=== PATIENT | female | born 1960 | race Caucasian/White ===

== ENCOUNTER 2016-12-19 11:11 | Observation (INO) | payer OTHER ==
[2016-12-19] MEDS ORDERED: SODIUM CHLORIDE 0.9% 1,000 ML IV STA (11:44)
--- NOTE | 2016-12-19 11:47 | ED ---
General Adult HPI - General Chief complaint: Weakness Stated complaint: weakness Time Seen by Provider: 12/19/16 11:22 Source: patient, family, RN notes reviewed Mode of arrival: wheelchair Limitations: no limitations - History of Present Illness Initial comments: Patient is a pleasant 56-year-old female presenting to the emergency Department complaining of generalized weakness. Symptoms started 1 week ago and have progressed since that time. Weakness is mostly of the legs however patient does admit to having some weakness of the upper body also. No history of similar symptoms previously. Patient states she is only able to take a few steps now without using a walker. Patient does not normally use a walker however head around from a previous pelvic fracture. Patient admits to being on a liquid diet for the past month and questions if this could be related. No confusion. - Related Data Home Medications Medication Instructions Recorded Confirmed Folic Acid 1 mg PO DAILY 02/06/16 12/19/16 Omeprazole [PriLOSEC] 20 mg PO DAILY PRN 02/06/16 12/19/16 Hydroxychloroquine Sulfate 200 mg PO DAILY 06/12/16 12/19/16 [Plaquenil] Metoprolol Succinate (ER) [Toprol 50 mg PO DAILY 06/13/16 12/19/16 Xl] Potassium Chloride ER [K-Dur 20] 20 meq PO DAILY 06/13/16 12/19/16 predniSONE [Prednisone] 5 mg PO DAILY 06/13/16 12/19/16 ALPRAZolam [Xanax] 0.5 mg PO DAILY PRN 12/19/16 12/19/16 DULoxetine HCL [Cymbalta] 60 mg PO DAILY 12/19/16 12/19/16 Gabapentin 600 mg PO TID 12/19/16 12/19/16 Lacosamide [Vimpat] 5 mg PO DAILY 12/19/16 12/19/16 Multivitamins, Thera [Multivitamin] 1 tab PO DAILY 12/19/16 12/19/16 Allergies Allergy/AdvReac Type Severity Reaction Status Date / Time No Known Allergies Allergy Verified 12/19/16 11:55 Review of Systems ROS Statement: Those systems with pertinent positive or pertinent negative responses have been documented in the HPI. ROS Other: All systems not noted in ROS Statement are negative. Constitutional: Denies: fever Eyes: Denies: eye pain ENT: Denies: ear pain Respiratory: Denies: cough Cardiovascular: Denies: chest pain Endocrine: Reports: fatigue Gastrointestinal: Denies: abdominal pain Genitourinary: Denies: dysuria Musculoskeletal: Denies: back pain Skin: Denies: rash Neurological: Reports: weakness. Denies: headache, confusion Past Medical History Past Medical History: Hypertension, Osteoarthritis (OA), Rheumatoid Arthritis ( RA) Additional Past Medical History / Comment(s): neuropathy Vitiligo, Raynaud's peripheral neuropathy. History of Any Multi-Drug Resistant Organisms: MRSA Date of last positivie culture/infection: 2012/MRSA MDRO Source:: left axilla Past Surgical History: Appendectomy, Section, Joint Replacement, Orthopedic Surgery, Tonsillectomy, Tubal Ligation Additional Past Surgical History / Comment(s): shoulder replacement Past Anesthesia/Blood Transfusion Reactions: No Reported Reaction Past Psychological History: Depression Smoking Status: Current every day smoker Past Alcohol Use History: Daily Past Drug Use History: None Reported - Past Family History Mother Family Medical History: No Reported History, Diabetes Mellitus, Hyperlipidemia, Hypertension Father Family Medical History: Diabetes Mellitus, Hypertension (black lung from occupational exposure) Sister(s) Family Medical History: No Reported History Son(s) Family Medical History: No Reported History General Exam Limitations: no limitations General appearance: alert, in no apparent distress Head exam: Present: atraumatic Eye exam: Present: normal appearance, PERRL ENT exam: Present: normal oropharynx Neck exam: Present: normal inspection Respiratory exam: Present: normal lung sounds bilaterally Cardiovascular Exam: Present: regular rate, normal rhythm GI/Abdominal exam: Present: soft. Absent: tenderness Extremities exam: Present: normal inspection Neurological exam: Present: alert, oriented X3, CN II-XII intact Expanded Patient oriented to: Present: person, place, time Speech: Present: fluid speech Cranial nerves: EOM's Intact: Normal, Facial Sensation: Normal Cerebellar function: Finger to Nose: Normal Sensory exam: Upper Extremity Light Touch: Normal, Lower Extremity Light Touch: Normal Motor strength exam: RUE: 5, LUE: 5, RLE: 4 (Minimal drift), LLE: 4 ( MinimalDrift) Eye Response: (4) open spontaneously Motor Response: (6) obeys commands Verbal Response: (5) oriented Psychiatric exam: Present: normal affect, normal mood Skin exam: Absent: rash Course Vital Signs 12/19/16 12/19/16 12/19/16 11:15 11:33 13:26 Temperature 97.8 F Pulse Rate 97 87 82 Respiratory 20 15 14 Rate Blood Pressure 108/72 138/90 124/72 O2 Sat by Pulse 100 96 96 Oximetry EKG Findings - EKG Comments: EKG Findings:: Normal sinus rhythm at 87. DE 128. QRS 96. Qt 422. QTC 507. Normal axis. Normal QRS. No acute ST change. Medical Decision Making - Medical Decision Making Patient reexamined and unchanged. Case was discussed in detail with Dr. Arthur, who will admit for Dr. Garcia. She does recommend further imaging of the lumbar spine and neurology evaluation. - Lab Data Result diagrams: 12/19/16 11:49 12/19/16 11:49 Lab Results 12/19/16 12/19/16 12/19/16 Range/Units 11:49 11:49 11:49 WBC 5.3 (3.8-10.6) k/uL RBC 4.48 (3.80-5.40) m/uL Hgb 14.1 (11.4-16.0) gm/dL Hct 46.4 H (34.0-46.0) % MCV 103.5 H (80.0-100.0) fL MCH 31.5 (25.0-35.0) pg MCHC 30.5 L (31.0-37.0) g/dL RDW 14.1 (11.5-15.5) % Plt Count 114 L (150-450) k/uL Neutrophils % 68 % Lymphocytes % 22 % Monocytes % 5 % Eosinophils % 3 % Basophils % 1 % Neutrophils # 3.6 (1.3-7.7) k/uL Lymphocytes # 1.2 (1.0-4.8) k/uL Monocytes # 0.3 (0-1.0) k/uL Eosinophils # 0.1 (0-0.7) k/uL Basophils # 0.0 (0-0.2) k/uL Hypochromasia Slight Macrocytosis Slight PT (9.0-12.0) sec INR (<1.1) APTT (22.0-30.0) sec Sodium 138 (137-145) mmol/L Potassium 5.1 (3.5-5.1) mmol/L Chloride 103 (98-107) mmol/L Carbon Dioxide 29 (22-30) mmol/L Anion Gap 6 mmol/L BUN 10 (7-17) mg/dL Creatinine 0.60 (0.52-1.04) mg/dL Est GFR (MDRD) Af Amer >60 (>60 ml/min/1.73 sqM) Est GFR (MDRD) Non-Af >60 (>60 ml/min/1.73 sqM) Glucose 120 H (74-99) mg/dL Calcium 9.2 (8.4-10.2) mg/dL Ionized Calcium Ramona 5.2 (4.5-5.3) mg/dL Phosphorus 3.4 (2.5-4.5) mg/dL Magnesium 1.5 L (1.6-2.3) mg/dL Total Bilirubin 1.3 (0.2-1.3) mg/dL AST 94 H (14-36) U/L ALT 85 H (9-52) U/L Alkaline Phosphatase 210 H (38-126) U/L Total Creatine Kinase <20 L (30-135) U/L CK-MB (CK-2) 0.5 (0.0-2.4) ng/mL CK-MB (CK-2) Rel Index 0.0 Troponin I <0.012 (0.000-0.034) ng/mL Total Protein 6.2 L (6.3-8.2) g/dL Albumin 2.9 L (3.5-5.0) g/dL TSH 1.730 (0.465-4.680) mIU/L Free T4 0.99 (0.78-2.19) ng/dL Free T3 pg/mL 3.8 (2.8-5.3) pg/ml 12/19/16 Range/Units 11:49 WBC (3.8-10.6) k/uL RBC (3.80-5.40) m/uL Hgb (11.4-16.0) gm/dL Hct (34.0-46.0) % MCV (80.0-100.0) fL MCH (25.0-35.0) pg MCHC (31.0-37.0) g/dL RDW (11.5-15.5) % Plt Count (150-450) k/uL Neutrophils % % Lymphocytes % % Monocytes % % Eosinophils % % Basophils % % Neutrophils # (1.3-7.7) k/uL Lymphocytes # (1.0-4.8) k/uL Monocytes # (0-1.0) k/uL Eosinophils # (0-0.7) k/uL Basophils # (0-0.2) k/uL Hypochromasia Macrocytosis PT 11.6 (9.0-12.0) sec INR 1.2 (<1.1) APTT 23.2 (22.0-30.0) sec Sodium (137-145) mmol/L Potassium (3.5-5.1) mmol/L Chloride (98-107) mmol/L Carbon Dioxide (22-30) mmol/L Anion Gap mmol/L BUN (7-17) mg/dL Creatinine (0.52-1.04) mg/dL Est GFR (MDRD) Af Amer (>60 ml/min/1.73 sqM) Est GFR (MDRD) Non-Af (>60 ml/min/1.73 sqM) Glucose (74-99) mg/dL Calcium (8.4-10.2) mg/dL Ionized Calcium Ramona (4.5-5.3) mg/dL Phosphorus (2.5-4.5) mg/dL Magnesium (1.6-2.3) mg/dL Total Bilirubin (0.2-1.3) mg/dL AST (14-36) U/L ALT (9-52) U/L Alkaline Phosphatase (38-126) U/L Total Creatine Kinase (30-135) U/L CK-MB (CK-2) (0.0-2.4) ng/mL CK-MB (CK-2) Rel Index Troponin I (0.000-0.034) ng/mL Total Protein (6.3-8.2) g/dL Albumin (3.5-5.0) g/dL TSH (0.465-4.680) mIU/L Free T4 (0.78-2.19) ng/dL Free T3 pg/mL (2.8-5.3) pg/ml - Radiology Data Radiology results: image reviewed (Computed tomography scan of brain shows some atrophy otherwise no acute abnormality. Chest x-ray shows no acute process.) Disposition Clinical Impression: Lower extremity weakness Disposition: ADMITTED IP TO THIS HOSP
[2016-12-19 12:06] LABS: Basophils % (A) 1 %; CH 31.6; CHCM 30.7; Eosinophils # (A) 0.1 k/uL (0-0.7); Eosinophils % (A) 3 %; HCT 46.4 % (34.0-46.0); HDW 2.35; HGB 14.1 gm/dL (11.4-16.0); Hypochromasia Slight; Luc # (Auto) 0.14; Luc % (Auto) 3; Lymphocytes # (A) 1.2 k/uL (1.0-4.8); Lymphocytes % (A) 22 %; MCH 31.5 pg (25.0-35.0); MCHC 30.5 g/dL (31.0-37.0); MCV 103.5 fL (80.0-100.0); Macrocytosis Slight; Mean Platelet Volume 7.6; Monocytes # (A) 0.3 k/uL (0-1.0); Monocytes % (A) 5 %; Neutrophils # (A) 3.6 k/uL (1.3-7.7); Neutrophils % (A) 68 %; RBC 4.48 m/uL (3.80-5.40); RDW 14.1 % (11.5-15.5); WBC 5.3 k/uL (3.8-10.6); WBC (Perox) 5.62
[2016-12-19 12:11] LABS: ALT 85 U/L (9-52); AST 94 U/L (14-36); Alkaline Phosphatase 210 U/L (38-126); Anion Gap 6 mmol/L; Blood Urea Nitrogen 10 mg/dL (7-17); Calcium 9.2 mg/dL (8.4-10.2); Carbon Dioxide 29 mmol/L (22-30); Chloride 103 mmol/L (98-107); Glucose 120 mg/dL (74-99); Magnesium 1.5 mg/dL (1.6-2.3); Non-African American GFR(MDRD) >60 (>60 ml/min/1.73 sqM); Phosphorous 3.4 mg/dL (2.5-4.5); Potassium 5.1 mmol/L (3.5-5.1); Sodium 138 mmol/L (137-145); Total Bilirubin 1.3 mg/dL (0.2-1.3); Total Protein 6.2 g/dL (6.3-8.2)
[2016-12-19 12:23] LABS: Ionized Calcium 5.2 mg/dL (4.5-5.3)
[2016-12-19 12:30] LABS: INR 1.2 (<1.1); Partial Thromboplastin Time 23.2 sec (22.0-30.0); Prothrombin Time 11.6 sec (9.0-12.0)
[2016-12-19 12:33] LABS: Creatine Kinase <20 U/L (30-135)
--- NOTE | 2016-12-19 12:36 | XR ---
EXAMINATION TYPE: XR chest 2V DATE OF EXAM: 12/19/2016 12:28 PM COMPARISON: 06/12/2016 HISTORY: Shortness of breath TECHNIQUE: Frontal and lateral views of the chest are obtained. FINDINGS: Scattered senescent parenchymal changes noted. Hyperinflation compatible with COPD. No evidence for infiltrate. No evidence for atelectasis. Heart size is stable. Mediastinal structures are stable and grossly unremarkable. No evidence for hilar prominence. Degenerative changes dorsal spine. Multiple healed left-sided rib fractures. IMPRESSION: 1. No evidence for acute pulmonary disease.
--- NOTE | 2016-12-19 12:37 | CT ---
EXAMINATION TYPE: CT brain wo con DATE OF EXAM: 12/19/2016 12:29 PM HISTORY: Patient complains of weakness and dizziness. CT DLP: 967.1 mGycm. Automated Exposure Control for Dose Reduction was Utilized. TECHNIQUE: CT scan of the head is performed without contrast. COMPARISON: None. FINDINGS: There is no acute intracranial hemorrhage or midline shift identified. There is diffuse v entricular and sulcal prominence consistent with diffuse age-related cerebral atrophy. The globes are intact and the visualized sinuses are clear. Less opacified right mastoid air cells may reflect jose enital hypoplasia. Non formed right frontal sinus is present. Osseous structures are demineralized. IMPRESSION: No acute intracranial hemorrhage or midline shift. There is mild diffuse age-related ce rebral atrophy noted.
[2016-12-19 12:45] LABS: Creatine Kinase MB 0.5 ng/mL (0.0-2.4); Troponin I <0.012 ng/mL (0.000-0.034)
[2016-12-19] MEDS ORDERED: NALOXONE 0.4 MG/ML 1 ML VIAL IV PRN (13:53)
[2016-12-19] MEDS ORDERED: MAGNESIUM OXIDE 400 MG TAB PO STA (13:55)
[2016-12-19] MEDS ORDERED: LORazepam 2 MG/ML SYRINGE IV PRN (13:57)
[2016-12-19] MEDS ORDERED: PANTOPRAZOLE 40 MG TABLET PO PRN (15:14)
[2016-12-19] MEDS ORDERED: ALPRAZolam 0.5 MG TAB PO PRN (15:14)
--- NOTE | 2016-12-19 16:12 | P.HPIM ---
History of Present Illness H&P Date: 12/19/16 Chief Complaint: Lower extremity weakness, elevated liver function test, nausea and anorexia This is a 56-year-old lady patient of Dr. Bansal. She has underlying history of rheumatoid arthritis, hypertension peripheral neuropathy: Polyps. She follows with Dr. Nidhi encarnacion and Dr. Hernandez. She presented emergency room secondary to weakness for a few days. Patient has had anorexia no abdominal pain no appetite for the past 1 month lost 20 pounds steadily over the past one month. Patient has not had anything to eat except for negligible amount of fluids including pop. She has complained of lower extremity weakness and back pain. Patient does not have any abdominal pain no hematemesis hematochezia or urinary symptoms no headache she has some nausea no vomiting. Patient has difficulty in ambulating secondary to neuropathies in the lower extremities patient has impaired balance in such a way that she has now been using a walker for ambulation In Emergency room initial testing shows hemoglobin of 14.1 and WBC of 5.3 MCV of 103, INR of 1.2, AST ALT elevated at 94 and 85 respectively alkaline phosphatase 210, albumin and protein is low normal thyroid test alcohol is less than 10, MRI of the lumbar spine was requested to evaluate for spinal stenosis, general surgery was requested to evaluate for the ELEVATED alkaline phosphatase as well as the ALT AST, liver ultrasound was requested Review of Systems Constitutional: Reports as per HPI, Reports anorexia, Reports chronic pain, Reports lethargy, Reports weakness, Reports weight loss, Denies chills, Denies chronic headaches, Denies daytime sleepiness, Denies fatigue, Denies fever, Denies malaise, Denies night sweats, Denies poor appetite, Denies sweats, Denies weight gain Ears, nose, mouth and throat: Reports as per HPI, Denies ant. neck pain, Denies bleeding gums, Denies dental pain, Denies dysphagia, Denies epistaxis, Denies headache, Denies hoarseness, Denies mouth pain, Denies nasal congestion, Denies nasal discharge, Denies neck fullness/pressure, Denies neck lump, Denies nose pain, Denies odynophagia, Denies post-nasal drip, Denies sinus pain, Denies sinus pressure, Denies swelling in mouth, Denies swelling in throat, Denies sore throat, Denies vertigo, Denies voice changes Cardiovascular: Reports as per HPI, Denies chest pain, Denies claudication, Denies decreased exercise tolerance, Denies dyspnea on exertion, Denies edema, Denies high blood pressure, Denies irregular heart beat, Denies leg edema, Denies lightheadedness, Denies orthopnea, Denies palpitations, Denies paroxysmal nocturnal dyspnea, Denies phlebitis, Denies rapid heart beat, Denies shortness of breath, Denies syncope Gastrointestinal: Reports as per HPI, Reports nausea, Denies abdominal pain, Denies belching, Denies bloating, Denies BRBPR, Denies change in bowel habits, Denies coffee ground emesis, Denies constipation, Denies diarrhea, Denies dyspepsia, Denies early satiety, Denies excessive gas, Denies heartburn, Denies hematemesis, Denies hematochezia, Denies indigestion, Denies jaundice, Denies lactose intolerance, Denies loss of appetite, Denies melena, Denies vomiting Genitourinary: Reports as per HPI, Denies abnormal vaginal bleeding, Denies decreased libido, Denies difficulty conceiving, Denies difficulty voiding, Denies dysmenorrhea, Denies dyspareunia, Denies dysuria, Denies flank pain, Denies genital sores, Denies hematuria, Denies hot flashes, Denies incomplete emptying, Denies kidney stones, Denies menorrhagia, Denies mixed incontinence, Denies nocturia, Denies pelvic pain, Denies post void dribbling, Denies , Denies prolapse symptoms, Denies stress incontinence, Denies urge incontinence , Denies urgency, Denies urinary frequency, Denies vaginal discharge, Denies vaginal dryness, Denies vaginal itching, Denies vaginal odor Menstruation: Reports as per HPI, Denies amenorrhea, Denies amenorrhea on BC, Denies currently menstrual, Denies cycle < 21 days, Denies cycle > 35 days, Denies cycle variable, Denies menses 1-7 days, Denies menses 8 or > days, Denies menses variable, Denies period heavy, Denies period light, Denies period normal, Denies period spotting, Denies post hysterectomy, Denies postmenopausal , Denies premenarcheal Musculoskeletal: Reports as per HPI Integumentary: Reports as per HPI, Denies acne, Denies boils, Denies brittle nails, Denies change in hair/nails, Denies color changes, Denies darkening of skin, Denies depigmentation, Denies dryness, Denies foot/leg ulcers, Denies growths, Denies hirsutism, Denies lesions, Denies onychomycosis, Denies pruritus , Denies rash, Denies sores, Denies striae, Denies unusual bruising, Denies wounds Neurological: Reports as per HPI, Reports balance difficulties, Reports lack of coordination, Reports numbness, Denies aphasia, Denies ataxia, Denies burning pain, Denies change in mentation, Denies change in smell/taste, Denies change in speech, Denies confusion, Denies convulsions, Denies double vision, Denies gait dysfunction, Denies head injury, Denies headaches, Denies hearing difficulties, Denies loss of vision, Denies memory loss, Denies migraines, Denies motor disturbance, Denies paralysis, Denies paresthesias, Denies seizures , Denies sensory deficit, Denies spasticity, Denies syncope, Denies tic, Denies tingling, Denies transient paralysis, Denies tremors, Denies vertigo, Denies weakness, Denies visual changes Psychiatric: Reports as per HPI, Denies anhedonia, Denies anxiety, Denies anxiety attacks, Denies change in appetite, Denies change in libido, Denies change in sleep habits, Denies confusion, Denies depression, Denies difficulty concentrating, Denies disorientation, Denies hallucinations, Denies hopelessness , Denies hypersomnia, Denies insomnia, Denies irritability, Denies memory loss, Denies mood swings, Denies paranoia, Denies sadness/tearfulness, Denies sleep disturbances, Denies suicidal ideation Endocrine: Reports as per HPI, Denies cold intolerance, Denies deepening of the voice, Denies excessive sweating, Denies excessive thirst, Denies fatigue, Denies flushing, Denies heat intolerance, Denies high blood sugars, Denies increase in ring/shoe/hat size, Denies low blood sugars, Denies nocturia, Denies palpitations, Denies polydipsia, Denies polyphagia, Denies polyuria, Denies proptosis, Denies recent glucocorticoid use, Denies thyroid mass, Denies weight change Hematologic/Lymphatic: Reports as per HPI, Denies easy bleeding, Denies easy bruising, Denies lymphadenopathy, Denies lymphedema, Denies thrombophilia Allergic/Immunologic: Reports as per HPI, Denies allergic rhinitis, Denies anaphylaxis, Denies angioedema, Denies gluten intolerance, Denies persistent infections, Denies seasonal allergies, Denies urticaria, Denies wheezing Past Medical History Past Medical History: Hypertension, Osteoarthritis (OA), Rheumatoid Arthritis ( RA) Additional Past Medical History / Comment(s): neuropathy Vitiligo, Raynaud's peripheral neuropathy. History of Any Multi-Drug Resistant Organisms: MRSA Date of last positivie culture/infection: 06/11/12 MDRO Source:: Unknown Past Surgical History: Appendectomy, Section, Joint Replacement, Orthopedic Surgery, Tonsillectomy, Tubal Ligation Additional Past Surgical History / Comment(s): right shoulder replacement Past Anesthesia/Blood Transfusion Reactions: No Reported Reaction Past Psychological History: Depression Smoking Status: Current every day smoker Past Alcohol Use History: Daily Past Drug Use History: None Reported - Past Family History Mother Family Medical History: No Reported History, Diabetes Mellitus, Hyperlipidemia, Hypertension Father Family Medical History: Diabetes Mellitus, Hypertension Sister(s) Family Medical History: No Reported History Son(s) Family Medical History: No Reported History Medications and Allergies Home Medications Medication Instructions Recorded Confirmed Type Folic Acid 1 mg PO DAILY 02/06/16 12/19/16 History Omeprazole [PriLOSEC] 20 mg PO DAILY PRN 02/06/16 12/19/16 History Hydroxychloroquine Sulfate 200 mg PO DAILY 06/12/16 12/19/16 History [Plaquenil] Metoprolol Succinate (ER) [Toprol 50 mg PO DAILY 06/13/16 12/19/16 History Xl] Potassium Chloride ER [K-Dur 20] 20 meq PO DAILY 06/13/16 12/19/16 History predniSONE [Prednisone] 5 mg PO DAILY 06/13/16 12/19/16 History ALPRAZolam [Xanax] 0.5 mg PO DAILY PRN 12/19/16 12/19/16 History DULoxetine HCL [Cymbalta] 60 mg PO DAILY 12/19/16 12/19/16 History Gabapentin 600 mg PO TID 12/19/16 12/19/16 History Lacosamide [Vimpat] 5 mg PO DAILY 12/19/16 12/19/16 History Multivitamins, Thera [Multivitamin] 1 tab PO DAILY 12/19/16 12/19/16 History Allergies Allergy/AdvReac Type Severity Reaction Status Date / Time No Known Allergies Allergy Verified 12/19/16 11:55 Physical Exam Vitals: Vital Signs Temp Pulse Pulse Resp BP BP Pulse Ox 12/19/16 14:55 98.3 F 80 16 152/74 96 12/19/16 14:15 87 14 127/85 96 Intake and Output 12/19/16 12/19/16 12/19/16 06:59 14:59 22:59 Other: Weight 62.8 kg Patient Weight 12/20/16 06:59 Weight 62.8 kg - Constitutional General appearance: average body habitus, cooperative, no acute distress - EENT Eyes: anicteric sclerae, EOMI, PERRLA, dentition normal, normal appearance ENT: hearing grossly normal, normal oropharynx - Neck Neck: no lymphadenopathy, normal ROM, no other, no rigidity, no stridor, no thyromegaly - Respiratory Respiratory: bilateral: CTA, negative: diminished, dullness, rales, rhonchi - Cardiovascular Rhythm: regular Heart sounds: normal: S1, S2 Abnormal Heart Sounds: no systolic murmur, no diastolic murmur, no rub, no S3 Gallop, no S4 Gallop, no click, no other - Gastrointestinal General gastrointestinal: no absent bowel sounds, no decreased bowel sounds, no distended, no hepatomegaly, no hyperactive bowel sounds, no normal bowel sounds , no organomegaly, no rigid, no scaphoid, soft, no splenomegaly, no tenderness, no umbilical hernia, no ventral hernia - Integumentary Integumentary: normal, normal turgor - Neurologic Neurologic: CNII-XII intact - Musculoskeletal Musculoskeletal: generalized weakness, strength equal bilaterally - Psychiatric Psychiatric: A&O x's 3, appropriate affect, intact judgment & insight Results CBC & Chem 7: 12/19/16 11:49 12/19/16 11:49 Labs: Laboratory Results WBC 5.3 k/uL (3.8-10.6) 12/19/16 11:49 RBC 4.48 m/uL (3.80-5.40) 12/19/16 11:49 Hgb 14.1 gm/dL (11.4-16.0) 12/19/16 11:49 Hct 46.4 % (34.0-46.0) H 12/19/16 11:49 MCV 103.5 fL (80.0-100.0) H 12/19/16 11:49 MCH 31.5 pg (25.0-35.0) 12/19/16 11:49 MCHC 30.5 g/dL (31.0-37.0) L 12/19/16 11:49 RDW 14.1 % (11.5-15.5) 12/19/16 11:49 Plt Count 114 k/uL (150-450) L 12/19/16 11:49 Neutrophils % 68 % 12/19/16 11:49 Lymphocytes % 22 % 12/19/16 11:49 Monocytes % 5 % 12/19/16 11:49 Eosinophils % 3 % 12/19/16 11:49 Basophils % 1 % 12/19/16 11:49 Neutrophils # 3.6 k/uL (1.3-7.7) 12/19/16 11:49 Lymphocytes # 1.2 k/uL (1.0-4.8) 12/19/16 11:49 Monocytes # 0.3 k/uL (0-1.0) 12/19/16 11:49 Eosinophils # 0.1 k/uL (0-0.7) 12/19/16 11:49 Basophils # 0.0 k/uL (0-0.2) 12/19/16 11:49 Hypochromasia Slight 12/19/16 11:49 Macrocytosis Slight 12/19/16 11:49 PT 11.6 sec (9.0-12.0) 12/19/16 11:49 INR 1.2 (<1.1) 12/19/16 11:49 APTT 23.2 sec (22.0-30.0) 12/19/16 11:49 Sodium 138 mmol/L (137-145) 12/19/16 11:49 Potassium 5.1 mmol/L (3.5-5.1) 12/19/16 11:49 Chloride 103 mmol/L (98-107) 12/19/16 11:49 Carbon Dioxide 29 mmol/L (22-30) 12/19/16 11:49 Anion Gap 6 mmol/L 12/19/16 11:49 BUN 10 mg/dL (7-17) 12/19/16 11:49 Creatinine 0.60 mg/dL (0.52-1.04) 12/19/16 11:49 Est GFR (MDRD) Af Amer >60 (>60 ml/min/1.73 sqM) 12/19/16 11:49 Est GFR (MDRD) Non-Af >60 (>60 ml/min/1.73 sqM) 12/19/16 11:49 Glucose 120 mg/dL (74-99) H 12/19/16 11:49 Calcium 9.2 mg/dL (8.4-10.2) 12/19/16 11:49 Ionized Calcium [place] 5.2 mg/dL (4.5-5.3) 12/19/16 11:49 Phosphorus 3.4 mg/dL (2.5-4.5) 12/19/16 11:49 Magnesium 1.5 mg/dL (1.6-2.3) L 12/19/16 11:49 Total Bilirubin 1.3 mg/dL (0.2-1.3) 12/19/16 11:49 AST 94 U/L (14-36) H 12/19/16 11:49 ALT 85 U/L (9-52) H 12/19/16 11:49 Alkaline Phosphatase 210 U/L (38-126) H 12/19/16 11:49 Total Creatine Kinase <20 U/L (30-135) L 12/19/16 11:49 CK-MB (CK-2) 0.5 ng/mL (0.0-2.4) 12/19/16 11:49 CK-MB (CK-2) Rel Index 0.0 12/19/16 11:49 Troponin I <0.012 ng/mL (0.000-0.034) 12/19/16 11:49 Total Protein 6.2 g/dL (6.3-8.2) L 12/19/16 11:49 Albumin 2.9 g/dL (3.5-5.0) L 12/19/16 11:49 TSH 1.730 mIU/L (0.465-4.680) 12/19/16 11:49 Free T4 0.99 ng/dL (0.78-2.19) 12/19/16 11:49 Free T3 pg/mL 3.8 pg/ml (2.8-5.3) 12/19/16 11:49 Serum Alcohol <10 mg/dL 12/19/16 14:20 Thrombosis Risk Factor Assmnt - DVT/VTE Prophylaxis DVT/VTE Prophylaxis: Low risk, early ambulation encouraged - Choose All That Apply Any of the Below Risk Factors Present?: Yes Each Factor Represents 1 point: Age 41-60 years Other Risk Factors: No Other congenital or acquired thrombophilia - If yes, enter type in comment: No Thrombosis Risk Factor Assessment Total Risk Factor Score: 1 Thrombosis Risk Factor Assessment Level: Low Risk Assessment and Plan Plan: 1. Generalized weakness with low back pain, lower extremity weakness underlying peripheral neuropathy or spinal stenosis is expected. Patient's to continue on neuropathic pain control to include gabapentin, Cymbalta,, await MRI of the spine patient might need additional treatment including IV Solu- Medrol. Consult was made with Dr. Pacheco neurology 2. Malnutrition secondary to anorexia and diminished oral intake etiology is undetermined however she has underlying colon polyps diagnosed in 2016, as well as elevated liver function tests. Gallbladder pathology needs to be ruled out, continue on PPI treatments she is on chronic prednisone, consult was made with Dr. Paredes for cholestasis against obstructive jaundice, liver ultrasound gallbladder ultrasound was requested. 3. Rheumatoid arthritis on chronic prednisone, Plaquenil, no changes were made 4. Chronic prednisone patient was started on IV Protonix and to be maintained on oral prednisone post discharge 5. Anorexia cause is undetermined at this time gallbladder pathology needs to be ruled out. Patient might need a HIDA scan with CCK if ultrasound was negative 6. Elevated liver function test along with alkaline phosphatase elevation, normal bilirubins at this time. Patient also has chronic alcohol exposure her last alcohol intake was 2 weeks prior to admission. Repeat liver function test normal lipase noted on this current examination, abdominal ultrasound was requested 7. Impaired balance, physical therapy would be following the patient patient might need home therapies currently walker on a community ambulation 8. Chronic alcohol ingestion with ROM, last alcohol intake was 2 weeks prior to admission GI prophylaxis and DVT prophylaxis, early ambulation for caprini score of score of 1
--- NOTE | 2016-12-19 16:32 | P.GSCN ---
History of Present Illness Consult date: 12/19/16 Reason for Consult: Elevated liver enzymes History of present illness: Patient hospitalized with lower extremity weakness. This is progressive. She was also found to have elevated liver enzymes. The patient states she was first told her liver enzymes were elevated about a year ago. She was told this was likely related to methotrexate being used for her rheumatoid arthritis. She has a history of chronic alcohol use that is moderate in nature. She was never told that her alcohol contributed to her liver problems. Denies cirrhosis. Denies abdominal pain. An abdominal ultrasound has been ordered to evaluate the gallbladder. She has seen Dr. Cobian in the past for colonoscopy. Review of Systems The patient denies any acute changes in his vision or hearing, no dysphagia or odynophagia, no chest pain or shortness of breath, no dysuria or hematuria, no headache, no runny nose, no rectal bleeding or melena, no unexplained weight loss Past Medical History Past Medical History: Hypertension, Osteoarthritis (OA), Rheumatoid Arthritis ( RA) Additional Past Medical History / Comment(s): neuropathy Vitiligo, Raynaud's peripheral neuropathy. History of Any Multi-Drug Resistant Organisms: MRSA Year Discovered:: 06/11/12 MDRO Source:: Unknown Past Surgical History: Appendectomy, Section, Joint Replacement, Orthopedic Surgery, Tonsillectomy, Tubal Ligation Additional Past Surgical History / Comment(s): right shoulder replacement Past Anesthesia/Blood Transfusion Reactions: No Reported Reaction Past Psychological History: Depression Smoking Status: Current every day smoker Past Alcohol Use History: Daily Past Drug Use History: None Reported - Past Family History Mother Family Medical History: No Reported History, Diabetes Mellitus, Hyperlipidemia, Hypertension Father Family Medical History: Diabetes Mellitus, Hypertension Sister(s) Family Medical History: No Reported History Son(s) Family Medical History: No Reported History Medications and Allergies Home Medications Medication Instructions Recorded Confirmed Type Folic Acid 1 mg PO DAILY 02/06/16 12/19/16 History Omeprazole [PriLOSEC] 20 mg PO DAILY PRN 02/06/16 12/19/16 History Hydroxychloroquine Sulfate 200 mg PO DAILY 06/12/16 12/19/16 History [Plaquenil] Metoprolol Succinate (ER) [Toprol 50 mg PO DAILY 06/13/16 12/19/16 History Xl] Potassium Chloride ER [K-Dur 20] 20 meq PO DAILY 06/13/16 12/19/16 History predniSONE [Prednisone] 5 mg PO DAILY 06/13/16 12/19/16 History ALPRAZolam [Xanax] 0.5 mg PO DAILY PRN 12/19/16 12/19/16 History DULoxetine HCL [Cymbalta] 60 mg PO DAILY 12/19/16 12/19/16 History Gabapentin 600 mg PO TID 12/19/16 12/19/16 History Lacosamide [Vimpat] 5 mg PO DAILY 12/19/16 12/19/16 History Multivitamins, Thera [Multivitamin] 1 tab PO DAILY 12/19/16 12/19/16 History Allergies Allergy/AdvReac Type Severity Reaction Status Date / Time No Known Allergies Allergy Verified 12/19/16 11:55 Surgical - Exam Vital Signs Temp Pulse Resp BP Pulse Ox 97.8 F 97 20 108/72 100 12/19/16 11:15 12/19/16 11:15 12/19/16 11:15 12/19/16 11:15 12/19/16 11:15 Physical exam: General: Well-developed, well-nourished HEENT: Normocephalic, sclerae nonicteric Abdomen: Nontender, nondistended Extremities: No edema Neuro: Alert and oriented Results - Labs 12/19/16 11:49 12/19/16 11:49 Assessment and Plan (1) Elevated liver enzymes Narrative/Plan: We'll review the patient's abdominal ultrasound. If no gallbladder pathology is identified consider GI evaluation. Status: Acute
[2016-12-19] MEDS: GABAPENTIN 300 MG CAP PO SCH ×2 (16:57→20:57)
[2016-12-19] MEDS: THIAMINE 100 MG TAB PO SCH (17:42)
--- NOTE | 2016-12-19 18:17 | P.CNNES ---
History of Present Illness Consult date: 12/19/16 History of Present Illness: The patient is a 56-year-old right-handed white female with history of painful p [place] neuropathy diagnosed over a year ago. She reports that she has been having painful tingling sensation in her hands and feet for over a year. She has been seeing a neurologist Dr. Hernandez and had an EMG study done over a year ago. She states she was started on gabapentin 600 mg 3 times a day for the painful sensations in her hands and feet. The patient reports that over the last 2 weeks she has noticed weakness particularly in her legs. There has been no falls. She did start using a walker is ago for fear of falling. X The patient apparently has had some weight loss of 20 pounds over the past 1 month. She describes also some numbness from the neck down on the backside of her body. Liver enzymes have been elevated she states for a year. She denies any bowel or bladder incontinence Review of Systems Constitutional: Denies chills, Denies fever Eyes: denies blurred vision, denies pain Ears, nose, mouth and throat: Denies headache, Denies sore throat Cardiovascular: Denies chest pain, Denies shortness of breath Respiratory: Denies cough Gastrointestinal: Denies abdominal pain, Denies diarrhea, Denies nausea, Denies vomiting Genitourinary: Denies dysuria, Denies hematuria Musculoskeletal: Denies myalgias Integumentary: Denies pruritus, Denies rash Neurological: Denies numbness, Denies weakness Psychiatric: Denies anxiety, Denies depression Endocrine: Denies fatigue, Denies weight change Past Medical History Past Medical History: Hypertension, Osteoarthritis (OA), Rheumatoid Arthritis ( RA) Additional Past Medical History / Comment(s): neuropathy Vitiligo, Raynaud's peripheral neuropathy. History of Any Multi-Drug Resistant Organisms: MRSA Date of last positivie culture/infection: 06/11/12 MDRO Source:: Unknown Past Surgical History: Appendectomy, Section, Joint Replacement, Orthopedic Surgery, Tonsillectomy, Tubal Ligation Additional Past Surgical History / Comment(s): right shoulder replacement Past Anesthesia/Blood Transfusion Reactions: No Reported Reaction Past Psychological History: Depression Smoking Status: Current every day smoker Past Alcohol Use History: Daily Past Drug Use History: None Reported - Past Family History Mother Family Medical History: No Reported History, Diabetes Mellitus, Hyperlipidemia, Hypertension Father Family Medical History: Diabetes Mellitus, Hypertension Sister(s) Family Medical History: No Reported History Son(s) Family Medical History: No Reported History Medications and Allergies Home Medications Medication Instructions Recorded Confirmed Type Folic Acid 1 mg PO DAILY 02/06/16 12/19/16 History Omeprazole [PriLOSEC] 20 mg PO DAILY PRN 02/06/16 12/19/16 History Hydroxychloroquine Sulfate 200 mg PO DAILY 06/12/16 12/19/16 History [Plaquenil] Metoprolol Succinate (ER) [Toprol 50 mg PO DAILY 06/13/16 12/19/16 History Xl] Potassium Chloride ER [K-Dur 20] 20 meq PO DAILY 06/13/16 12/19/16 History predniSONE [Prednisone] 5 mg PO DAILY 06/13/16 12/19/16 History ALPRAZolam [Xanax] 0.5 mg PO DAILY PRN 12/19/16 12/19/16 History DULoxetine HCL [Cymbalta] 60 mg PO DAILY 12/19/16 12/19/16 History Gabapentin 600 mg PO TID 12/19/16 12/19/16 History Lacosamide [Vimpat] 5 mg PO DAILY 12/19/16 12/19/16 History Multivitamins, Thera [Multivitamin] 1 tab PO DAILY 12/19/16 12/19/16 History Allergies Allergy/AdvReac Type Severity Reaction Status Date / Time No Known Allergies Allergy Verified 12/19/16 11:55 Physical Examination - Vital Signs Vital Signs: Vital Signs Temp Pulse Pulse Resp BP BP Pulse Ox 12/19/16 16:00 80 16 12/19/16 14:55 98.3 F 80 16 152/74 96 12/19/16 14:15 87 14 127/85 96 Intake and Output 12/19/16 12/19/16 12/19/16 06:59 14:59 22:59 Other: Voiding Method Toilet Weight 62.8 kg Patient Weight 12/20/16 06:59 Weight 62.8 kg - Constitutional General appearance: average body habitus - EENT EENT: hearing intact, vision intact - Respiratory Respiratory: lungs clear, normal breath sounds - Cardiovascular Cardiovascular: regular rate, normal S1, normal S2 - Integumentary Integumentary: rash - Neurologic Cranial nerve examination: PERRL, EOMI, VFF, V1/V2/V3 grossly intact, face symmetric, tongue midline Detailed motor examination: other (She is able to lift her limbs up against gravity she has generalized weakness) Detailed sensory examination: other (Recommendation and has decreased light touch in hands and feet 11 stocking distribution as well as hyperesthesia area there is also questionable sensory level at cervical thoracic spine) Results - Laboratory Findings CBC and BMP: 12/19/16 11:49 12/19/16 11:49 Assessment and Plan (1) Lower extremity weakness Status: Acute Code(s): R29.898 - OTH SYMPTOMS AND SIGNS INVOLVING THE MUSCULOSKELETAL SYSTEM (2) Polyneuropathy Status: Chronic Code(s): G62.9 - POLYNEUROPATHY, UNSPECIFIED Plan: The patient has a subacute onset painful polyneuropathy for the past 1 year. She also has recent onset weakness in the legs. This may be a component of her underlying neuropathy however given her new numbness at the neck level and we would need to to rule out a spinal cord problem. Recommend cervicals and thoracic spine MRI
[2016-12-19 19:23] LABS: Amorphous Sediment,Urine Occasional /hpf; Appearance,Urine Cloudy (Clear); Bilirubin,Urine 1+ (Negative); Glucose,Urine (UA) Negative (Negative); Ketones,Urine Negative (Negative); Leukocyte Esterase,Urine Moderate (Negative); Mucus,Urine Many /hpf; Nitrite,Urine Negative (Negative); PH, Urine 6.5 (5.0-8.0); Particle Count 8513; Protein,Urine 1+ (Negative); RBC,Urine 1 /hpf (0-5); Specific Gravity,Urine 1.011 (1.001-1.035); Squamous Epithelial Cell,Urine 16 /hpf (0-4); UA Billing (MACRO vs. MICRO) MICRO; WBC,Urine 16 /hpf (0-5)
[2016-12-20] MEDS: GABAPENTIN 300 MG CAP PO SCH ×3 (08:23→20:50)
[2016-12-20] MEDS: HYDROXYCHLOROQUINE SULFATE 200 MG TAB PO SCH (08:23)
[2016-12-20] MEDS: METOPROLOL SUCCINATE (ER) 50 MG TAB.ER.24H PO SCH (08:24)
[2016-12-20] MEDS: DULoxetine HCL 60 MG CAPSULE.DR PO SCH (08:25)
[2016-12-20] MEDS: POTASSIUM CHLORIDE ER 20 MEQ TAB.ER PO SCH (08:25)
[2016-12-20] MEDS: predniSONE 5 MG TAB PO SCH (08:25)
[2016-12-20] MEDS: FOLIC ACID 1 MG TAB PO SCH (08:25)
[2016-12-20] MEDS: MULTIVITAMINS, THERA 1 EACH TAB PO SCH (08:25)
[2016-12-20] MEDS: LACOSAMIDE 50 MG TABLET PO SCH (08:26)
[2016-12-20 08:29] LABS: ALT 74 U/L (9-52); AST 79 U/L (14-36); Alkaline Phosphatase 172 U/L (38-126); Anion Gap 3 mmol/L; Blood Urea Nitrogen 7 mg/dL (7-17); Calcium 8.5 mg/dL (8.4-10.2); Carbon Dioxide 29 mmol/L (22-30); Chloride 106 mmol/L (98-107); Glucose 79 mg/dL (74-99); Non-African American GFR(MDRD) >60 (>60 ml/min/1.73 sqM); Potassium 4.8 mmol/L (3.5-5.1); Sodium 138 mmol/L (137-145); Total Bilirubin 1.2 mg/dL (0.2-1.3); Total Protein 5.1 g/dL (6.3-8.2)
[2016-12-20] MEDS ORDERED: PANTOPRAZOLE 40 MG/10 ML VIAL IV SCH (09:00)
--- NOTE | 2016-12-20 11:40 | US ---
EXAMINATION TYPE: US abdomen limited DATE OF EXAM: 12/20/2016 11:21 AM COMPARISON: NONE CLINICAL HISTORY: elevated LFT. Inpatient for generalized weakness EXAM MEASUREMENTS: Liver Length: 16.8 cm Gallbladder Wall: 0.1 cm CBD: 0.4 cm Right Kidney: 11.2 x 6.1 x 4.4 cm TECHNOLOGIST IMPRESSION: Pancreas: hyperechoic Liver: hyperechoic/ fatty liver; complex cyst noted at upper right lobe with posterior enhancement = 1.1 x 1.0 x 1.3cm Gallbladder: wnl Evidence for sonographic Rendon's sign: No CBD: wnl Right Kidney: wnl Visualized pancreas heterogeneous in appearance without evidence of pancreatic mass or ductal dilatat ion. Liver is heterogeneously hyperechoic in appearance without hepatic ductal dilatation. Evaluation for masses is limited due to the heterogeneity. A 1.3 cm round hypoechoic anechoic lesion with incre ased through transmission right lobe of liver is marked by technologist. Lesion is too small to furth er characterize favor benign on ultrasound. IMPRESSION: Heterogeneity of liver may reflect diffuse fatty infiltration or underlying hepatocellula r disease. Imaging guided random biopsy for tissue analysis can be performed if desired. A 1.3 cm hyp oechoic anechoic lesion is too small to further characterize favored benign.
[2016-12-20] MEDS ORDERED: MULTIVITAMINS, THERA 1 EACH TAB PO SCH (12:00)
[2016-12-20 15:33] VITALS: BMI 21.7
[2016-12-20] MEDS: THIAMINE 100 MG TAB PO SCH ×2 (17:39)
[2016-12-20] MEDS ORDERED: IBUPROFEN 600 MG TAB PO PRN (17:45)
--- NOTE | 2016-12-20 17:49 | MR ---
EXAMINATION TYPE: MR lumbar spine wo con DATE OF EXAM: 12/20/2016 4:56 PM COMPARISON: NONE HISTORY: TECHNIQUE: Multiplanar, multisequence images of the lumbar spine were acquired. The vertebra have normal alignment. There is degenerative disc space narrowing throughout the lumbar spine. There is no compression fracture. Posterior elements appear intact. There are small posterior disc herniations from levels of L2-S1 without significant encroachment on the spinal canal. There is hypertrophic facet arthropathy throughout the lumbar spine. I see no bony destructive process. There is mild narrowing of the neural foramina bilaterally throughout the lumbar spine due to disc space na rrowing and facet arthropathy. IMPRESSION: Multilevel spondylosis with facet arthropathy and small posterior central disc herniations. No signif icant spinal stenosis. There is mild neural foraminal narrowing bilaterally throughout the lumbar spi ne. No fracture. This patient is probably at increased risk for acquired spinal stenosis related to f acet arthropathy.
--- NOTE | 2016-12-20 18:06 | P.PN ---
Subjective Principal diagnosis: Elevated LFTs Patient denies abdominal pain. Abdominal ultrasound today shows heterogeneity of the liver but no gallstones. No biliary dilation noted. Tolerating diet. Objective - Vital Signs Vital signs: Vital Signs Temp 98.0 F 12/20/16 12:00 Pulse 86 12/20/16 12:00 Resp 16 12/20/16 12:00 BP 142/72 12/20/16 12:00 Pulse Ox 96 12/20/16 12:00 Intake & Output 12/19/16 12/20/16 12/20/16 18:59 06:59 18:59 Intake Total 500 Balance 500 Weight 62.8 kg 62.8 kg 62.8 kg Intake: Oral 500 Other: Voiding Method Toilet Toilet Toilet # Voids 3 1 - Exam Abdomen: Soft, nontender, nondistended - Labs CBC & Chem 7: 12/19/16 11:49 12/20/16 07:44 Labs: Abnormal Lab Results - Last 24 Hours (Table) 12/19/16 12/20/16 Range/Units 18:58 07:44 AST 79 H (14-36) U/L ALT 74 H (9-52) U/L Alkaline Phosphatase 172 H (38-126) U/L Total Protein 5.1 L (6.3-8.2) g/dL Albumin 2.2 L (3.5-5.0) g/dL Urine Appearance Cloudy H (Clear) Urine Protein 1+ H (Negative) Urine Bilirubin 1+ H (Negative) Ur Leukocyte Esterase Moderate H (Negative) Urine WBC 16 H (0-5) /hpf Ur Squamous Epith Cells 16 H (0-4) /hpf Amorphous Sediment Occasional H (None) /hpf Hyaline Casts 23 H (0-2) /lpf Urine Mucus Many H (None) /hpf Assessment and Plan (1) Elevated liver enzymes Narrative/Plan: Continue diet as tolerated. No surgical intervention planned. Patient is already familiar with Dr. Cobian, would advise outpatient follow-up with her to discuss her elevated liver enzymes and to determine whether liver biopsy is indicated. We'll sign off at this point. Please contact if needed. Status: Acute
--- NOTE | 2016-12-20 18:43 | P.PN ---
Subjective Principal diagnosis: Painful peripheral neuropathy weakness in the legs The patient is a 56-year-old woman admitted to the hospital with weakness in the legs. She states she is feeling somewhat stronger today. She has been walking with a walker. She has a history of chronic paresthesias and was diagnosed with painful polyneuropathy. She has been having some new numbness in the back and further investigation was done with MRI of the cervical thoracic spine. He had a lumbar MRI which showed mild disc herniations and spondylosis. Objective - Vital Signs Vital signs: Vital Signs Temp 98.0 F 12/20/16 12:00 Pulse 86 12/20/16 12:00 Resp 16 12/20/16 12:00 BP 142/72 12/20/16 12:00 Pulse Ox 96 12/20/16 12:00 Intake & Output 12/19/16 12/20/16 12/20/16 18:59 06:59 18:59 Intake Total 500 Balance 500 Weight 62.8 kg 62.8 kg 62.8 kg Intake: Oral 500 Other: Voiding Method Toilet Toilet Toilet # Voids 3 1 - Constitutional General appearance: Present: average body habitus - EENT Eyes: Present: EOMI, PERRLA - Respiratory Respiratory: bilateral: CTA - Cardiovascular Rhythm: regular - Neurologic Neurologic: Present: CNII-XII intact - Musculoskeletal Musculoskeletal: Present: strength equal bilaterally - Psychiatric Psychiatric: Present: A&O x's 3 - Labs CBC & Chem 7: 12/19/16 11:49 12/20/16 07:44 Labs: Abnormal Lab Results - Last 24 Hours (Table) 12/19/16 12/20/16 Range/Units 18:58 07:44 AST 79 H (14-36) U/L ALT 74 H (9-52) U/L Alkaline Phosphatase 172 H (38-126) U/L Total Protein 5.1 L (6.3-8.2) g/dL Albumin 2.2 L (3.5-5.0) g/dL Urine Appearance Cloudy H (Clear) Urine Protein 1+ H (Negative) Urine Bilirubin 1+ H (Negative) Ur Leukocyte Esterase Moderate H (Negative) Urine WBC 16 H (0-5) /hpf Ur Squamous Epith Cells 16 H (0-4) /hpf Amorphous Sediment Occasional H (None) /hpf Hyaline Casts 23 H (0-2) /lpf Urine Mucus Many H (None) /hpf Assessment and Plan (1) Lower extremity weakness Status: Acute Code(s): R29.898 - OTH SYMPTOMS AND SIGNS INVOLVING THE MUSCULOSKELETAL SYSTEM (2) Polyneuropathy Status: Chronic Code(s): G62.9 - POLYNEUROPATHY, UNSPECIFIED (3) Elevated liver enzymes Status: Acute Code(s): R74.8 - ABNORMAL LEVELS OF OTHER SERUM ENZYMES Plan: Patient is a 56-year-old woman with history of painful polyneuropathy. She has been having increased weakness over the last several weeks. She had an MRI of the lumbar spine which showed minimal disc herniations and spondylosis. Recommend physical therapy as outpatient. Also recommend Lyme's titer. patient has also had a cervical and thoracic MRI to rule out underlying myelopathy.
[2016-12-20] MEDS: CIPROFLOXACIN HCL 500 MG TAB PO SCH (20:49)
--- NOTE | 2016-12-20 23:12 | MR ---
MRI CERVICAL SPINE: MRI THORACIC SPINE: CLINICAL HISTORY: Weakness per order TECHNIQUE: Multiplanar, multisequence imaging of the cervical and thoracic spine are performed withou t and with IV contrast, 12 cc of gadolinium was given intravenously. COMPARISON: CTA chest June 12, 2016.. FINDINGS: Both exams are suboptimal due to patient motion despite repeated requests to stop moving. E xam is suboptimal due to patient noncooperation per technologist. C-SPINE: Sagittal images of the cervical spine show the craniocervical junction to appear within normal limits . The cervical and upper thoracic spinal cord is normal in course, caliber, and signal. Vertebral a lignment is anatomic. The vertebral body and intravertebral disk heights are normal. Small posterior disc herniation is seen at C6-C7 level on sagittal images. The bone marrow signal intensity is with in normal limits. No significant spurring is present. No suspicious postcontrast enhancement is clear ly seen. Axial images are suboptimal as are degraded by artifact. Suggestion of some uncovertebral facet degen erative changes at C4-C5 and C5-C6 levels. There is probable mild bilateral neural foraminal narrowin g at C4-C5 level and mild to moderate bilateral neural foraminal narrowing at C5-C6 level. Axial imag es in lower cervical levels are nondiagnostic due to patient motion. IMPRESSION: Suboptimal study with facet arthropathy in the mid cervical spine causing bilateral neura l foraminal narrowing and small disc herniation mildly effacing anterior thecal sac at C6-C7 level no rickey. T-SPINE: FINDINGS: Spinal cord shows normal course, caliber, and signal as it courses the thoracic spine. Rodriguez tebral body heights are satisfactory. Slight levoconvex scoliotic curvature in the thoracic spine is present. Slightly more prominent dextroconvex scoliotic curvature in the lumbar spine is noted. Mild exaggerated thoracic kyphosis is noted on sagittal images. This space heights are fairly well-mainta ined. No large posterior disc herniations are seen on sagittal images. There are scattered hemangioma s most prominent at T5, T6, and the anterior T8 vertebral body levels. No significant spurring is see n. No suspicious postcontrast enhancement is identified. Review of the axial images shows no significant spinal canal stenosis or neural foraminal narrowing a t any thoracic level. IMPRESSION: Slight scoliotic curvature and exaggerated thoracic kyphosis with scattered hemangiomas p resent. Spinal canal is fairly well preserved.
[2016-12-21] MEDS ORDERED: PANTOPRAZOLE 40 MG TABLET PO SCH (09:00)
[2016-12-21] MEDS: METOPROLOL SUCCINATE (ER) 50 MG TAB.ER.24H PO SCH (10:17)
[2016-12-21] MEDS: GABAPENTIN 300 MG CAP PO SCH ×2 (10:17→17:45)
[2016-12-21] MEDS: HYDROXYCHLOROQUINE SULFATE 200 MG TAB PO SCH (10:18)
[2016-12-21] MEDS: DULoxetine HCL 60 MG CAPSULE.DR PO SCH (10:18)
[2016-12-21] MEDS: FOLIC ACID 1 MG TAB PO SCH (10:18)
[2016-12-21] MEDS: MULTIVITAMINS, THERA 1 EACH TAB PO SCH (10:18)
[2016-12-21] MEDS: POTASSIUM CHLORIDE ER 20 MEQ TAB.ER PO SCH (10:18)
[2016-12-21] MEDS: predniSONE 5 MG TAB PO SCH (10:18)
[2016-12-21] MEDS: CIPROFLOXACIN HCL 500 MG TAB PO SCH (10:19)
--- NOTE | 2016-12-21 10:22 | P.PN ---
Subjective This is a 56-year-old lady patient of Dr. Bansal. She has underlying history of rheumatoid arthritis, hypertension peripheral neuropathy: Polyps. She follows with Dr. iNdhi encarnacion and Dr. Hernandez. She presented emergency room secondary to weakness for a few days. Patient has had anorexia no abdominal pain no appetite for the past 1 month lost 20 pounds steadily over the past one month. Patient has not had anything to eat except for negligible amount of fluids including pop. She has complained of lower extremity weakness and back pain. Patient does not have any abdominal pain no hematemesis hematochezia or urinary symptoms no headache she has some nausea no vomiting. Patient has difficulty in ambulating secondary to neuropathies in the lower extremities patient has impaired balance in such a way that she has now been using a walker for ambulation In Emergency room initial testing shows hemoglobin of 14.1 and WBC of 5.3 MCV of 103, INR of 1.2, AST ALT elevated at 94 and 85 respectively alkaline phosphatase 210, albumin and protein is low normal thyroid test alcohol is less than 10, MRI of the lumbar spine was requested to evaluate for spinal stenosis, general surgery was requested to evaluate for the ELEVATED alkaline phosphatase as well as the ALT AST, liver ultrasound was requested 12/20: Repeat labs show AST 79, ALT 74, alkaline phosphatase 172. CA 19-9 is 21.4 , TSH 1.730. Urinalysis is cloudy, leukoesterase moderate, WBC 16, squamous cell 16. Ultrasound of the abdomen shows heterogeneity of liver may reflect diffuse fatty infiltration or underlying hepatocellular disease. Biopsy can be performed if desired. 1.3 cm hypoechoic lesion too small to further characterize favored benign. She has been seen in consultation by Dr. Paredes with recommendations for a GI evaluation. He has been seen by Dr. Anju Pacheco from neurology and recommended cervical and thoracic spine MRI Objective - Vital Signs Vital signs: Vital Signs Temp 98.1 F 12/20/16 08:00 Pulse 90 12/20/16 08:00 Resp 18 12/20/16 08:00 BP 135/82 12/20/16 08:00 Pulse Ox 95 12/20/16 08:00 Intake & Output 12/19/16 12/20/16 12/20/16 18:59 06:59 18:59 Intake Total 500 Balance 500 Weight 62.8 kg 62.8 kg Intake: Oral 500 Other: Voiding Method Toilet Toilet Toilet # Voids 3 1 - Exam General appearance: average body habitus, cooperative, no acute distress - EENT Eyes: anicteric sclerae, EOMI, PERRLA, dentition normal, normal appearance ENT: hearing grossly normal, normal oropharynx - Neck Neck: no lymphadenopathy, normal ROM, no other, no rigidity, no stridor, no thyromegaly - Respiratory Respiratory: bilateral: CTA, negative: diminished, dullness, rales, rhonchi - Cardiovascular Rhythm: regular Heart sounds: normal: S1, S2 Abnormal Heart Sounds: no systolic murmur, no diastolic murmur, no rub, no S3 Gallop, no S4 Gallop, no click, no other - Gastrointestinal General gastrointestinal: no absent bowel sounds, no decreased bowel sounds, no distended, no hepatomegaly, no hyperactive bowel sounds, no normal bowel sounds , no organomegaly, no rigid, no scaphoid, soft, no splenomegaly, no tenderness, no umbilical hernia, no ventral hernia - Integumentary Integumentary: normal, normal turgor - Neurologic Neurologic: CNII-XII intact - Musculoskeletal Musculoskeletal: generalized weakness, strength equal bilaterally - Psychiatric Psychiatric: A&O x's 3, appropriate affect, intact judgment & insight - Labs CBC & Chem 7: 12/19/16 11:49 12/20/16 07:44 Labs: Abnormal Lab Results - Last 24 Hours (Table) 12/19/16 12/20/16 Range/Units 18:58 07:44 AST 79 H (14-36) U/L ALT 74 H (9-52) U/L Alkaline Phosphatase 172 H (38-126) U/L Total Protein 5.1 L (6.3-8.2) g/dL Albumin 2.2 L (3.5-5.0) g/dL Urine Appearance Cloudy H (Clear) Urine Protein 1+ H (Negative) Urine Bilirubin 1+ H (Negative) Ur Leukocyte Esterase Moderate H (Negative) Urine WBC 16 H (0-5) /hpf Ur Squamous Epith Cells 16 H (0-4) /hpf Amorphous Sediment Occasional H (None) /hpf Hyaline Casts 23 H (0-2) /lpf Urine Mucus Many H (None) /hpf Assessment and Plan Plan: 1. Generalized weakness with low back pain, lower extremity weakness underlying peripheral neuropathy or spinal stenosis is expected. Patient's to continue on neuropathic pain control to include gabapentin, Cymbalta,, await MRI of the spine patient might need additional treatment including IV Solu- Medrol. Consult was made with Dr. Pacheco neurology 2. Malnutrition secondary to anorexia and diminished oral intake etiology is undetermined however she has underlying colon polyps diagnosed in 2016, as well as elevated liver function tests. Gallbladder pathology needs to be ruled out, continue on PPI treatments she is on chronic prednisone, consult was made with Dr. Paredes for cholestasis against obstructive jaundice, liver ultrasound gallbladder ultrasound was requested. 3. Rheumatoid arthritis on chronic prednisone, Plaquenil, no changes were made 4. Chronic prednisone patient was started on IV Protonix and to be maintained on oral prednisone post discharge 5. Anorexia cause is undetermined at this time gallbladder pathology needs to be ruled out. Patient might need a HIDA scan with CCK if ultrasound was negative 6. Elevated liver function test along with alkaline phosphatase elevation, normal bilirubins at this time. Patient also has chronic alcohol exposure her last alcohol intake was 2 weeks prior to admission. Repeat liver function test normal lipase noted on this current examination, abdominal ultrasound was requested 7. Impaired balance, physical therapy would be following the patient patient might need home therapies currently walker on a community ambulation 8. Chronic alcohol ingestion with ROM, last alcohol intake was 2 weeks prior to admission GI prophylaxis and DVT prophylaxis, early ambulation for caprini score of score of 1 Discharge plan: Return home Impression and plan of care have been directed as dictated by the signing physician. Regla Sandra nurse practitioner acting as scribe for signing physician. Time with Patient: Greater than 30
[2016-12-21] MEDS ORDERED: LACOSAMIDE 50 MG TABLET PO SCH (10:44)
[2016-12-21 12:33] VITALS: BP 113/72; PULSE 87; RESP 16; TEMP 98.1
[2016-12-21] MEDS: THIAMINE 100 MG TAB PO SCH (13:16)
[2016-12-21] MEDS: LACOSAMIDE 50 MG TABLET PO SCH (17:45)
--- NOTE | 2016-12-22 12:43 | P.DS ---
Providers Date of admission: 12/19/16 13:53 Expected date of discharge: 12/21/16 Attending physician: Iram Arthur Consults: 12/19/16 15:18 Consult Physician Routine Consulting Provider: Jonathan Paredes Consult Reason/Comments: elevated lft Do you want consulting provider notified?: Yes [facility] Course: This is a 56-year-old lady patient of Dr. Bansal. She has underlying history of rheumatoid arthritis, hypertension peripheral neuropathy: Polyps. She follows with Dr. Nidhi encarnacion and Dr. Hernandez. She presented emergency room secondary to weakness for a few days. Patient has had anorexia no abdominal pain no appetite for the past 1 month lost 20 pounds steadily over the past one month. Patient has not had anything to eat except for negligible amount of fluids including pop. She has complained of lower extremity weakness and back pain. Patient does not have any abdominal pain no hematemesis hematochezia or urinary symptoms no headache she has some nausea no vomiting. Patient has difficulty in ambulating secondary to neuropathies in the lower extremities patient has impaired balance in such a way that she has now been using a walker for ambulation In Emergency room initial testing shows hemoglobin of 14.1 and WBC of 5.3 MCV of 103, INR of 1.2, AST ALT elevated at 94 and 85 respectively alkaline phosphatase 210, albumin and protein is low normal thyroid test, alcohol is less than 10, MRI of the lumbar spine was requested to evaluate for spinal stenosis, general surgery was requested to evaluate for the ELEVATED alkaline phosphatase as well as the ALT AST, liver ultrasound was requested 12/20: Repeat labs show AST 79, ALT 74, alkaline phosphatase 172. CA 19-9 is 21.4 , TSH 1.730. Urinalysis is cloudy, leukoesterase moderate, WBC 16, squamous cell 16. Ultrasound of the abdomen shows heterogeneity of liver may reflect diffuse fatty infiltration or underlying hepatocellular disease. Biopsy can be performed if desired. 1.3 cm hypoechoic lesion too small to further characterize favored benign. She has been seen in consultation by Dr. Paredes with recommendations for a GI evaluation. He has been seen by Dr. Anju Pacheco from neurology and recommended cervical and thoracic spine MRI 12/21: MRI of the cervical spine was suboptimal study with facet arthropathy in the mid cervical spine causing bilateral neural foraminal narrowing and small disc herniation mildly effacing anterior thecal sac at C6-C7. MRI of the thoracic spine showed slight scoliotic curvature and exaggerated thoracic kyphosis with scattered hemangiomas present. Dr. Pacheco has recommended outpatient therapy and Lyme's titer which was normal. Prior to her discharge sed rate was 7. Protein Electrophoresis was ordered as well which result is pending. Patient will be discharged home today in stable condition. Discharge diagnoses: 1. Generalized weakness with low back pain, lower extremity weakness underlying peripheral neuropathy due to foraminal narrowing and disc herniation C6-C7 and lumbar spinal stenosis and small posterior central disc herniations. 2. We are protein calorie malnutrition secondary to anorexia and diminished oral intake etiology is undetermined 3. Rheumatoid arthritis on chronic prednisone, Plaquenil 4. Chronic prednisone 5. Anorexia cause is undetermined 6. Elevated liver function test due to chronic alcohol exposure with fatty liver 7. Impaired balance 8. Chronic alcohol ingestion with ROM Discharge plan: Return home Impression and plan of care have been directed as dictated by the signing physician. Regla Sandra nurse practitioner acting as scribe for signing physician. CC: Dr. Mae. Patient Condition at Discharge: Good Plan - Discharge Summary New Discharge Prescriptions: Ciprofloxacin HCl [Cipro] 500 mg PO BID #14 tab Discharge Medication List Folic Acid 1 mg PO DAILY 02/06/16 [History] Omeprazole [PriLOSEC] 20 mg PO DAILY PRN 02/06/16 [History] Hydroxychloroquine Sulfate [Plaquenil] 200 mg PO DAILY 06/12/16 [History] Metoprolol Succinate (ER) [Toprol Xl] 50 mg PO DAILY 06/13/16 [History] Potassium Chloride ER [K-Dur 20] 20 meq PO DAILY 06/13/16 [History] predniSONE [Prednisone] 5 mg PO DAILY 06/13/16 [History] ALPRAZolam [Xanax] 0.5 mg PO DAILY PRN 12/19/16 [History] DULoxetine HCL [Cymbalta] 60 mg PO DAILY 12/19/16 [History] Gabapentin 600 mg PO TID 12/19/16 [History] Lacosamide [Vimpat] 50 mg PO DAILY 12/19/16 [History] Multivitamins, Thera [Multivitamin] 1 tab PO DAILY 12/19/16 [History] Ciprofloxacin HCl [Cipro] 500 mg PO BID #14 tab 12/21/16 [Rx] Thiamine [Vitamin B-1] 100 mg PO BID@1200,1700 tab 12/21/16 [Rx] Follow up Appointment(s)/Referral(s): Noa Mae MD [Primary Care Provider] - 1 Week Patient Instructions/Handouts: Weakness (GEN) Activity/Diet/Wound Care/Special Instructions: No Alcohol intake. Ensure twice daily at home. Discharge Disposition: HOME WITH HOME HEALTH SERVICES
== END 2016-12-21 16:20 | disposition home health service (06) ==
LOC: EC 11:11 → 3OBS 13:53
PROVIDERS: ADMIT Family Medicine; ATTEND Family Medicine
DX: G62.9 Polyneuropathy, unspecified (principal); M48.06 Spinal stenosis, lumbar region; M50.223 Other cervical disc displacement at C6-C7 level; E46 Unspecified protein-calorie malnutrition; M54.5 Low back pain; M06.9 Rheumatoid arthritis, unspecified; Z79.52 Long term (current) use of systemic steroids; K76.0 Fatty (change of) liver, not elsewhere classified; R79.89 Other specified abnormal findings of blood chemistry; F17.200 Nicotine dependence, unspecified, uncomplicated; F32.9 Major depressive disorder, single episode, unspecified; I10 Essential (primary) hypertension; I73.00 Raynaud's syndrome without gangrene; L80 Vitiligo; M47.9 Spondylosis, unspecified; Z79.899 Other long term (current) drug therapy
CPT/HCPCS: 96361 ×3; 99285 ×2; 96374; 36415; 94760; 93005; 97162; 97165; 86618; 84439; 84481; 80053 ×2; 85652; 82330; 82550; 82553; 83735; 84100; 84443; 84484; 85025; 85610; 85730; 81001; 84165; 86301; 80320; 71020; 76705; 70450; 72148; 72156; 72157; G0378 ×3; A9577; J7512 ×2; C9113

== ENCOUNTER → 2017-05-22 | Outpatient (CLI) | payer OTHER ==
--- NOTE | 2017-05-22 21:34 | CT ---
EXAMINATION TYPE: CT chest w con DATE OF EXAM: 05/22/2017 COMPARISON: 02/06/2016 HISTORY: 56-year-old female follow-up right lung nodules, tobacco use. TECHNIQUE: Contiguous axial scanning of the chest after the administration of 100 mL of Omnipaque 300 . Coronal/sagittal reconstructions performed. CT DLP: 520mGycm. Automatic exposure control utilized for a dose reduction. FINDINGS: Mild diffuse anasarca-type change. The heart is borderline enlarged without pericardial effusion. Aorta is normal caliber with conventional arch vessel branching anatomy. Some prominent mediastinal lymph nodes measure up to 9 mm in the right paratracheal region and 9 mm i n the left axilla as well. No thoracic lymphadenopathy by CT size criteria. Within the upper abdomen, a few scattered hypodense lesions are present measuring up to 2.5 cm. These are essentially apparent on the prior 02/06/2016 CT suggesting a benign etiology such as hemangiomas. Nonobstructive 3 mm right midpole renal calculus. Evaluation of the lungs shows mild diffuse bronchial wall thickening. There appears to be some periph eral interstitial thickening, possible centrilobular nodules that appear upper lung predominant. A couple 3 mm peripheral pulmonary nodules are present on the right within the upper lobe, axial imag e 17 and 23. Not clearly seen previously. No consolidation or pleural effusion. Bones: Diffuse osteopenia. There has been interval reverse right total shoulder arthroplasty. There are numerous bilateral rib fracture deformities at multiple levels some of which new from 02/06/2016. No clearly acute rib fractures seen. IMPRESSION: 1. Jjia-[id number] diffuse bronchial wall thickening suggests bronchitis or chronic asthma. 2. Peripheral interstitial changes, possible subtle upper lung predominant centrilobular nodules. Fin dings may be seen with subacute hypersensitivity pneumonitis and respiratory bronchiolitis. Clinicall y correlate. 3. A couple 3 mm right-sided pulmonary nodules are seen. Follow-up CT in 12 months can be considered. 4. Numerous bilateral rib fracture deformities at multiple levels, some of which are new from 02/06/20 16. Correlate with patient's trauma history.
== END | disposition home or self-care (01) ==
LOC: RADCTMAIN 17:15
PROVIDERS: ATTEND Family Medicine
DX: S22.43XA Multiple fractures of ribs, bilateral, initial encounter for closed fracture (principal); J98.4 Other disorders of lung; F17.200 Nicotine dependence, unspecified, uncomplicated; R91.8 Other nonspecific abnormal finding of lung field
CPT/HCPCS: 71260; Q9967

== ENCOUNTER 2017-07-04 08:17 | Emergency (ER) | payer OTHER ==
[2017-07-04] MEDS ORDERED: SODIUM CHLORIDE 0.9% 1,000 ML IV ONE (09:02)
[2017-07-04] MEDS ORDERED: SODIUM CHLORIDE 0.9% 1,000 ML IV SCH (09:15)
[2017-07-04 09:27] LABS: Basophils % (A) 0 %; CH 30.8; CHCM 32.1; Eosinophils # (A) 0.1 k/uL (0-0.7); Eosinophils % (A) 1 %; HCT 43.2 % (34.0-46.0); HDW 2.48; HGB 14.1 gm/dL (11.4-16.0); Luc # (Auto) 0.13; Luc % (Auto) 1; Lymphocytes # (A) 1.1 k/uL (1.0-4.8); Lymphocytes % (A) 8 %; MCH 31.5 pg (25.0-35.0); MCHC 32.6 g/dL (31.0-37.0); MCV 96.5 fL (80.0-100.0); Mean Platelet Volume 6.9; Monocytes # (A) 0.6 k/uL (0-1.0); Monocytes % (A) 4 %; Neutrophils % (A) 85 %; RBC 4.48 m/uL (3.80-5.40); RDW 14.3 % (11.5-15.5)
[2017-07-04 09:38] LABS: Anion Gap 7 mmol/L; Blood Urea Nitrogen 15 mg/dL (7-17); Calcium 9.4 mg/dL (8.4-10.2); Carbon Dioxide 26 mmol/L (22-30); Chloride 107 mmol/L (98-107); Glucose 105 mg/dL (74-99); Non-African American GFR(MDRD) >60 (>60 ml/min/1.73 sqM); Sodium 140 mmol/L (137-145)
--- NOTE | 2017-07-04 09:45 | XR ---
EXAMINATION TYPE: XR ankle complete RT, XR foot complete RT DATE OF EXAM: 07/04/2017 COMPARISON: NONE HISTORY: Pain TECHNIQUE: Frontal, lateral and oblique images of the right ankle are obtained. COMPARISON: None. FINDINGS: There is displaced trimalleolar fracture with lateral, medial and posterior malleolar compo nents. There is soft tissue deformity and edema noted. Ankle mortise instability identified. IMPRESSION: Trimalleolar fracture of the ankle with the instability noted about the ankle mortise. ICD 10 closed FRACTURE, INITIAL EVALUATION EXAMINATION TYPE: XR ankle complete RT, XR foot complete RT DATE OF EXAM: 07/04/2017 CLINICAL HISTORY: pain TECHNIQUE: Frontal, lateral and oblique images of the right foot are obtained. COMPARISON: None. FINDINGS: There is no acute fracture/dislocation evident. The joint spaces appear within normal corrales its. The overlying soft tissue appears unremarkable. IMPRESSION: There is no acute fracture or dislocation of the right foot.
--- NOTE | 2017-07-04 09:56 | ED ---
Lower Extremity Injury HPI - General Chief Complaint: Extremity Injury, Lower Stated Complaint: rt ankle pain Time Seen by Provider: 07/04/17 08:31 Source: patient, RN notes reviewed, old records reviewed Mode of arrival: wheelchair Limitations: no limitations - History of Present Illness Initial Comments: This is a 36-year-old female presenting to the emergency department with HER-2 daughters chief complaint of right ankle pain and swelling for the past week. Patient reports that she noticed on Monday that she started to have a deformity of her ankle. She does not recall any injury to cause this deformity. She states she saw her enameler, she has a history of rheumatoid arthritis yesterday. They took an x-ray but did not tell her any results. Patient was then sent this morning for a Doppler ultrasound, which she was told was negative. After the ultrasound she came to the emergency department for further evaluation because she's been having difficulty bearing weight over her foot and ankle. Patient reports that she's noticed a pressure ulcer started to form under her heel of her foot. She does have a history of neuropathy patient states that she does not have any specific pain in the foot but is all over the lateral and medial aspect of the ankle. Patient does have a history of alcohol use, but states states that she has not been drinking heavily. Patient reports that she is not in any specific pain at this time, only when she bears weight on it. She reports that her orthopedic in the past with Dr. Lauren. - Related Data Home Medications Medication Instructions Recorded Confirmed Folic Acid 1 mg PO DAILY 02/06/16 07/04/17 Omeprazole [PriLOSEC] 20 mg PO DAILY PRN 02/06/16 07/04/17 Hydroxychloroquine Sulfate 200 mg PO DAILY 06/12/16 07/04/17 [Plaquenil] Metoprolol Succinate (ER) [Toprol 50 mg PO DAILY 06/13/16 07/04/17 Xl] Potassium Chloride ER [K-Dur 20] 20 meq PO DAILY 06/13/16 07/04/17 ALPRAZolam [Xanax] 0.5 mg PO DAILY PRN 12/19/16 07/04/17 DULoxetine HCL [Cymbalta] 60 mg PO DAILY 12/19/16 07/04/17 Gabapentin 600 mg PO TID 12/19/16 07/04/17 Lacosamide [Vimpat] 50 mg PO DAILY 12/19/16 07/04/17 Multivitamins, Thera [Multivitamin] 1 tab PO DAILY 12/19/16 07/04/17 Ibuprofen [Motrin] 600 mg PO Q8HR PRN 07/04/17 07/04/17 Previous Rx's Medication Instructions Recorded Thiamine [Vitamin B-1] 100 mg PO BID@1200,1700 tab 12/21/16 Cephalexin [Keflex] 500 mg PO Q6HR #40 cap 07/04/17 HYDROcodone/APAP 10-325MG [[place] 1 tab PO Q6H PRN #20 tab 07/04/17 10-325] Allergies Allergy/AdvReac Type Severity Reaction Status Date / Time No Known Allergies Allergy Verified 12/19/16 11:55 Review of Systems ROS Statement: Those systems with pertinent positive or pertinent negative responses have been documented in the HPI. ROS Other: All systems not noted in ROS Statement are negative. Past Medical History Past Medical History: Hypertension, Osteoarthritis (OA), Rheumatoid Arthritis ( RA) Additional Past Medical History / Comment(s): neuropathy Vitiligo, Raynaud's peripheral neuropathy. History of Any Multi-Drug Resistant Organisms: MRSA Date of last positivie culture/infection: 06/11/12 MDRO Source:: Unknown Past Surgical History: Appendectomy, Section, Joint Replacement, Orthopedic Surgery, Tonsillectomy, Tubal Ligation Additional Past Surgical History / Comment(s): right shoulder replacement Past Anesthesia/Blood Transfusion Reactions: No Reported Reaction Past Psychological History: Depression Smoking Status: Current every day smoker Past Alcohol Use History: Daily Past Drug Use History: None Reported - Past Family History Mother Family Medical History: No Reported History, Diabetes Mellitus, Hyperlipidemia, Hypertension Father Family Medical History: Diabetes Mellitus, Hypertension Sister(s) Family Medical History: No Reported History Son(s) Family Medical History: No Reported History General Exam - General Exam Comments Initial Comments: This is a 56-year-old female. Patient does not appear to be in any acute distress. Limitations: no limitations General appearance: alert, in no apparent distress Head exam: Present: atraumatic, normocephalic, normal inspection Eye exam: Present: normal appearance, PERRL, EOMI. Absent: scleral icterus, conjunctival injection, periorbital swelling ENT exam: Present: normal exam, mucous membranes moist Neck exam: Present: normal inspection. Absent: tenderness, meningismus, lymphadenopathy Respiratory exam: Present: normal lung sounds bilaterally. Absent: respiratory distress, wheezes, rales, rhonchi, stridor Cardiovascular Exam: Present: regular rate, normal rhythm, normal heart sounds. Absent: systolic murmur, diastolic murmur, rubs, gallop, clicks GI/Abdominal exam: Present: soft, normal bowel sounds. Absent: distended, tenderness, guarding, rebound, rigid Right Lower Leg exam: Present: normal inspection, full ROM Ankle exam: Present: tenderness, swelling, deformity (Has obvious deformity of the ankle. Patient is tender over the lateral and medial malleolus.). Absent: normal inspection, full ROM Foot/Toe exam: Present: tenderness, swelling, erythema (Has erythema and blistering over the posterior heel. Evidence of ecchymosis over the medial plantar aspect of the foot and heel.). Absent: full ROM Neurovascular tendon exam: Present: no vascular compromise (Patient has a significant swelling over the top of foot. I was able to palpate a pulse and Doppler of her son felt the of the dorsalis pedis.) Gait: unable to bear weight Back exam: Present: normal inspection Neurological exam: Present: alert, oriented X3, CN II-XII intact Psychiatric exam: Present: normal affect, normal mood Course Vital Signs 07/04/17 08:18 Temperature 98.0 F Pulse Rate 79 Respiratory 17 Rate Blood Pressure 156/73 O2 Sat by Pulse 99 Oximetry Procedures - Orthopedic Fracture Reduction Fracture #1 Side: right Fracture Reduction Location: tibia, fibula (Right ankle trimalleolar fracture.) Analgesia: none Technique: direct manipulation Post Reduction X-rays Demonstrate: other (Patient's fibula appearsHowever the medial malleolus and still displaced. Discussed this with Dr. Davis and he states that this is acceptable and we will have the patient seen by orthopedics. ) Post-Reduction Neuro Exam: intact Post-Reduction Vascular Exam: intact Splint Applied: Yes Patient Tolerated Procedure: well Medical Decision Making - Medical Decision Making Is a 56-year-old female chief complaint of right ankle and foot pain. Patient has an obvious deformity of the right ankle. X-rays were reviewed and show trimalleolar fracture. Discussed case with Dr. Davis. He'll be calling orthopedic physician. She also has evidence of blistering and pressure ulcers over bilateral heels. Patient received IV fluids, blood culture obtained CBC. CBC is mildly elevated at 14. I did talk to the orthopedic physician marketing administrative assistant, Katia Quinonez. She recommended that I try to reduce the ankle and splinted and have her follow-up with Dr. Calderon. Given the fact the patient was in no pain and resting comfortably we did attempt to reduce the ankle without anesthesia. Patient tolerated the procedure well. I was able to apply the splint and somewhat reduce it however the ankle is very unstable. Discussed this case with Dr. Davis. He recommends putting the patient on antibiotics due to the pressure ulcer on the heel, this was covered with ABD pads prior to splinting. I also have the patient follow-up with orthopedics. This is not an acceptable reduction at this time. will be given a course of pain medication, antibiotics. - Lab Data Result diagrams: 07/04/17 09:18 07/04/17 09:18 Lab Results 07/04/17 07/04/17 Range/Units 09:18 09:18 WBC 14.0 H (3.8-10.6) k/uL RBC 4.48 (3.80-5.40) m/uL Hgb 14.1 (11.4-16.0) gm/dL Hct 43.2 (34.0-46.0) % MCV 96.5 (80.0-100.0) fL MCH 31.5 (25.0-35.0) pg MCHC 32.6 (31.0-37.0) g/dL RDW 14.3 (11.5-15.5) % Plt Count 227 (150-450) k/uL Neutrophils % 85 % Lymphocytes % 8 % Monocytes % 4 % Eosinophils % 1 % Basophils % 0 % Neutrophils # 12.0 H (1.3-7.7) k/uL Lymphocytes # 1.1 (1.0-4.8) k/uL Monocytes # 0.6 (0-1.0) k/uL Eosinophils # 0.1 (0-0.7) k/uL Basophils # 0.0 (0-0.2) k/uL Sodium 140 (137-145) mmol/L Potassium 4.0 (3.5-5.1) mmol/L Chloride 107 (98-107) mmol/L Carbon Dioxide 26 (22-30) mmol/L Anion Gap 7 mmol/L BUN 15 (7-17) mg/dL Creatinine 0.70 (0.52-1.04) mg/dL Est GFR (MDRD) Af Amer >60 (>60 ml/min/1.73 sqM) Est GFR (MDRD) Non-Af >60 (>60 ml/min/1.73 sqM) Glucose 105 H (74-99) mg/dL Calcium 9.4 (8.4-10.2) mg/dL - Radiology Data Radiology results: report reviewed Trimalleolar fracture of the ankle with instability noted at the ankle more T' s. There is no acute fracture dislocation of the right foot. Disposition Clinical Impression: Trimalleolar fracture of right ankle Disposition: HOME SELF-CARE Condition: Good Additional Instructions: Patient is a follow-up with Dr. Calderon as soon as possible. Return to the emergency department if any alarming signs or symptoms occur. Prescriptions: Cephalexin [Keflex] 500 mg PO Q6HR #40 cap HYDROcodone/APAP 10-325MG [[place] 10-325] 1 tab PO Q6H PRN #20 tab PRN Reason: Pain Referrals: Noa Mae MD [Primary Care Provider] - 1-2 days Chano Calderon MD [Medical Doctor] - 1-2 days Time of Disposition: 11:31
[2017-07-04 11:49] VITALS: BP 157/72; PULSE 75; RESP 18; TEMP 98.2
--- NOTE | 2017-07-04 11:49 | XR ---
EXAMINATION TYPE: XR ankle limited RT DATE OF EXAM: 07/04/2017 COMPARISON: July 04, 2017 HISTORY: Post reduction right ankle TECHNIQUE: AP and lateral postreduction views right ankle FINDINGS: Interval placement of overlying cast material. No significant change in alignment is apprec iated at this time. Previously described fractures as noted. IMPRESSION: No significant change in alignment is appreciated at this time.
== END 2017-07-04 11:57 | disposition home or self-care (01) ==
LOC: EC 08:17
DX: S82.851A Displaced trimalleolar fracture of right lower leg, initial encounter for closed fracture (principal); I10 Essential (primary) hypertension; M19.90 Unspecified osteoarthritis, unspecified site; M06.9 Rheumatoid arthritis, unspecified; F32.9 Major depressive disorder, single episode, unspecified; F17.200 Nicotine dependence, unspecified, uncomplicated; Z79.899 Other long term (current) drug therapy; X58.XXXA Exposure to other specified factors, initial encounter
CPT/HCPCS: 27818; 36415; 80048; 85025; 96360; 99284

== ENCOUNTER → 2017-07-04 | Outpatient (CLI) | payer OTHER ==
--- NOTE | 2017-07-04 08:45 | US ---
EXAMINATION TYPE: US venous doppler duplex LE RT DATE OF EXAM: 07/04/2017 8:11 AM COMPARISON: NONE CLINICAL HISTORY: M25.471 SWELLING OF RT ANKLE JOINT. SIDE PERFORMED: Right TECHNIQUE: The lower extremity deep venous system is examined utilizing real time linear array sonog lisandra with graded compression, doppler sonography and color-flow sonography. VESSELS IMAGED: External Iliac Vein (EIV) Common Femoral Vein Deep Femoral Vein Greater Saphenous Vein * Femoral Vein Popliteal Vein Small Saphenous Vein * Proximal Calf Veins (* superficial vessels) Grayscale, color doppler, spectral doppler imaging performed of the deep veins of the lower extremity . There is normal flow, compressibility, vascular waveforms. Right Leg: Negative for DVT Superficial edema noted at ankle. IMPRESSION: No evidence for DVT
== END | disposition home or self-care (01) ==
LOC: RADUSWWP 07:44
PROVIDERS: ATTEND Internal Medicine Rheumatology
DX: M25.471 Effusion, right ankle (principal)

== ENCOUNTER 2017-08-07 16:52 | Inpatient (IN) | payer OTHER ==
[2017-08-07] MEDS ORDERED: MORPHINE SULFATE 4 MG/ML SYRINGE IV STA (18:30)
[2017-08-07] MEDS ORDERED: VANCOMYCIN 1,500 MG in SODIUM CHLORIDE 0.9% 250 ML IVPB STA (18:38)
--- NOTE | 2017-08-07 18:38 | ED ---
Skin/Abscess/FB HPI - General Chief complaint: Skin/Abscess/Foreign Body Stated complaint: Ankle Pain-Sent by OA Time Seen by Provider: 08/07/17 18:23 Source: patient Mode of arrival: wheelchair Limitations: no limitations - History of Present Illness Initial comments: Patient complains of infection in her right ankle. She had a surgery there. She has no belly pain or back pain. She has no chest pain. She has no shortness of breath. She has no palpitations. She has no calf pain or swelling. Nothing makes the discomfort in her ankle better or worse. She has taken pain medication prior to arrival. She denies any new injuries. She just saw her orthopedic surgeon. He informed the patient that she will likely need intravenous antibiotics. - Related Data Home Medications Medication Instructions Recorded Confirmed Folic Acid 1 mg PO DAILY 02/06/16 07/04/17 Omeprazole [PriLOSEC] 20 mg PO DAILY PRN 02/06/16 07/04/17 Hydroxychloroquine Sulfate 200 mg PO DAILY 06/12/16 07/04/17 [Plaquenil] Metoprolol Succinate (ER) [Toprol 50 mg PO DAILY 06/13/16 07/04/17 Xl] Potassium Chloride ER [K-Dur 20] 20 meq PO DAILY 06/13/16 07/04/17 ALPRAZolam [Xanax] 0.5 mg PO DAILY PRN 12/19/16 07/04/17 DULoxetine HCL [Cymbalta] 60 mg PO DAILY 12/19/16 07/04/17 Gabapentin 600 mg PO TID 12/19/16 07/04/17 Lacosamide [Vimpat] 50 mg PO DAILY 12/19/16 07/04/17 Multivitamins, Thera [Multivitamin] 1 tab PO DAILY 12/19/16 07/04/17 Ibuprofen [Motrin] 600 mg PO Q8HR PRN 07/04/17 07/04/17 Previous Rx's Medication Instructions Recorded Thiamine [Vitamin B-1] 100 mg PO BID@1200,1700 tab 12/21/16 Cephalexin [Keflex] 500 mg PO Q6HR #40 cap 07/04/17 HYDROcodone/APAP 10-325MG [[place] 1 tab PO Q6H PRN #20 tab 07/04/17 10-325] Allergies Allergy/AdvReac Type Severity Reaction Status Date / Time No Known Allergies Allergy Verified 12/19/16 11:55 Review of Systems ROS Statement: Those systems with pertinent positive or pertinent negative responses have been documented in the HPI. ROS Other: All systems not noted in ROS Statement are negative. Past Medical History Past Medical History: Hypertension, Osteoarthritis (OA), Rheumatoid Arthritis ( RA) Additional Past Medical History / Comment(s): neuropathy Vitiligo, Raynaud's peripheral neuropathy. History of Any Multi-Drug Resistant Organisms: MRSA Date of last positivie culture/infection: 06/11/12 MDRO Source:: Unknown Past Surgical History: Appendectomy, Section, Joint Replacement, Orthopedic Surgery, Tonsillectomy, Tubal Ligation Additional Past Surgical History / Comment(s): right shoulder replacement Past Anesthesia/Blood Transfusion Reactions: No Reported Reaction Past Psychological History: Depression Smoking Status: Current every day smoker Past Alcohol Use History: Occasional Past Drug Use History: None Reported - Past Family History Mother Family Medical History: No Reported History, Diabetes Mellitus, Hyperlipidemia, Hypertension Father Family Medical History: Diabetes Mellitus, Hypertension Sister(s) Family Medical History: No Reported History Son(s) Family Medical History: No Reported History General Exam Limitations: no limitations General appearance: alert, in no apparent distress Head exam: Present: atraumatic, normocephalic, normal inspection Eye exam: Present: normal appearance, PERRL, EOMI. Absent: scleral icterus, conjunctival injection, periorbital swelling ENT exam: Present: normal exam, mucous membranes moist Neck exam: Present: normal inspection. Absent: tenderness, meningismus, lymphadenopathy Respiratory exam: Present: normal lung sounds bilaterally. Absent: respiratory distress, wheezes, rales, rhonchi, stridor Cardiovascular Exam: Present: regular rate, normal rhythm, normal heart sounds. Absent: systolic murmur, diastolic murmur, rubs, gallop, clicks GI/Abdominal exam: Present: soft, normal bowel sounds. Absent: distended, tenderness, guarding, rebound, rigid Extremities exam: Present: normal inspection, full ROM, normal capillary refill. Absent: tenderness, pedal edema, joint swelling, calf tenderness Back exam: Present: normal inspection Neurological exam: Present: alert, oriented X3, CN II-XII intact Psychiatric exam: Present: normal affect, normal mood Skin exam: Present: warm, other (Significant for erythema and discharge from the right ankle) Course Vital Signs 08/07/17 18:15 Temperature 99.9 F H Pulse Rate 95 Respiratory 18 Rate Blood Pressure 107/61 O2 Sat by Pulse 96 Oximetry Medical Decision Making - Medical Decision Making Patient presents not feeling well. She has had some fevers and chills. She has purulent drainage from the right ankle. She was sent in by her orthopedic doctor. I sent blood cultures. I started her on IV antibiotics. She will be admitted to the hospital. Disposition Clinical Impression: Cellulitis and abscess of right leg Disposition: ADMITTED IP TO THIS HOSP Condition: Fair Referrals: Noa Mae MD [Primary Care Provider] - 1-2 days Time of Disposition: 18:38
[2017-08-07] MEDS ORDERED: VANCOMYCIN IV PER PHARMACY 1 EACH MISC MISCELLANE PRN ×3 (18:39→18:41)
[2017-08-07] MEDS ORDERED: ONDANSETRON 4 MG/2 ML VIAL IVP PRN (18:39)
[2017-08-07] MEDS ORDERED: NALOXONE 0.4 MG/ML 1 ML VIAL IV PRN (18:39)
[2017-08-07 18:52] LABS: Anisocytosis Slight; Basophils # (A) 0.1 k/uL (0-0.2); Basophils % (A) 0 %; CH 31.9; Eosinophils # (A) 0.2 k/uL (0-0.7); Eosinophils % (A) 1 %; HDW 2.63; HGB 13.5 gm/dL (11.4-16.0); Luc % (Auto) 1; Lymphocytes # (A) 1.5 k/uL (1.0-4.8); Lymphocytes % (A) 9 %; MCH 30.9 pg (25.0-35.0); MCHC 30.8 g/dL (31.0-37.0); MCV 100.2 fL (80.0-100.0); Macrocytosis Slight; Mean Platelet Volume 7.4; Monocytes # (A) 0.6 k/uL (0-1.0); Monocytes % (A) 4 %; Neutrophils # (A) 13.8 k/uL (1.3-7.7); Neutrophils % (A) 85 %; RBC 4.39 m/uL (3.80-5.40); RDW 16.1 % (11.5-15.5); WBC 16.3 k/uL (3.8-10.6); WBC (Perox) 16.26
[2017-08-07 19:03] LABS: ALT 31 U/L (9-52); AST 14 U/L (14-36); Alkaline Phosphatase 281 U/L (38-126); Anion Gap 11 mmol/L; Blood Urea Nitrogen 14 mg/dL (7-17); Calcium 9.5 mg/dL (8.4-10.2); Carbon Dioxide 21 mmol/L (22-30); Chloride 107 mmol/L (98-107); Glucose 136 mg/dL (74-99); Non-African American GFR(MDRD) 55 (>60 ml/min/1.73 sqM); Potassium 3.2 mmol/L (3.5-5.1); Sodium 139 mmol/L (137-145); Total Bilirubin 0.6 mg/dL (0.2-1.3); Total Protein 6.3 g/dL (6.3-8.2)
--- NOTE | 2017-08-07 20:14 | XR ---
EXAMINATION TYPE: XR ankle complete RT DATE OF EXAM: 08/07/2017 COMPARISON: 07/04/2017 HISTORY: Follow-up fracture. Open wound. TECHNIQUE: 2 views FINDINGS: There is bimalleolar fracture of the ankle. There is significant medial displacement of the talus. There is amorphous soft tissue calcification at the fracture sites. There is soft tissue calc ification anteriorly consistent with calcification within joint effusion. IMPRESSION: Bimalleolar fracture of the ankle with significant displacement of the talus medially and posteriorly. This has progressed compared to last exam of 07/04/2017. There is probably some destruct ion of the lateral dome of the talus. The possibility of septic arthritis and osteomyelitis cannot be excluded. Significant soft tissue calcification or calcified synovial fluid.
--- NOTE | 2017-08-07 20:45 | P.HPIM ---
History of Present Illness H&P Date: 08/07/17 Chief Complaint: Right ankle pain and swelling referred from orthopedic clinic The patient is a 56-year-old female with a past history of essential hypertension rheumatoid and osteoarthritis with a history of peripheral neuropathy that is referred to the ER after following up with orthopedic clinic today. Apparently the patient was seen here 4 weeks ago after presenting with one-week history of right ankle and foot pain, it appears at that time she was diagnosed with a right trimalleolar fracture that was reduced and splinted in the ER, the patient has been following up with Dr. Calderon and was referred here. On arrival to the ER she was in significant discomfort, the patient reports approximately a three-day history of drainage from the right lateral ankle described as purulent and serosanguineous, the patient denies any right calf pain she denies any chest pain or shortness of breath, sure he denies any subjective fevers chills or night sweats. Labs were done in the ER the patient was noted to have a leukocytosis of 16 and a low-grade temperature T-max 99.9 and was noted to be hypokalemic Review of Systems All other 14 point review of systems negative except per HPI Past Medical History Past Medical History: Hypertension, Osteoarthritis (OA), Rheumatoid Arthritis ( RA) Additional Past Medical History / Comment(s): neuropathy Vitiligo, Raynaud's peripheral neuropathy. History of Any Multi-Drug Resistant Organisms: MRSA Date of last positivie culture/infection: 06/11/12 MDRO Source:: Unknown Past Surgical History: Appendectomy, Section, Joint Replacement, Orthopedic Surgery, Tonsillectomy, Tubal Ligation Additional Past Surgical History / Comment(s): right shoulder replacement Past Anesthesia/Blood Transfusion Reactions: No Reported Reaction Past Psychological History: Depression Smoking Status: Current every day smoker Past Alcohol Use History: Occasional Past Drug Use History: None Reported - Past Family History Mother Family Medical History: No Reported History, Diabetes Mellitus, Hyperlipidemia, Hypertension Father Family Medical History: Diabetes Mellitus, Hypertension Sister(s) Family Medical History: No Reported History Son(s) Family Medical History: No Reported History Medications and Allergies Home Medications Medication Instructions Recorded Confirmed Type Omeprazole [PriLOSEC] 20 mg PO DAILY 02/06/16 08/07/17 History Hydroxychloroquine Sulfate 200 mg PO DAILY 06/12/16 08/07/17 History [Plaquenil] Metoprolol Succinate (ER) [Toprol 50 mg PO DAILY 06/13/16 08/07/17 History Xl] ALPRAZolam [Xanax] 0.5 mg PO DAILY PRN 12/19/16 08/07/17 History DULoxetine HCL [Cymbalta] 60 mg PO DAILY 12/19/16 08/07/17 History Lacosamide [Vimpat] 50 mg PO BID 12/19/16 08/07/17 History Ibuprofen [Motrin] 600 mg PO Q8HR PRN 07/04/17 08/07/17 History Folic Acid 1 mg PO DAILY 08/07/17 08/07/17 History Gabapentin [Neurontin] 300 mg PO TID 08/07/17 08/07/17 History Multivitamins, Thera [Multivitamin 1 tab PO DAILY 08/07/17 08/07/17 History (formulary)] Allergies Allergy/AdvReac Type Severity Reaction Status Date / Time No Known Allergies Allergy Verified 08/07/17 19:01 Physical Exam Vitals: Vital Signs Temp Pulse Resp BP Pulse Ox 08/07/17 20:07 99.2 F 97 18 101/59 96 08/07/17 19:14 78 16 125/73 08/07/17 18:15 99.9 F H 95 18 107/61 96 Intake and Output 08/07/17 08/07/17 08/07/17 06:59 14:59 22:59 Other: Weight 68.039 kg Patient Weight 08/08/17 06:59 Weight 68.039 kg Constitutional: No acute distress, conversant, pleasant Eyes: Anicteric sclerae, moist conjunctiva, no lid-lag, PERRLA ENMT: NC/AT,Oropharynx clear, no erythema, exudates Neck:Supple, FROM, no masses, or JVD, No carotid bruits; No thyromegaly Lungs: Clear to auscultation, Clear to percussion, Normal respiratory effort, no accessory muscle use Cardiovascular: Heart regular in rate and rhythm, No murmurs, gallops, or rubs no peripheral edema Abdominal: Soft Nontender, nom distended, no guarding, no rebound or rigidity, Normoactive bowel sounds No hepatomegaly, No splenomegaly, No palpable mass No abdominal wall hernia noted Skin: Normal temperature, tone, texture, turgor, No induration No subcutaneous nodules, No rash, lesions, No ulcers Extremities:No digital cyanosis No clubbing, Pedal pulses intact and symmetrical Radial pulses intact and symmetrical Normal gait and station, No calf tenderness, right ankle wound with bones protruding to the lateral malleolar area with significant surrounding soft tissue induration with some erythema but some purulent drainage noted, right heel black Eschar, Psychiatric: Alert and oriented to person, place and time, Appropriate affect Intact judgement Neuro: Muscles Strength 5/5 in all 4 extremities, Sensation to light touch grossly present throughout, Cranial nerves II-XII grossly intact. No focal sensory deficits Results CBC & Chem 7: 08/07/17 18:48 08/07/17 18:48 Labs: Abnormal Lab Results - Last 24 Hours (Table) 08/07/17 08/07/17 Range/Units 18:48 18:48 WBC 16.3 H (3.8-10.6) k/uL MCV 100.2 H (80.0-100.0) fL MCHC 30.8 L (31.0-37.0) g/dL RDW 16.1 H (11.5-15.5) % Neutrophils # 13.8 H (1.3-7.7) k/uL Potassium 3.2 L (3.5-5.1) mmol/L Carbon Dioxide 21 L (22-30) mmol/L Creatinine 1.05 H (0.52-1.04) mg/dL Glucose 136 H (74-99) mg/dL Alkaline Phosphatase 281 H (38-126) U/L Albumin 3.4 L (3.5-5.0) g/dL Assessment and Plan (1) Trimalleolar fracture of ankle, open Status: Acute (2) Infected wound Status: Acute (3) Sepsis Status: Acute (4) Hypokalemia Status: Acute Plan: The patient is admitted to the medical surgical floor anticipated greater than 2 midnight stay for a unstable right open displaced bimalleolar ankle fracture with concern for possible septic arthritis and osteomyelitis given the patient' s presentation and history of chronic immunosuppression being on Plaquenil and prednisone therapy to treat her underlying rheumatoid arthritis also concern for underlying possible pathological fracture, wound cultures and blood cultures have been obtained, we'll continue the patient on IV vancomycin will add Zosyn coverage and continue with IV fluid rehydration. Continue with morphine for pain Orthopedic Dr. Bell has been consulted, will order stat right ankle x-rays check a ESR CRP in the morning and order MRI with and without contrast for the right ankle. Replace electrolytes as needed and continue to follow her clinical course The patient placed the patient on DVT prophylaxis and GI prophylaxis
[2017-08-07] MEDS: SODIUM CHLORIDE 0.9% 1,000 ML IV SCH (21:54)
[2017-08-07] MEDS: POTASSIUM CHLORIDE 20 MEQ in WATER FOR INJECTION 1 100ML.BAG IVPB SCH (21:54)
[2017-08-07] MEDS: ENOXAPARIN 40 MG/0.4 ML SYRINGE SQ SCH (21:54)
[2017-08-08] MEDS ORDERED: POTASSIUM CHLORIDE 20 MEQ, LIDOCAINE 2% INJ 20 MG in SODIUM CHLORIDE 0.9% 100 ML IVPB ONE (00:15)
[2017-08-08] MEDS: FAMOTIDINE 20 MG TAB PO SCH ×3 (00:17→20:51)
[2017-08-08] MEDS: GABAPENTIN 300 MG CAP PO SCH ×4 (00:17→20:51)
[2017-08-08] MEDS: PIPERACILLIN-TAZOBACTAM 3.375 GM in DEXTROSE/WATER 1 50ML.BAG IVPB SCH ×2 (00:34→09:15)
[2017-08-08] MEDS: MORPHINE SULFATE 4 MG/ML SYRINGE IV PRN ×2 (00:45→05:39)
[2017-08-08] MEDS: POTASSIUM CHLORIDE 10 MEQ, LIDOCAINE 2% INJ 10 MG in SODIUM CHLORIDE 0.9% 100 ML IVPB SCH ×2 (01:02→02:36)
[2017-08-08] MEDS: POTASSIUM CHLORIDE 20 MEQ in WATER FOR INJECTION 1 100ML.BAG IVPB SCH (01:03)
[2017-08-08] MEDS ORDERED: DIPH,PERTUS(ACELL)TETVAC-LF 0.5 ML VIAL IM ONE (02:01)
[2017-08-08] MEDS: VANCOMYCIN 1,250 MG in SODIUM CHLORIDE 0.9% 250 ML IVPB SCH ×2 (05:37→19:08)
[2017-08-08 08:10] LABS: Anisocytosis Slight; Basophils # (A) 0.1 k/uL (0-0.2); Basophils % (A) 1 %; CH 31.7; CHCM 30.9; Eosinophils # (A) 0.1 k/uL (0-0.7); Eosinophils % (A) 1 %; HCT 39.5 % (34.0-46.0); HDW 2.63; HGB 12.1 gm/dL (11.4-16.0); Hypochromasia Slight; Luc # (Auto) 0.12; Luc % (Auto) 1; Lymphocytes # (A) 0.9 k/uL (1.0-4.8); Lymphocytes % (A) 8 %; MCH 31.5 pg (25.0-35.0); MCHC 30.5 g/dL (31.0-37.0); MCV 103.1 fL (80.0-100.0); Macrocytosis Moderate; Mean Platelet Volume 7.6; Monocytes # (A) 0.4 k/uL (0-1.0); Monocytes % (A) 4 %; Neutrophils # (A) 9.1 k/uL (1.3-7.7); Neutrophils % (A) 86 %; RBC 3.83 m/uL (3.80-5.40); RDW 16.2 % (11.5-15.5); WBC 10.6 k/uL (3.8-10.6); WBC (Perox) 11.61
[2017-08-08 08:11] LABS: ALT 27 U/L (9-52); AST 12 U/L (14-36); Alkaline Phosphatase 212 U/L (38-126); Anion Gap 8 mmol/L; Blood Urea Nitrogen 16 mg/dL (7-17); Calcium 8.7 mg/dL (8.4-10.2); Carbon Dioxide 18 mmol/L (22-30); Chloride 113 mmol/L (98-107); Glucose 140 mg/dL (74-99); Non-African American GFR(MDRD) 51 (>60 ml/min/1.73 sqM); Potassium 3.8 mmol/L (3.5-5.1); Sodium 139 mmol/L (137-145); Total Bilirubin 0.5 mg/dL (0.2-1.3); Total Protein 5.2 g/dL (6.3-8.2)
[2017-08-08] MEDS: ENOXAPARIN 40 MG/0.4 ML SYRINGE SQ SCH (09:15)
[2017-08-08] MEDS: THIAMINE 100 MG TAB PO SCH ×2 (09:16→23:18)
[2017-08-08] MEDS: DULoxetine HCL 60 MG CAPSULE.DR PO SCH (09:17)
[2017-08-08] MEDS: HYDROXYCHLOROQUINE SULFATE 200 MG TAB PO SCH (09:23)
[2017-08-08] MEDS: METOPROLOL SUCCINATE (ER) 50 MG TAB.ER.24H PO SCH (09:24)
[2017-08-08] MEDS: LACOSAMIDE 50 MG TABLET PO SCH (09:24)
[2017-08-08] MEDS ORDERED: ALBUTEROL NEBULIZED 2.5 MG/3 ML INHALATION PRN (09:31)
--- NOTE | 2017-08-08 09:32 | P.PN ---
Subjective Principal diagnosis: right foot wound Patient is a 56-year-old female with history of neuropathy, rheumatoid arthritis who was taken off steroids approximately one week ago, hypertension, and tobacco abuse who presented at the direction of the physician financial legal assistant from her orthopedic office due to drainage on the right lateral malleoli. In the emergency department she underwent an extensive evaluation. She was found to have a right ankle wound with surrounding cellulitis and sepsis. She was started on Vanco, Zosyn, and IV fluids. She was admitted to the general medical floor for further monitoring and care. Patient seen and examined at bedside. She denies any pain in her ankle secondary to her neuropathy. She denies any lightheadedness, dizziness, shortness of breath, or diarrhea. She was taking prednisone 20 mg for the last approximately one year secondary to her rheumatoid arthritis. She began weaning 3 weeks ago was taken off approximately 1 week ago. She is now taking Plaquenil only. Objective - Vital Signs Vital signs: Vital Signs Temp 98.2 F 08/08/17 07:00 Pulse 101 H 08/08/17 09:30 Resp 16 08/08/17 07:00 BP 83/55 08/08/17 09:30 Pulse Ox 95 08/08/17 09:30 Intake & Output 08/07/17 08/08/17 08/08/17 18:59 06:59 18:59 Intake Total 1525 Balance 1525 Weight 68.039 kg Intake: Intake, IV Titration 625 Amount Piperacillin-Tazobactam 3 50 .375 gm In Dextrose/Water 1 50ml.bag @ 12.5 mls/hr IVPB Q8HR R[facility] Rx#: [id number] Potassium Chloride 10 meq 200 Lidocaine 2% Inj 10 mg In Sodium Chloride 0.9% 100 ml @ 100 mls/hr IVPB Q1HR RUB[facility] Rx#:[id number] Potassium Chloride 20 meq 50 In Water For Injection 1 100ml.bag @ 50 mls/hr IVPB Q2H [facility] Rx#: [id number] Sodium Chloride 0.9% 1, 200 000 ml @ 100 mls/hr IV . Q10H [facility] Rx#:[id number] Vancomycin 1,500 mg In 125 Sodium Chloride 0.9% 250 ml @ 125 mls/hr IVPB ONCE STA Rx#:[id number] Oral 900 Other: # Voids 2 - Exam General: Ill appearing, toxic, appears at stated age Derm: Right lateral malleoli with half-dollar size lesion in the producing serous exudate, surrounding erythema and warmth, edematous no rashes, no lesions Head: atraumatic, normocephalic, symmetric Eyes: EOMI, no lid lag, anicteric sclera ENT: no post nasal drip, no thrush Mouth: no lip lesion, mucus membranes moist Cardiovascular: S1S2 reg, no murmur, decreased posterior tibial and dorsalis pedis pulses bilaterally, Lungs: CTA bilateral, no rhonchi, no rales , no accessory muscle use Abdominal: soft, nontender to palpation, no guarding, no appreciable organomegaly Ext: no gross muscle atrophy, edema right ankle, no contractures Neuro: CN II-XI grossly intact, no focal neuro deficits Psych: Lethargic, oriented, appropriate affect - Labs CBC & Chem 7: 08/08/17 07:42 08/08/17 07:42 Labs: Abnormal Lab Results - Last 24 Hours (Table) 08/07/17 08/07/17 08/08/17 Range/Units 18:48 18:48 07:42 WBC 16.3 H (3.8-10.6) k/uL MCV 100.2 H 103.1 H (80.0-100.0) fL MCHC 30.8 L 30.5 L (31.0-37.0) g/dL RDW 16.1 H 16.2 H (11.5-15.5) % Neutrophils # 13.8 H 9.1 H (1.3-7.7) k/uL Lymphocytes # 0.9 L (1.0-4.8) k/uL Potassium 3.2 L (3.5-5.1) mmol/L Chloride (98-107) mmol/L Carbon Dioxide 21 L (22-30) mmol/L Creatinine 1.05 H (0.52-1.04) mg/dL Glucose 136 H (74-99) mg/dL AST (14-36) U/L Alkaline Phosphatase 281 H (38-126) U/L Total Protein (6.3-8.2) g/dL Albumin 3.4 L (3.5-5.0) g/dL 08/08/17 Range/Units 07:42 WBC (3.8-10.6) k/uL MCV (80.0-100.0) fL MCHC (31.0-37.0) g/dL RDW (11.5-15.5) % Neutrophils # (1.3-7.7) k/uL Lymphocytes # (1.0-4.8) k/uL Potassium (3.5-5.1) mmol/L Chloride 113 H (98-107) mmol/L Carbon Dioxide 18 L (22-30) mmol/L Creatinine 1.12 H (0.52-1.04) mg/dL Glucose 140 H (74-99) mg/dL AST 12 L (14-36) U/L Alkaline Phosphatase 212 H (38-126) U/L Total Protein 5.2 L (6.3-8.2) g/dL Albumin 2.6 L (3.5-5.0) g/dL Microbiology - Last 24 Hours (Table) 08/07/17 18:48 Blood Culture Gram Stain - Preliminary Blood 08/07/17 18:48 Blood Culture - Final Blood Assessment and Plan Plan: #Right ankle wound with cellulitis and sepsis associated with right trimalleolar fracture -500 mL normal saline bolus now and increase IV fluids -Umer Santana -Infectious disease consult -Ortho recommendations appreciated -Vascular surgery consultation - MRI pending #Gram-positive bacteremia -Continue vancomycin -Infectious disease consult -Repeat blood cultures in a.m. #Hypotension suspect secondary to adrenal insufficiency from chronic steroid use -Start stress dose steroids -Start insulin sliding scale and blood sugar monitoring #Suspect clinical COPD with acute exacerbation -Breathing treatments -Pulmonary hygiene -Steroids -Check stat ABG #Moderate protein calorie malnutrition -Encouraged healthy diet -Supplementation #Macrocytosis -Check TSH B12 and folic acid #Neuropathy -Resume gabapentin Resolved: Hypokalemia DVT prophylaxis: Lovenox Discussed with: Patient, family, nursing, ortho Anticipated discharge: 5-[address]: SNF A total of 45 minutes was spent on the care of this complex patient more than 50 % of the time was spent in counseling and care coordination.
[2017-08-08] MEDS ORDERED: SODIUM CHLORIDE 0.9% 500 ML IV ONE (09:39)
--- NOTE | 2017-08-08 09:42 | P.CNOR ---
History of Present Illness - HPI Consult date: 08/08/17 History of present illness: This is a 56-year-old female who is admitted for infection of the right ankle. Patient sustained a fracture dislocation to the right ankle about one month ago. Patient does not know the cause of the injury and attributes this to her chronic neuropathy and rheumatoid arthritis. Patient has been followed as an outpatient by Dr. Aelx Bell. Patient has been utilizing a walking boot for support. Patient has chronic ulcers to the lateral aspect of the right ankle, anterior aspect aspect of the right ankle and to the heel of the right foot. Patient presented to the office yesterday with worsening condition of these ulcers. Patient reported purulent drainage and protrusion of soft tissue to the wound of the lateral ankle. Patient reported feeling chills, but had no measured fever. Patient was sent to the ER for admission for IV antibiotics, vascular consult, and infectious disease consult. Today patient states her pain is controlled and she denies fever/chills, nausea or vomiting. Review of Systems See HPI. Past Medical History Past Medical History: Hypertension, Osteoarthritis (OA), Rheumatoid Arthritis ( RA) Additional Past Medical History / Comment(s): neuropathy Vitiligo, Raynaud's peripheral neuropathy. History of Any Multi-Drug Resistant Organisms: MRSA Year Discovered:: 06/11/12 MDRO Source:: Unknown Past Surgical History: Appendectomy, Section, Joint Replacement, Orthopedic Surgery, Tonsillectomy, Tubal Ligation Additional Past Surgical History / Comment(s): right shoulder replacement Past Anesthesia/Blood Transfusion Reactions: No Reported Reaction Past Psychological History: Depression Smoking Status: Current every day smoker Past Alcohol Use History: Occasional Past Drug Use History: None Reported - Past Family History Mother Family Medical History: No Reported History, Diabetes Mellitus, Hyperlipidemia, Hypertension Father Family Medical History: Diabetes Mellitus, Hypertension Sister(s) Family Medical History: No Reported History Son(s) Family Medical History: No Reported History Medications and Allergies Home Medications Medication Instructions Recorded Confirmed Type Omeprazole [PriLOSEC] 20 mg PO DAILY 02/06/16 08/07/17 History Hydroxychloroquine Sulfate 200 mg PO DAILY 06/12/16 08/07/17 History [Plaquenil] Metoprolol Succinate (ER) [Toprol 50 mg PO DAILY 06/13/16 08/07/17 History Xl] ALPRAZolam [Xanax] 0.5 mg PO DAILY PRN 12/19/16 08/07/17 History DULoxetine HCL [Cymbalta] 60 mg PO DAILY 12/19/16 08/07/17 History Lacosamide [Vimpat] 50 mg PO BID 12/19/16 08/07/17 History Ibuprofen [Motrin] 600 mg PO Q8HR PRN 07/04/17 08/07/17 History Folic Acid 1 mg PO DAILY 08/07/17 08/07/17 History Gabapentin [Neurontin] 300 mg PO TID 08/07/17 08/07/17 History Multivitamins, Thera [Multivitamin 1 tab PO DAILY 08/07/17 08/07/17 History (formulary)] Allergies Allergy/AdvReac Type Severity Reaction Status Date / Time No Known Allergies Allergy Verified 08/07/17 19:01 Physical Examination On exam of the right lower extremity there is deformity of the right ankle. There is an ulceration to the lateral aspect of the right ankle draining purulent material and with soft tissue protruding from it. The ulceration of the anterior aspect of the left ankle is not currently draining. Patient has a necrotic ulceration to the heel of the right foot. There is surrounding erythema of these ulcerations. Patient has pain with range of motion of the right ankle. Capillary refill is normal at less than 2 seconds. Results Blood cultures showing gram positive cocci. Wound cultures pending. MRI of the right ankle is pending. X-ray of the right ankle show worsening fracture dislocation of right ankle. - Labs Labs: Abnormal Lab Results - Last 24 Hours (Table) 08/07/17 08/07/17 08/08/17 Range/Units 18:48 18:48 07:42 WBC 16.3 H (3.8-10.6) k/uL MCV 100.2 H 103.1 H (80.0-100.0) fL MCHC 30.8 L 30.5 L (31.0-37.0) g/dL RDW 16.1 H 16.2 H (11.5-15.5) % Neutrophils # 13.8 H 9.1 H (1.3-7.7) k/uL Lymphocytes # 0.9 L (1.0-4.8) k/uL Potassium 3.2 L (3.5-5.1) mmol/L Chloride (98-107) mmol/L Carbon Dioxide 21 L (22-30) mmol/L Creatinine 1.05 H (0.52-1.04) mg/dL Glucose 136 H (74-99) mg/dL AST (14-36) U/L Alkaline Phosphatase 281 H (38-126) U/L Total Protein (6.3-8.2) g/dL Albumin 3.4 L (3.5-5.0) g/dL 08/08/17 Range/Units 07:42 WBC (3.8-10.6) k/uL MCV (80.0-100.0) fL MCHC (31.0-37.0) g/dL RDW (11.5-15.5) % Neutrophils # (1.3-7.7) k/uL Lymphocytes # (1.0-4.8) k/uL Potassium (3.5-5.1) mmol/L Chloride 113 H (98-107) mmol/L Carbon Dioxide 18 L (22-30) mmol/L Creatinine 1.12 H (0.52-1.04) mg/dL Glucose 140 H (74-99) mg/dL AST 12 L (14-36) U/L Alkaline Phosphatase 212 H (38-126) U/L Total Protein 5.2 L (6.3-8.2) g/dL Albumin 2.6 L (3.5-5.0) g/dL Microbiology - Last 24 Hours (Table) 08/07/17 18:48 Blood Culture Gram Stain - Preliminary Blood 08/07/17 18:48 Blood Culture - Final Blood H & H 08/07/17 08/08/17 Range/Units 18:48 07:42 Hgb 13.5 12.1 (11.4-16.0) gm/dL Hct 44.0 39.5 (34.0-46.0) % Result Diagrams: 08/08/17 07:42 08/08/17 07:42 Assessment and Plan (1) Cellulitis Status: Acute (2) Infected wound Status: Acute (3) Sepsis Status: Acute (4) Trimalleolar fracture of ankle, open Status: Acute Plan: #1. Wound cultures pending. Blood cultures showing gram positive cocci. #2. Continue IV antibiotics and pain control. #3. Nonweightbearing to the right lower extremity. #4. NPO #5. Infectious disease and vascular consults are pending. #6. Appreciate input from medicine #7. MRI pending #8. Will continue to follow the patient closely.
[2017-08-08] MEDS: HYDROCORTISONE SUCCINATE 100 MG/2 ML VIAL IV SCH ×3 (10:00→23:21)
[2017-08-08] MEDS: SODIUM CHLORIDE 0.9% 1,000 ML IV SCH ×2 (10:01→23:18)
[2017-08-08 10:47] LABS: Erythrocyte Sedimentation Rate 41 mm/hr (0-20)
[2017-08-08 10:56] LABS: ABG HCO3 16 mmol/L (21-25); ABG PCO2 36 mmHg (35-45); ABG PH 7.27 (7.35-7.45); ABG PO2 74 mmHg (83-108); ABG TCO2 17 mmol/L (19-24)
[2017-08-08 11:32] LABS: Glucose,Whole Blood 183 mg/dL (75-99)
[2017-08-08 12:07] LABS: C Reactive Protein 324.2 mg/L (<10.0)
[2017-08-08] MEDS ORDERED: NICOTINE 14MG/24HR PATCH TRANSDERM STA (12:24)
[2017-08-08] MEDS: IPRATROPIUM-ALBUTEROL 3 ML NEB INHALATION SCH ×3 (13:08→21:15)
[2017-08-08] MEDS: INSULIN LISPRO (humaLOG) 300 UNIT/3 ML VIAL SQ SCH ×3 (13:30→20:50)
[2017-08-08 13:58] LABS: Hemoglobin A1C 6.5 % (4.2-6.1)
[2017-08-08 18:34] LABS: Glucose,Whole Blood 190 mg/dL (75-99)
--- NOTE | 2017-08-08 20:09 | CONS ---
DATE OF CONSULTATION: 08/08/2017 This patient was seen on consult. This is a 56-year-old female patient has been admitted. She has dislocation of the right ankle about a month ago and the patient was wearing a boot and she developed infection in the right ankle joint with open wound on the lateral aspect of the right ankle. The patient has been admitted because blood culture was positive and patient is under care of Dr. Gentry Berg for IV antibiotics. MEDICAL HISTORY: No history of diabetes or coronary disease. The patient has history of rheumatoid arthritis. On examination, neck is supple. No bruit appreciated. Chest is clear to auscultation. Abdomen is soft, nontender. Vascular examination: Left femoral is palpable. Right femoral is diminished. The patient has a Doppler signal in the right posterior tibial. No Doppler signal noted on the dorsalis pedis. The patient has a posterior tibial by the Doppler and the patient has a dislocated right ankle with large infected wound on the lateral right ankle. Left side femoral is 2+ and dorsal pedis is palpable. Patient has a brown discoloration of both lower extremities. PLAN: Patient is on IV antibiotic. I have discussed with the family. This is nonfunctional foot. Most likely she will need amputation. We will do the angiogram for if this should be done below the knee or above the knee. Of note, since blood culture positive I will wait for a couple of days before we do the angiogram. I will discuss with Dr. Berg and follow up with you. Thank you very much. JOHNL / IJN: [id number] / [place]
[2017-08-08 20:32] LABS: Glucose,Whole Blood 173 mg/dL (75-99)
--- NOTE | 2017-08-08 22:44 | P.CONS ---
History of Present Illness - Reason for Consult Consult date: 08/08/17 - Chief Complaint Infection right ankle - History of Present Illness 56-year-old female, originally from [place], presents the emergency center for increasing difficulties with her right ankle. On July 04 she did present to the emergency center with deformity to her ankle. She has a long- standing history of rheumatoid arthritis and some neuropathy. However due to dyspnea and change of her ankle in June she presented to emergency center and was sent to orthopedics. At that time she was placed into a specialty boot and was asking follow-up. Apparently in the meantime she developed a significant ulceration to the lateral surface of the ankle that has now been draining purulent material. Ankles become considerably more swollen. It's deformity has increased. The patient herself became quite ill with fevers and chills. Because of the acute change of her status she was brought back to the emergency center and admitted. With evidence of sepsis and bacteremia the infectious diseases consultation was requested. Of note the current x-rays reveal evidence of some further destruction to the ankle consistent with an acute infectious process. The patient is quite miserable at this time Review of Systems HEENT:Denies headache or acute visual change. Denies sinus or mouth discomforts. Denies neck stiffness or pain. Denies significant oral cavity pain. Denies difficulty on swallowing. Lungs: Denies significant shortness of breath, cough, sputum production, or hemoptysis. Cardiovascular: Denies significant shortness of breath, chest pain, chest wall pain, orthopnea, dyspnea on exertion, syncope Gastrointestinal:Denies nausea, vomiting, diarrhea, constipation, hematemesis, melena, hematochezia. No no significant change of bowel habit noticed. Musculoskeletal: Rheumatoid arthritis with ulceration right ankle Skin: Ulcer right ankle.. Neuro: Denies headache or visual change. Denies any new onset weakness or difficulty with ambulation. Denies falls or seizures. Psychiatric:Denies anxiety or depression. Endocrine: Denies significant fatigue, denies significant weight loss or weight gain. Past Medical History Past Medical History: Hypertension, Osteoarthritis (OA), Rheumatoid Arthritis ( RA) Additional Past Medical History / Comment(s): neuropathy Vitiligo, Raynaud's peripheral neuropathy. History of Any Multi-Drug Resistant Organisms: MRSA Year Discovered:: 06/11/12 MDRO Source:: Unknown Past Surgical History: Appendectomy, Section, Joint Replacement, Orthopedic Surgery, Tonsillectomy, Tubal Ligation Additional Past Surgical History / Comment(s): right shoulder replacement Past Anesthesia/Blood Transfusion Reactions: No Reported Reaction Past Psychological History: Depression Additional Psychological History / Comment(s): . Originally from [place] has been here for many years. Does not work outside of the home. Ongoing tobacco use and daily alcohol use. No recent travel. No animal exposures Smoking Status: Current every day smoker Past Alcohol Use History: Occasional Past Drug Use History: None Reported - Past Family History Mother Family Medical History: No Reported History, Diabetes Mellitus, Hyperlipidemia, Hypertension Father Family Medical History: Diabetes Mellitus, Hypertension Sister(s) Family Medical History: No Reported History Son(s) Family Medical History: No Reported History Medications and Allergies Home Medications and Allergies Comment(s): Current Medications Albuterol Sulfate (Ventolin Nebulized) 2.5 mg INHALATION RT-Q2H PRN PRN Reason: Shortness Of Breath Or Wheezing Albuterol/Ipratropium (Duoneb 0.5 Mg-3 Mg/3 Ml Soln) 3 ml INHALATION RT-QID [facility] Last Admin: 08/08/17 21:15 Dose: 3 ml Alprazolam (Xanax) 0.5 mg PO DAILY PRN PRN Reason: Anxiety Duloxetine HCl (Cymbalta) 60 mg PO DAILY [facility] Last Admin: 08/08/17 09:17 Dose: 60 mg Enoxaparin Sodium (Lovenox) 40 mg SQ DAILY [facility] Last Admin: 08/08/17 09:15 Dose: 40 mg Famotidine (Pepcid) 20 mg PO BID [facility] Last Admin: 08/08/17 20:51 Dose: 20 mg Folic Acid (Folic Acid) 1 mg PO DAILY [facility] Gabapentin (Neurontin) 300 mg PO TID [facility] Last Admin: 08/08/17 20:51 Dose: 300 mg Hydrocortisone Sodium Succinate (Solu-Cortef) 100 mg IV Q8HR [facility] Last Admin: 08/08/17 18:28 Dose: 100 mg Hydroxychloroquine Sulfate (Plaquenil) 200 mg PO DAILY [facility] Last Admin: 08/08/17 09:23 Dose: 200 mg Vancomycin HCl 1,250 mg/ (Sodium Chloride) 250 mls @ 125 mls/hr IVPB Q12H [facility] Last Admin: 08/08/17 19:08 Dose: 125 mls/hr Sodium Chloride (Saline 0.9%) 1,000 mls @ 125 mls/hr IV .Q8H [facility] Last Admin: 08/08/17 10:01 Dose: 125 mls/hr Ceftazidime 2 gm/ Sodium (Chloride) 100 mls @ 100 mls/hr IVPB Q8HR [facility] Last Admin: 08/08/17 14:58 Dose: 100 mls/hr Insulin Human Lispro (Humalog) 0 unit SQ ACHS [facility] PRN Reason: Protocol Last Admin: 08/08/17 20:50 Dose: 4 unit Lacosamide (Vimpat) 50 mg PO DAILY [facility] Last Admin: 08/08/17 09:24 Dose: Not Given Metoprolol Succinate (Toprol Xl) 50 mg PO DAILY [facility] Last Admin: 08/08/17 09:24 Dose: Not Given Morphine Sulfate (Morphine Sulfate (Inj)) 4 mg IV Q4HR PRN PRN Reason: Severe Pain Last Admin: 08/08/17 05:39 Dose: 4 mg Multivitamins (Theragran) 1 each PO DAILY [facility] Naloxone HCl (Narcan) 0.2 mg IV Q2M PRN PRN Reason: Opioid Reversal Nicotine (Habitrol 14mg/24hr Patch) 1 patch TRANSDERM DAILY [facility] Ondansetron HCl (Zofran) 4 mg IVP Q8HR PRN PRN Reason: Nausea And Vomiting Thiamine HCl (Vitamin B-1) 100 mg PO BID@1200,1700 [facility] Last Admin: 08/08/17 09:16 Dose: 100 mg Tramadol HCl (Ultram) 50 mg PO Q6H PRN PRN Reason: Moderate Pain Home Medications Medication Instructions Recorded Confirmed Type Omeprazole [PriLOSEC] 20 mg PO DAILY 02/06/16 08/07/17 History Hydroxychloroquine Sulfate 200 mg PO DAILY 06/12/16 08/07/17 History [Plaquenil] Metoprolol Succinate (ER) [Toprol 50 mg PO DAILY 06/13/16 08/07/17 History Xl] ALPRAZolam [Xanax] 0.5 mg PO DAILY PRN 12/19/16 08/07/17 History DULoxetine HCL [Cymbalta] 60 mg PO DAILY 12/19/16 08/07/17 History Lacosamide [Vimpat] 50 mg PO BID 12/19/16 08/07/17 History Ibuprofen [Motrin] 600 mg PO Q8HR PRN 07/04/17 08/07/17 History Folic Acid 1 mg PO DAILY 08/07/17 08/07/17 History Gabapentin [Neurontin] 300 mg PO TID 08/07/17 08/07/17 History Multivitamins, Thera [Multivitamin 1 tab PO DAILY 08/07/17 08/07/17 History (formulary)] Allergies Allergy/AdvReac Type Severity Reaction Status Date / Time No Known Allergies Allergy Verified 08/07/17 19:01 Physical Exam Vitals: Vital Signs Temp Pulse Pulse Resp BP Pulse Ox 08/08/17 21:24 88 08/08/17 21:15 88 08/08/17 20:00 99.4 F 98 16 92/56 96 08/08/17 16:42 84 08/08/17 16:27 84 08/08/17 16:17 16 103/58 08/08/17 13:19 92 08/08/17 13:08 88 08/08/17 11:04 92/68 08/08/17 09:30 101 H 83/55 95 08/08/17 07:00 98.2 F 101 H 16 89/54 08/08/17 01:25 98.6 F 102 H 16 91/54 92 L Intake and Output 08/08/17 08/08/17 08/08/17 06:59 14:59 22:59 Intake Total 775 1125 750 Balance 775 1125 750 Intake: IV 1125 Sodium Chloride 0.9% 1, 625 000 ml @ 125 mls/hr IV . Q8H [facility] Rx#:[id number] Sodium Chloride 0.9% 500 500 ml @ 999 mls/hr IV .Q31M [facility] Rx#:[id number] Intake, IV Titration 375 250 Amount Piperacillin-Tazobactam 3 50 .375 gm In Dextrose/Water 1 50ml.bag @ 12.5 mls/hr IVPB Q8HR [facility] Rx#: [id number] Potassium Chloride 10 meq 200 Lidocaine 2% Inj 10 mg In Sodium Chloride 0.9% 100 ml @ 100 mls/hr IVPB Q1HR [facility] Rx#:[id number] Vancomycin 1,250 mg In 250 Sodium Chloride 0.9% 250 ml @ 125 mls/hr IVPB Q12H [facility] Rx#:[id number] Vancomycin 1,500 mg In 125 Sodium Chloride 0.9% 250 ml @ 125 mls/hr IVPB [facility] Rx#:[id number] Oral 400 500 Other: # Voids 2 1 2 56-year-old woman who is modestly comfortable at this time. But does relate to significant discomfort to the right ankle. She denying fever, chills at this time HEENT: Anicteric conjunctiva are pink and moist nasal mucosa grossly intact without significant lesions, there is no thrush. Neck: The neck is supple without significant lymphadenopathy or thyromegaly. Lungs: There is symmetrical air entry. Heart: Regular rate and rhythm with an audible S1-S2, no S3 no S4. There is no significant murmur click or rub, PMI was nondisplaced. Abdomen: Positive bowel sounds soft and nontender without palpable masses or organomegaly. There was no guarding or rebound. Extremities: The upper extremities have excellent pulses they are symmetric, no significant petechiae or telangiectasia. No splinter hemorrhages were noted. The left lower extremity is without acute abnormalities except for changes of rheumatoid arthritis. Right lower extremity versus the marked deformity to the ankle. There is evidence of a ulceration that has necrotic material extruding from it. There is significant warmth and erythema to the tissue. With a marked deformity no attempt for range of motion was made. Does appear to have intact sensation over the toes. There is palpable dorsalis pedis pulse. Neuro she is awake alert oriented to person place and time and has no new acute gross focal sensory motor deficits Results CBC & Chem 7: 08/08/17 07:42 08/08/17 07:42 Labs: Abnormal Lab Results - Last 24 Hours (Table) 08/08/17 08/08/17 08/08/17 Range/Units 07:42 07:42 07:42 MCV 103.1 H (80.0-100.0) fL MCHC 30.5 L (31.0-37.0) g/dL RDW 16.2 H (11.5-15.5) % Neutrophils # 9.1 H (1.3-7.7) k/uL Lymphocytes # 0.9 L (1.0-4.8) k/uL ESR 41 H (0-20) mm/hr ABG pH (7.35-7.45) ABG pO2 (83-108) mmHg ABG HCO3 (21-25) mmol/L ABG Total CO2 (19-24) mmol/L ABG O2 Saturation (94-97) % Chloride 113 H (98-107) mmol/L Carbon Dioxide 18 L (22-30) mmol/L Creatinine 1.12 H (0.52-1.04) mg/dL Glucose 140 H (74-99) mg/dL POC Glucose (mg/dL) (75-99) mg/dL Hemoglobin A1c 6.5 H (4.2-6.1) % AST 12 L (14-36) U/L Alkaline Phosphatase 212 H (38-126) U/L C-Reactive Protein 324.2 H (<10.0) mg/L Total Protein 5.2 L (6.3-8.2) g/dL Albumin 2.6 L (3.5-5.0) g/dL 08/08/17 08/08/17 08/08/17 Range/Units 10:47 11:25 18:32 MCV (80.0-100.0) fL MCHC (31.0-37.0) g/dL RDW (11.5-15.5) % Neutrophils # (1.3-7.7) k/uL Lymphocytes # (1.0-4.8) k/uL ESR (0-20) mm/hr ABG pH 7.27 L (7.35-7.45) ABG pO2 74 L (83-108) mmHg ABG HCO3 16 L (21-25) mmol/L ABG Total CO2 17 L (19-24) mmol/L ABG O2 Saturation 93.0 L (94-97) % Chloride (98-107) mmol/L Carbon Dioxide (22-30) mmol/L Creatinine (0.52-1.04) mg/dL Glucose (74-99) mg/dL POC Glucose (mg/dL) 183 H 190 H (75-99) mg/dL Hemoglobin A1c (4.2-6.1) % AST (14-36) U/L Alkaline Phosphatase (38-126) U/L C-Reactive Protein (<10.0) mg/L Total Protein (6.3-8.2) g/dL Albumin (3.5-5.0) g/dL 08/08/17 Range/Units 20:29 MCV (80.0-100.0) fL MCHC (31.0-37.0) g/dL RDW (11.5-15.5) % Neutrophils # (1.3-7.7) k/uL Lymphocytes # (1.0-4.8) k/uL ESR (0-20) mm/hr ABG pH (7.35-7.45) ABG pO2 (83-108) mmHg ABG HCO3 (21-25) mmol/L ABG Total CO2 (19-24) mmol/L ABG O2 Saturation (94-97) % Chloride (98-107) mmol/L Carbon Dioxide (22-30) mmol/L Creatinine (0.52-1.04) mg/dL Glucose (74-99) mg/dL POC Glucose (mg/dL) 173 H (75-99) mg/dL Hemoglobin A1c (4.2-6.1) % AST (14-36) U/L Alkaline Phosphatase (38-126) U/L C-Reactive Protein (<10.0) mg/L Total Protein (6.3-8.2) g/dL Albumin (3.5-5.0) g/dL Microbiology - Last 24 Hours (Table) 08/07/17 18:48 Blood Culture Gram Stain - Preliminary Blood Blood Culture - Preliminary Presumptive Staph aureus 08/08/17 08:40 Wound Culture - Preliminary Ankle - Right 08/08/17 08:40 Anaerobic Culture - Preliminary Ankle - Right 08/07/17 18:48 Blood Culture - Final Blood Laboratory Results WBC 10.6 k/uL (3.8-10.6) 08/08/17 07:42 RBC 3.83 m/uL (3.80-5.40) 08/08/17 07:42 Hgb 12.1 gm/dL (11.4-16.0) 08/08/17 07:42 Hct 39.5 % (34.0-46.0) 08/08/17 07:42 MCV 103.1 fL (80.0-100.0) H 08/08/17 07:42 MCH 31.5 pg (25.0-35.0) 08/08/17 07:42 MCHC 30.5 g/dL (31.0-37.0) L 08/08/17 07:42 RDW 16.2 % (11.5-15.5) H 08/08/17 07:42 Plt Count 170 k/uL (150-450) 08/08/17 07:42 Neutrophils % 86 % 08/08/17 07:42 Lymphocytes % 8 % 08/08/17 07:42 Monocytes % 4 % 08/08/17 07:42 Eosinophils % 1 % 08/08/17 07:42 Basophils % 1 % 08/08/17 07:42 Neutrophils # 9.1 k/uL (1.3-7.7) H 08/08/17 07:42 Lymphocytes # 0.9 k/uL (1.0-4.8) L 08/08/17 07:42 Monocytes # 0.4 k/uL (0-1.0) 08/08/17 07:42 Eosinophils # 0.1 k/uL (0-0.7) 08/08/17 07:42 Basophils # 0.1 k/uL (0-0.2) 08/08/17 07:42 Hypochromasia Slight 08/08/17 07:42 Anisocytosis Slight 08/08/17 07:42 Macrocytosis Moderate 08/08/17 07:42 ESR 41 mm/hr (0-20) H 08/08/17 07:42 Sample Site rrad 08/08/17 10:47 ABG pH 7.27 (7.35-7.45) L 08/08/17 10:47 ABG pCO2 36 mmHg (35-45) 08/08/17 10:47 ABG pO2 74 mmHg (83-108) L 08/08/17 10:47 ABG HCO3 16 mmol/L (21-25) L 08/08/17 10:47 ABG Total CO2 17 mmol/L (19-24) L 08/08/17 10:47 ABG O2 Saturation 93.0 % (94-97) L 08/08/17 10:47 ABG Base Excess -10.0 mmol/L 08/08/17 10:47 FiO2 21 % 08/08/17 10:47 Sodium 139 mmol/L (137-145) 08/08/17 07:42 Potassium 3.8 mmol/L (3.5-5.1) 08/08/17 07:42 Chloride 113 mmol/L (98-107) H 08/08/17 07:42 Carbon Dioxide 18 mmol/L (22-30) L 08/08/17 07:42 Anion Gap 8 mmol/L 08/08/17 07:42 BUN 16 mg/dL (7-17) 08/08/17 07:42 Creatinine 1.12 mg/dL (0.52-1.04) H 08/08/17 07:42 Est GFR (MDRD) Af Amer >60 (>60 ml/min/1.73 sqM) 08/08/17 07:42 Est GFR (MDRD) Non-Af 51 (>60 ml/min/1.73 sqM) 08/08/17 07:42 Glucose 140 mg/dL (74-99) H 08/08/17 07:42 POC Glucose (mg/dL) 173 mg/dL (75-99) H 08/08/17 20:29 POC Glu [employer] Vanesa López 08/08/17 20:[address] Glu mg/dL 140 mg/dL 08/08/17 07:42 Hemoglobin A1c 6.5 % (4.2-6.1) H 08/08/17 07:42 Plasma Lactic Acid Al 1.1 mmol/L (0.7-2.0) 08/08/17 08:20 Calcium 8.7 mg/dL (8.4-10.2) 08/08/17 07:42 Total Bilirubin 0.5 mg/dL (0.2-1.3) 08/08/17 07:42 AST 12 U/L (14-36) L 08/08/17 07:42 ALT 27 U/L (9-52) 08/08/17 07:42 Alkaline Phosphatase 212 U/L (38-126) H 08/08/17 07:42 C-Reactive Protein 324.2 mg/L (<10.0) H 08/08/17 07:42 Total Protein 5.2 g/dL (6.3-8.2) L 08/08/17 07:42 Albumin 2.6 g/dL (3.5-5.0) L 08/08/17 07:42 Microbiology 08/07/17 18:48 Blood Blood Culture Gram Stain - Preliminary 08/07/17 18:48 Blood Blood Culture - Preliminary Presumptive Staph aureus 08/08/17 08:40 Ankle - Right Wound Culture - Preliminary 08/08/17 08:40 Ankle - Right Anaerobic Culture - Preliminary 08/07/17 18:48 Blood Blood Culture - Final Assessment and Plan (1) Cellulitis and abscess of right leg Status: Acute (2) Trimalleolar fracture of ankle, open Status: Acute (3) Sepsis Narrative/Plan: 56-year-old woman presents to hospital with increasing difficulties related to her right ankle. She presented emergency center on 07/04/2017 at which point in time there is evidence of a trimalleolar fracture. She was placed into mobilization and referred to orthopedics. She's been in immobilization since that time. However is developed a significant ulceration to the lateral aspect of the ankle with grossly necrotic material. The foot has become quite swollen especially at the ankle with significant and gross deformity. There is erythema and purulent drainage. This has been cultured. Blood cultures are also positive at this point in time. Both the wound and blood cultures appear to be staph aureus. She does have a history of MRSA. Constantly vancomycin therapy is utilize. Until cultures are finalized antibiotic therapy is also enhance with ceftazidime with her history of prior acientobacter infection. Follow blood cultures are been requested Further imaging to the joint has been requested. She may require extensive surgical debridement to the area. If this is refractory infection she may be a candidate for hyperbaric oxygen therapy. Orthopedic foot and ankle evaluation could be helpful. If patient has persistently positive blood cultures would need to have echocardiogram at that time also. The significant leukocytosis to related to her sepsis Orthopedics is requested a vascular surgery consult also to ensure the adequacy of her vascular structure with his gross deformity and history of tobacco use. Status: Acute (4) Septic arthritis of right ankle Status: Acute
--- NOTE | 2017-08-08 23:33 | MR ---
EXAMINATION TYPE: MR ankle RT wo/w con DATE OF EXAM: 08/08/2017 COMPARISON: NONE HISTORY: OPEN ANKLE FRACTURE , OSTEOMYLITIS CONTRAST: Standard multiplanar, multisequence MRI departmental protocol utilizing 7 mL intravenous Gadavist chloé olinium contrast. FINDINGS: There is a medial dislocation of the talus. There is ankle joint effusion. There is also si gnificant proximal migration of the talus in relation to the distal tibia. There is a 2.8 x 2 cm larg e fracture fragment of the medial malleolus which is in anatomic position with the talus. There is brown bchondral increased signal in the distal tibia. There is transverse fracture of the distal fibula wit h some lateral angulation at the fracture site. This distal fragment measures 2.6 cm in length and ap pears to articulate in normal position with the talus and calcaneus. There is significant soft tissue fluid signal around the entire ankle joint region. The calcaneus is intact. There is partial collaps e of the lateral aspect of the dome of the talus. This is consistent with depressed fracture. There i s mild soft tissue enhancement around the entire ankle region consistent with cellulitis. There is brown bcutaneous edema on the plantar aspect of the hindfoot. IMPRESSION: There is a medial proximal dislocation of the talus. There is bimalleolar fracture of the ankle. Exte nsive soft tissue edema around the ankle joint. Soft tissue enhancement consistent with cellulitis. T here is subchondral edema across the articular surface of the distal tibia. I do not see any convinci ng evidence for osteomyelitis. Displacement of the fragments is significantly worse than the oldest e xam of 07/04/2017. This significant displacement could relate to neuropathic arthropathy. There is a 3 x 1 cm subcutaneous anterior fluid collection anterior to the distal tibia that could be chronic hematoma. Abscess cannot be excluded.
[2017-08-09] MEDS: MORPHINE SULFATE 4 MG/ML SYRINGE IV PRN ×2 (01:58→21:02)
[2017-08-09] MEDS: SODIUM CHLORIDE 0.9% 1,000 ML IV SCH ×4 (03:24→21:32)
[2017-08-09] MEDS: VANCOMYCIN 1,250 MG in SODIUM CHLORIDE 0.9% 250 ML IVPB SCH ×2 (05:12→18:26)
[2017-08-09 07:09] LABS: Anisocytosis Slight; Basophils % (A) 0 %; CH 31.5; CHCM 30.6; Eosinophils % (A) 0 %; HCT 35.3 % (34.0-46.0); HDW 2.69; HGB 10.5 gm/dL (11.4-16.0); Hypochromasia Moderate; Luc # (Auto) 0.05; Luc % (Auto) 1; Lymphocytes # (A) 0.4 k/uL (1.0-4.8); Lymphocytes % (A) 4 %; MCHC 29.9 g/dL (31.0-37.0); MCV 103.7 fL (80.0-100.0); Macrocytosis Moderate; Mean Platelet Volume 8.2; Monocytes # (A) 0.4 k/uL (0-1.0); Monocytes % (A) 4 %; Neutrophils # (A) 7.9 k/uL (1.3-7.7); Neutrophils % (A) 91 %; RDW 16.4 % (11.5-15.5); WBC 8.7 k/uL (3.8-10.6); WBC (Perox) 9.71
[2017-08-09 07:15] LABS: Glucose,Whole Blood 199 mg/dL (75-99)
[2017-08-09] MEDS: IPRATROPIUM-ALBUTEROL 3 ML NEB INHALATION SCH ×4 (08:07→21:19)
[2017-08-09] MEDS: INSULIN LISPRO (humaLOG) 300 UNIT/3 ML VIAL SQ SCH ×4 (08:25→21:32)
[2017-08-09] MEDS: DULoxetine HCL 60 MG CAPSULE.DR PO SCH (08:26)
[2017-08-09] MEDS: HYDROXYCHLOROQUINE SULFATE 200 MG TAB PO SCH (08:26)
[2017-08-09] MEDS: FAMOTIDINE 20 MG TAB PO SCH ×2 (08:26→21:04)
[2017-08-09] MEDS: FOLIC ACID 1 MG TAB PO SCH (08:26)
[2017-08-09] MEDS: MULTIVITAMINS, THERA 1 EACH TAB PO SCH (08:26)
[2017-08-09] MEDS: ENOXAPARIN 40 MG/0.4 ML SYRINGE SQ SCH (08:26)
[2017-08-09] MEDS: THIAMINE 100 MG TAB PO SCH ×2 (08:26→18:24)
[2017-08-09] MEDS: GABAPENTIN 300 MG CAP PO SCH ×3 (08:26→21:04)
[2017-08-09] MEDS: HYDROCORTISONE SUCCINATE 100 MG/2 ML VIAL IV SCH ×3 (08:27→23:38)
--- NOTE | 2017-08-09 09:04 | P.PN ---
Subjective Principal diagnosis: Critical fracture, cellulitis, wound infection This is a 56-year-old female admitted for right ankle fracture, cellulitis and wound infection. Patient has a history of neuropathy and rheumatoid arthritis. Patient has been followed as an outpatient by orthopedics. Patient states her pain is under control. Patient states she is feeling somewhat better. Patient has no new complaints today. Objective - Vital Signs Vital signs: Vital Signs Temp 97.8 F 08/09/17 07:37 Pulse 88 08/09/17 08:22 Resp 16 08/09/17 07:37 BP 101/65 08/09/17 07:37 Pulse Ox 97 08/09/17 07:37 Intake & Output 08/08/17 08/09/17 08/09/17 18:59 06:59 18:59 Intake Total 1125 750 Balance 1125 750 Intake: IV 1125 Sodium Chloride 0.9% 1, 625 000 ml @ 125 mls/hr IV . Q8H [facility] Rx#:[id number] Sodium Chloride 0.9% 500 500 ml @ 999 mls/hr IV .Q31M [facility] Rx#:[id number] Intake, IV Titration 250 Amount Vancomycin 1,250 mg In 250 Sodium Chloride 0.9% 250 ml @ 125 mls/hr IVPB Q12H [facility] Rx#:[id number] Oral 500 Other: # Voids 1 1 - Exam On exam of the right lower extremity there is some deformity of the ankle. There is ulceration of the heel, lateral malleolus and anterior aspect of the ankle. There is significant soft tissue swelling and erythema. The wound over the lateral malleolus is draining purulent material. Patient has limited range of motion of the foot and ankle due to fracture and swelling. - Labs CBC & Chem 7: 08/09/17 06:45 08/08/17 07:42 Labs: Abnormal Lab Results - Last 24 Hours (Table) 08/08/17 08/08/17 08/08/17 Range/Units 07:42 07:42 07:42 RBC (3.80-5.40) m/uL Hgb (11.4-16.0) gm/dL MCV (80.0-100.0) fL MCHC (31.0-37.0) g/dL RDW (11.5-15.5) % Neutrophils # (1.3-7.7) k/uL Lymphocytes # (1.0-4.8) k/uL ESR 41 H (0-20) mm/hr ABG pH (7.35-7.45) ABG pO2 (83-108) mmHg ABG HCO3 (21-25) mmol/L ABG Total CO2 (19-24) mmol/L ABG O2 Saturation (94-97) % POC Glucose (mg/dL) (75-99) mg/dL Hemoglobin A1c 6.5 H (4.2-6.1) % C-Reactive Protein 324.2 H (<10.0) mg/L Prealbumin (18.0-42.0) mg/dL 08/08/17 08/08/17 08/08/17 Range/Units 07:42 10:47 11:25 RBC (3.80-5.40) m/uL Hgb (11.4-16.0) gm/dL MCV (80.0-100.0) fL MCHC (31.0-37.0) g/dL RDW (11.5-15.5) % Neutrophils # (1.3-7.7) k/uL Lymphocytes # (1.0-4.8) k/uL ESR (0-20) mm/hr ABG pH 7.27 L (7.35-7.45) ABG pO2 74 L (83-108) mmHg ABG HCO3 16 L (21-25) mmol/L ABG Total CO2 17 L (19-24) mmol/L ABG O2 Saturation 93.0 L (94-97) % POC Glucose (mg/dL) 183 H (75-99) mg/dL Hemoglobin A1c (4.2-6.1) % C-Reactive Protein (<10.0) mg/L Prealbumin 14.0 L (18.0-42.0) mg/dL 08/08/17 08/08/17 08/09/17 Range/Units 18:32 20:29 06:45 RBC 3.40 L (3.80-5.40) m/uL Hgb 10.5 L (11.4-16.0) gm/dL MCV 103.7 H (80.0-100.0) fL MCHC 29.9 L (31.0-37.0) g/dL RDW 16.4 H (11.5-15.5) % Neutrophils # 7.9 H (1.3-7.7) k/uL Lymphocytes # 0.4 L (1.0-4.8) k/uL ESR (0-20) mm/hr ABG pH (7.35-7.45) ABG pO2 (83-108) mmHg ABG HCO3 (21-25) mmol/L ABG Total CO2 (19-24) mmol/L ABG O2 Saturation (94-97) % POC Glucose (mg/dL) 190 H 173 H (75-99) mg/dL Hemoglobin A1c (4.2-6.1) % C-Reactive Protein (<10.0) mg/L Prealbumin (18.0-42.0) mg/dL 08/09/17 Range/Units 06:59 RBC (3.80-5.40) m/uL Hgb (11.4-16.0) gm/dL MCV (80.0-100.0) fL MCHC (31.0-37.0) g/dL RDW (11.5-15.5) % Neutrophils # (1.3-7.7) k/uL Lymphocytes # (1.0-4.8) k/uL ESR (0-20) mm/hr ABG pH (7.35-7.45) ABG pO2 (83-108) mmHg ABG HCO3 (21-25) mmol/L ABG Total CO2 (19-24) mmol/L ABG O2 Saturation (94-97) % POC Glucose (mg/dL) 199 H (75-99) mg/dL Hemoglobin A1c (4.2-6.1) % C-Reactive Protein (<10.0) mg/L Prealbumin (18.0-42.0) mg/dL Microbiology - Last 24 Hours (Table) 08/08/17 14:03 Blood Culture Gram Stain - Preliminary Blood 08/08/17 14:03 Blood Culture - Final Blood 08/08/17 08:40 Gram Stain - Preliminary Ankle - Right Wound Culture - Preliminary 08/08/17 11:22 Blood Culture Gram Stain - Preliminary Blood 08/08/17 11:22 Blood Culture - Final Blood 08/07/17 18:48 Blood Culture Gram Stain - Preliminary Blood Blood Culture - Preliminary Presumptive Staph aureus 08/08/17 08:40 Anaerobic Culture - Preliminary Ankle - Right 08/07/17 18:48 Blood Culture - Final Blood Assessment and Plan (1) Cellulitis Status: Acute (2) Infected wound Status: Acute (3) Sepsis Status: Acute (4) Trimalleolar fracture of ankle, open Status: Acute Plan: #1. Nonweightbearing to the right lower extremity. #2. Appreciate input from infectious disease and vascular surgery #3. Appreciate input from medicine #4. IV antibiotics per infectious disease #7. MRI right ankle shows no evidence for osteomyelitis #8. Will continue to follow the patient closely.
[2017-08-09] MEDS: LACOSAMIDE 50 MG TABLET PO SCH (09:06)
[2017-08-09 09:23] LABS: Anion Gap 8 mmol/L; Blood Urea Nitrogen 18 mg/dL (7-17); Calcium 8.6 mg/dL (8.4-10.2); Carbon Dioxide 19 mmol/L (22-30); Chloride 117 mmol/L (98-107); Glucose 161 mg/dL (74-99); Non-African American GFR(MDRD) 60 (>60 ml/min/1.73 sqM); Sodium 144 mmol/L (137-145)
[2017-08-09] MEDS: METOPROLOL SUCCINATE (ER) 50 MG TAB.ER.24H PO SCH (09:47)
[2017-08-09] MEDS: traMADol 50 MG TAB PO PRN (09:48)
[2017-08-09] MEDS ORDERED: Potassium Replacement Protocol 1 EACH MISC MISCELLANE PRN (10:13)
[2017-08-09] MEDS ORDERED: POTASSIUM CHLORIDE ER 20 MEQ TAB.ER PO SCH (11:00)
[2017-08-09 11:09] LABS: Glucose,Whole Blood 210 mg/dL (75-99)
--- NOTE | 2017-08-09 11:14 | P.PN ---
Subjective Principal diagnosis: right foot wound Patient is a 56-year-old female with history of neuropathy, rheumatoid arthritis who was taken off steroids approximately one week ago, hypertension, and tobacco abuse who presented at the direction of the physician fleet assistant from her orthopedic office due to drainage on the right lateral malleoli. In the emergency department she underwent an extensive evaluation. She was found to have a right ankle wound with surrounding cellulitis and sepsis. She was started on Vanco, Zosyn, and IV fluids. She was admitted to the general medical floor for further monitoring and care. She was seen by orthopedics who recommended vascular consult for possible amputation. She had 1 set of blood cultures come back positive. She was continued on vancomycin. Infectious diseases consult the change her Zosyn to ceftazidime. She had recently come off oral steroids and started to appear adrenal insufficient was placed on stress dose steroids due to low blood pressures despite fluid resuscitation. MRI was done which did not demonstrate any evidence of osteomyelitis. She was seen by vascular who recommended angiogram and then possible BKA versus AKA. Echocardiogram was ordered to check status for possible infective endocarditis. Her blood sugars started to elevate secondary to steroid use and she was placed on insulin sliding scale. Hemoglobin A1c was done which was 6.5 and she was instructed on diabetic diet. Patient seen and examined at bedside. Still without bowel movement. Denies any nausea or vomiting. No chest pain. Shortness of breath is greatly improved. Discussed with her the findings of new onset diabetes with A1c 6.5. All questions answered. Objective - Vital Signs Vital signs: Vital Signs Temp 97.8 F 08/09/17 07:37 Pulse 88 08/09/17 08:22 Resp 16 08/09/17 07:37 BP 101/65 08/09/17 07:37 Pulse Ox 97 08/09/17 07:37 Intake & Output 08/08/17 08/09/17 08/09/17 18:59 06:59 18:59 Intake Total 1125 750 Balance 1125 750 Intake: IV 1125 Sodium Chloride 0.9% 1, 625 000 ml @ 125 mls/hr IV . Q8H [facility] Rx#:[id number] Sodium Chloride 0.9% 500 500 ml @ 999 mls/hr IV .Q31M [facility] Rx#:[id number] Intake, IV Titration 250 Amount Vancomycin 1,250 mg In 250 Sodium Chloride 0.9% 250 ml @ 125 mls/hr IVPB Q12H [facility] Rx#:[id number] Oral 500 Other: # Voids 1 1 - Exam General: Ill appearing, toxic, appears at stated age Derm: Right ankle with dressing in place, appears TM, no other rashes noted Head: atraumatic, normocephalic, symmetric Eyes: EOMI, no lid lag, anicteric sclera ENT: no post nasal drip, no thrush Mouth: no lip lesion, mucus membranes moist Cardiovascular: S1S2 reg, no murmur, decreased posterior tibial and dorsalis pedis pulses bilaterally, Lungs: Decreased breath sounds bilateral, no rhonchi, no rales , no accessory muscle use Abdominal: soft, nontender to palpation, no guarding, no appreciable organomegaly Ext: no gross muscle atrophy, edema right ankle, no contractures Neuro: CN II-XI grossly intact, no focal neuro deficits Psych: Alert, oriented, appropriate affect - Labs CBC & Chem 7: 08/09/17 06:45 08/09/17 06:45 Labs: Abnormal Lab Results - Last 24 Hours (Table) 08/08/17 08/08/17 08/08/17 Range/Units 07:42 07:42 07:42 RBC (3.80-5.40) m/uL Hgb (11.4-16.0) gm/dL MCV (80.0-100.0) fL MCHC (31.0-37.0) g/dL RDW (11.5-15.5) % Neutrophils # (1.3-7.7) k/uL Lymphocytes # (1.0-4.8) k/uL Potassium (3.5-5.1) mmol/L Chloride (98-107) mmol/L Carbon Dioxide (22-30) mmol/L BUN (7-17) mg/dL Glucose (74-99) mg/dL POC Glucose (mg/dL) (75-99) mg/dL Hemoglobin A1c 6.5 H (4.2-6.1) % C-Reactive Protein 324.2 H (<10.0) mg/L Prealbumin 14.0 L (18.0-42.0) mg/dL 08/08/17 08/08/17 08/08/17 Range/Units 11:25 18:32 20:29 RBC (3.80-5.40) m/uL Hgb (11.4-16.0) gm/dL MCV (80.0-100.0) fL MCHC (31.0-37.0) g/dL RDW (11.5-15.5) % Neutrophils # (1.3-7.7) k/uL Lymphocytes # (1.0-4.8) k/uL Potassium (3.5-5.1) mmol/L Chloride (98-107) mmol/L Carbon Dioxide (22-30) mmol/L BUN (7-17) mg/dL Glucose (74-99) mg/dL POC Glucose (mg/dL) 183 H 190 H 173 H (75-99) mg/dL Hemoglobin A1c (4.2-6.1) % C-Reactive Protein (<10.0) mg/L Prealbumin (18.0-42.0) mg/dL 08/09/17 08/09/17 08/09/17 Range/Units 06:45 06:45 06:59 RBC 3.40 L (3.80-5.40) m/uL Hgb 10.5 L (11.4-16.0) gm/dL MCV 103.7 H (80.0-100.0) fL MCHC 29.9 L (31.0-37.0) g/dL RDW 16.4 H (11.5-15.5) % Neutrophils # 7.9 H (1.3-7.7) k/uL Lymphocytes # 0.4 L (1.0-4.8) k/uL Potassium 3.0 L* (3.5-5.1) mmol/L Chloride 117 H (98-107) mmol/L Carbon Dioxide 19 L (22-30) mmol/L BUN 18 H (7-17) mg/dL Glucose 161 H (74-99) mg/dL POC Glucose (mg/dL) 199 H (75-99) mg/dL Hemoglobin A1c (4.2-6.1) % C-Reactive Protein (<10.0) mg/L Prealbumin (18.0-42.0) mg/dL Microbiology - Last 24 Hours (Table) 08/08/17 08:40 Gram Stain - Preliminary Ankle - Right Wound Culture - Preliminary Presumptive Staph aureus 08/08/17 14:03 Blood Culture Gram Stain - Preliminary Blood 08/08/17 14:03 Blood Culture - Final Blood 08/08/17 11:22 Blood Culture Gram Stain - Preliminary Blood 08/08/17 11:22 Blood Culture - Final Blood 08/07/17 18:48 Blood Culture Gram Stain - Preliminary Blood Blood Culture - Preliminary Presumptive Staph aureus 08/08/17 08:40 Anaerobic Culture - Preliminary Ankle - Right 08/07/17 18:48 Blood Culture - Final Blood Assessment and Plan Plan: #Right ankle wound with cellulitis and sepsis associated with right trimalleolar fracture - IV fluids -Vanco and ceftazidime -Infectious disease recommendations appreciated -Ortho recommendations appreciated -Vascular surgery recommendations appreciated patient with BKA versus AKA depending on angiogram. - MRI pending #Gram-positive bacteremia -Continue vancomycin -Infectious disease recommendations appreciated - Echocardiogram ordered -Repeat blood cultures in a.m. 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 DVT prophylaxis: Lovenox Discussed with: Patient, family, nursing Anticipated discharge: 5-[address]: [facility] A total of 45 minutes was spent on the care of this complex patient more than 50 % of the time was spent in counseling and care coordination.
[2017-08-09] MEDS: POTASSIUM CHLORIDE 10 MEQ in WATER FOR INJECTION 1 100ML.BAG IVPB SCH ×4 (11:34→15:01)
[2017-08-09] MEDS: POTASSIUM CHLORIDE ER 20 MEQ TAB.ER PO SCH ×2 (11:36→12:45)
--- NOTE | 2017-08-09 12:51 | ECHOF ---
Referral Reason:bacteremia, endocarditis MEASUREMENTS -------- HEIGHT: 165.1 cm WEIGHT: 68.0 kg BP: 101/65 IVSd: 1.3 cm (0.6 - 1.1) LVIDd: 4.7 cm (3.9 - 5.3) LVPWd: 1.3 cm (0.6 - 1.1) IVSs: 1.4 cm LVIDs: 4.1 cm LVPWs: 0.9 cm LA Diam: 3.5 cm (2.7 - 3.8) Ao Diam: 3.4 cm (2.0 - 3.7) AV Cusp: 2.0 cm (1.5 - 2.6) LA Diam: 4.1 cm (2.7 - 3.8) MV EXCURSION: 15.618 mm (> 18.000) MV EF SLOPE: 129 mm/s (70 - 150) EPSS: 0.2 cm MV E Kike: 0.79 m/s MV DecT: 176 ms MV A Kike: 0.57 m/s MV E/A Ratio: 1.40 RAP: 5.00 mmHg RVSP: 29.09 mmHg FINDINGS -------- Sinus rhythm. This was a technically adequate study. The left ventricular size is normal. There is mild concentric left ventricular hypertrophy. Overall left ventricular systolic function is normal with, an EF between 55 - 60 %. The right ventricle is normal in size. The left atrial size is normal. The right atrial size is normal. The aortic valve is trileaflet, and appears structurally normal. No aortic stenosis or regurgitation. Mild mitral regurgitation is present. Mild tricuspid regurgitation present. There is no evidence of pulmonary hypertension. The right ventricular systolic pressure, as measured by Doppler, is 29.09mmHg. Trace/mild (physiologic) pulmonic regurgitation. The aortic root size is normal. There is no pericardial effusion. CONCLUSIONS -------- 1. The left ventricular size is normal. 2. The aortic root size is normal. 3. There is no pericardial effusion. 4. There is mild concentric left ventricular hypertrophy. 5. Overall left ventricular systolic function is normal with, an EF between 55 - 60 %. 6. The aortic valve is trileaflet, and appears structurally normal. No aortic stenosis or regurgitation. 7. Mild mitral regurgitation is present. 8. Mild tricuspid regurgitation present. 9. There is no evidence of pulmonary hypertension. 10. The right ventricular systolic pressure, as measured by Doppler, is 29.09mmHg. 11. Trace/mild (physiologic) pulmonic regurgitation. MEDICAL APPARATUS MODEL MAKER: Rosa Friedman RDCS
[2017-08-09 13:56] VITALS: BMI 24.2
[2017-08-09 16:39] LABS: Glucose,Whole Blood 258 mg/dL (75-99)
[2017-08-09] MEDS ORDERED: INSULIN LISPRO (humaLOG) 300 UNIT/3 ML VIAL SQ ONE (17:48)
[2017-08-09] MEDS: NICOTINE 14MG/24HR PATCH TRANSDERM SCH (17:56)
--- NOTE | 2017-08-09 19:36 | PN ---
PROGRESS NOTE A 56-year-old female with right foot fracture. For the past 1 month, the patient has a large wound on the lateral aspect of the ankle. Culture came back as a presumption of Staph aureus. The patient was seen by Dr. Gentry Berg and has ordered an MRI of the right foot. The patient also under care of Orthopedics. Femorals are 1+ PT by the Doppler. Large wound on the lateral aspect of the ankle. Patient discussed all options with the family. I will discuss with Dr. Berg and we will give the recommendation, follow with you. MMODL / IJN: [id number] /
[2017-08-09 20:09] LABS: Glucose,Whole Blood 244 mg/dL (75-99)
[2017-08-09] MEDS ORDERED: INSULIN DETEMIR 100 UNIT/ML 10 ML VIAL SQ SCH (21:00)
--- NOTE | 2017-08-09 21:22 | P.PN ---
Subjective Principal diagnosis: Sepsis 56-year-old female, originally from [place], presents the emergency center for increasing difficulties with her right ankle. On July 04 she did present to the emergency center with deformity to her ankle. She has a long- standing history of rheumatoid arthritis and some neuropathy. However due to dyspnea and change of her ankle in June she presented to emergency center and was sent to orthopedics. At that time she was placed into a specialty boot and was asking follow-up. Apparently in the meantime she developed a significant ulceration to the lateral surface of the ankle that has now been draining purulent material. Ankles become considerably more swollen. It's deformity has increased. The patient herself became quite ill with fevers and chills. Because of the acute change of her status she was brought back to the emergency center and admitted. With evidence of sepsis and bacteremia the infectious diseases consultation was requested. Of note the current x-rays reveal evidence of some further destruction to the ankle consistent with an acute infectious process. The patient does feel slightly better today. Eating some soup that her daughter has brought for her. The patient has been seen by orthopedics as well as vascular surgery. Apparently the ankle joint is grossly destroyed without any orthopedic fixation being possible. Although blood cultures are still positive at this point in time with staph aureus. Echocardiogram performed without evidence of endocarditis. Objective - Vital Signs Vital signs: Vital Signs Temp 97.3 F L 08/09/17 15:00 Pulse 80 08/09/17 15:41 Resp 16 08/09/17 15:00 BP 104/55 08/09/17 15:00 Pulse Ox 98 08/09/17 15:00 Intake & Output 08/09/17 08/09/17 08/10/17 06:59 18:59 06:59 Intake Total 750 1000 Balance 750 1000 Weight 68.039 kg Intake: IV 1000 Sodium Chloride 0.9% 1, 1000 000 ml @ 125 mls/hr IV . Q8H [facility] Rx#:[id number] Intake, IV Titration 250 Amount Vancomycin 1,250 mg In 250 Sodium Chloride 0.9% 250 ml @ 125 mls/hr IVPB Q12H [facility] Rx#:[id number] Oral 500 Other: # Voids 1 2 - Exam 56-year-old woman who is modestly comfortable at this time. But does relate to significant discomfort to the right ankle. She denying fever, chills at this time HEENT: Anicteric conjunctiva are pink and moist nasal mucosa grossly intact without significant lesions, there is no thrush. Neck: The neck is supple without significant lymphadenopathy or thyromegaly. Lungs: There is symmetrical air entry. Heart: Regular rate and rhythm with an audible S1-S2, no S3 no S4. There is no significant murmur click or rub, PMI was nondisplaced. Abdomen: Positive bowel sounds soft and nontender without palpable masses or organomegaly. There was no guarding or rebound. Extremities: The upper extremities have excellent pulses they are symmetric, no significant petechiae or telangiectasia. No splinter hemorrhages were noted. The left lower extremity is without acute abnormalities except for changes of rheumatoid arthritis. Right lower extremity versus the marked deformity to the ankle. There is evidence of a ulceration that has necrotic material extruding from it. There is significant warmth and erythema to the tissue. With a marked deformity no attempt for range of motion was made. Does appear to have intact sensation over the toes. There is palpable dorsalis pedis pulse. Neuro she is awake alert oriented to person place and time and has no new acute gross focal sensory motor deficits - Labs CBC & Chem 7: 08/09/17 06:45 08/09/17 06:45 Labs: Abnormal Lab Results - Last 24 Hours (Table) 08/08/17 08/09/17 08/09/17 Range/Units 07:42 06:45 06:45 RBC 3.40 L (3.80-5.40) m/uL Hgb 10.5 L (11.4-16.0) gm/dL MCV 103.7 H (80.0-100.0) fL MCHC 29.9 L (31.0-37.0) g/dL RDW 16.4 H (11.5-15.5) % Neutrophils # 7.9 H (1.3-7.7) k/uL Lymphocytes # 0.4 L (1.0-4.8) k/uL Potassium (3.5-5.1) mmol/L Chloride (98-107) mmol/L Carbon Dioxide (22-30) mmol/L BUN (7-17) mg/dL Glucose (74-99) mg/dL POC Glucose (mg/dL) (75-99) mg/dL Prealbumin 14.0 L (18.0-42.0) mg/dL TSH 0.155 L (0.465-4.680) mIU/L 08/09/17 08/09/17 08/09/17 Range/Units 06:45 06:59 11:07 RBC (3.80-5.40) m/uL Hgb (11.4-16.0) gm/dL MCV (80.0-100.0) fL MCHC (31.0-37.0) g/dL RDW (11.5-15.5) % Neutrophils # (1.3-7.7) k/uL Lymphocytes # (1.0-4.8) k/uL Potassium 3.0 L* (3.5-5.1) mmol/L Chloride 117 H (98-107) mmol/L Carbon Dioxide 19 L (22-30) mmol/L BUN 18 H (7-17) mg/dL Glucose 161 H (74-99) mg/dL POC Glucose (mg/dL) 199 H 210 H (75-99) mg/dL Prealbumin (18.0-42.0) mg/dL TSH (0.465-4.680) mIU/L 08/09/17 08/09/17 Range/Units 16:28 20:00 RBC (3.80-5.40) m/uL Hgb (11.4-16.0) gm/dL MCV (80.0-100.0) fL MCHC (31.0-37.0) g/dL RDW (11.5-15.5) % Neutrophils # (1.3-7.7) k/uL Lymphocytes # (1.0-4.8) k/uL Potassium (3.5-5.1) mmol/L Chloride (98-107) mmol/L Carbon Dioxide (22-30) mmol/L BUN (7-17) mg/dL Glucose (74-99) mg/dL POC Glucose (mg/dL) 258 H 244 H (75-99) mg/dL Prealbumin (18.0-42.0) mg/dL TSH (0.465-4.680) mIU/L Microbiology - Last 24 Hours (Table) 08/08/17 11:22 Blood Culture Gram Stain - Final Blood 08/08/17 14:03 Blood Culture Gram Stain - Final Blood 08/07/17 18:48 Blood Culture Gram Stain - Preliminary Blood Blood Culture - Preliminary Presumptive Staph aureus 08/07/17 18:48 Blood Culture - Final Blood 08/08/17 08:40 Gram Stain - Preliminary Ankle - Right Wound Culture - Preliminary Presumptive Staph aureus 08/08/17 14:03 Blood Culture - Final Blood 08/08/17 11:22 Blood Culture - Final Blood Laboratory Results WBC 8.7 k/uL (3.8-10.6) 08/09/17 06:45 RBC 3.40 m/uL (3.80-5.40) L 08/09/17 06:45 Hgb 10.5 gm/dL (11.4-16.0) L 08/09/17 06:45 Hct 35.3 % (34.0-46.0) 08/09/17 06:45 MCV 103.7 fL (80.0-100.0) H 08/09/17 06:45 MCH 31.0 pg (25.0-35.0) 08/09/17 06:45 MCHC 29.9 g/dL (31.0-37.0) L 08/09/17 06:45 RDW 16.4 % (11.5-15.5) H 08/09/17 06:45 Plt Count 169 k/uL (150-450) 08/09/17 06:45 Neutrophils % 91 % 08/09/17 06:45 Lymphocytes % 4 % 08/09/17 06:45 Monocytes % 4 % 08/09/17 06:45 Eosinophils % 0 % 08/09/17 06:45 Basophils % 0 % 08/09/17 06:45 Neutrophils # 7.9 k/uL (1.3-7.7) H 08/09/17 06:45 Lymphocytes # 0.4 k/uL (1.0-4.8) L 08/09/17 06:45 Monocytes # 0.4 k/uL (0-1.0) 08/09/17 06:45 Eosinophils # 0.0 k/uL (0-0.7) 08/09/17 06:45 Basophils # 0.0 k/uL (0-0.2) 08/09/17 06:45 Hypochromasia Moderate 08/09/17 06:45 Anisocytosis Slight 08/09/17 06:45 Macrocytosis Moderate 08/09/17 06:45 ESR 41 mm/hr (0-20) H 08/08/17 07:42 Sample Site rrad 08/08/17 10:47 ABG pH 7.27 (7.35-7.45) L 08/08/17 10:47 ABG pCO2 36 mmHg (35-45) 08/08/17 10:47 ABG pO2 74 mmHg (83-108) L 08/08/17 10:47 ABG HCO3 16 mmol/L (21-25) L 08/08/17 10:47 ABG Total CO2 17 mmol/L (19-24) L 08/08/17 10:47 ABG O2 Saturation 93.0 % (94-97) L 08/08/17 10:47 ABG Base Excess -10.0 mmol/L 08/08/17 10:47 FiO2 21 % 08/08/17 10:47 Sodium 144 mmol/L (137-145) 08/09/17 06:45 Potassium 3.0 mmol/L (3.5-5.1) L* 08/09/17 06:45 Chloride 117 mmol/L (98-107) H 08/09/17 06:45 Carbon Dioxide 19 mmol/L (22-30) L 08/09/17 06:45 Anion Gap 8 mmol/L 08/09/17 06:45 BUN 18 mg/dL (7-17) H 08/09/17 06:45 Creatinine 0.97 mg/dL (0.52-1.04) 08/09/17 06:45 Est GFR (MDRD) Af Amer >60 (>60 ml/min/1.73 sqM) 08/09/17 06:45 Est GFR (MDRD) Non-Af 60 (>60 ml/min/1.73 sqM) 08/09/17 06:45 Glucose 161 mg/dL (74-99) H 08/09/17 06:45 POC Glucose (mg/dL) 244 mg/dL (75-99) H 08/09/17 20:00 POC Glu Admeasurer CHRISTIAN Alejandra Sutton 08/09/17 20:[address] Glu mg/dL 140 mg/dL 08/08/17 07:42 Hemoglobin A1c 6.5 % (4.2-6.1) H 08/08/17 07:42 Plasma Lactic Acid Al 1.1 mmol/L (0.7-2.0) 08/08/17 08:20 Calcium 8.6 mg/dL (8.4-10.2) 08/09/17 06:45 Total Bilirubin 0.5 mg/dL (0.2-1.3) 08/08/17 07:42 AST 12 U/L (14-36) L 08/08/17 07:42 ALT 27 U/L (9-52) 08/08/17 07:42 Alkaline Phosphatase 212 U/L (38-126) H 08/08/17 07:42 C-Reactive Protein 324.2 mg/L (<10.0) H 08/08/17 07:42 Total Protein 5.2 g/dL (6.3-8.2) L 08/08/17 07:42 Albumin 2.6 g/dL (3.5-5.0) L 08/08/17 07:42 Prealbumin 14.0 mg/dL (18.0-42.0) L 08/08/17 07:42 Vitamin B12 610 pg/mL (239-931) 08/09/17 06:45 TSH 0.155 mIU/L (0.465-4.680) L 08/09/17 06:45 Free T4 1.01 ng/dL (0.78-2.19) 08/09/17 06:45 Microbiology 08/08/17 11:22 Blood Blood Culture Gram Stain - Final 08/08/17 14:03 Blood Blood Culture Gram Stain - Final 08/07/17 18:48 Blood Blood Culture Gram Stain - Preliminary 08/07/17 18:48 Blood Blood Culture - Preliminary Presumptive Staph aureus 08/07/17 18:48 Blood Blood Culture - Final 08/08/17 08:40 Ankle - Right Gram Stain - Preliminary 08/08/17 08:40 Ankle - Right Wound Culture - Preliminary Presumptive Staph aureus 08/08/17 14:03 Blood Blood Culture - Final 08/08/17 11:22 Blood Blood Culture - Final 08/08/17 08:40 Ankle - Right Anaerobic Culture - Preliminary Assessment and Plan (1) Cellulitis and abscess of right leg Status: Acute (2) Trimalleolar fracture of ankle, open Status: Acute (3) Sepsis Narrative/Plan: 56-year-old woman presents to hospital with increasing difficulties related to her right ankle. She presented emergency center on 07/04/2017 at which point in time there is evidence of a trimalleolar fracture. She was placed into mobilization and referred to orthopedics. She's been in immobilization since that time. However is developed a significant ulceration to the lateral aspect of the ankle with grossly necrotic material. The foot has become quite swollen especially at the ankle with significant and gross deformity. There is erythema and purulent drainage. This has been cultured. Blood cultures are also positive at this point in time. Both the wound and blood cultures appear to be staph aureus. She does have a history of MRSA. Constantly vancomycin therapy is utilize. Until cultures are finalized antibiotic therapy is also enhance with ceftazidime with her history of prior acientobacter infection. Follow blood cultures are been requested Further imaging to the joint has been requested. She may require extensive surgical debridement to the area. If this is refractory infection she may be a candidate for hyperbaric oxygen therapy. Orthopedic foot and ankle evaluation could be helpful. Echocardiogram has been performed. No evidence of endocarditis The significant leukocytosis to related to her sepsis Orthopedics is requested a vascular surgery consult also to ensure the adequacy of her vascular structure with his gross deformity and history of tobacco use. He has noted angiography has been requested. This will help determine the next surgical intervention which could be a [id number] amputation. We'll do some follow blood culture to see if her bacteremia has cleared, source is the grossly infected ankle. Status: Acute (4) Septic arthritis of right ankle Status: Acute
[2017-08-10] MEDS: SODIUM CHLORIDE 0.9% 1,000 ML IV SCH (04:43)
[2017-08-10] MEDS ORDERED: VANCOMYCIN TROUGH DUE 1 EACH MISC MISCELLANE ONE (05:00)
[2017-08-10 05:33] LABS: Anisocytosis Slight; Basophils % (A) 0 %; CH 31.9; CHCM 30.8; Eosinophils % (A) 0 %; HCT 36.3 % (34.0-46.0); HDW 2.75; HGB 11.1 gm/dL (11.4-16.0); Hypochromasia Moderate; Luc # (Auto) 0.05; Luc % (Auto) 1; Lymphocytes # (A) 0.3 k/uL (1.0-4.8); Lymphocytes % (A) 4 %; MCH 31.8 pg (25.0-35.0); MCHC 30.5 g/dL (31.0-37.0); MCV 104.3 fL (80.0-100.0); Macrocytosis Moderate; Monocytes # (A) 0.2 k/uL (0-1.0); Monocytes % (A) 3 %; Neutrophils # (A) 6.6 k/uL (1.3-7.7); Neutrophils % (A) 92 %; RBC 3.48 m/uL (3.80-5.40); RDW 16.5 % (11.5-15.5); WBC 7.2 k/uL (3.8-10.6); WBC (Perox) 8.02
[2017-08-10 05:51] LABS: Anion Gap 9 mmol/L; Blood Urea Nitrogen 19 mg/dL (7-17); Carbon Dioxide 17 mmol/L (22-30); Chloride 118 mmol/L (98-107); Glucose 142 mg/dL (74-99); Non-African American GFR(MDRD) >60 (>60 ml/min/1.73 sqM); Potassium 3.1 mmol/L (3.5-5.1); Sodium 144 mmol/L (137-145)
[2017-08-10] MEDS: VANCOMYCIN 1,250 MG in SODIUM CHLORIDE 0.9% 250 ML IVPB SCH (06:10)
[2017-08-10 06:59] LABS: Glucose,Whole Blood 139 mg/dL (75-99)
[2017-08-10] MEDS: IPRATROPIUM-ALBUTEROL 3 ML NEB INHALATION SCH ×4 (07:28→19:55)
[2017-08-10] MEDS: INSULIN LISPRO (humaLOG) 300 UNIT/3 ML VIAL SQ SCH ×4 (07:57→21:16)
[2017-08-10] MEDS: ENOXAPARIN 40 MG/0.4 ML SYRINGE SQ SCH (08:00)
[2017-08-10] MEDS: HYDROCORTISONE SUCCINATE 100 MG/2 ML VIAL IV SCH ×3 (08:00→23:35)
[2017-08-10] MEDS: THIAMINE 100 MG TAB PO SCH (08:07)
[2017-08-10] MEDS: FOLIC ACID 1 MG TAB PO SCH (08:07)
[2017-08-10] MEDS: HYDROXYCHLOROQUINE SULFATE 200 MG TAB PO SCH (08:07)
[2017-08-10] MEDS: GABAPENTIN 300 MG CAP PO SCH ×3 (08:07→21:16)
[2017-08-10] MEDS: NICOTINE 14MG/24HR PATCH TRANSDERM SCH (08:07)
[2017-08-10] MEDS: FAMOTIDINE 20 MG TAB PO SCH ×2 (08:07→21:16)
[2017-08-10] MEDS: MULTIVITAMINS, THERA 1 EACH TAB PO SCH (08:08)
[2017-08-10] MEDS: DULoxetine HCL 60 MG CAPSULE.DR PO SCH (08:08)
[2017-08-10] MEDS: METOPROLOL SUCCINATE (ER) 50 MG TAB.ER.24H PO SCH (08:08)
--- NOTE | 2017-08-10 08:52 | P.PN ---
Subjective Principal diagnosis: Critical fracture, cellulitis, wound infection This is a 56-year-old female admitted for right ankle fracture, cellulitis and wound infection. Patient has a history of neuropathy and rheumatoid arthritis. Patient states her pain is under control. Patient has no new complaints today and denies fever/chills, nausea/vomiting. Objective - Vital Signs Vital signs: Vital Signs Temp 97.5 F L 08/10/17 00:20 Pulse 84 08/10/17 07:38 Resp 16 08/10/17 00:20 BP 142/76 08/10/17 00:20 Pulse Ox 99 08/10/17 00:20 Intake & Output 08/09/17 08/10/17 08/10/17 18:59 06:59 18:59 Intake Total 1000 Balance 1000 Weight 68.039 kg Intake: IV 1000 Sodium Chloride 0.9% 1, 1000 000 ml @ 125 mls/hr IV . Q8H [facility] Rx#:[id number] Other: Voiding Method Bedpan # Voids 2 1 - Exam On exam of the right lower extremity there is some deformity of the ankle. There is necrotic ulceration of the heel. There is significant soft tissue swelling and erythema. The wound over the lateral malleolus is covered with a dressing, no drainage present currently. Patient has limited range of motion of the foot and ankle due to fracture and swelling. - Labs CBC & Chem 7: 08/10/17 05:15 08/10/17 05:15 Labs: Abnormal Lab Results - Last 24 Hours (Table) 08/09/17 08/09/17 08/09/17 Range/Units 06:45 06:45 06:45 RBC (3.80-5.40) m/uL Hgb (11.4-16.0) gm/dL MCV (80.0-100.0) fL MCHC (31.0-37.0) g/dL RDW (11.5-15.5) % Lymphocytes # (1.0-4.8) k/uL Potassium 3.0 L* (3.5-5.1) mmol/L Chloride 117 H (98-107) mmol/L Carbon Dioxide 19 L (22-30) mmol/L BUN 18 H (7-17) mg/dL Glucose 161 H (74-99) mg/dL POC Glucose (mg/dL) (75-99) mg/dL RBC Folate 960 H (280 - 791) ng/mL TSH 0.155 L (0.465-4.680) mIU/L 08/09/17 08/09/17 08/09/17 Range/Units 11:07 16:28 20:00 RBC (3.80-5.40) m/uL Hgb (11.4-16.0) gm/dL MCV (80.0-100.0) fL MCHC (31.0-37.0) g/dL RDW (11.5-15.5) % Lymphocytes # (1.0-4.8) k/uL Potassium (3.5-5.1) mmol/L Chloride (98-107) mmol/L Carbon Dioxide (22-30) mmol/L BUN (7-17) mg/dL Glucose (74-99) mg/dL POC Glucose (mg/dL) 210 H 258 H 244 H (75-99) mg/dL RBC Folate (280 - 791) ng/mL TSH (0.465-4.680) mIU/L 08/10/17 08/10/17 08/10/17 Range/Units 05:15 05:15 06:55 RBC 3.48 L (3.80-5.40) m/uL Hgb 11.1 L (11.4-16.0) gm/dL MCV 104.3 H (80.0-100.0) fL MCHC 30.5 L (31.0-37.0) g/dL RDW 16.5 H (11.5-15.5) % Lymphocytes # 0.3 L (1.0-4.8) k/uL Potassium 3.1 L (3.5-5.1) mmol/L Chloride 118 H (98-107) mmol/L Carbon Dioxide 17 L (22-30) mmol/L BUN 19 H (7-17) mg/dL Glucose 142 H (74-99) mg/dL POC Glucose (mg/dL) 139 H (75-99) mg/dL RBC Folate (280 - 791) ng/mL TSH (0.465-4.680) mIU/L Microbiology - Last 24 Hours (Table) 08/08/17 14:03 Blood Culture Gram Stain - Preliminary Blood Blood Culture - Preliminary Presumptive Staph aureus 08/08/17 11:22 Blood Culture Gram Stain - Preliminary Blood Blood Culture - Preliminary Presumptive Staph aureus 08/07/17 18:48 Blood Culture Gram Stain - Preliminary Blood Blood Culture - Preliminary Presumptive Staph aureus 08/07/17 18:48 Blood Culture - Final Blood 08/08/17 08:40 Gram Stain - Preliminary Ankle - Right Wound Culture - Preliminary Presumptive Staph aureus 08/08/17 14:03 Blood Culture - Final Blood Assessment and Plan (1) Cellulitis Status: Acute (2) Infected wound Status: Acute (3) Sepsis Status: Acute (4) Trimalleolar fracture of ankle, open Status: Acute Plan: #1. Nonweightbearing to the right lower extremity. #2. Appreciate input from infectious disease and vascular surgery. Awaiting angiogram to assess vascular status of the right lower extremity. #3. Appreciate input from medicine. #4. IV antibiotics per infectious disease. #7. MRI right ankle shows no evidence for osteomyelitis. #8. Will continue to follow the patient closely.
--- NOTE | 2017-08-10 10:59 | P.PN ---
Subjective Principal diagnosis: right foot wound Patient is a 56-year-old female with history of neuropathy, rheumatoid arthritis who was taken off steroids approximately one week ago, hypertension, and tobacco abuse who presented at the direction of the physician captain's assistant from her orthopedic office due to drainage on the right lateral malleoli. In the emergency department she underwent an extensive evaluation. She was found to have a right ankle wound with surrounding cellulitis and sepsis. She was started on Vanco, Zosyn, and IV fluids. She was admitted to the general medical floor for further monitoring and care. She was seen by orthopedics who recommended vascular consult for possible amputation. She had 1 set of blood cultures come back positive. She was continued on vancomycin. Infectious diseases consult the change her Zosyn to ceftazidime. She had recently come off oral steroids and started to appear adrenal insufficient was placed on stress dose steroids due to low blood pressures despite fluid resuscitation. MRI was done which did not demonstrate any evidence of osteomyelitis. She was seen by vascular who recommended angiogram and then possible BKA versus AKA. Echocardiogram was ordered to check status for possible infective endocarditis and was negative. Her blood sugars started to elevate secondary to steroid use and she was placed on insulin sliding scale. Hemoglobin A1c was done which was 6.5 and she was instructed on diabetic diet. By 08/10 her blood pressure has greatly improved and her steroids were cut in half. She had not had a bowel movement in 5 days and was placed on stool softeners. Patient seen and examined at bedside. She still has not a bowel movement, it has been 5 days since her last one. Denies any chest pain, shortness of breath , nausea, or vomiting. She states she feels sleepy today. Family is concerned about her having dark urine. Family at bedside and all questions answered. Objective - Vital Signs Vital signs: Vital Signs Temp 97.4 F L 08/10/17 07:00 Pulse 84 08/10/17 07:38 Resp 17 08/10/17 07:00 BP 154/74 08/10/17 07:00 Pulse Ox 98 08/10/17 07:00 Intake & Output 08/09/17 08/10/17 08/10/17 18:59 06:59 18:59 Intake Total 1000 Balance 1000 Weight 68.039 kg Intake: IV 1000 Sodium Chloride 0.9% 1, 1000 000 ml @ 125 mls/hr IV . Q8H [facility] Rx#:[id number] Other: Voiding Method Bedpan # Voids 2 1 - Exam General: Ill appearing, toxic, appears at stated age Derm: Right ankle with dressing in place, no other rashes noted Head: atraumatic, normocephalic, symmetric Eyes: EOMI, no lid lag, anicteric sclera ENT: no post nasal drip, no thrush Mouth: no lip lesion, mucus membranes moist Cardiovascular: S1S2 reg, no murmur, decreased posterior tibial and dorsalis pedis pulses bilaterally, Lungs: Decreased breath sounds bilateral, no rhonchi, no rales , no accessory muscle use Abdominal: soft, nontender to palpation, no guarding, no appreciable organomegaly Ext: no gross muscle atrophy, edema right ankle, no contractures Neuro: CN II-XI grossly intact, no focal neuro deficits Psych: Alert, oriented, appropriate affect - Labs CBC & Chem 7: 08/10/17 05:15 08/10/17 05:15 Labs: Abnormal Lab Results - Last 24 Hours (Table) 08/09/17 08/09/17 08/09/17 Range/Units 06:45 06:45 11:07 RBC (3.80-5.40) m/uL Hgb (11.4-16.0) gm/dL MCV (80.0-100.0) fL MCHC (31.0-37.0) g/dL RDW (11.5-15.5) % Lymphocytes # (1.0-4.8) k/uL Potassium (3.5-5.1) mmol/L Chloride (98-107) mmol/L Carbon Dioxide (22-30) mmol/L BUN (7-17) mg/dL Glucose (74-99) mg/dL POC Glucose (mg/dL) 210 H (75-99) mg/dL RBC Folate 960 H (280 - 791) ng/mL TSH 0.155 L (0.465-4.680) mIU/L 08/09/17 08/09/17 08/10/17 Range/Units 16:28 20:00 05:15 RBC 3.48 L (3.80-5.40) m/uL Hgb 11.1 L (11.4-16.0) gm/dL MCV 104.3 H (80.0-100.0) fL MCHC 30.5 L (31.0-37.0) g/dL RDW 16.5 H (11.5-15.5) % Lymphocytes # 0.3 L (1.0-4.8) k/uL Potassium (3.5-5.1) mmol/L Chloride (98-107) mmol/L Carbon Dioxide (22-30) mmol/L BUN (7-17) mg/dL Glucose (74-99) mg/dL POC Glucose (mg/dL) 258 H 244 H (75-99) mg/dL RBC Folate (280 - 791) ng/mL TSH (0.465-4.680) mIU/L 08/10/17 08/10/17 Range/Units 05:15 06:55 RBC (3.80-5.40) m/uL Hgb (11.4-16.0) gm/dL MCV (80.0-100.0) fL MCHC (31.0-37.0) g/dL RDW (11.5-15.5) % Lymphocytes # (1.0-4.8) k/uL Potassium 3.1 L (3.5-5.1) mmol/L Chloride 118 H (98-107) mmol/L Carbon Dioxide 17 L (22-30) mmol/L BUN 19 H (7-17) mg/dL Glucose 142 H (74-99) mg/dL POC Glucose (mg/dL) 139 H (75-99) mg/dL RBC Folate (280 - 791) ng/mL TSH (0.465-4.680) mIU/L Microbiology - Last 24 Hours (Table) 08/07/17 18:48 Blood Culture Gram Stain - Final Blood Blood Culture - Final Staph aureus 08/08/17 14:03 Blood Culture Gram Stain - Preliminary Blood Blood Culture - Preliminary Presumptive Staph aureus 08/08/17 11:22 Blood Culture Gram Stain - Preliminary Blood Blood Culture - Preliminary Presumptive Staph aureus 08/07/17 18:48 Blood Culture - Final Blood 08/08/17 08:40 Gram Stain - Preliminary Ankle - Right Wound Culture - Preliminary Presumptive Staph aureus Assessment and Plan Plan: #Right ankle wound with cellulitis and sepsis associated with right trimalleolar fracture - IV fluids -Vanco and ceftazidime -Infectious disease recommendations appreciated -Ortho recommendations appreciated -Vascular surgery recommendations appreciated patient with BKA versus AKA depending on angiogram to be done once infection better. - MRI without osteo #Gram-positive bacteremia -Continue vancomycin -Infectious disease recommendations appreciated - Echocardiogram negative -Repeat blood cultures 08/10 pending #New-onset diabetes mellitus -Hemoglobin A1c 6.5 -Continue a sliding scale insulin secondary to IV steroids -Likely have oral medications on discharge -Diabetic education # adrenal insufficiency from chronic steroid use -1/2 stress dose steroids -continue insulin sliding scale and blood sugar monitoring #Suspect clinical COPD with acute exacerbation -Breathing treatments -Pulmonary hygiene -Steroids #Moderate protein calorie malnutrition -Encouraged healthy diet -Supplementation #Macrocytosis -TSH B12 and folic acid normal #Neuropathy -gabapentin #Hypokalemia -Replace and recheck in a.m. #Non-anion gap hyperchloremic metabolic acidosis -Switch from normal saline to lactated Ringer's DVT prophylaxis: Lovenox Discussed with: Patient, family Anticipated discharge: 5-[address]: SNF A total of 35 minutes was spent on the care of this complex patient more than 50 % of the time was spent in counseling and care coordination.
[2017-08-10 11:38] LABS: Glucose,Whole Blood 139 mg/dL (75-99)
[2017-08-10] MEDS ORDERED: DOCUSATE 100 MG CAP PO PRN (12:08)
[2017-08-10] MEDS: POTASSIUM CHLORIDE 10 MEQ, LIDOCAINE 2% INJ 10 MG in SODIUM CHLORIDE 0.9% 100 ML IVPB SCH ×4 (12:54→22:35)
[2017-08-10] MEDS: ceFAZolin 2 GM in SODIUM CHLORIDE 0.9% 100 ML IVPB SCH ×3 (12:57→23:35)
[2017-08-10] MEDS: traMADol 50 MG TAB PO PRN (14:11)
[2017-08-10] MEDS: LACOSAMIDE 50 MG TABLET PO SCH (14:34)
[2017-08-10 16:40] LABS: Glucose,Whole Blood 175 mg/dL (75-99)
[2017-08-10] MEDS: LACTATED RINGERS 1,000 ML IV SCH ×2 (16:51→18:58)
[2017-08-10] MEDS: POLYETHYLENE GLYCOL 3350 17 GM POWD.PACK PO SCH (16:51)
[2017-08-10 20:30] LABS: Glucose,Whole Blood 134 mg/dL (75-99)
[2017-08-10] MEDS: MORPHINE SULFATE 4 MG/ML SYRINGE IV PRN (21:14)
--- NOTE | 2017-08-10 22:12 | P.PN ---
Subjective Principal diagnosis: Sepsis 56-year-old female, originally from [place], presents the emergency center for increasing difficulties with her right ankle. On July 04 she did present to the emergency center with deformity to her ankle. She has a long- standing history of rheumatoid arthritis and some neuropathy. However due to dyspnea and change of her ankle in June she presented to emergency center and was sent to orthopedics. At that time she was placed into a specialty boot and was asking follow-up. Apparently in the meantime she developed a significant ulceration to the lateral surface of the ankle that has now been draining purulent material. Ankles become considerably more swollen. It's deformity has increased. The patient herself became quite ill with fevers and chills. Because of the acute change of her status she was brought back to the emergency center and admitted. With evidence of sepsis and bacteremia the infectious diseases consultation was requested. Of note the current x-rays reveal evidence of some further destruction to the ankle consistent with an acute infectious process. The patient does feel slightly better today. Eating some soup that her daughter has brought for her. The patient has been seen by orthopedics as well as vascular surgery. Apparently the ankle joint is grossly destroyed without any orthopedic fixation being possible. blood cultures are still positive at this point in time with staph aureus. Echocardiogram performed without evidence of endocarditis. Case is discussed with the vascular surgeon. Objective - Vital Signs Vital signs: Vital Signs Temp 97.0 F L 08/10/17 20:00 Pulse 82 08/10/17 20:05 Resp 18 08/10/17 20:00 BP 149/89 08/10/17 20:00 Pulse Ox 97 08/10/17 20:00 Intake & Output 08/10/17 08/10/17 08/11/17 06:59 18:59 06:59 Intake Total 500 Balance 500 Intake: IV 500 Sodium Chloride 0.9% 1, 500 000 ml @ 125 mls/hr IV . Q8H [facility] Rx#:[id number] Other: Voiding Method Bedpan # Voids 1 - Exam 56-year-old woman who is modestly comfortable at this time. But does relate to significant discomfort to the right ankle. She denying fever, chills at this time HEENT: Anicteric conjunctiva are pink and moist nasal mucosa grossly intact without significant lesions, there is no thrush. Neck: The neck is supple without significant lymphadenopathy or thyromegaly. Lungs: There is symmetrical air entry. Heart: Regular rate and rhythm with an audible S1-S2, no S3 no S4. There is no significant murmur click or rub, PMI was nondisplaced. Abdomen: Positive bowel sounds soft and nontender without palpable masses or organomegaly. There was no guarding or rebound. Extremities: The upper extremities have excellent pulses they are symmetric, no significant petechiae or telangiectasia. No splinter hemorrhages were noted. The left lower extremity is without acute abnormalities except for changes of rheumatoid arthritis. Right lower extremity versus the marked deformity to the ankle. There is evidence of a ulceration that has necrotic material extruding from it. There is significant warmth and erythema to the tissue. With a marked deformity no attempt for range of motion was made. Does appear to have intact sensation over the toes. There is palpable dorsalis pedis pulse. Neuro she is awake alert oriented to person place and time and has no new acute gross focal sensory motor deficits - Labs CBC & Chem 7: 08/10/17 05:15 08/10/17 17:51 Labs: Abnormal Lab Results - Last 24 Hours (Table) 08/09/17 08/10/17 08/10/17 Range/Units 06:45 05:15 05:15 RBC 3.48 L (3.80-5.40) m/uL Hgb 11.1 L (11.4-16.0) gm/dL MCV 104.3 H (80.0-100.0) fL MCHC 30.5 L (31.0-37.0) g/dL RDW 16.5 H (11.5-15.5) % Lymphocytes # 0.3 L (1.0-4.8) k/uL Potassium 3.1 L (3.5-5.1) mmol/L Chloride 118 H (98-107) mmol/L Carbon Dioxide 17 L (22-30) mmol/L BUN 19 H (7-17) mg/dL Glucose 142 H (74-99) mg/dL POC Glucose (mg/dL) (75-99) mg/dL RBC Folate 960 H (280 - 791) ng/mL 08/10/17 08/10/17 08/10/17 Range/Units 06:55 11:28 16:36 RBC (3.80-5.40) m/uL Hgb (11.4-16.0) gm/dL MCV (80.0-100.0) fL MCHC (31.0-37.0) g/dL RDW (11.5-15.5) % Lymphocytes # (1.0-4.8) k/uL Potassium (3.5-5.1) mmol/L Chloride (98-107) mmol/L Carbon Dioxide (22-30) mmol/L BUN (7-17) mg/dL Glucose (74-99) mg/dL POC Glucose (mg/dL) 139 H 139 H 175 H (75-99) mg/dL RBC Folate (280 - 791) ng/mL 08/10/17 08/10/17 Range/Units 17:51 20:28 RBC (3.80-5.40) m/uL Hgb (11.4-16.0) gm/dL MCV (80.0-100.0) fL MCHC (31.0-37.0) g/dL RDW (11.5-15.5) % Lymphocytes # (1.0-4.8) k/uL Potassium 3.1 L (3.5-5.1) mmol/L Chloride (98-107) mmol/L Carbon Dioxide (22-30) mmol/L BUN (7-17) mg/dL Glucose (74-99) mg/dL POC Glucose (mg/dL) 134 H (75-99) mg/dL RBC Folate (280 - 791) ng/mL Microbiology - Last 24 Hours (Table) 08/08/17 08:40 Anaerobic Culture - Preliminary Ankle - Right 08/08/17 08:40 Gram Stain - Final Ankle - Right Wound Culture - Final Staphylococcus aureus 08/07/17 18:48 Blood Culture Gram Stain - Final Blood Blood Culture - Final Staph aureus 08/08/17 14:03 Blood Culture Gram Stain - Preliminary Blood Blood Culture - Preliminary Presumptive Staph aureus 08/08/17 11:22 Blood Culture Gram Stain - Preliminary Blood Blood Culture - Preliminary Presumptive Staph aureus Laboratory Results WBC 7.2 k/uL (3.8-10.6) 08/10/17 05:15 RBC 3.48 m/uL (3.80-5.40) L 08/10/17 05:15 Hgb 11.1 gm/dL (11.4-16.0) L 08/10/17 05:15 Hct 36.3 % (34.0-46.0) 08/10/17 05:15 MCV 104.3 fL (80.0-100.0) H 08/10/17 05:15 MCH 31.8 pg (25.0-35.0) 08/10/17 05:15 MCHC 30.5 g/dL (31.0-37.0) L 08/10/17 05:15 RDW 16.5 % (11.5-15.5) H 08/10/17 05:15 Plt Count 174 k/uL (150-450) 08/10/17 05:15 Neutrophils % 92 % 08/10/17 05:15 Lymphocytes % 4 % 08/10/17 05:15 Monocytes % 3 % 08/10/17 05:15 Eosinophils % 0 % 08/10/17 05:15 Basophils % 0 % 08/10/17 05:15 Neutrophils # 6.6 k/uL (1.3-7.7) 08/10/17 05:15 Lymphocytes # 0.3 k/uL (1.0-4.8) L 08/10/17 05:15 Monocytes # 0.2 k/uL (0-1.0) 08/10/17 05:15 Eosinophils # 0.0 k/uL (0-0.7) 08/10/17 05:15 Basophils # 0.0 k/uL (0-0.2) 08/10/17 05:15 Hypochromasia Moderate 08/10/17 05:15 Anisocytosis Slight 08/10/17 05:15 Macrocytosis Moderate 08/10/17 05:15 ESR 41 mm/hr (0-20) H 08/08/17 07:42 Sample Site rrad 08/08/17 10:47 ABG pH 7.27 (7.35-7.45) L 08/08/17 10:47 ABG pCO2 36 mmHg (35-45) 08/08/17 10:47 ABG pO2 74 mmHg (83-108) L 08/08/17 10:47 ABG HCO3 16 mmol/L (21-25) L 08/08/17 10:47 ABG Total CO2 17 mmol/L (19-24) L 08/08/17 10:47 ABG O2 Saturation 93.0 % (94-97) L 08/08/17 10:47 ABG Base Excess -10.0 mmol/L 08/08/17 10:47 FiO2 21 % 08/08/17 10:47 Sodium 144 mmol/L (137-145) 08/10/17 05:15 Potassium 3.1 mmol/L (3.5-5.1) L 08/10/17 17:51 Chloride 118 mmol/L (98-107) H 08/10/17 05:15 Carbon Dioxide 17 mmol/L (22-30) L 08/10/17 05:15 Anion Gap 9 mmol/L 08/10/17 05:15 BUN 19 mg/dL (7-17) H 08/10/17 05:15 Creatinine 0.90 mg/dL (0.52-1.04) 08/10/17 05:15 Est GFR (MDRD) Af Amer >60 (>60 ml/min/1.73 sqM) 08/10/17 05:15 Est GFR (MDRD) Non-Af >60 (>60 ml/min/1.73 sqM) 08/10/17 05:15 Glucose 142 mg/dL (74-99) H 08/10/17 05:15 POC Glucose (mg/dL) 134 mg/dL (75-99) H 08/10/17 20:28 POC Glu Cash Posting Clerk ID April Rayo 08/10/17 20:[address] Glu mg/dL 140 mg/dL 08/08/17 07:42 Hemoglobin A1c 6.5 % (4.2-6.1) H 08/08/17 07:42 Plasma Lactic Acid Al 1.1 mmol/L (0.7-2.0) 08/08/17 08:20 Calcium 9.0 mg/dL (8.4-10.2) 08/10/17 05:15 Magnesium 2.0 mg/dL (1.6-2.3) 08/10/17 05:15 Total Bilirubin 0.5 mg/dL (0.2-1.3) 08/08/17 07:42 AST 12 U/L (14-36) L 08/08/17 07:42 ALT 27 U/L (9-52) 08/08/17 07:42 Alkaline Phosphatase 212 U/L (38-126) H 08/08/17 07:42 C-Reactive Protein 324.2 mg/L (<10.0) H 08/08/17 07:42 Total Protein 5.2 g/dL (6.3-8.2) L 08/08/17 07:42 Albumin 2.6 g/dL (3.5-5.0) L 08/08/17 07:42 Prealbumin 14.0 mg/dL (18.0-42.0) L 08/08/17 07:42 Vitamin B12 610 pg/mL (239-931) 08/09/17 06:45 RBC Folate 960 ng/mL (280 - 791) H 08/09/17 06:45 TSH 0.155 mIU/L (0.465-4.680) L 08/09/17 06:45 Free T4 1.01 ng/dL (0.78-2.19) 08/09/17 06:45 Vancomycin Trough 26.8 ug/mL 08/10/17 05:15 Microbiology 08/08/17 08:40 Ankle - Right Anaerobic Culture - Preliminary 08/08/17 08:40 Ankle - Right Gram Stain - Final 08/08/17 08:40 Ankle - Right Wound Culture - Final Staphylococcus aureus 08/07/17 18:48 Blood Blood Culture Gram Stain - Final 08/07/17 18:48 Blood Blood Culture - Final Staph aureus 08/08/17 14:03 Blood Blood Culture Gram Stain - Preliminary 08/08/17 14:03 Blood Blood Culture - Preliminary Presumptive Staph aureus 08/08/17 11:22 Blood Blood Culture Gram Stain - Preliminary 08/08/17 11:22 Blood Blood Culture - Preliminary Presumptive Staph aureus 08/07/17 18:48 Blood Blood Culture - Final 08/08/17 14:03 Blood Blood Culture - Final 08/08/17 11:22 Blood Blood Culture - Final Assessment and Plan (1) Cellulitis and abscess of right leg Status: Acute (2) Trimalleolar fracture of ankle, open Status: Acute (3) Sepsis Narrative/Plan: 56-year-old woman presents to hospital with increasing difficulties related to her right ankle. She presented emergency center on 07/04/2017 at which point in time there is evidence of a trimalleolar fracture. She was placed into mobilization and referred to orthopedics. She's been in immobilization since that time. However is developed a significant ulceration to the lateral aspect of the ankle with grossly necrotic material. The foot has become quite swollen especially at the ankle with significant and gross deformity. There is erythema and purulent drainage. This has been cultured. Blood cultures are also positive at this point in time. Both the wound and blood cultures appear to be staph aureus. She does have a history of MRSA. Constantly vancomycin therapy is utilize. Until cultures are finalized antibiotic therapy is also enhance with ceftazidime with her history of prior acientobacter infection. Follow blood cultures are been requested The care is discussed with vascular surgeon. Arteriography will be performed to evaluate the vascular status of the right lower extremity. Overall goal is to determine if she would be a candidate for a [id number] amputation which is likely needed in the near future because of her refractory infection and destruction of the right ankle. Echocardiogram has been performed. No evidence of endocarditis The significant leukocytosis to related to her sepsis We'll do some follow blood culture to see if her bacteremia has cleared, source is the grossly infected ankle. Cultures now finalized with MSSA and antimicrobial therapy alter to Ancef 2 g IV piggyback every 8 hours. Status: Acute (4) Septic arthritis of right ankle Status: Acute
[2017-08-11] MEDS: POTASSIUM CHLORIDE 10 MEQ, LIDOCAINE 2% INJ 10 MG in SODIUM CHLORIDE 0.9% 100 ML IVPB SCH ×4 (02:33→10:29)
[2017-08-11] MEDS: LACTATED RINGERS 1,000 ML IV SCH ×4 (04:54→23:14)
[2017-08-11 05:22] LABS: Basophils % (A) 0 %; CH 30.6; CHCM 29.2; Eosinophils % (A) 0 %; HCT 36.9 % (34.0-46.0); HDW 2.71; HGB 11.1 gm/dL (11.4-16.0); Hypochromasia Marked; Luc # (Auto) 0.09; Luc % (Auto) 1; Lymphocytes # (A) 0.6 k/uL (1.0-4.8); Lymphocytes % (A) 9 %; MCH 31.8 pg (25.0-35.0); MCHC 30.2 g/dL (31.0-37.0); MCV 105.2 fL (80.0-100.0); Macrocytosis Moderate; Mean Platelet Volume 7.5; Monocytes # (A) 0.3 k/uL (0-1.0); Monocytes % (A) 5 %; Neutrophils # (A) 5.7 k/uL (1.3-7.7); Neutrophils % (A) 85 %; RBC 3.51 m/uL (3.80-5.40); RDW 15.4 % (11.5-15.5); WBC 6.7 k/uL (3.8-10.6); WBC (Perox) 6.73
[2017-08-11 05:33] LABS: ALT 30 U/L (9-52); AST 17 U/L (14-36); Alkaline Phosphatase 168 U/L (38-126); Anion Gap 8 mmol/L; Blood Urea Nitrogen 18 mg/dL (7-17); Calcium 8.9 mg/dL (8.4-10.2); Carbon Dioxide 16 mmol/L (22-30); Glucose 122 mg/dL (74-99); Non-African American GFR(MDRD) >60 (>60 ml/min/1.73 sqM); Potassium 3.4 mmol/L (3.5-5.1); Sodium 144 mmol/L (137-145); Total Bilirubin 0.2 mg/dL (0.2-1.3); Total Protein 5.1 g/dL (6.3-8.2)
[2017-08-11 05:37] LABS: Chloride 120 mmol/L (98-107)
[2017-08-11 05:42] LABS: Appearance,Urine Clear (Clear); Bilirubin,Urine Negative (Negative); Glucose,Urine (UA) Negative (Negative); Ketones,Urine Negative (Negative); Leukocyte Esterase,Urine Negative (Negative); Nitrite,Urine Negative (Negative); Protein,Urine Trace (Negative); Specific Gravity,Urine 1.009 (1.001-1.035); UA Billing (MACRO vs. MICRO) CHEM; Urobilinogen,Urine <2.0 mg/dL (<2.0)
[2017-08-11] MEDS: IPRATROPIUM-ALBUTEROL 3 ML NEB INHALATION SCH ×4 (07:02→20:21)
[2017-08-11 07:10] LABS: Glucose,Whole Blood 104 mg/dL (75-99)
[2017-08-11] MEDS ORDERED: fentaNYL (PF) 50 MCG/ML 2 ML AMP IV ONE (07:28)
[2017-08-11] MEDS ORDERED: LIDOCAINE 2% INJ 20 MG/ML SQ ONE (07:32)
[2017-08-11] MEDS ORDERED: IODIXANOL 320 MG/ML 100 ML INTRAARTER ONE (07:51)
[2017-08-11] MEDS ORDERED: SODIUM CHLORIDE 0.9% 1,000 ML IV ONE (07:52)
--- NOTE | 2017-08-11 08:32 | IR ---
EXAMINATION TYPE: IR angio abdominal w runoff DATE OF EXAM: 08/11/2017 COMPARISON: NONE HISTORY: Peripheral vascular occlusive disease. Fluoroscopy was provided to the referring clinician. See dictated report from cardiology.
[2017-08-11] MEDS: ceFAZolin 2 GM in SODIUM CHLORIDE 0.9% 100 ML IVPB SCH ×3 (10:14→23:13)
--- NOTE | 2017-08-11 10:47 | P.PN ---
Subjective Principal diagnosis: right foot wound Patient is a 56-year-old female with history of neuropathy, rheumatoid arthritis who was taken off steroids approximately one week ago, hypertension, and tobacco abuse who presented at the direction of the physician billing assistant from her orthopedic office due to drainage on the right lateral malleoli. In the emergency department she underwent an extensive evaluation. She was found to have a right ankle wound with surrounding cellulitis and sepsis. She was started on Vanco, Zosyn, and IV fluids. She was admitted to the general medical floor for further monitoring and care. She was seen by orthopedics who recommended vascular consult for possible amputation. She had 1 set of blood cultures come back positive. She was continued on vancomycin. Infectious diseases consult the change her Zosyn to ceftazidime. She had recently come off oral steroids and started to appear adrenal insufficient was placed on stress dose steroids due to low blood pressures despite fluid resuscitation. MRI was done which did not demonstrate any evidence of osteomyelitis. She was seen by vascular who recommended angiogram and then possible BKA versus AKA. Echocardiogram was ordered to check status for possible infective endocarditis and was negative. Her blood sugars started to elevate secondary to steroid use and she was placed on insulin sliding scale. Hemoglobin A1c was done which was 6.5 and she was instructed on diabetic diet. By 08/10 her blood pressure has greatly improved and her steroids were cut in half. She had not had a bowel movement in 5 days and was placed on stool softeners. She went for an angiogram on 08/11 which demonsrated patent vessels and she was scheduled for a BKA Patient seen and examined at bedside in extended stay. She denies any groin discomfort, nausea, vomiting, chest pain, or shortness of breath. She is feeling slightly groggy. She denies any cough. Patient states that she had good functional capacity prior to developing her fracture. She was able to walk up a flight of stairs without chest pain or shortness of breath, but did have some difficulty secondary to her neuropathy and lower extremity weakness. She also states she could walk 3 city blocks without chest pain or dyspnea. She states that would've been difficult for her secondary to her lower extremity weakness. She denies any chest pain, cough, shortness of breath, lightheadedness, or syncopal episodes in the last 6 months. I do suspect the patient has underlying COPD which has not been diagnosed prior. EKG was reviewed by myself reveals normal sinus rhythm at a rate of 91 with normal intervals normal access and no ST-T wave changes. She is at an elevated, but not prohibitive risk for this non cardiac surgery. Objective - Vital Signs Vital signs: Vital Signs Temp 97.7 F 08/11/17 01:15 Pulse 96 08/11/17 08:20 Resp 17 08/11/17 01:15 BP 149/83 08/11/17 08:20 Pulse Ox 96 08/11/17 08:20 Intake & Output 08/10/17 08/11/17 08/11/17 18:59 06:59 18:59 Intake Total 500 50 Balance 500 50 Intake: IV 500 50 Sodium Chloride 0.9% 1, 500 000 ml @ 125 mls/hr IV . Q8H [facility] Rx#:[id number] Other: # Voids 1 - Exam General: Ill appearing, toxic, appears at stated age Derm: Right ankle with dressing in place, no other rashes noted Head: atraumatic, normocephalic, symmetric Eyes: EOMI, no lid lag, anicteric sclera ENT: no post nasal drip, no thrush Mouth: no lip lesion, mucus membranes moist Cardiovascular: S1S2 reg, no murmur, decreased posterior tibial and dorsalis pedis pulses bilaterally, Lungs: Decreased breath sounds bilateral, no rhonchi, no rales , no accessory muscle use Abdominal: soft, nontender to palpation, no guarding, no appreciable organomegaly Ext: no gross muscle atrophy, edema right ankle, no contractures Neuro: CN II-XI grossly intact, no focal neuro deficits Psych: Alert, oriented, appropriate affect - Labs CBC & Chem 7: 08/11/17 05:12 08/11/17 05:12 Labs: Abnormal Lab Results - Last 24 Hours (Table) 08/10/17 08/10/17 08/10/17 Range/Units 00:35 11: 16:36 RBC (3.80-5.40) m/uL Hgb (11.4-16.0) gm/dL MCV (80.0-100.0) fL MCHC (31.0-37.0) g/dL Lymphocytes # (1.0-4.8) k/uL Potassium (3.5-5.1) mmol/L Chloride (98-107) mmol/L Carbon Dioxide (22-30) mmol/L BUN (7-17) mg/dL Glucose (74-99) mg/dL POC Glucose (mg/dL) 139 H 175 H (75-99) mg/dL Alkaline Phosphatase (38-126) U/L Total Protein (6.3-8.2) g/dL Albumin (3.5-5.0) g/dL Urine Protein Trace H (Negative) 08/10/17 08/10/17 08/11/17 Range/Units 17:51 20:28 00:35 RBC (3.80-5.40) m/uL Hgb (11.4-16.0) gm/dL MCV (80.0-100.0) fL MCHC (31.0-37.0) g/dL Lymphocytes # (1.0-4.8) k/uL Potassium 3.1 L 3.2 L (3.5-5.1) mmol/L Chloride (98-107) mmol/L Carbon Dioxide (22-30) mmol/L BUN (7-17) mg/dL Glucose (74-99) mg/dL POC Glucose (mg/dL) 134 H (75-99) mg/dL Alkaline Phosphatase (38-126) U/L Total Protein (6.3-8.2) g/dL Albumin (3.5-5.0) g/dL Urine Protein (Negative) 08/11/17 08/11/17 08/11/17 Range/Units 05:12 05:12 07:04 RBC 3.51 L (3.80-5.40) m/uL Hgb 11.1 L (11.4-16.0) gm/dL MCV 105.2 H (80.0-100.0) fL MCHC 30.2 L (31.0-37.0) g/dL Lymphocytes # 0.6 L (1.0-4.8) k/uL Potassium 3.4 L (3.5-5.1) mmol/L Chloride 120 H* (98-107) mmol/L Carbon Dioxide 16 L (22-30) mmol/L BUN 18 H (7-17) mg/dL Glucose 122 H (74-99) mg/dL POC Glucose (mg/dL) 104 H (75-99) mg/dL Alkaline Phosphatase 168 H (38-126) U/L Total Protein 5.1 L (6.3-8.2) g/dL Albumin 2.4 L (3.5-5.0) g/dL Urine Protein (Negative) Microbiology - Last 24 Hours (Table) 08/10/17 05:15 Blood Culture - Preliminary Blood No Growth after 24 hours 08/10/17 05:25 Blood Culture - Preliminary Blood No Growth after 24 hours 08/08/17 14:03 Blood Culture Gram Stain - Final Blood Blood Culture - Final Staphylococcus aureus 08/08/17 11:22 Blood Culture Gram Stain - Final Blood Blood Culture - Final Staphylococcus aureus 08/10/17 05:25 Blood Culture Gram Stain - Preliminary Blood 08/08/17 08:40 Anaerobic Culture - Preliminary Ankle - Right 08/08/17 08:40 Gram Stain - Final Ankle - Right Wound Culture - Final Staphylococcus aureus 08/07/17 18:48 Blood Culture Gram Stain - Final Blood Blood Culture - Final Staph aureus Assessment and Plan Plan: #MSSA Right ankle wound with cellulitis and sepsis associated with right trimalleolar fracture - IV fluids -Ancef -Infectious disease recommendations appreciated -Ortho recommendations appreciated -Vascular surgery recommendations appreciated plan for BKA today - MRI without osteo #MSSA bacteremia - Ancef -Infectious disease recommendations appreciated - Echocardiogram negative -Repeat blood cultures 08/10 still positive will repeat on 08/12 #New-onset diabetes mellitus -Hemoglobin A1c 6.5 -Continue a sliding scale insulin secondary to IV steroids -Likely have oral medications on discharge -Diabetic education # adrenal insufficiency from chronic steroid use -increased hydrocortisone with OR today. -continue insulin sliding scale and blood sugar monitoring #Suspect clinical COPD with acute exacerbation -Breathing treatments -Pulmonary hygiene -Steroids #Moderate protein calorie malnutrition -Encouraged healthy diet -Supplementation #Macrocytosis -TSH B12 and folic acid normal #Neuropathy -gabapentin #Hypokalemia -Replace and recheck in a.m. #Non-anion gap hyperchloremic metabolic acidosis -Continue with LR DVT prophylaxis: Lovenox Discussed with: Patient, family Anticipated discharge: 5-[address]: [facility] A total of 35 minutes was spent on the care of this complex patient more than 50 % of the time was spent in counseling and care coordination. Patient states that she had good functional capacity prior to developing her fracture. She was able to walk up a flight of stairs without chest pain or shortness of breath, but did have some difficulty secondary to her neuropathy and lower extremity weakness. She also states she could walk 3 city blocks without chest pain or dyspnea. She states that would've been difficult for her secondary to her lower extremity weakness. She denies any chest pain, cough, shortness of breath, lightheadedness, or syncopal episodes in the last 6 months. I do suspect the patient has underlying COPD which has not been diagnosed prior. EKG was reviewed by myself reveals normal sinus rhythm at a rate of 91 with normal intervals normal access and no ST-T wave changes. She is at an elevated, but not prohibitive risk for this non cardiac surger
[2017-08-11] MEDS: POLYETHYLENE GLYCOL 3350 17 GM POWD.PACK PO SCH (11:01)
[2017-08-11] MEDS: MULTIVITAMINS, THERA 1 EACH TAB PO SCH (11:01)
[2017-08-11] MEDS: HYDROCORTISONE SUCCINATE 100 MG/2 ML VIAL IV SCH ×4 (11:17→23:13)
[2017-08-11] MEDS: DULoxetine HCL 60 MG CAPSULE.DR PO SCH (11:18)
[2017-08-11] MEDS: FAMOTIDINE 20 MG TAB PO SCH ×2 (11:19→21:29)
[2017-08-11] MEDS: METOPROLOL SUCCINATE (ER) 50 MG TAB.ER.24H PO SCH (11:20)
[2017-08-11] MEDS: GABAPENTIN 300 MG CAP PO SCH ×3 (11:21→21:29)
[2017-08-11] MEDS: HYDROXYCHLOROQUINE SULFATE 200 MG TAB PO SCH (11:23)
[2017-08-11] MEDS: INSULIN LISPRO (humaLOG) 300 UNIT/3 ML VIAL SQ SCH ×3 (11:27→20:18)
[2017-08-11 12:11] LABS: Glucose,Whole Blood 78 mg/dL (75-99)
--- NOTE | 2017-08-11 13:26 | PN ---
PROGRESS NOTE Patient has a chronic dislocation of the right ankle with large open wound. Patient is scheduled to have a right below-knee amputation today with angiogram. Patient has decent circulation. Patient is scheduled to have a right below-knee amputation. Discussed with Orthopedic and Infectious Disease. We all agreed this is a nonsalvageable foot. Risk and complications, bleeding, infection, thrombosis has been discussed. Patient understands. We will proceed. MMODL / IJN: [id number] /
--- NOTE | 2017-08-11 13:26 | PCN ---
PROCEDURE NOTE PREOPERATIVE DIAGNOSIS: Dislocation and fracture of the right ankle with chronic wound. PROCEDURE: Aortogram with runoff. This patient has history of fracture and dislocation of the right ankle. Patient developed large wound on the lateral aspect of the ankle which is infected. This patient has dislocation of the ankle joint under care of Orthopedics. Patient was consulted for vascular evaluation. Patient femoral was palpable. Posterior was not palpable. Patient has a large wound on the lateral aspect of the right ankle. The patient was brought to the optical laboratory technician and the right and left groins were prepped and draped in the usual sterile manner. One percent lidocaine was infiltrated in the left groin. Micropuncture was introduced technique into the left common femoral artery. Micropuncture guidewire was passed. A 4-[place] dilator advanced up guidewire. The guidewire was passed which was . The pigtail catheter was advanced on top of the guidewire and hooked to the power injector and aortogram flush was obtained. Both the renal arteries were visualized. Aorta was found to be patent. Both common iliacs were patent. Then the pigtail was kept at the renal level and both lower extremities were visualized by injecting the dye. Common femoral on the right side and left side were patent. Femoral artery, right and left femoral artery was patent. Superficial femoral artery, right and left was patent. Popliteal artery, the right and left popliteal artery was found to be patent. There was 2-vessel runoff all the way down to the foot. There was no hemodynamic stenosis noted. The catheter and sheath were removed. Pressure was held. Patient tolerated the procedure well. MMODL / IJN: [id number] /
[2017-08-11] MEDS ORDERED: IV FLUID CONTINUATION 700 ML IV ONE (13:37)
--- NOTE | 2017-08-11 15:46 | P.PN ---
Progress Note - Text 56-year-old white female, history of dislocation of the and fracture of the right ankle about a month ago patient was under care of orthopedic patient developed large wound on the lateral aspect of the ankle just infected patient also under care of Dr. Gentry Berg for IV antibiotic we did the angiogram today patient has a distant circulation below the knee discussed with Dr. Camacho ortiz of an Dr. Gentry Berg patient scheduled to have a right below-knee amputation discussed with the and the patient they all agree risk and complication bleeding infection nonhealing wound healing has been discussed we' ll proceed with surgery
--- NOTE | 2017-08-11 15:56 | P.CNPUL ---
History of Present Illness Consult date: 08/11/17 Requesting physician: Rowdy Ortiz Reason for consult: other (pre-op pulmonary clearance) Chief complaint: Preoperative pulmonary clearance right below the knee amputation History of present illness: This is a 56-year-old female with past medical history of rheumatoid arthritis, Raynaud's peripheral neuropathy, osteoarthritis, hypertension and MRSA infection, who presented to the emergency department on 08/07/2017 with right ankle wound with cellulitis and purulent drainage associated with right trimalleolar fracture for which she has been following with orthopedic surgery since 07/04/2017. Initially the fracture was reduced and splinted and she had been placed in the specialty boot but had developed significant ulceration to the lateral surface of the right ankle. The swelling in her ankles had increased as well as the deformity of the right ankle. The patient became quite ill with fevers and chills at which time she was brought in to the emergency department for evaluation and was subsequently admitted. Blood cultures and right ankle wound cultures were positive for Staphylococcus aureus , and infectious disease service is managing the antibiotics. X-ray of her right ankle from 08/07/2017 showed evidence of further destruction of the lateral dome of the talus and the possibility of septic arthritis and osteomyelitis could not be excluded. This was followed up with a MRI of the right ankle which did not demonstrate any evidence of osteomyelitis. Vascular surgery determined that the right foot was not salvageable related to gross destruction of the right ankle joint without the possibility of any orthopedic fixation. Pulmonary preop clearance was requested due to patient's smoking history and presumed COPD. On examination the patient is seen in the preop area , awake alert, appears chronically ill. She does complain of right ankle tenderness, but appears reasonably comfortable at the moment. She states she had never been diagnosed with COPD or any other chronic pulmonary conditions. She she had been a three-quarter to 1 pack a day smoker for the past 47 years. She is not on any inhalers or nebulizers at home. She states she is active on a regular basis without any significant limitation. No significant dyspnea on the day-to-day basis. No congestion, no wheezing, no cough. No active pulmonary symptoms. Lung sounds are clear, diminished at the bases. Patient is on room air with saturations around 93-96%. Review of Systems Constitutional: Denies chills, Denies fever Eyes: denies blurred vision, denies pain Ears, nose, mouth and throat: Denies headache, Denies sore throat Cardiovascular: Denies chest pain, Denies shortness of breath Respiratory: Denies cough Gastrointestinal: Denies abdominal pain, Denies diarrhea, Denies nausea, Denies vomiting Genitourinary: Denies dysuria, Denies hematuria Musculoskeletal: Denies myalgias Musculoskeletal: right: ankle pain, ankle swelling Integumentary: Reports wounds, Denies pruritus, Denies rash Neurological: Denies numbness, Denies weakness Psychiatric: Denies anxiety, Denies depression Endocrine: Denies fatigue, Denies weight change Past Medical History Past Medical History: Hypertension, Osteoarthritis (OA), Rheumatoid Arthritis ( RA) Additional Past Medical History / Comment(s): neuropathy Vitiligo, Raynaud's peripheral neuropathy. History of Any Multi-Drug Resistant Organisms: MRSA Date of last positivie culture/infection: 06/11/12 MDRO Source:: Unknown Past Surgical History: Appendectomy, Section, Joint Replacement, Orthopedic Surgery, Tonsillectomy, Tubal Ligation Additional Past Surgical History / Comment(s): right shoulder replacement Past Anesthesia/Blood Transfusion Reactions: No Reported Reaction Past Psychological History: Depression Additional Psychological History / Comment(s): . Originally from [place] has been here for many years. Does not work outside of the home. Ongoing tobacco use and daily alcohol use. No recent travel. No animal exposures Smoking Status: Current every day smoker Past Alcohol Use History: Occasional Past Drug Use History: None Reported - Past Family History Mother Family Medical History: No Reported History, Diabetes Mellitus, Hyperlipidemia, Hypertension Father Family Medical History: Diabetes Mellitus, Hypertension Sister(s) Family Medical History: No Reported History Son(s) Family Medical History: No Reported History Medications and Allergies Home Medications Medication Instructions Recorded Confirmed Type Omeprazole [PriLOSEC] 20 mg PO DAILY 02/06/16 08/07/17 History Hydroxychloroquine Sulfate 200 mg PO DAILY 06/12/16 08/07/17 History [Plaquenil] Metoprolol Succinate (ER) [Toprol 50 mg PO DAILY 06/13/16 08/07/17 History Xl] ALPRAZolam [Xanax] 0.5 mg PO DAILY PRN 12/19/16 08/07/17 History DULoxetine HCL [Cymbalta] 60 mg PO DAILY 12/19/16 08/07/17 History Lacosamide [Vimpat] 50 mg PO BID 12/19/16 08/07/17 History Ibuprofen [Motrin] 600 mg PO Q8HR PRN 07/04/17 08/07/17 History Folic Acid 1 mg PO DAILY 08/07/17 08/07/17 History Gabapentin [Neurontin] 300 mg PO TID 08/07/17 08/07/17 History Multivitamins, Thera [Multivitamin 1 tab PO DAILY 08/07/17 08/07/17 History (formulary)] Allergies Allergy/AdvReac Type Severity Reaction Status Date / Time No Known Allergies Allergy Verified 08/11/17 13:57 Physical Exam Vitals: Vital Signs Temp Pulse Pulse Pulse Resp BP BP 08/11/17 08:20 96 149/83 08/11/17 08:15 92 161/91 08/11/17 08:10 90 162/86 08/11/17 08:05 86 168/87 08/11/17 08:00 94 175/90 08/11/17 07:14 78 08/11/17 07:02 78 08/11/17 01:15 97.7 F 88 17 131/80 08/10/17 20:05 82 08/10/17 20:00 97 F L 88 18 149/89 08/10/17 19:59 82 08/10/17 14:32 97.6 F 88 16 136/83 Pulse Ox 08/11/17 08:20 96 08/11/17 08:15 94 L 08/11/17 08:10 93 L 08/11/17 08:05 96 08/11/17 08:00 96 08/11/17 07:14 08/11/17 07:02 08/11/17 01:15 98 08/10/17 20:05 08/10/17 20:00 97 08/10/17 19:59 08/10/17 14:32 Intake and Output 08/10/17 08/11/17 08/11/17 22:59 06:59 14:59 Intake Total 50 Balance 50 Intake: IV 50 Other: # Voids 1 1 - Constitutional 56-year-old female, appears older than stated age, chronically ill General appearance: average body habitus, cooperative, mild distress, thin - EENT Eyes: EOMI, PERRLA, normal appearance - Neck Neck: no lymphadenopathy Carotids: bilateral: upstroke normal Thyroid: bilateral: normal size - Respiratory Respiratory: bilateral: CTA, diminished (at bases) - Cardiovascular Rhythm: regular Heart sounds: normal: S1, S2 ankle Peripheral Edema: right: Trace dorsalis pedis Peripheral Pulses: bilateral: Normal radial pulse Peripheral Pulses: bilateral: Normal - Gastrointestinal General gastrointestinal: no organomegaly, soft, no tenderness - Integumentary Integumentary: normal, normal turgor, pale - Neurologic Neurologic: CNII-XII intact - Musculoskeletal Musculoskeletal: strength equal bilaterally - Psychiatric Psychiatric: A&O x's 3, appropriate affect, intact judgment & insight Results - Laboratory Findings CBC and BMP: 08/11/17 05:12 08/11/17 05:12 ABG ABG pH 7.27 (7.35-7.45) L 08/08/17 10:47 ABG pCO2 36 mmHg (35-45) 08/08/17 10:47 ABG pO2 74 mmHg (83-108) L 08/08/17 10:47 ABG O2 Saturation 93.0 % (94-97) L 08/08/17 10:47 Abnormal lab findings: Abnormal Labs 08/07/17 08/07/17 08/08/17 18:48 18:48 07:42 WBC 16.3 H RBC Hgb MCV 100.2 H 103.1 H MCHC 30.8 L 30.5 L RDW 16.1 H 16.2 H Neutrophils # 13.8 H 9.1 H Lymphocytes # 0.9 L ESR 41 H ABG pH ABG pO2 ABG HCO3 ABG Total CO2 ABG O2 Saturation Potassium 3.2 L Chloride Carbon Dioxide 21 L BUN Creatinine 1.05 H Glucose 136 H POC Glucose (mg/dL) Hemoglobin A1c AST Alkaline Phosphatase 281 H C-Reactive Protein Total Protein Albumin 3.4 L Prealbumin RBC Folate TSH Urine Protein 08/08/17 08/08/17 08/08/17 07:42 07:42 07:42 WBC RBC Hgb MCV MCHC RDW Neutrophils # Lymphocytes # ESR ABG pH ABG pO2 ABG HCO3 ABG Total CO2 ABG O2 Saturation Potassium Chloride 113 H Carbon Dioxide 18 L BUN Creatinine 1.12 H Glucose 140 H POC Glucose (mg/dL) Hemoglobin A1c 6.5 H AST 12 L Alkaline Phosphatase 212 H C-Reactive Protein 324.2 H Total Protein 5.2 L Albumin 2.6 L Prealbumin 14.0 L RBC Folate TSH Urine Protein 08/08/17 08/08/17 08/08/17 10:47 11:25 18:32 WBC RBC Hgb MCV MCHC RDW Neutrophils # Lymphocytes # ESR ABG pH 7.27 L ABG pO2 74 L ABG HCO3 16 L ABG Total CO2 17 L ABG O2 Saturation 93.0 L Potassium Chloride Carbon Dioxide BUN Creatinine Glucose POC Glucose (mg/dL) 183 H 190 H Hemoglobin A1c AST Alkaline Phosphatase C-Reactive Protein Total Protein Albumin Prealbumin RBC Folate TSH Urine Protein 08/08/17 08/09/17 08/09/17 20:29 06:45 06:45 WBC RBC 3.40 L Hgb 10.5 L MCV 103.7 H MCHC 29.9 L RDW 16.4 H Neutrophils # 7.9 H Lymphocytes # 0.4 L ESR ABG pH ABG pO2 ABG HCO3 ABG Total CO2 ABG O2 Saturation Potassium Chloride Carbon Dioxide BUN Creatinine Glucose POC Glucose (mg/dL) 173 H Hemoglobin A1c AST Alkaline Phosphatase C-Reactive Protein Total Protein Albumin Prealbumin RBC Folate 960 H TSH Urine Protein 08/09/17 08/09/17 08/09/17 06:45 06:45 06:59 WBC RBC Hgb MCV MCHC RDW Neutrophils # Lymphocytes # ESR ABG pH ABG pO2 ABG HCO3 ABG Total CO2 ABG O2 Saturation Potassium 3.0 L* Chloride 117 H Carbon Dioxide 19 L BUN 18 H Creatinine Glucose 161 H POC Glucose (mg/dL) 199 H Hemoglobin A1c AST Alkaline Phosphatase C-Reactive Protein Total Protein Albumin Prealbumin RBC Folate TSH 0.155 L Urine Protein 08/09/17 08/09/17 08/09/17 11:07 16:28 20:00 WBC RBC Hgb MCV MCHC RDW Neutrophils # Lymphocytes # ESR ABG pH ABG pO2 ABG HCO3 ABG Total CO2 ABG O2 Saturation Potassium Chloride Carbon Dioxide BUN Creatinine Glucose POC Glucose (mg/dL) 210 H 258 H 244 H Hemoglobin A1c AST Alkaline Phosphatase C-Reactive Protein Total Protein Albumin Prealbumin RBC Folate TSH Urine Protein 08/10/17 08/10/17 08/10/17 00:35 05:15 05:15 WBC RBC 3.48 L Hgb 11.1 L MCV 104.3 H MCHC 30.5 L RDW 16.5 H Neutrophils # Lymphocytes # 0.3 L ESR ABG pH ABG pO2 ABG HCO3 ABG Total CO2 ABG O2 Saturation Potassium 3.1 L Chloride 118 H Carbon Dioxide 17 L BUN 19 H Creatinine Glucose 142 H POC Glucose (mg/dL) Hemoglobin A1c AST Alkaline Phosphatase C-Reactive Protein Total Protein Albumin Prealbumin RBC Folate TSH Urine Protein Trace H 08/10/17 08/10/17 08/10/17 06:55 11:28 16:36 WBC RBC Hgb MCV MCHC RDW Neutrophils # Lymphocytes # ESR ABG pH ABG pO2 ABG HCO3 ABG Total CO2 ABG O2 Saturation Potassium Chloride Carbon Dioxide BUN Creatinine Glucose POC Glucose (mg/dL) 139 H 139 H 175 H Hemoglobin A1c AST Alkaline Phosphatase C-Reactive Protein Total Protein Albumin Prealbumin RBC Folate TSH Urine Protein 08/10/17 08/10/17 08/11/17 17:51 20:28 00:35 WBC RBC Hgb MCV MCHC RDW Neutrophils # Lymphocytes # ESR ABG pH ABG pO2 ABG HCO3 ABG Total CO2 ABG O2 Saturation Potassium 3.1 L 3.2 L Chloride Carbon Dioxide BUN Creatinine Glucose POC Glucose (mg/dL) 134 H Hemoglobin A1c AST Alkaline Phosphatase C-Reactive Protein Total Protein Albumin Prealbumin RBC Folate TSH Urine Protein 08/11/17 08/11/17 08/11/17 05:12 05:12 07:04 WBC RBC 3.51 L Hgb 11.1 L MCV 105.2 H MCHC 30.2 L RDW Neutrophils # Lymphocytes # 0.6 L ESR ABG pH ABG pO2 ABG HCO3 ABG Total CO2 ABG O2 Saturation Potassium 3.4 L Chloride 120 H* Carbon Dioxide 16 L BUN 18 H Creatinine Glucose 122 H POC Glucose (mg/dL) 104 H Hemoglobin A1c AST Alkaline Phosphatase 168 H C-Reactive Protein Total Protein 5.1 L Albumin 2.4 L Prealbumin RBC Folate TSH Urine Protein Assessment and Plan Plan: Assessment: #1. Acute trimalleolar fracture of ankle, open #2. Acute cellulitis and abscess of right lower extremity #3. Acute sepsis, blood and right lower extremity wound cultures positive for Staphylococcus aureus #4. Possible right ankle septic arthritis and osteomyelitis #5. History of chronic immunosuppression secondary to Plaquenil and prednisone therapy for her underlying rheumatoid arthritis #6. History of MRSA #7. Acute leukocytosis secondary to sepsis #8. Nonsalvageable right ankle joint, patient will undergo right below the knee amputation with Dr. Ortiz today #9. Ongoing nicotine dependence Plan: Patient currently has no active pulmonary complaints or processes. She does have [id number] history of smoking and ongoing tobacco use. She is active on a regular basis with no significant limitation in her functional status. Her lung sounds are clear, with no rhonchi, no wheezes. She is low operative risk and she is cleared for the right below the knee amputation surgery from pulmonary standpoint. Thank you for this consultation, we'll continue to follow with you. I performed a history & physical examination of the patient and discussed their management with my nurse practitioner, Radha Kruse. I reviewed the nurse practitioner's note and agree with the documented findings and plan of care.
[2017-08-11] MEDS ORDERED: ROCURONIUM BROMIDE 10 MG/ML 10 ML VIAL IV ONE (16:31)
[2017-08-11] MEDS ORDERED: ONDANSETRON 4 MG/2 ML VIAL ONE (16:31)
[2017-08-11] MEDS ORDERED: fentaNYL (PF) 50 MCG/ML 2 ML AMP ONE (16:31)
[2017-08-11] MEDS ORDERED: ePHEDrine SULFATE/0.9% NACL/PF 50 MG/5 ML SYRINGE IV ONE (16:31)
[2017-08-11] MEDS ORDERED: SUCCINYLCHOLINE CHLORIDE 100 MG/5 ML SYR IV ONE (16:31)
[2017-08-11] MEDS ORDERED: HYDROCORTISONE SUCCINATE 100 MG/2 ML VIAL ONE (16:31)
[2017-08-11] MEDS ORDERED: MIDAZOLAM 2 MG/2 ML VIAL ONE (16:31)
[2017-08-11] MEDS ORDERED: LIDOCAINE 1% INJ 10MG/ML (20 ML MDV) ONE (16:31)
[2017-08-11] MEDS ORDERED: PHENYLEPHRINE-0.9% NACL SYG 1 MG/10 ML SYRINGE ONE (16:31)
[2017-08-11] MEDS ORDERED: HYDROmorphone (PF) 1 MG/ML ONE (16:31)
[2017-08-11] MEDS ORDERED: PROPOFOL 10 MG/ML 20 ML VIAL IV ONE (16:31)
[2017-08-11] MEDS ORDERED: LACTATED RINGERS 1,000 ML IV ONE (17:23)
[2017-08-11 18:37] LABS: Glucose,Whole Blood 145 mg/dL (75-99)
[2017-08-11] MEDS ORDERED: HYDROmorphone 0.5 MG/0.5 ML SYRINGE IVP PRN (18:56)
[2017-08-11] MEDS: LACOSAMIDE 50 MG TABLET PO SCH (18:59)
[2017-08-11] MEDS: FOLIC ACID 1 MG TAB PO SCH (18:59)
[2017-08-11] MEDS: NICOTINE 14MG/24HR PATCH TRANSDERM SCH (18:59)
[2017-08-11] MEDS: THIAMINE 100 MG TAB PO SCH (19:00)
[2017-08-11 20:17] LABS: Glucose,Whole Blood 144 mg/dL (75-99)
[2017-08-11] MEDS: MORPHINE SULFATE 4 MG/ML SYRINGE IV PRN (22:24)
[2017-08-12] MEDS: MORPHINE SULFATE 4 MG/ML SYRINGE IV PRN ×2 (05:21→09:35)
[2017-08-12 07:46] LABS: Basophils % (A) 0 %; CH 30.7; CHCM 30.7; Eosinophils % (A) 0 %; HCT 30.4 % (34.0-46.0); HDW 2.79; Hypochromasia Moderate; Luc # (Auto) 0.12; Luc % (Auto) 2; Lymphocytes # (A) 0.6 k/uL (1.0-4.8); Lymphocytes % (A) 9 %; MCH 31.4 pg (25.0-35.0); MCHC 31.2 g/dL (31.0-37.0); MCV 100.6 fL (80.0-100.0); Macrocytosis Slight; Mean Platelet Volume 7.3; Monocytes # (A) 0.5 k/uL (0-1.0); Monocytes % (A) 7 %; Neutrophils # (A) 5.6 k/uL (1.3-7.7); Neutrophils % (A) 82 %; RBC 3.02 m/uL (3.80-5.40); RDW 15.3 % (11.5-15.5); WBC 6.9 k/uL (3.8-10.6); WBC (Perox) 7.51
[2017-08-12 07:49] LABS: HGB 9.5 gm/dL (11.4-16.0)
[2017-08-12 07:53] LABS: Glucose,Whole Blood 116 mg/dL (75-99)
[2017-08-12] MEDS: INSULIN LISPRO (humaLOG) 300 UNIT/3 ML VIAL SQ SCH ×4 (07:53→21:54)
[2017-08-12 08:07] LABS: Anion Gap 5 mmol/L; Blood Urea Nitrogen 16 mg/dL (7-17); Calcium 8.2 mg/dL (8.4-10.2); Carbon Dioxide 23 mmol/L (22-30); Chloride 116 mmol/L (98-107); Glucose 118 mg/dL (74-99); Non-African American GFR(MDRD) >60 (>60 ml/min/1.73 sqM); Sodium 144 mmol/L (137-145)
[2017-08-12 08:09] LABS: Potassium 2.6 mmol/L (3.5-5.1)
[2017-08-12] MEDS: IPRATROPIUM-ALBUTEROL 3 ML NEB INHALATION SCH ×4 (08:19→20:15)
[2017-08-12] MEDS ORDERED: POTASSIUM CHLORIDE ORAL LIQUID 40 MEQ/30 ML CUP PO ONE (08:30)
[2017-08-12] MEDS: ceFAZolin 2 GM in SODIUM CHLORIDE 0.9% 100 ML IVPB SCH ×3 (09:20→23:21)
[2017-08-12] MEDS: HYDROCORTISONE SUCCINATE 100 MG/2 ML VIAL IV SCH ×3 (09:22→23:21)
[2017-08-12] MEDS: POLYETHYLENE GLYCOL 3350 17 GM POWD.PACK PO SCH (09:22)
[2017-08-12] MEDS: ENOXAPARIN 40 MG/0.4 ML SYRINGE SQ SCH (09:22)
[2017-08-12] MEDS: HYDROXYCHLOROQUINE SULFATE 200 MG TAB PO SCH (09:23)
[2017-08-12] MEDS: FOLIC ACID 1 MG TAB PO SCH (09:23)
[2017-08-12] MEDS: NICOTINE 14MG/24HR PATCH TRANSDERM SCH (09:23)
[2017-08-12] MEDS: DULoxetine HCL 60 MG CAPSULE.DR PO SCH ×2 (09:23→17:14)
[2017-08-12] MEDS: GABAPENTIN 300 MG CAP PO SCH ×3 (09:23→21:53)
[2017-08-12] MEDS: FAMOTIDINE 20 MG TAB PO SCH ×2 (09:23→21:52)
[2017-08-12] MEDS: METOPROLOL SUCCINATE (ER) 50 MG TAB.ER.24H PO SCH (09:23)
[2017-08-12] MEDS: MULTIVITAMINS, THERA 1 EACH TAB PO SCH (09:25)
[2017-08-12] MEDS: LACOSAMIDE 50 MG TABLET PO SCH ×2 (09:28→17:15)
[2017-08-12] MEDS: POTASSIUM CHLORIDE 20 MEQ in WATER FOR INJECTION 1 100ML.BAG IVPB SCH ×3 (10:35→12:51)
--- NOTE | 2017-08-12 10:39 | PN ---
PROGRESS NOTE The patient had a right below-knee amputation done yesterday. Today is postop day 1. She is not in pain. Vital signs stable. Alert. Urine is excellent. Stump site dressing is dry and intact. PLAN: Plan is we will DC the Street catheter and will leave the dressing until Monday. Continue with IV antibiotic. The patient is not in much pain. MMODL / IJN: [id number] /
--- NOTE | 2017-08-12 10:51 | OP ---
OPERATIVE REPORT PREOP DIAGNOSIS: Infected right ankle joint with destruction of the joint with large wound on the lateral aspect of the ankle. OPERATION: Right below-knee amputation. ANESTHESIA: General. HISTORY: This patient is a 56-year-old female, she has been admitted to [facility]. She has a history of osteoarthritis of the ankle and she was seen by Orthopedics a month ago and placed on a orthopedic shoe and she has history of rheumatoid arthritis and neuropathy. The patient was under care of Dr. Alex Bell and discussed with Dr. Bell and Dr. Gentry Berg and the family and discussed this joint is destroyed and there was no indication for any surgical intervention. Patient and family and everybody agreed. DESCRIPTION OF PROCEDURE: The patient brought to the operating room. Right leg was prepped and draped in sterile manner. 6 inch incision was made for the anterior flap 6 inches from the tibial tuberosity. Deepened through skin, fat, and fascia. Extended posterior flap incision was made which was longer than the anterior flap incision was deepened through skin, fat, and fascia. There were multiple veins. The patient had some venous hypertension which were suture ligated. Then the attention was paid on the medial compartment of the muscles which were divided and tibial vessels were isolated and suture ligated with 3-0 Prolene and then the lateral compartment muscles were divided in the similar fashion and tibial vessel and veins were suture ligated. Then the periosteal elevator was used to raise the periosteum from the tibia and fibula. The tibia was divided with the electric saw and also the fibula which was divided shorter than the tibia and fibula was very osteoporotic. Then using hook bone we detected the tibia and fibula and the posterior flap was created. At this point, the specimen was removed and there was some muscular bleeding which was also controlled by suture ligation. The wound was copiously irrigated with hydrogen peroxide and saline. Then, tibia and fibula was covered by the anterior and posterior compartment muscles with 3-0 Vicryl and the fascia was approximated with 3-0 Vicryl interrupted suture. The incision was closed with 3-0 nylon in mattress interrupted sutures. Dressings applied and the patient tolerated the procedure well. MMODL / IJN: [id number] /
[2017-08-12 11:56] LABS: Glucose,Whole Blood 109 mg/dL (75-99)
[2017-08-12] MEDS: THIAMINE 100 MG TAB PO SCH ×2 (12:11→17:33)
--- NOTE | 2017-08-12 13:47 | P.PN ---
Subjective Principal diagnosis: Infected right ankle joint with destruction of the joint with large wound on the lateral aspect of the ankle. This is a 56-year-old female with past medical history of rheumatoid arthritis, Raynaud's peripheral neuropathy, osteoarthritis, hypertension and MRSA infection, who presented to the emergency department on 08/07/2017 with right ankle wound with cellulitis and purulent drainage associated with right trimalleolar fracture for which she has been following with orthopedic surgery since 07/04/2017. Initially the fracture was reduced and splinted and she had been placed in the specialty boot but had developed significant ulceration to the lateral surface of the right ankle. The swelling in her ankles had increased as well as the deformity of the right ankle. The patient became quite ill with fevers and chills at which time she was brought in to the emergency department for evaluation and was subsequently admitted. Blood cultures and right ankle wound cultures were positive for Staphylococcus aureus , and infectious disease service is managing the antibiotics. X-ray of her right ankle from 08/07/2017 showed evidence of further destruction of the lateral dome of the talus and the possibility of septic arthritis and osteomyelitis could not be excluded. This was followed up with a MRI of the right ankle which did not demonstrate any evidence of osteomyelitis. Vascular surgery determined that the right foot was not salvageable related to gross destruction of the right ankle joint without the possibility of any orthopedic fixation. Pulmonary preop clearance was requested due to patient's smoking history and presumed COPD. On examination the patient is seen in the preop area , awake alert, appears chronically ill. She does complain of right ankle tenderness, but appears reasonably comfortable at the moment. She states she had never been diagnosed with COPD or any other chronic pulmonary conditions. She she had been a three-quarter to 1 pack a day smoker for the past 47 years. She is not on any inhalers or nebulizers at home. She states she is active on a regular basis without any significant limitation. No significant dyspnea on the day-to-day basis. No congestion, no wheezing, no cough. No active pulmonary symptoms. Lung sounds are clear, diminished at the bases. Patient is on room air with saturations around 93-96%. The patient is seen today 08/12/2017 in follow-up on the surgical floor. She is status post right below the knee amputation. This is postoperative day #1. She is currently awake and alert in no acute distress. She has no pulmonary complaints. No shortness of breath, cough or congestion. She's been afebrile. She is maintaining O2 saturations up to 100% on 3 L/m per nasal cannula. She' s currently on cefazolin. Her wound and blood cultures were positive for methicillin sensitive Staphylococcus aureus. Objective - Vital Signs Vital signs: Vital Signs Temp 98.4 F 08/12/17 07:43 Pulse 76 08/12/17 12:14 Resp 16 08/12/17 07:43 BP 149/76 08/12/17 07:43 Pulse Ox 100 08/12/17 07:43 Intake & Output 08/11/17 08/12/17 08/12/17 18:59 06:59 18:59 Intake Total 650 1325 Output Total 2150 1300 Balance -1500 25 Weight 68.039 kg Intake: IV 650 100 Intake, IV Titration 1225 Amount Lactated Ringers 1,000 ml 1125 @ 125 mls/hr IV .Q8H RUBIA Rx#:[id number] ceFAZolin 2 gm In Sodium 100 Chloride 0.9% 100 ml @ 100 mls/hr IVPB Q8HR RUBIA Rx#:[id number] Output: Urine 1950 1300 Estimated Blood Loss 200 Other: Voiding Method Indwelling Catheter Indwelling Catheter - Exam GENERAL EXAM: Alert, active, comfortable in no apparent distress. HEAD: Normocephalic. EYES: Normal reaction of pupils, equal size. NOSE: Clear with pink turbinates. THROAT: No erythema or exudates. NECK: No masses, no JVD. CHEST: No chest wall deformity. LUNGS: Equal air entry with no crackles, wheeze, rhonchi or dullness. CVS: S1 and S2 normal with no audible murmurs, regular rhythm. ABDOMEN: No hepatosplenomegaly, normal bowel sounds, no guarding or rigidity. SPINE: No scoliosis or deformity SKIN: No rashes CENTRAL NERVOUS SYSTEM: No focal deficits, tone is normal in all 4 extremities. Extremities: Dressing to the right below the knee surgical site is clean and dry. Peripheral pulses are intact. - Labs CBC & Chem 7: 08/12/17 07:26 08/12/17 07:26 Labs: Abnormal Lab Results - Last 24 Hours (Table) 08/11/17 08/11/17 08/12/17 Range/Units 18:28 20:15 07:26 RBC 3.02 L (3.80-5.40) m/uL Hgb 9.5 L D (11.4-16.0) gm/dL Hct 30.4 L (34.0-46.0) % MCV 100.6 H (80.0-100.0) fL Lymphocytes # 0.6 L (1.0-4.8) k/uL Potassium (3.5-5.1) mmol/L Chloride (98-107) mmol/L Glucose (74-99) mg/dL POC Glucose (mg/dL) 145 H 144 H (75-99) mg/dL Calcium (8.4-10.2) mg/dL 08/12/17 08/12/17 08/12/17 Range/Units 07:26 07:36 11:45 RBC (3.80-5.40) m/uL Hgb (11.4-16.0) gm/dL Hct (34.0-46.0) % MCV (80.0-100.0) fL Lymphocytes # (1.0-4.8) k/uL Potassium 2.6 L* (3.5-5.1) mmol/L Chloride 116 H (98-107) mmol/L Glucose 118 H (74-99) mg/dL POC Glucose (mg/dL) 116 H 109 H (75-99) mg/dL Calcium 8.2 L (8.4-10.2) mg/dL Microbiology - Last 24 Hours (Table) 08/10/17 05:15 Blood Culture - Preliminary Blood No Growth after 48 hours 08/10/17 05:25 Blood Culture - Preliminary Blood No Growth after 48 hours 08/10/17 05:25 Blood Culture Gram Stain - Preliminary Blood Blood Culture - Preliminary Presumptive Staph aureus Assessment and Plan Plan: Assessment: #1. Acute trimalleolar fracture of ankle, open #2. Acute cellulitis and abscess of right lower extremity #3. Acute sepsis, blood and right lower extremity wound cultures positive for Staphylococcus aureus #4. Possible right ankle septic arthritis and osteomyelitis #5. History of chronic immunosuppression secondary to Plaquenil and prednisone therapy for her underlying rheumatoid arthritis #6. History of MRSA #7. Acute leukocytosis secondary to sepsis #8. Nonsalvageable right ankle joint, patient will undergo right below the knee amputation with Dr. Ortiz today #9. Ongoing nicotine dependence Plan: The patient was seen and evaluated by Dr. Palma. She is stable from the pulmonary standpoint. She is again educated regarding the importance of complete smoking cessation. A Habitrol patches in place. We'll continue with her bronchodilators and Solu-Cortef. She'll be educated regarding the use of the incentive spirometer and cough and deep breathing exercises. She is on Lovenox for DVT prophylaxis. Pepcid for GI prophylaxis. We'll continue to follow and make further recommendations based on her clinical status. I have completed a history and physical examination on the above patient. From the pulmonary standpoint her lungs are clear. Diminished. I agree with the note as dictated by my nurse practitioner, Maira Bustillos. We have reviewed and discussed the assessment and plan of care.
[2017-08-12] MEDS ORDERED: LACTULOSE 20 GM/30 ML CUP PO ONE (14:00)
[2017-08-12] MEDS ORDERED: NA PHOS,M-B/NA PHOS,DI-BA 133 ML ENEMA RECTAL PRN (14:09)
[2017-08-12] MEDS: LACTATED RINGERS 1,000 ML IV SCH ×2 (15:25→21:52)
[2017-08-12] MEDS: HYDROcodone/APAP 10-325MG 1 EACH TAB PO PRN ×2 (15:32→21:49)
--- NOTE | 2017-08-12 15:55 | P.PN ---
Subjective Principal diagnosis: right foot wound Patient is a 56-year-old female with history of neuropathy, rheumatoid arthritis who was taken off steroids approximately one week ago, hypertension, and tobacco abuse who presented at the direction of the physician home care assistant from her orthopedic office due to drainage on the right lateral malleoli. In the emergency department she underwent an extensive evaluation. She was found to have a right ankle wound with surrounding cellulitis and sepsis. She was started on Vanco, Zosyn, and IV fluids. She was admitted to the general medical floor for further monitoring and care. She was seen by orthopedics who recommended vascular consult for possible amputation. She had 1 set of blood cultures come back positive. She was continued on vancomycin. Infectious diseases consult the change her Zosyn to ceftazidime. She had recently come off oral steroids and started to appear adrenal insufficient was placed on stress dose steroids due to low blood pressures despite fluid resuscitation. MRI was done which did not demonstrate any evidence of osteomyelitis. She was seen by vascular who recommended angiogram and then possible BKA versus AKA. Echocardiogram was ordered to check status for possible infective endocarditis and was negative. Her blood sugars started to elevate secondary to steroid use and she was placed on insulin sliding scale. Hemoglobin A1c was done which was 6.5 and she was instructed on diabetic diet. By 08/10 her blood pressure has greatly improved and her steroids were cut in half. She had not had a bowel movement in 5 days and was placed on stool softeners. She went for an angiogram on 08/11 which demonsrated patent vessels and she was scheduled for a BKA. She underwent a BKA on 08/11 without significant complications. Patient seen and examined at bedside. She complains of burning and stinging pain where her leg is no longer. She denies any sharp or shooting pain. She states the morphine is not completely relieving her pain. She is having some intermittent nausea. She denies any chest pain or shortness of breath. She still has not had a bowel movement. Objective - Vital Signs Vital signs: Vital Signs Temp 98.4 F 08/12/17 07:43 Pulse 76 08/12/17 12:14 Resp 16 08/12/17 07:43 BP 149/76 08/12/17 07:43 Pulse Ox 100 08/12/17 07:43 Intake & Output 08/11/17 08/12/17 08/12/17 18:59 06:59 18:59 Intake Total 650 1325 Output Total 2150 1300 1500 Balance -1500 25 -1500 Weight 68.039 kg Intake: IV 650 100 Intake, IV Titration 1225 Amount Lactated Ringers 1,000 ml 1125 @ 125 mls/hr IV .Q8H [facility] Rx#:[id number] ceFAZolin 2 gm In Sodium 100 Chloride 0.9% 100 ml @ 100 mls/hr IVPB Q8HR [facility] Rx#:[id number] Output: Urine 1950 1300 1500 Uretheral (Street) 1500 Estimated Blood Loss 200 Other: Voiding Method Indwelling Catheter Indwelling Catheter - Exam General: Ill appearing, toxic, appears at stated age Derm: dressing in place over right stump Head: atraumatic, normocephalic, symmetric Eyes: EOMI, no lid lag, anicteric sclera ENT: no post nasal drip, no thrush Mouth: no lip lesion, mucus membranes moist Cardiovascular: S1S2 reg, no murmur, decreased posterior tibial and dorsalis pedis pulses bilaterally, Lungs: Clear to auscultation bilateral, no rhonchi, no rales , no accessory muscle use Abdominal: soft, nontender to palpation, no guarding, no appreciable organomegaly Ext: no gross muscle atrophy, edema right ankle, no contractures Neuro: CN II-XI grossly intact, no focal neuro deficits Psych: Alert, oriented, appropriate affect - Labs CBC & Chem 7: 08/12/17 07:26 08/12/17 07:26 Labs: Abnormal Lab Results - Last 24 Hours (Table) 08/11/17 08/11/17 08/12/17 Range/Units 18:28 20:15 07:26 RBC 3.02 L (3.80-5.40) m/uL Hgb 9.5 L D (11.4-16.0) gm/dL Hct 30.4 L (34.0-46.0) % MCV 100.6 H (80.0-100.0) fL Lymphocytes # 0.6 L (1.0-4.8) k/uL Potassium (3.5-5.1) mmol/L Chloride (98-107) mmol/L Glucose (74-99) mg/dL POC Glucose (mg/dL) 145 H 144 H (75-99) mg/dL Calcium (8.4-10.2) mg/dL 08/12/17 08/12/17 08/12/17 Range/Units 07:26 07:36 11:45 RBC (3.80-5.40) m/uL Hgb (11.4-16.0) gm/dL Hct (34.0-46.0) % MCV (80.0-100.0) fL Lymphocytes # (1.0-4.8) k/uL Potassium 2.6 L* (3.5-5.1) mmol/L Chloride 116 H (98-107) mmol/L Glucose 118 H (74-99) mg/dL POC Glucose (mg/dL) 116 H 109 H (75-99) mg/dL Calcium 8.2 L (8.4-10.2) mg/dL Microbiology - Last 24 Hours (Table) 08/08/17 08:40 Anaerobic Culture - Final Ankle - Right 08/10/17 05:15 Blood Culture - Preliminary Blood No Growth after 48 hours 08/10/17 05:25 Blood Culture - Preliminary Blood No Growth after 48 hours 08/10/17 05:25 Blood Culture Gram Stain - Preliminary Blood Blood Culture - Preliminary Presumptive Staph aureus Assessment and Plan Plan: #MSSA Right ankle wound with cellulitis and sepsis associated with right trimalleolar fracture s/p R BKA - Post op management per vascular - IV fluids -Ancef -Infectious disease recommendations appreciated -Ortho recommendations appreciated - MRI without osteo #Neuropathic pain R LE - Increase gabapentin - add norco - continue with dressings. #MSSA bacteremia - Ancef -Infectious disease recommendations appreciated - Echocardiogram negative -Repeat blood cultures 08/10 still positive will repeat on 08/12 #New-onset diabetes mellitus -Hemoglobin A1c 6.5 -Continue a sliding scale insulin secondary to IV steroids -Likely have oral medications on discharge -Diabetic education # adrenal insufficiency from chronic steroid use - 1/2 cortef today -continue insulin sliding scale and blood sugar monitoring #Suspect clinical COPD with acute exacerbation -Breathing treatments -Pulmonary hygiene -Steroids - pulm recs #Moderate protein calorie malnutrition -Encouraged healthy diet -Supplementation #Macrocytosis -TSH B12 and folic acid normal #Neuropathy -gabapentin #Hypokalemia -Replace and recheck in a.m. #Non-anion gap hyperchloremic metabolic acidosis -Continue with LR DVT prophylaxis: Lovenox Discussed with: Patient, family Anticipated discharge: 5-[address]: SNF A total of 35 minutes was spent on the care of this complex patient more than 50 % of the time was spent in counseling and care coordination.
[2017-08-12] MEDS ORDERED: HYDROCORTISONE SUCCINATE 100 MG/2 ML VIAL IV SCH (16:00)
[2017-08-12 16:28] LABS: Glucose,Whole Blood 166 mg/dL (75-99)
[2017-08-12 16:46] LABS: Anion Gap 8 mmol/L; Blood Urea Nitrogen 16 mg/dL (7-17); Calcium 8.5 mg/dL (8.4-10.2); Carbon Dioxide 23 mmol/L (22-30); Chloride 115 mmol/L (98-107); Glucose 167 mg/dL (74-99); Non-African American GFR(MDRD) >60 (>60 ml/min/1.73 sqM); Potassium 3.2 mmol/L (3.5-5.1); Sodium 146 mmol/L (137-145)
[2017-08-12] MEDS: POTASSIUM CHLORIDE ER 20 MEQ TAB.ER PO SCH ×3 (18:03→23:21)
[2017-08-12 20:05] LABS: Glucose,Whole Blood 197 mg/dL (75-99)
[2017-08-12] MEDS ORDERED: Potassium Replacement Protocol 1 EACH MISC MISCELLANE PRN (22:44)
[2017-08-13] MEDS: POTASSIUM CHLORIDE ER 20 MEQ TAB.ER PO SCH ×5 (00:28→14:49)
[2017-08-13] MEDS ORDERED: Potassium Replacement Protocol 1 EACH MISC MISCELLANE PRN ×2 (03:13→23:25)
[2017-08-13] MEDS: HYDROcodone/APAP 10-325MG 1 EACH TAB PO PRN ×3 (03:29→22:45)
[2017-08-13] MEDS: LACTATED RINGERS 1,000 ML IV SCH ×2 (03:39→15:18)
[2017-08-13 07:21] LABS: Glucose,Whole Blood 79 mg/dL (75-99)
[2017-08-13 07:45] LABS: Anisocytosis Slight; CH 31.5; CHCM 30.9; HCT 29.9 % (34.0-46.0); HDW 2.79; HGB 9.3 gm/dL (11.4-16.0); Hypochromasia Slight; MCH 32.1 pg (25.0-35.0); MCHC 31.2 g/dL (31.0-37.0); MCV 102.7 fL (80.0-100.0); Macrocytosis Moderate; Mean Platelet Volume 8.7; RBC 2.91 m/uL (3.80-5.40); RDW 16.2 % (11.5-15.5); WBC 7.7 k/uL (3.8-10.6)
[2017-08-13] MEDS: IPRATROPIUM-ALBUTEROL 3 ML NEB INHALATION SCH ×4 (07:56→20:24)
[2017-08-13 08:07] LABS: ALT 20 U/L (9-52); AST 15 U/L (14-36); Alkaline Phosphatase 114 U/L (38-126); Anion Gap 6 mmol/L; Blood Urea Nitrogen 15 mg/dL (7-17); Calcium 8.4 mg/dL (8.4-10.2); Carbon Dioxide 25 mmol/L (22-30); Chloride 116 mmol/L (98-107); Glucose 75 mg/dL (74-99); Non-African American GFR(MDRD) >60 (>60 ml/min/1.73 sqM); Potassium 3.2 mmol/L (3.5-5.1); Sodium 147 mmol/L (137-145); Total Bilirubin <0.1 mg/dL (0.2-1.3); Total Protein 4.7 g/dL (6.3-8.2)
[2017-08-13] MEDS: GABAPENTIN 300 MG CAP PO SCH ×3 (08:48→22:39)
[2017-08-13] MEDS: POLYETHYLENE GLYCOL 3350 17 GM POWD.PACK PO SCH (08:48)
[2017-08-13] MEDS: HYDROCORTISONE SUCCINATE 100 MG/2 ML VIAL IV SCH ×2 (08:49→16:04)
[2017-08-13] MEDS: NICOTINE 14MG/24HR PATCH TRANSDERM SCH (08:50)
[2017-08-13] MEDS: ENOXAPARIN 40 MG/0.4 ML SYRINGE SQ SCH (08:51)
[2017-08-13] MEDS: DULoxetine HCL 60 MG CAPSULE.DR PO SCH (08:51)
[2017-08-13] MEDS: HYDROXYCHLOROQUINE SULFATE 200 MG TAB PO SCH (08:51)
[2017-08-13] MEDS: FAMOTIDINE 20 MG TAB PO SCH ×2 (08:51→22:39)
[2017-08-13] MEDS: METOPROLOL SUCCINATE (ER) 50 MG TAB.ER.24H PO SCH (08:51)
[2017-08-13] MEDS: FOLIC ACID 1 MG TAB PO SCH (08:51)
[2017-08-13] MEDS: MULTIVITAMINS, THERA 1 EACH TAB PO SCH (08:52)
[2017-08-13] MEDS: LACOSAMIDE 50 MG TABLET PO SCH (08:59)
[2017-08-13] MEDS: INSULIN LISPRO (humaLOG) 300 UNIT/3 ML VIAL SQ SCH ×4 (09:23→22:40)
[2017-08-13] MEDS: ceFAZolin 2 GM in SODIUM CHLORIDE 0.9% 100 ML IVPB SCH ×2 (10:18→16:01)
[2017-08-13 12:01] LABS: Glucose,Whole Blood 98 mg/dL (75-99)
[2017-08-13] MEDS: THIAMINE 100 MG TAB PO SCH ×2 (14:50→18:20)
--- NOTE | 2017-08-13 14:59 | P.PN ---
Subjective Principal diagnosis: right foot wound Patient is a 56-year-old female with history of neuropathy, rheumatoid arthritis who was taken off steroids approximately one week ago, hypertension, and tobacco abuse who presented at the direction of the physician sound assistant from her orthopedic office due to drainage on the right lateral malleoli. In the emergency department she underwent an extensive evaluation. She was found to have a right ankle wound with surrounding cellulitis and sepsis. She was started on Vanco, Zosyn, and IV fluids. She was admitted to the general medical floor for further monitoring and care. She was seen by orthopedics who recommended vascular consult for possible amputation. She had 1 set of blood cultures come back positive. She was continued on vancomycin. Infectious diseases consult the change her Zosyn to ceftazidime. She had recently come off oral steroids and started to appear adrenal insufficient was placed on stress dose steroids due to low blood pressures despite fluid resuscitation. MRI was done which did not demonstrate any evidence of osteomyelitis. She was seen by vascular who recommended angiogram and then possible BKA versus AKA. Echocardiogram was ordered to check status for possible infective endocarditis and was negative. Her blood sugars started to elevate secondary to steroid use and she was placed on insulin sliding scale. Hemoglobin A1c was done which was 6.5 and she was instructed on diabetic diet. By 08/10 her blood pressure has greatly improved and her steroids were cut in half. She had not had a bowel movement in 5 days and was placed on stool softeners. She went for an angiogram on 08/11 which demonstrated patent vessels and she was scheduled for a BKA. She underwent a BKA on 08/11 without significant complications. She had struggled with constipation but this resolved with enema on 08/12. Her pain medications adjusted 08/12 with good response. Delayed charting patient seen at 1045 Patient seen and examined at bedside. Constipation resolved. The pain is much better controlled today. She is feeling better overall. She denies any chest pain, shortness of breath, nausea, or vomiting. She is tolerating her diet now. Daughter at bedside and all questions answered. Objective - Vital Signs Vital signs: Vital Signs Temp 98.1 F 08/13/17 07:00 Pulse 77 08/13/17 11:41 Resp 19 08/13/17 07:00 BP 181/85 08/13/17 07:00 Pulse Ox 99 08/13/17 07:58 Intake & Output 08/12/17 08/13/17 08/13/17 18:59 06:59 18:59 Intake Total 400 Output Total 1500 Balance -1100 Intake: Intake, IV Titration 400 Amount Lactated Ringers 1,000 ml 200 As IV .[facility] Rx#: [id number] Potassium Chloride 20 meq 200 In Water For Injection 1 100ml.bag @ 50 mls/hr IVPB Q2HR [facility] [place] Rx#: [id number] Output: Urine 1500 Uretheral (Street) 1500 Other: Voiding Method Indwelling Catheter # Voids 2 # Bowel Movements 0 1 - Exam General: No distress, non toxic, appears at stated age Derm: dressing in place over right stump Head: atraumatic, normocephalic, symmetric Eyes: EOMI, no lid lag, anicteric sclera ENT: no post nasal drip, no thrush Mouth: no lip lesion, mucus membranes moist Cardiovascular: S1S2 reg, no murmur, decreased posterior tibial and dorsalis pedis pulses bilaterally, Lungs: Clear to auscultation bilateral, no rhonchi, no rales , no accessory muscle use Abdominal: soft, nontender to palpation, no guarding, no appreciable organomegaly Ext: no gross muscle atrophy, edema right ankle, no contractures Neuro: CN II-XI grossly intact, no focal neuro deficits Psych: Alert, oriented, appropriate affect - Labs CBC & Chem 7: 08/13/17 06:53 08/13/17 07:04 Labs: Abnormal Lab Results - Last 24 Hours (Table) 08/12/17 08/12/17 08/12/17 Range/Units 16:09 16:26 20:02 RBC (3.80-5.40) m/uL Hgb (11.4-16.0) gm/dL Hct (34.0-46.0) % MCV (80.0-100.0) fL RDW (11.5-15.5) % Sodium 146 H (137-145) mmol/L Potassium 3.2 L (3.5-5.1) mmol/L Chloride 115 H (98-107) mmol/L Glucose 167 H (74-99) mg/dL POC Glucose (mg/dL) 166 H 197 H (75-99) mg/dL Total Bilirubin (0.2-1.3) mg/dL Total Protein (6.3-8.2) g/dL Albumin (3.5-5.0) g/dL 08/12/17 08/13/17 08/13/17 Range/Units 21:52 01:31 06:53 RBC 2.91 L (3.80-5.40) m/uL Hgb 9.3 L (11.4-16.0) gm/dL Hct 29.9 L (34.0-46.0) % MCV 102.7 H (80.0-100.0) fL RDW 16.2 H (11.5-15.5) % Sodium (137-145) mmol/L Potassium 3.1 L 3.2 L (3.5-5.1) mmol/L Chloride (98-107) mmol/L Glucose (74-99) mg/dL POC Glucose (mg/dL) (75-99) mg/dL Total Bilirubin (0.2-1.3) mg/dL Total Protein (6.3-8.2) g/dL Albumin (3.5-5.0) g/dL 08/13/17 Range/Units 07:04 RBC (3.80-5.40) m/uL Hgb (11.4-16.0) gm/dL Hct (34.0-46.0) % MCV (80.0-100.0) fL RDW (11.5-15.5) % Sodium 147 H (137-145) mmol/L Potassium 3.2 L (3.5-5.1) mmol/L Chloride 116 H (98-107) mmol/L Glucose (74-99) mg/dL POC Glucose (mg/dL) (75-99) mg/dL Total Bilirubin <0.1 L (0.2-1.3) mg/dL Total Protein 4.7 L (6.3-8.2) g/dL Albumin 2.3 L (3.5-5.0) g/dL Microbiology - Last 24 Hours (Table) 08/08/17 14:03 Blood Culture Gram Stain - Final Blood Blood Culture - Final Staphylococcus aureus 08/10/17 05:15 Blood Culture - Preliminary Blood No Growth after 72 hours 08/10/17 05:25 Blood Culture Gram Stain - Final Blood Blood Culture - Final Staphylococcus aureus 08/10/17 05:25 Blood Culture - Preliminary Blood 08/08/17 08:40 Anaerobic Culture - Final Ankle - Right Assessment and Plan Plan: #MSSA Right ankle wound with cellulitis and sepsis associated with right trimalleolar fracture s/p R BKA - Post op management per vascular - IV fluids completed -Ancef -Infectious disease recommendations appreciated -Ortho recommendations appreciated - MRI without osteo #Neuropathic pain R LE - gabapentin - norco - continue with dressings. #MSSA bacteremia - Ancef -Infectious disease recommendations appreciated - Echocardiogram negative -Repeat blood cultures 08/10 still positive will repeat on 08/14 #New-onset diabetes mellitus -Hemoglobin A1c 6.5 -Continue a sliding scale insulin secondary to IV steroids -Likely have oral medications on discharge -Diabetic education # adrenal insufficiency from chronic steroid use - 11/14 cortef 08/12 consider decreasing /2 again on 08/14 -continue insulin sliding scale and blood sugar monitoring #Suspect clinical COPD with acute exacerbation -Breathing treatments -Pulmonary hygiene -Steroids - pulm recs #Moderate protein calorie malnutrition -Encouraged healthy diet -Supplementation #Macrocytosis -TSH B12 and folic acid normal #Neuropathy -gabapentin #Hypokalemia -Replace and recheck in a.m. #Non-anion gap hyperchloremic metabolic acidosis, improving, off fluids DVT prophylaxis: Lovenox Discussed with: Patient, family Anticipated discharge: 3-[address]: SNF A total of 35 minutes was spent on the care of this complex patient more than 50 % of the time was spent in counseling and care coordination.
[2017-08-13 17:34] LABS: Glucose,Whole Blood 116 mg/dL (75-99)
[2017-08-13 20:36] LABS: Glucose,Whole Blood 241 mg/dL (75-99)
[2017-08-14] MEDS: HYDROCORTISONE SUCCINATE 100 MG/2 ML VIAL IV SCH ×4 (00:40→23:22)
[2017-08-14] MEDS: ceFAZolin 2 GM in SODIUM CHLORIDE 0.9% 100 ML IVPB SCH ×4 (00:42→23:22)
[2017-08-14] MEDS: POTASSIUM CHLORIDE ER 20 MEQ TAB.ER PO SCH ×4 (00:44→09:24)
[2017-08-14] MEDS ORDERED: Potassium Replacement Protocol 1 EACH MISC MISCELLANE PRN ×2 (04:28→05:30)
[2017-08-14] MEDS ORDERED: POTASSIUM CHLORIDE ER 20 MEQ TAB.ER PO SCH (05:00)
[2017-08-14] MEDS: HYDROcodone/APAP 10-325MG 1 EACH TAB PO PRN ×3 (05:24→17:43)
[2017-08-14 07:02] LABS: CH 30.6; CHCM 30.3; HCT 28.9 % (34.0-46.0); HDW 2.78; HGB 8.9 gm/dL (11.4-16.0); Hypochromasia Moderate; MCH 31.4 pg (25.0-35.0); MCHC 30.9 g/dL (31.0-37.0); MCV 101.7 fL (80.0-100.0); Macrocytosis Slight; Mean Platelet Volume 7.3; RBC 2.84 m/uL (3.80-5.40); RDW 15.7 % (11.5-15.5); WBC 7.2 k/uL (3.8-10.6)
[2017-08-14 07:06] LABS: ALT 20 U/L (9-52); AST 17 U/L (14-36); Alkaline Phosphatase 116 U/L (38-126); Anion Gap 5 mmol/L; Blood Urea Nitrogen 14 mg/dL (7-17); Calcium 8.3 mg/dL (8.4-10.2); Carbon Dioxide 25 mmol/L (22-30); Chloride 115 mmol/L (98-107); Glucose 102 mg/dL (74-99); Non-African American GFR(MDRD) >60 (>60 ml/min/1.73 sqM); Potassium 3.5 mmol/L (3.5-5.1); Sodium 145 mmol/L (137-145); Total Bilirubin <0.1 mg/dL (0.2-1.3); Total Protein 4.9 g/dL (6.3-8.2)
[2017-08-14 07:18] LABS: Glucose,Whole Blood 114 mg/dL (75-99)
[2017-08-14] MEDS: IPRATROPIUM-ALBUTEROL 3 ML NEB INHALATION SCH ×4 (07:21→19:51)
[2017-08-14] MEDS: traMADol 50 MG TAB PO PRN ×2 (09:19→15:37)
[2017-08-14] MEDS: NICOTINE 14MG/24HR PATCH TRANSDERM SCH (09:24)
[2017-08-14] MEDS: INSULIN LISPRO (humaLOG) 300 UNIT/3 ML VIAL SQ SCH ×4 (09:24→20:33)
[2017-08-14] MEDS: GABAPENTIN 300 MG CAP PO SCH ×3 (09:25→20:34)
[2017-08-14] MEDS: DULoxetine HCL 60 MG CAPSULE.DR PO SCH (09:25)
[2017-08-14] MEDS: ENOXAPARIN 40 MG/0.4 ML SYRINGE SQ SCH (09:25)
[2017-08-14] MEDS: FAMOTIDINE 20 MG TAB PO SCH ×2 (09:26→20:34)
[2017-08-14] MEDS: METOPROLOL SUCCINATE (ER) 50 MG TAB.ER.24H PO SCH (09:26)
[2017-08-14] MEDS: FOLIC ACID 1 MG TAB PO SCH (09:26)
[2017-08-14] MEDS: HYDROXYCHLOROQUINE SULFATE 200 MG TAB PO SCH (09:26)
[2017-08-14] MEDS: MULTIVITAMINS, THERA 1 EACH TAB PO SCH (09:27)
[2017-08-14] MEDS: POLYETHYLENE GLYCOL 3350 17 GM POWD.PACK PO SCH (09:27)
[2017-08-14] MEDS: LACOSAMIDE 50 MG TABLET PO SCH (09:39)
--- NOTE | 2017-08-14 09:40 | P.PN ---
Subjective Principal diagnosis: Infected right ankle joint with large wound on the lateral aspect of the ankle, status post right below the knee amputation This is a 56-year-old female with past medical history of rheumatoid arthritis, Raynaud's peripheral neuropathy, osteoarthritis, hypertension and MRSA infection, who presented to the emergency department on 08/07/2017 with right ankle wound with cellulitis and purulent drainage associated with right trimalleolar fracture for which she has been following with orthopedic surgery since 07/04/2017. Initially the fracture was reduced and splinted and she had been placed in the specialty boot but had developed significant ulceration to the lateral surface of the right ankle. The swelling in her ankles had increased as well as the deformity of the right ankle. The patient became quite ill with fevers and chills at which time she was brought in to the emergency department for evaluation and was subsequently admitted. Blood cultures and right ankle wound cultures were positive for Staphylococcus aureus , and infectious disease service is managing the antibiotics. X-ray of her right ankle from 08/07/2017 showed evidence of further destruction of the lateral dome of the talus and the possibility of septic arthritis and osteomyelitis could not be excluded. This was followed up with a MRI of the right ankle which did not demonstrate any evidence of osteomyelitis. Vascular surgery determined that the right foot was not salvageable related to gross destruction of the right ankle joint without the possibility of any orthopedic fixation. Pulmonary preop clearance was requested due to patient's smoking history and presumed COPD. On examination the patient is seen in the preop area , awake alert, appears chronically ill. She does complain of right ankle tenderness, but appears reasonably comfortable at the moment. She states she had never been diagnosed with COPD or any other chronic pulmonary conditions. She she had been a three-quarter to 1 pack a day smoker for the past 47 years. She is not on any inhalers or nebulizers at home. She states she is active on a regular basis without any significant limitation. No significant dyspnea on the day-to-day basis. No congestion, no wheezing, no cough. No active pulmonary symptoms. Lung sounds are clear, diminished at the bases. Patient is on room air with saturations around 93-96%. The patient is seen today 08/12/2017 in follow-up on the surgical floor. She is status post right below the knee amputation. This is postoperative day #1. She is currently awake and alert in no acute distress. She has no pulmonary complaints. No shortness of breath, cough or congestion. She's been afebrile. She is maintaining O2 saturations up to 100% on 3 L/m per nasal cannula. She' s currently on cefazolin. Her wound and blood cultures were positive for methicillin sensitive Staphylococcus aureus. 08/14/2017 patient seen in follow-up. She is doing very well from the pulmonary standpoint. No specific complaints. She denies wheezing, denies chest congestion or cough. Compliant with her incentive spirometer, her IS effort are today is 750-1000. She has been getting up with a walker, bearing weight on the left foot. On examination she is awake alert, states her pain is reasonably controlled. Lung sounds are clear, no rhonchi, no wheezing. Right below the knee stump with surgical dressing is clean dry and intact. Objective - Vital Signs Vital signs: Vital Signs Temp 98.0 F 08/14/17 01:05 Pulse 72 08/14/17 07:31 Resp 18 08/14/17 04:00 BP 144/73 08/14/17 01:05 Pulse Ox 98 08/14/17 01:05 Intake & Output 08/13/17 08/14/17 08/14/17 18:59 06:59 18:59 Intake Total 200 Balance 200 Intake: Oral 200 Other: # Voids 3 # Bowel Movements 1 - Exam Exam GENERAL EXAM: Alert, active, comfortable in no apparent distress. HEAD: Normocephalic. EYES: Normal reaction of pupils, equal size. NOSE: Clear with pink turbinates. THROAT: No erythema or exudates. NECK: No masses, no JVD. CHEST: No chest wall deformity. LUNGS: Equal air entry with no crackles, wheeze, rhonchi or dullness. CVS: S1 and S2 normal with no audible murmurs, regular rhythm. ABDOMEN: No hepatosplenomegaly, normal bowel sounds, no guarding or rigidity. SPINE: No scoliosis or deformity SKIN: No rashes CENTRAL NERVOUS SYSTEM: No focal deficits, tone is normal in all 4 extremities. Extremities: Dressing to the right below the knee surgical site is clean and dry. Peripheral pulses are intact. - Labs CBC & Chem 7: 08/14/17 06:32 08/14/17 08:16 Labs: Abnormal Lab Results - Last 24 Hours (Table) 08/13/17 08/13/17 08/14/17 Range/Units 17:09 20:33 03:27 RBC (3.80-5.40) m/uL Hgb (11.4-16.0) gm/dL Hct (34.0-46.0) % MCV (80.0-100.0) fL MCHC (31.0-37.0) g/dL RDW (11.5-15.5) % Potassium 3.4 L (3.5-5.1) mmol/L Chloride (98-107) mmol/L Glucose (74-99) mg/dL POC Glucose (mg/dL) 116 H 241 H (75-99) mg/dL Calcium (8.4-10.2) mg/dL Total Bilirubin (0.2-1.3) mg/dL Total Protein (6.3-8.2) g/dL Albumin (3.5-5.0) g/dL 08/14/17 08/14/17 08/14/17 Range/Units 06:32 06:32 06:58 RBC 2.84 L (3.80-5.40) m/uL Hgb 8.9 L (11.4-16.0) gm/dL Hct 28.9 L (34.0-46.0) % MCV 101.7 H (80.0-100.0) fL MCHC 30.9 L (31.0-37.0) g/dL RDW 15.7 H (11.5-15.5) % Potassium (3.5-5.1) mmol/L Chloride 115 H (98-107) mmol/L Glucose 102 H (74-99) mg/dL POC Glucose (mg/dL) 114 H (75-99) mg/dL Calcium 8.3 L (8.4-10.2) mg/dL Total Bilirubin <0.1 L (0.2-1.3) mg/dL Total Protein 4.9 L (6.3-8.2) g/dL Albumin 2.4 L (3.5-5.0) g/dL Microbiology - Last 24 Hours (Table) 08/10/17 05:15 Blood Culture - Preliminary Blood No Growth after 96 hours 08/08/17 14:03 Blood Culture Gram Stain - Final Blood Blood Culture - Final Staphylococcus aureus Assessment and Plan Plan: Assessment: #1. Acute trimalleolar fracture of ankle, open #2. Acute cellulitis and abscess of right lower extremity #3. Acute sepsis, blood and right lower extremity wound cultures positive for Staphylococcus aureus #4. Possible right ankle septic arthritis and osteomyelitis #5. History of chronic immunosuppression secondary to Plaquenil and prednisone therapy for her underlying rheumatoid arthritis #6. History of MRSA #7. Acute leukocytosis secondary to sepsis #8. Nonsalvageable right ankle joint, status right below the knee amputation with Dr. Ortiz, postop day 3. #9. Ongoing nicotine dependence Plan: Patient currently has no active pulmonary complaints or processes. She is stable from the pulmonary standpoint. She does have [id number] history of smoking and ongoing tobacco use. She is active on a regular basis with no significant limitation in her functional status. Her lung sounds are clear, with no rhonchi, no wheezes. Continue on bronchodilators and Solu-Cortef. Continue with pulmonary toileting. GI and DVT prophylaxis. Continue to increase activity as tolerated. Despite her extensive smoking history, patient has no active pulmonary complaints. We will see her on as-needed basis. Thank you for this consultation. I performed a history & physical examination of the patient and discussed their management with my nurse practitioner, Radha Kruse. I reviewed the nurse practitioner's note and agree with the documented findings and plan of care.
[2017-08-14 11:28] LABS: Glucose,Whole Blood 136 mg/dL (75-99)
[2017-08-14] MEDS: THIAMINE 100 MG TAB PO SCH ×2 (12:45→17:40)
--- NOTE | 2017-08-14 13:23 | PN ---
PROGRESS NOTE This is a 56-year-old female. She had a right BK amputation done. Today we changed the dressing. Stump site looks clean and incision is healing good. Patient tolerating physical therapy well. When patient goes to correction, I will follow in office next Monday for removal of the stitches. MMJOHNL / JOSEN: [id number] /
[2017-08-14 16:38] LABS: Glucose,Whole Blood 131 mg/dL (75-99)
[2017-08-14 20:08] LABS: Glucose,Whole Blood 239 mg/dL (75-99)
--- NOTE | 2017-08-14 21:05 | P.PN ---
Subjective Principal diagnosis: Sepsis 56-year-old female, originally from [place], presents the emergency center for increasing difficulties with her right ankle. On July 04 she did present to the emergency center with deformity to her ankle. She has a long- standing history of rheumatoid arthritis and some neuropathy. However due to dyspnea and change of her ankle in June she presented to emergency center and was sent to orthopedics. At that time she was placed into a specialty boot and was asking follow-up. Apparently in the meantime she developed a significant ulceration to the lateral surface of the ankle that has now been draining purulent material. Ankles become considerably more swollen. It's deformity has increased. The patient herself became quite ill with fevers and chills. Because of the acute change of her status she was brought back to the emergency center and admitted. With evidence of sepsis and bacteremia the infectious diseases consultation was requested. Of note the current x-rays reveal evidence of some further destruction to the ankle consistent with an acute infectious process. The patient does feel slightly better today. Eating some soup that her daughter has brought for her. The patient has been seen by orthopedics as well as vascular surgery. Apparently the ankle joint is grossly destroyed without any orthopedic fixation being possible. blood cultures are still positive at this point in time with staph aureus. Echocardiogram performed without evidence of endocarditis. As noted the ankle joint was destroyed. 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 Other Than Some Pain at the Site She Is Recovering Well. Objective - Vital Signs Vital signs: Vital Signs Temp 98.0 F 08/14/17 19:00 Pulse 84 08/14/17 19:52 Resp 16 08/14/17 19:00 BP 138/82 08/14/17 19:00 Pulse Ox 96 08/14/17 19:00 Intake & Output 08/14/17 08/14/17 08/15/17 06:59 18:59 06:59 Intake Total 200 387 Balance 200 387 Intake: Oral 200 387 Other: # Voids 3 - Exam 56-year-old woman who is modestly comfortable at this time. But does relate to significant discomfort to the right ankle. She denying fever, chills at this time HEENT: Anicteric conjunctiva are pink and moist nasal mucosa grossly intact without significant lesions, there is no thrush. Neck: The neck is supple without significant lymphadenopathy or thyromegaly. Lungs: There is symmetrical air entry. Heart: Regular rate and rhythm with an audible S1-S2, no S3 no S4. There is no significant murmur click or rub, PMI was nondisplaced. Abdomen: Positive bowel sounds soft and nontender without palpable masses or organomegaly. There was no guarding or rebound. Extremities: The upper extremities have excellent pulses they are symmetric, no significant petechiae or telangiectasia. No splinter hemorrhages were noted. The left lower extremity is without acute abnormalities except for changes of rheumatoid arthritis. Right lower extremity reveals evidence of the recent below the knee amputation. The dressing is dry and intact, the vascular surgeon relates that the flap is intact. Neuro she is awake alert oriented to person place and time and has no new acute gross focal sensory motor deficits - Labs CBC & Chem 7: 08/14/17 06:32 08/14/17 08:16 Labs: Abnormal Lab Results - Last 24 Hours (Table) 08/14/17 08/14/17 08/14/17 Range/Units 03:27 06:32 06:32 RBC 2.84 L (3.80-5.40) m/uL Hgb 8.9 L (11.4-16.0) gm/dL Hct 28.9 L (34.0-46.0) % MCV 101.7 H (80.0-100.0) fL MCHC 30.9 L (31.0-37.0) g/dL RDW 15.7 H (11.5-15.5) % Potassium 3.4 L (3.5-5.1) mmol/L Chloride 115 H (98-107) mmol/L Glucose 102 H (74-99) mg/dL POC Glucose (mg/dL) (75-99) mg/dL Calcium 8.3 L (8.4-10.2) mg/dL Total Bilirubin <0.1 L (0.2-1.3) mg/dL Total Protein 4.9 L (6.3-8.2) g/dL Albumin 2.4 L (3.5-5.0) g/dL 08/14/17 08/14/17 08/14/17 Range/Units 06:58 11:15 16:35 RBC (3.80-5.40) m/uL Hgb (11.4-16.0) gm/dL Hct (34.0-46.0) % MCV (80.0-100.0) fL MCHC (31.0-37.0) g/dL RDW (11.5-15.5) % Potassium (3.5-5.1) mmol/L Chloride (98-107) mmol/L Glucose (74-99) mg/dL POC Glucose (mg/dL) 114 H 136 H 131 H (75-99) mg/dL Calcium (8.4-10.2) mg/dL Total Bilirubin (0.2-1.3) mg/dL Total Protein (6.3-8.2) g/dL Albumin (3.5-5.0) g/dL 08/14/17 Range/Units 20:01 RBC (3.80-5.40) m/uL Hgb (11.4-16.0) gm/dL Hct (34.0-46.0) % MCV (80.0-100.0) fL MCHC (31.0-37.0) g/dL RDW (11.5-15.5) % Potassium (3.5-5.1) mmol/L Chloride (98-107) mmol/L Glucose (74-99) mg/dL POC Glucose (mg/dL) 239 H (75-99) mg/dL Calcium (8.4-10.2) mg/dL Total Bilirubin (0.2-1.3) mg/dL Total Protein (6.3-8.2) g/dL Albumin (3.5-5.0) g/dL Microbiology - Last 24 Hours (Table) 08/10/17 05:15 Blood Culture - Preliminary Blood No Growth after 96 hours Laboratory Results WBC 7.2 k/uL (3.8-10.6) 08/14/17 06:32 RBC 2.84 m/uL (3.80-5.40) L 08/14/17 06:32 Hgb 8.9 gm/dL (11.4-16.0) L 08/14/17 06:32 Hct 28.9 % (34.0-46.0) L 08/14/17 06:32 MCV 101.7 fL (80.0-100.0) H 08/14/17 06:32 MCH 31.4 pg (25.0-35.0) 08/14/17 06:32 MCHC 30.9 g/dL (31.0-37.0) L 08/14/17 06:32 RDW 15.7 % (11.5-15.5) H 08/14/17 06:32 Plt Count 251 k/uL (150-450) 08/14/17 06:32 Neutrophils % 82 % 08/12/17 07:26 Lymphocytes % 9 % 08/12/17 07:26 Monocytes % 7 % 08/12/17 07:26 Eosinophils % 0 % 08/12/17 07:26 Basophils % 0 % 08/12/17 07:26 Neutrophils # 5.6 k/uL (1.3-7.7) 08/12/17 07:26 Lymphocytes # 0.6 k/uL (1.0-4.8) L 08/12/17 07:26 Monocytes # 0.5 k/uL (0-1.0) 08/12/17 07:26 Eosinophils # 0.0 k/uL (0-0.7) 08/12/17 07:26 Basophils # 0.0 k/uL (0-0.2) 08/12/17 07:26 Hypochromasia Moderate 08/14/17 06:32 Anisocytosis Slight 08/13/17 06:53 Macrocytosis Slight 08/14/17 06:32 ESR 41 mm/hr (0-20) H 08/08/17 07:42 Sample Site rrad 08/08/17 10:47 ABG pH 7.27 (7.35-7.45) L 08/08/17 10:47 ABG pCO2 36 mmHg (35-45) 08/08/17 10:47 ABG pO2 74 mmHg (83-108) L 08/08/17 10:47 ABG HCO3 16 mmol/L (21-25) L 08/08/17 10:47 ABG Total CO2 17 mmol/L (19-24) L 08/08/17 10:47 ABG O2 Saturation 93.0 % (94-97) L 08/08/17 10:47 ABG Base Excess -10.0 mmol/L 08/08/17 10:47 FiO2 21 % 08/08/17 10:47 Sodium 145 mmol/L (137-145) 08/14/17 06:32 Potassium 4.3 mmol/L (3.5-5.1) 08/14/17 08:16 Chloride 115 mmol/L (98-107) H 08/14/17 06:32 Carbon Dioxide 25 mmol/L (22-30) 08/14/17 06:32 Anion Gap 5 mmol/L 08/14/17 06:32 BUN 14 mg/dL (7-17) 08/14/17 06:32 Creatinine 0.70 mg/dL (0.52-1.04) 08/14/17 06:32 Est GFR (MDRD) Af Amer >60 (>60 ml/min/1.73 sqM) 08/14/17 06:32 Est GFR (MDRD) Non-Af >60 (>60 ml/min/1.73 sqM) 08/14/17 06:32 Glucose 102 mg/dL (74-99) H 08/14/17 06:32 POC Glucose (mg/dL) 239 mg/dL (75-99) H 08/14/17 20:01 POC Glu Spa Director Vanesa López 08/14/17 20:[address] Glu mg/dL 140 mg/dL 08/08/17 07:42 Hemoglobin A1c 6.5 % (4.2-6.1) H 08/08/17 07:42 Plasma Lactic Acid Al 1.1 mmol/L (0.7-2.0) 08/08/17 08:20 Calcium 8.3 mg/dL (8.4-10.2) L 08/14/17 06:32 Magnesium 2.0 mg/dL (1.6-2.3) 08/13/17 07:04 Total Bilirubin <0.1 mg/dL (0.2-1.3) L 08/14/17 06:32 AST 17 U/L (14-36) 08/14/17 06:32 ALT 20 U/L (9-52) 08/14/17 06:32 Alkaline Phosphatase 116 U/L (38-126) 08/14/17 06:32 C-Reactive Protein 324.2 mg/L (<10.0) H 08/08/17 07:42 Total Protein 4.9 g/dL (6.3-8.2) L 08/14/17 06:32 Albumin 2.4 g/dL (3.5-5.0) L 08/14/17 06:32 Prealbumin 14.0 mg/dL (18.0-42.0) L 08/08/17 07:42 Vitamin B12 610 pg/mL (239-931) 08/09/17 06:45 RBC Folate 960 ng/mL (280 - 791) H 08/09/17 06:45 TSH 0.155 mIU/L (0.465-4.680) L 08/09/17 06:45 Free T4 1.01 ng/dL (0.78-2.19) 08/09/17 06:45 Urine Color Light Yellow 08/10/17 00:35 Urine Appearance Clear (Clear) 08/10/17 00:35 Urine pH 7.0 (5.0-8.0) 08/10/17 00:35 Ur Specific [place] 1.009 (1.001-1.035) 08/10/17 00:35 Urine Protein Trace (Negative) H 08/10/17 00:35 Urine Glucose (UA) Negative (Negative) 08/10/17 00:35 Urine Ketones Negative (Negative) 08/10/17 00:35 Urine Blood Negative (Negative) 08/10/17 00:35 Urine Nitrite Negative (Negative) 08/10/17 00:35 Urine Bilirubin Negative (Negative) 08/10/17 00:35 Urine Urobilinogen <2.0 mg/dL (<2.0) 08/10/17 00:35 Ur Leukocyte Esterase Negative (Negative) 08/10/17 00:35 Vancomycin Trough 26.8 ug/mL 08/10/17 05:15 Random Vancomycin 20.8 ug/mL 08/11/17 05:12 Microbiology 08/10/17 05:15 Blood Blood Culture - Preliminary No Growth after 96 hours 08/08/17 14:03 Blood Blood Culture Gram Stain - Final 08/08/17 14:03 Blood Blood Culture - Final Staphylococcus aureus 08/10/17 05:25 Blood Blood Culture Gram Stain - Final 08/10/17 05:25 Blood Blood Culture - Final Staphylococcus aureus 08/10/17 05:25 Blood Blood Culture - Preliminary 08/08/17 08:40 Ankle - Right Anaerobic Culture - Final 08/08/17 11:22 Blood Blood Culture Gram Stain - Final 08/08/17 11:22 Blood Blood Culture - Final Staphylococcus aureus 08/08/17 08:40 Ankle - Right Gram Stain - Final 08/08/17 08:40 Ankle - Right Wound Culture - Final Staphylococcus aureus 08/07/17 18:48 Blood Blood Culture Gram Stain - Final 08/07/17 18:48 Blood Blood Culture - Final Staph aureus 08/07/17 18:48 Blood Blood Culture - Final 08/08/17 14:03 Blood Blood Culture - Final 08/08/17 11:22 Blood Blood Culture - Final Assessment and Plan (1) Cellulitis and abscess of right leg Status: Acute (2) Trimalleolar fracture of ankle, open Status: Acute (3) Sepsis Narrative/Plan: 56-year-old woman presents to hospital with increasing difficulties related to her right ankle. She presented emergency center on 07/04/2017 at which point in time there is evidence of a trimalleolar fracture. She was placed into mobilization and referred to orthopedics. She's been in immobilization since that time. However is developed a significant ulceration to the lateral aspect of the ankle with grossly necrotic material. The foot has become quite swollen especially at the ankle with significant and gross deformity. There is erythema and purulent drainage. This has been cultured. Blood cultures are also positive at this point in time. Both the wound and blood cultures appear to be staph aureus. She does have a history of MRSA. Constantly vancomycin therapy is utilize. Until cultures are finalized antibiotic therapy is also enhance with ceftazidime with her history of prior acientobacter infection. Follow blood cultures are been requested As noted multiple discussions occurred with the orthopedic team and vascular surgery. The ankle was deemed to be nonsalvageable and she was taken to the operating room and a [id number] amputation occurred. Since then she showing some ongoing improvements. Blood cultures are in process of hopefully will be negative. Once we have negative blood cultures IV access with the PICC line may be placed to complete at least 4 weeks of intravenous antibiotic therapy with Ancef Although the site of infection is removed, she still had high-grade bacteremia for many days and will need an appropriate course of intravenous antibiotic therapy. She understands and looks forward to going to rehab. Status: Acute (4) Septic arthritis of right ankle Status: Acute
[2017-08-15] MEDS: HYDROcodone/APAP 10-325MG 1 EACH TAB PO PRN ×2 (04:42→20:51)
[2017-08-15 07:01] LABS: Glucose,Whole Blood 93 mg/dL (75-99)
[2017-08-15] MEDS: IPRATROPIUM-ALBUTEROL 3 ML NEB INHALATION SCH ×4 (07:13→19:27)
[2017-08-15 07:28] LABS: CH 30.5; CHCM 30.1; HCT 29.5 % (34.0-46.0); HDW 2.81; HGB 8.9 gm/dL (11.4-16.0); Hypochromasia Marked; MCH 30.9 pg (25.0-35.0); MCHC 30.3 g/dL (31.0-37.0); Macrocytosis Slight; Mean Platelet Volume 8.4; RBC 2.89 m/uL (3.80-5.40); RDW 15.9 % (11.5-15.5); WBC 6.9 k/uL (3.8-10.6)
[2017-08-15 07:40] LABS: Anion Gap 5 mmol/L; Blood Urea Nitrogen 12 mg/dL (7-17); Calcium 8.4 mg/dL (8.4-10.2); Carbon Dioxide 26 mmol/L (22-30); Chloride 113 mmol/L (98-107); Glucose 87 mg/dL (74-99); Non-African American GFR(MDRD) >60 (>60 ml/min/1.73 sqM); Potassium 3.7 mmol/L (3.5-5.1); Sodium 144 mmol/L (137-145)
[2017-08-15] MEDS: HYDROCORTISONE SUCCINATE 100 MG/2 ML VIAL IV SCH ×2 (08:26→16:05)
[2017-08-15] MEDS: ENOXAPARIN 40 MG/0.4 ML SYRINGE SQ SCH (08:26)
[2017-08-15] MEDS: GABAPENTIN 300 MG CAP PO SCH ×3 (08:26→20:52)
[2017-08-15] MEDS: FOLIC ACID 1 MG TAB PO SCH (08:28)
[2017-08-15] MEDS: METOPROLOL SUCCINATE (ER) 50 MG TAB.ER.24H PO SCH (08:28)
[2017-08-15] MEDS: MULTIVITAMINS, THERA 1 EACH TAB PO SCH (08:28)
[2017-08-15] MEDS: NICOTINE 14MG/24HR PATCH TRANSDERM SCH (08:28)
[2017-08-15] MEDS: HYDROXYCHLOROQUINE SULFATE 200 MG TAB PO SCH (08:28)
[2017-08-15] MEDS: DULoxetine HCL 60 MG CAPSULE.DR PO SCH (08:30)
[2017-08-15] MEDS: ceFAZolin 2 GM in SODIUM CHLORIDE 0.9% 100 ML IVPB SCH ×2 (08:32→16:06)
[2017-08-15] MEDS: INSULIN LISPRO (humaLOG) 300 UNIT/3 ML VIAL SQ SCH ×4 (08:33→20:50)
[2017-08-15] MEDS: POLYETHYLENE GLYCOL 3350 17 GM POWD.PACK PO SCH (08:43)
[2017-08-15] MEDS: traMADol 50 MG TAB PO PRN (08:45)
--- NOTE | 2017-08-15 08:47 | P.PN ---
Subjective Principal diagnosis: Infected right ankle joint with large wound on the lateral aspect of the ankle, status post right below the knee amputation This is a 56-year-old female with past medical history of rheumatoid arthritis, Raynaud's peripheral neuropathy, osteoarthritis, hypertension and MRSA infection, who presented to the emergency department on 08/07/2017 with right ankle wound with cellulitis and purulent drainage associated with right trimalleolar fracture for which she has been following with orthopedic surgery since 07/04/2017. Initially the fracture was reduced and splinted and she had been placed in the specialty boot but had developed significant ulceration to the lateral surface of the right ankle. The swelling in her ankles had increased as well as the deformity of the right ankle. The patient became quite ill with fevers and chills at which time she was brought in to the emergency department for evaluation and was subsequently admitted. Blood cultures and right ankle wound cultures were positive for Staphylococcus aureus , and infectious disease service is managing the antibiotics. X-ray of her right ankle from 08/07/2017 showed evidence of further destruction of the lateral dome of the talus and the possibility of septic arthritis and osteomyelitis could not be excluded. This was followed up with a MRI of the right ankle which did not demonstrate any evidence of osteomyelitis. Vascular surgery determined that the right foot was not salvageable related to gross destruction of the right ankle joint without the possibility of any orthopedic fixation. Pulmonary preop clearance was requested due to patient's smoking history and presumed COPD. On examination the patient is seen in the preop area , awake alert, appears chronically ill. She does complain of right ankle tenderness, but appears reasonably comfortable at the moment. She states she had never been diagnosed with COPD or any other chronic pulmonary conditions. She she had been a three-quarter to 1 pack a day smoker for the past 47 years. She is not on any inhalers or nebulizers at home. She states she is active on a regular basis without any significant limitation. No significant dyspnea on the day-to-day basis. No congestion, no wheezing, no cough. No active pulmonary symptoms. Lung sounds are clear, diminished at the bases. Patient is on room air with saturations around 93-96%. The patient is seen today 08/12/2017 in follow-up on the surgical floor. She is status post right below the knee amputation. This is postoperative day #1. She is currently awake and alert in no acute distress. She has no pulmonary complaints. No shortness of breath, cough or congestion. She's been afebrile. She is maintaining O2 saturations up to 100% on 3 L/m per nasal cannula. She' s currently on cefazolin. Her wound and blood cultures were positive for methicillin sensitive Staphylococcus aureus. 08/14/2017 patient seen in follow-up. She is doing very well from the pulmonary standpoint. No specific complaints. She denies wheezing, denies chest congestion or cough. Compliant with her incentive spirometer, her IS effort are today is 750-1000. She has been getting up with a walker, bearing weight on the left foot. On examination she is awake alert, states her pain is reasonably controlled. Lung sounds are clear, no rhonchi, no wheezing. Right below the knee stump with surgical dressing is clean dry and intact. On 08/15/2017 patient seen on the surgical floor. She is resting in bed, no signs of distress noted. She is compliant with her incentive spirometer. She has been getting up with her walker to the bathroom, actively participates in her physical therapy. Lung sounds are clear, no wheezing, no chest congestion. She denies shortness of breath, cough, or sputum production. Right BKA stump covered with a surgical dressing. Patient has had no febrile episodes. She is on room air. Anticipate discharge to medical [place] [facility] tomorrow. Patient is scheduled for insertion of the PICC line today or tomorrow. Objective - Vital Signs Vital signs: Vital Signs Temp 97.5 F L 08/15/17 07:00 Pulse 76 08/15/17 07:32 Resp 15 08/15/17 07:00 BP 159/83 08/15/17 07:00 Pulse Ox 100 08/15/17 07:00 Intake & Output 08/14/17 08/15/17 08/15/17 18:59 06:59 18:59 Intake Total 387 350 Balance 387 350 Intake: Oral 387 350 Other: Voiding Method Toilet Toilet # Voids 1 - Exam Exam GENERAL EXAM: Alert, active, comfortable in no apparent distress. HEAD: Normocephalic. EYES: Normal reaction of pupils, equal size. NOSE: Clear with pink turbinates. THROAT: No erythema or exudates. NECK: No masses, no JVD. CHEST: No chest wall deformity. LUNGS: Equal air entry with no crackles, wheeze, rhonchi or dullness. CVS: S1 and S2 normal with no audible murmurs, regular rhythm. ABDOMEN: No hepatosplenomegaly, normal bowel sounds, no guarding or rigidity. SPINE: No scoliosis or deformity SKIN: No rashes CENTRAL NERVOUS SYSTEM: No focal deficits, tone is normal in all 4 extremities. Extremities: Dressing to the right below the knee surgical site is clean and dry. Peripheral pulses are intact. - Labs CBC & Chem 7: 08/15/17 06:31 08/15/17 06:31 Labs: Abnormal Lab Results - Last 24 Hours (Table) 08/14/17 08/14/17 08/14/17 Range/Units 11:15 16:35 20:01 RBC (3.80-5.40) m/uL Hgb (11.4-16.0) gm/dL Hct (34.0-46.0) % MCV (80.0-100.0) fL MCHC (31.0-37.0) g/dL RDW (11.5-15.5) % Chloride (98-107) mmol/L POC Glucose (mg/dL) 136 H 131 H 239 H (75-99) mg/dL 08/15/17 08/15/17 Range/Units 06:31 06:31 RBC 2.89 L (3.80-5.40) m/uL Hgb 8.9 L (11.4-16.0) gm/dL Hct 29.5 L (34.0-46.0) % MCV 102.0 H (80.0-100.0) fL MCHC 30.3 L (31.0-37.0) g/dL RDW 15.9 H (11.5-15.5) % Chloride 113 H (98-107) mmol/L POC Glucose (mg/dL) (75-99) mg/dL Microbiology - Last 24 Hours (Table) 08/10/17 05:15 Blood Culture - Preliminary Blood No Growth after 120 hours Assessment and Plan Plan: Assessment: #1. Acute trimalleolar fracture of ankle, open #2. Acute cellulitis and abscess of right lower extremity #3. Acute sepsis, blood and right lower extremity wound cultures positive for Staphylococcus aureus #4. Possible right ankle septic arthritis and osteomyelitis #5. History of chronic immunosuppression secondary to Plaquenil and prednisone therapy for her underlying rheumatoid arthritis #6. History of MRSA #7. Acute leukocytosis secondary to sepsis #8. Nonsalvageable right ankle joint, status right below the knee amputation with Dr. Ortiz, postop day 3. #9. Ongoing nicotine dependence Plan: Patient currently has no active pulmonary complaints or processes. She is stable from the pulmonary standpoint. She does have [id number]-puge history of smoking and ongoing tobacco use. She is active on a regular basis with no significant limitation in her functional status. Her lung sounds are clear, with no rhonchi, no wheezes. Continue on bronchodilators and Solu-Cortef. Continue with pulmonary toileting. GI and DVT prophylaxis. Continue to increase activity as tolerated. Despite her extensive smoking history, patient has no active pulmonary complaints. Antic[facility]ate [facility] for 4 weeks of rehabilitation and IV antibiotics. Will set up follow-up appointment with Dr. Palma in 1 week post discharge Thank you for this consultation. I performed a history & physical examination of the patient and discussed their management with my nurse practitioner, Radha Kruse. I reviewed the nurse practitioner's note and agree with the documented findings and plan of care.
[2017-08-15] MEDS: FAMOTIDINE 20 MG TAB PO SCH ×2 (09:00→20:52)
[2017-08-15 11:42] LABS: Glucose,Whole Blood 182 mg/dL (75-99)
[2017-08-15] MEDS: LACOSAMIDE 50 MG TABLET PO SCH (12:02)
[2017-08-15] MEDS: THIAMINE 100 MG TAB PO SCH ×2 (12:47→16:06)
[2017-08-15 16:53] LABS: Glucose,Whole Blood 149 mg/dL (75-99)
[2017-08-15 20:08] LABS: Glucose,Whole Blood 223 mg/dL (75-99)
--- NOTE | 2017-08-15 23:10 | P.PN ---
Subjective Principal diagnosis: Sepsis 56-year-old female, originally from [place], presents the emergency center for increasing difficulties with her right ankle. On July 04 she did present to the emergency center with deformity to her ankle. She has a long- standing history of rheumatoid arthritis and some neuropathy. However due to dyspnea and change of her ankle in June she presented to emergency center and was sent to orthopedics. At that time she was placed into a specialty boot and was asking follow-up. Apparently in the meantime she developed a significant ulceration to the lateral surface of the ankle that has now been draining purulent material. Ankles become considerably more swollen. It's deformity has increased. The patient herself became quite ill with fevers and chills. Because of the acute change of her status she was brought back to the emergency center and admitted. With evidence of sepsis and bacteremia the infectious diseases consultation was requested. Of note the current x-rays reveal evidence of some further destruction to the ankle consistent with an acute infectious process. The patient does feel slightly better today. Eating some soup that her daughter has brought for her. The patient has been seen by orthopedics as well as vascular surgery. Apparently the ankle joint is grossly destroyed without any orthopedic fixation being possible. blood cultures are still positive at this point in time with staph aureus. Echocardiogram performed without evidence of endocarditis. As noted the ankle joint was destroyed. 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 Other Than Some Pain at the Site She Is Recovering Well. Objective - Vital Signs Vital signs: Vital Signs Temp 97.4 F L 08/15/17 15:00 Pulse 82 08/15/17 19:43 Resp 16 08/15/17 15:00 BP 150/88 08/15/17 15:00 Pulse Ox 100 08/15/17 07:00 Intake & Output 08/15/17 08/15/17 08/16/17 06:59 18:59 06:59 Intake Total 350 580 Balance 350 580 Intake: Intake, IV Titration 100 Amount ceFAZolin 2 gm In Sodium 100 Chloride 0.9% 100 ml @ 100 mls/hr IVPB Q8HR [facility] Rx#:[id number] Oral 350 480 Other: Voiding Method Toilet Toilet # Voids 1 2 - Exam 56-year-old woman who is modestly comfortable at this time. But does relate to significant discomfort to the right ankle. She denying fever, chills at this time HEENT: Anicteric conjunctiva are pink and moist nasal mucosa grossly intact without significant lesions, there is no thrush. Neck: The neck is supple without significant lymphadenopathy or thyromegaly. Lungs: There is symmetrical air entry. Heart: Regular rate and rhythm with an audible S1-S2, no S3 no S4. There is no significant murmur click or rub, PMI was nondisplaced. Abdomen: Positive bowel sounds soft and nontender without palpable masses or organomegaly. There was no guarding or rebound. Extremities: The upper extremities have excellent pulses they are symmetric, no significant petechiae or telangiectasia. No splinter hemorrhages were noted. The left lower extremity is without acute abnormalities except for changes of rheumatoid arthritis. Right lower extremity reveals evidence of the recent below the knee amputation. The dressing is dry and intact, the vascular surgeon relates that the flap is intact. The left heel has evidence of irritation Neuro she is awake alert oriented to person place and time and has no new acute gross focal sensory motor deficits - Labs CBC & Chem 7: 08/15/17 06:31 08/15/17 06:31 Labs: Abnormal Lab Results - Last 24 Hours (Table) 08/15/17 08/15/17 08/15/17 Range/Units 06:31 06:31 11:38 RBC 2.89 L (3.80-5.40) m/uL Hgb 8.9 L (11.4-16.0) gm/dL Hct 29.5 L (34.0-46.0) % MCV 102.0 H (80.0-100.0) fL MCHC 30.3 L (31.0-37.0) g/dL RDW 15.9 H (11.5-15.5) % Chloride 113 H (98-107) mmol/L POC Glucose (mg/dL) 182 H (75-99) mg/dL 08/15/17 08/15/17 Range/Units 16:44 19:54 RBC (3.80-5.40) m/uL Hgb (11.4-16.0) gm/dL Hct (34.0-46.0) % MCV (80.0-100.0) fL MCHC (31.0-37.0) g/dL RDW (11.5-15.5) % Chloride (98-107) mmol/L POC Glucose (mg/dL) 149 H 223 H (75-99) mg/dL Microbiology - Last 24 Hours (Table) 08/14/17 06:39 Blood Culture - Preliminary Blood No Growth after 24 hours 08/14/17 06:32 Blood Culture - Preliminary Blood No Growth after 24 hours 08/10/17 05:15 Blood Culture - Preliminary Blood No Growth after 120 hours Laboratory Results WBC 6.9 k/uL (3.8-10.6) 08/15/17 06:31 RBC 2.89 m/uL (3.80-5.40) L 08/15/17 06:31 Hgb 8.9 gm/dL (11.4-16.0) L 08/15/17 06:31 Hct 29.5 % (34.0-46.0) L 08/15/17 06:31 MCV 102.0 fL (80.0-100.0) H 08/15/17 06:31 MCH 30.9 pg (25.0-35.0) 08/15/17 06:31 MCHC 30.3 g/dL (31.0-37.0) L 08/15/17 06:31 RDW 15.9 % (11.5-15.5) H 08/15/17 06:31 Plt Count 234 k/uL (150-450) 08/15/17 06:31 Neutrophils % 82 % 08/12/17 07:26 Lymphocytes % 9 % 08/12/17 07:26 Monocytes % 7 % 08/12/17 07:26 Eosinophils % 0 % 08/12/17 07:26 Basophils % 0 % 08/12/17 07:26 Neutrophils # 5.6 k/uL (1.3-7.7) 08/12/17 07:26 Lymphocytes # 0.6 k/uL (1.0-4.8) L 08/12/17 07:26 Monocytes # 0.5 k/uL (0-1.0) 08/12/17 07:26 Eosinophils # 0.0 k/uL (0-0.7) 08/12/17 07:26 Basophils # 0.0 k/uL (0-0.2) 08/12/17 07:26 Hypochromasia Marked 08/15/17 06:31 Anisocytosis Slight 08/13/17 06:53 Macrocytosis Slight 08/15/17 06:31 ESR 41 mm/hr (0-20) H 08/08/17 07:42 Sample Site rrad 08/08/17 10:47 ABG pH 7.27 (7.35-7.45) L 08/08/17 10:47 ABG pCO2 36 mmHg (35-45) 08/08/17 10:47 ABG pO2 74 mmHg (83-108) L 08/08/17 10:47 ABG HCO3 16 mmol/L (21-25) L 08/08/17 10:47 ABG Total CO2 17 mmol/L (19-24) L 08/08/17 10:47 ABG O2 Saturation 93.0 % (94-97) L 08/08/17 10:47 ABG Base Excess -10.0 mmol/L 08/08/17 10:47 FiO2 21 % 08/08/17 10:47 Sodium 144 mmol/L (137-145) 08/15/17 06:31 Potassium 3.7 mmol/L (3.5-5.1) 08/15/17 06:31 Chloride 113 mmol/L (98-107) H 08/15/17 06:31 Carbon Dioxide 26 mmol/L (22-30) 08/15/17 06:31 Anion Gap 5 mmol/L 08/15/17 06:31 BUN 12 mg/dL (7-17) 08/15/17 06:31 Creatinine 0.70 mg/dL (0.52-1.04) 08/15/17 06:31 Est GFR (MDRD) Af Amer >60 (>60 ml/min/1.73 sqM) 08/15/17 06:31 Est GFR (MDRD) Non-Af >60 (>60 ml/min/1.73 sqM) 08/15/17 06:31 Glucose 87 mg/dL (74-99) 08/15/17 06:31 POC Glucose (mg/dL) 223 mg/dL (75-99) H 08/15/17 19:54 POC Glu Hide Spreader CHRISTIAN April Rayo 08/15/17 19:[address] Glu mg/dL 140 mg/dL 08/08/17 07:42 Hemoglobin A1c 6.5 % (4.2-6.1) H 08/08/17 07:42 Plasma Lactic Acid Al 1.1 mmol/L (0.7-2.0) 08/08/17 08:20 Calcium 8.4 mg/dL (8.4-10.2) 08/15/17 06:31 Magnesium 2.0 mg/dL (1.6-2.3) 08/13/17 07:04 Total Bilirubin <0.1 mg/dL (0.2-1.3) L 08/14/17 06:32 AST 17 U/L (14-36) 08/14/17 06:32 ALT 20 U/L (9-52) 08/14/17 06:32 Alkaline Phosphatase 116 U/L (38-126) 08/14/17 06:32 C-Reactive Protein 324.2 mg/L (<10.0) H 08/08/17 07:42 Total Protein 4.9 g/dL (6.3-8.2) L 08/14/17 06:32 Albumin 2.4 g/dL (3.5-5.0) L 08/14/17 06:32 Prealbumin 14.0 mg/dL (18.0-42.0) L 08/08/17 07:42 Vitamin B12 610 pg/mL (239-931) 08/09/17 06:45 RBC Folate 960 ng/mL (280 - 791) H 08/09/17 06:45 TSH 0.155 mIU/L (0.465-4.680) L 08/09/17 06:45 Free T4 1.01 ng/dL (0.78-2.19) 08/09/17 06:45 Urine Color Light Yellow 08/10/17 00:35 Urine Appearance Clear (Clear) 08/10/17 00:35 Urine pH 7.0 (5.0-8.0) 08/10/17 00:35 Ur Specific [place] 1.009 (1.001-1.035) 08/10/17 00:35 Urine Protein Trace (Negative) H 08/10/17 00:35 Urine Glucose (UA) Negative (Negative) 08/10/17 00:35 Urine Ketones Negative (Negative) 08/10/17 00:35 Urine Blood Negative (Negative) 08/10/17 00:35 Urine Nitrite Negative (Negative) 08/10/17 00:35 Urine Bilirubin Negative (Negative) 08/10/17 00:35 Urine Urobilinogen <2.0 mg/dL (<2.0) 08/10/17 00:35 Ur Leukocyte Esterase Negative (Negative) 08/10/17 00:35 Vancomycin Trough 26.8 ug/mL 08/10/17 05:15 Random Vancomycin 20.8 ug/mL 08/11/17 05:12 Laboratory Results WBC 6.9 k/uL (3.8-10.6) 08/15/17 06:31 RBC 2.89 m/uL (3.80-5.40) L 08/15/17 06:31 Hgb 8.9 gm/dL (11.4-16.0) L 08/15/17 06:31 Hct 29.5 % (34.0-46.0) L 08/15/17 06:31 MCV 102.0 fL (80.0-100.0) H 08/15/17 06:31 MCH 30.9 pg (25.0-35.0) 08/15/17 06:31 MCHC 30.3 g/dL (31.0-37.0) L 08/15/17 06:31 RDW 15.9 % (11.5-15.5) H 08/15/17 06:31 Plt Count 234 k/uL (150-450) 08/15/17 06:31 Neutrophils % 82 % 08/12/17 07:26 Lymphocytes % 9 % 08/12/17 07:26 Monocytes % 7 % 08/12/17 07:26 Eosinophils % 0 % 08/12/17 07:26 Basophils % 0 % 08/12/17 07:26 Neutrophils # 5.6 k/uL (1.3-7.7) 08/12/17 07:26 Lymphocytes # 0.6 k/uL (1.0-4.8) L 08/12/17 07:26 Monocytes # 0.5 k/uL (0-1.0) 08/12/17 07:26 Eosinophils # 0.0 k/uL (0-0.7) 08/12/17 07:26 Basophils # 0.0 k/uL (0-0.2) 08/12/17 07:26 Hypochromasia Marked 08/15/17 06:31 Anisocytosis Slight 08/13/17 06:53 Macrocytosis Slight 08/15/17 06:31 ESR 41 mm/hr (0-20) H 08/08/17 07:42 Sample Site rrad 08/08/17 10:47 ABG pH 7.27 (7.35-7.45) L 08/08/17 10:47 ABG pCO2 36 mmHg (35-45) 08/08/17 10:47 ABG pO2 74 mmHg (83-108) L 08/08/17 10:47 ABG HCO3 16 mmol/L (21-25) L 08/08/17 10:47 ABG Total CO2 17 mmol/L (19-24) L 08/08/17 10:47 ABG O2 Saturation 93.0 % (94-97) L 08/08/17 10:47 ABG Base Excess -10.0 mmol/L 08/08/17 10:47 FiO2 21 % 08/08/17 10:47 Sodium 144 mmol/L (137-145) 08/15/17 06:31 Potassium 3.7 mmol/L (3.5-5.1) 08/15/17 06:31 Chloride 113 mmol/L (98-107) H 08/15/17 06:31 Carbon Dioxide 26 mmol/L (22-30) 08/15/17 06:31 Anion Gap 5 mmol/L 08/15/17 06:31 BUN 12 mg/dL (7-17) 08/15/17 06:31 Creatinine 0.70 mg/dL (0.52-1.04) 08/15/17 06:31 Est GFR (MDRD) Af Amer >60 (>60 ml/min/1.73 sqM) 08/15/17 06:31 Est GFR (MDRD) Non-Af >60 (>60 ml/min/1.73 sqM) 08/15/17 06:31 Glucose 87 mg/dL (74-99) 08/15/17 06:31 POC Glucose (mg/dL) 223 mg/dL (75-99) H 08/15/17 19:54 POC Glu Hide Spreader ID April Rayo 08/15/17 19:[address] Glu mg/dL 140 mg/dL 08/08/17 07:42 Hemoglobin A1c 6.5 % (4.2-6.1) H 08/08/17 07:42 Plasma Lactic Acid Al 1.1 mmol/L (0.7-2.0) 08/08/17 08:20 Calcium 8.4 mg/dL (8.4-10.2) 08/15/17 06:31 Magnesium 2.0 mg/dL (1.6-2.3) 08/13/17 07:04 Total Bilirubin <0.1 mg/dL (0.2-1.3) L 08/14/17 06:32 AST 17 U/L (14-36) 08/14/17 06:32 ALT 20 U/L (9-52) 08/14/17 06:32 Alkaline Phosphatase 116 U/L (38-126) 08/14/17 06:32 C-Reactive Protein 324.2 mg/L (<10.0) H 08/08/17 07:42 Total Protein 4.9 g/dL (6.3-8.2) L 08/14/17 06:32 Albumin 2.4 g/dL (3.5-5.0) L 08/14/17 06:32 Prealbumin 14.0 mg/dL (18.0-42.0) L 08/08/17 07:42 Vitamin B12 610 pg/mL (239-931) 08/09/17 06:45 RBC Folate 960 ng/mL (280 - 791) H 08/09/17 06:45 TSH 0.155 mIU/L (0.465-4.680) L 08/09/17 06:45 Free T4 1.01 ng/dL (0.78-2.19) 08/09/17 06:45 Urine Color Light Yellow 08/10/17 00:35 Urine Appearance Clear (Clear) 08/10/17 00:35 Urine pH 7.0 (5.0-8.0) 08/10/17 00:35 Ur Specific [place] 1.009 (1.001-1.035) 08/10/17 00:35 Urine Protein Trace (Negative) H 08/10/17 00:35 Urine Glucose (UA) Negative (Negative) 08/10/17 00:35 Urine Ketones Negative (Negative) 08/10/17 00:35 Urine Blood Negative (Negative) 08/10/17 00:35 Urine Nitrite Negative (Negative) 08/10/17 00:35 Urine Bilirubin Negative (Negative) 08/10/17 00:35 Urine Urobilinogen <2.0 mg/dL (<2.0) 08/10/17 00:35 Ur Leukocyte Esterase Negative (Negative) 08/10/17 00:35 Vancomycin Trough 26.8 ug/mL 08/10/17 05:15 Random Vancomycin 20.8 ug/mL 08/11/17 05:12 Microbiology 08/14/17 06:39 Blood Blood Culture - Preliminary No Growth after 24 hours 08/14/17 06:32 Blood Blood Culture - Preliminary No Growth after 24 hours 08/10/17 05:15 Blood Blood Culture - Preliminary No Growth after 120 hours 08/08/17 14:03 Blood Blood Culture Gram Stain - Final 08/08/17 14:03 Blood Blood Culture - Final Staphylococcus aureus 08/10/17 05:25 Blood Blood Culture Gram Stain - Final 08/10/17 05:25 Blood Blood Culture - Final Staphylococcus aureus 08/10/17 05:25 Blood Blood Culture - Preliminary 08/08/17 08:40 Ankle - Right Anaerobic Culture - Final 08/08/17 11:22 Blood Blood Culture Gram Stain - Final 08/08/17 11:22 Blood Blood Culture - Final Staphylococcus aureus 08/08/17 08:40 Ankle - Right Gram Stain - Final 08/08/17 08:40 Ankle - Right Wound Culture - Final Staphylococcus aureus 08/07/17 18:48 Blood Blood Culture Gram Stain - Final 08/07/17 18:48 Blood Blood Culture - Final Staph aureus 08/07/17 18:48 Blood Blood Culture - Final 08/08/17 14:03 Blood Blood Culture - Final 08/08/17 11:22 Blood Blood Culture - Final Assessment and Plan (1) Cellulitis and abscess of right leg Status: Acute (2) Trimalleolar fracture of ankle, open Status: Acute (3) Sepsis Narrative/Plan: 56-year-old woman presents to hospital with increasing difficulties related to her right ankle. She presented emergency center on 07/04/2017 at which point in time there is evidence of a trimalleolar fracture. She was placed into mobilization and referred to orthopedics. She's been in immobilization since that time. However is developed a significant ulceration to the lateral aspect of the ankle with grossly necrotic material. The foot has become quite swollen especially at the ankle with significant and gross deformity. There is erythema and purulent drainage. This has been cultured. Blood cultures are also positive at this point in time. Both the wound and blood cultures appear to be staph aureus. She does have a history of MRSA. Constantly vancomycin therapy is utilize. Until cultures are finalized antibiotic therapy is also enhance with ceftazidime with her history of prior acientobacter infection. Follow blood cultures are been requested As noted multiple discussions occurred with the orthopedic team and vascular surgery. The ankle was deemed to be nonsalvageable and she was taken to the operating room and a [id number] amputation occurred. Since then she showing some ongoing improvements. Blood cultures are in process of hopefully will be negative. Once we have negative blood cultures IV access with the PICC line may be placed to complete at least 4 weeks of intravenous antibiotic therapy with Ancef Although the site of infection is removed, she still had high-grade bacteremia for many days and will need an appropriate course of intravenous antibiotic therapy. She understands and looks forward to going to rehab. Plan is for PICC line placement tomorrow. We'll place a thin hydrocolloid to the left heel protected. Status: Acute (4) Septic arthritis of right ankle Status: Acute
[2017-08-16] MEDS: ceFAZolin 2 GM in SODIUM CHLORIDE 0.9% 100 ML IVPB SCH ×3 (00:07→16:42)
[2017-08-16] MEDS: HYDROCORTISONE SUCCINATE 100 MG/2 ML VIAL IV SCH ×3 (00:08→16:42)
[2017-08-16] MEDS: ALPRAZolam 0.5 MG TAB PO PRN ×2 (00:16→20:35)
[2017-08-16 01:42] VITALS: RESP 16
[2017-08-16 07:22] LABS: Glucose,Whole Blood 118 mg/dL (75-99)
[2017-08-16] MEDS: GABAPENTIN 300 MG CAP PO SCH ×3 (07:40→22:13)
[2017-08-16] MEDS: NICOTINE 14MG/24HR PATCH TRANSDERM SCH (07:41)
[2017-08-16] MEDS: MULTIVITAMINS, THERA 1 EACH TAB PO SCH (07:41)
[2017-08-16] MEDS: HYDROXYCHLOROQUINE SULFATE 200 MG TAB PO SCH (07:41)
[2017-08-16] MEDS: FAMOTIDINE 20 MG TAB PO SCH ×2 (07:41→20:33)
[2017-08-16] MEDS: METOPROLOL SUCCINATE (ER) 50 MG TAB.ER.24H PO SCH (07:41)
[2017-08-16] MEDS: ENOXAPARIN 40 MG/0.4 ML SYRINGE SQ SCH (07:41)
[2017-08-16] MEDS: FOLIC ACID 1 MG TAB PO SCH (07:41)
[2017-08-16] MEDS: DULoxetine HCL 60 MG CAPSULE.DR PO SCH (07:41)
[2017-08-16] MEDS: INSULIN LISPRO (humaLOG) 300 UNIT/3 ML VIAL SQ SCH ×4 (07:42→20:33)
[2017-08-16] MEDS: POLYETHYLENE GLYCOL 3350 17 GM POWD.PACK PO SCH (07:49)
[2017-08-16] MEDS: LACOSAMIDE 50 MG TABLET PO SCH (07:58)
[2017-08-16] MEDS: traMADol 50 MG TAB PO PRN ×3 (08:01→22:13)
[2017-08-16] MEDS: IPRATROPIUM-ALBUTEROL 3 ML NEB INHALATION SCH ×4 (09:03→20:15)
--- NOTE | 2017-08-16 10:39 | P.PN ---
Subjective Progress Note Date: 08/16/17 Principal diagnosis: Ankle wound cellulitis 56-year-old female that was admitted with a ankle with cellulitis, patient was evaluated by Dr Forde. She had BKA on Monday. Patient did have MSSA bacteremia. Receiving IV antibiotic therapy. I did discuss with Dr. Berg is for long-term. IV antibiotic therapy for 4 weeks secondary to high-grade bacteremia. Does not pay has been controlled no nausea no vomiting tolerating oral at this time. Objective - Vital Signs Vital signs: Vital Signs Temp 98.3 F 08/16/17 07:00 Pulse 72 08/16/17 09:12 Resp 16 08/16/17 07:00 BP 161/80 08/16/17 07:00 Pulse Ox 95 08/16/17 07:00 Intake & Output 08/15/17 08/16/17 08/16/17 18:59 06:59 18:59 Intake Total 580 750 Balance 580 750 Intake: Intake, IV Titration 100 100 Amount ceFAZolin 2 gm In Sodium 100 100 Chloride 0.9% 100 ml @ 100 mls/hr IVPB Q8HR [facility] Rx#:[id number] Oral 480 650 Other: Voiding Method Toilet # Voids 2 2 - Exam gen:alert and oriented lungs:clear to auscultation heart:s1s2 abdomen:soft and depressible,non tender ext:s/p BKA with dressing in place lt foot showing evidence of ulceration on lt heel - Labs CBC & Chem 7: 08/15/17 06:31 08/15/17 06:31 Labs: Abnormal Lab Results - Last 24 Hours (Table) 08/15/17 08/15/17 08/15/17 Range/Units 11:38 16:44 19:54 POC Glucose (mg/dL) 182 H 149 H 223 H (75-99) mg/dL 08/16/17 Range/Units 07:17 POC Glucose (mg/dL) 118 H (75-99) mg/dL Microbiology - Last 24 Hours (Table) 08/14/17 06:39 Blood Culture - Preliminary Blood No Growth after 48 hours 08/14/17 06:32 Blood Culture - Preliminary Blood No Growth after 48 hours 08/10/17 05:15 Blood Culture - Final Blood No Growth after 144 hours Assessment and Plan (1) Septic arthritis of right ankle Narrative/Plan: Status post amputation BKA Dressing changes per dr forde Status: Acute (2) Bacteremia Status: Acute (3) Adrenal insufficiency Narrative/Plan: Currently on Solu-Cortef We'll discharge on prednisone taper. Patient is saying that her docotr was planning on weaning her off completely off the prednisone. Status: Acute (4) Neuropathy Narrative/Plan: Continue gabapentin Status: Acute (5) Diabetes mellitus Narrative/Plan: Currently diet controlled A1c at home was 6.5. Accu-Cheks mostly acceptable. An inpatient. The treatment plan should be adjusted once patient is eating her normal diet. Would consider metformin or Januvia. Status: Acute Plan: Plan for discharge today to [facility] with IV antibiotic therapy Time with Patient: Greater than 30
--- NOTE | 2017-08-16 11:04 | P.PN ---
Subjective Progress Note Date: 08/16/17 Principal diagnosis: Infected right ankle joint with large wound on the lateral aspect of the ankle, status post right below the knee amputation This is a 56-year-old female with past medical history of rheumatoid arthritis, Raynaud's peripheral neuropathy, osteoarthritis, hypertension and MRSA infection, who presented to the emergency department on 08/07/2017 with right ankle wound with cellulitis and purulent drainage associated with right trimalleolar fracture for which she has been following with orthopedic surgery since 07/04/2017. Initially the fracture was reduced and splinted and she had been placed in the specialty boot but had developed significant ulceration to the lateral surface of the right ankle. The swelling in her ankles had increased as well as the deformity of the right ankle. The patient became quite ill with fevers and chills at which time she was brought in to the emergency department for evaluation and was subsequently admitted. Blood cultures and right ankle wound cultures were positive for Staphylococcus aureus , and infectious disease service is managing the antibiotics. X-ray of her right ankle from 08/07/2017 showed evidence of further destruction of the lateral dome of the talus and the possibility of septic arthritis and osteomyelitis could not be excluded. This was followed up with a MRI of the right ankle which did not demonstrate any evidence of osteomyelitis. Vascular surgery determined that the right foot was not salvageable related to gross destruction of the right ankle joint without the possibility of any orthopedic fixation. Pulmonary preop clearance was requested due to patient's smoking history and presumed COPD. On examination the patient is seen in the preop area , awake alert, appears chronically ill. She does complain of right ankle tenderness, but appears reasonably comfortable at the moment. She states she had never been diagnosed with COPD or any other chronic pulmonary conditions. She she had been a three-quarter to 1 pack a day smoker for the past 47 years. She is not on any inhalers or nebulizers at home. She states she is active on a regular basis without any significant limitation. No significant dyspnea on the day-to-day basis. No congestion, no wheezing, no cough. No active pulmonary symptoms. Lung sounds are clear, diminished at the bases. Patient is on room air with saturations around 93-96%. The patient is seen today 08/12/2017 in follow-up on the surgical floor. She is status post right below the knee amputation. This is postoperative day #1. She is currently awake and alert in no acute distress. She has no pulmonary complaints. No shortness of breath, cough or congestion. She's been afebrile. She is maintaining O2 saturations up to 100% on 3 L/m per nasal cannula. She' s currently on cefazolin. Her wound and blood cultures were positive for methicillin sensitive Staphylococcus aureus. 08/14/2017 patient seen in follow-up. She is doing very well from the pulmonary standpoint. No specific complaints. She denies wheezing, denies chest congestion or cough. Compliant with her incentive spirometer, her IS effort are today is 750-1000. She has been getting up with a walker, bearing weight on the left foot. On examination she is awake alert, states her pain is reasonably controlled. Lung sounds are clear, no rhonchi, no wheezing. Right below the knee stump with surgical dressing is clean dry and intact. On 08/15/2017 patient seen on the surgical floor. She is resting in bed, no signs of distress noted. She is compliant with her incentive spirometer. She has been getting up with her walker to the bathroom, actively participates in her physical therapy. Lung sounds are clear, no wheezing, no chest congestion. She denies shortness of breath, cough, or sputum production. Right BKA stump covered with a surgical dressing. Patient has had no febrile episodes. She is on room air. Anticipate discharge to medical [place] [facility] tomorrow. Patient is scheduled for insertion of the PICC line today or tomorrow. On 08/16/2017 and continues to improve, this is postop day #5 post right below the knee amputation. She is on room air, denies shortness of breath, compliant with her incentive spirometer. Lung sounds are clear, free of wheezes or rhonchi. Patient's repeat blood cultures from 08/14/2017 show no growth after 48 hours. Patient is scheduled for insertion of a PICC line today at 2 PM, after which discharge is anticipated to [facility]. Objective - Vital Signs Vital signs: Vital Signs Temp 98.3 F 08/16/17 07:00 Pulse 72 08/16/17 09:12 Resp 16 08/16/17 07:00 BP 161/80 08/16/17 07:00 Pulse Ox 95 08/16/17 07:00 Intake & Output 08/15/17 08/16/17 08/16/17 18:59 06:59 18:59 Intake Total 580 750 Balance 580 750 Intake: Intake, IV Titration 100 100 Amount ceFAZolin 2 gm In Sodium 100 100 Chloride 0.9% 100 ml @ 100 mls/hr IVPB Q8HR [facility] Rx#:[id number] Oral 480 650 Other: Voiding Method Toilet # Voids 2 2 - Exam Exam GENERAL EXAM: Alert, active, comfortable in no apparent distress. HEAD: Normocephalic. EYES: Normal reaction of pupils, equal size. NOSE: Clear with pink turbinates. THROAT: No erythema or exudates. NECK: No masses, no JVD. CHEST: No chest wall deformity. LUNGS: Equal air entry with no crackles, wheeze, rhonchi or dullness. CVS: S1 and S2 normal with no audible murmurs, regular rhythm. ABDOMEN: No hepatosplenomegaly, normal bowel sounds, no guarding or rigidity. SPINE: No scoliosis or deformity SKIN: No rashes CENTRAL NERVOUS SYSTEM: No focal deficits, tone is normal in all 4 extremities. Extremities: Dressing to the right below the knee surgical site is clean and dry. Peripheral pulses are intact. - Labs CBC & Chem 7: 08/15/17 06:31 08/15/17 06:31 Labs: Abnormal Lab Results - Last 24 Hours (Table) 08/15/17 08/15/17 08/15/17 Range/Units 11:38 16:44 19:54 POC Glucose (mg/dL) 182 H 149 H 223 H (75-99) mg/dL 08/16/17 Range/Units 07:17 POC Glucose (mg/dL) 118 H (75-99) mg/dL Microbiology - Last 24 Hours (Table) 08/14/17 06:39 Blood Culture - Preliminary Blood No Growth after 48 hours 08/14/17 06:32 Blood Culture - Preliminary Blood No Growth after 48 hours 08/10/17 05:15 Blood Culture - Final Blood No Growth after 144 hours Assessment and Plan Plan: Assessment: #1. Acute trimalleolar fracture of ankle, open #2. Acute cellulitis and abscess of right lower extremity #3. Acute sepsis, blood and right lower extremity wound cultures positive for Staphylococcus aureus #4. Possible right ankle septic arthritis and osteomyelitis #5. History of chronic immunosuppression secondary to Plaquenil and prednisone therapy for her underlying rheumatoid arthritis #6. History of MRSA #7. Acute leukocytosis secondary to sepsis #8. Nonsalvageable right ankle joint, status right below the knee amputation with Dr. Ortiz, postop day 3. #9. Ongoing nicotine dependence Plan: Patient currently has no active pulmonary complaints or processes. She is stable from the pulmonary standpoint. She does have [id number] history of smoking and ongoing tobacco use. She is active on a regular basis with no significant limitation in her functional status. Her lung sounds are clear, with no rhonchi, no wheezes. Continue on bronchodilators, hydrocortisone is being weaned per attending. Continue with pulmonary toileting. GI and DVT prophylaxis. Continue to increase activity as tolerated. Despite her extensive smoking history, patient has no active pulmonary complaints. Anticipate discharge today to [facility] for 4 weeks of rehabilitation and IV antibiotics. Will set up follow-up appointment with Dr. Pamla in 1 week post discharge Thank you for this consultation. I performed a history & physical examination of the patient and discussed their management with my nurse practitioner, Radha Kruse. I reviewed the nurse practitioner's note and agree with the documented findings and plan of care.
[2017-08-16 11:27] LABS: Glucose,Whole Blood 111 mg/dL (75-99)
--- NOTE | 2017-08-16 11:38 | P.DS ---
Providers Date of admission: 08/07/17 18:47 Expected date of discharge: 08/16/17 Attending physician: Narciso Saab MD Consults: 08/07/17 18:45 Consult Physician Routine Consulting Provider: Alex Bell Consult Reason/Comments: wound infection Do you want consulting provider notified?: Yes 08/08/17 07:55 Consult Physician Routine Consulting Provider: Gentry Berg Consult Reason/Comments: bacteremia, wound infection Do you want consulting provider notified?: Yes 08/08/17 08:13 Consult Physician Routine Consulting Provider: Rowdy Ortiz Consult Reason/Comments: wound infection of ankle, cellulitis, ankle fracture dislocation Do you want consulting provider notified?: Yes 08/11/17 09:48 Consult Physician Urgent Consulting Provider: Kel Palma Consult Reason/Comments: pulmonary managment Do you want consulting provider notified?: Yes Primary care physician: Noa Mae - Discharge Diagnosis(es) (1) Septic arthritis of right ankle Current Visit: Yes Status: Acute (2) Bacteremia Current Visit: Yes Status: Acute (3) Adrenal insufficiency Current Visit: Yes Status: Acute (4) Neuropathy Current Visit: Yes Status: Acute (5) Diabetes mellitus Current Visit: Yes Status: Acute Hospital Course: This is a 56-year-old female was admitted with symptoms of infection in her right ankle. Patient found to have bacteremia with MSSA. Patient was evaluated by Dr. May and ankle was thought to be unsalvageable. Decision for BKA was done this was performed last Monday by . Since patient had bacteremia patient will need long-term IV antibiotic because she had high- grade bacteremia. At this point patient will be discharged home medically large will have PICC line placed today and be discharged today. Time spent on discharge 40 minutes Patient Condition at Discharge: Good Plan - Discharge Summary New Discharge Prescriptions: New Cefazolin Sodium/D5w [Kefzol 2 Gm/D5w 100 ml] 2 gm IV Q8H #84 ml HYDROcodone/APAP 10-325MG [[place] 10-325] 1 each PO Q6H PRN tab PRN Reason: Pain Ipratropium-Albuterol Nebulize [Duoneb 0.5 mg-3 mg/3 ml Soln] 3 ml INHALATION RT-QID neb Nicotine 14Mg/24Hr Patch [Habitrol] 1 patch TRANSDERM DAILY patch traMADol HCl [Ultram] 50 mg PO Q6H PRN tab PRN Reason: Moderate Pain Continue Omeprazole [PriLOSEC] 20 mg PO DAILY Hydroxychloroquine Sulfate [Plaquenil] 200 mg PO DAILY Metoprolol Succinate (ER) [Toprol XL] 50 mg PO DAILY DULoxetine HCL [Cymbalta] 60 mg PO DAILY ALPRAZolam [Xanax] 0.5 mg PO DAILY PRN PRN Reason: Anxiety/Insomnia Lacosamide [Vimpat] 50 mg PO BID Folic Acid 1 mg PO DAILY Gabapentin [Neurontin] 300 mg PO TID Multivitamins, Thera [Multivitamin (formulary)] 1 tab PO DAILY Discontinued Ibuprofen [Motrin] 600 mg PO Q8HR PRN PRN Reason: Pain Discharge Medication List Omeprazole [PriLOSEC] 20 mg PO DAILY 02/06/16 [History] Hydroxychloroquine Sulfate [Plaquenil] 200 mg PO DAILY 06/12/16 [History] Metoprolol Succinate (ER) [Toprol XL] 50 mg PO DAILY 06/13/16 [History] ALPRAZolam [Xanax] 0.5 mg PO DAILY PRN 12/19/16 [History] DULoxetine HCL [Cymbalta] 60 mg PO DAILY 12/19/16 [History] Lacosamide [Vimpat] 50 mg PO BID 12/19/16 [History] Folic Acid 1 mg PO DAILY 08/07/17 [History] Gabapentin [Neurontin] 300 mg PO TID 08/07/17 [History] Multivitamins, Thera [Multivitamin (formulary)] 1 tab PO DAILY 08/07/17 [History ] Cefazolin Sodium/D5w [Kefzol 2 Gm/D5w 100 ml] 2 gm IV Q8H #84 ml 08/16/17 [Rx] HYDROcodone/APAP 10-325MG [[place] 10-325] 1 each PO Q6H PRN tab 08/16/17 [Rx] Ipratropium-Albuterol Nebulize [Duoneb 0.5 mg-3 mg/3 ml Soln] 3 ml INHALATION RT -QID neb 08/16/17 [Rx] Nicotine 14Mg/24Hr Patch [Habitrol] 1 patch TRANSDERM DAILY patch 08/16/17 [Rx] traMADol HCl [Ultram] 50 mg PO Q6H PRN tab 08/16/17 [Rx] Follow up Appointment(s)/Referral(s): Kel Palma MD [STAFF PHYSICIAN] - 08/25/17 9:30 am () Gentry Berg MD [STAFF PHYSICIAN] - 2 Weeks Noa Mae MD [Primary Care Provider] - 1-2 days Rowdy Ortiz MD [STAFF PHYSICIAN] - 08/23/17 (Staple removal.) Ambulatory/Diagnostic Orders: Basic Metabolic Panel [LAB.AMB] Location: Determined By Patient C Reactive Protein [LAB.AMB] Location: Determined By Patient Complete Blood Count w/diff [LAB.AMB] Location: Determined By Patient Erythrocyte Sedimentation Rate [LAB.AMB] Location: Determined By Patient Patient Instructions/Handouts: Type 2 Diabetes in Adults (DC) Activity/Diet/Wound Care/Special Instructions: dressing change 4x4 kerlex etta wrap every 48hr Discharge Disposition: TRANSFER TO SNF/ECF
[2017-08-16] MEDS: THIAMINE 100 MG TAB PO SCH ×2 (12:56→16:43)
[2017-08-16] MEDS: HYDROcodone/APAP 10-325MG 1 EACH TAB PO PRN (16:43)
[2017-08-16 17:06] LABS: Glucose,Whole Blood 126 mg/dL (75-99)
[2017-08-16 20:10] LABS: Glucose,Whole Blood 205 mg/dL (75-99)
--- NOTE | 2017-08-16 21:49 | P.PN ---
Subjective Progress Note Date: 08/16/17 Principal diagnosis: Sepsis 56-year-old female, originally from [place], presents the emergency center for increasing difficulties with her right ankle. On July 04 she did present to the emergency center with deformity to her ankle. She has a long- standing history of rheumatoid arthritis and some neuropathy. However due to dyspnea and change of her ankle in June she presented to emergency center and was sent to orthopedics. At that time she was placed into a specialty boot and was asking follow-up. Apparently in the meantime she developed a significant ulceration to the lateral surface of the ankle that has now been draining purulent material. Ankles become considerably more swollen. It's deformity has increased. The patient herself became quite ill with fevers and chills. Because of the acute change of her status she was brought back to the emergency center and admitted. With evidence of sepsis and bacteremia the infectious diseases consultation was requested. Of note the current x-rays reveal evidence of some further destruction to the ankle consistent with an acute infectious process. The patient does feel slightly better today. Eating some soup that her daughter has brought for her. The patient has been seen by orthopedics as well as vascular surgery. Apparently the ankle joint is grossly destroyed without any orthopedic fixation being possible. blood cultures are still positive at this point in time with staph aureus. Echocardiogram performed without evidence of endocarditis. As noted the ankle joint was destroyed. Because of these difficulties she was taken to the operating room and the right below the knee amputation has occurred. She is not recovering quite well with excellent pain tolerance. With 1 person assistance she's been able to get up with a walker [facility]. Objective - Vital Signs Vital signs: Vital Signs Temp 97.7 F 08/16/17 19:12 Pulse 78 08/16/17 20:31 Resp 16 08/16/17 19:12 BP 142/72 08/16/17 19:12 Pulse Ox 92 L 08/16/17 19:12 Intake & Output 08/16/17 08/16/17 08/17/17 06:59 18:59 06:59 Intake Total 750 100 Output Total 400 Balance 750 100 -400 Weight 68.039 kg Intake: Intake, IV Titration 100 100 Amount ceFAZolin 2 gm In Sodium 100 100 Chloride 0.9% 100 ml @ 100 mls/hr IVPB Q8HR [facility] Rx#:[id number] Oral 650 Output: Urine 400 Other: # Voids 2 1 - Exam 56-year-old woman who is modestly comfortable at this time. But does relate to significant discomfort to the right ankle. She denying fever, chills at this time HEENT: Anicteric conjunctiva are pink and moist nasal mucosa grossly intact without significant lesions, there is no thrush. Neck: The neck is supple without significant lymphadenopathy or thyromegaly. Lungs: There is symmetrical air entry. Heart: Regular rate and rhythm with an audible S1-S2, no S3 no S4. There is no significant murmur click or rub, PMI was nondisplaced. Abdomen: Positive bowel sounds soft and nontender without palpable masses or organomegaly. There was no guarding or rebound. Extremities: The upper extremities have excellent pulses they are symmetric, no significant petechiae or telangiectasia. No splinter hemorrhages were noted. The left lower extremity is without acute abnormalities except for changes of rheumatoid arthritis. Right lower extremity reveals evidence of the recent below the knee amputation. The dressing is dry and intact, the vascular surgeon relates that the flap is intact. The left heel has evidence of irritation Neuro she is awake alert oriented to person place and time and has no new acute gross focal sensory motor deficits - Labs CBC & Chem 7: 08/15/17 06:31 08/15/17 06:31 Labs: Abnormal Lab Results - Last 24 Hours (Table) 08/16/17 08/16/17 08/16/17 Range/Units 07:17 11:21 17:03 POC Glucose (mg/dL) 118 H 111 H 126 H (75-99) mg/dL 08/16/17 Range/Units 20:01 POC Glucose (mg/dL) 205 H (75-99) mg/dL Microbiology - Last 24 Hours (Table) 08/14/17 06:39 Blood Culture - Preliminary Blood No Growth after 48 hours 08/14/17 06:32 Blood Culture - Preliminary Blood No Growth after 48 hours 08/10/17 05:15 Blood Culture - Final Blood No Growth after 144 hours Laboratory Results WBC 6.9 k/uL (3.8-10.6) 08/15/17 06:31 RBC 2.89 m/uL (3.80-5.40) L 08/15/17 06:31 Hgb 8.9 gm/dL (11.4-16.0) L 08/15/17 06:31 Hct 29.5 % (34.0-46.0) L 08/15/17 06:31 MCV 102.0 fL (80.0-100.0) H 08/15/17 06:31 MCH 30.9 pg (25.0-35.0) 08/15/17 06:31 MCHC 30.3 g/dL (31.0-37.0) L 08/15/17 06:31 RDW 15.9 % (11.5-15.5) H 08/15/17 06:31 Plt Count 234 k/uL (150-450) 08/15/17 06:31 Neutrophils % 82 % 08/12/17 07:26 Lymphocytes % 9 % 08/12/17 07:26 Monocytes % 7 % 08/12/17 07:26 Eosinophils % 0 % 08/12/17 07:26 Basophils % 0 % 08/12/17 07:26 Neutrophils # 5.6 k/uL (1.3-7.7) 08/12/17 07:26 Lymphocytes # 0.6 k/uL (1.0-4.8) L 08/12/17 07:26 Monocytes # 0.5 k/uL (0-1.0) 08/12/17 07:26 Eosinophils # 0.0 k/uL (0-0.7) 08/12/17 07:26 Basophils # 0.0 k/uL (0-0.2) 08/12/17 07:26 Hypochromasia Marked 08/15/17 06:31 Anisocytosis Slight 08/13/17 06:53 Macrocytosis Slight 08/15/17 06:31 ESR 41 mm/hr (0-20) H 08/08/17 07:42 Sample Site rrad 08/08/17 10:47 ABG pH 7.27 (7.35-7.45) L 08/08/17 10:47 ABG pCO2 36 mmHg (35-45) 08/08/17 10:47 ABG pO2 74 mmHg (83-108) L 08/08/17 10:47 ABG HCO3 16 mmol/L (21-25) L 08/08/17 10:47 ABG Total CO2 17 mmol/L (19-24) L 08/08/17 10:47 ABG O2 Saturation 93.0 % (94-97) L 08/08/17 10:47 ABG Base Excess -10.0 mmol/L 08/08/17 10:47 FiO2 21 % 08/08/17 10:47 Sodium 144 mmol/L (137-145) 08/15/17 06:31 Potassium 3.7 mmol/L (3.5-5.1) 08/15/17 06:31 Chloride 113 mmol/L (98-107) H 08/15/17 06:31 Carbon Dioxide 26 mmol/L (22-30) 08/15/17 06:31 Anion Gap 5 mmol/L 08/15/17 06:31 BUN 12 mg/dL (7-17) 08/15/17 06:31 Creatinine 0.70 mg/dL (0.52-1.04) 08/15/17 06:31 Est GFR (MDRD) Af Amer >60 (>60 ml/min/1.73 sqM) 08/15/17 06:31 Est GFR (MDRD) Non-Af >60 (>60 ml/min/1.73 sqM) 08/15/17 06:31 Glucose 87 mg/dL (74-99) 08/15/17 06:31 POC Glucose (mg/dL) 205 mg/dL (75-99) H 08/16/17 20:01 POC Glu [employer] ID Tequila Mccann 08/16/17 20:[address] Glu mg/dL 140 mg/dL 08/08/17 07:42 Hemoglobin A1c 6.5 % (4.2-6.1) H 08/08/17 07:42 Plasma Lactic Acid Al 1.1 mmol/L (0.7-2.0) 08/08/17 08:20 Calcium 8.4 mg/dL (8.4-10.2) 08/15/17 06:31 Magnesium 2.0 mg/dL (1.6-2.3) 08/13/17 07:04 Total Bilirubin <0.1 mg/dL (0.2-1.3) L 08/14/17 06:32 AST 17 U/L (14-36) 08/14/17 06:32 ALT 20 U/L (9-52) 08/14/17 06:32 Alkaline Phosphatase 116 U/L (38-126) 08/14/17 06:32 C-Reactive Protein 324.2 mg/L (<10.0) H 08/08/17 07:42 Total Protein 4.9 g/dL (6.3-8.2) L 08/14/17 06:32 Albumin 2.4 g/dL (3.5-5.0) L 08/14/17 06:32 Prealbumin 14.0 mg/dL (18.0-42.0) L 08/08/17 07:42 Vitamin B12 610 pg/mL (239-931) 08/09/17 06:45 RBC Folate 960 ng/mL (280 - 791) H 08/09/17 06:45 TSH 0.155 mIU/L (0.465-4.680) L 08/09/17 06:45 Free T4 1.01 ng/dL (0.78-2.19) 08/09/17 06:45 Urine Color Light Yellow 08/10/17 00:35 Urine Appearance Clear (Clear) 08/10/17 00:35 Urine pH 7.0 (5.0-8.0) 08/10/17 00:35 Ur Specific [employer] 1.009 (1.001-1.035) 08/10/17 00:35 Urine Protein Trace (Negative) H 08/10/17 00:35 Urine Glucose (UA) Negative (Negative) 08/10/17 00:35 Urine Ketones Negative (Negative) 08/10/17 00:35 Urine Blood Negative (Negative) 08/10/17 00:35 Urine Nitrite Negative (Negative) 08/10/17 00:35 Urine Bilirubin Negative (Negative) 08/10/17 00:35 Urine Urobilinogen <2.0 mg/dL (<2.0) 08/10/17 00:35 Ur Leukocyte Esterase Negative (Negative) 08/10/17 00:35 Vancomycin Trough 26.8 ug/mL 08/10/17 05:15 Random Vancomycin 20.8 ug/mL 08/11/17 05:12 Microbiology 08/14/17 06:39 Blood Blood Culture - Preliminary No Growth after 48 hours 08/14/17 06:32 Blood Blood Culture - Preliminary No Growth after 48 hours 08/10/17 05:15 Blood Blood Culture - Final No Growth after 144 hours Microbiology 08/14/17 06:39 Blood Blood Culture - Preliminary No Growth after 48 hours 08/14/17 06:32 Blood Blood Culture - Preliminary No Growth after 48 hours 08/10/17 05:15 Blood Blood Culture - Final No Growth after 144 hours 08/08/17 14:03 Blood Blood Culture Gram Stain - Final 08/08/17 14:03 Blood Blood Culture - Final Staphylococcus aureus 08/10/17 05:25 Blood Blood Culture Gram Stain - Final 08/10/17 05:25 Blood Blood Culture - Final Staphylococcus aureus 08/10/17 05:25 Blood Blood Culture - Preliminary 08/08/17 08:40 Ankle - Right Anaerobic Culture - Final 08/08/17 11:22 Blood Blood Culture Gram Stain - Final 08/08/17 11:22 Blood Blood Culture - Final Staphylococcus aureus 08/08/17 08:40 Ankle - Right Gram Stain - Final 08/08/17 08:40 Ankle - Right Wound Culture - Final Staphylococcus aureus 08/07/17 18:48 Blood Blood Culture Gram Stain - Final 08/07/17 18:48 Blood Blood Culture - Final Staph aureus 08/07/17 18:48 Blood Blood Culture - Final 08/08/17 14:03 Blood Blood Culture - Final 08/08/17 11:22 Blood Blood Culture - Final Assessment and Plan (1) Cellulitis and abscess of right leg Status: Acute (2) Trimalleolar fracture of ankle, open Status: Acute (3) Sepsis Narrative/Plan: 56-year-old woman presents to hospital with increasing difficulties related to her right ankle. She presented emergency center on 07/04/2017 at which point in time there is evidence of a trimalleolar fracture. She was placed into mobilization and referred to orthopedics. She's been in immobilization since that time. However is developed a significant ulceration to the lateral aspect of the ankle with grossly necrotic material. The foot has become quite swollen especially at the ankle with significant and gross deformity. There is erythema and purulent drainage. This has been cultured. Blood cultures are also positive at this point in time. Both the wound and blood cultures appear to be staph aureus. She does have a history of MRSA. Constantly vancomycin therapy is utilize. Until cultures are finalized antibiotic therapy is also enhance with ceftazidime with her history of prior acientobacter infection. Follow blood cultures are been requested As noted multiple discussions occurred with the orthopedic team and vascular surgery. The ankle was deemed to be nonsalvageable and she was taken to the operating room and a [id number] amputation occurred. Since then she showing some ongoing improvements. Blood cultures are in process of hopefully will be negative. Once we have negative blood cultures IV access with the PICC line may be placed to complete at least 4 weeks of intravenous antibiotic therapy with Ancef Although the site of infection is removed, she still had high-grade bacteremia for many days and will need an appropriate course of intravenous antibiotic therapy. She understands and looks forward to going to rehab. Plan is for PICC line placement tomorrow. Lovenox has been held. We'll place a thin hydrocolloid to the left heel protected. Status: Acute (4) Septic arthritis of right ankle Status: Acute
[2017-08-17] MEDS: HYDROCORTISONE SUCCINATE 100 MG/2 ML VIAL IV SCH ×2 (00:22→08:07)
[2017-08-17] MEDS: ceFAZolin 2 GM in SODIUM CHLORIDE 0.9% 100 ML IVPB SCH ×2 (00:23→08:07)
[2017-08-17] MEDS: traMADol 50 MG TAB PO PRN (05:49)
[2017-08-17 07:31] LABS: Glucose,Whole Blood 106 mg/dL (75-99)
[2017-08-17 07:41] VITALS: BP 149/72; TEMP 98
[2017-08-17] MEDS: IPRATROPIUM-ALBUTEROL 3 ML NEB INHALATION SCH ×2 (07:51→11:47)
[2017-08-17] MEDS: INSULIN LISPRO (humaLOG) 300 UNIT/3 ML VIAL SQ SCH (07:58)
[2017-08-17] MEDS: GABAPENTIN 300 MG CAP PO SCH (08:07)
[2017-08-17] MEDS: LACOSAMIDE 50 MG TABLET PO SCH (08:07)
[2017-08-17] MEDS: FOLIC ACID 1 MG TAB PO SCH (08:08)
[2017-08-17] MEDS: HYDROXYCHLOROQUINE SULFATE 200 MG TAB PO SCH (08:08)
[2017-08-17] MEDS: DULoxetine HCL 60 MG CAPSULE.DR PO SCH (08:08)
[2017-08-17] MEDS: FAMOTIDINE 20 MG TAB PO SCH (08:08)
[2017-08-17] MEDS: MULTIVITAMINS, THERA 1 EACH TAB PO SCH (08:08)
[2017-08-17] MEDS: NICOTINE 14MG/24HR PATCH TRANSDERM SCH (08:08)
[2017-08-17] MEDS: POLYETHYLENE GLYCOL 3350 17 GM POWD.PACK PO SCH (08:09)
--- NOTE | 2017-08-17 10:24 | IR ---
EXAMINATION TYPE: IR cvc insert >=5 years DATE OF EXAM: 08/17/2017 COMPARISON: NONE CLINICAL HISTORY: Infection, bacteremia Needs long-term intravenous access for antibiotics. PROCEDURE: After informed consent, the skin overlying the left brachial vein was localized with ultrasound and n oted to be compressible and patent. An ultrasound image was obtained and submitted on the patient's chart. The overlying skin was prepped and draped and Lidocaine was used for local anesthesia. A ski n amna was made with a scalpel. Access was gained to the vein under ultrasound guidance with a 21 ga uge needle and a 0.018 inch wire was advanced. Access site was dilated with Peel-Away sheath and cat heter tailored to the appropriate length and advanced such that the distal tip is at the cavoatrial j unction. Spot image was obtained verifying placement. Catheter was fixed to the skin with suture an d a sterile dressing was placed following hemostasis. Catheter was aspirated and flushed with saline . Patient was discharged in stable condition without complication. Maximal barrier technique is util ized. Ultrasound image is documented on the chart. Ultrasound used with sterile technique. Fluoro time and fluoroscopic images submitted to document procedure: 32 intraoperative C-arm images, 0.2 minutes fluoroscopy time IMPRESSION: STATUS POST ULTRASOUND AND FLUOROSCOPIC GUIDED PICC LINE PLACEMENT, READY FOR USE. THIS PROCEDURE WAS PERFORMED BY THE UNDERSIGNED.
[2017-08-17] MEDS: METOPROLOL SUCCINATE (ER) 50 MG TAB.ER.24H PO SCH (10:39)
[2017-08-17] MEDS: HYDROcodone/APAP 10-325MG 1 EACH TAB PO PRN (10:58)
[2017-08-17 11:32] LABS: Glucose,Whole Blood 151 mg/dL (75-99)
[2017-08-17 11:50] VITALS: PULSE 82
--- NOTE | 2017-08-17 12:20 | P.PN ---
Subjective Progress Note Date: 08/17/17 Principal diagnosis: Ankle wound cellulitis 56-year-old female that was admitted with a ankle with cellulitis, patient was evaluated by Dr Forde. She had BKA on Monday. Patient did have MSSA bacteremia. Receiving IV antibiotic therapy. I did discuss with Dr. Berg is for long-term. IV antibiotic therapy for 4 weeks secondary to high-grade bacteremia. Does not pay has been controlled no nausea no vomiting tolerating oral at this time. Objective - Vital Signs Vital signs: Vital Signs Temp 98.0 F 08/17/17 07:00 Pulse 82 08/17/17 12:02 Resp 16 08/17/17 07:00 BP 149/72 08/17/17 07:00 Pulse Ox 97 08/17/17 07:54 Intake & Output 08/16/17 08/17/17 08/17/17 18:59 06:59 18:59 Intake Total 100 500 Output Total 1300 Balance 100 -800 Weight 68.039 kg Intake: Intake, IV Titration 100 Amount ceFAZolin 2 gm In Sodium 100 Chloride 0.9% 100 ml @ 100 mls/hr IVPB Q8HR RUBIA Rx#:[id number] Oral 500 Output: Urine 1300 Other: # Voids 3 1 - Exam gen:alert and oriented lungs:clear to auscultation heart:s1s2 abdomen:soft and depressible,non tender ext:s/p BKA with dressing in place lt foot showing evidence of ulceration on lt heel - Labs CBC & Chem 7: 08/15/17 06:31 08/15/17 06:31 Labs: Abnormal Lab Results - Last 24 Hours (Table) 08/16/17 08/16/17 08/17/17 Range/Units 17:03 20:01 07:23 POC Glucose (mg/dL) 126 H 205 H 106 H (75-99) mg/dL 08/17/17 Range/Units 11:31 POC Glucose (mg/dL) 151 H (75-99) mg/dL Microbiology - Last 24 Hours (Table) 08/14/17 06:39 Blood Culture - Preliminary Blood No Growth after 72 hours 08/14/17 06:32 Blood Culture - Preliminary Blood No Growth after 72 hours Assessment and Plan (1) Septic arthritis of right ankle Narrative/Plan: Status post amputation BKA Dressing changes per dr forde Status: Acute (2) Bacteremia Narrative/Plan: IV Ancef for 4 weeks total MSSA high-grade bacteremia Status: Acute (3) Adrenal insufficiency Narrative/Plan: Currently on Solu-Cortef We'll discharge on prednisone taper. Patient is saying that her doctor was planning on weaning her off completely off the prednisone. Status: Acute (4) Neuropathy Narrative/Plan: Continue gabapentin Status: Acute (5) Diabetes mellitus Narrative/Plan: Currently diet controlled A1c at home was 6.5. Accu-Cheks mostly acceptable as inpatient. The treatment plan should be adjusted once patient is eating her normal diet. Would consider metformin or Januvia. Status: Acute Plan: PICC line was canceled yesterday secondary to patient being on Lovenox DVT prophylaxis. PICC line placed today Plan for discharge today to [facility] with IV antibiotic therapy
== END 2017-08-17 12:40 | DRG 854 ==
LOC: EC 16:52 → 3SUR 18:47
PROVIDERS: ADMIT Internal Medicine; ATTEND Internal Medicine
PROC: B41D1ZZ Fluoroscopy of Aorta and Bilateral Lower Extremity Arteries using Low Osmolar Contrast (ICD-10-PCS; 2017-08-11)
PROC: 0Y6H0Z1 Detachment at Right Lower Leg, High, Open Approach (ICD-10-PCS; principal; 2017-08-12)
PROC: 02HV33Z Insertion of Infusion Device into Superior Vena Cava, Percutaneous Approach (ICD-10-PCS; 2017-08-17 09:33)
PROC: B518ZZA Fluoroscopy of Superior Vena Cava, Guidance (ICD-10-PCS; 2017-08-17 09:33)
DX: A41.01 Sepsis due to Methicillin susceptible Staphylococcus aureus (principal); L02.415 Cutaneous abscess of right lower limb; E11.42 Type 2 diabetes mellitus with diabetic polyneuropathy; E11.621 Type 2 diabetes mellitus with foot ulcer; M00.071 Staphylococcal arthritis, right ankle and foot; E27.3 Drug-induced adrenocortical insufficiency; S82.853B Displaced trimalleolar fracture of unspecified lower leg, initial encounter for open fracture type I or II; L03.115 Cellulitis of right lower limb; I10 Essential (primary) hypertension; M06.9 Rheumatoid arthritis, unspecified; M19.90 Unspecified osteoarthritis, unspecified site; E87.6 Hypokalemia; L80 Vitiligo; Z96.611 Presence of right artificial shoulder joint; F32.9 Major depressive disorder, single episode, unspecified; F17.200 Nicotine dependence, unspecified, uncomplicated; I73.00 Raynaud's syndrome without gangrene; E11.622 Type 2 diabetes mellitus with other skin ulcer; J44.9 Chronic obstructive pulmonary disease, unspecified; K59.00 Constipation, unspecified; T38.0X5A Adverse effect of glucocorticoids and synthetic analogues, initial encounter; S93.04XA Dislocation of right ankle joint, initial encounter; F10.10 Alcohol abuse, uncomplicated; Z82.49 Family history of ischemic heart disease and other diseases of the circulatory system; Z83.3 Family history of diabetes mellitus; Z79.899 Other long term (current) drug therapy; Z86.14 Personal history of Methicillin resistant Staphylococcus aureus infection; Z90.79 Acquired absence of other genital organ(s); Z79.1 Long term (current) use of non-steroidal anti-inflammatories (NSAID); Z90.89 Acquired absence of other organs; Z90.49 Acquired absence of other specified parts of digestive tract
CPT/HCPCS: 36200; 36415; 36569; 36600; 75625; 75716; 76937; 77001; 80048; 80053; 80202; 81003; 82607; 82747; 82805; 83036; 83605; 83735; 84132; 84134; 84439; 84443; 85025; 85027; 85652; 86140; 87040; 87070; 87075; 87077; 87186; 87205; 88307; 88311; 90715; 93005; 93306; 94640; 94760; 96365; 96375; 99284

== ENCOUNTER 2017-08-21 10:37 | Emergency (ER) | payer OTHER ==
[2017-08-21 10:50] VITALS: RESP 18
[2017-08-21 11:31] LABS: Basophils % (A) 0 %; CH 30.4; Eosinophils # (A) 0.1 k/uL (0-0.7); Eosinophils % (A) 1 %; HDW 3.11; HGB 9.9 gm/dL (11.4-16.0); Hypochromasia Marked; Luc # (Auto) 0.12; Luc % (Auto) 1; Lymphocytes # (A) 0.7 k/uL (1.0-4.8); Lymphocytes % (A) 7 %; MCH 30.6 pg (25.0-35.0); MCV 101.9 fL (80.0-100.0); Macrocytosis Slight; Mean Platelet Volume 6.9; Monocytes # (A) 0.4 k/uL (0-1.0); Monocytes % (A) 4 %; Neutrophils # (A) 9.1 k/uL (1.3-7.7); Neutrophils % (A) 87 %; RBC 3.24 m/uL (3.80-5.40); RDW 15.3 % (11.5-15.5); WBC 10.4 k/uL (3.8-10.6); WBC (Perox) 10.74
--- NOTE | 2017-08-21 11:31 | ED ---
General Adult HPI - General Chief complaint: Recheck/Abnormal Lab/Rx Stated complaint: Post Op Bleeding Time Seen by Provider: 08/21/17 10:40 Source: patient, EMS Mode of arrival: EMS Limitations: no limitations - History of Present Illness Initial comments: 56 years old female status post below knee amputation: The amputation was done on August [address] Ortiz, patient noticed blood oozing yesterday about 2 in the early afternoon. She denies any known trauma to the leg or any fall, she does have neuropathy in his chest might have bumped it without knowing. Denies any headaches no chest pain or shortness of breath, abdominal pain no frequency urgency dysuria - Related Data Home Medications Medication Instructions Recorded Confirmed Omeprazole [PriLOSEC] 20 mg PO DAILY@0600 02/06/16 08/21/17 Hydroxychloroquine Sulfate 200 mg PO DAILY 06/12/16 08/21/17 [Plaquenil] Metoprolol Succinate (ER) [Toprol 50 mg PO DAILY 06/13/16 08/21/17 XL] ALPRAZolam [Xanax] 0.5 mg PO DAILY PRN 12/19/16 08/21/17 DULoxetine HCL [Cymbalta] 60 mg PO DAILY 12/19/16 08/21/17 Lacosamide [Vimpat] 50 mg PO BID 12/19/16 08/21/17 Folic Acid 1 mg PO DAILY 08/07/17 08/21/17 Gabapentin [Neurontin] 300 mg PO TID 08/07/17 08/21/17 Multivitamins, Thera [Multivitamin 1 tab PO DAILY 08/07/17 08/21/17 (formulary)] HYDROcodone/APAP 10-325MG [[place] 1 tab PO Q6H PRN 08/21/17 08/21/17 10-325] Ipratropium-Albuterol Nebulize 3 ml INHALATION RT-Q6H 08/21/17 08/21/17 [Duoneb 0.5 mg-3 mg/3 ml Soln] Potassium Chloride [Klor-Con 20] 40 meq PO DAILY 08/21/17 08/21/17 predniSONE See Taper PO DAILY 08/21/17 08/21/17 Previous Rx's Medication Instructions Recorded Cefazolin Sodium/D5w [Kefzol 2 2 gm IV Q8H #84 ml 08/16/17 Gm/D5w 100 ml] Nicotine 14Mg/24Hr Patch [Habitrol] 1 patch TRANSDERM DAILY patch 08/16/17 traMADol HCl [Ultram] 50 mg PO Q6H PRN tab 08/16/17 Allergies Allergy/AdvReac Type Severity Reaction Status Date / Time No Known Allergies Allergy Verified 08/21/17 10:44 Review of Systems ROS Statement: Those systems with pertinent positive or pertinent negative responses have been documented in the HPI. ROS Other: All systems not noted in ROS Statement are negative. Past Medical History Past Medical History: Hypertension, Osteoarthritis (OA), Rheumatoid Arthritis ( RA) Additional Past Medical History / Comment(s): neuropathy Vitiligo, Raynaud's peripheral neuropathy. History of Any Multi-Drug Resistant Organisms: MRSA Date of last positivie culture/infection: 06/11/12 MDRO Source:: Unknown Past Surgical History: Appendectomy, Section, Joint Replacement, Orthopedic Surgery, Tonsillectomy, Tubal Ligation Additional Past Surgical History / Comment(s): right shoulder replacement, right leg amputation Past Anesthesia/Blood Transfusion Reactions: No Reported Reaction Past Psychological History: Depression Smoking Status: Current every day smoker Past Alcohol Use History: Occasional Past Drug Use History: None Reported - Past Family History Mother Family Medical History: No Reported History, Diabetes Mellitus, Hyperlipidemia, Hypertension Father Family Medical History: Diabetes Mellitus, Hypertension Sister(s) Family Medical History: No Reported History Son(s) Family Medical History: No Reported History General Exam - General Exam Comments Initial Comments: General: The patient is awake and alert, in no distress, and does not appear acutely ill. Skin: Skin is warm and dry and no rashes or lesions are noted. Eye: Pupils are equal, round and reactive to light, extra-ocular movements are intact; there is normal conjunctiva bilaterally. Ears, nose, mouth and throat: There are moist mucous membranes and no oral lesions. Neck: The neck is supple, there is no tenderness or JVD. Cardiovascular: There is a regular rate and rhythm. No murmur, rub or gallop is appreciated. Respiratory: To auscultation bilateral, no wheezing no rhonchi no distress respiratory norris noticed Gastrointestinal: Soft, non-distended, non-tender abdomen without masses or organomegaly noted. There is no rebound or guarding present. Bowel sounds are unremarkable. Back: There is no tenderness to palpation in the midline. There is no obvious deformity. Musculoskeletal: examination of the distal end of the right lower extremity revealed sutures are in place, no respiratory mouth was seen at one area, wound was cleaned and washed in the ER for an hour and no further wheezing was noticed at one area and noticed very small amount of clear discharge Neurological: CN II-XII intact, Cranial nerves III through XII are intact. There are no obvious motor or sensory deficits. Coordination appears grossly intact. Speech is normal. Psychiatric: Cooperative, appropriate mood & affect, normal judgment. Limitations: no limitations Course Vital Signs 08/21/17 10:39 Temperature 97.6 F Pulse Rate 80 Respiratory 18 Rate Blood Pressure 146/80 O2 Sat by Pulse 94 L Oximetry - Reevaluation(s) Reevaluation #1: I spoke with the Dr. Angel Ortiz agreed to see patient in his office tomorrow, that's August 22 08/21/17 12:31 08/21/17 12:39 will do the pressure dressing on the right leg wound Medical Decision Making - Lab Data Result diagrams: 08/21/17 11:25 08/21/17 11:25 Lab Results 08/21/17 08/21/17 08/21/17 Range/Units 11:25 11:25 11:25 WBC 10.4 (3.8-10.6) k/uL RBC 3.24 L (3.80-5.40) m/uL Hgb 9.9 L (11.4-16.0) gm/dL Hct 33.0 L (34.0-46.0) % MCV 101.9 H (80.0-100.0) fL MCH 30.6 (25.0-35.0) pg MCHC 30.0 L (31.0-37.0) g/dL RDW 15.3 (11.5-15.5) % Plt Count 304 (150-450) k/uL Neutrophils % 87 % Lymphocytes % 7 % Monocytes % 4 % Eosinophils % 1 % Basophils % 0 % Neutrophils # 9.1 H (1.3-7.7) k/uL Lymphocytes # 0.7 L (1.0-4.8) k/uL Monocytes # 0.4 (0-1.0) k/uL Eosinophils # 0.1 (0-0.7) k/uL Basophils # 0.0 (0-0.2) k/uL Hypochromasia Marked Macrocytosis Slight PT 10.3 (9.0-12.0) sec INR 1.0 (<1.2) Sodium 140 (137-145) mmol/L Potassium 4.1 (3.5-5.1) mmol/L Chloride 109 H (98-107) mmol/L Carbon Dioxide 25 (22-30) mmol/L BUN 8 (7-17) mg/dL Creatinine 0.62 (0.52-1.04) mg/dL Est GFR (MDRD) Af Amer >60 (>60 ml/min/1.73 sqM) Est GFR (MDRD) Non-Af >60 (>60 ml/min/1.73 sqM) Glucose 136 H (74-99) mg/dL Calcium 8.8 (8.4-10.2) mg/dL Total Bilirubin 0.3 (0.2-1.3) mg/dL AST 16 (14-36) U/L ALT 21 (9-52) U/L Alkaline Phosphatase 116 (38-126) U/L Total Protein 6.0 L (6.3-8.2) g/dL Albumin 3.1 L (3.5-5.0) g/dL Disposition Clinical Impression: Leg wound, right Disposition: HOME SELF-CARE Condition: Fair Instructions: Acute Wound Care (ED) Referrals: Noa Mae MD [Primary Care Provider] - 1-2 days Rowdy Ortiz MD [STAFF PHYSICIAN] - 1-2 days
[2017-08-21 11:40] LABS: Prothrombin Time 10.3 sec (9.0-12.0)
[2017-08-21 11:45] LABS: AST 16 U/L (14-36); Alkaline Phosphatase 116 U/L (38-126); Blood Urea Nitrogen 8 mg/dL (7-17); Calcium 8.8 mg/dL (8.4-10.2); Chloride 109 mmol/L (98-107); Glucose 136 mg/dL (74-99); Non-African American GFR(MDRD) >60 (>60 ml/min/1.73 sqM); Potassium 4.1 mmol/L (3.5-5.1); Sodium 140 mmol/L (137-145); Total Bilirubin 0.3 mg/dL (0.2-1.3)
[2017-08-21 12:00] LABS: ALT 21 U/L (9-52); Carbon Dioxide 25 mmol/L (22-30)
[2017-08-21] MEDS ORDERED: PIPERACILLIN-TAZOBACTAM 3.375 GM in DEXTROSE/WATER 1 50ML.BAG IVPB STA (12:30)
[2017-08-21] MEDS ORDERED: AMOXIC-POT CLAV 875-125MG 1 EACH TAB PO STA (12:54)
[2017-08-21 13:00] VITALS: BP 135/79; PULSE 89; TEMP 98
[2017-08-21 14:11] LABS: Anion Gap 6 mmol/L
== END 2017-08-21 13:22 | disposition home or self-care (01) ==
LOC: EC 10:37
DX: S81.801A Unspecified open wound, right lower leg, initial encounter (principal); I10 Essential (primary) hypertension; M06.9 Rheumatoid arthritis, unspecified; F32.9 Major depressive disorder, single episode, unspecified; F17.200 Nicotine dependence, unspecified, uncomplicated; Z89.511 Acquired absence of right leg below knee; Z86.14 Personal history of Methicillin resistant Staphylococcus aureus infection; Z79.51 Long term (current) use of inhaled steroids; Z79.899 Other long term (current) drug therapy
CPT/HCPCS: 36415; 80053; 85025; 85610; 87070; 87205; 99283

== ENCOUNTER → 2017-09-25 | Outpatient (CLI) | payer OTHER ==
[2017-09-25 19:24] LABS: Potassium 4.5 mmol/L (3.5-5.1)
== END | disposition home or self-care (01) ==
LOC: MMGSC 16:12
PROVIDERS: ATTEND Family Medicine
DX: E87.6 Hypokalemia (principal)
CPT/HCPCS: 36415; 80051

== ENCOUNTER → 2017-11-30 | Outpatient (CLI) | payer OTHER ==
[2017-11-30 20:16] LABS: ALT 34 U/L (9-52); AST 29 U/L (14-36); Albumin 3.5 g/dL (3.5-5.0); Alkaline Phosphatase 269 U/L (38-126); Anion Gap 13 mmol/L; Blood Urea Nitrogen 15 mg/dL (7-17); Calcium 9.3 mg/dL (8.4-10.2); Carbon Dioxide 22 mmol/L (22-30); Chloride 106 mmol/L (98-107); Glucose 123 mg/dL (74-99); Sodium 141 mmol/L (137-145); Total Bilirubin 0.3 mg/dL (0.2-1.3); Total Protein 6.6 g/dL (6.3-8.2)
[2017-11-30 20:17] LABS: Anisocytosis Slight; Basophils # (A) 0.1 k/uL (0-0.2); Basophils % (A) 1 %; Eosinophils # (A) 0.1 k/uL (0-0.7); Eosinophils % (A) 1 %; HGB 12.8 gm/dL (11.4-16.0); Hypochromasia Marked; Lymphocytes # (A) 1.9 k/uL (1.0-4.8); Lymphocytes % (A) 23 %; MCH 26.5 pg (25.0-35.0); MCHC 30.5 g/dL (31.0-37.0); MCV 86.8 fL (80.0-100.0); Mean Platelet Volume 10.9; Monocytes # (A) 0.6 k/uL (0-1.0); Monocytes % (A) 7 %; Neutrophils # (A) 5.5 k/uL (1.3-7.7); Neutrophils % (A) 67 %; RBC 4.84 m/uL (3.80-5.40); RDW 17.3 % (11.5-15.5); WBC 8.3 k/uL (3.8-10.6)
[2017-11-30 20:22] LABS: Platelet Count 93 k/uL (150-450)
[2017-11-30 20:37] LABS: Potassium 2.2 mmol/L (3.5-5.1)
[2017-11-30 20:47] LABS: Polychromasia Present
[2017-12-01 01:26] LABS: Hemoglobin A1C 6.6 % (4.0-6.0)
== END | disposition home or self-care (01) ==
LOC: MMGSC 17:35
PROVIDERS: ATTEND Family Medicine
DX: D64.9 Anemia, unspecified (principal); M06.9 Rheumatoid arthritis, unspecified; R73.09 Other abnormal glucose
CPT/HCPCS: 36415; 80053; 83036; 85025

== ENCOUNTER → 2017-12-30 | Outpatient (CLI) | payer OTHER ==
--- NOTE | 2017-12-30 21:31 | XR ---
EXAMINATION TYPE: XR chest 2V DATE OF EXAM: 12/30/2017 COMPARISON: 12/19/2016 HISTORY: 57-year-old female with right rib pain TECHNIQUE: PA and lateral views FINDINGS: Heart normal size. Mild elongation thoracic aorta. Diffuse interstitial prominence and hyperinflation . Bilateral thoracic to form an ileus with multiple bilateral rib fractures. Reverse right total shou lder arthroplasty. Osteopenia. IMPRESSION: Chronic changes, suspect underlying COPD. Multiple bilateral rib fracture deformities most of which a ppear chronic. Refer to separate right rib series.
--- NOTE | 2017-12-30 21:33 | XR ---
EXAMINATION TYPE: Right rib series DATE OF EXAM: 12/30/2017 COMPARISON: NONE HISTORY: 57-year-old female with right rib pain and cough for 2 weeks TECHNIQUE: 4 views FINDINGS: Extensive right lateral thoracic deformity. There are underlying chronic rib fractures that are heale d laterally. However, multiple mildly displaced acute rib fractures are also present, including the l ateral sixth, seventh, eighth, and ninth ribs. The seventh rib fracture appears to be segmental. IMPRESSION: Mixed acute and chronic rib fractures. Acute fractures involved the sixth through ninth lateral ribs. The seventh rib fracture is segmental.
== END | disposition home or self-care (01) ==
LOC: RADXRMAIN 11:35
PROVIDERS: ATTEND Family Medicine
DX: M84.48XG Pathological fracture, other site, subsequent encounter for fracture with delayed healing (principal); R07.81 Pleurodynia; M85.88 Other specified disorders of bone density and structure, other site
CPT/HCPCS: 71046

== ENCOUNTER → 2018-01-19 | Outpatient (CLI) | payer OTHER ==
--- NOTE | 2018-01-23 07:51 | MM ---
Reason for exam: screening (asymptomatic). History: Patient is postmenopausal. Physical Findings: A clinical breast exam by your physician is recommended on an annual basis and results should be correlated with mammographic findings. MG 3D Screening Mammo W/Cad Bilateral CC and MLO view(s) were taken. The breast tissue is heterogeneously dense. This may lower the sensitivity of mammography. No significant changes when compared with prior studies. ASSESSMENT: Negative, BI-RAD 1 RECOMMENDATION: Routine screening mammogram of both breasts in 1 year.
== END | disposition home or self-care (01) ==
LOC: RADMAMWWP 11:24
PROVIDERS: ATTEND Family Medicine
DX: Z12.31 Encounter for screening mammogram for malignant neoplasm of breast (principal)
CPT/HCPCS: 77063; 77067

== ENCOUNTER 2018-02-10 10:25 | Emergency (ER) | payer OTHER ==
[2018-02-10 10:41] VITALS: BP 109/62; PULSE 74; RESP 17; TEMP 98.5
--- NOTE | 2018-02-10 11:15 | XR ---
EXAMINATION TYPE: XR wrist complete RT , 4 VIEWS DATE OF EXAM ORDERED: 02/10/2018 HISTORY: Pain. COMPARISON: None. FINDINGS: No fracture, dislocation or other acute osseous lesion is seen. IMPRESSION: NO ACUTE OSSEOUS LESION.
--- NOTE | 2018-02-10 11:32 | ED ---
General Adult HPI - General Chief complaint: Extremity Injury, Upper Stated complaint: FALL, RT WRIST INJURY Time Seen by Provider: 02/10/18 10:45 Source: family, RN notes reviewed Mode of arrival: wheelchair Limitations: no limitations - History of Present Illness Initial comments: 57 yo female presents to the ER with cc of inability to straighten the right wrist. She states that on Monday she just became unable to lift up her right wrist. She states that on Monday she fell onto the right wrist but there is no pain or injuries. She states that she thought her function would return but it has not. She denies any pain or discomfort. She states she just cannot lift up the right wrist or the fingers. She denies any nausea or vomiting with this. She denies any head injury she denies any neck pain any shoulder pain. She does have a history of shoulder surgery to this shoulder in the past. They were concerned due to the inability to move the wrist so they thought they should be seen. Patient denies any recent fever, chills, shortness of breath, chest pain, back pain, abdominal pain, nausea vomiting, numbness or tingling, dysuria or hematuria, constipation or diarrhea, headaches or visual changes, or any other current symptoms. - Related Data Home Medications Medication Instructions Recorded Confirmed Omeprazole [PriLOSEC] 20 mg PO DAILY@0600 02/06/16 10/23/17 Hydroxychloroquine Sulfate 200 mg PO DAILY 06/12/16 10/23/17 [Plaquenil] Metoprolol Succinate (ER) [Toprol 50 mg PO DAILY 06/13/16 10/23/17 XL] Lacosamide [Vimpat] 50 mg PO BID 12/19/16 10/23/17 Gabapentin [Neurontin] 300 mg PO TID 08/07/17 10/23/17 Potassium Chloride [Klor-Con 20] 20 meq PO DAILY 08/21/17 10/23/17 Allergies Allergy/AdvReac Type Severity Reaction Status Date / Time No Known Allergies Allergy Verified 02/10/18 10:38 Review of Systems ROS Statement: Those systems with pertinent positive or pertinent negative responses have been documented in the HPI. ROS Other: All systems not noted in ROS Statement are negative. Past Medical History Past Medical History: Hypertension, Osteoarthritis (OA), Rheumatoid Arthritis ( RA) Additional Past Medical History / Comment(s): neuropathy Vitiligo, Raynaud's peripheral neuropathy. History of Any Multi-Drug Resistant Organisms: MRSA Date of last positivie culture/infection: 06/11/12 MDRO Source:: Unknown Past Surgical History: Appendectomy, Section, Joint Replacement, Orthopedic Surgery, Tonsillectomy, Tubal Ligation Additional Past Surgical History / Comment(s): right shoulder replacement, right leg amputation Past Anesthesia/Blood Transfusion Reactions: No Reported Reaction Past Psychological History: Depression Smoking Status: Current every day smoker - Past Family History Mother Family Medical History: No Reported History, Diabetes Mellitus, Hyperlipidemia, Hypertension Father Family Medical History: Diabetes Mellitus, Hypertension Sister(s) Family Medical History: No Reported History Son(s) Family Medical History: No Reported History General Exam - General Exam Comments Initial Comments: General: The patient is awake and alert, in no distress, and does not appear acutely ill. Neck: The neck is supple, there is no tenderness. Cardiovascular: There is a regular rate and rhythm. No murmur, rub or gallop is appreciated. Respiratory: Lungs are clear to auscultation, respirations are non-labored, breath sounds are equal. No wheezes, stridor, rales, or rhonchi. Musculoskeletal: Sensation intact with 2+ pulses throughout the right upper extremity. Patient does have very minimal extension of the right wrist and the right fingers. Full flexion patient has good power plant mechanic squeeze. Full range of motion of the right elbow and the right shoulder. Neurological: CN II-XII intact, There are no obvious motor or sensory deficits. Coordination appears grossly intact. Speech is normal. Skin: Skin is warm and dry and no rashes or lesions are noted. Psychiatric: Normal mood and affect. Limitations: no limitations Course Vital Signs 02/10/18 10:38 Temperature 98.5 F Pulse Rate 74 Respiratory 17 Rate Blood Pressure 109/62 O2 Sat by Pulse 97 Oximetry Procedures - Orthopedic Splinting/Casting Injury #1 Side: right Upper Extremity Injury Location: short arm, wrist Upper Extremity Immobilizer: wrist splint Medical Decision Making - Medical Decision Making 57-year-old female presents with what appears to be a radial nerve palsy injury to the right wrist. At this time she was placed in a splint and we discussed follow-up with or so. We did discuss expected outcome. We discussed return parameters all questions. Patient family stated they understood and management this plan. All questions have been answered. They will be discharged. - Radiology Data Radiology results: report reviewed, image reviewed Disposition Clinical Impression: Acute radial nerve palsy of right upper extremity Disposition: HOME SELF-CARE Condition: Stable Instructions: Radial Nerve Palsy (ED) Additional Instructions: Please use medication as discussed. Please follow up with family doctor if symptoms have not improved over the next two days. Please return to the emergency room if your symptoms increase or worsen or for any other concerns. Referrals: Noa Mae MD [Primary Care Provider] - 1-2 days Chano Calderon MD [Medical Doctor] - 1-2 days Time of Disposition: 11:32
== END 2018-02-10 11:40 | disposition home or self-care (01) ==
LOC: EC 10:25
DX: G56.31 Lesion of radial nerve, right upper limb (principal); F17.200 Nicotine dependence, unspecified, uncomplicated; M06.9 Rheumatoid arthritis, unspecified; I10 Essential (primary) hypertension; Z86.14 Personal history of Methicillin resistant Staphylococcus aureus infection; Z79.899 Other long term (current) drug therapy; Z96.611 Presence of right artificial shoulder joint; Z98.890 Other specified postprocedural states; W19.XXXA Unspecified fall, initial encounter
CPT/HCPCS: 29125; 99283

== ENCOUNTER 2018-04-27 18:32 | Inpatient (IN) | payer OTHER ==
--- NOTE | 2018-04-27 18:37 | ED ---
General Adult HPI - General Stated complaint: vomiting Time Seen by Provider: 04/27/18 18:34 Source: RN notes reviewed, old records reviewed - History of Present Illness Initial comments: This is a 57-year-old female brought in by family, patient's poor strain secondary to clinical condition and advanced alcoholic disease. Patient coming in for evaluation regarding weakness falls altered mental state. Anorexia. Not eating loss of weight and not feeling well. Patient states she feels weak 4-5 days. Unable to ambulate or walk - Related Data Home Medications Medication Instructions Recorded Confirmed Omeprazole [PriLOSEC] 20 mg PO DAILY@0600 02/06/16 10/23/17 Hydroxychloroquine Sulfate 200 mg PO DAILY 06/12/16 10/23/17 [Plaquenil] Metoprolol Succinate (ER) [Toprol 50 mg PO DAILY 06/13/16 10/23/17 XL] Lacosamide [Vimpat] 50 mg PO BID 12/19/16 10/23/17 Gabapentin [Neurontin] 300 mg PO TID 08/07/17 10/23/17 Potassium Chloride [Klor-Con 20] 20 meq PO DAILY 08/21/17 10/23/17 Allergies Allergy/AdvReac Type Severity Reaction Status Date / Time No Known Allergies Allergy Verified 04/27/18 18:42 Review of Systems ROS Statement: Those systems with pertinent positive or pertinent negative responses have been documented in the HPI. ROS Other: All systems not noted in ROS Statement are negative. Past Medical History Past Medical History: Hypertension, Osteoarthritis (OA), Rheumatoid Arthritis ( RA) Additional Past Medical History / Comment(s): neuropathy Vitiligo, Raynaud's peripheral neuropathy. History of Any Multi-Drug Resistant Organisms: MRSA Date of last positivie culture/infection: 06/11/12 MDRO Source:: Unknown Past Surgical History: Appendectomy, Section, Joint Replacement, Orthopedic Surgery, Tonsillectomy, Tubal Ligation Additional Past Surgical History / Comment(s): right shoulder replacement, right leg amputation Past Anesthesia/Blood Transfusion Reactions: No Reported Reaction Past Psychological History: Depression Smoking Status: Current every day smoker - Past Family History Mother Family Medical History: No Reported History, Diabetes Mellitus, Hyperlipidemia, Hypertension Father Family Medical History: Diabetes Mellitus, Hypertension Sister(s) Family Medical History: No Reported History Son(s) Family Medical History: No Reported History General Exam Limitations: altered mental status General appearance: alert, in no apparent distress, lethargic, cachectic Head exam: Present: atraumatic, normocephalic, normal inspection Eye exam: Present: normal appearance, PERRL, EOMI. Absent: scleral icterus, conjunctival injection, periorbital swelling ENT exam: Present: normal exam, mucous membranes moist Neck exam: Present: normal inspection. Absent: tenderness, meningismus, lymphadenopathy Respiratory exam: Present: normal lung sounds bilaterally. Absent: respiratory distress, wheezes, rales, rhonchi, stridor Cardiovascular Exam: Present: regular rate, normal rhythm, normal heart sounds. Absent: systolic murmur, diastolic murmur, rubs, gallop, clicks GI/Abdominal exam: Present: soft, normal bowel sounds. Absent: distended, tenderness, guarding, rebound, rigid Extremities exam: Present: normal inspection, full ROM, normal capillary refill. Absent: tenderness, pedal edema, joint swelling, calf tenderness Back exam: Present: normal inspection Neurological exam: Present: alert, oriented X3, CN II-XII intact Psychiatric exam: Present: normal affect, normal mood Skin exam: Present: warm, dry, intact, normal color. Absent: rash Course Vital Signs 04/27/18 18:38 Temperature 98.2 F Pulse Rate 69 Respiratory 18 Rate Blood Pressure 126/84 O2 Sat by Pulse 96 Oximetry - Reevaluation(s) Reevaluation #1: 04/27/18 19:50 Medical record is reviewed EKG Findings - EKG Comments: EKG Findings:: EKG shows sinus tachycardia rate 110, PA 174, QRS 104, QTC 387 Medical Decision Making - Medical Decision Making 57 female the ER for evaluation, patient comes in with weakness multiple falls, altered mental state. Patient has history of alcohol disease. Patient be admitted alcohol withdrawal protocol, potassium replacement. - Lab Data Result diagrams: 04/27/18 19:00 04/27/18 19:00 Lab Results 04/27/18 04/27/18 04/27/18 Range/Units 19:00 19:00 19:00 WBC 15.0 H (3.8-10.6) k/uL RBC 4.13 (3.80-5.40) m/uL Hgb 13.8 (11.4-16.0) gm/dL Hct 41.7 (34.0-46.0) % MCV 100.8 H (80.0-100.0) fL MCH 33.4 (25.0-35.0) pg MCHC 33.2 (31.0-37.0) g/dL RDW 18.8 H (11.5-15.5) % Plt Count 227 (150-450) k/uL Neutrophils % 83 % Lymphocytes % 12 % Monocytes % 2 % Eosinophils % 2 % Basophils % 0 % Neutrophils # 12.5 H (1.3-7.7) k/uL Lymphocytes # 1.8 (1.0-4.8) k/uL Monocytes # 0.4 (0-1.0) k/uL Eosinophils # 0.3 (0-0.7) k/uL Basophils # 0.0 (0-0.2) k/uL Anisocytosis Slight Macrocytosis Moderate PT (9.0-12.0) sec INR (<1.2) APTT (22.0-30.0) sec Sodium 132 L (137-145) mmol/L Potassium 2.5 L* (3.5-5.1) mmol/L Chloride 100 (98-107) mmol/L Carbon Dioxide 21 L (22-30) mmol/L Anion Gap 11 mmol/L BUN 15 (7-17) mg/dL Creatinine 0.70 (0.52-1.04) mg/dL Est GFR (CKD-EPI)AfAm >90 (>60 ml/min/1.73 sqM) Est GFR (CKD-EPI)NonAf >90 (>60 ml/min/1.73 sqM) Glucose 126 H (74-99) mg/dL Plasma Lactic Acid Al (0.7-2.0) mmol/L Calcium 8.7 (8.4-10.2) mg/dL Phosphorus 2.8 (2.5-4.5) mg/dL Magnesium 2.0 (1.6-2.3) mg/dL Total Bilirubin 1.2 (0.2-1.3) mg/dL AST 30 (14-36) U/L ALT 28 (9-52) U/L Alkaline Phosphatase 170 H (38-126) U/L Ammonia (<30) umol/L Total Creatine Kinase 79 (30-135) U/L Total Protein 6.0 L (6.3-8.2) g/dL Albumin 3.1 L (3.5-5.0) g/dL Lipase 57 (23-300) U/L Salicylates <1.0 mg/dL Acetaminophen <10.0 ug/mL Serum Alcohol <10 mg/dL 04/27/18 04/27/18 Range/Units 19:00 19:00 WBC (3.8-10.6) k/uL RBC (3.80-5.40) m/uL Hgb (11.4-16.0) gm/dL Hct (34.0-46.0) % MCV (80.0-100.0) fL MCH (25.0-35.0) pg MCHC (31.0-37.0) g/dL RDW (11.5-15.5) % Plt Count (150-450) k/uL Neutrophils % % Lymphocytes % % Monocytes % % Eosinophils % % Basophils % % Neutrophils # (1.3-7.7) k/uL Lymphocytes # (1.0-4.8) k/uL Monocytes # (0-1.0) k/uL Eosinophils # (0-0.7) k/uL Basophils # (0-0.2) k/uL Anisocytosis Macrocytosis PT 9.6 (9.0-12.0) sec INR 1.0 (<1.2) APTT 23.3 (22.0-30.0) sec Sodium (137-145) mmol/L Potassium (3.5-5.1) mmol/L Chloride (98-107) mmol/L Carbon Dioxide (22-30) mmol/L Anion Gap mmol/L BUN (7-17) mg/dL Creatinine (0.52-1.04) mg/dL Est GFR (CKD-EPI)AfAm (>60 ml/min/1.73 sqM) Est GFR (CKD-EPI)NonAf (>60 ml/min/1.73 sqM) Glucose (74-99) mg/dL Plasma Lactic Acid Al 1.8 (0.7-2.0) mmol/L Calcium (8.4-10.2) mg/dL Phosphorus (2.5-4.5) mg/dL Magnesium (1.6-2.3) mg/dL Total Bilirubin (0.2-1.3) mg/dL AST (14-36) U/L ALT (9-52) U/L Alkaline Phosphatase (38-126) U/L Ammonia 27 (<30) umol/L Total Creatine Kinase (30-135) U/L Total Protein (6.3-8.2) g/dL Albumin (3.5-5.0) g/dL Lipase (23-300) U/L Salicylates mg/dL Acetaminophen ug/mL Serum Alcohol mg/dL - Radiology Data Radiology results: report reviewed (CT brain negative for acute disease), image reviewed Disposition Clinical Impression: Altered mental status, Delirium due to general medical condition, Hypokalemia, Weakness, Falls Disposition: ADMITTED IP TO THIS HOSP Condition: Fair Is patient prescribed a controlled substance at d/c from ED?: No Referrals: Noa Mae MD [Primary Care Provider] - 1-2 days
[2018-04-27] MEDS ORDERED: ONDANSETRON 4 MG/2 ML VIAL IVP STA (18:41)
[2018-04-27] MEDS ORDERED: SODIUM CHLORIDE 0.9% 500 ML IV STA (18:41)
[2018-04-27] MEDS ORDERED: SODIUM CHLORIDE 0.9% 1,000 ML IV STA ×2 (18:41)
[2018-04-27] MEDS ORDERED: LORazepam 2 MG/ML INJ IV STA (18:42)
[2018-04-27] MEDS ORDERED: PANTOPRAZOLE 40 MG/10 ML VIAL IVP STA (18:42)
[2018-04-27 19:09] LABS: Anisocytosis Slight; Basophils % (A) 0 %; Eosinophils # (A) 0.3 k/uL (0-0.7); Eosinophils % (A) 2 %; HCT 41.7 % (34.0-46.0); HGB 13.8 gm/dL (11.4-16.0); Lymphocytes # (A) 1.8 k/uL (1.0-4.8); Lymphocytes % (A) 12 %; MCH 33.4 pg (25.0-35.0); MCHC 33.2 g/dL (31.0-37.0); MCV 100.8 fL (80.0-100.0); Macrocytosis Moderate; Mean Platelet Volume 8.6; Monocytes # (A) 0.4 k/uL (0-1.0); Monocytes % (A) 2 %; Neutrophils # (A) 12.5 k/uL (1.3-7.7); Neutrophils % (A) 83 %; Platelet Count 227 k/uL (150-450); RBC 4.13 m/uL (3.80-5.40); RDW 18.8 % (11.5-15.5)
[2018-04-27 19:20] LABS: Partial Thromboplastin Time 23.3 sec (22.0-30.0); Prothrombin Time 9.6 sec (9.0-12.0)
[2018-04-27 19:26] LABS: ALT 28 U/L (9-52); AST 30 U/L (14-36); Acetaminophen <10.0 ug/mL; Albumin 3.1 g/dL (3.5-5.0); Alcohol <10 mg/dL; Alkaline Phosphatase 170 U/L (38-126); Anion Gap 11 mmol/L; Blood Urea Nitrogen 15 mg/dL (7-17); Calcium 8.7 mg/dL (8.4-10.2); Carbon Dioxide 21 mmol/L (22-30); Chloride 100 mmol/L (98-107); Glucose 126 mg/dL (74-99); Lipase 57 U/L (23-300); Phosphorus 2.8 mg/dL (2.5-4.5); Salicylate <1.0 mg/dL; Sodium 132 mmol/L (137-145); Total Bilirubin 1.2 mg/dL (0.2-1.3)
[2018-04-27 19:28] LABS: Lactic Acid, Venous 1.8 mmol/L (0.7-2.0); Potassium 2.5 mmol/L (3.5-5.1)
[2018-04-27] MEDS ORDERED: LORazepam 2 MG/ML INJ IV PRN ×3 (19:41)
[2018-04-27] MEDS ORDERED: THIAMINE 100 MG/ML 2 ML VIAL IVPB STA (19:41)
--- NOTE | 2018-04-27 19:43 | CT ---
EXAMINATION TYPE: CT brain wo con DATE OF EXAM: 04/27/2018 COMPARISON: 12/19/2016 HISTORY: pain. altered mental status CT DLP: 1072.30 mGycm Automated exposure control for dose reduction was used. FINDINGS: Ventricles and sulci appear normal. There is no mass effect nor midline shift. There is no sign of in tracranial hemorrhage. The calvarium appears intact. There is incomplete pneumatization of the mastoi d air cells. IMPRESSION: NEGATIVE CT SCAN OF THE BRAIN. THERE IS EVIDENCE OF MASTOIDITIS. NO CHANGE.
[2018-04-27] MEDS: POTASSIUM CHLORIDE 20 MEQ in WATER FOR INJECTION 1 100ML.BAG IVPB SCH ×2 (19:53→22:23)
[2018-04-27] MEDS: THIAMINE 100 MG TAB PO SCH (19:56)
[2018-04-27 19:59] LABS: Creatine Kinase MB 6.7 ng/mL (0.0-2.4); Troponin I 0.095 ng/mL (0.000-0.034)
--- NOTE | 2018-04-27 20:47 | P.HPIM ---
History of Present Illness H&P Date: 04/27/18 Chief Complaint: Confusion Is a 57-year-old female with past medical history of ABUSE was admitted to the hospital with increased confusion the last several days the patient has been getting worse all over over the last several days the patient has not been eating well and remained weak the patient currently able to give some history appears to be sleepy after getting Ativan in the ER Review of systems and systems has been reviewed all negative and positive findings as per hpi Past Medical History: Hypertension, Osteoarthritis (OA), Rheumatoid Arthritis ( RA) Additional Past Medical History / Comment(s): neuropathy Vitiligo, Raynaud's peripheral neuropathy. History of Any Multi-Drug Resistant Organisms: MRSA Date of last positivie culture/infection: 06/11/12 MDRO Source:: Unknown Past Surgical History: Appendectomy, Section, Joint Replacement, Orthopedic Surgery, Tonsillectomy, Tubal Ligation Additional Past Surgical History / Comment(s): right shoulder replacement, right leg amputation Past Anesthesia/Blood Transfusion Reactions: No Reported Reaction Past Psychological History: Depression Smoking Status: Current every day smoker - Past Family History Mother Family Medical History: No Reported History, Diabetes Mellitus, Hyperlipidemia, Hypertension Father Family Medical History: Diabetes Mellitus, Hypertension Sister(s) Family Medical History: No Reported History Son(s) Family Medical History: No Reported History Constitutional: Weak Eyes: Anicteric sclerae, moist conjunctiva, no lid-lag PERRLA ENMT: cn grossly intact Neck: Supple, FROM, no masses, or JVD No carotid bruits No thyromegaly Lungs: Clear to auscultation Clear to percussion Normal respiratory effort, no accessory muscle use Cardiovascular: Heart regular in rate and rhythm, No murmurs, gallops, or rubs No peripheral edema Abdominal: Soft Nontender, no guarding, rebound or rigidity Abdomen moving with respiration Normoactive bowel sounds No hepatomegaly, No splenomegaly No palpable mass No abdominal wall hernia noted Skin: Normal temperature, tone, texture, turgor No induration No subcutaneous nodules No rash, lesions No ulcers Extremities: No digital cyanosis No clubbing Pedal pulses intact and symmetrical Radial pulses intact and symmetrical Normal gait and station No calf tenderness Psychiatric:Alert and oriented to person, place and time Appropriate affect Intact judgement Neuro: Generalized weakness Assessment and plan Confusion likely related to encephalopathy from chronic alcohol abuse and also hepatic encephalopathy cannot be ruled out we'll start the patient on lactulose and also we will start empiric antibiotics for any possible spontaneous bacterial peritonitis Currently no evidence of withdrawals but will start the patient on CIWA scale and when necessary Ativan Generalized weakness Hypokalemia we'll replace Explained to the family that prognosis is poor if the patient continues to abuse alcohol Past Medical History Past Medical History: Hypertension, Osteoarthritis (OA), Rheumatoid Arthritis ( RA) Additional Past Medical History / Comment(s): neuropathy Vitiligo, Raynaud's peripheral neuropathy. History of Any Multi-Drug Resistant Organisms: MRSA Date of last positivie culture/infection: 06/11/12 MDRO Source:: Unknown Past Surgical History: Appendectomy, Section, Joint Replacement, Orthopedic Surgery, Tonsillectomy, Tubal Ligation Additional Past Surgical History / Comment(s): right shoulder replacement, right leg amputation Past Anesthesia/Blood Transfusion Reactions: No Reported Reaction Past Psychological History: Depression Smoking Status: Current every day smoker - Past Family History Mother Family Medical History: No Reported History, Diabetes Mellitus, Hyperlipidemia, Hypertension Father Family Medical History: Diabetes Mellitus, Hypertension Sister(s) Family Medical History: No Reported History Son(s) Family Medical History: No Reported History Medications and Allergies Home Medications Medication Instructions Recorded Confirmed Type Omeprazole [PriLOSEC] 20 mg PO DAILY 02/06/16 10/23/17 History Lacosamide [Vimpat] 50 mg PO BID 12/19/16 10/23/17 History Gabapentin [Neurontin] 300 mg PO DIRECTED 08/07/17 10/23/17 History Alendronate Sodium 70 mg PO Q7D 04/27/18 History DULoxetine HCL [Cymbalta] 30 mg PO DAILY 04/27/18 History Folic Acid 1 mg PO DAILY 04/27/18 History Methotrexate Sodium [Methotrexate] 7.5 mg PO TU 04/27/18 History Allergies Allergy/AdvReac Type Severity Reaction Status Date / Time No Known Allergies Allergy Verified 04/27/18 20:31 Physical Exam Vitals: Vital Signs Temp Pulse Resp BP Pulse Ox 04/27/18 18:38 98.2 F 69 18 126/84 96 Intake and Output 04/27/18 04/27/18 04/27/18 06:59 14:59 22:59 Other: Weight 49.895 kg Results CBC & Chem 7: 04/27/18 19:00 04/27/18 19:00 Labs: Abnormal Lab Results - Last 24 Hours (Table) 04/27/18 04/27/18 04/27/18 Range/Units 19:00 19:00 19:00 WBC 15.0 H (3.8-10.6) k/uL MCV 100.8 H (80.0-100.0) fL RDW 18.8 H (11.5-15.5) % Neutrophils # 12.5 H (1.3-7.7) k/uL Sodium 132 L (137-145) mmol/L Potassium 2.5 L* (3.5-5.1) mmol/L Carbon Dioxide 21 L (22-30) mmol/L Glucose 126 H (74-99) mg/dL Alkaline Phosphatase 170 H (38-126) U/L CK-MB (CK-2) 6.7 H* (0.0-2.4) ng/mL Troponin I 0.095 H* (0.000-0.034) ng/mL Total Protein 6.0 L (6.3-8.2) g/dL Albumin 3.1 L (3.5-5.0) g/dL
[2018-04-27] MEDS ORDERED: NALOXONE 0.4 MG/ML 1 ML VIAL IV PRN (20:48)
[2018-04-27] MEDS ORDERED: ONDANSETRON 4 MG/2 ML VIAL IVP PRN (20:48)
[2018-04-27 20:55] LABS: Hepatitis A AB IgM Index 0.02; Hepatitis A Antibody IgM NEGATIVE
[2018-04-27] MEDS: DEXTROSE 5%-0.45% NACL 1,000 ML IV SCH (22:22)
[2018-04-27] MEDS: cefTRIAXone IN SWFI 1,000 MG/10 ML SYRINGE IVP SCH (22:27)
[2018-04-27] MEDS: LACTULOSE 20 GM/30 ML CUP PO SCH (22:42)
[2018-04-28 00:35] LABS: Hepatitis B Core IgM Non-Reactive (Non-Reactive)
[2018-04-28 01:23] LABS: Appearance,Urine Cloudy (Clear); Bacteria,Urine Few /hpf; Bilirubin,Urine Negative (Negative); Blood,Urine Negative (Negative); Budding Yeast,Urine Occasional /hpf; Color,Urine Yellow; Glucose,Urine (UA) Negative (Negative); Ketones,Urine Negative (Negative); Leukocyte Esterase,Urine Large (Negative); Nitrite,Urine Negative (Negative); Protein,Urine Trace (Negative); RBC,Urine 1 /hpf (0-5); Specific Gravity,Urine 1.004 (1.001-1.035); Squamous Epithelial Cell,Urine 9 /hpf (0-4); Urobilinogen,Urine <2.0 mg/dL (<2.0); WBC,Urine 7 /hpf (0-5)
[2018-04-28 01:24] LABS: Amphetamine Screen,Urine Not Detected (NotDetected); Barbiturate Screen,Urine Not Detected (NotDetected); Benzodiazepines Screen,Urine Not Detected (NotDetected); Cocaine Screen,Urine Not Detected (NotDetected); Methadone Screen, Urine Not Detected (NotDetected); Opiate Screen,Urine Not Detected (NotDetected); Oxycodone Screen, Urine Not Detected (NotDetected); Phencyclidine Screen,Urine Not Detected (NotDetected); Tricyclic Antidepressant,Urine Not Detected (NotDetected); Urn Cannabinoid Scrn Not Detected (NotDetected)
[2018-04-28 07:54] LABS: Anisocytosis Slight; Basophils % (A) 0 %; Eosinophils # (A) 0.2 k/uL (0-0.7); Eosinophils % (A) 2 %; HCT 35.6 % (34.0-46.0); HGB 11.7 gm/dL (11.4-16.0); Lymphocytes # (A) 2.4 k/uL (1.0-4.8); Lymphocytes % (A) 24 %; MCH 33.5 pg (25.0-35.0); MCHC 32.8 g/dL (31.0-37.0); MCV 102.2 fL (80.0-100.0); Macrocytosis Moderate; Monocytes # (A) 0.4 k/uL (0-1.0); Monocytes % (A) 4 %; Neutrophils # (A) 6.8 k/uL (1.3-7.7); Neutrophils % (A) 69 %; Platelet Count 187 k/uL (150-450); RBC 3.48 m/uL (3.80-5.40); RDW 18.4 % (11.5-15.5); WBC 9.9 k/uL (3.8-10.6)
[2018-04-28 08:05] LABS: ALT 30 U/L (9-52); AST 21 U/L (14-36); Albumin 2.3 g/dL (3.5-5.0); Alkaline Phosphatase 144 U/L (38-126); Anion Gap 7 mmol/L; Blood Urea Nitrogen 12 mg/dL (7-17); Carbon Dioxide 23 mmol/L (22-30); Chloride 108 mmol/L (98-107); Glucose 104 mg/dL (74-99); Sodium 138 mmol/L (137-145); Total Bilirubin 0.7 mg/dL (0.2-1.3); Total Protein 4.7 g/dL (6.3-8.2)
[2018-04-28] MEDS ORDERED: Potassium Replacement Protocol 1 EACH MISC MISCELLANE PRN (08:20)
[2018-04-28] MEDS: LACTULOSE 20 GM/30 ML CUP PO SCH ×2 (09:04→21:51)
[2018-04-28] MEDS: POTASSIUM CHLORIDE ER 20 MEQ TAB.ER PO SCH ×3 (09:04→13:43)
[2018-04-28] MEDS: DEXTROSE 5%-0.45% NACL 1,000 ML IV SCH ×2 (09:04→21:40)
[2018-04-28] MEDS: MULTIVITAMINS, THERA 1 EACH TAB PO SCH (10:49)
[2018-04-28] MEDS: ENOXAPARIN 40 MG/0.4 ML SYRINGE SQ SCH (10:49)
[2018-04-28] MEDS: THIAMINE 100 MG TAB PO SCH ×2 (10:49→16:22)
--- NOTE | 2018-04-28 11:49 | P.PN ---
Subjective Progress Note Date: 04/28/18 Principal diagnosis: Patient still sleepy but able to give some history No complaint of chest pain or shortness of breath Constitutional: No acute distress, sleepy but arousable Eyes: Anicteric sclerae, moist conjunctiva, no lid-lag PERRLA ENMT: Carotid milligrams grossly intact Neck: Supple, FROM, no masses, or JVD No carotid bruits No thyromegaly Lungs: Clear to auscultation Clear to percussion Normal respiratory effort, no accessory muscle use Cardiovascular: Heart regular in rate and rhythm, No murmurs, gallops, or rubs No peripheral edema Abdominal: Soft Nontender, no guarding, rebound or rigidity Abdomen moving with respiration Normoactive bowel sounds No hepatomegaly, No splenomegaly No palpable mass No abdominal wall hernia noted Skin: Normal temperature, tone, texture, turgor No induration No subcutaneous nodules No rash, lesions No ulcers Extremities: No digital cyanosis No clubbing Pedal pulses intact and symmetrical Radial pulses intact and symmetrical Normal gait and station No calf tenderness Psychiatric:Alert and oriented to person, place and time Appropriate affect Intact judgement Neuro: Generalized weakness Laboratory Results - last 24 hr 04/27/18 04/27/18 04/27/18 19:00 19:00 19:00 WBC 15.0 H RBC 4.13 Hgb 13.8 Hct 41.7 MCV 100.8 H MCH 33.4 MCHC 33.2 RDW 18.8 H Plt Count 227 Neutrophils % 83 Lymphocytes % 12 Monocytes % 2 Eosinophils % 2 Basophils % 0 Neutrophils # 12.5 H Lymphocytes # 1.8 Monocytes # 0.4 Eosinophils # 0.3 Basophils # 0.0 Anisocytosis Slight Macrocytosis Moderate PT INR APTT Sodium 132 L Potassium 2.5 L* Chloride 100 Carbon Dioxide 21 L Anion Gap 11 BUN 15 Creatinine 0.70 Est GFR (CKD-EPI)AfAm >90 Est GFR (CKD-EPI)NonAf >90 Glucose 126 H Plasma Lactic Acid Al Calcium 8.7 Phosphorus 2.8 Magnesium 2.0 Total Bilirubin 1.2 AST 30 ALT 28 Alkaline Phosphatase 170 H Ammonia Total Creatine Kinase 79 CK-MB (CK-2) 6.7 H* CK-MB (CK-2) Rel Index 8.5 Troponin I 0.095 H* Total Protein 6.0 L Albumin 3.1 L Lipase 57 Urine Color Urine Appearance Urine pH Ur Specific [place] Urine Protein Urine Glucose (UA) Urine Ketones Urine Blood Urine Nitrite Urine Bilirubin Urine Urobilinogen Ur Leukocyte Esterase Urine RBC Urine WBC Ur Squamous Epith Cells Urine Bacteria Urine Yeast (Budding) Salicylates <1.0 Urine Opiates Screen Ur Oxycodone Screen Urine Methadone Screen Ur Propoxyphene Screen Acetaminophen <10.0 Ur Barbiturates Screen U Tricyclic Antidepress Ur Phencyclidine Scrn Ur Amphetamines Screen U Methamphetamines Scrn U Benzodiazepines Scrn Urine Cocaine Screen U Marijuana (THC) Screen Serum Alcohol <10 Hepatitis A IgM Ab Hep Bs Antigen Hep B Core IgM Ab Hep C IgG Ab 04/27/18 04/27/18 04/27/18 19:00 19:00 19:00 WBC RBC Hgb Hct MCV MCH MCHC RDW Plt Count Neutrophils % Lymphocytes % Monocytes % Eosinophils % Basophils % Neutrophils # Lymphocytes # Monocytes # Eosinophils # Basophils # Anisocytosis Macrocytosis PT 9.6 INR 1.0 APTT 23.3 Sodium Potassium Chloride Carbon Dioxide Anion Gap BUN Creatinine Est GFR (CKD-EPI)AfAm Est GFR (CKD-EPI)NonAf Glucose Plasma Lactic Acid Al 1.8 Calcium Phosphorus Magnesium Total Bilirubin AST ALT Alkaline Phosphatase Ammonia 27 Total Creatine Kinase CK-MB (CK-2) CK-MB (CK-2) Rel Index Troponin I Total Protein Albumin Lipase Urine Color Urine Appearance Urine pH Ur Specific [place] Urine Protein Urine Glucose (UA) Urine Ketones Urine Blood Urine Nitrite Urine Bilirubin Urine Urobilinogen Ur Leukocyte Esterase Urine RBC Urine WBC Ur Squamous Epith Cells Urine Bacteria Urine Yeast (Budding) Salicylates Urine Opiates Screen Ur Oxycodone Screen Urine Methadone Screen Ur Propoxyphene Screen Acetaminophen Ur Barbiturates Screen U Tricyclic Antidepress Ur Phencyclidine Scrn Ur Amphetamines Screen U Methamphetamines Scrn U Benzodiazepines Scrn Urine Cocaine Screen U Marijuana (THC) Screen Serum Alcohol Hepatitis A IgM Ab Hep Bs Antigen Non-Reactive Hep B Core IgM Ab Non-Reactive Hep C IgG Ab Non-Reactive 04/27/18 04/28/18 04/28/18 19:06 00:42 01:00 WBC RBC Hgb Hct MCV MCH MCHC RDW Plt Count Neutrophils % Lymphocytes % Monocytes % Eosinophils % Basophils % Neutrophils # Lymphocytes # Monocytes # Eosinophils # Basophils # Anisocytosis Macrocytosis PT INR APTT Sodium Potassium Chloride Carbon Dioxide Anion Gap BUN Creatinine Est GFR (CKD-EPI)AfAm Est GFR (CKD-EPI)NonAf Glucose Plasma Lactic Acid Al Calcium Phosphorus Magnesium Total Bilirubin AST ALT Alkaline Phosphatase Ammonia Total Creatine Kinase CK-MB (CK-2) CK-MB (CK-2) Rel Index Troponin I 0.106 H* Total Protein Albumin Lipase Urine Color Urine Appearance Urine pH Ur Specific [place] Urine Protein Urine Glucose (UA) Urine Ketones Urine Blood Urine Nitrite Urine Bilirubin Urine Urobilinogen Ur Leukocyte Esterase Urine RBC Urine WBC Ur Squamous Epith Cells Urine Bacteria Urine Yeast (Budding) Salicylates Urine Opiates Screen Not Detected Ur Oxycodone Screen Not Detected Urine Methadone Screen Not Detected Ur Propoxyphene Screen Not Detected Acetaminophen Ur Barbiturates Screen Not Detected U Tricyclic Antidepress Not Detected Ur Phencyclidine Scrn Not Detected Ur Amphetamines Screen Not Detected U Methamphetamines Scrn Not Detected U Benzodiazepines Scrn Not Detected Urine Cocaine Screen Not Detected U Marijuana (THC) Screen Not Detected Serum Alcohol Hepatitis A IgM Ab NEGATIVE Hep Bs Antigen Hep B Core IgM Ab Hep C IgG Ab 04/28/18 04/28/18 04/28/18 01:00 07:14 07:14 WBC 9.9 RBC 3.48 L Hgb 11.7 Hct 35.6 MCV 102.2 H MCH 33.5 MCHC 32.8 RDW 18.4 H Plt Count 187 Neutrophils % 69 Lymphocytes % 24 Monocytes % 4 Eosinophils % 2 Basophils % 0 Neutrophils # 6.8 Lymphocytes # 2.4 Monocytes # 0.4 Eosinophils # 0.2 Basophils # 0.0 Anisocytosis Slight Macrocytosis Moderate PT INR APTT Sodium Potassium Chloride Carbon Dioxide Anion Gap BUN Creatinine Est GFR (CKD-EPI)AfAm Est GFR (CKD-EPI)NonAf Glucose Plasma Lactic Acid Al Calcium Phosphorus Magnesium Total Bilirubin AST ALT Alkaline Phosphatase Ammonia Total Creatine Kinase CK-MB (CK-2) CK-MB (CK-2) Rel Index Troponin I 0.082 H* Total Protein Albumin Lipase Urine Color Yellow Urine Appearance Cloudy H Urine pH 7.0 Ur Specific [place] 1.004 Urine Protein Trace H Urine Glucose (UA) Negative Urine Ketones Negative Urine Blood Negative Urine Nitrite Negative Urine Bilirubin Negative Urine Urobilinogen <2.0 Ur Leukocyte Esterase Large H Urine RBC 1 Urine WBC 7 H Ur Squamous Epith Cells 9 H Urine Bacteria Few H Urine Yeast (Budding) Occasional H Salicylates Urine Opiates Screen Ur Oxycodone Screen Urine Methadone Screen Ur Propoxyphene Screen Acetaminophen Ur Barbiturates Screen U Tricyclic Antidepress Ur Phencyclidine Scrn Ur Amphetamines Screen U Methamphetamines Scrn U Benzodiazepines Scrn Urine Cocaine Screen U Marijuana (THC) Screen Serum Alcohol Hepatitis A IgM Ab Hep Bs Antigen Hep B Core IgM Ab Hep C IgG Ab 04/28/18 07:14 WBC RBC Hgb Hct MCV MCH MCHC RDW Plt Count Neutrophils % Lymphocytes % Monocytes % Eosinophils % Basophils % Neutrophils # Lymphocytes # Monocytes # Eosinophils # Basophils # Anisocytosis Macrocytosis PT INR APTT Sodium 138 Potassium 2.0 L* Chloride 108 H Carbon Dioxide 23 Anion Gap 7 BUN 12 Creatinine 0.69 Est GFR (CKD-EPI)AfAm >90 Est GFR (CKD-EPI)NonAf >90 Glucose 104 H Plasma Lactic Acid Al Calcium 8.0 L Phosphorus Magnesium Total Bilirubin 0.7 AST 21 ALT 30 Alkaline Phosphatase 144 H Ammonia Total Creatine Kinase CK-MB (CK-2) CK-MB (CK-2) Rel Index Troponin I Total Protein 4.7 L Albumin 2.3 L Lipase Urine Color Urine Appearance Urine pH Ur Specific [place] Urine Protein Urine Glucose (UA) Urine Ketones Urine Blood Urine Nitrite Urine Bilirubin Urine Urobilinogen Ur Leukocyte Esterase Urine RBC Urine WBC Ur Squamous Epith Cells Urine Bacteria Urine Yeast (Budding) Salicylates Urine Opiates Screen Ur Oxycodone Screen Urine Methadone Screen Ur Propoxyphene Screen Acetaminophen Ur Barbiturates Screen U Tricyclic Antidepress Ur Phencyclidine Scrn Ur Amphetamines Screen U Methamphetamines Scrn U Benzodiazepines Scrn Urine Cocaine Screen U Marijuana (THC) Screen Serum Alcohol Hepatitis A IgM Ab Hep Bs Antigen Hep B Core IgM Ab Hep C IgG Ab Vital Signs 04/27/18 04/27/18 04/27/18 18:38 20:58 21:35 Temperature 98.2 F 97.5 F L 97.7 F Pulse Rate 69 100 Pulse Rate [ 101 H Supine Pulse Oximetery] Respiratory 18 16 20 Rate Blood Pressure 126/84 140/60 Blood Pressure 147/95 [Right Arm Supine] O2 Sat by Pulse 96 97 Oximetry 04/28/18 06:38 Temperature 98.3 F Pulse Rate Pulse Rate [ 98 Supine Pulse Oximetery] Respiratory 20 Rate Blood Pressure Blood Pressure 133/93 [Right Arm Supine] O2 Sat by Pulse 99 Oximetry Confusion likely related to encephalopathy from chronic alcohol abuse and also hepatic encephalopathy we will continue patient on lactulose UTI we'll continue patient on Rocephin Currently no evidence of withdrawals but will start the patient on CIWA scale and when necessary Ativan Generalized weakness Hypokalemia we'll replace currently still low will continue to monitor Explained to the family that prognosis is poor if the patient continues to abuse alcohol Objective - Vital Signs Vital signs: Vital Signs Temp 98.3 F 04/28/18 06:38 Pulse 98 04/28/18 06:38 Resp 20 04/28/18 06:38 BP 133/93 04/28/18 06:38 Pulse Ox 99 04/28/18 06:38 Intake & Output 04/27/18 04/28/18 04/28/18 18:59 06:59 18:59 Intake Total 200 Balance 200 Weight 49.895 kg 53.07 kg 53.07 kg Intake: Oral 200 Other: Voiding Method Bedpan Bedpan Diaper # Voids 4 2 - Labs CBC & Chem 7: 04/28/18 07:14 04/28/18 07:14 Labs: Abnormal Lab Results - Last 24 Hours (Table) 04/27/18 04/27/18 04/27/18 Range/Units 19:00 19:00 19:00 WBC 15.0 H (3.8-10.6) k/uL RBC (3.80-5.40) m/uL MCV 100.8 H (80.0-100.0) fL RDW 18.8 H (11.5-15.5) % Neutrophils # 12.5 H (1.3-7.7) k/uL Sodium 132 L (137-145) mmol/L Potassium 2.5 L* (3.5-5.1) mmol/L Chloride (98-107) mmol/L Carbon Dioxide 21 L (22-30) mmol/L Glucose 126 H (74-99) mg/dL Calcium (8.4-10.2) mg/dL Alkaline Phosphatase 170 H (38-126) U/L CK-MB (CK-2) 6.7 H* (0.0-2.4) ng/mL Troponin I 0.095 H* (0.000-0.034) ng/mL Total Protein 6.0 L (6.3-8.2) g/dL Albumin 3.1 L (3.5-5.0) g/dL Urine Appearance (Clear) Urine Protein (Negative) Ur Leukocyte Esterase (Negative) Urine WBC (0-5) /hpf Ur Squamous Epith Cells (0-4) /hpf Urine Bacteria (None) /hpf Urine Yeast (Budding) (None) /hpf 04/28/18 04/28/18 04/28/18 Range/Units 00:42 01:00 07:14 WBC (3.8-10.6) k/uL RBC (3.80-5.40) m/uL MCV (80.0-100.0) fL RDW (11.5-15.5) % Neutrophils # (1.3-7.7) k/uL Sodium (137-145) mmol/L Potassium (3.5-5.1) mmol/L Chloride (98-107) mmol/L Carbon Dioxide (22-30) mmol/L Glucose (74-99) mg/dL Calcium (8.4-10.2) mg/dL Alkaline Phosphatase (38-126) U/L CK-MB (CK-2) (0.0-2.4) ng/mL Troponin I 0.106 H* 0.082 H* (0.000-0.034) ng/mL Total Protein (6.3-8.2) g/dL Albumin (3.5-5.0) g/dL Urine Appearance Cloudy H (Clear) Urine Protein Trace H (Negative) Ur Leukocyte Esterase Large H (Negative) Urine WBC 7 H (0-5) /hpf Ur Squamous Epith Cells 9 H (0-4) /hpf Urine Bacteria Few H (None) /hpf Urine Yeast (Budding) Occasional H (None) /hpf 04/28/18 04/28/18 Range/Units 07:14 07:14 WBC (3.8-10.6) k/uL RBC 3.48 L (3.80-5.40) m/uL MCV 102.2 H (80.0-100.0) fL RDW 18.4 H (11.5-15.5) % Neutrophils # (1.3-7.7) k/uL Sodium (137-145) mmol/L Potassium 2.0 L* (3.5-5.1) mmol/L Chloride 108 H (98-107) mmol/L Carbon Dioxide (22-30) mmol/L Glucose 104 H (74-99) mg/dL Calcium 8.0 L (8.4-10.2) mg/dL Alkaline Phosphatase 144 H (38-126) U/L CK-MB (CK-2) (0.0-2.4) ng/mL Troponin I (0.000-0.034) ng/mL Total Protein 4.7 L (6.3-8.2) g/dL Albumin 2.3 L (3.5-5.0) g/dL Urine Appearance (Clear) Urine Protein (Negative) Ur Leukocyte Esterase (Negative) Urine WBC (0-5) /hpf Ur Squamous Epith Cells (0-4) /hpf Urine Bacteria (None) /hpf Urine Yeast (Budding) (None) /hpf
--- NOTE | 2018-04-28 13:10 | ECHOF ---
Referral Reason:abnormal cardiac enzymes MEASUREMENTS -------- HEIGHT: 165.1 cm WEIGHT: 53.1 kg BP: IVSd: 1.4 cm (0.6 - 1.1) LVIDd: 2.3 cm (3.9 - 5.3) LVPWd: 1.5 cm (0.6 - 1.1) IVSs: 1.5 cm LVIDs: 2.3 cm LVPWs: 1.3 cm LAESV Index (A-L): 16.78 ml/m Ao Diam: 3.3 cm (2.0 - 3.7) LA Diam: 2.9 cm (2.7 - 3.8) AV Cusp: 1.9 cm (1.5 - 2.6) EPSS: 0.3 cm MV E Kike: 0.37 m/s MV DecT: 246 ms MV A Kike: 0.74 m/s MV E/A Ratio: 0.49 MV EF SLOPE: 102.44 mm/s (70 - 150) MV EXCURSION: 16.66 mm (> 18.000) FINDINGS -------- Undetermined rhythm. This was a technically adequate study. The left ventricular size is normal. There is mild concentric left ventricular hypertrophy. Overa ll left ventricular systolic function is low-normal with, an EF between 50 - 55 %. The right ventricle is normal in size. The left atrial size is normal. The right atrial size is normal. There is mild aortic valve sclerosis. There is no evidence of aortic regurgitation. Mild mitral annular calcification present. Mild mitral regurgitation is present. Mild tricuspid regurgitation present. There is no evidence of pulmonary hypertension. The right v entricular systolic pressure, as measured by Doppler, is {RVSP}. The pulmonic valve was not well visualized. The aortic root size is normal. There is no pericardial effusion. CONCLUSIONS -------- 1. The left ventricular size is normal. 2. There is mild concentric left ventricular hypertrophy. 3. Overall left ventricular systolic function is low-normal with, an EF between 50 - 55 %. 4. The right ventricle is normal in size. 5. The left atrial size is normal. 6. The right atrial size is normal. 7. There is mild aortic valve sclerosis. 8. Mild mitral annular calcification present. 9. Mild mitral regurgitation is present. 10. Mild tricuspid regurgitation present. 11. There is no evidence of pulmonary hypertension. 12. The right ventricular systolic pressure, as measured by Doppler, is {RVSP}. 13. The pulmonic valve was not well visualized. 14. The aortic root size is normal. 15. There is no pericardial effusion. FARM MANAGEMENT AGENT: Rosa Friedman RDCS
--- NOTE | 2018-04-28 14:02 | CONS ---
CONSULTATION Keren Sommer is a 57-year-old female who has a history of alcohol abuse and became increasingly confused. Cardiology was consulted on account of abnormal troponins. The patient cannot give a history. She is obtunded. She is resting comfortably in bed. There is no respiratory distress. REVIEW OF SYSTEMS: Not available. PAST HISTORY: MRSA, Raynaud's disease, neuropathy and alcohol abuse. PAST SURGICAL HISTORY: Appendectomy, Caesarean section, joint replacement and right leg amputation. FAMILY HISTORY: Family history noncontributory. EXAMINATION: VITAL SIGNS: Blood pressure is 133/90 mmHg, pulse rate in the mid 90s to 100 beats per minute. Afebrile 98.3 degrees Fahrenheit. HEENT: Head and neck examination is normal. HEART: Sounds S1, S2 soft. RESPIRATORY: Breath sounds are reduced bilaterally. Poor air entry on account of reduced inspiratory effort. ABDOMEN: Soft. EXTREMITIES: There is no peripheral edema. She is a lower extremity amputee. IMPRESSION: Abnormal troponins. Her 12-lead ECG showed nonspecific ST-T abnormalities. SUGGEST: 2D echo and Doppler study to assess for function and management of alcohol abuse and her encephalopathy for now. MMODL / IJN: [id number] /
[2018-04-28] MEDS: cefTRIAXone IN SWFI 1,000 MG/10 ML SYRINGE IVP SCH (21:41)
[2018-04-29 08:39] LABS: Anisocytosis Slight; Basophils # (A) 0.1 k/uL (0-0.2); Basophils % (A) 1 %; Eosinophils # (A) 0.2 k/uL (0-0.7); Eosinophils % (A) 2 %; HCT 34.3 % (34.0-46.0); HGB 11.2 gm/dL (11.4-16.0); Lymphocytes # (A) 2.4 k/uL (1.0-4.8); Lymphocytes % (A) 29 %; MCH 33.9 pg (25.0-35.0); MCHC 32.6 g/dL (31.0-37.0); MCV 103.9 fL (80.0-100.0); Macrocytosis Moderate; Mean Platelet Volume 7.9; Monocytes # (A) 0.3 k/uL (0-1.0); Monocytes % (A) 4 %; Neutrophils # (A) 5.1 k/uL (1.3-7.7); Neutrophils % (A) 63 %; Platelet Count 233 k/uL (150-450); RDW 18.9 % (11.5-15.5); WBC 8.2 k/uL (3.8-10.6)
[2018-04-29 08:47] LABS: ALT 31 U/L (9-52); AST 18 U/L (14-36); Albumin 2.1 g/dL (3.5-5.0); Alkaline Phosphatase 133 U/L (38-126); Anion Gap 4 mmol/L; Blood Urea Nitrogen 9 mg/dL (7-17); Calcium 8.2 mg/dL (8.4-10.2); Carbon Dioxide 22 mmol/L (22-30); Chloride 114 mmol/L (98-107); Glucose 120 mg/dL (74-99); Sodium 140 mmol/L (137-145); Total Bilirubin 0.3 mg/dL (0.2-1.3); Total Protein 4.4 g/dL (6.3-8.2)
[2018-04-29 08:50] LABS: Potassium 2.4 mmol/L (3.5-5.1)
[2018-04-29] MEDS: LACTULOSE 20 GM/30 ML CUP PO SCH ×2 (10:30→21:37)
[2018-04-29] MEDS: POTASSIUM CHLORIDE ER 20 MEQ TAB.ER PO SCH ×5 (10:30→23:24)
[2018-04-29] MEDS: THIAMINE 100 MG TAB PO SCH ×2 (10:30→18:14)
[2018-04-29] MEDS: MULTIVITAMINS, THERA 1 EACH TAB PO SCH (10:30)
[2018-04-29] MEDS: ENOXAPARIN 40 MG/0.4 ML SYRINGE SQ SCH (10:30)
[2018-04-29] MEDS: DEXTROSE 5%-0.45% NACL 1,000 ML IV SCH ×2 (10:31→21:37)
--- NOTE | 2018-04-29 14:25 | P.PN ---
Subjective Progress Note Date: 04/29/18 Principal diagnosis: Appears to be less confused today More awake Vital Signs 04/27/18 04/27/18 04/27/18 18:38 20:58 21:35 Temperature 98.2 F 97.5 F L 97.7 F Pulse Rate 69 100 Pulse Rate [ 101 H Supine Pulse Oximetery] Respiratory 18 16 20 Rate Blood Pressure 126/84 140/60 Blood Pressure 147/95 [Right Arm Supine] O2 Sat by Pulse 96 97 Oximetry 04/28/18 04/28/18 04/28/18 06:38 14:36 23:00 Temperature 98.3 F 97.5 F L 98.3 F Pulse Rate Pulse Rate [ 98 109 H 104 H Supine Pulse Oximetery] Respiratory 20 16 20 Rate Blood Pressure Blood Pressure 133/93 122/70 129/88 [Right Arm Supine] O2 Sat by Pulse 99 100 100 Oximetry 04/29/18 06:23 Temperature 98.1 F Pulse Rate Pulse Rate [ 96 Supine Pulse Oximetery] Respiratory 18 Rate Blood Pressure Blood Pressure 118/79 [Right Arm Supine] O2 Sat by Pulse 99 Oximetry Lab Results 04/27/18 04/27/18 04/27/18 Range/Units 19:00 19:00 19:00 WBC 15.0 H (3.8-10.6) k/uL RBC 4.13 (3.80-5.40) m/uL Hgb 13.8 (11.4-16.0) gm/dL Hct 41.7 (34.0-46.0) % MCV 100.8 H (80.0-100.0) fL MCH 33.4 (25.0-35.0) pg MCHC 33.2 (31.0-37.0) g/dL RDW 18.8 H (11.5-15.5) % Plt Count 227 (150-450) k/uL Neutrophils % 83 % Lymphocytes % 12 % Monocytes % 2 % Eosinophils % 2 % Basophils % 0 % Neutrophils # 12.5 H (1.3-7.7) k/uL Lymphocytes # 1.8 (1.0-4.8) k/uL Monocytes # 0.4 (0-1.0) k/uL Eosinophils # 0.3 (0-0.7) k/uL Basophils # 0.0 (0-0.2) k/uL Anisocytosis Slight Macrocytosis Moderate PT (9.0-12.0) sec INR (<1.2) APTT (22.0-30.0) sec Sodium 132 L (137-145) mmol/L Potassium 2.5 L* (3.5-5.1) mmol/L Chloride 100 (98-107) mmol/L Carbon Dioxide 21 L (22-30) mmol/L Anion Gap 11 mmol/L BUN 15 (7-17) mg/dL Creatinine 0.70 (0.52-1.04) mg/dL Est GFR (CKD-EPI)AfAm >90 (>60 ml/min/1.73 sqM) Est GFR (CKD-EPI)NonAf >90 (>60 ml/min/1.73 sqM) Glucose 126 H (74-99) mg/dL Plasma Lactic Acid Al (0.7-2.0) mmol/L Calcium 8.7 (8.4-10.2) mg/dL Phosphorus 2.8 (2.5-4.5) mg/dL Magnesium 2.0 (1.6-2.3) mg/dL Total Bilirubin 1.2 (0.2-1.3) mg/dL AST 30 (14-36) U/L ALT 28 (9-52) U/L Alkaline Phosphatase 170 H (38-126) U/L Ammonia (<30) umol/L Total Creatine Kinase 79 (30-135) U/L CK-MB (CK-2) 6.7 H* (0.0-2.4) ng/mL CK-MB (CK-2) Rel Index 8.5 Troponin I 0.095 H* (0.000-0.034) ng/mL Total Protein 6.0 L (6.3-8.2) g/dL Albumin 3.1 L (3.5-5.0) g/dL Lipase 57 (23-300) U/L Urine Color Urine Appearance (Clear) Urine pH (5.0-8.0) Ur Specific [place] (1.001-1.035) Urine Protein (Negative) Urine Glucose (UA) (Negative) Urine Ketones (Negative) Urine Blood (Negative) Urine Nitrite (Negative) Urine Bilirubin (Negative) Urine Urobilinogen (<2.0) mg/dL Ur Leukocyte Esterase (Negative) Urine RBC (0-5) /hpf Urine WBC (0-5) /hpf Ur Squamous Epith Cells (0-4) /hpf Urine Bacteria (None) /hpf Urine Yeast (Budding) (None) /hpf Salicylates <1.0 mg/dL Urine Opiates Screen (NotDetected) Ur Oxycodone Screen (NotDetected) Urine Methadone Screen (NotDetected) Ur Propoxyphene Screen (NotDetected) Acetaminophen <10.0 ug/mL Ur Barbiturates Screen (NotDetected) U Tricyclic Antidepress (NotDetected) Ur Phencyclidine Scrn (NotDetected) Ur Amphetamines Screen (NotDetected) U Methamphetamines Scrn (NotDetected) U Benzodiazepines Scrn (NotDetected) Urine Cocaine Screen (NotDetected) U Marijuana (THC) Screen (NotDetected) Serum Alcohol <10 mg/dL Hepatitis A IgM Ab Hep Bs Antigen (Non-Reactive) Hep B Core IgM Ab (Non-Reactive) Hep C IgG Ab (Non-Reactive) 04/27/18 04/27/18 04/27/18 Range/Units 19:00 19:00 19:00 WBC (3.8-10.6) k/uL RBC (3.80-5.40) m/uL Hgb (11.4-16.0) gm/dL Hct (34.0-46.0) % MCV (80.0-100.0) fL MCH (25.0-35.0) pg MCHC (31.0-37.0) g/dL RDW (11.5-15.5) % Plt Count (150-450) k/uL Neutrophils % % Lymphocytes % % Monocytes % % Eosinophils % % Basophils % % Neutrophils # (1.3-7.7) k/uL Lymphocytes # (1.0-4.8) k/uL Monocytes # (0-1.0) k/uL Eosinophils # (0-0.7) k/uL Basophils # (0-0.2) k/uL Anisocytosis Macrocytosis PT 9.6 (9.0-12.0) sec INR 1.0 (<1.2) APTT 23.3 (22.0-30.0) sec Sodium (137-145) mmol/L Potassium (3.5-5.1) mmol/L Chloride (98-107) mmol/L Carbon Dioxide (22-30) mmol/L Anion Gap mmol/L BUN (7-17) mg/dL Creatinine (0.52-1.04) mg/dL Est GFR (CKD-EPI)AfAm (>60 ml/min/1.73 sqM) Est GFR (CKD-EPI)NonAf (>60 ml/min/1.73 sqM) Glucose (74-99) mg/dL Plasma Lactic Acid Al 1.8 (0.7-2.0) mmol/L Calcium (8.4-10.2) mg/dL Phosphorus (2.5-4.5) mg/dL Magnesium (1.6-2.3) mg/dL Total Bilirubin (0.2-1.3) mg/dL AST (14-36) U/L ALT (9-52) U/L Alkaline Phosphatase (38-126) U/L Ammonia 27 (<30) umol/L Total Creatine Kinase (30-135) U/L CK-MB (CK-2) (0.0-2.4) ng/mL CK-MB (CK-2) Rel Index Troponin I (0.000-0.034) ng/mL Total Protein (6.3-8.2) g/dL Albumin (3.5-5.0) g/dL Lipase (23-300) U/L Urine Color Urine Appearance (Clear) Urine pH (5.0-8.0) Ur Specific [place] (1.001-1.035) Urine Protein (Negative) Urine Glucose (UA) (Negative) Urine Ketones (Negative) Urine Blood (Negative) Urine Nitrite (Negative) Urine Bilirubin (Negative) Urine Urobilinogen (<2.0) mg/dL Ur Leukocyte Esterase (Negative) Urine RBC (0-5) /hpf Urine WBC (0-5) /hpf Ur Squamous Epith Cells (0-4) /hpf Urine Bacteria (None) /hpf Urine Yeast (Budding) (None) /hpf Salicylates mg/dL Urine Opiates Screen (NotDetected) Ur Oxycodone Screen (NotDetected) Urine Methadone Screen (NotDetected) Ur Propoxyphene Screen (NotDetected) Acetaminophen ug/mL Ur Barbiturates Screen (NotDetected) U Tricyclic Antidepress (NotDetected) Ur Phencyclidine Scrn (NotDetected) Ur Amphetamines Screen (NotDetected) U Methamphetamines Scrn (NotDetected) U Benzodiazepines Scrn (NotDetected) Urine Cocaine Screen (NotDetected) U Marijuana (THC) Screen (NotDetected) Serum Alcohol mg/dL Hepatitis A IgM Ab Hep Bs Antigen Non-Reactive (Non-Reactive) Hep B Core IgM Ab Non-Reactive (Non-Reactive) Hep C IgG Ab Non-Reactive (Non-Reactive) 04/27/18 04/28/18 04/28/18 Range/Units 19:06 00:42 01:00 WBC (3.8-10.6) k/uL RBC (3.80-5.40) m/uL Hgb (11.4-16.0) gm/dL Hct (34.0-46.0) % MCV (80.0-100.0) fL MCH (25.0-35.0) pg MCHC (31.0-37.0) g/dL RDW (11.5-15.5) % Plt Count (150-450) k/uL Neutrophils % % Lymphocytes % % Monocytes % % Eosinophils % % Basophils % % Neutrophils # (1.3-7.7) k/uL Lymphocytes # (1.0-4.8) k/uL Monocytes # (0-1.0) k/uL Eosinophils # (0-0.7) k/uL Basophils # (0-0.2) k/uL Anisocytosis Macrocytosis PT (9.0-12.0) sec INR (<1.2) APTT (22.0-30.0) sec Sodium (137-145) mmol/L Potassium (3.5-5.1) mmol/L Chloride (98-107) mmol/L Carbon Dioxide (22-30) mmol/L Anion Gap mmol/L BUN (7-17) mg/dL Creatinine (0.52-1.04) mg/dL Est GFR (CKD-EPI)AfAm (>60 ml/min/1.73 sqM) Est GFR (CKD-EPI)NonAf (>60 ml/min/1.73 sqM) Glucose (74-99) mg/dL Plasma Lactic Acid Al (0.7-2.0) mmol/L Calcium (8.4-10.2) mg/dL Phosphorus (2.5-4.5) mg/dL Magnesium (1.6-2.3) mg/dL Total Bilirubin (0.2-1.3) mg/dL AST (14-36) U/L ALT (9-52) U/L Alkaline Phosphatase (38-126) U/L Ammonia (<30) umol/L Total Creatine Kinase (30-135) U/L CK-MB (CK-2) (0.0-2.4) ng/mL CK-MB (CK-2) Rel Index Troponin I 0.106 H* (0.000-0.034) ng/mL Total Protein (6.3-8.2) g/dL Albumin (3.5-5.0) g/dL Lipase (23-300) U/L Urine Color Urine Appearance (Clear) Urine pH (5.0-8.0) Ur Specific [place] (1.001-1.035) Urine Protein (Negative) Urine Glucose (UA) (Negative) Urine Ketones (Negative) Urine Blood (Negative) Urine Nitrite (Negative) Urine Bilirubin (Negative) Urine Urobilinogen (<2.0) mg/dL Ur Leukocyte Esterase (Negative) Urine RBC (0-5) /hpf Urine WBC (0-5) /hpf Ur Squamous Epith Cells (0-4) /hpf Urine Bacteria (None) /hpf Urine Yeast (Budding) (None) /hpf Salicylates mg/dL Urine Opiates Screen Not Detected (NotDetected) Ur Oxycodone Screen Not Detected (NotDetected) Urine Methadone Screen Not Detected (NotDetected) Ur Propoxyphene Screen Not Detected (NotDetected) Acetaminophen ug/mL Ur Barbiturates Screen Not Detected (NotDetected) U Tricyclic Antidepress Not Detected (NotDetected) Ur Phencyclidine Scrn Not Detected (NotDetected) Ur Amphetamines Screen Not Detected (NotDetected) U Methamphetamines Scrn Not Detected (NotDetected) U Benzodiazepines Scrn Not Detected (NotDetected) Urine Cocaine Screen Not Detected (NotDetected) U Marijuana (THC) Screen Not Detected (NotDetected) Serum Alcohol mg/dL Hepatitis A IgM Ab NEGATIVE Hep Bs Antigen (Non-Reactive) Hep B Core IgM Ab (Non-Reactive) Hep C IgG Ab (Non-Reactive) 04/28/18 04/28/18 04/28/18 Range/Units 01:00 07:14 07:14 WBC 9.9 (3.8-10.6) k/uL RBC 3.48 L (3.80-5.40) m/uL Hgb 11.7 (11.4-16.0) gm/dL Hct 35.6 (34.0-46.0) % MCV 102.2 H (80.0-100.0) fL MCH 33.5 (25.0-35.0) pg MCHC 32.8 (31.0-37.0) g/dL RDW 18.4 H (11.5-15.5) % Plt Count 187 (150-450) k/uL Neutrophils % 69 % Lymphocytes % 24 % Monocytes % 4 % Eosinophils % 2 % Basophils % 0 % Neutrophils # 6.8 (1.3-7.7) k/uL Lymphocytes # 2.4 (1.0-4.8) k/uL Monocytes # 0.4 (0-1.0) k/uL Eosinophils # 0.2 (0-0.7) k/uL Basophils # 0.0 (0-0.2) k/uL Anisocytosis Slight Macrocytosis Moderate PT (9.0-12.0) sec INR (<1.2) APTT (22.0-30.0) sec Sodium (137-145) mmol/L Potassium (3.5-5.1) mmol/L Chloride (98-107) mmol/L Carbon Dioxide (22-30) mmol/L Anion Gap mmol/L BUN (7-17) mg/dL Creatinine (0.52-1.04) mg/dL Est GFR (CKD-EPI)AfAm (>60 ml/min/1.73 sqM) Est GFR (CKD-EPI)NonAf (>60 ml/min/1.73 sqM) Glucose (74-99) mg/dL Plasma Lactic Acid Al (0.7-2.0) mmol/L Calcium (8.4-10.2) mg/dL Phosphorus (2.5-4.5) mg/dL Magnesium (1.6-2.3) mg/dL Total Bilirubin (0.2-1.3) mg/dL AST (14-36) U/L ALT (9-52) U/L Alkaline Phosphatase (38-126) U/L Ammonia (<30) umol/L Total Creatine Kinase (30-135) U/L CK-MB (CK-2) (0.0-2.4) ng/mL CK-MB (CK-2) Rel Index Troponin I 0.082 H* (0.000-0.034) ng/mL Total Protein (6.3-8.2) g/dL Albumin (3.5-5.0) g/dL Lipase (23-300) U/L Urine Color Yellow Urine Appearance Cloudy H (Clear) Urine pH 7.0 (5.0-8.0) Ur Specific [place] 1.004 (1.001-1.035) Urine Protein Trace H (Negative) Urine Glucose (UA) Negative (Negative) Urine Ketones Negative (Negative) Urine Blood Negative (Negative) Urine Nitrite Negative (Negative) Urine Bilirubin Negative (Negative) Urine Urobilinogen <2.0 (<2.0) mg/dL Ur Leukocyte Esterase Large H (Negative) Urine RBC 1 (0-5) /hpf Urine WBC 7 H (0-5) /hpf Ur Squamous Epith Cells 9 H (0-4) /hpf Urine Bacteria Few H (None) /hpf Urine Yeast (Budding) Occasional H (None) /hpf Salicylates mg/dL Urine Opiates Screen (NotDetected) Ur Oxycodone Screen (NotDetected) Urine Methadone Screen (NotDetected) Ur Propoxyphene Screen (NotDetected) Acetaminophen ug/mL Ur Barbiturates Screen (NotDetected) U Tricyclic Antidepress (NotDetected) Ur Phencyclidine Scrn (NotDetected) Ur Amphetamines Screen (NotDetected) U Methamphetamines Scrn (NotDetected) U Benzodiazepines Scrn (NotDetected) Urine Cocaine Screen (NotDetected) U Marijuana (THC) Screen (NotDetected) Serum Alcohol mg/dL Hepatitis A IgM Ab Hep Bs Antigen (Non-Reactive) Hep B Core IgM Ab (Non-Reactive) Hep C IgG Ab (Non-Reactive) 04/28/18 04/28/1818 Range/Units 07:14 12:08 08:22 WBC 8.2 (3.8-10.6) k/uL RBC 3.30 L (3.80-5.40) m/uL Hgb 11.2 L (11.4-16.0) gm/dL Hct 34.3 (34.0-46.0) % MCV 103.9 H (80.0-100.0) fL MCH 33.9 (25.0-35.0) pg MCHC 32.6 (31.0-37.0) g/dL RDW 18.9 H (11.5-15.5) % Plt Count 233 (150-450) k/uL Neutrophils % 63 % Lymphocytes % 29 % Monocytes % 4 % Eosinophils % 2 % Basophils % 1 % Neutrophils # 5.1 (1.3-7.7) k/uL Lymphocytes # 2.4 (1.0-4.8) k/uL Monocytes # 0.3 (0-1.0) k/uL Eosinophils # 0.2 (0-0.7) k/uL Basophils # 0.1 (0-0.2) k/uL Anisocytosis Slight Macrocytosis Moderate PT (9.0-12.0) sec INR (<1.2) APTT (22.0-30.0) sec Sodium 138 (137-145) mmol/L Potassium 2.0 L* (3.5-5.1) mmol/L Chloride 108 H (98-107) mmol/L Carbon Dioxide 23 (22-30) mmol/L Anion Gap 7 mmol/L BUN 12 (7-17) mg/dL Creatinine 0.69 (0.52-1.04) mg/dL Est GFR (CKD-EPI)AfAm >90 (>60 ml/min/1.73 sqM) Est GFR (CKD-EPI)NonAf >90 (>60 ml/min/1.73 sqM) Glucose 104 H (74-99) mg/dL Plasma Lactic Acid Al (0.7-2.0) mmol/L Calcium 8.0 L (8.4-10.2) mg/dL Phosphorus (2.5-4.5) mg/dL Magnesium (1.6-2.3) mg/dL Total Bilirubin 0.7 (0.2-1.3) mg/dL AST 21 (14-36) U/L ALT 30 (9-52) U/L Alkaline Phosphatase 144 H (38-126) U/L Ammonia 45 H (<30) umol/L Total Creatine Kinase (30-135) U/L CK-MB (CK-2) (0.0-2.4) ng/mL CK-MB (CK-2) Rel Index Troponin I (0.000-0.034) ng/mL Total Protein 4.7 L (6.3-8.2) g/dL Albumin 2.3 L (3.5-5.0) g/dL Lipase (23-300) U/L Urine Color Urine Appearance (Clear) Urine pH (5.0-8.0) Ur Specific [place] (1.001-1.035) Urine Protein (Negative) Urine Glucose (UA) (Negative) Urine Ketones (Negative) Urine Blood (Negative) Urine Nitrite (Negative) Urine Bilirubin (Negative) Urine Urobilinogen (<2.0) mg/dL Ur Leukocyte Esterase (Negative) Urine RBC (0-5) /hpf Urine WBC (0-5) /hpf Ur Squamous Epith Cells (0-4) /hpf Urine Bacteria (None) /hpf Urine Yeast (Budding) (None) /hpf Salicylates mg/dL Urine Opiates Screen (NotDetected) Ur Oxycodone Screen (NotDetected) Urine Methadone Screen (NotDetected) Ur Propoxyphene Screen (NotDetected) Acetaminophen ug/mL Ur Barbiturates Screen (NotDetected) U Tricyclic Antidepress (NotDetected) Ur Phencyclidine Scrn (NotDetected) Ur Amphetamines Screen (NotDetected) U Methamphetamines Scrn (NotDetected) U Benzodiazepines Scrn (NotDetected) Urine Cocaine Screen (NotDetected) U Marijuana (THC) Screen (NotDetected) Serum Alcohol mg/dL Hepatitis A IgM Ab Hep Bs Antigen (Non-Reactive) Hep B Core IgM Ab (Non-Reactive) Hep C IgG Ab (Non-Reactive) 04/29/18 Range/Units 08:22 WBC (3.8-10.6) k/uL RBC (3.80-5.40) m/uL Hgb (11.4-16.0) gm/dL Hct (34.0-46.0) % MCV (80.0-100.0) fL MCH (25.0-35.0) pg MCHC (31.0-37.0) g/dL RDW (11.5-15.5) % Plt Count (150-450) k/uL Neutrophils % % Lymphocytes % % Monocytes % % Eosinophils % % Basophils % % Neutrophils # (1.3-7.7) k/uL Lymphocytes # (1.0-4.8) k/uL Monocytes # (0-1.0) k/uL Eosinophils # (0-0.7) k/uL Basophils # (0-0.2) k/uL Anisocytosis Macrocytosis PT (9.0-12.0) sec INR (<1.2) APTT (22.0-30.0) sec Sodium 140 (137-145) mmol/L Potassium 2.4 L* (3.5-5.1) mmol/L Chloride 114 H (98-107) mmol/L Carbon Dioxide 22 (22-30) mmol/L Anion Gap 4 mmol/L BUN 9 (7-17) mg/dL Creatinine 0.60 (0.52-1.04) mg/dL Est GFR (CKD-EPI)AfAm >90 (>60 ml/min/1.73 sqM) Est GFR (CKD-EPI)NonAf >90 (>60 ml/min/1.73 sqM) Glucose 120 H (74-99) mg/dL Plasma Lactic Acid Al (0.7-2.0) mmol/L Calcium 8.2 L (8.4-10.2) mg/dL Phosphorus (2.5-4.5) mg/dL Magnesium (1.6-2.3) mg/dL Total Bilirubin 0.3 (0.2-1.3) mg/dL AST 18 (14-36) U/L ALT 31 (9-52) U/L Alkaline Phosphatase 133 H (38-126) U/L Ammonia (<30) umol/L Total Creatine Kinase (30-135) U/L CK-MB (CK-2) (0.0-2.4) ng/mL CK-MB (CK-2) Rel Index Troponin I (0.000-0.034) ng/mL Total Protein 4.4 L (6.3-8.2) g/dL Albumin 2.1 L (3.5-5.0) g/dL Lipase (23-300) U/L Urine Color Urine Appearance (Clear) Urine pH (5.0-8.0) Ur Specific [place] (1.001-1.035) Urine Protein (Negative) Urine Glucose (UA) (Negative) Urine Ketones (Negative) Urine Blood (Negative) Urine Nitrite (Negative) Urine Bilirubin (Negative) Urine Urobilinogen (<2.0) mg/dL Ur Leukocyte Esterase (Negative) Urine RBC (0-5) /hpf Urine WBC (0-5) /hpf Ur Squamous Epith Cells (0-4) /hpf Urine Bacteria (None) /hpf Urine Yeast (Budding) (None) /hpf Salicylates mg/dL Urine Opiates Screen (NotDetected) Ur Oxycodone Screen (NotDetected) Urine Methadone Screen (NotDetected) Ur Propoxyphene Screen (NotDetected) Acetaminophen ug/mL Ur Barbiturates Screen (NotDetected) U Tricyclic Antidepress (NotDetected) Ur Phencyclidine Scrn (NotDetected) Ur Amphetamines Screen (NotDetected) U Methamphetamines Scrn (NotDetected) U Benzodiazepines Scrn (NotDetected) Urine Cocaine Screen (NotDetected) U Marijuana (THC) Screen (NotDetected) Serum Alcohol mg/dL Hepatitis A IgM Ab Hep Bs Antigen (Non-Reactive) Hep B Core IgM Ab (Non-Reactive) Hep C IgG Ab (Non-Reactive) Constitutional: No acute distress, conversant, pleasant Eyes: Anicteric sclerae, moist conjunctiva, no lid-lag PERRLA ENMT: Cranial nerves grossly intact Neck: Supple, FROM, no masses, or JVD No carotid bruits No thyromegaly Lungs: Clear to auscultation Clear to percussion Normal respiratory effort, no accessory muscle use Cardiovascular: Heart regular in rate and rhythm, No murmurs, gallops, or rubs No peripheral edema Abdominal: Soft Nontender, no guarding, rebound or rigidity Abdomen moving with respiration Normoactive bowel sounds No hepatomegaly, No splenomegaly No palpable mass No abdominal wall hernia noted Skin: Normal temperature, tone, texture, turgor No induration No subcutaneous nodules No rash, lesions No ulcers Extremities: No digital cyanosis No clubbing Pedal pulses intact and symmetrical Radial pulses intact and symmetrical Normal gait and station No calf tenderness Psychiatric: Less confused today Neuro: Generalized weakness Confusion likely related to encephalopathy from chronic alcohol abuse and also hepatic encephalopathy we will continue patient on lactulose, overall the condition of the patient slowly improving UTI we'll continue patient on Rocephin, no evidence of sepsis at this time Currently no evidence of withdrawals but will start the patient on CIWA scale and when necessary Ativan Generalized weakness Hypokalemia we'll replace currently still low will continue to monitor Explained to the family that prognosis is poor if the patient continues to abuse alcohol Objective - Vital Signs Vital signs: Vital Signs Temp 98.1 F 04/29/18 06:23 Pulse 96 04/29/18 06:23 Resp 18 04/29/18 06:23 BP 118/79 04/29/18 06:23 Pulse Ox 99 04/29/18 06:23 Intake & Output 04/28/18 04/29/18 04/29/18 18:59 06:59 18:59 Intake Total 640 500 680 Balance 640 500 680 Weight 53.07 kg Intake: Intake, IV Titration 640 Amount Dextrose 5%-0.45% NaCl 1, 640 000 ml @ 80 mls/hr IV . [id number] [facility] Rx#:[id number] Oral 500 680 Other: Voiding Method Bedpan Bedpan Bedpan Diaper Incontinent Incontinent # Voids 2 4 # Bowel Movements 2 - Labs CBC & Chem 7: 04/29/18 08:22 04/29/18 08:22 Labs: Abnormal Lab Results - Last 24 Hours (Table) 04/29/18 04/29/18 Range/Units 08:22 08:22 RBC 3.30 L (3.80-5.40) m/uL Hgb 11.2 L (11.4-16.0) gm/dL MCV 103.9 H (80.0-100.0) fL RDW 18.9 H (11.5-15.5) % Potassium 2.4 L* (3.5-5.1) mmol/L Chloride 114 H (98-107) mmol/L Glucose 120 H (74-99) mg/dL Calcium 8.2 L (8.4-10.2) mg/dL Alkaline Phosphatase 133 H (38-126) U/L Total Protein 4.4 L (6.3-8.2) g/dL Albumin 2.1 L (3.5-5.0) g/dL Microbiology - Last 24 Hours (Table) 04/28/18 01:00 Urine Culture - Final Urine,Voided
[2018-04-29] MEDS ORDERED: Potassium Replacement Protocol 1 EACH MISC MISCELLANE PRN (21:31)
[2018-04-29] MEDS: cefTRIAXone IN SWFI 1,000 MG/10 ML SYRINGE IVP SCH (21:37)
[2018-04-30] MEDS: POTASSIUM CHLORIDE ER 20 MEQ TAB.ER PO SCH (01:12)
[2018-04-30 05:33] LABS: Anisocytosis Slight; Basophils % (A) 0 %; Eosinophils # (A) 0.3 k/uL (0-0.7); Eosinophils % (A) 3 %; HCT 34.1 % (34.0-46.0); HGB 11.1 gm/dL (11.4-16.0); Lymphocytes # (A) 2.5 k/uL (1.0-4.8); Lymphocytes % (A) 27 %; MCH 33.8 pg (25.0-35.0); MCHC 32.5 g/dL (31.0-37.0); MCV 103.9 fL (80.0-100.0); Macrocytosis Moderate; Mean Platelet Volume 8.8; Monocytes # (A) 0.5 k/uL (0-1.0); Monocytes % (A) 5 %; Neutrophils % (A) 63 %; Platelet Count 229 k/uL (150-450); RBC 3.28 m/uL (3.80-5.40); RDW 18.6 % (11.5-15.5); WBC 9.5 k/uL (3.8-10.6)
[2018-04-30 05:45] LABS: ALT 34 U/L (9-52); AST 22 U/L (14-36); Albumin 2.2 g/dL (3.5-5.0); Alkaline Phosphatase 136 U/L (38-126); Anion Gap 6 mmol/L; Blood Urea Nitrogen 5 mg/dL (7-17); Carbon Dioxide 23 mmol/L (22-30); Chloride 114 mmol/L (98-107); Glucose 121 mg/dL (74-99); Potassium 3.6 mmol/L (3.5-5.1); Sodium 143 mmol/L (137-145); Total Bilirubin 0.3 mg/dL (0.2-1.3); Total Protein 4.6 g/dL (6.3-8.2)
[2018-04-30] MEDS: ENOXAPARIN 40 MG/0.4 ML SYRINGE SQ SCH (08:35)
[2018-04-30] MEDS: LACTULOSE 20 GM/30 ML CUP PO SCH ×2 (08:36→21:33)
[2018-04-30] MEDS ORDERED: Potassium Replacement Protocol 1 EACH MISC MISCELLANE PRN (08:37)
[2018-04-30] MEDS ORDERED: POTASSIUM CHLORIDE ER 20 MEQ TAB.ER PO SCH (09:00)
--- NOTE | 2018-04-30 11:24 | P.PN ---
Subjective Progress Note Date: 04/30/18 Principal diagnosis: Patient appears to be much more alert and awake today but still have some confused statements Is not complaining of chest pain or shortness of breath at this time or vomiting Review of systems and systems has been reviewed all negative and positive findings as per HPI Constitutional: No acute distress, conversant, pleasant Eyes: Anicteric sclerae, moist conjunctiva, no lid-lag PERRLA ENMT: Cranial nerves grossly intact Neck: Supple, FROM, no masses, or JVD No carotid bruits No thyromegaly Lungs: Clear to auscultation Clear to percussion Normal respiratory effort, no accessory muscle use Cardiovascular: Heart regular in rate and rhythm, No murmurs, gallops, or rubs No peripheral edema Abdominal: Soft Nontender, no guarding, rebound or rigidity Abdomen moving with respiration Normoactive bowel sounds No hepatomegaly, No splenomegaly No palpable mass No abdominal wall hernia noted Skin: Normal temperature, tone, texture, turgor No induration No subcutaneous nodules No rash, lesions No ulcers Extremities: No digital cyanosis No clubbing Pedal pulses intact and symmetrical Radial pulses intact and symmetrical Normal gait and station No calf tenderness Psychiatric: Less confused today Neuro: Generalized weakness Confusion likely related to encephalopathy Likely due to hepatic encephalopathy hepatic encephalopathy slightly improving patient is responding slowly to lactulose Ammonia is 45 UTI we'll continue patient on Rocephin, no evidence of sepsis at this time Currently no evidence of withdrawals but will start the patient on CIWA scale and when necessary Ativan Generalized weakness Hypokalemia today is better continue to monitor Explained to the family that prognosis is poor if the patient continues to abuse alcohol Discussed with the daughter about discharge planning considering rehab if no significant improvement Objective - Vital Signs Vital signs: Vital Signs Temp 97.9 F 04/30/18 07:00 Pulse 93 04/30/18 07:00 Resp 18 04/30/18 07:00 BP 130/84 04/30/18 07:00 Pulse Ox 100 04/30/18 07:00 Intake & Output 04/29/18 04/30/18 04/30/18 18:59 06:59 18:59 Intake Total 680 Balance 680 Weight 52.617 kg Intake: Oral 680 Other: Voiding Method Bedpan Bedpan Bedpan Incontinent Diaper Diaper Incontinent # Voids 1 1 # Bowel Movements 1 4 - Labs CBC & Chem 7: 04/30/18 05:20 04/30/18 05:20 Labs: Abnormal Lab Results - Last 24 Hours (Table) 04/29/18 04/30/18 04/30/18 Range/Units 20:57 05:20 05:20 RBC 3.28 L (3.80-5.40) m/uL Hgb 11.1 L (11.4-16.0) gm/dL MCV 103.9 H (80.0-100.0) fL RDW 18.6 H (11.5-15.5) % Potassium 2.8 L* (3.5-5.1) mmol/L Chloride 114 H (98-107) mmol/L BUN 5 L (7-17) mg/dL Glucose 121 H (74-99) mg/dL Calcium 8.0 L (8.4-10.2) mg/dL Alkaline Phosphatase 136 H (38-126) U/L Total Protein 4.6 L (6.3-8.2) g/dL Albumin 2.2 L (3.5-5.0) g/dL Microbiology - Last 24 Hours (Table) 04/28/18 01:00 Urine Culture - Final Urine,Voided
[2018-04-30] MEDS: DEXTROSE 5%-0.45% NACL 1,000 ML IV SCH (11:38)
[2018-04-30] MEDS: MULTIVITAMINS, THERA 1 EACH TAB PO SCH (11:39)
[2018-04-30] MEDS: THIAMINE 100 MG TAB PO SCH ×2 (11:39→18:16)
[2018-04-30] MEDS: cefTRIAXone IN SWFI 1,000 MG/10 ML SYRINGE IVP SCH (21:34)
[2018-04-30] MEDS: GABAPENTIN 300 MG CAP PO SCH (21:35)
[2018-05-01] MEDS: DEXTROSE 5%-0.45% NACL 1,000 ML IV SCH ×2 (00:23→12:46)
[2018-05-01] MEDS: LACTULOSE 20 GM/30 ML CUP PO SCH (09:20)
[2018-05-01] MEDS: ENOXAPARIN 40 MG/0.4 ML SYRINGE SQ SCH (09:20)
[2018-05-01 10:19] LABS: ALT 33 U/L (9-52); AST 19 U/L (14-36); Albumin 2.2 g/dL (3.5-5.0); Alkaline Phosphatase 123 U/L (38-126); Anion Gap 7 mmol/L; Blood Urea Nitrogen 3 mg/dL (7-17); Calcium 8.1 mg/dL (8.4-10.2); Carbon Dioxide 24 mmol/L (22-30); Chloride 112 mmol/L (98-107); Glucose 114 mg/dL (74-99); Sodium 143 mmol/L (137-145); Total Bilirubin 0.2 mg/dL (0.2-1.3); Total Protein 4.5 g/dL (6.3-8.2)
[2018-05-01 11:46] LABS: Potassium 2.9 mmol/L (3.5-5.1)
[2018-05-01] MEDS ORDERED: Potassium Replacement Protocol 1 EACH MISC MISCELLANE PRN (11:49)
--- NOTE | 2018-05-01 12:05 | P.PN ---
Subjective Progress Note Date: 05/01/18 Patient answering questions appropriately today, complains of right hand cramping. Otherwise no acute events overnight Objective - Vital Signs Vital signs: Vital Signs Temp 98.3 F 05/01/18 05:43 Pulse 91 05/01/18 05:43 Resp 17 05/01/18 05:43 BP 142/92 05/01/18 05:43 Pulse Ox 98 05/01/18 05:43 Intake & Output 04/30/18 05/01/18 05/01/18 18:59 06:59 18:59 Weight 52.617 kg Other: Voiding Method Bedpan Bedpan Bedpan Diaper Diaper Diaper # Voids 3 2 - Exam Constitutional: No acute distress, conversant, pleasant Eyes: Anicteric sclerae, moist conjunctiva, no lid-lag, PERRLA ENMT: NC/AT,Oropharynx clear, no erythema, exudates Neck:Supple, FROM, no masses, or JVD, No carotid bruits; No thyromegaly Lungs: Clear to auscultation, Clear to percussion, Normal respiratory effort, no accessory muscle use Cardiovascular: Heart regular in rate and rhythm, No murmurs, gallops, or rubs no peripheral edema Abdominal: Soft Nontender, nom distended, no guarding, no rebound or rigidity, Normoactive bowel sounds No hepatomegaly, No splenomegaly, No palpable mass No abdominal wall hernia noted Skin: Normal temperature, tone, texture, turgor, No induration No subcutaneous nodules, No rash, lesions, No ulcers Extremities:No digital cyanosis No clubbing, Pedal pulses intact and symmetrical Radial pulses intact and symmetrical Normal gait and station, No calf tenderness Psychiatric: Alert and oriented to person, place and time, Appropriate affect Intact judgement Neuro: Muscles Strength 5/5 in all 4 extremities, Sensation to light touch grossly present throughout, Cranial nerves II-XII grossly intact. No focal sensory deficits - Labs CBC & Chem 7: 04/30/18 05:20 05/01/18 08:50 Labs: Abnormal Lab Results - Last 24 Hours (Table) 05/01/18 Range/Units 08:50 Potassium 2.9 L* (3.5-5.1) mmol/L Chloride 112 H (98-107) mmol/L BUN 3 L (7-17) mg/dL Creatinine 0.50 L (0.52-1.04) mg/dL Glucose 114 H (74-99) mg/dL Calcium 8.1 L (8.4-10.2) mg/dL Total Protein 4.5 L (6.3-8.2) g/dL Albumin 2.2 L (3.5-5.0) g/dL Assessment and Plan (1) Metabolic encephalopathy Narrative/Plan: * Secondary to profound hypokalemia superimposed on alcohol withdrawal with possible underlying alcohol-related encephalopathy * CT of the head negative for any acute intracranial and abnormality only mastoiditis * Echocardiogram showing normal ejection fraction preserved EF of 55-60% * Unlikely to be hepatic encephalopathy we'll discontinue lactulose serum ammonia level was only 43 Current Visit: Yes Status: Acute Code(s): G93.41 - METABOLIC ENCEPHALOPATHY SNOMED Code(s): 82796235 (2) Chronic alcohol dependence, continuous Narrative/Plan: * Continue with symptom triggered CIWA protocol when necessary * Continue daily folate thiamine and multivitamin replacement Current Visit: Yes Status: Acute Code(s): F10.20 - ALCOHOL DEPENDENCE, UNCOMPLICATED SNOMED Code(s): 469862508 (3) Hypokalemia Narrative/Plan: * Potassium 2.9 today and patient is symptomatic * continue potassium replacement protocol * We'll check a magnesium since this has not been checked during this admission we'll replace if depleted * We'll start daily potassium replacement with 20 mEq by mouth daily Current Visit: No Status: Acute Code(s): E87.6 - HYPOKALEMIA SNOMED Code(s ): 74602076 (4) Alcohol withdrawal delirium Current Visit: Yes Status: Acute Code(s): F10.231 - ALCOHOL DEPENDENCE WITH WITHDRAWAL DELIRIUM SNOMED Code(s): 5835141 (5) Hyperammonemia Narrative/Plan: * Not related to hepatic encephalopathy likely secondary to ongoing Vimpat use for seizures Current Visit: Yes Status: Acute Code(s): E72.20 - DISORDER OF UREA CYCLE METABOLISM, UNSPECIFIED SNOMED Code(s): 5523047 Plan: Anticipate discharge in the next 1-2 days, with PT recommending home health with PT
[2018-05-01 12:08] LABS: Anisocytosis Slight; Basophils # (A) 0.1 k/uL (0-0.2); Basophils % (A) 1 %; Eosinophils # (A) 0.2 k/uL (0-0.7); Eosinophils % (A) 3 %; HCT 35.2 % (34.0-46.0); HGB 11.5 gm/dL (11.4-16.0); Hypochromasia Slight; Lymphocytes # (A) 2.3 k/uL (1.0-4.8); Lymphocytes % (A) 40 %; MCH 33.8 pg (25.0-35.0); MCHC 32.6 g/dL (31.0-37.0); MCV 103.7 fL (80.0-100.0); Macrocytosis Moderate; Mean Platelet Volume 11.4; Monocytes # (A) 0.4 k/uL (0-1.0); Monocytes % (A) 7 %; Neutrophils # (A) 2.7 k/uL (1.3-7.7); Neutrophils % (A) 45 %; Platelet Count 161 k/uL (150-450); RDW 17.8 % (11.5-15.5); WBC 5.9 k/uL (3.8-10.6)
[2018-05-01] MEDS: MULTIVITAMINS, THERA 1 EACH TAB PO SCH (12:46)
[2018-05-01] MEDS: POTASSIUM CHLORIDE ER 20 MEQ TAB.ER PO SCH ×3 (12:46→14:57)
[2018-05-01] MEDS: THIAMINE 100 MG TAB PO SCH ×2 (12:46→18:50)
[2018-05-01 13:09] LABS: Large Platelets Present
[2018-05-01 15:46] VITALS: BMI 18.7
[2018-05-01] MEDS: GABAPENTIN 300 MG CAP PO SCH (22:37)
[2018-05-01 22:47] VITALS: RESP 17
[2018-05-02] MEDS: DEXTROSE 5%-0.45% NACL 1,000 ML IV SCH ×2 (05:02→14:25)
[2018-05-02 06:11] VITALS: BP 133/85; PULSE 91; TEMP 97.6
[2018-05-02] MEDS ORDERED: POTASSIUM CHLORIDE ER 20 MEQ TAB.ER PO SCH (09:00)
[2018-05-02 09:40] LABS: ALT 33 U/L (9-52); AST 27 U/L (14-36); Albumin 2.4 g/dL (3.5-5.0); Alkaline Phosphatase 132 U/L (38-126); Anion Gap 6 mmol/L; Blood Urea Nitrogen 6 mg/dL (7-17); Calcium 8.6 mg/dL (8.4-10.2); Carbon Dioxide 27 mmol/L (22-30); Chloride 110 mmol/L (98-107); Glucose 101 mg/dL (74-99); Magnesium 1.9 mg/dL (1.6-2.3); Potassium 4.1 mmol/L (3.5-5.1); Sodium 143 mmol/L (137-145); Total Bilirubin <0.1 mg/dL (0.2-1.3); Total Protein 4.9 g/dL (6.3-8.2)
[2018-05-02] MEDS: ENOXAPARIN 40 MG/0.4 ML SYRINGE SQ SCH (09:41)
[2018-05-02 09:55] LABS: Anisocytosis Slight; HCT 35.9 % (34.0-46.0); HGB 11.4 gm/dL (11.4-16.0); Hypochromasia Slight; MCH 32.8 pg (25.0-35.0); MCHC 31.7 g/dL (31.0-37.0); MCV 103.7 fL (80.0-100.0); Macrocytosis Moderate; Mean Platelet Volume 11.1; Platelet Count 246 k/uL (150-450); RBC 3.47 m/uL (3.80-5.40); RDW 18.1 % (11.5-15.5)
[2018-05-02 10:50] LABS: Neutrophils % (M) 59 %; Nucleated Red Blood Cells 0 /100 WBC (0-0); Total Cells Counted 100
[2018-05-02] MEDS: MULTIVITAMINS, THERA 1 EACH TAB PO SCH (14:32)
[2018-05-02] MEDS: THIAMINE 100 MG TAB PO SCH (14:32)
--- NOTE | 2018-05-02 14:37 | P.DS ---
Providers Date of admission: 04/27/18 19:46 Expected date of discharge: 05/02/18 Attending physician: Stephanie Moreno MD Consults: 04/28/18 06:08 Consult Physician Routine Consulting Provider: Matt Briones Consult Reason/Comments: elevated troponins, hypokalemia Do you want consulting provider notified?: Yes, Notify in am Primary care physician: Noa Mae - More Diagnosis(es) (1) Metabolic encephalopathy Current Visit: Yes Status: Acute (2) Chronic alcohol dependence, continuous Current Visit: Yes Status: Acute (3) Hypokalemia Current Visit: No Status: Acute (4) Alcohol withdrawal delirium Current Visit: Yes Status: Acute (5) Hyperammonemia Current Visit: Yes Status: Acute Hospital Course: The patient is a 57-year-old female with a past medical history of Chronic alcohol dependence that presented with that was admitted with confusion felt to be secondary to acute metabolic encephalopathy secondary to profound electrolyte abnormality and the most notably hypokalemia superimposed on alcohol related encephalopathy and withdrawal. The patient had a CT of the head that was negative only showed some mastoiditis. Echocardiogram showed normal ejection fraction of 55-60%. It was initially thought that hepatic encephalopathy was contributing to her confusion as her serum ammonia level was only 43, she was started on lactulose as was later discontinued after attributed her hyperalbuminemia secondary to ongoing antiepileptic medication use (vimpat). The patient was noted to be profoundly symptomatic hypokalemic presenting with a serum potassium of 2.9, she was started on potassium replacement protocol and check of her magnesium level was normal . For her alcohol withdrawal the patient was started on symptom triggered CIWA protocol with when necessary Ativan and she was continued on folate time and multivitamin replacement. The patient gradually improved as her potassium level normalized, she was started on maintenance of K-Dur 20 meq by mouth daily and then subsequently discharged home in stable condition and instructed to follow up with her PCP in 2-3 day.this discharge process took approximately 35 minutes New prescription is a discharge K-Dur 20 localized by mouth daily Constitutional: No acute distress, conversant, pleasant Eyes: Anicteric sclerae, moist conjunctiva, no lid-lag, PERRLA ENMT: NC/AT,Oropharynx clear, no erythema, exudates Neck:Supple, FROM, no masses, or JVD, No carotid bruits; No thyromegaly Lungs: Clear to auscultation, Clear to percussion, Normal respiratory effort, no accessory muscle use Cardiovascular: Heart regular in rate and rhythm, No murmurs, gallops, or rubs no peripheral edema Abdominal: Soft Nontender, nom distended, no guarding, no rebound or rigidity, Normoactive bowel sounds No hepatomegaly, No splenomegaly, No palpable mass No abdominal wall hernia noted Skin: Normal temperature, tone, texture, turgor, No induration No subcutaneous nodules, No rash, lesions, No ulcers Extremities:No digital cyanosis No clubbing, Pedal pulses intact and symmetrical Radial pulses intact and symmetrical Normal gait and station, No calf tenderness Psychiatric: Alert and oriented to person, place and time, Appropriate affect Intact judgement Neuro: Muscles Strength 5/5 in all 4 extremities, Sensation to light touch grossly present throughout, Cranial nerves II-XII grossly intact. No focal sensory deficits Patient Condition at Discharge: Good Plan - Discharge Summary Discharge Rx Participant: No New Discharge Prescriptions: New Potassium Chloride ER [K-Dur 20] 20 meq PO DAILY #30 tab Continue Omeprazole [PriLOSEC] 20 mg PO DAILY Lacosamide [Vimpat] 50 mg PO DAILY Gabapentin [Neurontin] 300 mg PO DIRECTED Methotrexate Sodium [Methotrexate] 7.5 mg PO TU Folic Acid 1 mg PO DAILY DULoxetine HCL [Cymbalta] 30 mg PO DAILY Alendronate Sodium 70 mg PO Q7D Ibuprofen [Motrin] 600 mg PO Q6HR PRN PRN Reason: Pain Metoprolol Succinate (ER) [Toprol XL] 50 mg PO DAILY DULoxetine HCL [Cymbalta] 60 mg PO DAILY Discharge Medication List Omeprazole [PriLOSEC] 20 mg PO DAILY 02/06/16 [History] Lacosamide [Vimpat] 50 mg PO DAILY 12/19/16 [History] Gabapentin [Neurontin] 300 mg PO DIRECTED 08/07/17 [History] Alendronate Sodium 70 mg PO Q7D 04/27/18 [History] DULoxetine HCL [Cymbalta] 30 mg PO DAILY 04/27/18 [History] Folic Acid 1 mg PO DAILY 04/27/18 [History] Methotrexate Sodium [Methotrexate] 7.5 mg PO TU 04/27/18 [History] DULoxetine HCL [Cymbalta] 60 mg PO DAILY 04/28/18 [History] Ibuprofen [Motrin] 600 mg PO Q6HR PRN 04/28/18 [History] Metoprolol Succinate (ER) [Toprol XL] 50 mg PO DAILY 04/28/18 [History] Potassium Chloride ER [K-Dur 20] 20 meq PO DAILY #30 tab 05/01/18 [Rx] Follow up Appointment(s)/Referral(s): Zane Sears MD [STAFF PHYSICIAN] - 05/23/18 3:30 pm Noa Mae MD [Primary Care Provider] - 05/07/18 8:30 am Patient Instructions/Handouts: Encephalopathy (DC) Activity/Diet/Wound Care/Special Instructions: [facility] is the home care that is able to take your insurance for home Physical and Occupational therapy. They can be reached at [phone]. NO alcohol usage. References provided. NO smoking-cessation information given. Cardiac diet. Activity as tolerated. Fall precautions. Discharge Disposition: HOME SELF-CARE
== END 2018-05-02 14:37 | disposition home health service (06) | DRG 57 ==
LOC: EC 18:32 → 4MS4W 19:46
PROVIDERS: ADMIT Internal Medicine; ATTEND Internal Medicine
DX: G31.2 Degeneration of nervous system due to alcohol (principal); E72.20 Disorder of urea cycle metabolism, unspecified; F10.231 Alcohol dependence with withdrawal delirium; N39.0 Urinary tract infection, site not specified; E87.6 Hypokalemia; F17.210 Nicotine dependence, cigarettes, uncomplicated; F32.9 Major depressive disorder, single episode, unspecified; H70.90 Unspecified mastoiditis, unspecified ear; I10 Essential (primary) hypertension; I73.00 Raynaud's syndrome without gangrene; L80 Vitiligo; M06.9 Rheumatoid arthritis, unspecified; R29.6 Repeated falls; R56.9 Unspecified convulsions; G62.9 Polyneuropathy, unspecified; M19.90 Unspecified osteoarthritis, unspecified site; R77.9 Abnormality of plasma protein, unspecified; R32 Unspecified urinary incontinence; T50.995A Adverse effect of other drugs, medicaments and biological substances, initial encounter; Y92.009 Unspecified place in unspecified non-institutional (private) residence as the place of occurrence of the external cause; Z79.899 Other long term (current) drug therapy; Z96.611 Presence of right artificial shoulder joint; Z86.14 Personal history of Methicillin resistant Staphylococcus aureus infection; Z89.611 Acquired absence of right leg above knee; Z82.49 Family history of ischemic heart disease and other diseases of the circulatory system; Z83.3 Family history of diabetes mellitus; Z84.89 Family history of other specified conditions
CPT/HCPCS: 36415; 70450; 80053; 80074; 80306; 80320; 81001; 82140; 82550; 82553; 83520; 83605; 83690; 83735; 84100; 84132; 84484; 85025; 85610; 85730; 87086; 93005; 93306; 96365; 96375; 99285

== ENCOUNTER 2018-05-12 17:37 | Inpatient (IN) | payer OTHER ==
--- NOTE | 2018-05-12 18:33 | ED ---
General Adult HPI - General Chief complaint: Extremity Problem,Nontraumatic Stated complaint: Leg Swelling Time Seen by Provider: 05/12/18 18:20 Source: patient, RN notes reviewed, old records reviewed Mode of arrival: wheelchair Limitations: no limitations - History of Present Illness Initial comments: This is a 67-year-old female the ER for evaluation patient does say for evaluation of left lower extremity edema and swelling. Patient does have also an anterior leg states she is concern for blood clot but also concern for significant infection as she has lost right leg before to similar issue. Denies fever. Is complaining of mainly pain in the left lower extremity - Related Data Home Medications Medication Instructions Recorded Confirmed Omeprazole [PriLOSEC] 20 mg PO DAILY 02/06/16 05/12/18 Lacosamide [Vimpat] 50 mg PO DAILY 12/19/16 05/12/18 Alendronate Sodium 70 mg PO TH 04/27/18 05/12/18 DULoxetine HCL [Cymbalta] 30 mg PO DAILY 04/27/18 05/12/18 Folic Acid 1 mg PO DAILY 04/27/18 05/12/18 Methotrexate Sodium [Methotrexate] 7.5 mg PO TU 04/27/18 05/12/18 DULoxetine HCL [Cymbalta] 60 mg PO DAILY 04/28/18 05/12/18 Ibuprofen [Motrin] 600 mg PO Q6HR PRN 04/28/18 05/12/18 Metoprolol Succinate (ER) [Toprol 50 mg PO DAILY 04/28/18 05/12/18 XL] ARIPiprazole [Abilify] 2 mg PO HS 05/12/18 05/12/18 Doxycycline Hyclate 100 mg PO BID PRN 05/12/18 05/12/18 Gabapentin [Neurontin] 600 mg PO TID 05/12/18 05/12/18 HYDROcodone/APAP 7.5-325MG [[place] 1 tab PO BID PRN 05/12/18 05/12/18 7.5-325] Hydroxychloroquine Sulfate 200 mg PO DAILY 05/12/18 05/12/18 [Plaquenil] Previous Rx's Medication Instructions Recorded Potassium Chloride ER [K-Dur 20] 20 meq PO DAILY #30 tab 05/01/18 Allergies Allergy/AdvReac Type Severity Reaction Status Date / Time No Known Allergies Allergy Verified 05/12/18 18:10 Review of Systems ROS Statement: Those systems with pertinent positive or pertinent negative responses have been documented in the HPI. ROS Other: All systems not noted in ROS Statement are negative. Past Medical History Past Medical History: Hypertension, Osteoarthritis (OA), Rheumatoid Arthritis ( RA) Additional Past Medical History / Comment(s): neuropathy Vitiligo, Raynaud's peripheral neuropathy. History of Any Multi-Drug Resistant Organisms: MRSA Date of last positivie culture/infection: 06/11/12 MDRO Source:: Unknown Past Surgical History: Appendectomy, Section, Joint Replacement, Orthopedic Surgery, Tonsillectomy, Tubal Ligation Additional Past Surgical History / Comment(s): right shoulder replacement, right leg amputation Past Anesthesia/Blood Transfusion Reactions: No Reported Reaction Past Psychological History: Depression Smoking Status: Current every day smoker Past Alcohol Use History: Daily Past Drug Use History: None Reported - Past Family History Mother Family Medical History: No Reported History, Diabetes Mellitus, Hyperlipidemia, Hypertension Father Family Medical History: Diabetes Mellitus, Hypertension Sister(s) Family Medical History: No Reported History Son(s) Family Medical History: No Reported History General Exam - General Exam Comments Initial Comments: Left lower extremity has significant swelling and edema erythema redness. Patient states is in severe pain. Definite pedal edema as well Limitations: no limitations General appearance: alert, in no apparent distress Head exam: Present: atraumatic, normocephalic, normal inspection Eye exam: Present: normal appearance, PERRL, EOMI. Absent: scleral icterus, conjunctival injection, periorbital swelling ENT exam: Present: normal exam, mucous membranes moist Neck exam: Present: normal inspection. Absent: tenderness, meningismus, lymphadenopathy Respiratory exam: Present: normal lung sounds bilaterally. Absent: respiratory distress, wheezes, rales, rhonchi, stridor Cardiovascular Exam: Present: regular rate, normal rhythm, normal heart sounds. Absent: systolic murmur, diastolic murmur, rubs, gallop, clicks GI/Abdominal exam: Present: soft, normal bowel sounds. Absent: distended, tenderness, guarding, rebound, rigid Extremities exam: Present: normal inspection, full ROM, normal capillary refill. Absent: tenderness, pedal edema, joint swelling, calf tenderness Back exam: Present: normal inspection Neurological exam: Present: alert, oriented X3, CN II-XII intact Psychiatric exam: Present: normal affect, normal mood Skin exam: Present: warm, dry, intact, normal color. Absent: rash Course Vital Signs 05/12/18 05/12/18 17:50 19:25 Temperature 99.1 F 98.2 F Pulse Rate 100 82 Respiratory 18 18 Rate Blood Pressure 140/85 107/57 O2 Sat by Pulse 97 97 Oximetry - Reevaluation(s) Reevaluation #1: 05/12/18 21:00 Medical record and prior hospitalizations reviewed Medical Decision Making - Medical Decision Making 57 female the ER for evaluation. Patient has significant cellulitis of left lower extremity. History of diabetes history of amputation of right lower extremity secondary to cellulitis infection. Patient will be admitted for IV antibiotics - Lab Data Lab Results 05/12/18 Range/Units 19:25 PT 9.7 (9.0-12.0) sec INR 1.0 (<1.2) APTT 22.9 (22.0-30.0) sec - Radiology Data Radiology results: report reviewed (Ultrasound left lower Shorty negative for DVT, x-ray left lower extremity negative), image reviewed Disposition Clinical Impression: Diabetes mellitus, Chronic alcohol dependence, continuous, Hyperammonemia, Left leg cellulitis Disposition: ADMITTED IP TO THIS HOSP Condition: Good Is patient prescribed a controlled substance at d/c from ED?: No Referrals: Noa Mae MD [Primary Care Provider] - 1-2 days
--- NOTE | 2018-05-12 19:41 | US ---
EXAMINATION TYPE: US venous doppler duplex LE RT DATE OF EXAM: 05/12/2018 7:09 PM COMPARISON: Previous dated 07/04/2017 CLINICAL HISTORY: Pain. SIDE PERFORMED: Right TECHNIQUE: The lower extremity deep venous system is examined utilizing real time linear array sonog lisandra with graded compression, doppler sonography and color-flow sonography. VESSELS IMAGED: External Iliac Vein (EIV) Common Femoral Vein Deep Femoral Vein Greater Saphenous Vein * Femoral Vein Popliteal Vein Small Saphenous Vein * Proximal Calf Veins (* superficial vessels) Pt is a below the knee amputee. Grayscale, color doppler, spectral doppler imaging performed of the deep veins of the right lower extremities. There is normal flow, compressibility, vascular waveforms . Right Leg: Negative for DVT Edema noted throughout leg seen in images. IMPRESSION: No evident deep venous arthrosis at or above the right knee, lower extremity edema is n oted, correlate to exclude cellulitis
[2018-05-12] MEDS ORDERED: VANCOMYCIN IV PER PHARMACY 1 EACH MISC MISCELLANE PRN ×2 (20:14→21:59)
[2018-05-12] MEDS ORDERED: VANCOMYCIN 1,000 MG in SODIUM CHLORIDE 0.9% 250 ML IVPB STA (20:23)
[2018-05-12 20:49] LABS: Partial Thromboplastin Time 22.9 sec (22.0-30.0); Prothrombin Time 9.7 sec (9.0-12.0)
--- NOTE | 2018-05-12 20:57 | XR ---
Left foot HISTORY: Swelling and erythema 3 views of the left foot Soft tissue swelling is noted. Bone mineralization, joint spaces and alignment are maintained. No fra cture or dislocation. There is a plantar calcaneal spur. Lucency is present in the soft tissues over the dorsum of the foot. IMPRESSION: Correlate for cellulitis, difficult to exclude abscess.
--- NOTE | 2018-05-12 20:58 | XR ---
Left leg HISTORY: Erythema and swelling 2 views of the left leg on 4 images Soft tissue swelling is noted. Bone mineralization mildly reduced. Alignment and joint spaces are kaleigh ntained. IMPRESSION: Correlate for cellulitis.
[2018-05-12 20:59] LABS: ALT 33 U/L (9-52); AST 23 U/L (14-36); Albumin 2.7 g/dL (3.5-5.0); Alkaline Phosphatase 183 U/L (38-126); Anion Gap 12 mmol/L; Blood Urea Nitrogen 7 mg/dL (7-17); Calcium 8.8 mg/dL (8.4-10.2); Carbon Dioxide 22 mmol/L (22-30); Chloride 104 mmol/L (98-107); Glucose 87 mg/dL (74-99); Magnesium 1.7 mg/dL (1.6-2.3); Phosphorus 3.8 mg/dL (2.5-4.5); Potassium 3.7 mmol/L (3.5-5.1); Sodium 138 mmol/L (137-145); Total Bilirubin 0.3 mg/dL (0.2-1.3); Total Protein 5.5 g/dL (6.3-8.2)
[2018-05-12 21:04] LABS: Anisocytosis Slight; HCT 36.5 % (34.0-46.0); HGB 11.5 gm/dL (11.4-16.0); MCHC 31.6 g/dL (31.0-37.0); MCV 104.5 fL (80.0-100.0); Macrocytosis Moderate; Mean Platelet Volume 10.6; RBC 3.49 m/uL (3.80-5.40); WBC 11.6 k/uL (3.8-10.6)
[2018-05-12 21:06] LABS: Creatine Kinase <20 U/L (30-135)
[2018-05-12 21:19] LABS: Creatine Kinase MB 1.1 ng/mL (0.0-2.4); Troponin I <0.012 ng/mL (0.000-0.034)
[2018-05-12 21:25] LABS: Band Neutrophils % 1 %; Eosinophils # (M) 0.23 k/uL (0-0.7); Lymphocytes # (M) 3.13 k/uL (1.0-4.8); Monocytes # (M) 1.28 k/uL (0-1.0); Neutrophils % (M) 59 %; Nucleated Red Blood Cells 0 /100 WBC (0-0); Total Cells Counted 100
[2018-05-12 21:29] LABS: Platelet Count 348 k/uL (150-450)
[2018-05-12] MEDS: SODIUM CHLORIDE 0.9% 1,000 ML IV STA (21:53)
[2018-05-12] MEDS ORDERED: IBUPROFEN 600 MG TAB PO PRN (21:57)
[2018-05-12] MEDS ORDERED: cefTRIAXone IN SWFI 1,000 MG/10 ML SYRINGE IVP SCH (22:00)
[2018-05-12 23:27] VITALS: BMI 19.4
[2018-05-12] MEDS: GABAPENTIN 300 MG CAP PO SCH (23:48)
[2018-05-12] MEDS: HYDROcodone/APAP 7.5-325MG 1 EACH TAB PO PRN (23:49)
--- NOTE | 2018-05-13 01:30 | P.HPIM ---
History of Present Illness H&P Date: 05/12/18 Chief Complaint: Left lower extremity swelling 57-year-old female with history of hypertension and rheumatoid arthritis alcohol abuse. Patient presented to the hospital with concern regarding left lower extremity swelling to rule out infection. Patient has recently been discharged from the hospital around 2 weeks ago where she stayed at [facility] and then was released 3 days ago and went home. Since then she has noticed progressive swelling of her left lower extremity decided to come to the hospital today to rule out infectious process she denies any fevers or chills she denies any pain out of the ordinary she has chronic peripheral neuropathy. However she saw area of 5X5 cm of erythema over the proximal anterior tibia for which got her concerned. She denies any drainage however she recalls a lot of bumping she endorses causing a lot of bruising body. Patient has history of right BKA and she does not want the same fate for her left lower extremity. She reports that she lost her leg is of infection at that time. Otherwise patient denies any chest pain or trouble breathing denies any fevers or chills denies any headache denies any changes in vision or hearing denies any focal neurologic deficits at this time Review of Systems Pertinent positives as noted in HPI. All other systems were reviewed and are negative Past Medical History Past Medical History: Hypertension, Osteoarthritis (OA), Rheumatoid Arthritis ( RA) Additional Past Medical History / Comment(s): neuropathy Vitiligo, Raynaud's peripheral neuropathy. History of Any Multi-Drug Resistant Organisms: MRSA Date of last positivie culture/infection: 06/11/12 MDRO Source:: Unknown Past Surgical History: Appendectomy, Section, Joint Replacement, Orthopedic Surgery, Tonsillectomy, Tubal Ligation Additional Past Surgical History / Comment(s): right shoulder replacement, right leg amputation Past Anesthesia/Blood Transfusion Reactions: No Reported Reaction Past Psychological History: Depression Smoking Status: Current every day smoker Past Alcohol Use History: Daily Past Drug Use History: None Reported - Past Family History Mother Family Medical History: No Reported History, Diabetes Mellitus, Hyperlipidemia, Hypertension Father Family Medical History: Diabetes Mellitus, Hypertension Sister(s) Family Medical History: No Reported History Son(s) Family Medical History: No Reported History Medications and Allergies Home Medications Medication Instructions Recorded Confirmed Type Omeprazole [PriLOSEC] 20 mg PO DAILY 02/06/16 05/12/18 History Lacosamide [Vimpat] 50 mg PO DAILY 12/19/16 05/12/18 History Alendronate Sodium 70 mg PO TH 04/27/18 05/12/18 History DULoxetine HCL [Cymbalta] 30 mg PO DAILY 04/27/18 05/12/18 History Folic Acid 1 mg PO DAILY 04/27/18 05/12/18 History Methotrexate Sodium [Methotrexate] 7.5 mg PO TU 04/27/18 05/12/18 History DULoxetine HCL [Cymbalta] 60 mg PO DAILY 04/28/18 05/12/18 History Ibuprofen [Motrin] 600 mg PO Q6HR PRN 04/28/18 05/12/18 History Metoprolol Succinate (ER) [Toprol 50 mg PO DAILY 04/28/18 05/12/18 History XL] Potassium Chloride ER [K-Dur 20] 20 meq PO DAILY #30 tab 05/01/18 05/12/18 Rx ARIPiprazole [Abilify] 2 mg PO HS 05/12/18 05/12/18 History Doxycycline Hyclate 100 mg PO BID PRN 05/12/18 05/12/18 History Gabapentin [Neurontin] 600 mg PO TID 05/12/18 05/12/18 History HYDROcodone/APAP 7.5-325MG [[place] 1 tab PO BID PRN 05/12/18 05/12/18 History 7.5-325] Hydroxychloroquine Sulfate 200 mg PO DAILY 05/12/18 05/12/18 History [Plaquenil] Allergies Allergy/AdvReac Type Severity Reaction Status Date / Time No Known Allergies Allergy Verified 05/12/18 18:10 Physical Exam Vitals: Vital Signs Temp Pulse Resp BP Pulse Ox 05/12/18 19:25 98.2 F 82 18 107/57 97 05/12/18 17:50 99.1 F 100 18 140/85 97 Intake and Output 05/12/18 05/12/18 05/12/18 06:59 14:59 22:59 Other: Weight 53.07 kg Constitutional: No acute distress, conversant, pleasant, patient will contact precautions due to MRSA Eyes: Anicteric sclerae, moist conjunctiva, no lid-lag Pupils equal round reactive to light ENMT: NC/AT Oropharynx clear, no erythema, or exudates Neck: Supple, FROM, no masses, or JVD No carotid bruits No thyromegaly Lungs: Clear to auscultation Clear to percussion Normal respiratory effort, no accessory muscle use Cardiovascular: Heart regular in rate and rhythm, No murmurs, gallops, or rubs Left lower extremity pitting edema +2 Abdominal: Soft Nontender, no guarding, rebound or rigidity Abdomen moving with respiration Normoactive bowel sounds No hepatomegaly, No splenomegaly No palpable mass No abdominal wall hernia noted Skin: There is area of 5 x 5 cm over the proximal anterior tibia with redness and central clearing with tenderness to palpation no induration, no warmth to the touch Normal temperature, tone, texture, turgor No induration No subcutaneous nodules Multiple ecchymotic spots over the bilateral upper extremities No ulcers Extremities: No digital cyanosis No clubbing Pedal pulses intact and symmetrical Radial pulses intact and symmetrical No calf tenderness Right lower extremity BKA stump with an area of erythema over the lateral aspect and petechia in the area of wound healing medial aspect Psychiatric: Alert and oriented to person, place and time Appropriate affect fair judgment Neuro Muscles Strength 4/5 in all 4 extremities Sensation to light touch grossly present throughout Cranial nerves II-XII grossly intact No focal sensory deficits Lymphatics: no palpable cervical or supraclavicular , or inguinal lymph nodes Results CBC & Chem 7: 05/12/18 19:25 05/12/18 19:25 Labs: Abnormal Lab Results - Last 24 Hours (Table) 05/12/18 05/12/18 05/12/18 Range/Units 19:25 19:25 19:25 WBC 11.6 H (3.8-10.6) k/uL RBC 3.49 L (3.80-5.40) m/uL MCV 104.5 H (80.0-100.0) fL RDW 17.0 H (11.5-15.5) % Monocytes # (Manual) 1.28 H (0-1.0) k/uL Alkaline Phosphatase 183 H (38-126) U/L Total Creatine Kinase <20 L (30-135) U/L Total Protein 5.5 L (6.3-8.2) g/dL Albumin 2.7 L (3.5-5.0) g/dL Assessment and Plan Assessment: 57-year-old female with history of hypertension and rheumatoid arthritis, admitted to the hospital as inpatient with expected length history of more than 2 days to rule out cellulitis of the left lower extremity as patient presented with erythema and swelling Plan: #Left lower extremity swelling and slight localized erythema over the proximal anterior hennessy rule out cellulitis Patient started on vancomycin Cultures ordered Mild elevation of white count no fever Macrocytosis without anemia Check vitamin B12 and RBC folate Left lower extremity swelling Compression stocking Hypertension currently controlled Resume home medications History of rheumatoid arthritis and Raynaud's Currently compensated and stable Continue home medications DVT prophylaxis On Lovenox Preformed a thorough record review from recent hospitalization recent hospitalization for alcohol abuse, 2-D echocardiogram done at that time showed left ventricular ejection fraction of 55-60% preserved, patient was discharged to [facility] 2 weeks ago Surrogate decision-maker: Patient has been CODE STATUS: No code Discussed with: Patient, ER, RN Anticipated discharge: 48-[address]: Home A total of 50 minutes was spent on the care of this complex patient more than 50 % of the time was spent in counseling and care coordination.
[2018-05-13] MEDS ORDERED: VANCOMYCIN 1,000 MG in SODIUM CHLORIDE 0.9% 250 ML IVPB SCH (06:00)
[2018-05-13] MEDS: PANTOPRAZOLE 40 MG TABLET PO SCH (06:36)
[2018-05-13] MEDS: ENOXAPARIN 40 MG/0.4 ML SYRINGE SQ SCH (09:14)
[2018-05-13] MEDS: LACOSAMIDE 50 MG TABLET PO SCH (09:14)
[2018-05-13] MEDS: METOPROLOL SUCCINATE (ER) 50 MG TAB.ER.24H PO SCH (09:14)
[2018-05-13] MEDS: GABAPENTIN 300 MG CAP PO SCH ×3 (09:14→21:42)
[2018-05-13] MEDS: DULoxetine HCL 60 MG CAPSULE.DR PO SCH (09:14)
[2018-05-13] MEDS: DULoxetine HCL 30 MG CAPSULE.DR PO SCH (09:14)
[2018-05-13] MEDS: FOLIC ACID 1 MG TAB PO SCH (12:36)
--- NOTE | 2018-05-13 13:15 | P.PN ---
Subjective Progress Note Date: 05/13/18 Principal diagnosis: Left leg cellulitis. Doing better, no leg pain. No n/v. Objective - Vital Signs Vital signs: Vital Signs Temp 97.4 F L 05/13/18 09:11 Pulse 78 05/13/18 09:11 Resp 18 05/13/18 09:11 BP 89/59 05/13/18 09:11 Pulse Ox 98 05/13/18 09:11 Intake & Output 05/12/18 05/13/18 05/13/18 18:59 06:59 18:59 Intake Total 120 Balance 120 Weight 53.07 kg 53.07 kg Intake: Oral 120 Other: # Voids 2 - Exam Constitutional: No acute distress, conversant, pleasant Eyes:Anicteric sclerae, moist conjunctiva, no lid-lag, PERRLA, ENMT: Oropharynx clear, no erythema, exudates Neck: Supple, FROM, no masses, or JVD, No carotid bruits, No thyromegaly Lungs: Clear to auscultation, Clear to percussion, Normal respiratory effort, no accessory muscle use Cardiovascular: Heart regular in rate and rhythm, No murmurs, gallops, or rubs, No peripheral edema Abdominal: Soft, Nontender, no guarding, rebound or rigidity, Normoactive bowel sounds, No hepatomegaly, No splenomegaly, No palpable mass Skin: Left leg warm with erythema and slight edema. Slightly tender to touch. Extremities: Right BKA, No digital cyanosis, No clubbing, Pedal pulses intact and symmetrical, Radial pulses intact and symmetrical, No calf tenderness Psychiatric: Alert and oriented to person, place and time, appropriate affect, intact judgement Neuro: Muscles Strength 5/5 in all 4 extremities, Sensation to light touch grossly present throughout, Cranial nerves II-XII grossly intact, no focal sensory deficits - Labs CBC & Chem 7: 05/12/18 19:25 05/12/18 19:25 Labs: Abnormal Lab Results - Last 24 Hours (Table) 05/12/18 05/12/18 05/12/18 Range/Units 19:25 19:25 19:25 WBC 11.6 H (3.8-10.6) k/uL RBC 3.49 L (3.80-5.40) m/uL MCV 104.5 H (80.0-100.0) fL RDW 17.0 H (11.5-15.5) % Monocytes # (Manual) 1.28 H (0-1.0) k/uL Alkaline Phosphatase 183 H (38-126) U/L Total Creatine Kinase <20 L (30-135) U/L Total Protein 5.5 L (6.3-8.2) g/dL Albumin 2.7 L (3.5-5.0) g/dL Assessment and Plan Plan: #Left lower extremity swelling and slight localized erythema over the proximal anterior hennessy rule out cellulitis Switch vancomycin to ancef as there is no hx of MRSA Macrocytosis without anemia Vitamin B12 and RBC folate checked, pending Hypertension currently controlled Resume home medications History of rheumatoid arthritis and Raynaud's Currently stable Continue home medications DVT prophylaxis On Lovenox
[2018-05-13] MEDS: ceFAZolin IN SWFI 2 GM/20 ML SYRINGE IVP SCH ×2 (15:34→23:14)
[2018-05-13] MEDS: SODIUM CHLORIDE 0.9% 1,000 ML IV STA (18:36)
[2018-05-13] MEDS ORDERED: ARIPiprazole 2 MG TAB PO SCH (21:00)
[2018-05-13] MEDS: HYDROcodone/APAP 7.5-325MG 1 EACH TAB PO PRN (21:43)
[2018-05-14] MEDS: METOPROLOL SUCCINATE (ER) 50 MG TAB.ER.24H PO SCH (08:09)
[2018-05-14] MEDS: DULoxetine HCL 30 MG CAPSULE.DR PO SCH (08:09)
[2018-05-14] MEDS: ceFAZolin IN SWFI 2 GM/20 ML SYRINGE IVP SCH (08:09)
[2018-05-14] MEDS: PANTOPRAZOLE 40 MG TABLET PO SCH (08:35)
[2018-05-14] MEDS: DULoxetine HCL 60 MG CAPSULE.DR PO SCH (08:35)
[2018-05-14] MEDS: ENOXAPARIN 40 MG/0.4 ML SYRINGE SQ SCH (08:35)
[2018-05-14] MEDS: GABAPENTIN 300 MG CAP PO SCH (08:35)
[2018-05-14] MEDS: LACOSAMIDE 50 MG TABLET PO SCH (08:41)
[2018-05-14] MEDS: HYDROcodone/APAP 7.5-325MG 1 EACH TAB PO PRN (11:27)
[2018-05-14] MEDS: FOLIC ACID 1 MG TAB PO SCH (11:28)
--- NOTE | 2018-05-14 12:45 | P.DS ---
Providers Date of admission: 05/12/18 20:58 Expected date of discharge: 05/14/18 Attending physician: Isabel Saldana DO [facility] Course: 57-year-old female with history of hypertension, rheumatoid arthritis and alcohol abuse presented to the hospital with concern regarding left lower extremity swelling and redness. Patient was recently discharged from the hospital around 2 weeks ago, was sent to a nursing facility then was released 3 days ago and went home. Since discharge she has noticed progressive swelling as well as redness of her left lower extremity. In addition she saw an area of 5X5 cm of erythema over the proximal anterior tibia, drainage. Did have trauma to the area that caused bruising as well. She denied any fevers or chills, no pain out of the ordinary. Patient has history of right BKA due to a bad infection and she does not want the same fate for her left lower extremity. Otherwise patient denies any chest pain or trouble breathing, no headache, changes in vision or hearing. Evaluation in the emergency department revealed normal vital signs, she had mild leukocytosis of 11.6 thousand. Otherwise the rest of her labs were all within normal limits. She was diagnosed with cellulitis and was admitted to the hospital for IV antibiotics treatment. She was started on vancomycin per pharmacy dosing. The erythema and the swelling in the left lower extremity improved significantly with treatment. Later in the hospitalization she was switched to Ancef and she kept improving on that. She will be discharged home in a stable condition. She will be prescribed Keflex for one week. She was strongly advised to quit smoking. She will follow-up with her primary care physician as soon as possible after discharge. Patient Condition at Discharge: Good Plan - Discharge Summary Discharge Rx Participant: No New Discharge Prescriptions: New Cephalexin [Keflex] 500 mg PO Q6HR 7 Days #28 cap Continue Omeprazole [PriLOSEC] 20 mg PO DAILY Lacosamide [Vimpat] 50 mg PO DAILY Methotrexate Sodium [Methotrexate] 7.5 mg PO TU Folic Acid 1 mg PO DAILY DULoxetine HCL [Cymbalta] 30 mg PO DAILY Alendronate Sodium 70 mg PO TH Ibuprofen [Motrin] 600 mg PO Q6HR PRN PRN Reason: Pain Metoprolol Succinate (ER) [Toprol XL] 50 mg PO DAILY DULoxetine HCL [Cymbalta] 60 mg PO DAILY Potassium Chloride ER [K-Dur 20] 20 meq PO DAILY #30 tab ARIPiprazole [Abilify] 2 mg PO HS Doxycycline Hyclate 100 mg PO BID PRN PRN Reason: DENTAL PROCEDURE Gabapentin [Neurontin] 600 mg PO TID HYDROcodone/APAP 7.5-325MG [Alpha 7.5-325] 1 tab PO BID PRN PRN Reason: Pain Hydroxychloroquine Sulfate [Plaquenil] 200 mg PO DAILY Discharge Medication List Omeprazole [PriLOSEC] 20 mg PO DAILY 02/06/16 [History] Lacosamide [Vimpat] 50 mg PO DAILY 12/19/16 [History] Alendronate Sodium 70 mg PO TH 04/27/18 [History] DULoxetine HCL [Cymbalta] 30 mg PO DAILY 04/27/18 [History] Folic Acid 1 mg PO DAILY 04/27/18 [History] Methotrexate Sodium [Methotrexate] 7.5 mg PO TU 04/27/18 [History] DULoxetine HCL [Cymbalta] 60 mg PO DAILY 04/28/18 [History] Ibuprofen [Motrin] 600 mg PO Q6HR PRN 04/28/18 [History] Metoprolol Succinate (ER) [Toprol XL] 50 mg PO DAILY 04/28/18 [History] Potassium Chloride ER [K-Dur 20] 20 meq PO DAILY #30 tab 05/01/18 [Rx] ARIPiprazole [Abilify] 2 mg PO HS 05/12/18 [History] Doxycycline Hyclate 100 mg PO BID PRN 05/12/18 [History] Gabapentin [Neurontin] 600 mg PO TID 05/12/18 [History] HYDROcodone/APAP 7.5-325MG [Alpha 7.5-325] 1 tab PO BID PRN 05/12/18 [History] Hydroxychloroquine Sulfate [Plaquenil] 200 mg PO DAILY 05/12/18 [History] Cephalexin [Keflex] 500 mg PO Q6HR 7 Days #28 cap 05/14/18 [Rx] Follow up Appointment(s)/Referral(s): Noa Mae MD [Primary Care Provider] - 1-2 days
[2018-05-14 15:49] VITALS: BP 80/45; PULSE 98; RESP 17; TEMP 99.7
[2018-05-14] MEDS ORDERED: DULoxetine HCL 60 MG CAPSULE.DR PO SCH (21:00)
[2018-05-17] MEDS ORDERED: ALENDRONATE SODIUM 70 MG PO SCH (07:00)
== END 2018-05-14 16:25 | disposition home health service (06) | DRG 603 ==
LOC: EC 17:37 → 6PED 20:58 → 4MS4W 05-13 19:36
PROVIDERS: ADMIT Internal Medicine; ATTEND Internal Medicine
DX: L03.116 Cellulitis of left lower limb (principal); D75.89 Other specified diseases of blood and blood-forming organs; F17.200 Nicotine dependence, unspecified, uncomplicated; F32.9 Major depressive disorder, single episode, unspecified; I10 Essential (primary) hypertension; I73.00 Raynaud's syndrome without gangrene; L80 Vitiligo; M06.9 Rheumatoid arthritis, unspecified; Z79.899 Other long term (current) drug therapy; Z82.49 Family history of ischemic heart disease and other diseases of the circulatory system; Z83.3 Family history of diabetes mellitus; Z89.511 Acquired absence of right leg below knee; Z96.611 Presence of right artificial shoulder joint; Z71.6 Tobacco abuse counseling; F10.10 Alcohol abuse, uncomplicated; Z86.14 Personal history of Methicillin resistant Staphylococcus aureus infection
CPT/HCPCS: 36415; 80053; 82550; 82553; 82607; 82747; 83605; 83735; 84100; 84484; 85025; 85610; 85730; 87040; 96365; 99285

== ENCOUNTER 2018-05-17 14:33 | Inpatient (IN) | payer OTHER ==
[2018-05-17] MEDS ORDERED: VANCOMYCIN IV PER PHARMACY 1 EACH MISC MISCELLANE PRN (17:08)
[2018-05-17 17:30] LABS: Anisocytosis Slight; Basophils % (A) 0 %; Eosinophils # (A) 0.4 k/uL (0-0.7); Eosinophils % (A) 4 %; HCT 35.1 % (34.0-46.0); Lymphocytes % (A) 29 %; MCH 33.1 pg (25.0-35.0); MCHC 31.3 g/dL (31.0-37.0); MCV 105.7 fL (80.0-100.0); Macrocytosis Moderate; Mean Platelet Volume 10.4; Monocytes # (A) 0.4 k/uL (0-1.0); Monocytes % (A) 4 %; Neutrophils # (A) 6.3 k/uL (1.3-7.7); Neutrophils % (A) 60 %; RBC 3.32 m/uL (3.80-5.40); RDW 17.6 % (11.5-15.5); WBC 10.5 k/uL (3.8-10.6)
[2018-05-17] MEDS ORDERED: VANCOMYCIN 1,250 MG in SODIUM CHLORIDE 0.9% 250 ML IVPB ONE (17:30)
[2018-05-17 17:39] LABS: Prothrombin Time 9.8 sec (9.0-12.0)
[2018-05-17 17:40] LABS: ALT 29 U/L (9-52); AST 18 U/L (14-36); Albumin 2.2 g/dL (3.5-5.0); Alkaline Phosphatase 179 U/L (38-126); Anion Gap 8 mmol/L; Blood Urea Nitrogen 9 mg/dL (7-17); Calcium 8.4 mg/dL (8.4-10.2); Carbon Dioxide 23 mmol/L (22-30); Chloride 110 mmol/L (98-107); Glucose 76 mg/dL (74-99); Potassium 3.3 mmol/L (3.5-5.1); Sodium 141 mmol/L (137-145); Total Bilirubin 0.2 mg/dL (0.2-1.3); Total Protein 4.9 g/dL (6.3-8.2)
[2018-05-17 18:02] LABS: Appearance,Urine Clear (Clear); Bilirubin,Urine Negative (Negative); Blood,Urine Negative (Negative); Color,Urine Light Yellow; Glucose,Urine (UA) Negative (Negative); Ketones,Urine Negative (Negative); Leukocyte Esterase,Urine Negative (Negative); Nitrite,Urine Negative (Negative); PH, Urine 7.5 (5.0-8.0); Protein,Urine Negative (Negative); Specific Gravity,Urine 1.005 (1.001-1.035); Urobilinogen,Urine <2.0 mg/dL (<2.0)
[2018-05-17] MEDS: SODIUM CHLORIDE 0.9% 500 ML IV SCH (18:11)
[2018-05-17] MEDS ORDERED: MORPHINE SULFATE 2 MG/ML SYRINGE IVP PRN (18:35)
--- NOTE | 2018-05-17 19:15 | US ---
EXAMINATION TYPE: US venous doppler duplex LE LT DATE OF EXAM: 05/17/2018 7:06 PM COMPARISON: NONE CLINICAL HISTORY: Pain. Pain and edema. SIDE PERFORMED: Left TECHNIQUE: The lower extremity deep venous system is examined utilizing real time linear array sonog lisandra with graded compression, doppler sonography and color-flow sonography. VESSELS IMAGED: External Iliac Vein (EIV) Common Femoral Vein Deep Femoral Vein Greater Saphenous Vein * Femoral Vein Popliteal Vein Small Saphenous Vein * Proximal Calf Veins (* superficial vessels Left Leg: Negative for DVT No evidence of DVT left leg. IMPRESSION: No evidence of deep venous thrombosis in the left leg.
--- NOTE | 2018-05-17 19:32 | XR ---
EXAMINATION TYPE: XR chest 2V DATE OF EXAM: 05/17/2018 COMPARISON: 12/30/2017 HISTORY: Generalized swelling TECHNIQUE: Frontal and lateral views of the chest are obtained. FINDINGS: There is no heart failure nor confluent pneumonic infiltrate. There are apparent old bilat eral healed rib fractures. There is right shoulder prosthesis. Costophrenic angles are clear. There i s osteopenia. IMPRESSION: No active cardiopulmonary disease. Mild pulmonary fibrosis. No change.
--- NOTE | 2018-05-17 19:54 | ED ---
General Adult HPI - General Chief complaint: Recheck/Abnormal Lab/Rx Stated complaint: Swelling all over body Source: patient Mode of arrival: wheelchair Limitations: no limitations - History of Present Illness Initial comments: Dictation was produced using [employer] dictation software. please excuse any grammatical, word or spelling errors. Chief Complaint: 57-year-old female past medical history of peripheral vascular disease, rheumatoid arthritis, EtOH abuse presents with persistent lower extremity pain bilaterally. History of Present Illness: 57-year-old female was recently admitted for cellulitis. This is her third visit for the same complaint. Patient states she was discharged recently for cellulitic changes in her lower extremity. She is discharged with Keflex. Chart review shows that patient was admitted for cellulitis. She presents with worsening pain of the bilateral lower extremities. Patient has been taking Keflex as prescribed however continued to have worsening symptoms. Family who presents with patient report that there is findings of blistering to her left lower extremity about the tibial area. Patient denies any constitutional symptoms. Past Medical History: Potential, osteoporosis, rheumatoid arthritis and neuropathy, Raynaud's, peripheral vascular disease Past Surgical History: Appendectomy, , joint replacement, right lower extremity amputation Social History: Current every day smoker Family History: reviewed and noncontributory The ROS documented in this emergency department record has been reviewed and confirmed by me. Those systems with pertinent positive or negative responses have been documented in the HPI. All other systems are other negative and/or noncontributory. - Related Data Home Medications Medication Instructions Recorded Confirmed Omeprazole [PriLOSEC] 20 mg PO DAILY 02/06/16 05/17/18 Lacosamide [Vimpat] 50 mg PO DAILY 12/19/16 05/17/18 Alendronate Sodium 70 mg PO TH 04/27/18 05/17/18 DULoxetine HCL [Cymbalta] 30 mg PO DAILY 04/27/18 05/17/18 Folic Acid 1 mg PO DAILY 04/27/18 05/17/18 Methotrexate Sodium [Methotrexate] 7.5 mg PO TU 04/27/18 05/17/18 DULoxetine HCL [Cymbalta] 60 mg PO DAILY 04/28/18 05/17/18 Ibuprofen [Motrin] 600 mg PO Q6HR PRN 04/28/18 05/17/18 Metoprolol Succinate (ER) [Toprol 50 mg PO DAILY 04/28/18 05/17/18 XL] ARIPiprazole [Abilify] 2 mg PO HS 05/12/18 05/17/18 Gabapentin [Neurontin] 600 mg PO TID 05/12/18 05/17/18 HYDROcodone/APAP 7.5-325MG [[place] 1 tab PO BID PRN 05/12/18 05/17/18 7.5-325] Hydroxychloroquine Sulfate 200 mg PO DAILY 05/12/18 05/17/18 [Plaquenil] Previous Rx's Medication Instructions Recorded Potassium Chloride ER [K-Dur 20] 20 meq PO DAILY #30 tab 05/01/18 Collagenase [Santyl] 1 applic TOPICAL DAILY applic 05/20/18 Doxycycline [Vibramycin] 100 mg PO Q12HR #14 capsule 05/20/18 Allergies Allergy/AdvReac Type Severity Reaction Status Date / Time No Known Allergies Allergy Verified 05/17/18 16:19 Review of Systems ROS Statement: Those systems with pertinent positive or pertinent negative responses have been documented in the HPI. ROS Other: All systems not noted in ROS Statement are negative. Past Medical History Past Medical History: Hypertension, Osteoarthritis (OA), Rheumatoid Arthritis ( RA) Additional Past Medical History / Comment(s): neuropathy Vitiligo, Raynaud's peripheral neuropathy. History of Any Multi-Drug Resistant Organisms: MRSA Date of last positivie culture/infection: 06/11/12 MDRO Source:: Unknown Past Surgical History: Appendectomy, Section, Joint Replacement, Orthopedic Surgery, Tonsillectomy, Tubal Ligation Additional Past Surgical History / Comment(s): right shoulder replacement, right leg amputation Past Anesthesia/Blood Transfusion Reactions: No Reported Reaction Past Psychological History: Depression Smoking Status: Current every day smoker Past Alcohol Use History: Daily Past Drug Use History: None Reported - Past Family History Mother Family Medical History: No Reported History, Diabetes Mellitus, Hyperlipidemia, Hypertension Father Family Medical History: Diabetes Mellitus, Hypertension Sister(s) Family Medical History: No Reported History Son(s) Family Medical History: No Reported History General Exam - General Exam Comments Initial Comments: Vitals: Vital signs upon arrival shows tachycardia 104, rest of vital signs within normal limits. PHYSICAL EXAM: General Impression: Alert and oriented x3, not in acute distress HEENT: Normocephalic atraumatic, extra-ocular movements intact, pupils equal and reactive to light bilaterally, mucous membranes moist. Cardiovascular: Heart regular rate and rhythm, S1&S2 audible, no murmurs, rubs or gallops Chest: Lungs clear to auscultation bilaterally, no rhonchi, no wheeze, no rales Abdomen: Bowel sounds present, abdomen soft, non-tender, non-distended, no organomegaly Musculoskeletal: Right lower extremity amputation Motor: Power 5/5 bilaterally, no focal deficits noted Neurological: CN II-XII grossly intact, no focal motor or sensory deficits noted Skin: Wounds to the distal right lower extremity stump with healing ulcer that is tender to palpation. Right lower extremity shows diffuse redness and blistering of the lower tibial area. There is persistent redness and warmth to that area. Psych: Normal affect and mood Limitations: no limitations Course Vital Signs 05/17/18 05/17/18 05/17/18 14:49 18:17 19:07 Temperature 98.3 F Pulse Rate 104 H 87 98 Pulse Rate [ Pulse Oximetery ] Respiratory 20 18 18 Rate Blood Pressure 102/66 128/79 123/71 Blood Pressure [Left Arm] O2 Sat by Pulse 97 100 99 Oximetry 05/17/18 05/17/18 05/17/18 20:05 21:05 22:35 Temperature 97.8 F 97.2 F L 97.9 F Pulse Rate 96 Pulse Rate [ 95 95 Pulse Oximetery ] Respiratory 18 16 16 Rate Blood Pressure 100/66 Blood Pressure 109/72 101/57 [Left Arm] O2 Sat by Pulse 98 100 98 Oximetry Medical Decision Making - Medical Decision Making ED course: 57-year-old female with past medical history per peripheral vascular disease and recent cellulitis presents with persistent symptoms after discharge. Patient was discharged from the hospital recently with Keflex outpatient. Patient clinical presentation consistent with cellulitis failed outpatient treatment. Vital signs upon arrival are within normal limits. Laboratory evaluation obtained. CBC is unremarkable. Hemoglobin is at around baseline. No leukocytosis. Coag panel is unremarkable. Within acceptable limits. Urinalysis is negative. No clinical suspicion of necrotizing infection of the lower extremity given that patient has normal vital signs, no findings of pain out of proportion and stable labs. Discussed patient case with hospitalist who is willing to accept the admission. Patient received vancomycin and intravenous fluids. Blood culture was sent. Pending urine culture and for calcitonin. Patient is understandable and agreeable to disposition. - Lab Data Result diagrams: 05/18/18 06:59 05/20/18 06:40 Lab Results 05/17/18 05/17/18 05/17/18 Range/Units 16:21 16:31 16:31 WBC 10.5 (3.8-10.6) k/uL RBC 3.32 L (3.80-5.40) m/uL Hgb 11.0 L (11.4-16.0) gm/dL Hct 35.1 (34.0-46.0) % MCV 105.7 H (80.0-100.0) fL MCH 33.1 (25.0-35.0) pg MCHC 31.3 (31.0-37.0) g/dL RDW 17.6 H (11.5-15.5) % Plt Count (150-450) k/uL Neutrophils % 60 % Lymphocytes % 29 % Monocytes % 4 % Eosinophils % 4 % Basophils % 0 % Neutrophils # 6.3 (1.3-7.7) k/uL Lymphocytes # 3.0 (1.0-4.8) k/uL Monocytes # 0.4 (0-1.0) k/uL Eosinophils # 0.4 (0-0.7) k/uL Basophils # 0.0 (0-0.2) k/uL Manual Slide Review Performed Anisocytosis Slight Macrocytosis Moderate PT (9.0-12.0) sec INR (<1.2) APTT (22.0-30.0) sec Sodium 141 (137-145) mmol/L Potassium 3.3 L (3.5-5.1) mmol/L Chloride 110 H (98-107) mmol/L Carbon Dioxide 23 (22-30) mmol/L Anion Gap 8 mmol/L BUN 9 (7-17) mg/dL Creatinine 0.50 L (0.52-1.04) mg/dL Est GFR (CKD-EPI)AfAm >90 (>60 ml/min/1.73 sqM) Est GFR (CKD-EPI)NonAf >90 (>60 ml/min/1.73 sqM) Glucose 76 (74-99) mg/dL Plasma Lactic Acid Al (0.7-2.0) mmol/L Calcium 8.4 (8.4-10.2) mg/dL Total Bilirubin 0.2 (0.2-1.3) mg/dL AST 18 (14-36) U/L ALT 29 (9-52) U/L Alkaline Phosphatase 179 H (38-126) U/L Total Protein 4.9 L (6.3-8.2) g/dL Albumin 2.2 L (3.5-5.0) g/dL Procalcitonin 0.08 (0.02-0.09) ng/mL Urine Color Urine Appearance (Clear) Urine pH (5.0-8.0) Ur Specific [place] (1.001-1.035) Urine Protein (Negative) Urine Glucose (UA) (Negative) Urine Ketones (Negative) Urine Blood (Negative) Urine Nitrite (Negative) Urine Bilirubin (Negative) Urine Urobilinogen (<2.0) mg/dL Ur Leukocyte Esterase (Negative) 05/17/18 05/17/18 05/17/18 Range/Units 16:31 16:31 17:52 WBC (3.8-10.6) k/uL RBC (3.80-5.40) m/uL Hgb (11.4-16.0) gm/dL Hct (34.0-46.0) % MCV (80.0-100.0) fL MCH (25.0-35.0) pg MCHC (31.0-37.0) g/dL RDW (11.5-15.5) % Plt Count (150-450) k/uL Neutrophils % % Lymphocytes % % Monocytes % % Eosinophils % % Basophils % % Neutrophils # (1.3-7.7) k/uL Lymphocytes # (1.0-4.8) k/uL Monocytes # (0-1.0) k/uL Eosinophils # (0-0.7) k/uL Basophils # (0-0.2) k/uL Manual Slide Review Anisocytosis Macrocytosis PT 9.8 (9.0-12.0) sec INR 1.0 (<1.2) APTT 24.0 (22.0-30.0) sec Sodium (137-145) mmol/L Potassium (3.5-5.1) mmol/L Chloride (98-107) mmol/L Carbon Dioxide (22-30) mmol/L Anion Gap mmol/L BUN (7-17) mg/dL Creatinine (0.52-1.04) mg/dL Est GFR (CKD-EPI)AfAm (>60 ml/min/1.73 sqM) Est GFR (CKD-EPI)NonAf (>60 ml/min/1.73 sqM) Glucose (74-99) mg/dL Plasma Lactic Acid Al 1.0 (0.7-2.0) mmol/L Calcium (8.4-10.2) mg/dL Total Bilirubin (0.2-1.3) mg/dL AST (14-36) U/L ALT (9-52) U/L Alkaline Phosphatase (38-126) U/L Total Protein (6.3-8.2) g/dL Albumin (3.5-5.0) g/dL Procalcitonin (0.02-0.09) ng/mL Urine Color Light Yellow Urine Appearance Clear (Clear) Urine pH 7.5 (5.0-8.0) Ur Specific [place] 1.005 (1.001-1.035) Urine Protein Negative (Negative) Urine Glucose (UA) Negative (Negative) Urine Ketones Negative (Negative) Urine Blood Negative (Negative) Urine Nitrite Negative (Negative) Urine Bilirubin Negative (Negative) Urine Urobilinogen <2.0 (<2.0) mg/dL Ur Leukocyte Esterase Negative (Negative) Disposition Clinical Impression: Cellulitis Disposition: ADMITTED IP TO THIS HOSP Condition: Fair Time of Disposition: 19:56
[2018-05-17] MEDS ORDERED: NALOXONE 0.4 MG/ML 1 ML VIAL IV PRN (19:57)
[2018-05-17] MEDS: HEPARIN SODIUM,PORCINE 5,000 UNIT/ML 1 ML VIAL SQ SCH (23:12)
--- NOTE | 2018-05-17 23:55 | P.HPIM ---
History of Present Illness H&P Date: 05/17/18 Chief Complaint: left leg swelling and reddness 57-year-old female with past medical history of high blood pressure, alcohol abuse, and rheumatoid arthritis. Patient comes back to the hospital 3 days after discharge with similar complaints of redness and swelling over her left lower extremity this time was also associated with some blistering. She is concerned that this is a recurrent infection and worried that she might lose her leg. Her history goes back to around 3 weeks ago after she was discharged from the hospital and went to a penitentiary for 2 weeks then as was discharged and stayed at home for 3 days and presented to our hospital with a complaint of left leg redness concerning for infections she was treated with IV antibiotics in the hospital and discharged on Keflex and now presenting back due to worsening swelling and pain in her left lower extremity along with blistering. She is also reporting some diffuse generalized body aches otherwise denies any fevers or chills denies any shortness of breath or trouble breathing or any chest pain denies any traumas to her left lower extremity she denies any abdominal pain or changes in her bowel or urinary habits. In the emergency department venous duplex ultrasound of the left lower extremity was performed and was negative for any acute DVT at this time. Patient was admitted for failure of outpatient antibiotic therapy to receive IV antibiotics. Review of Systems Pertinent positives as noted in HPI. All other systems were reviewed and are negative Past Medical History Past Medical History: Hypertension, Osteoarthritis (OA), Rheumatoid Arthritis ( RA) Additional Past Medical History / Comment(s): neuropathy Vitiligo, Raynaud's peripheral neuropathy. History of Any Multi-Drug Resistant Organisms: MRSA Date of last positivie culture/infection: 06/11/12 MDRO Source:: Unknown Past Surgical History: Appendectomy, Section, Joint Replacement, Orthopedic Surgery, Tonsillectomy, Tubal Ligation Additional Past Surgical History / Comment(s): right shoulder replacement, right leg amputation Past Anesthesia/Blood Transfusion Reactions: No Reported Reaction Past Psychological History: Depression Smoking Status: Current every day smoker Past Alcohol Use History: Daily Past Drug Use History: None Reported - Past Family History Mother Family Medical History: No Reported History, Diabetes Mellitus, Hyperlipidemia, Hypertension Father Family Medical History: Diabetes Mellitus, Hypertension Sister(s) Family Medical History: No Reported History Son(s) Family Medical History: No Reported History Medications and Allergies Home Medications Medication Instructions Recorded Confirmed Type Omeprazole [PriLOSEC] 20 mg PO DAILY 02/06/16 05/17/18 History Lacosamide [Vimpat] 50 mg PO DAILY 12/19/16 05/17/18 History Alendronate Sodium 70 mg PO TH 04/27/18 05/17/18 History DULoxetine HCL [Cymbalta] 30 mg PO DAILY 04/27/18 05/17/18 History Folic Acid 1 mg PO DAILY 04/27/18 05/17/18 History Methotrexate Sodium [Methotrexate] 7.5 mg PO TU 04/27/18 05/17/18 History DULoxetine HCL [Cymbalta] 60 mg PO DAILY 04/28/18 05/17/18 History Ibuprofen [Motrin] 600 mg PO Q6HR PRN 04/28/18 05/17/18 History Metoprolol Succinate (ER) [Toprol 50 mg PO DAILY 04/28/18 05/17/18 History XL] Potassium Chloride ER [K-Dur 20] 20 meq PO DAILY #30 tab 05/01/18 05/17/18 Rx ARIPiprazole [Abilify] 2 mg PO HS 05/12/18 05/17/18 History Gabapentin [Neurontin] 600 mg PO TID 05/12/18 05/17/18 History HYDROcodone/APAP 7.5-325MG [[place] 1 tab PO BID PRN 05/12/18 05/17/18 History 7.5-325] Hydroxychloroquine Sulfate 200 mg PO DAILY 05/12/18 05/17/18 History [Plaquenil] Cephalexin [Keflex] 500 mg PO Q6HR 7 Days #28 cap 05/14/18 05/17/18 Rx Allergies Allergy/AdvReac Type Severity Reaction Status Date / Time No Known Allergies Allergy Verified 05/17/18 16:19 Physical Exam Vitals: Vital Signs Temp Pulse Resp BP Pulse Ox 05/17/18 20:05 97.8 F 96 18 100/66 98 05/17/18 19:07 98 18 123/71 99 05/17/18 18:17 87 18 128/79 100 05/17/18 14:49 98.3 F 104 H 20 102/66 97 Intake and Output 05/17/18 05/17/18 05/17/18 06:59 14:59 22:59 Other: Weight 61.689 kg Constitutional: No acute distress, conversant, pleasant Eyes: Anicteric sclerae, moist conjunctiva, no lid-lag Pupils equal round reactive to light ENMT: NC/AT Oropharynx clear, no erythema, or exudates Neck: Supple, FROM, no masses, or JVD No carotid bruits No thyromegaly Lungs: Clear to auscultation Clear to percussion Normal respiratory effort, no accessory muscle use Cardiovascular: Heart regular in rate and rhythm, No murmurs, gallops, or rubs Left lower extremity with +1 edema Abdominal: Soft Nontender, no guarding, rebound or rigidity Abdomen moving with respiration Normoactive bowel sounds No hepatomegaly, No splenomegaly No palpable mass No abdominal wall hernia noted Skin: Patient has small lesion over the medial aspect of the right BKA stump, she has small lesion 1 x 1 cm over the upper third of the left leg over the hennessy with some surrounding erythema. Blistering over the anterior aspect of the left mid third of the tibia Normal temperature, tone, texture, turgor No induration No subcutaneous nodules There is some hypopigmentation over bilateral hands No ulcers Extremities: Soft fullness in bilateral anti-cubital fossa Right BKA No digital cyanosis No clubbing Pedal positive on left foot Radial pulses intact and symmetrical No calf tenderness Psychiatric: Alert and oriented to person, place and time Appropriate affect fair judgment Neuro Muscles Strength 5/5 in all 4 extremities (right BKA) Sensation to light touch grossly present throughout Cranial nerves II-XII grossly intact No focal sensory deficits Lymphatics: no palpable cervical or supraclavicular , or inguinal lymph nodes Results CBC & Chem 7: 05/17/18 16:31 05/17/18 16:31 Labs: Abnormal Lab Results - Last 24 Hours (Table) 05/17/18 05/17/18 Range/Units 16:31 16:31 RBC 3.32 L (3.80-5.40) m/uL Hgb 11.0 L (11.4-16.0) gm/dL MCV 105.7 H (80.0-100.0) fL RDW 17.6 H (11.5-15.5) % Potassium 3.3 L (3.5-5.1) mmol/L Chloride 110 H (98-107) mmol/L Creatinine 0.50 L (0.52-1.04) mg/dL Alkaline Phosphatase 179 H (38-126) U/L Total Protein 4.9 L (6.3-8.2) g/dL Albumin 2.2 L (3.5-5.0) g/dL Assessment and Plan Assessment: 57-year-old female with history of rheumatoid arthritis admitted to the hospital with expected length of stay of more than 2 days due to cellulitis of left lower extremity failed outpatient therapy with by mouth antibiotics. Patient was admitted and started on IV antibiotics with vancomycin and consult to ID was placed Plan: Left lower extremity cellulitis failed outpatient antibiotic therapy by mouth Patient started on vancomycin Follow-up cultures No leukocytosis ID consult Hypertension currently controlled Continue home medications History of fibromyalgia Continue home medications History of rheumatoid arthritis Hold cytotoxic meds due to cellulitis of left lower extremity DVT prophylaxis on heparin subcu 3 times a day Preformed a thorough record review from recent hospitalization patient was hospitalized 3 weeks ago and treated for alcohol abuse, 2-D echocardiogram at that time showed left ventricular ejection fraction of 55-60%. Patient then was readmitted 5 days ago due to left lower extremity cellulitis was discharged with by mouth antibiotics. Surrogate decision-maker: Patient CODE STATUS: Full code Discussed with: Patient, ER, RN Anticipated discharge: 48-[address]: Home A total of *55 minutes was spent on the care of this complex patient more than 50% of the time was spent in counseling and care coordination.
[2018-05-18] MEDS ORDERED: VANCOMYCIN 1,250 MG in SODIUM CHLORIDE 0.9% 250 ML IVPB SCH (06:00)
[2018-05-18] MEDS: HEPARIN SODIUM,PORCINE 5,000 UNIT/ML 1 ML VIAL SQ SCH ×2 (07:48→15:54)
[2018-05-18] MEDS: FOLIC ACID 1 MG TAB PO SCH (07:49)
[2018-05-18] MEDS: DULoxetine HCL 60 MG CAPSULE.DR PO SCH (07:49)
[2018-05-18] MEDS: GABAPENTIN 300 MG CAP PO SCH ×3 (07:49→21:04)
[2018-05-18] MEDS: PANTOPRAZOLE 40 MG TABLET PO SCH (07:49)
[2018-05-18] MEDS: DULoxetine HCL 30 MG CAPSULE.DR PO SCH (07:49)
[2018-05-18] MEDS: METOPROLOL SUCCINATE (ER) 50 MG TAB.ER.24H PO SCH (07:49)
[2018-05-18] MEDS: POTASSIUM CHLORIDE ER 20 MEQ TAB.ER PO SCH ×3 (07:50→12:02)
[2018-05-18] MEDS: LACOSAMIDE 50 MG TABLET PO SCH (07:54)
[2018-05-18 08:16] LABS: Anisocytosis Slight; Basophils % (A) 1 %; Eosinophils # (A) 0.3 k/uL (0-0.7); Eosinophils % (A) 5 %; HCT 32.3 % (34.0-46.0); Hypochromasia Slight; Lymphocytes # (A) 2.2 k/uL (1.0-4.8); Lymphocytes % (A) 39 %; MCH 33.2 pg (25.0-35.0); MCV 107.2 fL (80.0-100.0); Macrocytosis Marked; Mean Platelet Volume 9.1; Monocytes # (A) 0.3 k/uL (0-1.0); Monocytes % (A) 5 %; Neutrophils # (A) 2.8 k/uL (1.3-7.7); Neutrophils % (A) 49 %; Platelet Count 196 k/uL (150-450); RBC 3.01 m/uL (3.80-5.40); RDW 17.6 % (11.5-15.5); WBC 5.7 k/uL (3.8-10.6)
[2018-05-18 08:25] LABS: ALT 22 U/L (9-52); AST 13 U/L (14-36); Albumin 1.8 g/dL (3.5-5.0); Alkaline Phosphatase 162 U/L (38-126); Anion Gap 6 mmol/L; Blood Urea Nitrogen 8 mg/dL (7-17); Calcium 7.8 mg/dL (8.4-10.2); Carbon Dioxide 24 mmol/L (22-30); Chloride 114 mmol/L (98-107); Glucose 79 mg/dL (74-99); Potassium 3.3 mmol/L (3.5-5.1); Sodium 144 mmol/L (137-145); Total Bilirubin 0.2 mg/dL (0.2-1.3); Total Protein 4.2 g/dL (6.3-8.2)
[2018-05-18] MEDS ORDERED: Potassium Replacement Protocol 1 EACH MISC MISCELLANE PRN (10:49)
[2018-05-18] MEDS: HYDROcodone/APAP 7.5-325MG 1 EACH TAB PO PRN (12:05)
--- NOTE | 2018-05-18 13:17 | P.PN ---
Subjective Patient reports that the redness and swelling is significantly improved since being admitted last night, patient afebrile mild leukocytosis. No acute events overnight Objective - Vital Signs Vital signs: Vital Signs Temp 97.7 F 05/18/18 05:50 Pulse 87 05/18/18 05:50 Resp 16 05/18/18 08:00 BP 109/69 05/18/18 05:50 Pulse Ox 97 05/18/18 05:50 Intake & Output 05/17/18 05/18/18 05/18/18 18:59 06:59 18:59 Intake Total 150 Balance 150 Weight 61.689 kg Intake: Oral 150 Other: Voiding Method Bedpan # Voids 2 - Exam Constitutional: No acute distress, conversant, pleasant Eyes: Anicteric sclerae, moist conjunctiva, no lid-lag, PERRLA ENMT: NC/AT,Oropharynx clear, no erythema, exudates Neck:Supple, FROM, no masses, or JVD, No carotid bruits; No thyromegaly Lungs: Clear to auscultation, Clear to percussion, Normal respiratory effort, no accessory muscle use Cardiovascular: Heart regular in rate and rhythm, No murmurs, gallops, or rubs no peripheral edema Abdominal: Soft Nontender, nom distended, no guarding, no rebound or rigidity, Normoactive bowel sounds No hepatomegaly, No splenomegaly, No palpable mass No abdominal wall hernia noted Skin: patient has small lesion over the medial aspect of the right BKA stump, she has small lesion 1 x 1 cm over the upper third of the left leg over the hennessy with some surrounding erythema. Blistering over the anterior aspect of the left mid third of the tibia Extremities:No digital cyanosis No clubbing, Pedal pulses intact and symmetrical Radial pulses intact and symmetrical Normal gait and station, No calf tenderness, right BKA Psychiatric: Alert and oriented to person, place and time, Appropriate affect Intact judgement Neuro: Muscles Strength 5/5 in all 4 extremities, Sensation to light touch grossly present throughout, Cranial nerves II-XII grossly intact. No focal sensory deficits - Labs CBC & Chem 7: 05/18/18 06:59 05/18/18 06:59 Labs: Abnormal Lab Results - Last 24 Hours (Table) 05/17/18 05/17/18 05/18/18 Range/Units 16:31 16:31 06:59 RBC 3.32 L 3.01 L (3.80-5.40) m/uL Hgb 11.0 L 10.0 L (11.4-16.0) gm/dL Hct 32.3 L (34.0-46.0) % MCV 105.7 H 107.2 H (80.0-100.0) fL RDW 17.6 H 17.6 H (11.5-15.5) % Potassium 3.3 L (3.5-5.1) mmol/L Chloride 110 H (98-107) mmol/L Creatinine 0.50 L (0.52-1.04) mg/dL Calcium (8.4-10.2) mg/dL AST (14-36) U/L Alkaline Phosphatase 179 H (38-126) U/L Total Protein 4.9 L (6.3-8.2) g/dL Albumin 2.2 L (3.5-5.0) g/dL 05/18/18 Range/Units 06:59 RBC (3.80-5.40) m/uL Hgb (11.4-16.0) gm/dL Hct (34.0-46.0) % MCV (80.0-100.0) fL RDW (11.5-15.5) % Potassium 3.3 L (3.5-5.1) mmol/L Chloride 114 H (98-107) mmol/L Creatinine 0.46 L (0.52-1.04) mg/dL Calcium 7.8 L (8.4-10.2) mg/dL AST 13 L (14-36) U/L Alkaline Phosphatase 162 H (38-126) U/L Total Protein 4.2 L (6.3-8.2) g/dL Albumin 1.8 L (3.5-5.0) g/dL Microbiology - Last 24 Hours (Table) 05/17/18 17:52 Urine Culture - Preliminary Urine,Voided Assessment and Plan Plan: Left lower extremity cellulitis failed outpatient antibiotic therapy by mouth Patient started on vancomycin but can likely be transitioned to Bactrim, ideas been consulted waiting on further recommendations Follow-up cultures No leukocytosis ID consult Hypertension currently controlled Continue home medications History of fibromyalgia Continue home medications Anticipate discharge in 1-2 days
[2018-05-18] MEDS: VANCOMYCIN 1,250 MG in SODIUM CHLORIDE 0.9% 250 ML IVPB SCH ×2 (14:19→21:04)
[2018-05-18] MEDS: COLLAGENASE 250 UNIT/GM OINTMENT 30 GM TUBE TOPICAL SCH (18:46)
[2018-05-18] MEDS: ARIPiprazole 2 MG TAB PO SCH (21:04)
[2018-05-18] MEDS: POLYETHYLENE GLYCOL 3350 17 GM POWD.PACK PO SCH (21:44)
[2018-05-19] MEDS: HEPARIN SODIUM,PORCINE 5,000 UNIT/ML 1 ML VIAL SQ SCH ×4 (00:25→23:07)
--- NOTE | 2018-05-19 01:54 | CONS ---
CONSULTATION DATE OF SERVICE: 05/18/2018. REASON FOR CONSULTATION: Lower extremity cellulitis and right BKA stump wound. HISTORY OF PRESENT ILLNESS: The patient is a 57-year-old female with past medical history significant for peripheral vascular disease and rheumatoid arthritis. The patient is status post right [id number] amputation for peripheral arterial disease. The patient was recently admitted to this facility and was treated with left lower extremity cellulitis and was discharged home on the oral Keflex. Now the patient presenting back with worsening pain of the bilateral lower extremities. She was having more swelling and of the left lower extremity. Pain described more of a dull aching pain, 5 to 6/10 and no radiation. The patient denies any high-grade fever, rigors or chills. Subsequently she has been evaluated by the ER physician. The patient did have lower extremity Doppler was negative for DVT. White count was normal. The patient did not have any fever. She was started on vancomycin and admitted to the hospital and infectious disease was consulted for further recommendation of antibiotic therapy. REVIEW OF SYSTEMS: CONSTITUTIONAL: Positive for weakness. No high-grade fever. Eyes no complaint. ENT no complaint. Respiratory no complaint. Cardiovascular no complaint. Genitourinary no complaint. Gastrointestinal: No complaint. Musculoskeletal as per HPI. Integumentary as per HPI. PSYCHOLOGICAL: No complaint. ENDOCRINE: No complaint. Neurologic no complaint. PAST MEDICAL HISTORY: Significant for rheumatoid arthritis, neuropathy, Raynaud's phenomenon, peripheral vascular disease, osteoporosis and lower extremity cellulitis. PAST SURGICAL HISTORY: Right [id number] amputation, , appendectomy. SOCIAL HISTORY: The patient is currently an everyday smoker. Denies drinking or drug use. FAMILY HISTORY: . ALLERGIES: No known drug allergies. MEDICATIONS: Include the patient is currently on , Protonix, Narcan, vancomycin pharmacy to dose, , heparin, Neurontin, folic acid, Cymbalta, Abilify and [place]. EXAMINATION: Blood pressure is 103/68 with a pulse of 92, temperature 98.1. She is 97% on room air. General description is a middle-aged female lying in bed in no distress. No tachypnea or accessory muscle of respiration use. HEENT: Shows pallor. No scleral icterus. Oral mucosa membranes dry. No pharyngeal erythema or thrush. Neck trachea central. No thyromegaly. Lungs unlabored breathing. Clear to auscultation anteriorly. No wheeze or crackles. Heart S1, S2. Regular rate and rhythm. ABDOMEN: Soft. No tenderness. No guarding or rigidity. Extremities: Left leg with superficial minimal slough tissue and some swelling. No definitive was noticed. on the right BKA the patient did have a wound with slough tissue erythema and foul-smelling drainage. Neurological: Patient is awake, alert, oriented times three. Mood and affect normal. LABS: Hemoglobin is 12, white count 5.7, BUN of 8, creatinine 0.46, potassium 3.6. UA has been negative. Blood cultures currently pending. Lower extremity Doppler and ultrasound was negative for DVT. DIAGNOSTIC IMPRESSION/PLAN: 1. Patient admitted to hospital with left lower extremity cellulitis failing outpatient oral Keflex therapy. However at the time of evaluation, significant improved. the patient will be started on IV vancomycin question of possible MRSA. 2. Patient with superficial wound to the right BK stump in the left leg from a fall with soft tissue surrounding redness. PLAN: 1. We will keep the patient on vancomycin pharmacy to dose, target of 15 for another 24 hours the patient did improve may be able to transition to oral antibiotics. 2. We will apply Santyl to the wound to the BKA as well as left leg will be moist dressing. 3. We will follow up on clinical condition and culture to further adjust medication if needed. Thank you for this consultation. We will follow this patient along with you. MMODL / IJN: [id number] /
[2018-05-19] MEDS ORDERED: VANCOMYCIN TROUGH DUE 1 EACH MISC MISCELLANE ONE (05:00)
[2018-05-19] MEDS: VANCOMYCIN 1,250 MG in SODIUM CHLORIDE 0.9% 250 ML IVPB SCH ×2 (05:36→21:11)
[2018-05-19] MEDS ORDERED: VANCOMYCIN IV PER PHARMACY 1 EACH MISC MISCELLANE PRN (06:54)
[2018-05-19] MEDS: PANTOPRAZOLE 40 MG TABLET PO SCH (08:51)
[2018-05-19] MEDS: METOPROLOL SUCCINATE (ER) 50 MG TAB.ER.24H PO SCH (08:51)
[2018-05-19] MEDS: GABAPENTIN 300 MG CAP PO SCH ×3 (08:51→20:55)
[2018-05-19] MEDS: LACOSAMIDE 50 MG TABLET PO SCH (08:52)
[2018-05-19] MEDS: FOLIC ACID 1 MG TAB PO SCH (08:52)
[2018-05-19] MEDS: DULoxetine HCL 30 MG CAPSULE.DR PO SCH (08:52)
[2018-05-19] MEDS: POTASSIUM CHLORIDE ER 20 MEQ TAB.ER PO SCH (08:52)
[2018-05-19] MEDS: DULoxetine HCL 60 MG CAPSULE.DR PO SCH (08:52)
[2018-05-19] MEDS: COLLAGENASE 250 UNIT/GM OINTMENT 30 GM TUBE TOPICAL SCH (08:52)
[2018-05-19 09:22] LABS: Anion Gap 5 mmol/L; Blood Urea Nitrogen 7 mg/dL (7-17); Calcium 8.1 mg/dL (8.4-10.2); Carbon Dioxide 24 mmol/L (22-30); Chloride 115 mmol/L (98-107); Glucose 80 mg/dL (74-99); Potassium 4.1 mmol/L (3.5-5.1); Sodium 144 mmol/L (137-145)
[2018-05-19] MEDS: HYDROcodone/APAP 7.5-325MG 1 EACH TAB PO PRN (16:15)
--- NOTE | 2018-05-19 17:38 | P.PN ---
Subjective Progress Note Date: 05/19/18 Patient reports that the redness and swelling is significantly improved since being admitted bilateral lower extremities are dressed, patient afebrile wound cultures are pending. No acute events overnight Objective - Vital Signs Vital signs: Vital Signs Temp 98.1 F 05/19/18 15:00 Pulse 94 05/19/18 15:00 Resp 16 05/19/18 15:00 BP 112/70 05/19/18 15:00 Pulse Ox 100 05/19/18 15:00 Intake & Output 05/18/18 05/19/18 05/19/18 18:59 06:59 18:59 Intake Total 0 Balance 0 Intake: Intake, IV Titration 0 Amount Vancomycin 1,250 mg In 0 Sodium Chloride 0.9% 250 ml @ 125 mls/hr IVPB Q12HR [facility] Rx#:[id number] Other: Voiding Method Bedpan Bedside Commode Bedpan # Voids 2 3 1 # Bowel Movements 0 - Exam Constitutional: No acute distress, conversant, pleasant Eyes: Anicteric sclerae, moist conjunctiva, no lid-lag, PERRLA ENMT: NC/AT,Oropharynx clear, no erythema, exudates Neck:Supple, FROM, no masses, or JVD, No carotid bruits; No thyromegaly Lungs: Clear to auscultation, Clear to percussion, Normal respiratory effort, no accessory muscle use Cardiovascular: Heart regular in rate and rhythm, No murmurs, gallops, or rubs no peripheral edema Abdominal: Soft Nontender, nom distended, no guarding, no rebound or rigidity, Normoactive bowel sounds No hepatomegaly, No splenomegaly, No palpable mass No abdominal wall hernia noted Skin: (Previously noted )patient has small lesion over the medial aspect of the right BKA stump, she has small lesion 1 x 1 cm over the upper third of the left leg over the hennessy with some surrounding erythema. Blistering over the anterior aspect of the left mid third of the tibia, currently dressed with Kerlix with minimal drainage Extremities:No digital cyanosis No clubbing, Pedal pulses intact and symmetrical Radial pulses intact and symmetrical Normal gait and station, No calf tenderness, right BKA Psychiatric: Alert and oriented to person, place and time, Appropriate affect Intact judgement Neuro: Muscles Strength 5/5 in all 4 extremities, Sensation to light touch grossly present throughout, Cranial nerves II-XII grossly intact. No focal sensory deficits - Labs CBC & Chem 7: 05/18/18 06:59 05/19/18 05:25 Labs: Abnormal Lab Results - Last 24 Hours (Table) 05/19/18 05/19/18 Range/Units 05:25 05:25 Chloride 115 H (98-107) mmol/L Calcium 8.1 L (8.4-10.2) mg/dL Vancomycin Trough 31.6 H* ug/mL Microbiology - Last 24 Hours (Table) 05/18/18 18:20 Gram Stain - Preliminary Leg - Left Wound Culture - Preliminary 05/18/18 18:20 Anaerobic Culture - Preliminary Leg - Left 05/17/18 16:31 Blood Culture - Preliminary Blood No Growth after 24 hours Assessment and Plan Plan: Left lower extremity cellulitis failed outpatient antibiotic therapy by mouth * Patient started on vancomycin but can likely be transitioned to Bactrim pending wound cultures ideas been consulted waiting on further recommendations * Pharmacy to dose vancomycin given elevated [place] trough of 32 * No leukocytosis, afebrile * Appreciate ID recommendations Hypertension currently controlled Continue home medications Hypokalemia * Resolved History of fibromyalgia Continue home medications Anticipate discharge in 1-2 days
--- NOTE | 2018-05-19 17:52 | PN ---
PROGRESS NOTE DATE OF SERVICE: 05/19/2018 REASON FOR FOLLOWUP: Bilateral leg wound and left leg cellulitis. INTERVAL HISTORY: The patient is afebrile, she is breathing comfortably. Has been complaining of pain into the leg area. Overall her redness has resolved. Minimal swelling though and no drainage from the wound. PHYSICAL EXAMINATION: Blood pressure 112/70 with a pulse of 94, temperature 98.1, she is 100% on room air. General description is a middle-aged female, lying in bed in no distress. RESPIRATORY SYSTEM: Unlabored breathing, clear to auscultation anteriorly. HEART: S1, S2. Regular rate and rhythm. Wounds are currently dressed up. No obvious drainage on the dressing. LABS: BUN of 7, creatinine 0.52. Wound culture is currently pending. Blood culture has been negative so far. DIAGNOSTIC IMPRESSION AND PLAN: Patient with bilateral extremity wound with right leg wound on the BKA and the left anterior hennessy with cultures currently pending. In view of the patient being admitted to the hospital for the same problem, will recommend waiting on the cultures before discharging. Keep the patient on vancomycin at this point and local wound care with Jeanineyl. Family present at bedside. Their questions were answered. MMODL / IJN: [id number] /
[2018-05-19] MEDS ORDERED: FLUCONAZOLE 100 MG TAB PO ONE (18:20)
[2018-05-19] MEDS: ARIPiprazole 2 MG TAB PO SCH (20:55)
[2018-05-19] MEDS: POLYETHYLENE GLYCOL 3350 17 GM POWD.PACK PO SCH (20:55)
[2018-05-20 01:32] LABS: Glucose,Whole Blood 117 mg/dL (75-99)
[2018-05-20 06:18] VITALS: RESP 16
[2018-05-20] MEDS: HYDROcodone/APAP 7.5-325MG 1 EACH TAB PO PRN (06:18)
[2018-05-20 06:59] LABS: Anion Gap 4 mmol/L; Blood Urea Nitrogen 7 mg/dL (7-17); Calcium 8.3 mg/dL (8.4-10.2); Carbon Dioxide 30 mmol/L (22-30); Chloride 107 mmol/L (98-107); Glucose 83 mg/dL (74-99); Potassium 4.6 mmol/L (3.5-5.1); Sodium 141 mmol/L (137-145)
[2018-05-20] MEDS: FOLIC ACID 1 MG TAB PO SCH (08:40)
[2018-05-20] MEDS: LACOSAMIDE 50 MG TABLET PO SCH (08:40)
[2018-05-20] MEDS: DULoxetine HCL 60 MG CAPSULE.DR PO SCH (08:40)
[2018-05-20] MEDS: GABAPENTIN 300 MG CAP PO SCH ×2 (08:40→16:16)
[2018-05-20] MEDS: VANCOMYCIN 1,250 MG in SODIUM CHLORIDE 0.9% 250 ML IVPB SCH (08:40)
[2018-05-20] MEDS: PANTOPRAZOLE 40 MG TABLET PO SCH (08:40)
[2018-05-20] MEDS: POTASSIUM CHLORIDE ER 20 MEQ TAB.ER PO SCH (08:40)
[2018-05-20] MEDS: METOPROLOL SUCCINATE (ER) 50 MG TAB.ER.24H PO SCH (08:40)
[2018-05-20] MEDS: DULoxetine HCL 30 MG CAPSULE.DR PO SCH (08:41)
[2018-05-20] MEDS: HEPARIN SODIUM,PORCINE 5,000 UNIT/ML 1 ML VIAL SQ SCH ×2 (08:41→16:16)
[2018-05-20] MEDS: COLLAGENASE 250 UNIT/GM OINTMENT 30 GM TUBE TOPICAL SCH (09:30)
[2018-05-20 14:40] VITALS: BP 104/70; PULSE 93; TEMP 97.4
--- NOTE | 2018-05-20 17:03 | P.DS ---
Providers Date of admission: 05/17/18 19:57 Expected date of discharge: 05/20/18 Attending physician: Narciso Saab MD Consults: 05/18/18 09:11 Consult Physician Routine Consulting Provider: Mario Rinaldi Consult Reason/Comments: cellulitis Do you want consulting provider notified?: Yes Primary care physician: Noa Mae - Discharge Diagnosis(es) (1) Left leg cellulitis Current Visit: No Status: Acute (2) Diabetes mellitus Current Visit: No Status: Acute (3) Hypokalemia Current Visit: No Status: Resolved Hospital Course: The patient is a 57-year-old female with a past medical history of essential hypertension type 2 diabetes, rheumatoid arthritis who was readmitted after being discharged from the hospital 3 days previously With the similar complaints of lower extremity redness and swelling With some new blistering and was admitted with left lower extremity cellulitis that questionably failed outpatient therapy on Keflex. The patient remained afebrile no leukocytosis noted, she was started on empiric IV antibiotics with IV vancomycin, this time around ID Dr. Rinaldi was consulted wound cultures were obtained. The patient had dressing changes daily with Santyl topical ointment. The the patient's hypokalemia was corrected. The swelling and erythema and blistering resolved, wound cultures were negative at time of discharge. She was transitioned to oral doxycycline to continue for 7 days and instructed to follow-up with her primary care physician Dr. Messina. This discharge process took approximately 35 minutes. Prescriptions at discharge doxycycline 100 mg by mouth twice a day for 7 days Focused exam Skin: (Previously noted )patient has small lesion over the medial aspect of the right BKA stump, she has small lesion 1 x 1 cm over the upper third of the left leg over the hennessy with some surrounding erythema. Blistering over the anterior aspect of the left mid third of the tibia (resolved), currently dressed with Kerlix with minimal drainage Extremities:No digital cyanosis No clubbing, Pedal pulses intact and symmetrical Radial pulses intact and symmetrical Normal gait and station, No calf tenderness, right BKA Patient Condition at Discharge: Fair Plan - Discharge Summary Discharge Rx Participant: No New Discharge Prescriptions: New Collagenase [Santyl] 1 applic TOPICAL DAILY applic Doxycycline [Vibramycin] 100 mg PO Q12HR #14 capsule Continue Omeprazole [PriLOSEC] 20 mg PO DAILY Lacosamide [Vimpat] 50 mg PO DAILY Methotrexate Sodium [Methotrexate] 7.5 mg PO TU Folic Acid 1 mg PO DAILY DULoxetine HCL [Cymbalta] 30 mg PO DAILY Alendronate Sodium 70 mg PO TH Ibuprofen [Motrin] 600 mg PO Q6HR PRN PRN Reason: Pain Metoprolol Succinate (ER) [Toprol XL] 50 mg PO DAILY DULoxetine HCL [Cymbalta] 60 mg PO DAILY Potassium Chloride ER [K-Dur 20] 20 meq PO DAILY #30 tab ARIPiprazole [Abilify] 2 mg PO HS Gabapentin [Neurontin] 600 mg PO TID HYDROcodone/APAP 7.5-325MG [[place] 7.5-325] 1 tab PO BID PRN PRN Reason: Pain Hydroxychloroquine Sulfate [Plaquenil] 200 mg PO DAILY Discontinued Cephalexin [Keflex] 500 mg PO Q6HR 7 Days #28 cap Discharge Medication List Omeprazole [PriLOSEC] 20 mg PO DAILY 02/06/16 [History] Lacosamide [Vimpat] 50 mg PO DAILY 12/19/16 [History] Alendronate Sodium 70 mg PO TH 04/27/18 [History] DULoxetine HCL [Cymbalta] 30 mg PO DAILY 04/27/18 [History] Folic Acid 1 mg PO DAILY 04/27/18 [History] Methotrexate Sodium [Methotrexate] 7.5 mg PO TU 04/27/18 [History] DULoxetine HCL [Cymbalta] 60 mg PO DAILY 04/28/18 [History] Ibuprofen [Motrin] 600 mg PO Q6HR PRN 04/28/18 [History] Metoprolol Succinate (ER) [Toprol XL] 50 mg PO DAILY 04/28/18 [History] Potassium Chloride ER [K-Dur 20] 20 meq PO DAILY #30 tab 05/01/18 [Rx] ARIPiprazole [Abilify] 2 mg PO HS 05/12/18 [History] Gabapentin [Neurontin] 600 mg PO TID 05/12/18 [History] HYDROcodone/APAP 7.5-325MG [[place] 7.5-325] 1 tab PO BID PRN 05/12/18 [History] Hydroxychloroquine Sulfate [Plaquenil] 200 mg PO DAILY 05/12/18 [History] Collagenase [Santyl] 1 applic TOPICAL DAILY applic 05/20/18 [Rx] Doxycycline [Vibramycin] 100 mg PO Q12HR #14 capsule 05/20/18 [Rx] Follow up Appointment(s)/Referral(s): Noa Mae MD [Primary Care Provider] - 1-2 days [facility], [NON-STAFF] - Discharge Disposition: HOME SELF-CARE
--- NOTE | 2018-05-20 19:05 | PN ---
PROGRESS NOTE DATE OF SERVICE: 05/20/2018. REASON FOR FOLLOWUP VISIT: Bilateral wound and cellulitis. INTERVAL HISTORY: The patient is afebrile. She is complaining of pain and swelling to the left knee. However, there is no significant redness. The wounds are clearing out. Denies any chest pain. No shortness of breath or cough. No abdominal pain or diarrhea. EXAMINATION: Blood pressure 104/70 with a pulse of 93. Temperature 97.4. She is 100% on room air. General description is a middle-aged female up in the bed in no distress. RESPIRATORY SYSTEM: Unlabored breathing. Clear to auscultation anteriorly. HEART: S1, S2. Regular rate and rhythm. ABDOMEN: Soft, no tenderness. LABS: BUN of 7, creatinine 0.47. The wound culture currently pending. Urine showing gram- negative, but UA was negative. DIAGNOSTIC IMPRESSION AND PLAN: 1. Patient with a right BK stump wound with the left leg wound cellulitis. The patient's cellulitis has resolved. She did have some swelling and pain which would be related to underlying PAD rather than infectious etiology. Blood cultures have been negative. Leg culture so far negative. On vancomycin that can be transitioned to oral doxycycline 100 mg b.i.d. for about a week to finish course of therapy. Local wound care to continue with Santyl. 2. The patient with positive urine culture, however, the corresponding UA was negative. The patient has no urinary symptoms, more likely contamination. No need for any specific antibiotic therapy for the same. MMODL / IJN: [id number] /
== END 2018-05-20 19:44 | disposition home or self-care (01) | DRG 603 ==
LOC: EC 14:33 → 4MS4W 19:57
PROVIDERS: ADMIT Internal Medicine; ATTEND Internal Medicine
DX: L03.116 Cellulitis of left lower limb (principal); T87.43 Infection of amputation stump, right lower extremity; Z89.511 Acquired absence of right leg below knee; E11.51 Type 2 diabetes mellitus with diabetic peripheral angiopathy without gangrene; F32.9 Major depressive disorder, single episode, unspecified; I10 Essential (primary) hypertension; I73.00 Raynaud's syndrome without gangrene; E87.6 Hypokalemia; L80 Vitiligo; M06.9 Rheumatoid arthritis, unspecified; M79.7 Fibromyalgia; M81.0 Age-related osteoporosis without current pathological fracture; Z79.899 Other long term (current) drug therapy; Z82.49 Family history of ischemic heart disease and other diseases of the circulatory system; Z83.3 Family history of diabetes mellitus; Z96.611 Presence of right artificial shoulder joint; F17.210 Nicotine dependence, cigarettes, uncomplicated; Z79.2 Long term (current) use of antibiotics
CPT/HCPCS: 36415; 71046; 80048; 80053; 80202; 81003; 83605; 83735; 84132; 84145; 85025; 85610; 85730; 87040; 87070; 87075; 87077; 87086; 87186; 87205; 93005; 96365; 96366; 96375; 99285

== ENCOUNTER → 2018-12-04 | Outpatient (CLI) | payer MEDICARE, OTHER ==
--- NOTE | 2018-12-04 11:45 | CT ---
EXAMINATION TYPE: CT abdomen pelvis wo/w con DATE OF EXAM: 12/04/2018 COMPARISON: None HISTORY: Patient complains of nausea and vomiting. CT DLP: 662.5 mGycm Automated exposure control for dose reduction was used. CONTRAST: CT scan of the abdomen pelvis is performed without and with IV Contrast, patient injected with 100 mL of Isovue 300. FINDINGS- LUNG BASES-interlobular septal thickening noted correlate for chronic interstitial lung disease. With in the right lower lobe there are 2 small nodules measuring less than 5 mm too small to characterize. . LIVER/GB-mildly reduced attenuation associated with hepatic steatosis. Within the left lobe on axial image 11 there is a low density structure which does not meet the criteria of a cyst measuring 2 cm c ompatible with a hepatic lesion. PANCREAS- No gross abnormality is seen. SPLEEN- No gross abnormality is seen. ADRENALS- No gross abnormality is seen. KIDNEYS/BLADDER- no hydronephrosis. There are 3 punctate calcifications involving the left kidney and a single punctate calcification along the right kidney all measuring 3 mm or less. Tiny hypodensity seen within both kidneys are too small to characterize measuring 5 mm or less.. BOWEL-mild bowel wall thickening involving the right colon is nonspecific. Retained fecal debris with in the rectum which results in distention.. LYMPH NODES- No greater than 1cm abdominal or pelvic lymph nodes areappreciated. OSSEOUS STRUCTURES-numerous chronic rib fractures are noted. Multilevel degenerative change of the ve rtebral column with age-indeterminate compression fracture L1 and superior endplate deformity or frac ture L3.. OTHER- aorta of normal caliber. Chronic appearing deformity of the spine symphysis pubis. Bladder is nondistended. Soft tissue densities in both adnexal regions likely related to a normal-appearing ova dieter. Atherosclerotic change aorta. IMPRESSION- 1. Nonobstructing bilateral renal calculi. 2. 2 cm left lobe hepatic lesion does not meet the criteria of a simple cyst ultrasound correlation s uggested. 3. There is thickening of the wall the right colon which may be related to incomplete distention heron elate with patient's clinical symptoms and with direct visualization as clinically warranted. Underly ing mucosal lesion or mild colitis not excluded. 4. evidence of remote skeletal trauma. 5. 5 mm right lower lobe pulmonary nodule. Correlate for chronic interstitial lung disease. Recommend 6 month follow-up CT chest.
== END | disposition home or self-care (01) ==
LOC: RADCTMAIN 07:55
PROVIDERS: ATTEND Family Medicine
DX: N20.0 Calculus of kidney (principal); K76.9 Liver disease, unspecified; K63.89 Other specified diseases of intestine; R63.4 Abnormal weight loss; E87.6 Hypokalemia; K59.00 Constipation, unspecified
CPT/HCPCS: 74178; Q9967

== ENCOUNTER 2018-12-11 07:31 | Inpatient (IN) | payer MEDICARE, OTHER ==
[2018-12-11] MEDS ORDERED: SODIUM CHLORIDE 0.9% 500 ML 500 ML IV STA (07:58)
[2018-12-11] MEDS ORDERED: ONDANSETRON 4 MG/2 ML VIAL IVP STA (07:58)
[2018-12-11] MEDS ORDERED: SODIUM CHLORIDE 0.9% 1,000 ML IV STA ×2 (07:58)
--- NOTE | 2018-12-11 08:07 | ED ---
Nausea/Vomiting/Diarrhea HPI - General Chief complaint: Nausea/Vomiting/Diarrhea Stated complaint: vomiting, no appetite Time Seen by Provider: 12/11/18 07:47 Source: patient, family, RN notes reviewed Mode of arrival: wheelchair Limitations: no limitations - History of Present Illness Initial comments: This is a 58-year-old female history of vomiting has persisted for months and seems be worse today. She is unable keep any food or liquid down. She weighs 114 pounds are normally is 150. Per her daughter yesterday she had some red flecks and coffee-ground colored emesis though she did drink some dark tea yesterday source unclear whether this was blood or some other infestation. Patient greenish colored vomit. She feels weak and dizzy when she gets up to walk tired no chest pain no cough or phlegm production. Currently no other modifying factors. She states she does not smoke marijuana. She has been worked up for this and thus far the etiology is unknown. MD complaint: nausea, vomiting, other - Related Data Home Medications Medication Instructions Recorded Confirmed Omeprazole [PriLOSEC] 20 mg PO DAILY 02/06/16 05/17/18 Lacosamide [Vimpat] 50 mg PO DAILY 12/19/16 05/17/18 Alendronate Sodium 70 mg PO TH 04/27/18 05/17/18 DULoxetine HCL [Cymbalta] 30 mg PO DAILY 04/27/18 05/17/18 Folic Acid 1 mg PO DAILY 04/27/18 05/17/18 Methotrexate Sodium [Methotrexate] 7.5 mg PO TU 04/27/18 05/17/18 DULoxetine HCL [Cymbalta] 60 mg PO DAILY 04/28/18 05/17/18 Ibuprofen [Motrin] 600 mg PO Q6HR PRN 04/28/18 05/17/18 Metoprolol Succinate (ER) [Toprol 50 mg PO DAILY 04/28/18 05/17/18 XL] ARIPiprazole [Abilify] 2 mg PO HS 05/12/18 05/17/18 Gabapentin [Neurontin] 600 mg PO TID 05/12/18 05/17/18 HYDROcodone/APAP 7.5-325MG [[place] 1 tab PO BID PRN 05/12/18 05/17/18 7.5-325] Hydroxychloroquine Sulfate 200 mg PO DAILY 05/12/18 05/17/18 [Plaquenil] Previous Rx's Medication Instructions Recorded Potassium Chloride ER [K-Dur 20] 20 meq PO DAILY #30 tab 05/01/18 Collagenase [Santyl] 1 applic TOPICAL DAILY applic 05/20/18 Doxycycline [Vibramycin] 100 mg PO Q12HR #14 capsule 05/20/18 Allergies Allergy/AdvReac Type Severity Reaction Status Date / Time No Known Allergies Allergy Verified 12/11/18 07:37 Review of Systems ROS Statement: Those systems with pertinent positive or pertinent negative responses have been documented in the HPI. ROS Other: All systems not noted in ROS Statement are negative. Past Medical History Past Medical History: Hypertension, Osteoarthritis (OA), Rheumatoid Arthritis ( RA) Additional Past Medical History / Comment(s): neuropathy Vitiligo, Raynaud's peripheral neuropathy. History of Any Multi-Drug Resistant Organisms: MRSA Date of last positivie culture/infection: 06/11/12 MDRO Source:: Unknown Past Surgical History: Appendectomy, Section, Joint Replacement, Orthopedic Surgery, Tonsillectomy, Tubal Ligation Additional Past Surgical History / Comment(s): right shoulder replacement, right leg amputation Past Anesthesia/Blood Transfusion Reactions: No Reported Reaction Past Psychological History: Depression Smoking Status: Current every day smoker Past Alcohol Use History: Daily Past Drug Use History: None Reported - Past Family History Mother Family Medical History: No Reported History, Diabetes Mellitus, Hyperlipidemia, Hypertension Father Family Medical History: Diabetes Mellitus, Hypertension Sister(s) Family Medical History: No Reported History Son(s) Family Medical History: No Reported History General Exam - General Exam Comments Initial Comments: Is a well-developed sec appearing female who is awake alert though somewhat lethargic Limitations: no limitations General appearance: alert, in no apparent distress Head exam: Present: atraumatic, normocephalic, normal inspection Eye exam: Present: normal appearance, PERRL, EOMI. Absent: scleral icterus, conjunctival injection, periorbital swelling ENT exam: Present: mucous membranes dry Neck exam: Present: normal inspection, full ROM, other (No stridor JVD or bruits ). Absent: tenderness, meningismus, lymphadenopathy Respiratory exam: Present: normal lung sounds bilaterally. Absent: respiratory distress, wheezes, rales, rhonchi, stridor Cardiovascular Exam: Present: regular rate, normal rhythm, normal heart sounds. Absent: systolic murmur, diastolic murmur, rubs, gallop, clicks GI/Abdominal exam: Present: soft, normal bowel sounds. Absent: distended, tenderness, guarding, rebound, rigid, bruit, pulsatile mass Extremities exam: Present: normal inspection, full ROM, normal capillary refill. Absent: tenderness, pedal edema, joint swelling, calf tenderness Back exam: Present: normal inspection Neurological exam: Present: alert, oriented X3, CN II-XII intact Psychiatric exam: Present: normal mood, flat affect Skin exam: Present: warm, dry, intact, other (Examination of her skin reveals ferguson colored skin the patient denies using a Josh. Per her daughter this is normal color for her.). Absent: rash Course Vital Signs 12/11/18 12/11/18 12/11/18 07:32 09:36 12:40 Temperature 97.8 F 98.2 F Pulse Rate 84 72 82 Respiratory 18 18 18 Rate Blood Pressure 132/85 143/77 133/88 O2 Sat by Pulse 99 97 98 Oximetry - Reevaluation(s) Reevaluation #1: 12/11/18 13:55 The patient is thus far got minimal relief with IV fluids still feels weak and dizzy. I did discuss the case with Dr. Klein who did request a computed tomography scan of the abdomen prior to admission. This has been ordered. Medical Decision Making - Medical Decision Making I did discuss the findings with the patient and family members as well as Dr. Klein on a couple occasions. Patient be admitted with GI consultation continued hydration. - Lab Data Result diagrams: 12/11/18 08:40 12/11/18 08:40 Lab Results 12/11/18 12/11/18 12/11/18 Range/Units 08:40 08:40 08:40 WBC 8.8 (3.8-10.6) k/uL RBC 4.21 (3.80-5.40) m/uL Hgb 12.9 (11.4-16.0) gm/dL Hct 40.6 (34.0-46.0) % MCV 96.6 (80.0-100.0) fL MCH 30.6 (25.0-35.0) pg MCHC 31.7 (31.0-37.0) g/dL RDW 21.6 H (11.5-15.5) % Plt Count (150-450) k/uL Neutrophils % (Manual) 70 % Lymphocytes % (Manual) 24 % Monocytes % (Manual) 5 % Eosinophils % (Manual) 1 % Other Cells % [employer]ISTR[employer] Neutrophils # (Manual) 6.16 (1.3-7.7) k/uL Lymphocytes # (Manual) 2.11 (1.0-4.8) k/uL Monocytes # (Manual) 0.44 (0-1.0) k/uL Eosinophils # (Manual) 0.09 (0-0.7) k/uL Nucleated RBCs 0 (0-0) /100 WBC Manual Slide Review Performed Toxic Granulation Present Hypochromasia Slight Anisocytosis Moderate Macrocytosis Moderate Sodium 139 (137-145) mmol/L Potassium 3.3 L (3.5-5.1) mmol/L Chloride 104 (98-107) mmol/L Carbon Dioxide 24 (22-30) mmol/L Anion Gap 11 mmol/L BUN 12 (7-17) mg/dL Creatinine 0.64 (0.52-1.04) mg/dL Est GFR (CKD-EPI)AfAm >90 (>60 ml/min/1.73 sqM) Est GFR (CKD-EPI)NonAf >90 (>60 ml/min/1.73 sqM) Glucose 94 (74-99) mg/dL Plasma Lactic Acid Al 1.1 (0.7-2.0) mmol/L Calcium 9.3 (8.4-10.2) mg/dL Magnesium 2.1 (1.6-2.3) mg/dL Total Bilirubin 1.1 (0.2-1.3) mg/dL AST 59 H (14-36) U/L ALT 42 (9-52) U/L Alkaline Phosphatase 122 (38-126) U/L Total Protein 6.4 (6.3-8.2) g/dL Albumin 3.3 L (3.5-5.0) g/dL Amylase <30 L (30-110) U/L Lipase 36 (23-300) U/L TSH 0.573 (0.465-4.680) mIU/L Cortisol 30 ug/dL Urine Color Urine Appearance (Clear) Urine pH (5.0-8.0) Ur Specific [place] (1.001-1.035) Urine Protein (Negative) Urine Glucose (UA) (Negative) Urine Ketones (Negative) Urine Blood (Negative) Urine Nitrite (Negative) Urine Bilirubin (Negative) Urine Urobilinogen (<2.0) mg/dL Ur Leukocyte Esterase (Negative) Urine RBC (0-5) /hpf Urine WBC (0-5) /hpf Ur Squamous Epith Cells (0-4) /hpf Urine Bacteria (None) /hpf Hyaline Casts (0-2) /lpf Urine Mucus (None) /hpf 12/11/18 Range/Units 14:00 WBC (3.8-10.6) k/uL RBC (3.80-5.40) m/uL Hgb (11.4-16.0) gm/dL Hct (34.0-46.0) % MCV (80.0-100.0) fL MCH (25.0-35.0) pg MCHC (31.0-37.0) g/dL RDW (11.5-15.5) % Plt Count (150-450) k/uL Neutrophils % (Manual) % Lymphocytes % (Manual) % Monocytes % (Manual) % Eosinophils % (Manual) % Other Cells % Neutrophils # (Manual) (1.3-7.7) k/uL Lymphocytes # (Manual) (1.0-4.8) k/uL Monocytes # (Manual) (0-1.0) k/uL Eosinophils # (Manual) (0-0.7) k/uL Nucleated RBCs (0-0) /100 WBC Manual Slide Review Toxic Granulation Hypochromasia Anisocytosis Macrocytosis Sodium (137-145) mmol/L Potassium (3.5-5.1) mmol/L Chloride (98-107) mmol/L Carbon Dioxide (22-30) mmol/L Anion Gap mmol/L BUN (7-17) mg/dL Creatinine (0.52-1.04) mg/dL Est GFR (CKD-EPI)AfAm (>60 ml/min/1.73 sqM) Est GFR (CKD-EPI)NonAf (>60 ml/min/1.73 sqM) Glucose (74-99) mg/dL Plasma Lactic Acid Al (0.7-2.0) mmol/L Calcium (8.4-10.2) mg/dL Magnesium (1.6-2.3) mg/dL Total Bilirubin (0.2-1.3) mg/dL AST (14-36) U/L ALT (9-52) U/L Alkaline Phosphatase (38-126) U/L Total Protein (6.3-8.2) g/dL Albumin (3.5-5.0) g/dL Amylase (30-110) U/L Lipase (23-300) U/L TSH (0.465-4.680) mIU/L Cortisol ug/dL Urine Color Yellow Urine Appearance Cloudy H (Clear) Urine pH 6.5 (5.0-8.0) Ur Specific [place] 1.021 (1.001-1.035) Urine Protein Trace H (Negative) Urine Glucose (UA) Negative (Negative) Urine Ketones Negative (Negative) Urine Blood Trace H (Negative) Urine Nitrite Negative (Negative) Urine Bilirubin Negative (Negative) Urine Urobilinogen 2.0 (<2.0) mg/dL Ur Leukocyte Esterase Moderate H (Negative) Urine RBC 3 (0-5) /hpf Urine WBC 47 H (0-5) /hpf Ur Squamous Epith Cells 3 (0-4) /hpf Urine Bacteria Rare H (None) /hpf Hyaline Casts 1 (0-2) /lpf Urine Mucus Rare H (None) /hpf - Radiology Data Radiology results: report reviewed (I did review the imaging and reports x-rays are unremarkable the CAT scan does show evidence of some thickening of the right hemicolon which may reflect colitis.), image reviewed Disposition Clinical Impression: Dehydration, Abdominal pain, Intractable vomiting, Failure to thrive Disposition: ADMITTED IP TO THIS [facility] Condition: Stable Referrals: Noa Mae MD [Primary Care Provider] - 1-2 days
[2018-12-11 08:57] LABS: Anisocytosis Moderate; HCT 40.6 % (34.0-46.0); HGB 12.9 gm/dL (11.4-16.0); Hypochromasia Slight; MCH 30.6 pg (25.0-35.0); MCHC 31.7 g/dL (31.0-37.0); MCV 96.6 fL (80.0-100.0); Macrocytosis Moderate; Mean Platelet Volume 11.7; RBC 4.21 m/uL (3.80-5.40); RDW 21.6 % (11.5-15.5); WBC 8.8 k/uL (3.8-10.6)
[2018-12-11 09:09] LABS: Sodium 139 mmol/L (137-145)
--- NOTE | 2018-12-11 09:11 | XR ---
EXAMINATION TYPE: XR chest 2V DATE OF EXAM: 12/11/2018 COMPARISON: Chest x-ray May 17, 2018 HISTORY: Cough. TECHNIQUE: Frontal and lateral views of the chest are obtained. FINDINGS: There is chronic parenchymal change without suspicious no focal air space opacity, pleural effusion, or pneumothorax seen. The cardiac silhouette size is stable and mildly enlarged. The os seous structures are demineralized. There is old fracture deformity left proximal humerus. There are multiple bilateral rib fractures lateral aspect redemonstrated. There is partial visualization of lyndsey gical change right shoulder level. IMPRESSION: Mild cardiomegaly and chronic parenchymal changes without acute pulmonary process.
[2018-12-11 09:12] LABS: ALT 42 U/L (9-52); AST 59 U/L (14-36); Albumin 3.3 g/dL (3.5-5.0); Alkaline Phosphatase 122 U/L (38-126); Amylase <30 U/L (30-110); Anion Gap 11 mmol/L; Blood Urea Nitrogen 12 mg/dL (7-17); Calcium 9.3 mg/dL (8.4-10.2); Carbon Dioxide 24 mmol/L (22-30); Chloride 104 mmol/L (98-107); Glucose 94 mg/dL (74-99); Lipase 36 U/L (23-300); Magnesium 2.1 mg/dL (1.6-2.3); Total Bilirubin 1.1 mg/dL (0.2-1.3); Total Protein 6.4 g/dL (6.3-8.2)
--- NOTE | 2018-12-11 09:14 | XR ---
EXAMINATION TYPE: XR KUB DATE OF EXAM: 12/11/2018 8:54 AM CLINICAL HISTORY: Pain. Vomiting for 2 months. TECHNIQUE: Single supine KUB image of the abdomen is obtained. COMPARISON: CT from one week ago. FINDINGS: Gas is seen in nondistended stomach. Scattered gas is seen in non-distended small bowel loo ps. Gas and contrast material is seen in non-distended colon and rectum. Small bilateral renal calcul i and CT are less well seen on x-ray. Dextroconvex scoliosis centered in the mid lumbar spine is rede monstrated. Moderate to severe compression fracture L1 level is again seen. Multiple bilateral rib fr actures are redemonstrated. Moderate narrowing bilateral hip joints is seen. IMPRESSION: Overall nonobstructive bowel gas pattern remains present.
[2018-12-11 09:31] LABS: Potassium 3.3 mmol/L (3.5-5.1)
[2018-12-11] MEDS ORDERED: POTASSIUM CHLORIDE 20 MEQ in WATER FOR INJECTION 1 100ML.BAG IVPB STA (09:52)
[2018-12-11] MEDS ORDERED: METOCLOPRAMIDE 5 MG/ML 2 ML VIAL IVP STA (10:04)
[2018-12-11 10:11] LABS: Eosinophils # (M) 0.09 k/uL (0-0.7); Lymphocytes # (M) 2.11 k/uL (1.0-4.8); Monocytes # (M) 0.44 k/uL (0-1.0); Neutrophils # (M) 6.16 k/uL (1.3-7.7); Neutrophils % (M) 70 %; Nucleated Red Blood Cells 0 /100 WBC (0-0); Total Cells Counted 100
[2018-12-11 10:12] LABS: Toxic Granulation Present
[2018-12-11 14:24] LABS: Appearance,Urine Cloudy (Clear); Bacteria,Urine Rare /hpf; Bilirubin,Urine Negative (Negative); Blood,Urine Trace (Negative); Color,Urine Yellow; Glucose,Urine (UA) Negative (Negative); Hyaline Casts,Urine 1 /lpf (0-2); Ketones,Urine Negative (Negative); Leukocyte Esterase,Urine Moderate (Negative); Mucus,Urine Rare /hpf; Nitrite,Urine Negative (Negative); PH, Urine 6.5 (5.0-8.0); Protein,Urine Trace (Negative); RBC,Urine 3 /hpf (0-5); Specific Gravity,Urine 1.021 (1.001-1.035); Squamous Epithelial Cell,Urine 3 /hpf (0-4); WBC,Urine 47 /hpf (0-5)
--- NOTE | 2018-12-11 14:29 | CT ---
EXAMINATION TYPE: CT abdomen pelvis w con DATE OF EXAM: 12/11/2018 COMPARISON: 12/04/2018 HISTORY: nausea, vomiting CT DLP: 637.5 mGycm CONTRAST: CT scan of the abdomen and pelvis is performed without Oral Contrast and with IV Contrast, patient in jected with 100 mL of Isovue 300. FINDINGS: LUNG BASES-: 5 mm right lower lobe nodule redemonstrated. Follow up as indicated. No infiltrate. LIVER/GB: No calcified gallstones. No space occupying hepatic lesion. Biliary tree is of normal ca liber. Hepatic steatosis noted. Hepatic cystic lesion redemonstrated. PANCREAS: No inflammation. No distinct mass. SPLEEN: No splenic enlargement. No lesion seen. ADRENALS: No nodule. No thickening. KIDNEYS/BLADDER: No hydronephrosis. Nonobstructing bilateral nephrolithiasis. No distinct renal mass . Urinary bladder grossly unremarkable. BOWEL: Normal appendix. Normal bowel caliber Wall thickening right hemicolon may reflect focal colit is. Correlate clinically. GENITAL ORGANS: No gross abnormality. LYMPH NODES: No greater than 1cm abdominal or pelvic lymph nodes are appreciated. AORTA: No significant abnormality. OSSEOUS STRUCTURES: No significant abnormality is seen. OTHER: No significant additional abnormality is seen. IMPRESSION: 1. No interval changes noted. 2. Nonobstructing nephrolithiasis. 3. Cystic lesion left hepatic lobe is nonspecific. 4. Persistent wall thickening right hemicolon may reflect colitis. Correlate clinically. 5. Hepatic steatosis
[2018-12-11] MEDS ORDERED: HYDROmorphone 0.5 MG/0.5 ML SYRINGE IVP PRN (15:11)
[2018-12-11] MEDS ORDERED: NALOXONE 0.4 MG/ML 1 ML VIAL IV PRN ×2 (15:11→16:23)
[2018-12-11] MEDS ORDERED: ACETAMINOPHEN TAB 325 MG TAB PO PRN (16:23)
[2018-12-11] MEDS ORDERED: MORPHINE SULFATE 2 MG/ML SYRINGE IV PRN (16:23)
[2018-12-11] MEDS: SODIUM CHLORIDE 0.9% 1,000 ML IV SCH (18:06)
[2018-12-11] MEDS: LEVOFLOXACIN 750MG-D5W PMX 750 MG in DEXTROSE/WATER 1 150ML.BAG IVPB SCH (18:06)
[2018-12-11] MEDS: metroNIDAZOLE 500 MG TAB PO SCH ×2 (18:06→22:29)
--- NOTE | 2018-12-11 18:26 | P.HPIM ---
History of Present Illness H&P Date: 12/11/18 Chief Complaint: Nausea or vomiting 58 show female with PMH of rheumatoid arthritis, hypertension presents to the ED for nausea and vomiting. Patient reports that she has been nauseous and throwing up multiple times daily over the past few weeks. This problem happens any time she eats or drinks anything. Patient reports not eating anything since [place]. She also reports a 75 pound weight loss over the past year, 20 pounds over the last month. She denies eating foods out of the ordinary. She denies any sick contacts. Patient also complains of lower abdominal pain, ongoing for many months. Pain is intermittent and is not related to her meals. Patient is unable to effectively describe her pain. Patient denies any dysuria or hematuria. She denies any diarrhea but endorses constipation, last bowel movement was last Monday. Patient denies any traveling, lower extremity edema, fever or chills, cough, chest pain, shortness of breath, palpitations. Patient also complains of dizziness. She describes the dizziness as a "room spinning sensation". She denies any hearing loss/tinnitus or any changes with position. She denies any upper respiratory infection. In the ED, CBC was unremarkable. CMP showed potassium of 3.3, AST of 59. Amylase and lipase was normal. Urinalysis was dirty. Abdominal and chest x- ray was unremarkable for any acute process. CT abdomen and pelvis showed persistent wall thickening of the right hemicolon, may reflect colitis. Patient is admitted for treatment of colitis, IV antibiotics and inability to tolerate by mouth, gastroenterology on consult. Review of Systems All systems: negative Past Medical History Past Medical History: Diabetes Mellitus, GERD/Reflux, Hypertension, Osteoarthritis (OA), Rheumatoid Arthritis (RA), Vascular Disorder Additional Past Medical History / Comment(s): neuropathy Vitiligo, Raynaud's , peripheral neuropathy. hx cellulitis lt lower leg History of Any Multi-Drug Resistant Organisms: MRSA Date of last positivie culture/infection: 06/11/12 MDRO Source:: lt axilla Past Surgical History: Appendectomy, Section, Joint Replacement, Orthopedic Surgery, Tonsillectomy, Tubal Ligation Additional Past Surgical History / Comment(s): right shoulder replacement, right leg amputation Past Anesthesia/Blood Transfusion Reactions: No Reported Reaction Smoking Status: Current every day smoker - Past Family History Mother Family Medical History: No Reported History, Diabetes Mellitus, Hyperlipidemia, Hypertension Father Family Medical History: Diabetes Mellitus, Hypertension Sister(s) Family Medical History: No Reported History Son(s) Family Medical History: No Reported History Medications and Allergies Home Medications Medication Instructions Recorded Confirmed Type Omeprazole [PriLOSEC] 20 mg PO DAILY 02/06/16 12/11/18 History Methotrexate Sodium [Methotrexate] 7.5 mg PO TU 04/27/18 12/11/18 History Gabapentin [Neurontin] 600 mg PO TID 12/11/18 12/11/18 History Temazepam [Restoril] 15 mg PO HS 12/11/18 12/11/18 History Allergies Allergy/AdvReac Type Severity Reaction Status Date / Time No Known Allergies Allergy Verified 12/11/18 17:46 Physical Exam Vitals: Vital Signs Temp Pulse Pulse Resp BP BP Pulse Ox 12/11/18 17:40 99.4 F 71 16 120/76 95 12/11/18 16:55 82 15 117/77 15 L 12/11/18 12:40 98.2 F 82 18 133/88 98 12/11/18 09:36 72 18 143/77 97 12/11/18 07:32 97.8 F 84 18 132/85 99 Intake and Output 12/11/18 12/11/18 12/11/18 06:59 14:59 22:59 Other: Weight 51.71 kg General: [non toxic], [no distress], [appears at stated age] Derm: [warm], [dry] Head: [atraumatic], [normocephalic], [symmetric] Eyes: [EOMI], [no lid lag], [anicteric sclera] Mouth: [no lip lesion], [mucus membranes moist] Cardiovascular: [S1S2 reg], [no murmur], [positive posterior tibial pulse bilateral], Lungs: [CTA bilateral], [no rhonchi, no rales] , [no accessory muscle use] Abdominal: [soft], [mild tenderness to palpation in the right and left lower quadrant without rebound], [no guarding], [no appreciable organomegaly] Ext: [no gross muscle atrophy], [no edema], [right lower extremity amputation] Neuro: [no focal neuro deficits] Psych: [Alert], [oriented], [appropriate affect] Results CBC & Chem 7: 12/11/18 08:40 12/11/18 08:40 Labs: Abnormal Lab Results - Last 24 Hours (Table) 12/11/18 12/11/18 12/11/18 Range/Units 08:40 08:40 14:00 RDW 21.6 H (11.5-15.5) % Potassium 3.3 L (3.5-5.1) mmol/L AST 59 H (14-36) U/L Albumin 3.3 L (3.5-5.0) g/dL Amylase <30 L (30-110) U/L Urine Appearance Cloudy H (Clear) Urine Protein Trace H (Negative) Urine Blood Trace H (Negative) Ur Leukocyte Esterase Moderate H (Negative) Urine WBC 47 H (0-5) /hpf Urine Bacteria Rare H (None) /hpf Urine Mucus Rare H (None) /hpf Thrombosis Risk Factor Assmnt - Choose All That Apply Any of the Below Risk Factors Present?: Yes Each Factor Represents 1 point: Age 41-60 years Other Risk Factors: No Other congenital or acquired thrombophilia - If yes, enter type in comment: No Thrombosis Risk Factor Assessment Total Risk Factor Score: 1 Thrombosis Risk Factor Assessment Level: Low Risk Assessment and Plan Assessment: Assessment and Plan 1. Colitis 2. Dizziness 3. Rheumatoid arthritis 4. Peripheral neuropathy 5. Diabetes Mellitus 1. As seen on CT. Lipase and amylase is within normal limits. Urinalysis is dirty. Patient is afebrile with no leukocytosis, lactic acid within normal limits. We will start the patient on IV levofloxacin and Flagyl by mouth. Zofran as needed for nausea and vomiting. Start Protonix 40 mg IV twice a day. Pain control with Tylenol, morphine as needed. Clear liquid diet and advance. Will follow gastroenterology recommendations. 2. Possibly orthostatic due to poor oral intake. Continue normal saline at 125 mL an hour. Will follow orthostatics in the morning. Fall precautions. 3. Takes methotrexate every . Follow-up with rheumatology in the outpatient setting. 4. Stable. Resume gabapentin 600 mg by mouth 3 times a day. 5. A1c 6.6 in 11/30/2018. POC glucose 91. Start insulin sliding scale. Regular Accu-Cheks. Hypoglycemic precautions. Patient being treated for colitis, IV antibiotics. Gastroenterology on consult. Likely discharge in 1-2 days. Patient is full code.
[2018-12-11 20:37] LABS: Glucose,Whole Blood 94 mg/dL (75-99)
[2018-12-11] MEDS: ONDANSETRON 4 MG/2 ML VIAL IVP PRN (20:48)
[2018-12-11] MEDS: TEMAZEPAM 15 MG CAP PO SCH (22:29)
[2018-12-11] MEDS: GABAPENTIN 300 MG CAP PO SCH (22:29)
[2018-12-11] MEDS: PANTOPRAZOLE 40 MG/10 ML VIAL IVP SCH (22:35)
[2018-12-12] MEDS: SODIUM CHLORIDE 0.9% 1,000 ML IV SCH ×3 (07:02→15:20)
[2018-12-12 07:06] LABS: Glucose,Whole Blood 78 mg/dL (75-99)
[2018-12-12] MEDS: INSULIN ASPART 100 UNIT/ML 1 ML 10 ML VIAL SQ SCH ×3 (07:20→17:03)
[2018-12-12] MEDS: GABAPENTIN 300 MG CAP PO SCH ×3 (07:57→22:20)
[2018-12-12] MEDS: metroNIDAZOLE 500 MG TAB PO SCH ×3 (07:58→22:20)
[2018-12-12] MEDS: ONDANSETRON 4 MG/2 ML VIAL IVP PRN ×2 (08:02→20:33)
[2018-12-12 08:04] LABS: Anisocytosis Moderate; Basophils % (A) 0 %; Eosinophils # (A) 0.1 k/uL (0-0.7); Eosinophils % (A) 3 %; HCT 32.6 % (34.0-46.0); HGB 10.2 gm/dL (11.4-16.0); Hypochromasia Moderate; Lymphocytes # (A) 1.1 k/uL (1.0-4.8); Lymphocytes % (A) 21 %; MCH 30.6 pg (25.0-35.0); MCHC 31.3 g/dL (31.0-37.0); MCV 97.8 fL (80.0-100.0); Macrocytosis Moderate; Mean Platelet Volume 7.9; Monocytes # (A) 0.3 k/uL (0-1.0); Monocytes % (A) 6 %; Neutrophils # (A) 3.7 k/uL (1.3-7.7); Neutrophils % (A) 69 %; Platelet Count 237 k/uL (150-450); RBC 3.33 m/uL (3.80-5.40); RDW 21.8 % (11.5-15.5); WBC 5.4 k/uL (3.8-10.6)
[2018-12-12] MEDS: PANTOPRAZOLE 40 MG/10 ML VIAL IVP SCH ×2 (08:09→22:20)
[2018-12-12 08:18] LABS: Anion Gap 4 mmol/L; Blood Urea Nitrogen 6 mg/dL (7-17); Calcium 7.7 mg/dL (8.4-10.2); Carbon Dioxide 22 mmol/L (22-30); Chloride 113 mmol/L (98-107); Glucose 75 mg/dL (74-99); Sodium 139 mmol/L (137-145)
[2018-12-12 08:21] LABS: Potassium 2.3 mmol/L (3.5-5.1)
[2018-12-12] MEDS ORDERED: POTASSIUM CHLORIDE ER 20 MEQ TAB.ER PO STA ×2 (08:25→14:49)
--- NOTE | 2018-12-12 09:15 | P.CONS ---
History of Present Illness - Reason for Consult Consult date: 12/12/18 nausea vomiting weight loss Requesting physician: Rekha Klein - Chief Complaint nause vomiting weight loss - History of Present Illness 58-year-old female with a past medical history of peripheral neuropathy right BKA, GERD, hypertension, RA, diabetes, depression admitted with reports of mild abdominal discomfort pain intractable nausea vomiting unintentional weight loss since . Present weight 52 kg she was 53 kg 6 months ago 13 months ago she was between 61 and 68 kg. denies diarrhea or constipation. Receiving IV antibiotics. Denies hematemesis hematochezia melena. No fever chills. No diarrhea. CT abdomen and pelvis reported wall thickening right hemicolon possible colitis. Hepatic steatosis. Hemoglobin 12.9 presently 10.2. White count 8.8. Platelet 237. Potassium this morning 2.3. LFTs lipase unremarkable. Colonoscopy to her memory a few years ago. Polyps removed. No recent EGD. She presently smoke cigarettes. Drinks rum and Coke daily sometimes every other day for many years. No excessive usage of aspirin or NSAIDs. No recent travels. No changes in medications. Review of Systems Constitutional: Denies fever, chills, sweats, weight gain, or loss. HEENT: Negative for migraines, blurred vision or loss, earaches, drainage, tinnitus, oral mucosal lesions, dysphagia, or odynophagia. CARDIAC: Negative for chest pain, arrhythmias, or palpitation. RESPIRATORY: Negative for shortness of breath, hemoptysis, cough, or sputum production. GI: See HPI for pertinent findings. : Negative for hematuria, urgency, frequency, polyuria, or dysuria. GYNc: Denies possibility of . Negative vaginal discharge. MUSCULOSKELETAL: Negative for muscle aches, swelling, arthritis, and arthralgias. NEUROLOGIC: Negative for stroke or TIA. ENDOCRINE: Negative for thyroid problems. SKIN: Negative for rash or itching. PSYCHIATRIC: Negative history for depression and anxiety Past Medical History Past Medical History: Diabetes Mellitus, GERD/Reflux, Hypertension, Osteoarthritis (OA), Rheumatoid Arthritis (RA), Vascular Disorder Additional Past Medical History / Comment(s): neuropathy Vitiligo, Raynaud's , peripheral neuropathy. hx cellulitis lt lower leg History of Any Multi-Drug Resistant Organisms: MRSA Year Discovered:: 06/11/12 MDRO Source:: lt axilla Past Surgical History: Appendectomy, Section, Joint Replacement, Orthopedic Surgery, Tonsillectomy, Tubal Ligation Additional Past Surgical History / Comment(s): right shoulder replacement, right leg amputation Past Anesthesia/Blood Transfusion Reactions: No Reported Reaction Smoking Status: Current every day smoker - Past Family History Mother Family Medical History: No Reported History, Diabetes Mellitus, Hyperlipidemia, Hypertension Father Family Medical History: Diabetes Mellitus, Hypertension Sister(s) Family Medical History: No Reported History Son(s) Family Medical History: No Reported History Medications and Allergies Home Medications Medication Instructions Recorded Confirmed Type Omeprazole [PriLOSEC] 20 mg PO DAILY 02/06/16 12/11/18 History Methotrexate Sodium [Methotrexate] 7.5 mg PO TU 04/27/18 12/11/18 History Gabapentin [Neurontin] 600 mg PO TID 12/11/18 12/11/18 History Temazepam [Restoril] 15 mg PO HS 12/11/18 12/11/18 History Allergies Allergy/AdvReac Type Severity Reaction Status Date / Time No Known Allergies Allergy Verified 12/11/18 17:46 Physical Exam Vitals: Vital Signs Temp Pulse Pulse Resp BP BP Pulse Ox 12/12/18 06:03 98.3 F 70 17 95/59 93 L 12/11/18 22:39 98.1 F 88 17 105/61 97 12/11/18 17:40 99.4 F 71 16 120/76 95 12/11/18 16:55 82 15 117/77 15 L 12/11/18 12:40 98.2 F 82 18 133/88 98 12/11/18 09:36 72 18 143/77 97 Intake and Output 12/11/18 12/12/18 12/12/18 22:59 06:59 14:59 Other: # Voids 1 3 General appearance: The patient is alert, oriented, in no acute distress. HET: Head is normocephalic and atraumatic. Pupils are equal and reactive. Oropharynx is clear without lesions. Neck: Supple without lymphadenopathy. Trachea midline. Heart: S1 S2. Regular rate and rhythm. Lungs: No crackles or wheezes are heard. Abdomen: Soft, nontender, nondistended with bowel sounds. No peritoneal signs. No palpable organomegaly or masses. Extremities: Normal skin color and turgor. No cyanosis, rash, ulceration, clubbing, or edema. Radial and pedal pulses are 2/4 bilaterally. Neurological: No focal deficits. Strength and sensation are grossly intact. Results CBC & Chem 7: 12/12/18 07:50 12/12/18 07:50 Labs: Abnormal Lab Results - Last 24 Hours (Table) 12/11/18 12/11/18 12/11/18 Range/Units 08:40 08:40 14:00 RBC (3.80-5.40) m/uL Hgb (11.4-16.0) gm/dL Hct (34.0-46.0) % RDW 21.6 H (11.5-15.5) % Potassium 3.3 L (3.5-5.1) mmol/L Chloride (98-107) mmol/L BUN (7-17) mg/dL Calcium (8.4-10.2) mg/dL AST 59 H (14-36) U/L Albumin 3.3 L (3.5-5.0) g/dL Amylase <30 L (30-110) U/L Urine Appearance Cloudy H (Clear) Urine Protein Trace H (Negative) Urine Blood Trace H (Negative) Ur Leukocyte Esterase Moderate H (Negative) Urine WBC 47 H (0-5) /hpf Urine Bacteria Rare H (None) /hpf Urine Mucus Rare H (None) /hpf 12/12/18 12/12/18 Range/Units 07:50 07:50 RBC 3.33 L (3.80-5.40) m/uL Hgb 10.2 L (11.4-16.0) gm/dL Hct 32.6 L (34.0-46.0) % RDW 21.8 H (11.5-15.5) % Potassium 2.3 L* (3.5-5.1) mmol/L Chloride 113 H (98-107) mmol/L BUN 6 L (7-17) mg/dL Calcium 7.7 L (8.4-10.2) mg/dL AST (14-36) U/L Albumin (3.5-5.0) g/dL Amylase (30-110) U/L Urine Appearance (Clear) Urine Protein (Negative) Urine Blood (Negative) Ur Leukocyte Esterase (Negative) Urine WBC (0-5) /hpf Urine Bacteria (None) /hpf Urine Mucus (None) /hpf CT scan - abdomen: report reviewed (Dr. Sue) Assessment and Plan (1) Nausea & vomiting Narrative/Plan: 58-year-old female presents with persistent nausea vomiting mild abdominal pain decreased appetite 2 months with history of daily alcohol consumption diabetes. Possible exacerbation of gastroparesis underlying gastritis esophagitis fungal infections cannot be excluded. CT abdomen and pelvis reported hepatic steatosis right hemicolon colitis cannot be excluded. Current Visit: Yes Status: Acute Code(s): R11.2 - NAUSEA WITH VOMITING, UNSPECIFIED SNOMED Code(s): 43360285 (2) Daily consumption of alcohol Current Visit: Yes Status: Acute Code(s): Z78.9 - OTHER SPECIFIED HEALTH STATUS SNOMED Code(s): 281804199 (3) Hypokalemia Current Visit: Yes Status: Acute Code(s): E87.6 - HYPOKALEMIA SNOMED Code( s): 82024455 Plan: 1. Correction of potassium. Patient is receiving IV antibiotics for possible colitis per CT. Presently no diarrhea. We'll proceed with EGD evaluation tomorrow. Light diet as tolerated. Antinausea medications. GI prophylaxis. We'll follow with you. The adhesive sprayer has discussed the risks, benefits and alternative therapies for the above-mentioned procedure and for both sedation/analgesia as well as necessary blood product administration, if indicated, as they pertain to this patient. The patient has indicated understanding and acceptance of the risks and procedures discussed. Thank you for this kind referral and the opportunity to participate in the care of your patient. This consultation was discussed with Dr. Sue. The impression and plan of care have been directed as dictated.
[2018-12-12] MEDS: POTASSIUM CHLORIDE 20 MEQ in WATER FOR INJECTION 1 100ML.BAG IVPB SCH ×2 (09:44→12:44)
[2018-12-12 12:35] LABS: Glucose,Whole Blood 113 mg/dL (75-99)
[2018-12-12 14:43] VITALS: BMI 20.2
--- NOTE | 2018-12-12 14:49 | P.PN ---
Subjective Progress Note Date: 12/12/18 Principal diagnosis: nausea and vomiting, dizziness Patient seen and examined. No acute events overnight. Patient continues to complain of dizziness, described as room spinning sensation. Patient reports that bright lights worsen or dizziness. Dizziness is improved by closing her eyes and resting in a dark room. Patient continues to complain of nausea but no vomiting. She denies any cough, shortness of breath or palpitations. Objective - Vital Signs Vital signs: Vital Signs Temp 98.3 F 12/12/18 06:03 Pulse 70 12/12/18 06:03 Resp 17 12/12/18 06:03 BP 95/59 12/12/18 06:03 Pulse Ox 93 L 12/12/18 06:03 Intake & Output 12/11/18 12/12/18 12/12/18 18:59 06:59 18:59 Weight 51.71 kg Other: # Voids 3 - Exam General: [non toxic], [no distress], [appears at stated age] Derm: [warm], [dry] Head: [atraumatic], [normocephalic], [symmetric] Eyes: [EOMI], [no lid lag], [anicteric sclera] Mouth: [no lip lesion], [mucus membranes moist] Cardiovascular: [S1S2 reg], [no murmur], [positive DP pulse bilateral] Lungs: [CTA bilateral], [no rhonchi, no rales] , [no accessory muscle use] Abdominal: [soft], [no guarding], [no appreciable organomegaly] Ext: [no gross muscle atrophy], [no edema], [right lower extremity amputation] Neuro: [no focal neuro deficits] Psych: [Alert], [oriented], [appropriate affect] - Labs CBC & Chem 7: 12/12/18 07:50 12/12/18 07:50 Labs: Abnormal Lab Results - Last 24 Hours (Table) 12/12/18 12/12/18 12/12/18 Range/Units 07:50 07:50 12:18 RBC 3.33 L (3.80-5.40) m/uL Hgb 10.2 L (11.4-16.0) gm/dL Hct 32.6 L (34.0-46.0) % RDW 21.8 H (11.5-15.5) % Potassium 2.3 L* (3.5-5.1) mmol/L Chloride 113 H (98-107) mmol/L BUN 6 L (7-17) mg/dL POC Glucose (mg/dL) 113 H (75-99) mg/dL Calcium 7.7 L (8.4-10.2) mg/dL Assessment and Plan Assessment: Assessment and Plan 1. Colitis 2. Hypokalemia 3. Dizziness 4. Rheumatoid arthritis 5. Peripheral neuropathy 6. Diabetes Mellitus 1. As seen on CT. Lipase and amylase is within normal limits. Urinalysis is dirty. Patient is afebrile with no leukocytosis, lactic acid within normal limits. We will start the patient on IV levofloxacin and Flagyl by mouth. Zofran as needed for nausea and vomiting. Start Protonix 40 mg IV twice a day. Pain control with Tylenol, morphine as needed. Clear liquid diet and advance. Gastroenterology consulted, EGD tomorrow. 2. Likely secondary to colitis. Replaced via by mouth and IV. 3. Possibly orthostatic due to poor oral intake. Continue normal saline at 125 mL an hour. Fall precautions. Will obtain orthostats today. 4. Takes methotrexate every . Follow-up with rheumatology in the outpatient setting. 5. Stable. Resume gabapentin 600 mg by mouth 3 times a day. 6. A1c 6.6 in 11/30/2018. POC glucose 113. Start insulin sliding scale. Regular Accu-Cheks. Hypoglycemic precautions. Patient being treated for colitis, IV antibiotics. Gastroenterology on consult , EGD tomorrow.
[2018-12-12] MEDS: LEVOFLOXACIN 750MG-D5W PMX 750 MG in DEXTROSE/WATER 1 150ML.BAG IVPB SCH (17:02)
[2018-12-12 17:06] LABS: Glucose,Whole Blood 139 mg/dL (75-99)
[2018-12-12 18:21] LABS: Anion Gap 4 mmol/L; Blood Urea Nitrogen 5 mg/dL (7-17); Calcium 8.4 mg/dL (8.4-10.2); Carbon Dioxide 21 mmol/L (22-30); Chloride 115 mmol/L (98-107); Glucose 155 mg/dL (74-99); Potassium 3.5 mmol/L (3.5-5.1); Sodium 140 mmol/L (137-145)
[2018-12-12] MEDS ORDERED: Potassium Replacement Protocol 1 EACH MISC MISCELLANE PRN (18:54)
[2018-12-12 20:25] LABS: Glucose,Whole Blood 138 mg/dL (75-99)
[2018-12-12] MEDS: TEMAZEPAM 15 MG CAP PO SCH (22:20)
[2018-12-12] MEDS: POTASSIUM CHLORIDE ER 20 MEQ TAB.ER PO SCH (22:20)
[2018-12-13] MEDS: POTASSIUM CHLORIDE ER 20 MEQ TAB.ER PO SCH (00:24)
[2018-12-13] MEDS: SODIUM CHLORIDE 0.9% 1,000 ML IV SCH ×2 (00:25→07:30)
[2018-12-13] MEDS ORDERED: LIDOCAINE 1% 20 ML VIAL (10MG/ML) FOR IV START INTRADERMA PRN (06:12)
[2018-12-13] MEDS: LACTATED RINGERS 1,000 ML IV SCH (07:29)
[2018-12-13] MEDS: INSULIN ASPART 100 UNIT/ML 1 ML 10 ML VIAL SQ SCH ×3 (07:30→17:42)
[2018-12-13 07:52] LABS: Glucose,Whole Blood 76 mg/dL (75-99)
[2018-12-13] MEDS: metroNIDAZOLE 500 MG TAB PO SCH ×3 (08:55→20:33)
[2018-12-13] MEDS: PANTOPRAZOLE 40 MG/10 ML VIAL IVP SCH (08:55)
[2018-12-13] MEDS: GABAPENTIN 300 MG CAP PO SCH ×3 (08:56→20:33)
[2018-12-13 11:29] LABS: Glucose,Whole Blood 120 mg/dL (75-99)
[2018-12-13 11:57] LABS: ALT 30 U/L (9-52); AST 20 U/L (14-36); Albumin 1.9 g/dL (3.5-5.0); Alkaline Phosphatase 76 U/L (38-126); Anion Gap 0 mmol/L; Blood Urea Nitrogen 3 mg/dL (7-17); Carbon Dioxide 20 mmol/L (22-30); Chloride 121 mmol/L (98-107); Glucose 120 mg/dL (74-99); Potassium 3.5 mmol/L (3.5-5.1); Sodium 141 mmol/L (137-145); Total Bilirubin 0.3 mg/dL (0.2-1.3); Total Protein 4.2 g/dL (6.3-8.2)
[2018-12-13] MEDS ORDERED: IV FLUID CONTINUATION 450 ML IV ONE ×2 (12:03)
[2018-12-13] MEDS ORDERED: LIDOCAINE 1% INJ 10MG/ML (20 ML MDV) ONE (12:07)
[2018-12-13] MEDS ORDERED: PROPOFOL 10 MG/ML 20 ML VIAL IV ONE (12:07)
--- NOTE | 2018-12-13 12:39 | P.PCN ---
Date of Procedure: 12/13/18 Description of Procedure: BRIEF HISTORY: 58-year-old female with a past medical history of peripheral neuropathy right BKA, GERD, hypertension, RA, diabetes, depression admitted with reports of mild abdominal discomfort pain intractable nausea vomiting unintentional weight loss since . Present weight 52 kg she was 53 kg 6 months ago 13 months ago she was between 61 and 68 kg. denies diarrhea or constipation. Receiving IV antibiotics. Denies hematemesis hematochezia melena. No fever chills. No diarrhea. CT abdomen and pelvis reported wall thickening right hemicolon possible colitis. Hepatic steatosis. Colonoscopy to her memory a few years ago. Polyps removed. No recent EGD. She presently smoke cigarettes. Drinks rum and Coke daily sometimes every other day for many years. No excessive usage of aspirin or NSAIDs. No recent travels. No changes in medications.. PROCEDURE PERFORMED: Esophagogastroduodenoscopy with biopsy. PREOPERATIVE DIAGNOSIS: Nausea and vomiting, unintentional weight loss. ESTIMATED BLOOD LOSS: Minimal. IV sedation per anesthesia. PROCEDURE: After informed consent was obtained, the patient was brought into the endoscopy unit. IV sedation was administered by Anesthesia under continuous monitoring. Initially the Olympus GIF-190 video endoscope was inserted into the mouth. Esophagus intubated without any difficulty. It was gradually advanced into the stomach and duodenum and carefully examined. The bulb was significant for moderate duodenitis and the second part of the duodenum appeared normal, with duodenal biopsies taken. The scope at this time was withdrawn to the stomach, adequately insufflated with air, and upon careful examination, mucosa of the antrum, body, cardia and the fundus appeared normal except for some mild scattered erythema in the antrum and body which was biopsied. The scope was then withdrawn into the esophagus. The GE junction was located at 37 cm from the incisors. The esophagus appeared grossly normal with only grade a esophagitis and the distal esophagus which was biopsied. The patient tolerated the procedure well IMPRESSION: 1. LA grade a esophagitis, biopsied. 2. Mild gastritis in the antrum and body, biopsied. 3. Moderate duodenitis, biopsied. RECOMMENDATIONS: The findings of this examination were discussed with the patient and her daughter. Okay for full liquid diet, advance as tolerated. Continue tight glycemic control. Consideration for ultrasound abdomen with evaluation of vasculature if symptoms persist given known history of peripheral vascular disease to rule out chronic mesenteric ischemia. Await pathology from biopsies. Continue PPI therapy.
[2018-12-13] MEDS ORDERED: MECLIZINE 12.5 MG TAB PO PRN (16:20)
--- NOTE | 2018-12-13 16:21 | P.PN ---
Subjective Progress Note Date: 12/13/18 Principal diagnosis: Colitis, nausea vomiting Patient was seen and examined. No acute events overnight. Underwent EGD, diagnosed with gastritis, duodenitis and esophagitis. She's been placed on full liquid diet and advanced as tolerated. Patient continues to complain of nausea but no vomiting. She has not tolerated a diet since admission. She denies any abdominal pain, chest pain, shortness of breath or palpitations. Patient complains of dizziness, described as room spinning only when exposed to bright lights. She denies any photophobia or blurry vision. She does wear reading glasses. She has not had her vision checked in many years. Objective - Vital Signs Vital signs: Vital Signs Temp 98.1 F 12/13/18 14:27 Pulse 84 12/13/18 14:27 Resp 16 12/13/18 14:27 BP 130/89 12/13/18 14:27 Pulse Ox 98 12/13/18 14:27 Intake & Output 12/12/18 12/13/18 12/13/18 18:59 06:59 18:59 Intake Total 1200 250 800 Balance 1200 250 800 Weight 51.71 kg Intake: IV 800 Sodium Chloride 0.9% 1, 700 000 ml @ 125 mls/hr IV . Q8H [facility] Rx#:[id number] Oral 1200 250 Other: Voiding Method Bedside Commode Bedpan # Voids 1 1 - Exam General: [non toxic], [no distress], [appears at stated age] Derm: [warm], [dry] Head: [atraumatic], [normocephalic], [symmetric] Eyes: [EOMI], [no lid lag], [anicteric sclera] Mouth: [no lip lesion], [mucus membranes moist] Cardiovascular: [S1S2 reg], [no murmur], [positive DP pulse bilateral] Lungs: [CTA bilateral], [no rhonchi, no rales] , [no accessory muscle use] Abdominal: [soft], [no guarding], [no appreciable organomegaly] Ext: [no gross muscle atrophy], [no edema], [right lower extremity amputation] Neuro: [no focal neuro deficits] Psych: [Alert], [oriented], [appropriate affect] - Labs CBC & Chem 7: 12/12/18 07:50 12/13/18 11:16 Labs: Abnormal Lab Results - Last 24 Hours (Table) 12/12/18 12/12/18 12/12/18 Range/Units 17:03 18:01 20:18 Chloride 115 H (98-107) mmol/L Carbon Dioxide 21 L (22-30) mmol/L BUN 5 L (7-17) mg/dL Glucose 155 H (74-99) mg/dL POC Glucose (mg/dL) 139 H 138 H (75-99) mg/dL Calcium (8.4-10.2) mg/dL Total Protein (6.3-8.2) g/dL Albumin (3.5-5.0) g/dL 12/13/18 12/13/18 Range/Units 11:16 11:24 Chloride 121 H (98-107) mmol/L Carbon Dioxide 20 L (22-30) mmol/L BUN 3 L (7-17) mg/dL Glucose 120 H (74-99) mg/dL POC Glucose (mg/dL) 120 H (75-99) mg/dL Calcium 8.0 L (8.4-10.2) mg/dL Total Protein 4.2 L (6.3-8.2) g/dL Albumin 1.9 L (3.5-5.0) g/dL Assessment and Plan Assessment: Assessment and Plan 1. Colitis 2. Dizziness 3. Rheumatoid arthritis 4. Peripheral neuropathy 5. Diabetes Mellitus 1. As seen on CT. Lipase and amylase is within normal limits. Urinalysis is dirty. Patient is afebrile with no leukocytosis, lactic acid within normal limits. We will start the patient on IV levofloxacin and Flagyl by mouth. Zofran as needed for nausea and vomiting. Start Protonix 40 mg IV twice a day. Pain control with Tylenol, morphine as needed. Fall liquid diet and advance. EGD done, shows gastritis, duodenitis and esophagitis. Will follow gastroenterology recommendations. 2. Orthostatic negative. Patient has EF of 50-55% with mild LVH as seen on echocardiogram April 2018. Possibly related to vision, vertiginous in nature. Continue normal saline at 125 mL an hour. Trial of meclizine. Fall precautions. She will need to see an logger in the outpatient setting. 3. Takes methotrexate every . Follow-up with rheumatology in the outpatient setting. 4. Stable. Resume gabapentin 600 mg by mouth 3 times a day. 5. A1c 6.6 in 11/30/2018. POC glucose 120. Start insulin sliding scale. Regular Accu-Cheks. Hypoglycemic precautions. Patient being treated for colitis, IV antibiotics. Unable to tolerate by mouth. Pending clinical improvement. Pending PT eval. Possible DC tomorrow.
[2018-12-13 17:25] LABS: Glucose,Whole Blood 106 mg/dL (75-99)
[2018-12-13] MEDS: LEVOFLOXACIN 750MG-D5W PMX 750 MG in DEXTROSE/WATER 1 150ML.BAG IVPB SCH (17:48)
[2018-12-13] MEDS: ONDANSETRON 4 MG/2 ML VIAL IVP PRN (18:19)
[2018-12-13] MEDS: PANTOPRAZOLE 40 MG TABLET PO SCH (20:33)
[2018-12-13] MEDS: TEMAZEPAM 15 MG CAP PO SCH (20:33)
[2018-12-13 21:07] LABS: Glucose,Whole Blood 223 mg/dL (75-99)
[2018-12-14] MEDS: LACTATED RINGERS 1,000 ML IV SCH (05:01)
[2018-12-14 07:14] LABS: Glucose,Whole Blood 86 mg/dL (75-99)
[2018-12-14] MEDS: INSULIN ASPART 100 UNIT/ML 1 ML 10 ML VIAL SQ SCH ×3 (07:50→17:39)
[2018-12-14] MEDS: PANTOPRAZOLE 40 MG TABLET PO SCH ×2 (07:53→21:29)
[2018-12-14] MEDS: GABAPENTIN 300 MG CAP PO SCH ×3 (07:53→21:29)
[2018-12-14] MEDS: metroNIDAZOLE 500 MG TAB PO SCH ×3 (07:53→21:29)
[2018-12-14 12:27] LABS: Glucose,Whole Blood 87 mg/dL (75-99)
--- NOTE | 2018-12-14 12:29 | P.PN ---
Subjective Progress Note Date: 12/14/18 Principal diagnosis: Abdominal pain nausea vomiting Status post EGD yesterday no evidence of peptic ulcer disease or obvious fungal infections. Nausea vomiting abdominal pain improved. Tolerating diet. Walking in the hallway with physical therapy. Objective - Vital Signs Vital signs: Vital Signs Temp 97.6 F 12/14/18 07:00 Pulse 75 12/14/18 07:00 Resp 18 12/14/18 08:00 BP 135/90 12/14/18 07:00 Pulse Ox 99 12/14/18 07:00 Intake & Output 12/13/18 12/14/18 12/14/18 18:59 06:59 18:59 Intake Total 800 850 Balance 800 850 Intake: IV 800 Sodium Chloride 0.9% 1, 700 000 ml @ 125 mls/hr IV . Q8H [facility] Rx#:[id number] Oral 850 Other: Voiding Method Bedside Commode Bedpan Bedpan # Voids 3 # Bowel Movements 1 - Exam General appearance: The patient is alert, oriented, in no acute distress. HET: Head is normocephalic and atraumatic. Pupils are equal and reactive. Oropharynx is clear without lesions. Neck: Supple without lymphadenopathy. Trachea midline. Heart: S1 S2. Regular rate and rhythm. Lungs: No crackles or wheezes are heard. Abdomen: Soft, nontender, nondistended with bowel sounds. No peritoneal signs. No palpable organomegaly or masses. - Labs CBC & Chem 7: 12/12/18 07:50 12/13/18 11:16 Labs: Abnormal Lab Results - Last 24 Hours (Table) 12/13/18 12/13/18 Range/Units 17:05 20:41 POC Glucose (mg/dL) 106 H 223 H (75-99) mg/dL Assessment and Plan (1) Nausea & vomiting Narrative/Plan: Status post EGD no evidence of peptic ulcer disease or obvious fungal infections biopsies pending Current Visit: Yes Status: Acute Code(s): R11.2 - NAUSEA WITH VOMITING, UNSPECIFIED SNOMED Code(s): 97873987 (2) Daily consumption of alcohol Current Visit: Yes Status: Acute Code(s): Z78.9 - OTHER SPECIFIED HEALTH STATUS SNOMED Code(s): 732229540 (3) Hypokalemia Current Visit: Yes Status: Acute Code(s): E87.6 - HYPOKALEMIA SNOMED Code( s): 64829085 Plan: 1. Continue with medical therapy GI prophylaxis. Diet as tolerated. Assessment and plan a care discussed with Dr. Sue
--- NOTE | 2018-12-14 12:57 | P.PN ---
Subjective Progress Note Date: 12/14/18 Principal diagnosis: Vertigo Patient was seen and examined. No acute events overnight. Patient continues to complain of dizziness, vertiginous in nature. States that she was able to walk up and down the hallway but is unable to focus on objects. She continues to complain that bright lights bother her vision. She denies any abdominal pain , diarrhea or constipation, fever or chills. She endorses one episode of emesis yesterday. Objective - Vital Signs Vital signs: Vital Signs Temp 97.6 F 12/14/18 07:00 Pulse 75 12/14/18 07:00 Resp 18 12/14/18 08:00 BP 135/90 12/14/18 07:00 Pulse Ox 99 12/14/18 07:00 Intake & Output 12/13/18 12/14/18 12/14/18 18:59 06:59 18:59 Intake Total 800 850 Balance 800 850 Intake: IV 800 Sodium Chloride 0.9% 1, 700 000 ml @ 125 mls/hr IV . Q8H [facility] Rx#:[id number] Oral 850 Other: Voiding Method Bedside Commode Bedpan Bedpan # Voids 3 # Bowel Movements 1 - Exam General: [non toxic], [no distress], [appears at stated age] Derm: [warm], [dry] Head: [atraumatic], [normocephalic], [symmetric] Eyes: [EOMI], [no lid lag], [anicteric sclera], [nystagmus bilaterally, lateral] Mouth: [no lip lesion], [mucus membranes moist] Cardiovascular: [S1S2 reg], [no murmur], [positive DP pulse bilateral] Lungs: [CTA bilateral], [no rhonchi, no rales] , [no accessory muscle use] Abdominal: [soft], [no guarding], [no appreciable organomegaly] Ext: [no gross muscle atrophy], [no edema], [right lower extremity amputation] Neuro: [no focal neuro deficits] Psych: [Alert], [oriented], [appropriate affect] - Labs CBC & Chem 7: 12/12/18 07:50 12/13/18 11:16 Labs: Abnormal Lab Results - Last 24 Hours (Table) 12/13/18 12/13/18 Range/Units 17:05 20:41 POC Glucose (mg/dL) 106 H 223 H (75-99) mg/dL Assessment and Plan Assessment: Assessment and Plan 1. Dizziness 2. Colitis 3. Rheumatoid arthritis 4. Peripheral neuropathy 5. Diabetes Mellitus 1. Orthostatic negative. Patient has EF of 50-55% with mild LVH as seen on echocardiogram April 2018. Patient continues to have profound vertigo. Trial of meclizine did not help yesterday. Fall precautions. I believe that the patient will need to be evaluated by a neurologist for possible CVA workup and workup of the vertebrobasilar system. I have called [facility] Coron[facility] and left a call back number regarding transfer of patient. 2. As seen on CT. Lipase and amylase is within normal limits. Urinalysis is dirty. Patient is afebrile with no leukocytosis, lactic acid within normal limits. We will start the patient on IV levofloxacin and Flagyl by mouth. Zofran as needed for nausea and vomiting. Start Protonix 40 mg IV twice a day. Pain control with Tylenol, morphine as needed. Fall liquid diet and advance. EGD done, shows gastritis, duodenitis and esophagitis. Will follow gastroenterology recommendations. 3. Takes methotrexate every . Follow-up with rheumatology in the outpatient setting. 4. Stable. Resume gabapentin 600 mg by mouth 3 times a day. 5. A1c 6.6 in 11/30/2018. POC glucose 87. Start insulin sliding scale. Regular Accu-Cheks. Hypoglycemic precautions. Patient being treated for colitis, IV antibiotics. She has been unable to work with PT due to her dizziness. She will need neurology evaluation and workup area will follow-up with Sean Coronado regarding transfer patient. If she is unable to be transferred today, we will obtain MRI brain along with MRA head and neck.
[2018-12-14] MEDS: ONDANSETRON 4 MG/2 ML VIAL IVP PRN (14:09)
[2018-12-14 16:54] LABS: Glucose,Whole Blood 170 mg/dL (75-99)
[2018-12-14] MEDS: ONDANSETRON 4 MG/2 ML VIAL IVP SCH (17:03)
[2018-12-14] MEDS ORDERED: LEVOFLOXACIN 750 MG TAB PO SCH (18:00)
[2018-12-14 21:18] LABS: Glucose,Whole Blood 98 mg/dL (75-99)
[2018-12-14] MEDS: TEMAZEPAM 15 MG CAP PO SCH (21:29)
--- NOTE | 2018-12-14 21:39 | MR ---
EXAMINATION TYPE: MR brain wo con DATE OF EXAM: 12/14/2018 COMPARISON: HISTORY: Vertigo, N & V, abd pain Standard multiplanar, multisequence MRI departmental protocol Multiplanar, multisequence images of the brain were acquired. Diffusion weighted imaging was performe d. FINDINGS: Ventricles have normal size. There is no mass effect nor midline shift. There is no sign of intracranial hemorrhage. Brainstem is intact. Cerebellum is intact. There is no evidence of a wagon driver salesperson ior fossa mass. There is a 4 mm focus of slight increased signal in the left cerebellar hemisphere co rtex. There is no cerebellopontine angle mass. Corpus callosum appears normal. Sella turcica is logan l. There is a 2 mm focus of increased signal at the rodney-white matter junction left parietal lobe of doubtful significance. There is a single 5 mm focus of increased signal in the white matter of the insula right temporal lob e. IMPRESSION: There are a few small white matter high signal foci of doubtful significance. Otherwise negative exam . No evidence of cortical infarct.
--- NOTE | 2018-12-14 21:52 | MR ---
EXAMINATION TYPE: MR MRA/MRV head wo con DATE OF EXAM: 12/14/2018 COMPARISON: None HISTORY: Vertigo, N & V, abd pain TECHNIQUE: Time of flight images focusing on the [place] of [place] were performed without contrast.. 2-D and 3-D postprocessing imaging is performed. FINDINGS: There is arterial flow in the anterior middle and posterior cerebral arteries. There is art erial flow in the vertebrobasilar artery system. There is arterial flow in the distal internal caroti d arteries bilaterally. Posterior cerebral arteries fill from the basilar artery. There is no evidenc e of hemodynamic stenosis. There is a small bulge on the posterior wall of the proximal right middle cerebral artery that could be a sessile 3 x 2 mm aneurysm. There is normal appearance of the sagittal and transverse and sigmoid sinuses of the brain. There is no evidence of venous thrombosis. IMPRESSION: Possible 3 x 2 mm sessile aneurysm of the posterior wall of the proximal right middle cer ebral artery. Otherwise Negative MR angiogram of the brain. Negative MR venogram of the brain.
[2018-12-15] MEDS: ONDANSETRON 4 MG/2 ML VIAL IVP SCH ×2 (01:43→10:03)
[2018-12-15 07:19] LABS: Glucose,Whole Blood 77 mg/dL (75-99)
[2018-12-15 09:43] VITALS: BP 98/66; PULSE 96; RESP 20; TEMP 98.5
[2018-12-15] MEDS: INSULIN ASPART 100 UNIT/ML 1 ML 10 ML VIAL SQ SCH ×2 (10:01→11:49)
[2018-12-15] MEDS: LACTATED RINGERS 1,000 ML IV SCH (10:03)
[2018-12-15] MEDS: PANTOPRAZOLE 40 MG TABLET PO SCH (10:08)
[2018-12-15] MEDS: GABAPENTIN 300 MG CAP PO SCH (10:08)
[2018-12-15] MEDS: metroNIDAZOLE 500 MG TAB PO SCH (10:08)
[2018-12-15] MEDS ORDERED: DIAZEPAM 2 MG TAB PO STA (10:15)
--- NOTE | 2018-12-15 10:22 | P.PN ---
Subjective Progress Note Date: 12/15/18 Principal diagnosis: Dizziness I attempted to call [facility] yesterday and was able to speak to an attending physician 2:30 PM. We discussed the condition of the patient, regarding her intractable nausea along with vertiginous symptoms and the findings of nystagmus on physical exam. I was instructed to image her brain and call back if there are any abnormal findings. MRI of the brain and MRA of the head and neck were ordered to rule out vertebrobasilar causes of vertigo and CVA. MRI and MRA showed no acute CVA, no thrombosis and possible 2 x 3 mm aneurysm in the R MCA. This would likely not be the cause of her dizziness. Patient was seen and examined this morning. No acute events overnight. Patient continues to complain of vertigo, with movement of her head. Patient states that the best relief from her dizziness is to keep her head still. On further questioning, patient complains of decreased hearing on the left side. She states that her hearing sounds muffled. She denies any ear pain or ear discharge. She does endorse previous ear infections, last one 1 year ago in the left ear. She denies any upper respiratory infection or cervical neck pain. She denies any numbness weakness or tingling of her extremities. Dizziness is acutely worsened with turning her head to the left side. Dizziness last for 1-2 minutes. Objective - Vital Signs Vital signs: Vital Signs Temp 98.3 F 12/14/18 23:38 Pulse 91 12/14/18 23:38 Resp 18 12/14/18 23:38 BP 89/60 12/14/18 23:38 Pulse Ox 93 L 12/14/18 23:38 Intake & Output 12/14/18 12/15/18 12/15/18 18:59 06:59 18:59 Weight 51.71 kg Other: Voiding Method Bedpan # Voids 1 1 - Exam General: [non toxic], [no distress], [appears at stated age] Derm: [warm], [dry] Head: [atraumatic], [normocephalic], [symmetric] Eyes: [EOMI], [no lid lag], [anicteric sclera], [nystagmus bilaterally, lateral] Mouth: [no lip lesion], [mucus membranes moist] Cardiovascular: [S1S2 reg], [no murmur], [positive DP pulse bilateral] Lungs: [CTA bilateral], [no rhonchi, no rales] , [no accessory muscle use] Abdominal: [soft], [no guarding], [no appreciable organomegaly] Ext: [no gross muscle atrophy], [no edema], [right lower extremity amputation] Neuro: [no focal neuro deficits] Psych: [Alert], [oriented], [appropriate affect] - Labs CBC & Chem 7: 12/12/18 07:50 12/13/18 11:16 Labs: Abnormal Lab Results - Last 24 Hours (Table) 12/14/18 Range/Units 16:52 POC Glucose (mg/dL) 170 H (75-99) mg/dL Assessment and Plan Assessment: Assessment and Plan 1. Vertigo 2. Colitis 3. Rheumatoid arthritis 4. Hyperchloremic metabolic acidosis 5. Peripheral neuropathy 6. Diabetes Mellitus 1. Case discussed with attending at [facility], recommended to obtain neuroimaging and hold transfer. MRI of the brain shows no acute CVA. MRA of the head and neck shows a 2-3 mm possible aneurysm in the right MCA. BPPV vs. vestibular neuritis vs. Menieres is the working diagnosis . Orthostatic negative. Patient has EF of 50-55% with mild LVH as seen on echocardiogram April 2018. Fall precautions. Will start the patient on a trial of Valium 2 mg by mouth for treatment of possible BPPV. Continue meclizine and Zofran for nausea and vomiting. Will check orthostatics again. Will follow ENT consult. 2. As seen on CT. Lipase and amylase is within normal limits. Urinalysis is dirty. Patient is afebrile with no leukocytosis, lactic acid within normal limits. We will start the patient on IV levofloxacin and Flagyl by mouth. Zofran as needed for nausea and vomiting. Start Protonix 40 mg IV twice a day. Pain control with Tylenol, morphine as needed. Full liquid diet and advance. EGD done, shows gastritis, duodenitis and esophagitis. Will follow gastroenterology recommendations. 3. Takes methotrexate every . Did not get her dose last week, will be given today. Follow-up with rheumatology in the outpatient setting. 4. Likely secondary to confused IVF. Will discontinue and encourage by mouth hydration. Daily BMP. 5. Stable. Resume gabapentin 600 mg by mouth 3 times a day. 6. A1c 6.6 in 11/30/2018. POC glucose 77. Start insulin sliding scale. Regular Accu-Cheks. Hypoglycemic precautions. Patient being treated for colitis, IV antibiotics. Patient continues to work with physical therapy. MRI and MRA excludes CVA as a cause of vertigo. We will consult ENT for evaluation of peripheral vertigo, trial of Valium. Pending clinical improvement.
[2018-12-15] MEDS ORDERED: METHOTREXATE SODIUM 2.5 MG TAB PO SCH (11:00)
[2018-12-15 11:43] LABS: Glucose,Whole Blood 121 mg/dL (75-99)
--- NOTE | 2018-12-15 12:33 | P.DS ---
Providers Date of admission: 12/11/18 15:11 Expected date of discharge: 12/15/18 Attending physician: Rekha Klein MD Consults: 12/11/18 15:12 Consult Physician Routine Consulting Provider: Lavinia Weaver Consult Reason/Comments: The bowel pain, nausea vomiting Do you want consulting provider notified?: Yes 12/15/18 10:18 Consult Physician Stat Consulting Provider: Len Knight Consult Reason/Comments: Vertigo w/ nystagmus, CVA ruled out, L hearing Do you want consulting provider notified?: Yes Primary care physician: [facility] Course: 58 year old female with PMH of rheumatoid arthritis, hypertension presents to the ED for nausea and vomiting. Patient reports that she has been nauseous and throwing up multiple times daily over the past few weeks. This problem happens any time she eats or drinks anything. Patient reports not eating anything since . She also reports a 75 pound weight loss over the past year, 20 pounds over the last month. She denies eating foods out of the ordinary. She denies any sick contacts. Patient also complains of lower abdominal pain, ongoing for many months. Pain is intermittent and is not related to her meals. Patient is unable to effectively describe her pain. Patient denies any dysuria or hematuria. She denies any diarrhea but endorses constipation, last bowel movement was last Monday. Patient denies any traveling, lower extremity edema, fever or chills, cough, chest pain, shortness of breath, palpitations. Patient also complains of dizziness. She describes the dizziness as a "room spinning sensation". She denies any hearing loss/tinnitus or any changes with position. She denies any upper respiratory infection. In the ED, CBC was unremarkable. CMP showed potassium of 3.3, AST of 59. Amylase and lipase was normal. Urinalysis was dirty. Abdominal and chest x- ray was unremarkable for any acute process. CT abdomen and pelvis showed persistent wall thickening of the right hemicolon, may reflect colitis. Patient is admitted for treatment of colitis, IV antibiotics and inability to tolerate by mouth, gastroenterology on consult. With regard to her colitis, patient was afebrile with no leukocytosis. Her lactic acid was within normal limits. Amylase and lipase is within normal limits. Urinalysis is dirty. She was given Tylenol and morphine as needed for pain. She was started on a full liquid diet and advance as tolerated. Gastroenterology was consulted and recommended EGD. EGD showed gastritis, duodenitis and esophagitis. She was continued on IV levofloxacin and given Flagyl by mouth. She was continued on Protonix IV. She was given Zofran for nausea or vomiting. Patient continued to feel dizzy, vertiginous in nature with nausea and vomiting throughout her hospitalization. Her orthostatic vitals were negative. There was initially some concern for central cause of vertigo. She had a nystagmus on physical exam. I contacted [facility] on 12/14/2018 regarding possible transfer for neurological evaluation. I was told to obtain imaging of the brain and call back if it is positive for something. 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 Patient was started on a trial of meclizine and Valium for treatment of benign positional vertigo. [facility] was contacted on 2018 regarding the patient's neurological status. [facility] has graciously accepted the patient for neurological evaluation. General: [non toxic], [no distress], [appears at stated age] Derm: [warm], [dry] Head: [atraumatic], [normocephalic], [symmetric] Eyes: [EOMI], [no lid lag], [anicteric sclera], [nystagmus bilaterally, lateral] Mouth: [no lip lesion], [mucus membranes moist] Cardiovascular: [S1S2 reg], [no murmur], [positive DP pulse bilateral] Lungs: [CTA bilateral], [no rhonchi, no rales] , [no accessory muscle use] Abdominal: [soft], [no guarding], [no appreciable organomegaly] Ext: [no gross muscle atrophy], [no edema], [right lower extremity amputation] Neuro: [no focal neuro deficits] Psych: [Alert], [oriented], [appropriate affect] Assessment and Plan 1. Vertigo 2. Colitis 3. Rheumatoid arthritis 4. Hyperchloremic metabolic acidosis 5. Peripheral neuropathy 6. Diabetes Mellitus 1. Case discussed with attending at [facility], has graciously accepted the patient for transfer. MRI of the brain shows no acute CVA. MRA of the head and neck shows a 2-3 mm possible aneurysm in the right MCA. BPPV vs. vestibular neuritis vs. Menieres is the working diagnosis . Orthostatic negative. Patient has EF of 50-55% with mild LVH as seen on echocardiogram April 2018. Fall precautions. Will start the patient on a trial of Valium 2 mg by mouth for treatment of possible BPPV. Continue meclizine and Zofran for nausea and vomiting. Will check orthostatics again. Will follow ENT consult. 2. As seen on CT. Lipase and amylase is within normal limits. Urinalysis is dirty. Patient is afebrile with no leukocytosis, lactic acid within normal limits. We will continue the patient on IV levofloxacin and Flagyl by mouth. Zofran as needed for nausea and vomiting. Start Protonix 40 mg IV twice a day. Pain control with Tylenol, morphine as needed. Full liquid diet and advance. EGD done, shows gastritis, duodenitis and esophagitis. Will follow gastroenterology recommendations. 3. Takes methotrexate every . Did not get her dose last week, will be given today. Follow-up with rheumatology in the outpatient setting. 4. Likely secondary to confused IVF. Will discontinue and encourage by mouth hydration. Daily BMP. 5. Stable. Resume gabapentin 600 mg by mouth 3 times a day. 6. A1c 6.6 in 11/30/2018. POC glucose 77. Start insulin sliding scale. Regular Accu-Cheks. Hypoglycemic precautions. Patient to be transferred to [facility] for neurological evaluation. Pertinent Studies: KUB Chest x-ray CT abdomen and pelvis MRI/MRA brain Patient Condition at Discharge: Stable Plan - Discharge Summary Discharge Rx Participant: No New Discharge Prescriptions: New Levofloxacin [Levaquin] 750 mg PO DAILY@1800 tab Meclizine [Antivert] 12.5 mg PO TID PRN tab PRN Reason: Vertigo metroNIDAZOLE [Flagyl] 500 mg PO TID tab Continue Omeprazole [PriLOSEC] 20 mg PO DAILY Methotrexate Sodium [Methotrexate] 7.5 mg PO TU Temazepam [Restoril] 15 mg PO HS Gabapentin [Neurontin] 600 mg PO TID Discharge Medication List Omeprazole [PriLOSEC] 20 mg PO DAILY 02/06/16 [History] Methotrexate Sodium [Methotrexate] 7.5 mg PO TU 04/27/18 [History] Gabapentin [Neurontin] 600 mg PO TID 12/11/18 [History] Temazepam [Restoril] 15 mg PO HS 12/11/18 [History] Levofloxacin [Levaquin] 750 mg PO DAILY@1800 tab 12/15/18 [Rx] Meclizine [Antivert] 12.5 mg PO TID PRN tab 12/15/18 [Rx] metroNIDAZOLE [Flagyl] 500 mg PO TID tab 12/15/18 [Rx] Follow up Appointment(s)/Referral(s): Noa Mae MD [Primary Care Provider] - 1-2 days [facility], [NON-STAFF] - Activity/Diet/Wound Care/Special Instructions: Comfort Prosthetics and Orthotics Discharge Disposition: DISCH/TRANS TO A [facility]
== END 2018-12-15 14:13 | disposition short-term general hospital (02) | DRG 392 ==
LOC: EC 07:31 → 3NMEDONC 15:11 → 4MS4W 16:43
PROVIDERS: ADMIT Internal Medicine; ATTEND Internal Medicine
PROC: 0DB98ZX Excision of Duodenum, Via Natural or Artificial Opening Endoscopic, Diagnostic (ICD-10-PCS; principal; 2018-12-13 12:15)
PROC: 0DB78ZX Excision of Stomach, Pylorus, Via Natural or Artificial Opening Endoscopic, Diagnostic (ICD-10-PCS; principal; 2018-12-13 12:15)
PROC: 0DB58ZX Excision of Esophagus, Via Natural or Artificial Opening Endoscopic, Diagnostic (ICD-10-PCS; principal; 2018-12-13 12:15)
DX: K52.9 Noninfective gastroenteritis and colitis, unspecified (principal); E87.2 Acidosis; E11.42 Type 2 diabetes mellitus with diabetic polyneuropathy; E86.0 Dehydration; E87.6 Hypokalemia; F17.210 Nicotine dependence, cigarettes, uncomplicated; H81.10 Benign paroxysmal vertigo, unspecified ear; H81.399 Other peripheral vertigo, unspecified ear; H91.90 Unspecified hearing loss, unspecified ear; I10 Essential (primary) hypertension; I73.00 Raynaud's syndrome without gangrene; K21.0 Gastro-esophageal reflux disease with esophagitis; K29.70 Gastritis, unspecified, without bleeding; K29.80 Duodenitis without bleeding; K59.00 Constipation, unspecified; K76.0 Fatty (change of) liver, not elsewhere classified; L80 Vitiligo; M06.9 Rheumatoid arthritis, unspecified; R62.7 Adult failure to thrive; Z79.899 Other long term (current) drug therapy; Z82.49 Family history of ischemic heart disease and other diseases of the circulatory system; Z83.3 Family history of diabetes mellitus; Z89.511 Acquired absence of right leg below knee; Z96.611 Presence of right artificial shoulder joint; Z79.1 Long term (current) use of non-steroidal anti-inflammatories (NSAID); Z79.891 Long term (current) use of opiate analgesic; F32.9 Major depressive disorder, single episode, unspecified
CPT/HCPCS: 36415; 43239; 70544; 70551; 71046; 74018; 74177; 80048; 80053; 81001; 82150; 82533; 83605; 83690; 83735; 84443; 85025; 88305; 96361; 96365; 96366; 96375; 99285

== ENCOUNTER 2019-07-10 07:38 | Day surgery (SDC) | payer MEDICARE, OTHER ==
[2019-07-09 08:48] VITALS: BMI 26.6
[2019-07-10 08:36] VITALS: RESP 16; TEMP 97.8
[2019-07-10] MEDS: LACTATED RINGERS 1,000 ML IV SCH ×2 (08:36→08:52)
[2019-07-10] MEDS: LIDOCAINE 1% 20 ML VIAL (10MG/ML) FOR IV START INTRADERMA PRN ×2 (08:36→08:52)
[2019-07-10] MEDS ORDERED: PROPOFOL 10 MG/ML 20 ML VIAL IV ONE (09:06)
[2019-07-10] MEDS ORDERED: LIDOCAINE 1% INJ 10MG/ML (20 ML MDV) ONE (09:06)
--- NOTE | 2019-07-10 09:24 | P.PCN ---
Date of Procedure: 07/10/19 Procedure(s) Performed: BRIEF HISTORY: Patient is a 58-year-old pleasant white female, scheduled for an elective colonoscopy as a part of evaluation of prior history of colon polyps. Last colonoscopy was 3 years ago and was noted to have an adenoma. PROCEDURE PERFORMED: Colonoscopy with snare polypectomy PREOPERATIVE DIAGNOSIS: History of colon polyps. IV sedation per Anesthesia. PROCEDURE: After informed consent was obtained, the patient, was brought into the endoscopy unit. IV sedation was administered by Anesthesia under continuous monitoring. Digital rectal examination was normal. Initially the Olympus CF-160 flexible video colonoscope was then inserted in the rectum, gradually advanced into the cecum without any difficulty. Careful examination was performed as the scope was gradually being withdrawn. Ileocecal valve and the appendiceal orifice were visualized and appeared normal. Prep was excellent. Mucosa of the cecum, ascending colon, appeared normal. In the transverse colon there was a 7-8 mm broad-based polyp that was removed by snare polypectomy. Rest of the transverse colon, descending colon, sigmoid colon, and rectum appeared normal. Retroflexion was performed in the rectum and no lesions were seen. The patient tolerated the procedure well. IMPRESSION: 7-8 mm transverse colon polyp status post polypectomy Rest of the colon appeared normal RECOMMENDATIONS: Findings of this examination were discussed with the patient as well as a family. She was advised to follow with the biopsy results.If the biopsy shows an adenoma, she can have a repeat colonoscopy in 5 years.
[2019-07-10 09:46] VITALS: BP 171/79; PULSE 89
== END 2019-07-10 10:17 | disposition home or self-care (01) ==
LOC: ORWHC2ENDO 07:38
PROVIDERS: ATTEND Internal Medicine Gastroenterology
DX: Z12.11 Encounter for screening for malignant neoplasm of colon (principal); Z86.010 Personal history of colon polyps; D12.3 Benign neoplasm of transverse colon; I10 Essential (primary) hypertension; F17.200 Nicotine dependence, unspecified, uncomplicated; K21.9 Gastro-esophageal reflux disease without esophagitis; E11.42 Type 2 diabetes mellitus with diabetic polyneuropathy; Z89.511 Acquired absence of right leg below knee; M06.9 Rheumatoid arthritis, unspecified; Z79.1 Long term (current) use of non-steroidal anti-inflammatories (NSAID); Z79.899 Other long term (current) drug therapy
CPT/HCPCS: 88305; 45385; J2001; J2704

== ENCOUNTER → 2019-12-26 | Outpatient (CLI) | payer MEDICARE, OTHER ==
--- NOTE | 2019-12-26 14:46 | US ---
EXAMINATION TYPE: US venous doppler duplex LE LT DATE OF EXAM: 12/26/2019 2:24 PM COMPARISON: US CLINICAL HISTORY: M79.89 SWELLING OF LT LOWER EXT. Left leg swellling SIDE PERFORMED: Left TECHNIQUE: The lower extremity deep venous system is examined utilizing real time linear array sonog lisandra with graded compression, doppler sonography and color-flow sonography. VESSELS IMAGED: External Iliac Vein (EIV) Common Femoral Vein Deep Femoral Vein Greater Saphenous Vein * Femoral Vein Popliteal Vein Small Saphenous Vein * Proximal Calf Veins (* superficial vessels) Grayscale, color doppler, spectral doppler imaging performed of the deep veins of the left lower extr emity. There is normal flow, compressibility, vascular waveforms. Left Leg: Negative for DVT IMPRESSION: No sonographic evidence of deep venous thrombosis within the left lower extremity.
== END | disposition home or self-care (01) ==
LOC: RADUSWWP 13:57
PROVIDERS: ATTEND Internal Medicine Rheumatology
DX: M79.89 Other specified soft tissue disorders (principal)

== ENCOUNTER → 2020-03-23 | Outpatient (CLI) | payer MEDICARE, OTHER ==
[2020-03-23 11:54] LABS: Anisocytosis Slight; Basophils % (A) 0 %; Eosinophils # (A) 0.1 k/uL (0-0.7); Eosinophils % (A) 1 %; HCT 43.9 % (34.0-46.0); HGB 13.2 gm/dL (11.4-16.0); Hypochromasia Marked; Lymphocytes # (A) 1.5 k/uL (1.0-4.8); Lymphocytes % (A) 15 %; MCHC 30.2 g/dL (31.0-37.0); MCV 92.9 fL (80.0-100.0); Macrocytosis Slight; Mean Platelet Volume 10.3; Monocytes # (A) 0.6 k/uL (0-1.0); Monocytes % (A) 6 %; Neutrophils # (A) 7.7 k/uL (1.3-7.7); Neutrophils % (A) 76 %; Platelet Count 115 k/uL (150-450); RBC 4.72 m/uL (3.80-5.40); RDW 18.8 % (11.5-15.5)
[2020-03-23 18:59] LABS: African American GFR (CKD) 82.3 (60.0-200.0); Albumin 3.4 g/dL (3.80-4.90); Albumin/Globulin Ratio 1.31 (1.60-3.17); Anion Gap 8.7 mmol/L (4.00-12.00); BUN/Creat Ratio 11.11 Ratio (12.00-20.00); Calcium 8.8 mg/dL (8.7-10.3); Carbon Dioxide 25.3 mmol/L (21.6-31.8); Globulin 2.6 g/dL (1.6-3.3); Total Bilirubin 0.8 mg/dL (0.3-1.2)
[2020-03-23 22:56] LABS: Hemoglobin A1C 6.6 % (4.0-6.0)
[2020-03-24 07:39] LABS: Potassium 2.3 mmol/L (3.5-5.5)
== END | disposition home or self-care (01) ==
LOC: LABWHC1 10:30
PROVIDERS: ATTEND Family Medicine
DX: E87.6 Hypokalemia (principal); R63.1 Polydipsia
CPT/HCPCS: 36415; 80053; 83036; 85025

== ENCOUNTER 2020-03-31 15:36 | Inpatient (IN) | payer MEDICARE, OTHER ==
[2020-03-31] MEDS ORDERED: SODIUM CHLORIDE 0.9% 1,000 ML IV STA (15:58)
[2020-03-31] MEDS ORDERED: ONDANSETRON 4 MG/2 ML VIAL IVP STA (15:58)
--- NOTE | 2020-03-31 16:21 | ED ---
General Adult HPI - General Source: patient, RN notes reviewed Mode of arrival: wheelchair Limitations: physical limitation <Alex Ozuna - Last Filed: 03/31/20 19:03> <Zora Castro - Last Filed: 04/03/20 23:52> - General Chief complaint: Nausea/Vomiting/Diarrhea Stated complaint: Nausea, not eating Time Seen by Provider: 03/31/20 15:44 - History of Present Illness Initial comments: This a 59-year-old female presents emergency Department chief complaint of abdominal pain, nausea vomiting not eating. Patient states she feels very weak she states her abdomen feels bloated. She states that she's had loose stool but denies any hematochezia. Patient has appears or chills no chest pain or shortness breath. She states that she cannot keep anything down and feels very weak to the point where she is having difficulty getting around. 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 She denies any history of ascites no history of congestive heart failure. Patient has no headache no dizziness she states that pain is worse when she is vomiting. (Alex Ozuna) - Related Data Home Medications Medication Instructions Recorded Confirmed Methotrexate Sodium [Methotrexate] 7.5 mg PO WE 04/27/18 03/31/20 Gabapentin [Neurontin] 300 mg PO TID 12/11/18 03/31/20 ARIPiprazole [Abilify] 20 mg PO HS 07/09/19 03/31/20 FLUoxetine HCL [PROzac] 20 mg PO DAILY 07/09/19 03/31/20 Potassium Chloride ER [K-Dur 20] 20 meq PO DAILY 07/09/19 03/31/20 Lacosamide [Vimpat] 50 mg PO DAILY 03/31/20 03/31/20 Omeprazole 20 mg PO DAILY 03/31/20 03/31/20 Ondansetron HCl [Zofran] 8 mg PO TID PRN 03/31/20 03/31/20 Previous Rx's Medication Instructions Recorded Sulfamethox-Tmp 800-160Mg [Bactrim 1 tab PO Q12HR #2 tab 04/03/20 DS 800-160 mg] Allergies Allergy/AdvReac Type Severity Reaction Status Date / Time No Known Allergies Allergy Verified 03/31/20 19:18 Review of Systems ROS Other: All systems not noted in ROS Statement are negative. <Alex Ozuna - Last Filed: 03/31/20 19:03> ROS Other: All systems not noted in ROS Statement are negative. <Zora Castro Benny - Last Filed: 04/03/20 23:52> ROS Statement: Those systems with pertinent positive or pertinent negative responses have been documented in the HPI. Past Medical History Past Medical History: Diabetes Mellitus, GERD/Reflux, Hypertension, Osteoarthritis (OA), Rheumatoid Arthritis (RA), Vascular Disorder Additional Past Medical History / Comment(s): neuropathy ,Vitiligo, Raynaud's ,peripheral neuropathy. hx cellulitis lt lower leg, pt states hx of ulcers with right BKA.- wears prosthesis., Hx colon polyps., denies current diabetes and htn. History of Any Multi-Drug Resistant Organisms: MRSA Date of last positivie culture/infection: 06/11/12 MDRO Source:: lt axilla Past Surgical History: Appendectomy, Section, Joint Replacement, Orthopedic Surgery, Tonsillectomy, Tubal Ligation Additional Past Surgical History / Comment(s): right shoulder replacement, right leg BK amputation Past Anesthesia/Blood Transfusion Reactions: No Reported Reaction Past Psychological History: Depression Smoking Status: Current every day smoker Past Alcohol Use History: Daily Past Drug Use History: None Reported - Past Family History Mother Family Medical History: No Reported History, Diabetes Mellitus, Hyperlipidemia, Hypertension Father Family Medical History: Diabetes Mellitus, Hypertension Sister(s) Family Medical History: No Reported History Son(s) Family Medical History: No Reported History <Alex Ozuna - Last Filed: 03/31/20 19:03> General Exam Limitations: physical limitation General appearance: alert, in no apparent distress Head exam: Present: atraumatic, normocephalic, normal inspection Eye exam: Present: normal appearance, PERRL, EOMI. Absent: scleral icterus, conjunctival injection, periorbital swelling Pupils: Present: normal accommodation ENT exam: Present: mucous membranes dry, mucous membranes moist, TM's normal bilaterally. Absent: normal exam Neck exam: Present: normal inspection. Absent: tenderness, meningismus, lymphadenopathy Respiratory exam: Present: normal lung sounds bilaterally. Absent: respiratory distress, wheezes, rales, rhonchi, stridor Cardiovascular Exam: Present: regular rate, normal rhythm, normal heart sounds. Absent: systolic murmur, diastolic murmur, rubs, gallop, clicks GI/Abdominal exam: Present: soft, distended, tenderness (Moderate diffuse), normal bowel sounds. Absent: guarding, rebound, rigid Extremities exam: Present: other (Right below-knee amputation) Neurological exam: Present: alert, oriented X3 Skin exam: Present: warm, dry, intact, normal color. Absent: rash <Alex Ozuna - Last Filed: 03/31/20 19:03> Course Vital Signs 03/31/20 03/31/20 03/31/20 15:39 17:05 18:00 Temperature 98.5 F Pulse Rate 100 81 89 Respiratory 18 20 18 Rate Blood Pressure 104/73 106/64 101/56 O2 Sat by Pulse 95 97 98 Oximetry 03/31/20 03/31/20 18:58 20:30 Temperature 99.0 F Pulse Rate 96 90 Respiratory 18 18 Rate Blood Pressure 115/75 109/65 O2 Sat by Pulse 98 98 Oximetry Medical Decision Making - Lab Data Result diagrams: 03/31/20 16:25 03/31/20 16:25 <Alex Ozuna - Last Filed: 03/31/20 19:03> - Lab Data Result diagrams: 04/02/20 06:25 04/03/20 10:03 <Zora Castro - Last Filed: 04/03/20 23:52> - Medical Decision Making 59-year-old female presented for congenital nausea vomiting. Patient's has moderate dehydration, hypokalemia. Patient was given fluid bolus, IV potassium and oral replacement. Patient was found have a urinary tract infection which Rocephin was ordered, blood cultures and lactic. Patient had a failure to thrive and will need further nutrition, dietitian evaluation. (Alex Ozuna) I was available for consultation in the emergency department. The history and physical exam were done by the midlevel provider. I was consulted for this patients care. I reviewed the case with the midlevel provider and based on their presentation of the patient, I agree with the assessment, medical decision making and plan of care as documented. Patient admitted to [facility]. Chart was dictated using [employer] dictation software. Attempts were made to correct any dictation errors however some typographical errors may persist. Patient was seen during a national state of emergency due to the Covid-19 [place]. (Zora Castro) - Lab Data Lab Results 03/31/20 03/31/20 03/31/20 Range/Units 16:25 16:25 18:40 WBC 7.5 (3.8-10.6) k/uL RBC 4.80 (3.80-5.40) m/uL Hgb 13.8 (11.4-16.0) gm/dL Hct 45.5 (34.0-46.0) % MCV 94.9 (80.0-100.0) fL MCH 28.7 (25.0-35.0) pg MCHC 30.3 L (31.0-37.0) g/dL RDW 18.3 H (11.5-15.5) % Plt Count (150-450) k/uL Neutrophils % 79 % Lymphocytes % 12 % Monocytes % 5 % Eosinophils % 2 % Basophils % 0 % Neutrophils # 5.9 (1.3-7.7) k/uL Lymphocytes # 0.9 L (1.0-4.8) k/uL Monocytes # 0.4 (0-1.0) k/uL Eosinophils # 0.1 (0-0.7) k/uL Basophils # 0.0 (0-0.2) k/uL Hypochromasia Marked Anisocytosis Slight Macrocytosis Slight Sodium 133 L (137-145) mmol/L Potassium 2.6 L* (3.5-5.1) mmol/L Chloride 103 (98-107) mmol/L Carbon Dioxide 23 (22-30) mmol/L Anion Gap 7 mmol/L BUN 10 (7-17) mg/dL Creatinine 0.67 (0.52-1.04) mg/dL Est GFR (CKD-EPI)AfAm >90 (>60 ml/min/1.73 sqM) Est GFR (CKD-EPI)NonAf >90 (>60 ml/min/1.73 sqM) Glucose 121 H (74-99) mg/dL Plasma Lactic Acid Al 1.2 (0.7-2.0) mmol/L Calcium 8.9 (8.4-10.2) mg/dL Total Bilirubin 0.9 (0.2-1.3) mg/dL AST 29 (14-36) U/L ALT 14 (4-34) U/L Alkaline Phosphatase 126 (38-126) U/L Total Protein 6.3 (6.3-8.2) g/dL Albumin 3.1 L (3.5-5.0) g/dL Amylase <30 L (30-110) U/L Lipase 29 (23-300) U/L Coronavirus (PCR) (Not Detected) 03/31/20 Range/Units 19:00 WBC (3.8-10.6) k/uL RBC (3.80-5.40) m/uL Hgb (11.4-16.0) gm/dL Hct (34.0-46.0) % MCV (80.0-100.0) fL MCH (25.0-35.0) pg MCHC (31.0-37.0) g/dL RDW (11.5-15.5) % Plt Count (150-450) k/uL Neutrophils % % Lymphocytes % % Monocytes % % Eosinophils % % Basophils % % Neutrophils # (1.3-7.7) k/uL Lymphocytes # (1.0-4.8) k/uL Monocytes # (0-1.0) k/uL Eosinophils # (0-0.7) k/uL Basophils # (0-0.2) k/uL Hypochromasia Anisocytosis Macrocytosis Sodium (137-145) mmol/L Potassium (3.5-5.1) mmol/L Chloride (98-107) mmol/L Carbon Dioxide (22-30) mmol/L Anion Gap mmol/L BUN (7-17) mg/dL Creatinine (0.52-1.04) mg/dL Est GFR (CKD-EPI)AfAm (>60 ml/min/1.73 sqM) Est GFR (CKD-EPI)NonAf (>60 ml/min/1.73 sqM) Glucose (74-99) mg/dL Plasma Lactic Acid Al (0.7-2.0) mmol/L Calcium (8.4-10.2) mg/dL Total Bilirubin (0.2-1.3) mg/dL AST (14-36) U/L ALT (4-34) U/L Alkaline Phosphatase (38-126) U/L Total Protein (6.3-8.2) g/dL Albumin (3.5-5.0) g/dL Amylase (30-110) U/L Lipase (23-300) U/L Coronavirus (PCR) Not Detected (Not Detected) Disposition <Alex Ozuna - Last Filed: 03/31/20 19:03> <Zora Castro - Last Filed: 04/03/20 23:52> Clinical Impression: Abdominal pain, Hypokalemia, Failure to thrive, UTI (urinary tract infection), Intractable vomiting Disposition: ADMITTED IP TO THIS HOSP Condition: Stable
[2020-03-31 16:42] LABS: ALT 14 U/L (4-34); AST 29 U/L (14-36); African American GFR (CKD) >90 (>60 ml/min/1.73 sqM); Albumin 3.1 g/dL (3.5-5.0); Alkaline Phosphatase 126 U/L (38-126); Amylase <30 U/L (30-110); Anion Gap 7 mmol/L; Blood Urea Nitrogen 10 mg/dL (7-17); Calcium 8.9 mg/dL (8.4-10.2); Carbon Dioxide 23 mmol/L (22-30); Chloride 103 mmol/L (98-107); Glucose 121 mg/dL (74-99); Non-African American GFR(CKD) >90 (>60 ml/min/1.73 sqM); Sodium 133 mmol/L (137-145); Total Bilirubin 0.9 mg/dL (0.2-1.3); Total Protein 6.3 g/dL (6.3-8.2)
[2020-03-31 16:45] LABS: Potassium 2.6 mmol/L (3.5-5.1)
[2020-03-31 16:46] LABS: Anisocytosis Slight; Basophils % (A) 0 %; Eosinophils # (A) 0.1 k/uL (0-0.7); Eosinophils % (A) 2 %; HCT 45.5 % (34.0-46.0); HGB 13.8 gm/dL (11.4-16.0); Hypochromasia Marked; Lymphocytes # (A) 0.9 k/uL (1.0-4.8); Lymphocytes % (A) 12 %; MCH 28.7 pg (25.0-35.0); MCHC 30.3 g/dL (31.0-37.0); MCV 94.9 fL (80.0-100.0); Macrocytosis Slight; Mean Platelet Volume 10.3; Monocytes # (A) 0.4 k/uL (0-1.0); Monocytes % (A) 5 %; Neutrophils # (A) 5.9 k/uL (1.3-7.7); Neutrophils % (A) 79 %; RDW 18.3 % (11.5-15.5); WBC 7.5 k/uL (3.8-10.6)
[2020-03-31] MEDS ORDERED: METOCLOPRAMIDE 5 MG/ML 2 ML VIAL IVP STA (16:58)
[2020-03-31] MEDS ORDERED: diphenhydrAMINE 50 MG/ML 1 ML VIAL IVP STA (16:59)
[2020-03-31] MEDS ORDERED: POTASSIUM CHLORIDE 20 MEQ in WATER FOR INJECTION 1 100ML.BAG IVPB STA (17:04)
[2020-03-31] MEDS ORDERED: POTASSIUM BICARBONATE/CIT AC 20 MEQ TABLET.EFF PO ONE (17:04)
--- NOTE | 2020-03-31 18:01 | CT ---
EXAMINATION TYPE: CT abdomen pelvis w con DATE OF EXAM: 03/31/2020 HISTORY: Nausea, vomiting and abdominal pain. CT DLP: 1068mGycm Automated Exposure Control for Dose Reduction was Utilized. CONTRAST: CT scan of the abdomen and pelvis is performed without oral but with IV Contrast, patient injected wi th 100 mL of Isovue 300. COMPARISON: CT abdomen and pelvis December 11, 2018 and older CTs FINDINGS: LUNG BASES: Stable mild cardiomegaly. Redemonstration of old lateral right healed rib fractures. LIVER/GB: Liver is redemonstrated diffusely low dense consistent with marked fatty infiltration. Stab le roughly 1.1 cm enhancing central liver lesion 15 favoring benign etiology such as flash filling hemangioma. PANCREAS: No significant abnormality is seen. SPLEEN: No significant abnormality is seen. ADRENALS: No significant abnormality is seen. KIDNEYS: Persistent small bilateral renal calculi. On current study I identified 4-5 scattered left a nd 3-4 scattered right sided stones measuring 4 mm or smaller in size. Symmetric cortical medullary u ptake with nonvisualized excretion bilaterally but no hydronephrosis seen bilaterally bladder wall sh ows mild concentric wall thickening and suboptimal distention. BOWEL: Suboptimal evaluation of bowel without enteric contrast. Stomach poorly distended and thus sub optimally evaluated. No suspicious small or large bowel dilatation. Note is made of abnormal position ing of the ligament of Treitz as proximal jejunum extends inferiorly into the lower abdomen just righ t of midline. This is unchanged from prior studies. Mild to moderate wall thickening involving multip le portions of colon noted. No significant surrounding fat stranding seen. Mild wall thickening invol ving ileal loops in the pelvis. UTERUS/ADNEXA: Anteverted uterus projects to the left of midline. Prominence of the central hypodense endometrium, abnormal for postmenopausal female. Follow-up advised. LYMPH NODES: No greater than 1cm abdominal or pelvic lymph nodes are appreciated. OSSEOUS STRUCTURES: Demineralization is present. Stable moderate chronic compression fracture L1 leve l. Persistent scoliotic curvature. Hemangioma right T12 vertebra redemonstrated. Multilevel vacuum di sc phenomenon in the mid to lower lumbar spine. Facet arthropathy lower lumbar levels. Moderate disc space narrowing L4-L5 and L5-S1 levels. Moderate to severe narrowing of both hip joints. Old healed f racture deformity left superior and inferior pelvic ramus near level of pubic symphysis redemonstrate d. OTHER: No significant additional abnormality is seen. IMPRESSION: 1. No bowel obstruction identified. Underlying malrotation redemonstrated with abnormal positioning o f the ligament of Treitz noted. Cannot exclude mild uncomplicated acute enterocolitis, correlate clin ically. Differential includes infectious hand and inflammatory etiologies. 2. New prominence of the central uterine hypodense endometrium could reflect trapped fluid or abnorma l thickening. Clinical correlation and follow-up nonemergent pelvic ultrasound is advised to further evaluate. 3. Mild wall thickening in poorly distended bladder, cannot exclude acute cystitis in the appropriate clinical setting, correlate clinically. 2.
[2020-03-31 18:16] LABS: Appearance,Urine Cloudy (Clear); Bacteria,Urine Rare /hpf; Bilirubin,Urine Negative (Negative); Blood,Urine Trace (Negative); Color,Urine Yellow; Glucose,Urine (UA) Negative (Negative); Ketones,Urine Negative (Negative); Leukocyte Esterase,Urine Large (Negative); Mucus,Urine Rare /hpf; Nitrite,Urine Positive (Negative); Protein,Urine Trace (Negative); RBC,Urine 29 /hpf (0-5); Specific Gravity,Urine 1.017 (1.001-1.035); Squamous Epithelial Cell,Urine 3 /hpf (0-4); Urobilinogen,Urine <2.0 mg/dL (<2.0); WBC,Urine >182 /hpf (0-5)
[2020-03-31] MEDS ORDERED: cefTRIAXone IN SWFI 1,000 MG/10 ML SYRINGE IVP STA (18:19)
[2020-03-31] MEDS ORDERED: NALOXONE 0.4 MG/ML 1 ML VIAL IV PRN (19:00)
[2020-03-31] MEDS: SODIUM CHLORIDE 0.9% 1,000 ML IV SCH (19:00)
[2020-03-31] MEDS ORDERED: ONDANSETRON 4 MG/2 ML VIAL IVP PRN (19:00)
--- NOTE | 2020-03-31 21:28 | P.HPIM ---
History of Present Illness H&P Date: 03/31/20 The patient is a 59-year-old female with a PMH of type II DM, hypertension, hyperlipidemia, rheumatoid arthritis, peripheral vascular disease status post right BKA presented to the ED with complaints of nausea, vomiting, and anorexia. The patient notes that she has been suffering with nausea for the past 2 months and is thereby had a decreased appetite. She notes that she is unable to tolerate fluids or solids and throws it up soon after eating. She notes that due to her poor intake, she feels really weak and dehydrated. She notes epigastric abdominal pain which is brought on only with vomiting and is nonradiating. She otherwise denied dysuria, hematuria, chest pain, shortness of breath, fever, chills, headaches, or dizziness. The patient was previously admitted with similar complaints in November 2018 when she underwent an endoscopy showing esophagitis, gastritis, and duodenitis. The patient's symptoms were attributed to possible gastroparesis. During this admission, the patient underwent an extensive evaluation in the emergency room with CT abdomen and pelvis showing possible mild uncomplicated acute enterocolitis along with abnormality of the uterine endometrium. Laboratory evaluation revealed a WBC count of 7.5, hemoglobin 13.8, sodium 133, potassium 2.6, glucose 121, albumin 3.1, and lipase 29. Review of Systems Pertinent positives and negatives as discussed in HPI, a complete review of systems was performed and all other systems are negative. Past Medical History Past Medical History: Diabetes Mellitus, GERD/Reflux, Hypertension, Osteoarthritis (OA), Rheumatoid Arthritis (RA), Vascular Disorder Additional Past Medical History / Comment(s): neuropathy ,Vitiligo, Raynaud's ,peripheral neuropathy. hx cellulitis lt lower leg, pt states hx of ulcers with right BKA.- wears prosthesis., Hx colon polyps., denies current diabetes and htn. History of Any Multi-Drug Resistant Organisms: MRSA Date of last positivie culture/infection: 06/11/12 MDRO Source:: lt axilla Past Surgical History: Appendectomy, Section, Joint Replacement, Orthopedic Surgery, Tonsillectomy, Tubal Ligation Additional Past Surgical History / Comment(s): right shoulder replacement, right leg BK amputation Past Anesthesia/Blood Transfusion Reactions: No Reported Reaction Past Psychological History: Depression Smoking Status: Current every day smoker Past Alcohol Use History: Daily Past Drug Use History: None Reported - Past Family History Mother Family Medical History: No Reported History, Diabetes Mellitus, Hyperlipidemia, Hypertension Father Family Medical History: Diabetes Mellitus, Hypertension Sister(s) Family Medical History: No Reported History Son(s) Family Medical History: No Reported History Medications and Allergies Home Medications Medication Instructions Recorded Confirmed Type Methotrexate Sodium [Methotrexate] 7.5 mg PO WE 04/27/18 03/31/20 History Gabapentin [Neurontin] 300 mg PO TID 12/11/18 03/31/20 History ARIPiprazole [Abilify] 20 mg PO HS 07/09/19 03/31/20 History FLUoxetine HCL [PROzac] 20 mg PO DAILY 07/09/19 03/31/20 History Potassium Chloride ER [K-Dur 20] 20 meq PO DAILY 07/09/19 03/31/20 History Hydroxychloroquine Sulfate 200 mg PO DAILY 03/31/20 03/31/20 History [Plaquenil] Lacosamide [Vimpat] 50 mg PO DAILY 03/31/20 03/31/20 History Omeprazole 20 mg PO DAILY 03/31/20 03/31/20 History Ondansetron HCl [Zofran] 8 mg PO TID PRN 03/31/20 03/31/20 History Allergies Allergy/AdvReac Type Severity Reaction Status Date / Time No Known Allergies Allergy Verified 03/31/20 19:18 Physical Exam Vitals: Vital Signs Temp Pulse Resp BP Pulse Ox 03/31/20 18:58 96 18 115/75 98 03/31/20 18:00 89 18 101/56 98 03/31/20 17:05 81 20 106/64 97 03/31/20 15:39 98.5 F 100 18 104/73 95 Intake and Output 03/31/20 03/31/20 03/31/20 06:59 14:59 22:59 Other: Voiding Method Toilet Weight 63.503 kg General: Chronically ill-appearing female, no distress, appears older than stated age, normal weight Derm: no unusual rashes/lesions no unusual ecchymoses, warm, dry Head: atraumatic, normocephalic, symmetric Eyes: EOMI, no lid lag, anicteric sclera, pupils equal round reactive to light ENT: Nose and ears atraumatic, no thrush, no pharyngeal erythema Neck: No thyromegaly, no cervical lymphadenopathy, trachea midline, supple Mouth: no lip lesion, mucus membranes dry Cardiovascular: S1S2 reg, no murmur, positive posterior tibial pulse bilateral, no edema, capillary refill less than 2 seconds Lungs: CTA bilateral, no rhonchi, no rales , no accessory muscle use Abdominal: soft, nontender to palpation, no guarding, no appreciable organomegaly, normal bowel sounds Ext: Right BKA, no gross muscle atrophy, muscle strength 4 out of 5 in all 4 extremities grossly, no contractures Neuro: CN II-XI grossly intact, light touch intact all 4 extremities, finger to nose within normal limits Psych: Alert, oriented, appropriate affect Results CBC & Chem 7: 03/31/20 16:25 03/31/20 16:25 Labs: Abnormal Lab Results - Last 24 Hours (Table) 03/31/20 03/31/20 03/31/20 Range/Units 16:25 16:25 Unknown MCHC 30.3 L (31.0-37.0) g/dL RDW 18.3 H (11.5-15.5) % Lymphocytes # 0.9 L (1.0-4.8) k/uL Sodium 133 L (137-145) mmol/L Potassium 2.6 L* (3.5-5.1) mmol/L Glucose 121 H (74-99) mg/dL Albumin 3.1 L (3.5-5.0) g/dL Amylase <30 L (30-110) U/L Urine Appearance Cloudy H (Clear) Urine Protein Trace H (Negative) Urine Blood Trace H (Negative) Urine Nitrite Positive H (Negative) Ur Leukocyte Esterase Large H (Negative) Urine RBC 29 H (0-5) /hpf Urine WBC >182 H (0-5) /hpf Urine WBC Clumps Few H (None) /hpf Urine Bacteria Rare H (None) /hpf Urine Mucus Rare H (None) /hpf Assessment and Plan Plan: Intractable nausea and vomiting with anorexia -Possibly secondary to gastroparesis versus colitis -Hold off on antibiotics at this time -GI consult -Antiemetics -IV fluids -Check Calprotectin levels Hypokalemia -Likely due to poor oral intake -Replace and monitor -Check magnesium levels Failure to thrive -Dietitian consult Abnormal UA -Patient free of urinary complaints -Likely asymptomatic bacteriuria Type II DM -Insulin sliding scale with blood glucose monitoring DVT prophylaxis -IPCDs The patient is admitted with an anticipated greater than 2 midnight stay for evaluation of nausea and vomiting CODE STATUS: Full Code Discussed with: Patient Anticipated discharge date: 2-[address]: Home A total of 40 minutes was spent on the care of this complex patient more than 50% of the time was spent in counseling and care coordination.
[2020-03-31] MEDS ORDERED: TRIMETHOBENZAMIDE 100 MG/ML 2 ML VIAL IM PRN (22:06)
[2020-03-31] MEDS: POTASSIUM CHLORIDE ER 20 MEQ TAB.ER PO SCH (23:10)
[2020-03-31] MEDS: PANTOPRAZOLE 40 MG/10 ML VIAL IV SCH (23:12)
[2020-04-01] MEDS: ONDANSETRON 4 MG/2 ML VIAL IVP SCH ×5 (01:31→22:59)
[2020-04-01] MEDS: POTASSIUM CHLORIDE ER 20 MEQ TAB.ER PO SCH ×6 (01:31→21:49)
[2020-04-01] MEDS: SODIUM CHLORIDE 0.9% 1,000 ML IV SCH ×2 (05:54→21:49)
[2020-04-01 07:03] LABS: Anisocytosis Slight; HCT 36.2 % (34.0-46.0); Hypochromasia Marked; MCH 28.2 pg (25.0-35.0); MCHC 30.2 g/dL (31.0-37.0); MCV 93.3 fL (80.0-100.0); Mean Platelet Volume 8.4; Platelet Count 161 k/uL (150-450); RBC 3.88 m/uL (3.80-5.40); RDW 18.3 % (11.5-15.5); WBC 7.3 k/uL (3.8-10.6)
[2020-04-01 07:16] LABS: African American GFR (CKD) >90 (>60 ml/min/1.73 sqM); Anion Gap 3 mmol/L; Blood Urea Nitrogen 7 mg/dL (7-17); Calcium 7.5 mg/dL (8.4-10.2); Carbon Dioxide 25 mmol/L (22-30); Chloride 108 mmol/L (98-107); Glucose 90 mg/dL (74-99); Non-African American GFR(CKD) >90 (>60 ml/min/1.73 sqM); Sodium 136 mmol/L (137-145)
[2020-04-01] MEDS: INSULIN ASPART (NovoLOG) 100 UNIT/ML VIAL SQ SCH ×3 (07:23→17:09)
[2020-04-01 07:31] LABS: Potassium 2.7 mmol/L (3.5-5.1)
[2020-04-01] MEDS ORDERED: Potassium Replacement Protocol 1 EACH MISC MISCELLANE PRN (07:34)
[2020-04-01] MEDS ORDERED: PANTOPRAZOLE 40 MG/10 ML VIAL IV SCH (09:00)
[2020-04-01] MEDS ORDERED: METHOTREXATE SODIUM 2.5 MG TAB PO SCH (09:00)
[2020-04-01] MEDS: PANTOPRAZOLE 40 MG/10 ML VIAL IV SCH ×2 (09:01→21:48)
[2020-04-01] MEDS: LACOSAMIDE 50 MG TABLET PO SCH (09:01)
[2020-04-01] MEDS: GABAPENTIN 300 MG CAP PO SCH ×3 (09:04→21:49)
[2020-04-01] MEDS: FLUoxetine HCL 20 MG CAP PO SCH (09:05)
[2020-04-01 11:38] LABS: Glucose,Whole Blood 125 mg/dL (75-99)
[2020-04-01 12:58] VITALS: BMI 21.9
--- NOTE | 2020-04-01 14:47 | P.CONS ---
History of Present Illness - Reason for Consult Consult date: 04/01/20 Nausea and vomiting Requesting physician: Rekha Klein - Chief Complaint Nausea, vomiting, decreased oral intake - History of Present Illness 59-year-old female with multiple medical comorbidities including rheumatoid arthritis, peripheral vascular disease status post right BKA, hyperlipidemia, hypertension and diabetes mellitus who came to the hospital with complaints of nausea, vomiting and decreased oral intake. The patient reports 2 months of symptoms of nausea and vomiting. She reports frequent nausea and has been unable to tolerate liquids or solids secondary to nausea with oral intake. She had multiple episodes of vomiting and has had decreased oral intake secondary to her symptoms. The patient has previously undergone upper endoscopy in 11/2018 for similar complaints with findings of LA grade a esophagitis, duodenitis and mild gastritis at that time. She has also undergone colonoscopy in 06/2019 significant for polypectomy. Patient denies taking any antacid medications at home. Currently the patient is seen lying in bed where she is about to eat a lunch tray with no current complaints. She had been started on antibiotic therapy after presentation. Computed tomography scan of the abdomen had showed multiple findings including possible new enterocolitis, laboratory evaluation significant for WBC 7.5, hemoglobin 11 with potassium found to be depressed at 2.7 and normal liver function. Review of Systems REVIEW OF SYSTEMS: CONSTITUTIONAL: Denies any fevers, chills, weight change or fatigue. CARDIOVASCULAR: Denies any chest pain, palpitations high or low blood pressures RESPIRATORY: Denies any shortness of breath, hemoptysis or cough. GENITOURINARY: No dysuria or hematuria. MUSCULOSKELETAL: No weakness reported. SKIN: Denies any new rashes or lesions, jaundice or pallor. PSYCHIATRIC: Denies any depression or anxiety. NEUROLOGY: Denies headache, denies any new focal deficits. EARS/NOSE/THROAT: No recent hearing change, congestion, nasal discharge or sore throat. EYES: No pain in eyes, discharge or change in vision. GASTROINTESTINAL: As per HPI. Past Medical History Past Medical History: Diabetes Mellitus, GERD/Reflux, Hypertension, Osteoarthritis (OA), Rheumatoid Arthritis (RA), Vascular Disorder Additional Past Medical History / Comment(s): neuropathy ,Vitiligo, Raynaud's ,peripheral neuropathy. hx cellulitis lt lower leg, pt states hx of ulcers with right BKA.- wears prosthesis., Hx colon polyps., denies current diabetes and htn. History of Any Multi-Drug Resistant Organisms: MRSA Year Discovered:: 06/11/12 MDRO Source:: lt axilla Past Surgical History: Appendectomy, Section, Joint Replacement, Orthopedic Surgery, Tonsillectomy, Tubal Ligation Additional Past Surgical History / Comment(s): right shoulder replacement, right leg BK amputation Past Anesthesia/Blood Transfusion Reactions: No Reported Reaction Past Psychological History: Depression Smoking Status: Current every day smoker Past Alcohol Use History: Daily Past Drug Use History: None Reported - Past Family History Mother Family Medical History: No Reported History, Diabetes Mellitus, Hyperlipidemia, Hypertension Father Family Medical History: Diabetes Mellitus, Hypertension Sister(s) Family Medical History: No Reported History Son(s) Family Medical History: No Reported History Medications and Allergies Home Medications Medication Instructions Recorded Confirmed Type Methotrexate Sodium [Methotrexate] 7.5 mg PO WE 04/27/18 03/31/20 History Gabapentin [Neurontin] 300 mg PO TID 12/11/18 03/31/20 History ARIPiprazole [Abilify] 20 mg PO HS 07/09/19 03/31/20 History FLUoxetine HCL [PROzac] 20 mg PO DAILY 07/09/19 03/31/20 History Potassium Chloride ER [K-Dur 20] 20 meq PO DAILY 07/09/19 03/31/20 History Hydroxychloroquine Sulfate 200 mg PO DAILY 03/31/20 03/31/20 History [Plaquenil] Lacosamide [Vimpat] 50 mg PO DAILY 03/31/20 03/31/20 History Omeprazole 20 mg PO DAILY 03/31/20 03/31/20 History Ondansetron HCl [Zofran] 8 mg PO TID PRN 03/31/20 03/31/20 History Allergies Allergy/AdvReac Type Severity Reaction Status Date / Time No Known Allergies Allergy Verified 03/31/20 19:18 Physical Exam Vitals: Vital Signs Temp Pulse Pulse Resp BP BP Pulse Ox 04/01/20 07:00 98.4 F 89 16 89/55 90 L 04/01/20 02:19 97.7 F 96 18 94/61 97 03/31/20 21:21 99.1 F 102 H 18 101/68 97 03/31/20 20:30 99.0 F 90 18 109/65 98 03/31/20 18:58 96 18 115/75 98 03/31/20 18:00 89 18 101/56 98 03/31/20 17:05 81 20 106/64 97 03/31/20 15:39 98.5 F 100 18 104/73 95 Intake and Output 03/31/20 04/01/20 04/01/20 22:59 06:59 14:59 Other: Voiding Method Toilet Bedpan # Voids 2 Weight 63.503 kg On physical examination, patient appears comfortable in no apparent distress. HEAD: Normocephalic, atraumatic. EYES: No scleral icterus. No conjunctival injection. MOUTH: No lesions, tongue midline. NECK: Trachea midline, no gross abnormalities. CHEST: Decreased air entry in all lung chawla. HEART: Regular rate and rhythm. ABDOMEN: Soft, obese. Bowel sounds are positive. No organomegaly. No guarding or rigidity. EXTREMITIES: No pedal edema, right BKA. SKIN: No rashes, no jaundice. NEUROLOGIC: Alert and oriented. No focal deficits. Results CBC & Chem 7: 04/01/20 06:26 04/01/20 12:20 Labs: Abnormal Lab Results - Last 24 Hours (Table) 03/31/20 03/31/20 03/31/20 Range/Units 16:25 16:25 Unknown Hgb (11.4-16.0) gm/dL MCHC 30.3 L (31.0-37.0) g/dL RDW 18.3 H (11.5-15.5) % Lymphocytes # 0.9 L (1.0-4.8) k/uL Sodium 133 L (137-145) mmol/L Potassium 2.6 L* (3.5-5.1) mmol/L Chloride (98-107) mmol/L Glucose 121 H (74-99) mg/dL POC Glucose (mg/dL) (75-99) mg/dL Calcium (8.4-10.2) mg/dL Albumin 3.1 L (3.5-5.0) g/dL Amylase <30 L (30-110) U/L Urine Appearance Cloudy H (Clear) Urine Protein Trace H (Negative) Urine Blood Trace H (Negative) Urine Nitrite Positive H (Negative) Ur Leukocyte Esterase Large H (Negative) Urine RBC 29 H (0-5) /hpf Urine WBC >182 H (0-5) /hpf Urine WBC Clumps Few H (None) /hpf Urine Bacteria Rare H (None) /hpf Urine Mucus Rare H (None) /hpf 04/01/20 04/01/20 04/01/20 Range/Units 06:26 06:26 11:37 Hgb 11.0 L (11.4-16.0) gm/dL MCHC 30.2 L (31.0-37.0) g/dL RDW 18.3 H (11.5-15.5) % Lymphocytes # (1.0-4.8) k/uL Sodium 136 L (137-145) mmol/L Potassium 2.7 L* (3.5-5.1) mmol/L Chloride 108 H (98-107) mmol/L Glucose (74-99) mg/dL POC Glucose (mg/dL) 125 H (75-99) mg/dL Calcium 7.5 L (8.4-10.2) mg/dL Albumin (3.5-5.0) g/dL Amylase (30-110) U/L Urine Appearance (Clear) Urine Protein (Negative) Urine Blood (Negative) Urine Nitrite (Negative) Ur Leukocyte Esterase (Negative) Urine RBC (0-5) /hpf Urine WBC (0-5) /hpf Urine WBC Clumps (None) /hpf Urine Bacteria (None) /hpf Urine Mucus (None) /hpf Microbiology - Last 24 Hours (Table) 03/31/20 Unknown Urine Culture - Preliminary Urine,Voided CT scan - abdomen: report reviewed (Computed tomography scan abdomen and with multiple findings including possible new enterocolitis.) Assessment and Plan (1) Nausea & vomiting Narrative/Plan: 59-year-old female presenting to the hospital with complaints of nausea, vomiting and decreased oral intake occurring over the past few months. Patient has similar complaints in November 2018 when EGD was performed and showed esophagitis, gastritis and duodenitis. Denies any current antacid therapy. She did undergo colonoscopy in June 2019 significant for polypectomy. She does have significant postulate abnormalities and was found to be hypokalemic on presentation with normal LFTs. Unclear etiology of symptoms, may be related to diabetic gastroparesis, uncontrolled GERD, viral or bacterial enterocolitis with findings of possible enteral colitis on computed tomography scan of the abdomen or other etiology. Currently much improved with symptomatic treatment. Current Visit: No Status: Acute Code(s): R11.2 - NAUSEA WITH VOMITING, UNSPECIFIED SNOMED Code(s): 09415379 (2) Esophagitis Current Visit: Yes Status: Acute Code(s): K20.9 - ESOPHAGITIS, UNSPECIFIED SNOMED Code(s): 02400269 (3) Colon polyp Current Visit: Yes Status: Acute Code(s): K63.5 - POLYP OF COLON SNOMED Code(s): 51212261 Plan: Supportive care Okay for diet Continue to monitor CBC, BMP, LFTs Zofran was changed around the clock Protonix 40 mg twice daily added Tigan added as needed for breakthrough nausea Continue tight glycemic control Continue aggressive electrolyte replacement No plans for endoscopic evaluation at this time with EGD and colonoscopy performed in 2019 Thank you for allowing us to participate in the care of the patient
[2020-04-01 16:32] LABS: Glucose,Whole Blood 101 mg/dL (75-99)
--- NOTE | 2020-04-01 17:57 | P.PN ---
Subjective Progress Note Date: 04/01/20 Principal diagnosis: Nausea and vomiting Patient was seen and examined. No acute events overnight. Patient reports improvement in her nausea and vomiting since admission. No vomiting episodes today. She complains of mild epigastric discomfort. She denies any chest pain, shortness of breath or palpitations. No fever or chills. Objective - Vital Signs Vital signs: Vital Signs Temp 98.7 F 04/01/20 14:23 Pulse 91 04/01/20 14:23 Resp 15 04/01/20 14:23 BP 88/55 04/01/20 14:23 Pulse Ox 94 L 04/01/20 14:23 Intake & Output 03/31/20 04/01/20 04/01/20 18:59 06:59 18:59 Weight 63.503 kg 63.503 kg 63.503 kg Other: Voiding Method Toilet Bedpan # Voids 2 2 - Exam General: [Appears older than stated age, chronically ill-appearing], [no distress], [appears at stated age] Derm: [warm], [dry] Head: [atraumatic], [normocephalic], [symmetric] Eyes: [EOMI], [no lid lag], [anicteric sclera] Mouth: [no lip lesion], [mucus membranes moist] Cardiovascular: [S1S2 reg], [no murmur], [positive DP pulse bilateral], Lungs: [CTA bilateral], [no rhonchi, no rales] , [no accessory muscle use] Abdominal: [soft], [ nontender to palpation], [no guarding], [no appreciable organomegaly] Ext: [no gross muscle atrophy], [no edema], [right BKA] Neuro: [no focal neuro deficits] Psych: [Alert], [oriented], [appropriate affect] - Labs CBC & Chem 7: 04/01/20 06:26 04/01/20 12:20 Labs: Abnormal Lab Results - Last 24 Hours (Table) 03/31/20 04/01/20 04/01/20 Range/Units Unknown 06:26 06:26 Hgb 11.0 L (11.4-16.0) gm/dL MCHC 30.2 L (31.0-37.0) g/dL RDW 18.3 H (11.5-15.5) % Sodium 136 L (137-145) mmol/L Potassium 2.7 L* (3.5-5.1) mmol/L Chloride 108 H (98-107) mmol/L POC Glucose (mg/dL) (75-99) mg/dL Calcium 7.5 L (8.4-10.2) mg/dL Urine Appearance Cloudy H (Clear) Urine Protein Trace H (Negative) Urine Blood Trace H (Negative) Urine Nitrite Positive H (Negative) Ur Leukocyte Esterase Large H (Negative) Urine RBC 29 H (0-5) /hpf Urine WBC >182 H (0-5) /hpf Urine WBC Clumps Few H (None) /hpf Urine Bacteria Rare H (None) /hpf Urine Mucus Rare H (None) /hpf 04/01/20 04/01/20 04/01/20 Range/Units 11:37 12:20 16:31 Hgb (11.4-16.0) gm/dL MCHC (31.0-37.0) g/dL RDW (11.5-15.5) % Sodium (137-145) mmol/L Potassium 3.2 L (3.5-5.1) mmol/L Chloride (98-107) mmol/L POC Glucose (mg/dL) 125 H 101 H (75-99) mg/dL Calcium (8.4-10.2) mg/dL Urine Appearance (Clear) Urine Protein (Negative) Urine Blood (Negative) Urine Nitrite (Negative) Ur Leukocyte Esterase (Negative) Urine RBC (0-5) /hpf Urine WBC (0-5) /hpf Urine WBC Clumps (None) /hpf Urine Bacteria (None) /hpf Urine Mucus (None) /hpf Microbiology - Last 24 Hours (Table) 03/31/20 Unknown Urine Culture - Preliminary Urine,Voided Assessment and Plan Assessment: Intractable nausea and vomiting with anorexia -Possibly secondary to gastroparesis versus colitis -Hold off on antibiotics at this time -GI consult, Tigan added as needed -Transition to regular diet -Antiemetics -IV fluids -Check Calprotectin levels Hypokalemia -Likely due to poor oral intake -Replace and monitor -Check magnesium levels Failure to thrive -Dietitian consult Abnormal UA -Patient free of urinary complaints -Likely asymptomatic bacteriuria Type II DM -Insulin sliding scale with blood glucose monitoring DVT prophylaxis -IPCDs [Patient admitted for intractable nausea and vomiting. Likely from gastroparesis. Tolerating diet today. Also has hypokalemia, replacement underway. Plans for discharge home tomorrow if potassium normalizes and patient continues to tolerate oral intake.]
[2020-04-01 20:34] LABS: Glucose,Whole Blood 158 mg/dL (75-99)
[2020-04-01] MEDS: MELATONIN 5 MG TABLET PO SCH (22:59)
[2020-04-02] MEDS ORDERED: SODIUM CHLORIDE 0.9% 500 ML 500 ML IV ONE (01:22)
[2020-04-02] MEDS: ONDANSETRON 4 MG/2 ML VIAL IVP SCH ×2 (05:20→11:12)
[2020-04-02] MEDS: SODIUM CHLORIDE 0.9% 1,000 ML IV SCH ×3 (05:20→21:43)
[2020-04-02 06:52] LABS: Glucose,Whole Blood 91 mg/dL (75-99)
[2020-04-02] MEDS: INSULIN ASPART (NovoLOG) 100 UNIT/ML VIAL SQ SCH ×3 (07:15→16:33)
[2020-04-02] MEDS: LACOSAMIDE 50 MG TABLET PO SCH (07:18)
[2020-04-02] MEDS: FLUoxetine HCL 20 MG CAP PO SCH (07:18)
[2020-04-02] MEDS: GABAPENTIN 300 MG CAP PO SCH ×3 (07:18→21:42)
[2020-04-02] MEDS: PANTOPRAZOLE 40 MG/10 ML VIAL IV SCH (07:19)
[2020-04-02 07:34] LABS: African American GFR (CKD) >90 (>60 ml/min/1.73 sqM); Anion Gap 2 mmol/L; Blood Urea Nitrogen 4 mg/dL (7-17); Calcium 7.3 mg/dL (8.4-10.2); Carbon Dioxide 20 mmol/L (22-30); Chloride 115 mmol/L (98-107); Glucose 86 mg/dL (74-99); Non-African American GFR(CKD) >90 (>60 ml/min/1.73 sqM); Potassium 3.2 mmol/L (3.5-5.1); Sodium 137 mmol/L (137-145)
[2020-04-02 07:51] LABS: Anisocytosis Slight; HCT 35.9 % (34.0-46.0); HGB 10.7 gm/dL (11.4-16.0); Hypochromasia Marked; MCH 28.7 pg (25.0-35.0); MCHC 29.8 g/dL (31.0-37.0); MCV 96.4 fL (80.0-100.0); Macrocytosis Slight; Mean Platelet Volume 9.6; Platelet Count 152 k/uL (150-450); RBC 3.72 m/uL (3.80-5.40); RDW 18.6 % (11.5-15.5)
[2020-04-02] MEDS ORDERED: Potassium Replacement Protocol 1 EACH MISC MISCELLANE PRN (08:27)
[2020-04-02] MEDS: POTASSIUM CHLORIDE ER 20 MEQ TAB.ER PO SCH ×2 (09:03→11:11)
[2020-04-02 11:04] LABS: Basophils # (M) 0.04 k/uL (0-0.2); Eosinophils # (M) 0.16 k/uL (0-0.7); Lymphocytes # (M) 1.12 k/uL (1.0-4.8); Monocytes # (M) 0.16 k/uL (0-1.0); Neutrophils # (M) 2.52 k/uL (1.3-7.7); Neutrophils % (M) 63 %; Nucleated Red Blood Cells 0 /100 WBC (0-0); Total Cells Counted 100
[2020-04-02 11:26] LABS: Glucose,Whole Blood 139 mg/dL (75-99)
--- NOTE | 2020-04-02 16:28 | PN ---
PROGRESS NOTE DATE OF SERVICE: 04/02/2020 Patient is a 59-year;dis a pleasant white female admitted to hospital with nausea, vomiting, and decreased oral intake for the last several months' duration. She was seen in consultation by Dr. Sue yesterday. She is feeling a little bit better today. She still has decreased appetite. She has some nausea but no emesis. She remains on proton pump inhibitors and antiemetics. Last upper endoscopy in November of 2018 showed findings of esophagitis and duodenitis. PHYSICAL EXAMINATION: He appears comfortable, in no apparent distress. Vital signs are stable. Blood pressure is 88/55, pulse is 91, temperature 98.7. HEENT examination unremarkable, conjunctivae are pink, sclerae nonicteric oral cavity no lesions. NECK: No JVD or lymph node enlargement. CHEST: Clear to auscultation. HEART: Regular rate and rhythm. ABDOMEN: Soft. There was very minimal tenderness in the epigastric area. The rest of the abdomen was benign. Bowel sounds are positive. No organomegaly. EXTREMITIES: No pedal edema. SKIN: No rashes. NEURO: She is alert and oriented x3. No focal deficits. LABS: From today hemoglobin 11, platelets 161 and WBC 7.2. Basic metabolic panel showed a potassium of 3.2. Rest of the labs are within normal limits. IMPRESSION: 1. Intractable nausea, vomiting for the last several months' duration as well as decreased oral intake. Last upper endoscopy done in November of 2018 did show evidence of reflux esophagitis and mild gastritis. Presently on proton pump inhibitors as well as antiemetics and her symptoms are gradually improving. 2. History of anxiety, depression. 3. Type 2 diabetes mellitus. 4. History of rheumatoid arthritis on methotrexate. RECOMMENDATIONS: 1. Continue with Protonix 40 mg twice daily. 2. Increase her oral intake and small frequent meals. 3. Antiemetics as needed. 4. Calorie count and agree with dietary consult. 5. If she still remains symptomatic, will consider gastric emptying scan to evaluate for gastroparesis. The plan was discussed with the patient. He is agreeable to it. Thank you for this consultation. MMODL / IJN: [id number] /
[2020-04-02 16:33] LABS: Glucose,Whole Blood 104 mg/dL (75-99)
--- NOTE | 2020-04-02 18:02 | P.PN ---
Subjective Progress Note Date: 04/02/20 Still with nausea arms and legs are tingling Objective - Vital Signs Vital signs: Vital Signs Temp 98.3 F 04/02/20 15:00 Pulse 92 04/02/20 15:00 Resp 15 04/02/20 15:00 BP 96/61 04/02/20 15:00 Pulse Ox 96 04/02/20 15:00 Intake & Output 04/01/20 04/02/20 04/02/20 18:59 06:59 18:59 Intake Total 800 Balance 800 Weight 63.503 kg Intake: Intake, IV Titration 600 Amount Sodium Chloride 0.9% 1, 600 000 ml @ 100 mls/hr IV . Q10H [facility] Rx#:[id number] Oral 200 Other: Voiding Method Bedpan # Voids 2 2 4 - Constitutional General appearance: Present: mild distress - Respiratory Respiratory: bilateral: CTA - Cardiovascular Rhythm: regular - Gastrointestinal General gastrointestinal: Present: normal bowel sounds - Musculoskeletal Musculoskeletal Comment(s): right BKA - Psychiatric Psychiatric: Present: appropriate affect - Labs CBC & Chem 7: 04/02/20 06:25 04/02/20 06:25 Labs: Abnormal Lab Results - Last 24 Hours (Table) 04/01/20 04/02/20 04/02/20 Range/Units 20:29 06:25 06:25 RBC 3.72 L (3.80-5.40) m/uL Hgb 10.7 L (11.4-16.0) gm/dL MCHC 29.8 L (31.0-37.0) g/dL RDW 18.6 H (11.5-15.5) % Potassium 3.2 L (3.5-5.1) mmol/L Chloride 115 H (98-107) mmol/L Carbon Dioxide 20 L (22-30) mmol/L BUN 4 L (7-17) mg/dL POC Glucose (mg/dL) 158 H (75-99) mg/dL Calcium 7.3 L (8.4-10.2) mg/dL 04/02/20 04/02/20 Range/Units 11:24 16:31 RBC (3.80-5.40) m/uL Hgb (11.4-16.0) gm/dL MCHC (31.0-37.0) g/dL RDW (11.5-15.5) % Potassium (3.5-5.1) mmol/L Chloride (98-107) mmol/L Carbon Dioxide (22-30) mmol/L BUN (7-17) mg/dL POC Glucose (mg/dL) 139 H 104 H (75-99) mg/dL Calcium (8.4-10.2) mg/dL Microbiology - Last 24 Hours (Table) 03/31/20 18:40 Blood Culture - Preliminary Blood No Growth after 24 hours 03/31/20 Unknown Urine Culture - Preliminary Urine,Voided Gram Neg Bacilli Assessment and Plan (1) Hypokalemia Narrative/Plan: replete per protocol Current Visit: Yes Status: Acute Code(s): E87.6 - HYPOKALEMIA SNOMED Code(s): 82426838 (2) UTI (urinary tract infection) Narrative/Plan: UTI present illness/Rocephin gram-negative bacilli Current Visit: Yes Status: Acute Code(s): N39.0 - URINARY TRACT INFECTION, SITE NOT SPECIFIED SNOMED Code(s): 19377621 (3) Intractable vomiting Narrative/Plan: Antiemetics, history of GI in if not improving plan for gastric emptying study Current Visit: Yes Status: Acute Code(s): R11.10 - VOMITING, UNSPECIFIED SNOMED Code(s): 230078225 (4) Abdominal pain Narrative/Plan: pain control, Current Visit: Yes Status: Acute Code(s): R10.9 - UNSPECIFIED ABDOMINAL PAIN SNOMED Code(s): 47194323
[2020-04-02] MEDS ORDERED: GABAPENTIN 300 MG CAP PO STA (19:30)
[2020-04-02 20:42] LABS: Glucose,Whole Blood 112 mg/dL (75-99)
[2020-04-02] MEDS ORDERED: PANTOPRAZOLE 40 MG TABLET PO SCH (21:00)
[2020-04-02] MEDS: MELATONIN 5 MG TABLET PO SCH (21:42)
[2020-04-03 07:04] LABS: Glucose,Whole Blood 102 mg/dL (75-99)
[2020-04-03] MEDS: INSULIN ASPART (NovoLOG) 100 UNIT/ML VIAL SQ SCH ×2 (07:18→13:03)
[2020-04-03] MEDS: LACOSAMIDE 50 MG TABLET PO SCH (07:21)
[2020-04-03] MEDS: FLUoxetine HCL 20 MG CAP PO SCH (07:21)
[2020-04-03] MEDS: GABAPENTIN 300 MG CAP PO SCH (07:21)
[2020-04-03] MEDS: SODIUM CHLORIDE 0.9% 1,000 ML IV SCH (07:21)
[2020-04-03 08:21] VITALS: BP 101/67; PULSE 92; RESP 17; TEMP 97.9
--- NOTE | 2020-04-03 10:45 | P.DS ---
Providers Date of admission: 03/31/20 19:06 Expected date of discharge: 04/03/20 Attending physician: Lencho Van MD Consults: 03/31/20 21:27 Consult Physician Urgent Consulting Provider: Nhan Sue Consult Reason/Comments: intractable n/v Do you want consulting provider notified?: Yes Primary care physician: [facility] Course: The patient is a 59-year-old female with a PMH of type II DM, hypertension, hyperlipidemia, rheumatoid arthritis, peripheral vascular disease status post right BKA presented to the ED with complaints of nausea, vomiting, and anorexia. The patient notes that she has been suffering with nausea for the past 2 months and is thereby had a decreased appetite. She notes that she is unable to tolerate fluids or solids and throws it up soon after eating. She notes that due to her poor intake, she feels really weak and dehydrated. She notes epigastric abdominal pain which is brought on only with vomiting and is nonra diating. She otherwise denied dysuria, hematuria, chest pain, shortness of breath, fever, chills, headaches, or dizziness. The patient was previously admitted with similar complaints in November 2018 when she underwent an endoscopy showing esophagitis, gastritis, and duodenitis. The patient's symptoms were attributed to possible gastroparesis. During this admission, the patient underwent an extensive evaluation in the emergency room with CT abdomen and pelvis showing possible mild uncomplicated acute enterocolitis along with abnormality of the uterine endometrium. Laboratory evaluation revealed a WBC count of 7.5, hemoglobin 13.8, sodium 133, potassium 2.6, glucose 121, albumin 3.1, and lipase 29. Her symptoms were thought to be related to gastroparesis as per previous hospitalization. She did not receive any antibiotics during her hospitalization. Gastroenterology was consulted and recommended Tigan as needed. She was tolerating diet during her hospitalization. Gastroenterology also recommended gastric emptying study which need to to be scheduled in the outpatient setting. She was noted to be hypokalemic with a potassium of 2.6 on admission. Her potassium was replaced via protocol. Her potassium the day prior to discharge was 3.2. Her potassium was pending at the time of this note. Urinalysis was positive for UTI. Patient was asymptomatic. She received 2 days of Rocephin. She was given Bactrim to complete a total of 3 days. Patient was seen and examined. No acute events overnight. Patient reports able to tolerate small amounts of food. She denies any chest pain, shortness breath or palpitations. General: [Appears older than stated age, chronically ill-appearing], [no distress], [appears at stated age] Derm: [warm], [dry] Head: [atraumatic], [normocephalic], [symmetric] Eyes: [EOMI], [no lid lag], [anicteric sclera] Mouth: [no lip lesion], [mucus membranes moist] Cardiovascular: [S1S2 reg], [no murmur], [positive DP pulse bilateral], Lungs: [CTA bilateral], [no rhonchi, no rales] , [no accessory muscle use] Abdominal: [soft], [ nontender to palpation], [no guarding], [no appreciable organomegaly] Ext: [no gross muscle atrophy], [no edema], [right BKA] Neuro: [no focal neuro deficits] Psych: [Alert], [oriented], [appropriate affect] Intractable nausea and vomiting with anorexia -Possibly secondary to gastroparesis versus colitis -Hold off on antibiotics at this time -GI consult, Tigan added as needed, recommends gastric emptying study which can be done in the outpatient setting -Transition to regular diet -Antiemetics -IV fluids -Check Calprotectin levels Hypokalemia -Likely due to poor oral intake -Replace and monitor -Repeat potassium pending -Check magnesium levels Failure to thrive -Dietitian consult Abnormal UA -Patient free of urinary complaints -She has completed 2 days of Rocephin IV, plans to continue Bactrim for 1 more day Type II DM -Insulin sliding scale with blood glucose monitoring DVT prophylaxis -IPCDs [Patient admitted for intractable nausea and vomiting. Likely from gastroparesis. Tolerating diet today. Also has hypokalemia, replacement underway. Plans for discharge home tomorrow if potassium normalizes and patient continues to tolerate oral intake.] Pertinent Studies: CT abdomen and pelvis Patient Condition at Discharge: Stable Plan - Discharge Summary Discharge Rx Participant: Yes New Discharge Prescriptions: New Sulfamethox-Tmp 800-160Mg [Bactrim DS 800-160 mg] 1 tab PO Q12HR #2 tab Continue Methotrexate Sodium [Methotrexate] 7.5 mg PO WE Gabapentin [Neurontin] 300 mg PO TID Potassium Chloride ER [K-Dur 20] 20 meq PO DAILY FLUoxetine HCL [PROzac] 20 mg PO DAILY ARIPiprazole [Abilify] 20 mg PO HS Lacosamide [Vimpat] 50 mg PO DAILY Omeprazole 20 mg PO DAILY Ondansetron HCl [Zofran] 8 mg PO TID PRN PRN Reason: Nausea Discontinued Hydroxychloroquine Sulfate [Plaquenil] 200 mg PO DAILY Discharge Medication List Methotrexate Sodium [Methotrexate] 7.5 mg PO WE 04/27/18 [History] Gabapentin [Neurontin] 300 mg PO TID 12/11/18 [History] ARIPiprazole [Abilify] 20 mg PO HS 07/09/19 [History] FLUoxetine HCL [PROzac] 20 mg PO DAILY 07/09/19 [History] Potassium Chloride ER [K-Dur 20] 20 meq PO DAILY 07/09/19 [History] Lacosamide [Vimpat] 50 mg PO DAILY 03/31/20 [History] Omeprazole 20 mg PO DAILY 03/31/20 [History] Ondansetron HCl [Zofran] 8 mg PO TID PRN 03/31/20 [History] Sulfamethox-Tmp 800-160Mg [Bactrim DS 800-160 mg] 1 tab PO Q12HR #2 tab 04/03/20 [Rx] Follow up Appointment(s)/Referral(s): Noa Mae MD [Primary Care Provider] - 1-2 days Lavinia Weaver MD [STAFF PHYSICIAN] - 1 Week Activity/Diet/Wound Care/Special Instructions: Diet: Diabetic Follow-up PCP within 3 days of discharge. Follow-up with GI within 1 week of discharge. GI will order a gastric emptying study in the outpatient setting. He will need to repeat BMP to monitor your potassium, this can be done through your PCP, recommend repeat BMP in 3 days. Discharge Disposition: HOME SELF-CARE
[2020-04-03 11:15] LABS: Glucose,Whole Blood 131 mg/dL (75-99)
[2020-04-03 11:16] LABS: African American GFR (CKD) >90 (>60 ml/min/1.73 sqM); Anion Gap 1 mmol/L; Blood Urea Nitrogen 2 mg/dL (7-17); Calcium 7.6 mg/dL (8.4-10.2); Carbon Dioxide 22 mmol/L (22-30); Chloride 113 mmol/L (98-107); Glucose 122 mg/dL (74-99); Non-African American GFR(CKD) >90 (>60 ml/min/1.73 sqM); Potassium 3.4 mmol/L (3.5-5.1); Sodium 136 mmol/L (137-145)
== END 2020-04-03 13:27 | disposition home or self-care (01) | DRG 74 ==
LOC: EC 15:36 → 4SSUR 19:06
PROVIDERS: ADMIT Family Medicine; ATTEND Family Medicine
DX: E11.43 Type 2 diabetes mellitus with diabetic autonomic (poly)neuropathy (principal); N39.0 Urinary tract infection, site not specified; E11.51 Type 2 diabetes mellitus with diabetic peripheral angiopathy without gangrene; E78.5 Hyperlipidemia, unspecified; E86.0 Dehydration; E87.6 Hypokalemia; K63.5 Polyp of colon; F17.200 Nicotine dependence, unspecified, uncomplicated; F32.9 Major depressive disorder, single episode, unspecified; I10 Essential (primary) hypertension; I73.00 Raynaud's syndrome without gangrene; K21.0 Gastro-esophageal reflux disease with esophagitis; K29.70 Gastritis, unspecified, without bleeding; K29.80 Duodenitis without bleeding; K31.84 Gastroparesis; M06.9 Rheumatoid arthritis, unspecified; M19.90 Unspecified osteoarthritis, unspecified site; R62.7 Adult failure to thrive; Z11.59 Encounter for screening for other viral diseases; Z96.611 Presence of right artificial shoulder joint; Z89.511 Acquired absence of right leg below knee; Z87.19 Personal history of other diseases of the digestive system; Z83.3 Family history of diabetes mellitus; Z79.899 Other long term (current) drug therapy; Z82.49 Family history of ischemic heart disease and other diseases of the circulatory system; Z86.14 Personal history of Methicillin resistant Staphylococcus aureus infection; Z90.49 Acquired absence of other specified parts of digestive tract; Z90.89 Acquired absence of other organs; Z98.890 Other specified postprocedural states; Z98.891 History of uterine scar from previous surgery; Z98.51 Tubal ligation status
CPT/HCPCS: 36415; 74177; 80048; 80053; 81001; 82150; 83605; 83690; 83735; 84132; 85025; 85027; 87040; 87077; 87086; 87186; 87635; 93005; 96361; 96365; 96366; 96375; 99285

== ENCOUNTER 2020-04-23 14:03 | Emergency (ER) | payer MEDICARE, OTHER ==
[2020-04-23 14:09] VITALS: TEMP 98.8
[2020-04-23] MEDS ORDERED: SODIUM CHLORIDE 0.9% 1,000 ML IV STA (14:48)
--- NOTE | 2020-04-23 14:56 | ED ---
General Adult HPI - General Chief complaint: Recheck/Abnormal Lab/Rx Stated complaint: tingling sensation Time Seen by Provider: 04/23/20 14:12 Source: patient Mode of arrival: wheelchair Limitations: physical limitation - History of Present Illness Initial comments: Patient is a 59-year-old female, with multiple comorbidities including diabetes, hypertension, neuropathy, presents emergency Department with complaints of weakness, tingling and numbness all through her body for the past week. Patient states she was admitted to the hospital approximately one month ago for intractable nausea and vomiting. Patient states she has been feeling a little bit better since then but has not been able to eat and drink very much. She states she only eats once a day and does not drink a lot of water. Patient denies any recent injuries or falls. She has history of right below the knee amputation. She states the numbness and tingling is into all 4 of her extremities. She denies any chest pain, shortness of breath, nausea, vomiting, abdominal pain. She denies any urinary complaints. She denies having a headache, dizziness. She denies any recent fever, chills. She is no further complaints at this time. Upon arrival to the ER, her vital signs are stable. - Related Data Home Medications Medication Instructions Recorded Confirmed Methotrexate Sodium [Methotrexate] 7.5 mg PO WE 04/27/18 03/31/20 Gabapentin [Neurontin] 300 mg PO TID 12/11/18 03/31/20 ARIPiprazole [Abilify] 20 mg PO HS 07/09/19 03/31/20 FLUoxetine HCL [PROzac] 20 mg PO DAILY 07/09/19 03/31/20 Potassium Chloride ER [K-Dur 20] 20 meq PO DAILY 07/09/19 03/31/20 Lacosamide [Vimpat] 50 mg PO DAILY 03/31/20 03/31/20 Omeprazole 20 mg PO DAILY 03/31/20 03/31/20 Ondansetron HCl [Zofran] 8 mg PO TID PRN 03/31/20 03/31/20 Previous Rx's Medication Instructions Recorded Sulfamethox-Tmp 800-160Mg [Bactrim 1 tab PO Q12HR #2 tab 04/03/20 DS 800-160 mg] Allergies Allergy/AdvReac Type Severity Reaction Status Date / Time No Known Allergies Allergy Verified 04/23/20 14:09 Review of Systems ROS Statement: Those systems with pertinent positive or pertinent negative responses have been documented in the HPI. ROS Other: All systems not noted in ROS Statement are negative. Past Medical History Past Medical History: Diabetes Mellitus, GERD/Reflux, Hypertension, Osteoarthritis (OA), Rheumatoid Arthritis (RA), Vascular Disorder Additional Past Medical History / Comment(s): neuropathy ,Vitiligo, Raynaud's ,peripheral neuropathy. hx cellulitis lt lower leg, pt states hx of ulcers with right BKA.- wears prosthesis., Hx colon polyps., denies current diabetes and htn. History of Any Multi-Drug Resistant Organisms: MRSA Date of last positivie culture/infection: 06/11/12 MDRO Source:: lt axilla Past Surgical History: Appendectomy, Section, Joint Replacement, Orthopedic Surgery, Tonsillectomy, Tubal Ligation Additional Past Surgical History / Comment(s): right shoulder replacement, right leg BK amputation Past Anesthesia/Blood Transfusion Reactions: No Reported Reaction Past Psychological History: Depression Smoking Status: Current every day smoker Past Alcohol Use History: Daily Past Drug Use History: None Reported - Past Family History Mother Family Medical History: No Reported History, Diabetes Mellitus, Hyperlipidemia, Hypertension Father Family Medical History: Diabetes Mellitus, Hypertension Sister(s) Family Medical History: No Reported History Son(s) Family Medical History: No Reported History General Exam - General Exam Comments Initial Comments: GENERAL: Well-appearing, well-nourished and in no acute distress. HEAD: Atraumatic, normocephalic. EYES: Pupils equal round and reactive to light, extraocular movements intact, sclera anicteric, conjunctiva are normal. ENT: TMs normal, nares patent, oropharynx clear without exudates. Moist mucous membranes. NECK: Normal range of motion, supple without lymphadenopathy or JVD. LUNGS: Breath sounds clear to auscultation bilaterally and equal. No wheezes rales or rhonchi. HEART: Regular rate and rhythm without murmurs, rubs or gallops. ABDOMEN: Soft, nontender, normoactive bowel sounds. No guarding, no rebound. No masses appreciated. : Deferred EXTREMITIES: Normal range of motion, no pitting or edema. No clubbing or cyanosis. Right below the knee amputation. Strength is 4 out of 5 upper extremities bilaterally. Patient admits to decreased sensation in both upper extremities and both lower extremities. NEUROLOGICAL: Cranial nerves II through XII grossly intact. Normal speech PSYCH: Normal mood, normal affect. SKIN: Warm, Dry, normal turgor, no rashes or lesions noted. Limitations: physical limitation Course Vital Signs 04/23/20 04/23/20 14:04 15:40 Temperature 98.8 F Pulse Rate 100 88 Respiratory 18 15 Rate Blood Pressure 127/79 132/80 O2 Sat by Pulse 98 96 Oximetry EKG Findings - EKG Comments: EKG Findings:: Normal sinus rhythm, prolonged QT, no signs of acute ischemia. Similar to previous EKG last month. Ventricular rate 88, ME interval 148, QTC 46. Medical Decision Making - Medical Decision Making Patient is a 59-year-old female with history of neuropathy presenting with numbness and tingling and all 4 extremities x 1 week. His vital signs are stable upon arrival. EKG shows no acute abnormality, troponin was normal. Lab work reveals no acute process, lactic acid is normal, electrolytes are normal. Urine shows no signs of infection. Chest x-ray is shows no acute process. She was given 1 L of fluids. I discussed with patient that her symptoms are most likely related to her chronic neuropathy. Patient states she was recently decreased on her Neurontin. I recommended following up with her neurologist. She is stable for discharge at this time. Patient is in agreement with this plan of care. Return parameters were discussed with the patient and she verbalized understanding. Case discussed with Dr. Truong. - Lab Data Result diagrams: 04/23/20 14:55 04/23/20 14:55 Lab Results 04/23/20 04/23/20 04/23/20 Range/Units 14:55 14:55 14:55 WBC 6.7 (3.8-10.6) k/uL RBC 4.03 (3.80-5.40) m/uL Hgb 11.9 (11.4-16.0) gm/dL Hct 37.9 (34.0-46.0) % MCV 94.2 (80.0-100.0) fL MCH 29.6 (25.0-35.0) pg MCHC 31.4 (31.0-37.0) g/dL RDW 19.5 H (11.5-15.5) % Plt Count (150-450) k/uL Neutrophils % 63 % Lymphocytes % 29 % Monocytes % 3 % Eosinophils % 3 % Basophils % 0 % Neutrophils # 4.2 (1.3-7.7) k/uL Lymphocytes # 2.0 (1.0-4.8) k/uL Monocytes # 0.2 (0-1.0) k/uL Eosinophils # 0.2 (0-0.7) k/uL Basophils # 0.0 (0-0.2) k/uL Manual Slide Review Performed Hypochromasia Marked Anisocytosis Slight Macrocytosis Slight PT 9.9 (9.0-12.0) sec INR 0.9 (<1.2) APTT 22.1 (22.0-30.0) sec Sodium 140 (137-145) mmol/L Potassium 3.5 (3.5-5.1) mmol/L Chloride 108 H (98-107) mmol/L Carbon Dioxide 26 (22-30) mmol/L Anion Gap 6 mmol/L BUN 8 (7-17) mg/dL Creatinine 0.50 L (0.52-1.04) mg/dL Est GFR (CKD-EPI)AfAm >90 (>60 ml/min/1.73 sqM) Est GFR (CKD-EPI)NonAf >90 (>60 ml/min/1.73 sqM) Glucose 102 H (74-99) mg/dL Plasma Lactic Acid Al (0.7-2.0) mmol/L Calcium 8.9 (8.4-10.2) mg/dL Phosphorus 2.7 (2.5-4.5) mg/dL Magnesium 1.7 (1.6-2.3) mg/dL Total Bilirubin 0.7 (0.2-1.3) mg/dL AST 45 H (14-36) U/L ALT 27 (4-34) U/L Alkaline Phosphatase 148 H (38-126) U/L Troponin I (0.000-0.034) ng/mL Total Protein 6.3 (6.3-8.2) g/dL Albumin 3.1 L (3.5-5.0) g/dL Urine Color Urine Appearance (Clear) Urine pH (5.0-8.0) Ur Specific [place] (1.001-1.035) Urine Protein (Negative) Urine Glucose (UA) (Negative) Urine Ketones (Negative) Urine Blood (Negative) Urine Nitrite (Negative) Urine Bilirubin (Negative) Urine Urobilinogen (<2.0) mg/dL Ur Leukocyte Esterase (Negative) Urine RBC (0-5) /hpf Urine WBC (0-5) /hpf Ur Squamous Epith Cells (0-4) /hpf Urine Bacteria (None) /hpf Urine Mucus (None) /hpf 04/23/20 04/23/20 04/23/20 Range/Units 14:55 14:55 16:03 WBC (3.8-10.6) k/uL RBC (3.80-5.40) m/uL Hgb (11.4-16.0) gm/dL Hct (34.0-46.0) % MCV (80.0-100.0) fL MCH (25.0-35.0) pg MCHC (31.0-37.0) g/dL RDW (11.5-15.5) % Plt Count (150-450) k/uL Neutrophils % % Lymphocytes % % Monocytes % % Eosinophils % % Basophils % % Neutrophils # (1.3-7.7) k/uL Lymphocytes # (1.0-4.8) k/uL Monocytes # (0-1.0) k/uL Eosinophils # (0-0.7) k/uL Basophils # (0-0.2) k/uL Manual Slide Review Hypochromasia Anisocytosis Macrocytosis PT (9.0-12.0) sec INR (<1.2) APTT (22.0-30.0) sec Sodium (137-145) mmol/L Potassium (3.5-5.1) mmol/L Chloride (98-107) mmol/L Carbon Dioxide (22-30) mmol/L Anion Gap mmol/L BUN (7-17) mg/dL Creatinine (0.52-1.04) mg/dL Est GFR (CKD-EPI)AfAm (>60 ml/min/1.73 sqM) Est GFR (CKD-EPI)NonAf (>60 ml/min/1.73 sqM) Glucose (74-99) mg/dL Plasma Lactic Acid Al 1.2 (0.7-2.0) mmol/L Calcium (8.4-10.2) mg/dL Phosphorus (2.5-4.5) mg/dL Magnesium (1.6-2.3) mg/dL Total Bilirubin (0.2-1.3) mg/dL AST (14-36) U/L ALT (4-34) U/L Alkaline Phosphatase (38-126) U/L Troponin I <0.012 (0.000-0.034) ng/mL Total Protein (6.3-8.2) g/dL Albumin (3.5-5.0) g/dL Urine Color Yellow Urine Appearance Cloudy H (Clear) Urine pH 7.0 (5.0-8.0) Ur Specific [place] 1.014 (1.001-1.035) Urine Protein 1+ H (Negative) Urine Glucose (UA) Negative (Negative) Urine Ketones Negative (Negative) Urine Blood Negative (Negative) Urine Nitrite Negative (Negative) Urine Bilirubin Negative (Negative) Urine Urobilinogen 2.0 (<2.0) mg/dL Ur Leukocyte Esterase Large H (Negative) Urine RBC 2 (0-5) /hpf Urine WBC 6 H (0-5) /hpf Ur Squamous Epith Cells 16 H (0-4) /hpf Urine Bacteria Occasional H (None) /hpf Urine Mucus Moderate H (None) /hpf Disposition Clinical Impression: Polyneuropathy, Dehydration Disposition: HOME SELF-CARE Condition: Stable Instructions (If sedation given, give patient instructions): Peripheral Neuropathy (ED) Additional Instructions: Please return to the Emergency Department if symptoms worsen or any other concerns. Follow-up with neurologist as discussed. Continue to increase fluid intake. Is patient prescribed a controlled substance at d/c from ED?: No Referrals: Noa Mae MD [Primary Care Provider] - 1-2 days
[2020-04-23 15:11] LABS: Anisocytosis Slight; Basophils % (A) 0 %; Eosinophils # (A) 0.2 k/uL (0-0.7); Eosinophils % (A) 3 %; HCT 37.9 % (34.0-46.0); HGB 11.9 gm/dL (11.4-16.0); Hypochromasia Marked; Lymphocytes % (A) 29 %; MCH 29.6 pg (25.0-35.0); MCHC 31.4 g/dL (31.0-37.0); MCV 94.2 fL (80.0-100.0); Macrocytosis Slight; Mean Platelet Volume 12.9; Monocytes # (A) 0.2 k/uL (0-1.0); Monocytes % (A) 3 %; Neutrophils # (A) 4.2 k/uL (1.3-7.7); Neutrophils % (A) 63 %; RBC 4.03 m/uL (3.80-5.40); RDW 19.5 % (11.5-15.5); WBC 6.7 k/uL (3.8-10.6)
[2020-04-23 15:21] LABS: ALT 27 U/L (4-34); AST 45 U/L (14-36); African American GFR (CKD) >90 (>60 ml/min/1.73 sqM); Albumin 3.1 g/dL (3.5-5.0); Alkaline Phosphatase 148 U/L (38-126); Anion Gap 6 mmol/L; Blood Urea Nitrogen 8 mg/dL (7-17); Calcium 8.9 mg/dL (8.4-10.2); Carbon Dioxide 26 mmol/L (22-30); Chloride 108 mmol/L (98-107); Glucose 102 mg/dL (74-99); Magnesium 1.7 mg/dL (1.6-2.3); Non-African American GFR(CKD) >90 (>60 ml/min/1.73 sqM); Phosphorus 2.7 mg/dL (2.5-4.5); Potassium 3.5 mmol/L (3.5-5.1); Sodium 140 mmol/L (137-145); Total Bilirubin 0.7 mg/dL (0.2-1.3); Total Protein 6.3 g/dL (6.3-8.2)
[2020-04-23 15:27] LABS: INR 0.9 (<1.2); Partial Thromboplastin Time 22.1 sec (22.0-30.0); Prothrombin Time 9.9 sec (9.0-12.0)
--- NOTE | 2020-04-23 15:28 | XR ---
EXAMINATION TYPE: XR chest 2V DATE OF EXAM: 04/23/2020 COMPARISON: 12/11/2018 TECHNIQUE: PA and lateral views submitted. HISTORY: Weakness FINDINGS: The lungs are clear and there is no pneumothorax, pleural effusion, or focal pneumonia. Hypertrophi c and degenerative change of the spine. There is a chronic deformity of the left humerus with diffuse osteopenia and postsurgical change right shoulder. Chronic deformity of the rib cage bilaterally. No pneumothorax. Coarsened interstitium suggests chronic interstitial lung disease. Heart is enlarged. Degenerative change of the spine. Hyperinflation suggests COPD. IMPRESSION: 1. No acute process. Correlate for COPD.
[2020-04-23 15:47] VITALS: BP 132/80; PULSE 88; RESP 15
[2020-04-23 16:16] LABS: Appearance,Urine Cloudy (Clear); Bacteria,Urine Occasional /hpf; Bilirubin,Urine Negative (Negative); Blood,Urine Negative (Negative); Color,Urine Yellow; Glucose,Urine (UA) Negative (Negative); Ketones,Urine Negative (Negative); Leukocyte Esterase,Urine Large (Negative); Mucus,Urine Moderate /hpf; Nitrite,Urine Negative (Negative); Protein,Urine 1+ (Negative); RBC,Urine 2 /hpf (0-5); Specific Gravity,Urine 1.014 (1.001-1.035); Squamous Epithelial Cell,Urine 16 /hpf (0-4); WBC,Urine 6 /hpf (0-5)
== END 2020-04-23 17:25 | disposition home or self-care (01) ==
LOC: EC 14:03
DX: G62.9 Polyneuropathy, unspecified (principal); E86.0 Dehydration; K21.9 Gastro-esophageal reflux disease without esophagitis; F17.200 Nicotine dependence, unspecified, uncomplicated; Z79.899 Other long term (current) drug therapy; Z96.611 Presence of right artificial shoulder joint; Z90.89 Acquired absence of other organs; Z89.511 Acquired absence of right leg below knee
CPT/HCPCS: 36415; 71046; 80053; 81001; 83605; 83735; 84100; 84484; 85025; 85610; 85730; 93005; 96360; 99284

== ENCOUNTER → 2020-05-20 | Outpatient (CLI) | payer MEDICARE, OTHER ==
--- NOTE | 2020-05-20 15:02 | NM ---
EXAMINATION TYPE: NM gastric emptying static DATE OF EXAM: 05/20/2020 COMPARISON: NONE HISTORY: Gastroparesis Following administration of 2.14 mCi Tc 99m Sulfur Colloid with 3 oz liquid eggs, 1/2 piece of toast and water, projection images of the abdomen were obtained 10 minutes post ingestion. Patient Emptying Values 1 Hour 58 % 2 Hours 83 % 3 Hours 92 % 4 Hours 100 % Gastroesophagel reflux: None IMPRESSION: Gastric emptying: Normal Gastroesophageal reflux: None Gastric emptying normal percentage values: 30 minutes: <70% of retention (> 30% emptying) suggests abnormally fast emptying. 60 minutes: <90% retention (>10% emptying) is normal; less than 30% retention (>70% emptying) suggest s abnormally rapid emptying. 90 minutes: <65% retention (> 35% emptying) is normal. 120 minutes: <60% retention (> 40% emptying) is normal. 180 minutes: <30% retention (> 70% emptying) is normal.
== END | disposition home or self-care (01) ==
LOC: RADNMMAIN 07:00
PROVIDERS: ATTEND Registered Nurse
DX: K31.84 Gastroparesis (principal)
CPT/HCPCS: 78264; A9541

== ENCOUNTER → 2020-06-16 | Outpatient (CLI) | payer MEDICARE, OTHER ==
[2020-06-16 15:44] LABS: Anisocytosis Slight; Basophils # (A) 0.1 k/uL (0-0.2); Basophils % (A) 1 %; Eosinophils # (A) 0.1 k/uL (0-0.7); Eosinophils % (A) 1 %; HGB 11.4 gm/dL (11.4-16.0); Hypochromasia Marked; Lymphocytes # (A) 1.6 k/uL (1.0-4.8); Lymphocytes % (A) 23 %; MCH 29.8 pg (25.0-35.0); MCHC 29.9 g/dL (31.0-37.0); Macrocytosis Moderate; Monocytes # (A) 0.3 k/uL (0-1.0); Monocytes % (A) 4 %; Neutrophils # (A) 4.8 k/uL (1.3-7.7); Neutrophils % (A) 70 %; Platelet Count 101 k/uL (150-450); RBC 3.82 m/uL (3.80-5.40); RDW 19.3 % (11.5-15.5); WBC 6.8 k/uL (3.8-10.6)
[2020-06-16 15:50] LABS: MCV 99.7 fL (80.0-100.0)
--- NOTE | 2020-06-16 17:16 | XR ---
EXAMINATION TYPE: XR foot complete LT DATE OF EXAM: 06/16/2020 COMPARISON: 05/12/2018 HISTORY: Pain. Arthritis. TECHNIQUE: 3 views FINDINGS: There is plantar and Achilles calcaneal spurring. Metatarsals appear intact. I see no fract ure nor dislocation. There are no erosions. There is no subluxation. IMPRESSION: No fracture. No evidence of inflammatory arthritis. Calcaneal spurring.
--- NOTE | 2020-06-16 17:25 | XR ---
EXAMINATION TYPE: XR hand complete bilateral DATE OF EXAM: 06/16/2020 COMPARISON: NONE HISTORY: Arthritis TECHNIQUE: 3 views each hand FINDINGS: There is some osteopenia. The carpal bones are intact. Metacarpals are intact. There are no erosions. There is no subluxation. Joint spaces overall are fairly well-maintained in the fingers. T here is no evidence of focal bone destruction. There is some mild narrowing and spurring at the left side radiocarpal joint. There is narrowing of left side scaphoid trapezium joint space with mild spur ring. There is some deformity of the proximal phalanx of the left little finger consistent with an ol d healed fracture. IMPRESSION: Mild osteoarthritic changes in the radiocarpal joint of the left hand. No specific eviden ce of inflammatory arthritis. Osteopenia.
--- NOTE | 2020-06-16 17:27 | XR ---
EXAMINATION TYPE: XR chest 2V DATE OF EXAM: 06/16/2020 COMPARISON: 04/23/2020 HISTORY: Chest pain TECHNIQUE: 2 views FINDINGS: There is no heart failure nor confluent pneumonic infiltrate. There is osteopenia. There is multiple bilateral old rib fractures. There is right shoulder prosthesis. Costophrenic angles are cl ear. Heart size is normal. There is generalized osteopenia. IMPRESSION: No active cardiopulmonary disease. Normal heart. No change.
--- NOTE | 2020-06-16 19:30 | XR ---
EXAMINATION TYPE: XR wrist limited LT DATE OF EXAM: 06/16/2020 COMPARISON: None HISTORY: G 60.9, M 6.9 TECHNIQUE: 2 view right wrist FINDINGS: Appears a prior avulsion of the ulnar styloid. A small secondary ossification center may re main present. Navicular is not well visualized. Obvious fracture is not identified. Old fracture of t he distal radius is likely present. There is diffuse soft tissue swelling present. Some dorsal angula tion of the proximal carpal row may be present. Structures are osteoporotic. Occult fracture may be d ifficult to identify. IMPRESSION: 1. Old radial fracture. 2. Osteoporosis. 3. No acute fractures evident.
[2020-06-16 23:15] LABS: Erythrocyte Sedimentation Rate 26 mm/Hr (0-30)
[2020-06-17 00:34] LABS: Hepatitis C IgG Antibody Non-Reactive (Non-Reactive)
[2020-06-17 02:12] LABS: ALT 23 U/L (8-44); AST 29 U/L (13-35); African American GFR (CKD) 111.5 (60.0-200.0); Alkaline Phosphatase 193 U/L (41-126); BUN/Creat Ratio 11.43 Ratio (12.00-20.00); C Reactive Protein 1.5 mg/dL (0.0-0.8); Calcium 8.4 mg/dL (8.7-10.3); Carbon Dioxide 27.8 mmol/L (21.6-31.8); Chloride 107 mmol/L (96-109); Creatine Kinase <20 U/L (26-186); Globulin 2.5 g/dL (1.6-3.3); Glucose 98 mg/dL (70-110); Non-African American GFR(CKD) 96.2 (60.0-200.0); Potassium 2.8 mmol/L (3.5-5.5); Rheumatoid Factor, Qnt 364 IU/mL (0-15); Sodium 142 mmol/L (135-145); Total Protein 5.5 g/dL (6.2-8.2)
[2020-06-17 07:23] LABS: Anti-DNA, DS unit <1.0 IU/mL; Anti-Smith Ab Interp NEGATIVE (NEGATIVE); Cyclic Citrull Pep IgG Unit 28.1 U/mL; Cyclic Citrullinated Pep IgG POSITIVE (NEGATIVE); DNA Double-Stranded NEGATIVE (NEGATIVE)
== END | disposition home or self-care (01) ==
LOC: LABWHC1 14:48
PROVIDERS: ATTEND Internal Medicine Rheumatology
DX: G60.9 Hereditary and idiopathic neuropathy, unspecified (principal); M06.9 Rheumatoid arthritis, unspecified; M77.32 Calcaneal spur, left foot; M19.042 Primary osteoarthritis, left hand; M85.89 Other specified disorders of bone density and structure, multiple sites
CPT/HCPCS: 36415; 71046; 80053; 82164; 82550; 85025; 85652; 86038; 86140; 86200; 86225; 86235; 86431; 86803

== ENCOUNTER 2020-07-18 16:09 | Inpatient (IN) | payer MEDICARE, OTHER ==
[2020-07-18 17:07] LABS: Partial Thromboplastin Time 22.3 sec (22.0-30.0); Prothrombin Time 10.4 sec (9.0-12.0)
[2020-07-18 17:08] LABS: ALT 39 U/L (4-34); AST 78 U/L (14-36); African American GFR (CKD) >90 (>60 ml/min/1.73 sqM); Albumin 3.2 g/dL (3.5-5.0); Alkaline Phosphatase 201 U/L (38-126); Anion Gap 6 mmol/L; Blood Urea Nitrogen 8 mg/dL (7-17); Calcium 8.8 mg/dL (8.4-10.2); Carbon Dioxide 25 mmol/L (22-30); Chloride 104 mmol/L (98-107); Glucose 104 mg/dL (74-99); Non-African American GFR(CKD) >90 (>60 ml/min/1.73 sqM); Potassium 3.2 mmol/L (3.5-5.1); Sodium 135 mmol/L (137-145); Total Bilirubin 3.4 mg/dL (0.2-1.3); Total Protein 6.6 g/dL (6.3-8.2)
[2020-07-18 17:13] LABS: Anisocytosis Slight; Basophils # (A) 0.1 k/uL (0-0.2); Basophils % (A) 1 %; Eosinophils # (A) 0.2 k/uL (0-0.7); Eosinophils % (A) 2 %; HCT 41.5 % (34.0-46.0); HGB 12.3 gm/dL (11.4-16.0); Hypochromasia Marked; Lymphocytes # (A) 2.5 k/uL (1.0-4.8); Lymphocytes % (A) 26 %; MCH 30.6 pg (25.0-35.0); MCHC 29.7 g/dL (31.0-37.0); MCV 103.1 fL (80.0-100.0); Macrocytosis Moderate; Mean Platelet Volume 13.4; Monocytes # (A) 0.5 k/uL (0-1.0); Monocytes % (A) 5 %; Neutrophils # (A) 6.2 k/uL (1.3-7.7); Neutrophils % (A) 64 %; RBC 4.02 m/uL (3.80-5.40); RDW 17.1 % (11.5-15.5); WBC 9.7 k/uL (3.8-10.6)
[2020-07-18] MEDS ORDERED: SODIUM CHLORIDE 0.9% 1,000 ML IV ONE (17:16)
[2020-07-18] MEDS ORDERED: POTASSIUM CHLORIDE 20 MEQ in WATER FOR INJECTION 1 100ML.BAG IVPB STA (18:30)
[2020-07-18] MEDS ORDERED: diphenhydrAMINE 50 MG/ML 1 ML VIAL IVP STA (18:30)
[2020-07-18] MEDS ORDERED: METOCLOPRAMIDE 5 MG/ML 2 ML VIAL IVP STA (18:30)
[2020-07-18 18:41] LABS: Appearance,Urine Cloudy (Clear); Bacteria,Urine Many /hpf; Bilirubin,Urine 1+ (Negative); Blood,Urine Negative (Negative); Color,Urine Dark Yellow; Glucose,Urine (UA) Negative (Negative); Hyaline Casts,Urine 3 /lpf (0-2); Ketones,Urine Negative (Negative); Leukocyte Esterase,Urine Large (Negative); Mucus,Urine Occasional /hpf; Nitrite,Urine Positive (Negative); Protein,Urine Trace (Negative); RBC,Urine 5 /hpf (0-5); Specific Gravity,Urine 1.011 (1.001-1.035); Squamous Epithelial Cell,Urine 1 /hpf (0-4); WBC,Urine 34 /hpf (0-5)
--- NOTE | 2020-07-18 19:08 | CT ---
EXAMINATION TYPE: CT abdomen pelvis w con DATE OF EXAM: 07/18/2020 COMPARISON: 03/31/2020 HISTORY: Abdominal pain CT DLP: 848.8 mGycm Automated exposure control for dose reduction was used. CONTRAST: Performed with IV Contrast, patient injected with 100 mL of Isovue 300. There is some patchy atelectasis at the lung bases. Heart size is normal. There is no pericardial eff usion. There is no pleural effusion. There is extensive fatty infiltration of the liver. Spleen is intact. There is no pancreatic mass. St omach is intact. Gallbladder has normal size. The bile ducts are not dilated. There is no adrenal mass. Kidneys have normal size. There is no hydronephrosis. There are 2 small jaden culi upper pole left kidney measures 3 mm. There is 3 mm calculus posterior right kidney. Ureters are not dilated. There is no retroperitoneal adenopathy. Bladder distends smoothly. There is no inguinal hernia. Uterus is anteverted. There is no evidence of a pelvic mass. There is no free fluid in the p [place]. There is some fatty infiltration of the wall of the ascending colon. There is no mesenteric edema. Th ere is no ascites or free air. There is no bowel obstruction. There is multilevel lumbar spondylotic changes. There is 15% compression deformity of L4 vertebra. Th ere is 50% compression of L1 vertebra. The bony pelvis is intact. Hip joints are intact. Appendix is not seen. There is no sign of thickened appendix. IMPRESSION: Compression fractures of L1 and L4 unchanged compared to old exam. No acute fracture. Fatty infiltration of the right colon unchanged. Nonobstructing renal calculi appear increased compared to old exam.
[2020-07-18] MEDS ORDERED: cefTRIAXone IN SWFI 1,000 MG/10 ML SYRINGE IVP STA (19:34)
[2020-07-18] MEDS ORDERED: NALOXONE 0.4 MG/ML 1 ML VIAL IV PRN (20:03)
[2020-07-18] MEDS ORDERED: ONDANSETRON 4 MG/2 ML VIAL IVP PRN (20:03)
--- NOTE | 2020-07-18 20:03 | ED ---
Nausea/Vomiting/Diarrhea HPI - General Chief complaint: Nausea/Vomiting/Diarrhea Stated complaint: stiffness Time Seen by Provider: 07/18/20 16:22 Source: patient Mode of arrival: ambulatory Limitations: no limitations - History of Present Illness Initial comments: Patient is a 59-year-old female with past medical history of diabetes, hypertension, rheumatoid arthritis who presents to the emergency department with reported diffuse myalgias, nausea and vomiting. The patient has been seen multiple times in the emergency department for similar complaint. at bedside helps supplement the history. He states the patient hasn't ate anything and one week. She has had a poor appetite and any time she attempts to eat she will vomit. She has a history of gastroparesis and has Zofran at home. Attempted to take this medication without improvement. Has been unable to hold anything down including water. The patient reports it as lead to generalized weakness. She normally ambulates with a walker and has assistance with a wheelchair because of her right BKA. states that she's been unable to ambulate with her walker at all. She denies any abdominal pain. No fevers or chills. Denies cough. Denies any changes in her urination to include dysuria, hematuria or difficulty voiding. Admits to constipation. No chest pain or shor tness of breath. Recently started Humara for her RA. No other alleviating, precipitating or modifying factors - Related Data Home Medications Medication Instructions Recorded Confirmed metHOTREXate sodium [Methotrexate] 7.5 mg PO WE 04/27/18 07/18/20 ARIPiprazole [Abilify] 20 mg PO HS 07/09/19 07/18/20 FLUoxetine HCL [PROzac] 20 mg PO DAILY 07/09/19 07/18/20 Potassium Chloride ER [K-Dur 20] 20 meq PO BID 07/09/19 07/18/20 Lacosamide [Vimpat] 50 mg PO DAILY 03/31/20 07/18/20 Omeprazole 20 mg PO DAILY 03/31/20 07/18/20 Ondansetron HCl [Zofran] 8 mg PO DAILY PRN 03/31/20 07/18/20 Adalimumab [Humira(Cf) Pen] 40 mg SQ Q14D 07/18/20 07/18/20 Folic Acid 1 mg PO DAILY 07/18/20 07/18/20 Previous Rx's Medication Instructions Recorded Sulfamethox-Tmp 800-160Mg [Bactrim 1 tab PO Q12HR #4 tab 07/21/20 DS 800-160 mg] Allergies Allergy/AdvReac Type Severity Reaction Status Date / Time No Known Allergies Allergy Verified 07/18/20 20:21 Review of Systems ROS Statement: Those systems with pertinent positive or pertinent negative responses have been documented in the HPI. ROS Other: All systems not noted in ROS Statement are negative. Past Medical History Past Medical History: Diabetes Mellitus, GERD/Reflux, Hypertension, Osteoarthritis (OA), Rheumatoid Arthritis (RA), Vascular Disorder Additional Past Medical History / Comment(s): neuropathy ,Vitiligo, Raynaud's ,peripheral neuropathy. hx cellulitis lt lower leg, pt states hx of ulcers with right BKA.- wears prosthesis., Hx colon polyps., denies current diabetes and htn. History of Any Multi-Drug Resistant Organisms: MRSA Date of last positivie culture/infection: 06/11/12 MDRO Source:: lt axilla Past Surgical History: Appendectomy, Section, Joint Replacement, Orthopedic Surgery, Tonsillectomy, Tubal Ligation Additional Past Surgical History / Comment(s): right shoulder replacement, right leg BK amputation Past Anesthesia/Blood Transfusion Reactions: No Reported Reaction Past Psychological History: Depression Smoking Status: Current every day smoker Past Alcohol Use History: Daily Past Drug Use History: None Reported - Past Family History Mother Family Medical History: No Reported History, Diabetes Mellitus, Hyperlipidemia, Hypertension Father Family Medical History: Diabetes Mellitus, Hypertension Sister(s) Family Medical History: No Reported History Son(s) Family Medical History: No Reported History General Exam Limitations: no limitations General appearance: alert, in no apparent distress Head exam: Present: atraumatic, normocephalic, normal inspection Eye exam: Present: normal appearance, PERRL, EOMI. Absent: scleral icterus, conjunctival injection, periorbital swelling ENT exam: Present: mucous membranes dry, other (multiple external oral lesions) Neck exam: Present: normal inspection. Absent: tenderness, meningismus, lymphadenopathy Respiratory exam: Present: normal lung sounds bilaterally. Absent: respiratory distress, wheezes, rales, rhonchi, stridor Cardiovascular Exam: Present: normal rhythm, tachycardia, normal heart sounds. Absent: systolic murmur, diastolic murmur, rubs, gallop, clicks GI/Abdominal exam: Present: soft, normal bowel sounds. Absent: distended, tenderness, guarding, rebound, rigid Extremities exam: Present: normal capillary refill, other (bka right lower extremity). Absent: tenderness, pedal edema, joint swelling, calf tenderness Back exam: Present: normal inspection Neurological exam: Present: alert, oriented X3, CN II-XII intact Psychiatric exam: Present: normal mood, flat affect Skin exam: Present: warm, dry, intact, normal color. Absent: rash Course Vital Signs 07/18/20 07/18/20 07/18/20 16:11 17:30 18:00 Temperature 98.2 F Pulse Rate 105 H 93 Respiratory 18 18 18 Rate Blood Pressure 104/66 111/77 111/75 O2 Sat by Pulse 98 97 96 Oximetry 07/18/20 18:30 Temperature Pulse Rate 92 Respiratory 18 Rate Blood Pressure 120/74 O2 Sat by Pulse 94 L Oximetry Medical Decision Making - Medical Decision Making Upon arrival the patient is placed into room 15. A thorough history and p hysical exam was performed. Peripheral IV was established. Patient was given a liter bolus of normal saline, 10 mg of Reglan and 25 mg of Benadryl. Laboratory studies were conducted. They do results and the patient has a sodium of 135, potassium 3.2. AST, ALC and alk phos are elevated. Urinalysis is positive for nitrates, large leukocyte esterase, 34 white blood cells and few white blood darian l clumps. Patient was given a dose of Rocephin. no signs of DKA. Patient was sent for a CT of her abdomen and pelvis because of her abnormal lab studies. Demonstrates compression fractures of L1 and L4 which are unchanged. Fatty infiltration of the right colon. Nonobstructing renal calculi. No signs of ureterolithiasis. I discussed the result findings with the patient. Her feels comfortable taking her home and she has been weak with difficulties with mobility. I did call discuss the case with Dr. Saab who accepted admission for the patient. Patient was transferred to floor in stable condition - Lab Data Result diagrams: 07/21/20 08:53 07/21/20 08:53 Lab Results 07/18/20 07/18/20 07/18/20 Range/Units 16:47 16:47 16:47 WBC 9.7 (3.8-10.6) k/uL RBC 4.02 (3.80-5.40) m/uL Hgb 12.3 (11.4-16.0) gm/dL Hct 41.5 (34.0-46.0) % MCV 103.1 H (80.0-100.0) fL MCH 30.6 (25.0-35.0) pg MCHC 29.7 L (31.0-37.0) g/dL RDW 17.1 H (11.5-15.5) % Plt Count (150-450) k/uL Neutrophils % 64 % Lymphocytes % 26 % Monocytes % 5 % Eosinophils % 2 % Basophils % 1 % Neutrophils # 6.2 (1.3-7.7) k/uL Lymphocytes # 2.5 (1.0-4.8) k/uL Monocytes # 0.5 (0-1.0) k/uL Eosinophils # 0.2 (0-0.7) k/uL Basophils # 0.1 (0-0.2) k/uL Manual Slide Review Performed Hypochromasia Marked Anisocytosis Slight Macrocytosis Moderate PT (9.0-12.0) sec INR (<1.2) APTT (22.0-30.0) sec Sodium 135 L (137-145) mmol/L Potassium 3.2 L (3.5-5.1) mmol/L Chloride 104 (98-107) mmol/L Carbon Dioxide 25 (22-30) mmol/L Anion Gap 6 mmol/L BUN 8 (7-17) mg/dL Creatinine 0.67 (0.52-1.04) mg/dL Est GFR (CKD-EPI)AfAm >90 (>60 ml/min/1.73 sqM) Est GFR (CKD-EPI)NonAf >90 (>60 ml/min/1.73 sqM) Glucose 104 H (74-99) mg/dL Plasma Lactic Acid Al (0.7-2.0) mmol/L Calcium 8.8 (8.4-10.2) mg/dL Total Bilirubin 3.4 H (0.2-1.3) mg/dL AST 78 H (14-36) U/L ALT 39 H (4-34) U/L Alkaline Phosphatase 201 H (38-126) U/L Total Protein 6.6 (6.3-8.2) g/dL Albumin 3.2 L (3.5-5.0) g/dL Lipase 25 (23-300) U/L TSH 1.120 (0.465-4.680) mIU/L Urine Color Dark Yellow Urine Appearance Cloudy H (Clear) Urine pH 7.0 (5.0-8.0) Ur Specific [place] 1.011 (1.001-1.035) Urine Protein Trace H (Negative) Urine Glucose (UA) Negative (Negative) Urine Ketones Negative (Negative) Urine Blood Negative (Negative) Urine Nitrite Positive H (Negative) Urine Bilirubin 1+ H (Negative) Urine Urobilinogen 12.0 (<2.0) mg/dL Ur Leukocyte Esterase Large H (Negative) Urine RBC 5 (0-5) /hpf Urine WBC 34 H (0-5) /hpf Urine WBC Clumps Few H (None) /hpf Ur Squamous Epith Cells 1 (0-4) /hpf Urine Bacteria Many H (None) /hpf Hyaline Casts 3 H (0-2) /lpf Urine Mucus Occasional H (None) /hpf Acetone, Qual Negative (Negative) 07/18/20 07/18/20 Range/Units 16:47 16:47 WBC (3.8-10.6) k/uL RBC (3.80-5.40) m/uL Hgb (11.4-16.0) gm/dL Hct (34.0-46.0) % MCV (80.0-100.0) fL MCH (25.0-35.0) pg MCHC (31.0-37.0) g/dL RDW (11.5-15.5) % Plt Count (150-450) k/uL Neutrophils % % Lymphocytes % % Monocytes % % Eosinophils % % Basophils % % Neutrophils # (1.3-7.7) k/uL Lymphocytes # (1.0-4.8) k/uL Monocytes # (0-1.0) k/uL Eosinophils # (0-0.7) k/uL Basophils # (0-0.2) k/uL Manual Slide Review Hypochromasia Anisocytosis Macrocytosis PT 10.4 (9.0-12.0) sec INR 1.0 (<1.2) APTT 22.3 (22.0-30.0) sec Sodium (137-145) mmol/L Potassium (3.5-5.1) mmol/L Chloride (98-107) mmol/L Carbon Dioxide (22-30) mmol/L Anion Gap mmol/L BUN (7-17) mg/dL Creatinine (0.52-1.04) mg/dL Est GFR (CKD-EPI)AfAm (>60 ml/min/1.73 sqM) Est GFR (CKD-EPI)NonAf (>60 ml/min/1.73 sqM) Glucose (74-99) mg/dL Plasma Lactic Acid Al 1.6 (0.7-2.0) mmol/L Calcium (8.4-10.2) mg/dL Total Bilirubin (0.2-1.3) mg/dL AST (14-36) U/L ALT (4-34) U/L Alkaline Phosphatase (38-126) U/L Total Protein (6.3-8.2) g/dL Albumin (3.5-5.0) g/dL Lipase (23-300) U/L TSH (0.465-4.680) mIU/L Urine Color Urine Appearance (Clear) Urine pH (5.0-8.0) Ur Specific [place] (1.001-1.035) Urine Protein (Negative) Urine Glucose (UA) (Negative) Urine Ketones (Negative) Urine Blood (Negative) Urine Nitrite (Negative) Urine Bilirubin (Negative) Urine Urobilinogen (<2.0) mg/dL Ur Leukocyte Esterase (Negative) Urine RBC (0-5) /hpf Urine WBC (0-5) /hpf Urine WBC Clumps (None) /hpf Ur Squamous Epith Cells (0-4) /hpf Urine Bacteria (None) /hpf Hyaline Casts (0-2) /lpf Urine Mucus (None) /hpf Acetone, Qual (Negative) Disposition Clinical Impression: Nausea and vomiting, Hypokalemia, Failure to thrive, Weakness, Falls, UTI (urinary tract infection) Disposition: ADMITTED IP TO THIS [facility] Condition: Stable Is patient prescribed a controlled substance at d/c from ED?: No Decision to Admit Reason: Admit from EC Decision Date: 07/18/20 Decision Time: 20:03
[2020-07-18 21:26] LABS: Glucose,Whole Blood 84 mg/dL (75-99)
[2020-07-18] MEDS: ERYTHROMYCIN 5 MG/GM OPHTH OINT 3.5 GM TUBE BOTH EYES SCH (21:55)
[2020-07-18] MEDS: PANTOPRAZOLE 40 MG/10 ML VIAL IV SCH (21:55)
[2020-07-18] MEDS: SODIUM CHLORIDE 0.9% 1,000 ML IV SCH (21:55)
[2020-07-18] MEDS ORDERED: METOCLOPRAMIDE 10 MG TAB PO PRN (23:54)
--- NOTE | 2020-07-19 00:13 | P.HPIM ---
History of Present Illness H&P Date: 07/18/20 Chief Complaint: nausea and vomiting 59 year old female with hypertension , RA, vascular disorder patient comes in with 1 week history of repeated nausea and vomiting, denies any abd pain , except for epigstric slight discomfort, denies any bloody or bilious vomiting. she could not tolerate PO intake, patient could not even tolerate water today. she reports recent diagnosis of DM about a year ago, she is not currently on medications for DM. patient reports subjective weight loss, and claims that these episodes has happened in the past. she is sort of poor historian, have poor insight of her health , cant give me straight answer regarding her medical history , or why she had foot ulcers that resulted in BKA. she does not know her medications that she takes at home. however, denies any fever, chillls, URI, chest pain , or trouble breathing. denies any diarrhea or recent travel. denies any urinary symptoms , hematuria , or vaginal discharge. in the ED she had a CT of the abd , showed unchanged vertebral compression fracture. blood work showed low K patient received ABx in the ED. Review of Systems Pertinent positives as noted in HPI. All other systems were reviewed and are negative Past Medical History Past Medical History: Diabetes Mellitus, GERD/Reflux, Hypertension, Osteoarthr itis (OA), Rheumatoid Arthritis (RA), Vascular Disorder Additional Past Medical History / Comment(s): neuropathy, Vitiligo, Raynaud's, peripheral neuropathy. hx cellulitis lt lower leg, pt states hx of ulcers rt lower leg, right BKA [id number]. Wears prosthesis. Hx colon polyps. History of Any Multi-Drug Resistant Organisms: MRSA Date of last positivie culture/infection: 1998 MDRO Source:: right lower leg Past Surgical History: Appendectomy, Section, Hysterectomy, Joint Replacement, Orthopedic Surgery, Tonsillectomy, Tubal Ligation Additional Past Surgical History / Comment(s): right shoulder replacement, right leg BK amputation [id number] Past Anesthesia/Blood Transfusion Reactions: No Reported Reaction Past Psychological History: Depression Additional Psychological History / Comment(s): . Originally from [place] been here for many years. Does not work outside of the homeUsed to work in a [employer]. Ongoing tobacco use- 1/2 ppd. No recent travel. No animal exposures Smoking Status: Current every day smoker Past Alcohol Use History: Daily Additional Past Alcohol Use History / Comment(s): started smoking at age 16 used to smoke 1 ppd now less than 1/2 ppd. states drink 1 beer a day or maybe a mixed drink Past Drug Use History: None Reported - Past Family History Mother Family Medical History: Diabetes Mellitus, Hyperlipidemia, Hypertension Father Family Medical History: Diabetes Mellitus, Hypertension Sister(s) Family Medical History: No Reported History Son(s) Family Medical History: No Reported History Medications and Allergies Home Medications Medication Instructions Recorded Confirmed Type metHOTREXate sodium [Methotrexate] 7.5 mg PO WE 04/27/18 07/18/20 History ARIPiprazole [Abilify] 20 mg PO HS 07/09/19 07/18/20 History FLUoxetine HCL [PROzac] 20 mg PO DAILY 07/09/19 07/18/20 History Potassium Chloride ER [K-Dur 20] 20 meq PO BID 07/09/19 07/18/20 History Lacosamide [Vimpat] 50 mg PO DAILY 03/31/20 07/18/20 History Omeprazole 20 mg PO DAILY 03/31/20 07/18/20 History Ondansetron HCl [Zofran] 8 mg PO DAILY PRN 03/31/20 07/18/20 History Adalimumab [Humira Pen] 40 mg SQ Q14D 07/18/20 07/18/20 History Folic Acid 1 mg PO DAILY 07/18/20 07/18/20 History Allergies Allergy/AdvReac Type Severity Reaction Status Date / Time No Known Allergies Allergy Verified 07/18/20 20:21 Physical Exam Vitals: Vital Signs Temp Pulse Pulse Resp BP BP Pulse Ox 07/18/20 20:56 98.4 F 91 19 120/82 98 07/18/20 18:30 92 18 120/74 94 L 07/18/20 18:00 18 111/75 96 07/18/20 17:30 93 18 111/77 97 07/18/20 16:11 98.2 F 105 H 18 104/66 98 Intake and Output 07/18/20 07/18/20 07/18/20 06:59 14:59 22:59 Other: Weight 66.678 kg Constitutional: No acute distress, conversant, pleasant, patient looks older than stated age. Eyes: Anicteric sclerae, moist conjunctiva, Pupils equal round reactive to light ENMT: NC/AT Oropharynx clear, no erythema, or exudates, angular stomatitis Neck: Supple, FROM, no masses, or JVD No carotid bruits No thyromegaly Lungs: Clear to auscultation Clear to percussion Normal respiratory effort, no accessory muscle use Cardiovascular: Heart regular in rate and rhythm, No murmurs, gallops, or rubs No peripheral edema Abdominal: Soft Nontender, no guarding, rebound or rigidity Abdomen moving with respiration Normoactive bowel sounds No hepatomegaly, No splenomegaly No palpable mass No abdominal wall hernia noted Skin: skin darkening over bilateral upper extremity and upper chest , patient claimed its tanning, otherwise, Normal temperature, tone, texture, turgor No induration No subcutaneous nodules No rash, lesions Extremities: right BKA No digital cyanosis No clubbing Pedal pulses intact over left foot Radial pulses intact and symmetrical No calf tenderness Psychiatric: Alert and oriented to person, place and time Appropriate affect fair judgement Neuro Muscles Strength 4/5 in all 4 extremities Sensation to light touch grossly present throughout Cranial nerves II-XII grossly intact No focal sensory deficits Lymphatics: no palpable cervical or supraclavicular , or inguinal lymph nodes Results CBC & Chem 7: 07/18/20 16:47 07/18/20 16:47 Labs: Abnormal Lab Results - Last 24 Hours (Table) 07/18/20 07/18/20 07/18/20 Range/Units 16:47 16:47 16:47 MCV 103.1 H (80.0-100.0) fL MCHC 29.7 L (31.0-37.0) g/dL RDW 17.1 H (11.5-15.5) % Sodium 135 L (137-145) mmol/L Potassium 3.2 L (3.5-5.1) mmol/L Glucose 104 H (74-99) mg/dL Total Bilirubin 3.4 H (0.2-1.3) mg/dL AST 78 H (14-36) U/L ALT 39 H (4-34) U/L Alkaline Phosphatase 201 H (38-126) U/L Albumin 3.2 L (3.5-5.0) g/dL Urine Appearance Cloudy H (Clear) Urine Protein Trace H (Negative) Urine Nitrite Positive H (Negative) Urine Bilirubin 1+ H (Negative) Ur Leukocyte Esterase Large H (Negative) Urine WBC 34 H (0-5) /hpf Urine WBC Clumps Few H (None) /hpf Urine Bacteria Many H (None) /hpf Hyaline Casts 3 H (0-2) /lpf Urine Mucus Occasional H (None) /hpf Assessment and Plan Assessment: repeated nausea and vomiting elevated liver enzymes supportive care IVF hydration zofran for N&V reglan for possible gastroparesis PPI GI consult diet as tolerated check liver US follow up liver enzymes hypokalemia replace follow up K and Mg level patient denies urinary symptoms s/p one dose of ABx monitor off ABx follow up culture angular stomatitis macrocytosis check vit b12 level verify home meds chronic conditions hypertension RA CODE STATUS:full code DVT prophylaxis: heaprin sc tid Discussed with: Patient, ER, RN Anticipated length of stay < than [address]: home A total of 65 minutes was spent on the care of this complex patient more than 50% of the time was spent in counseling and care coordination.
[2020-07-19] MEDS: ERYTHROMYCIN 5 MG/GM OPHTH OINT 3.5 GM TUBE BOTH EYES SCH ×5 (01:54→23:23)
[2020-07-19] MEDS ORDERED: ACETAMINOPHEN TAB 325 MG TAB PO STA (06:33)
[2020-07-19 07:14] LABS: Glucose,Whole Blood 78 mg/dL (75-99)
[2020-07-19] MEDS: SODIUM CHLORIDE 0.9% 1,000 ML IV SCH ×2 (07:36→19:33)
[2020-07-19] MEDS: PANTOPRAZOLE 40 MG/10 ML VIAL IV SCH (07:37)
[2020-07-19 08:10] LABS: African American GFR (CKD) >90 (>60 ml/min/1.73 sqM); Anion Gap 4 mmol/L; Blood Urea Nitrogen 5 mg/dL (7-17); Calcium 7.4 mg/dL (8.4-10.2); Carbon Dioxide 23 mmol/L (22-30); Chloride 111 mmol/L (98-107); Glucose 72 mg/dL (74-99); Magnesium 1.7 mg/dL (1.6-2.3); Non-African American GFR(CKD) >90 (>60 ml/min/1.73 sqM); Sodium 138 mmol/L (137-145)
[2020-07-19 08:24] LABS: Potassium 2.7 mmol/L (3.5-5.1)
[2020-07-19 08:25] LABS: Anisocytosis Slight; Basophils # (A) 0.1 k/uL (0-0.2); Basophils % (A) 1 %; Eosinophils # (A) 0.1 k/uL (0-0.7); Eosinophils % (A) 2 %; HCT 35.3 % (34.0-46.0); HGB 10.2 gm/dL (11.4-16.0); Hypochromasia Marked; Lymphocytes # (A) 1.1 k/uL (1.0-4.8); Lymphocytes % (A) 11 %; MCH 30.7 pg (25.0-35.0); MCHC 28.9 g/dL (31.0-37.0); MCV 106.2 fL (80.0-100.0); Macrocytosis Marked; Mean Platelet Volume 9.2; Monocytes # (A) 0.3 k/uL (0-1.0); Monocytes % (A) 3 %; Neutrophils % (A) 82 %; RBC 3.32 m/uL (3.80-5.40); RDW 16.8 % (11.5-15.5); WBC 9.7 k/uL (3.8-10.6)
--- NOTE | 2020-07-19 08:51 | US ---
EXAMINATION TYPE: US liver DATE OF EXAM: 07/19/2020 COMPARISON: CT abdomen pelvis 07/18/2020 CLINICAL HISTORY: Elevated liver enzymes. Nausea. EXAM MEASUREMENTS: Liver Length: 20.1 cm Gallbladder Wall: 0.1 cm CBD: 0.5 cm Right Kidney: 11.5 x 4.0 x 5.2 cm Pancreas: Visualized portions normal Liver: Fatty liver with coarsened echotexture. There is poor penetration of the posterior liver. Gallbladder: There is large volume gallbladder sludge. No gallbladder wall thickening. There is mild pericholecystic edema. Trauma Director reports negative sonographic Rendon sign. CBD: Normal Right Kidney: Normal IMPRESSION: 1. Fatty enlarged liver with coarsened echotexture. Poor visualization of the posterior liver due to beam attenuation. 2. Large volume gallbladder sludge. No gallbladder wall thickening or sonographic Rendon sign. There is small pericholecystic edema, which may be due to liver disease. If there is clinical concern for a cute cholecystitis, recommend nuclear medicine HIDA scan. 3. No biliary ductal dilatation.
[2020-07-19] MEDS: POTASSIUM BICARBONATE/CIT AC 20 MEQ TABLET.EFF PO ONE ×4 (09:03→14:37)
[2020-07-19 09:10] LABS: Total Bilirubin 2.7 mg/dL (0.2-1.3)
[2020-07-19 09:25] LABS: Platelet Count 94 k/uL (150-450)
--- NOTE | 2020-07-19 09:47 | P.PN ---
Subjective Progress Note Date: 07/19/20 Principal diagnosis: abdominal pain Patient is a 59-year-old female past medical history of diabetes mellitus, rheumatoid arthritis on Humira, and prior right BKA who presented to the hospital complaining of intractable nausea and vomiting and abdominal pain. On arrival to the ER she was tachycardic with a pulse of 105. Initial laboratory analysis showed potassium 3.2, bilirubin 3.4, AST 78, ALT 39, urinalysis had 34 white blood cells. She underwent a CT abdomen and pelvis which confirmed known old prior L1 and L4 compression fractures, fatty infiltration of the right colon which is unchanged, and nonobstructing renal calculi. She was started on IV fluids, antiemetics, and IV Protonix. She was admitted for further monitoring. She underwent a liver ultrasound which demonstrated fatty enlargement of the liver with coarse echotexture, large volume gallbladder sludge without wall thickening with small pericholecystic edema if concerns for acute cholecystitis day recommended HIDA scan, and no biliary duct dilatation. On the morning of 07/19 her bilirubin was down to 2.7, AST 56. Her potassium was low at 2.7 and magnesium 1.7. Patient is seen and examined at bedside. She reports that her abdominal pain is somewhat better than yesterday. Her nausea has resolved. She is feeling slightly improved. No diarrhea or constipation. No chest pain or shortness of breath. She is unable to tell me whether she is still on palliative care with [facility]. She does confirm that she wants to be a DO NOT RESUSCITATE. I called her who states she was on palliative care with [facility] but has been discharged from their services. He reports that he was trying to help her with her medications however she does not take them consistently, forgets to call in refills, and then takes medications she has been taken off of. He no longer attempt to help her with medications. He reports that she has had nausea vomiting and inability to keep anything down orally for the last 1 week. He also reports that she has had increasing confusion. General: Ill appearing [no distress], [appears older than stated age] Derm: [warm], [dry] Head: [atraumatic], [normocephalic], [symmetric] Eyes: [EOMI], [no lid lag], [anicteric sclera] Mouth: [no lip lesion], [mucus membranes moist] Cardiovascular: [S1S2 reg], [no murmur], [positive posterior tibial Left lower extremity], Lungs: [CTA bilateral], [no rhonchi, no rales] , [no accessory muscle use] Abdominal: [soft], [+tender to palpation RUQ and LUQ], [no guarding], [no appreciable organomegaly] Ext: [no gross muscle atrophy], [no edema], [no contractures] Neuro: [ CN II-XI grossly intact], [no focal neuro deficits] Psych: [Alert], [oriented], [appropriate affect] Intractable nausea and vomiting with gallbladder sludge - hx of gastritis on EGD - Check HIDA scan, if positive consult surgery - IVF fluids, PPI, antiemetics - Recent Gastric emptying study 05/2020 was normal - check MTX level Transaminitis with enlarged fatty liver - follow LFTs - check MTX level - IVF - GI consult - Check HIDA - Hepatitis panel just checked 06/24/2020 Hep A IgM negative Hep Bs Ag NR Hep Bs AB NR Hep B core NR Hep C RN CONCURRENT REVIEW Thrombocytopenia - likely reactive vs due to liver disease vs due to MTX - follow CBC - last from 06/16/20 was 101 Toxic metabolic encephalopthy - supportive care - resume home meds - check ammonia level RA - Methotrexate due monday - hold humaria DM 2 - not on medications - slightly hypoglycemic this morning - follow BS Macrocytosis - await B12 levels - suspect due to MTX Chronic: HTN GERD Neuropathy Raynaud's DVT prophylaxis: SCDs Discussed with: patient, nursing Anticipated discharge: 2-[address]: home A total of 35 minutes was spent on the care of this complex patient more than 50% of the time was spent in counseling and care coordination. Objective - Vital Signs Vital signs: Vital Signs Temp 97.9 F 07/19/20 06:42 Pulse 93 07/19/20 06:42 Resp 16 07/19/20 06:42 BP 91/61 07/19/20 06:42 Pulse Ox 92 L 07/19/20 06:42 Intake & Output 07/18/20 07/19/20 07/19/20 18:59 06:59 18:59 Weight 66.678 kg 66.678 kg Other: Voiding Method Toilet Bedpan Diaper # Voids 1 - Labs CBC & Chem 7: 07/19/20 07:32 07/19/20 07:32 Labs: Abnormal Lab Results - Last 24 Hours (Table) 07/18/20 07/18/20 07/18/20 Range/Units 16:47 16:47 16:47 RBC (3.80-5.40) m/uL Hgb (11.4-16.0) gm/dL MCV 103.1 H (80.0-100.0) fL MCHC 29.7 L (31.0-37.0) g/dL RDW 17.1 H (11.5-15.5) % Plt Count (150-450) k/uL Neutrophils # (1.3-7.7) k/uL Macrocytosis Sodium 135 L (137-145) mmol/L Potassium 3.2 L (3.5-5.1) mmol/L Chloride (98-107) mmol/L BUN (7-17) mg/dL Glucose 104 H (74-99) mg/dL Calcium (8.4-10.2) mg/dL Total Bilirubin 3.4 H (0.2-1.3) mg/dL AST 78 H (14-36) U/L ALT 39 H (4-34) U/L Alkaline Phosphatase 201 H (38-126) U/L Albumin 3.2 L (3.5-5.0) g/dL Urine Appearance Cloudy H (Clear) Urine Protein Trace H (Negative) Urine Nitrite Positive H (Negative) Urine Bilirubin 1+ H (Negative) Ur Leukocyte Esterase Large H (Negative) Urine WBC 34 H (0-5) /hpf Urine WBC Clumps Few H (None) /hpf Urine Bacteria Many H (None) /hpf Hyaline Casts 3 H (0-2) /lpf Urine Mucus Occasional H (None) /hpf 07/19/20 07/19/20 07/19/20 Range/Units 07:32 07:32 07:32 RBC 3.32 L (3.80-5.40) m/uL Hgb 10.2 L (11.4-16.0) gm/dL MCV 106.2 H (80.0-100.0) fL MCHC 28.9 L (31.0-37.0) g/dL RDW 16.8 H (11.5-15.5) % Plt Count 94 L (150-450) k/uL Neutrophils # 8.0 H (1.3-7.7) k/uL Macrocytosis Marked A Sodium (137-145) mmol/L Potassium 2.7 L* (3.5-5.1) mmol/L Chloride 111 H (98-107) mmol/L BUN 5 L (7-17) mg/dL Glucose 72 L (74-99) mg/dL Calcium 7.4 L (8.4-10.2) mg/dL Total Bilirubin 2.7 H (0.2-1.3) mg/dL AST 56 H (14-36) U/L ALT (4-34) U/L Alkaline Phosphatase (38-126) U/L Albumin (3.5-5.0) g/dL Urine Appearance (Clear) Urine Protein (Negative) Urine Nitrite (Negative) Urine Bilirubin (Negative) Ur Leukocyte Esterase (Negative) Urine WBC (0-5) /hpf Urine WBC Clumps (None) /hpf Urine Bacteria (None) /hpf Hyaline Casts (0-2) /lpf Urine Mucus (None) /hpf Microbiology - Last 24 Hours (Table) 07/18/20 16:47 Urine Culture - Preliminary Urine,Voided
--- NOTE | 2020-07-19 11:29 | CONS ---
CONSULTATION DATE OF CONSULTATION: 07/19/2020 REQUESTING PHYSICIAN: Dr. Noa Mae. REASON FOR CONSULTATION: Nausea and vomiting of one week duration. HISTORY OF PRESENT ILLNESS: The patient is a 59-year-old pleasant white female with history of severe peripheral vascular disease, diabetes mellitus, hypertension, rheumatoid arthritis, who was admitted to the hospital because of nausea, vomiting for the last one week duration. She also complained of some vague epigastric discomfort but no heartburn. She has been throwing up once or twice a day. Came to the emergency room yesterday and was given some nausea medications as well as PPIs and this morning she is feeling better. She is on a clear liquid diet as per the nursing staff, has been tolerating well. Currently denies any nauseated feeling. She reports no abdominal pain. No rectal bleeding or melena. She has been constipated for the last one week. Normally has 1 or 2 bowel movements daily. PAST MEDICAL HISTORY: Significant for diabetes mellitus diagnosed a year ago, gastroesophageal reflux disease, hypertension, hyperlipidemia, peripheral vascular disease with right above- knee amputation, diabetes mellitus. MEDICATIONS: Medications at home include methotrexate, Abilify, Prozac, K-Dur, Vimpat, omeprazole, Zofran, Humira, folic acid. ALLERGIES: None. SOCIAL HISTORY: Chronic smoker. No alcohol use. FAMILY HISTORY: Mother has diabetes mellitus, hypertension, hyperlipidemia. Father has diabetes. SOCIAL HISTORY: Chronic smoker. No alcohol use. REVIEW OF SYSTEMS: CARDIOPULMONARY: No chest pain, no shortness of breath. : No dysuria hematuria. MUSCULOSKELETAL: Occasional back pain. NEUROLOGY: Chronic headaches. ENT/VISION: Unremarkable. CONSTITUTIONAL: No recent weight loss. No fever, chills, night sweats. HEMATOLOGY: Unremarkable. PSYCHIATRIC: Unremarkable. MUSCULOSKELETAL: Right above-knee amputation and history of rheumatoid arthritis. PHYSICAL EXAMINATION: She appears comfortable. No apparent distress. VITAL SIGNS :Stable. Blood pressure 91/61, pulse rate 93, temperature 97.9. HEENT: Examination unremarkable. Conjunctivae are pink. Sclerae anicteric. Oral cavity no lesions. NECK: No JVD or lymph node enlargement. CHEST: Clear to auscultation. HEART: Regular rate and rhythm. ABDOMEN: Soft, it was nontender, nondistended. Bowel sounds are positive. EXTREMITIES: Right above-knee amputation. SKIN: Multiple bruises throughout the upper extremities. LABS: From today WBC 9.1, hemoglobin 10.2, platelets 94,000. Potassium 2.7, sodium 138, BUN and creatinine normal. T bilirubin is 3.4, AST 78, ALT 39, alkaline phosphatase is 201. Repeat labs T bilirubin is 2.7 now, AST is down to 56, ALT is 31. IMAGING: She did have a CT of the abdomen and pelvis done in the emergency room yesterday that showed extensive fatty infiltration of the liver, compression fractures of the L1 and L4, nonobstructing renal calculi. She also had a liver ultrasound this morning that showed fatty enlarged liver, large volume gallbladder sludge. No gallbladder wall thickening noted. No biliary ductal dilation seen. IMPRESSION: 1. Nausea and vomiting for the last one week duration. Symptoms already improved. This morning she denies any abdominal pain. No further episodes of nausea or vomiting. Tolerating diet well. Currently on Protonix 40 mg daily, as well as Reglan as needed. 2. Elevated LFTs in this lady with no history of chronic liver disease. On review of her labs, her serum transaminases and bilirubin were normal as of a month ago. AST has been intermittently elevated, but ALT has been pretty normal. She is currently on methotrexate for rheumatoid arthritis. Other etiologies for chronic liver disease need to be considered at this time. RECOMMENDATIONS: 1. Advance diet as tolerated. 2. Continue Protonix 40 mg daily. 3. Reglan as needed. 4. We will do hepatitis serologies for A, B and C as well as autoimmune markers. We will follow with you closely. Thank you for this consultation. MMODL / IJN: [id number] /
[2020-07-19 11:41] LABS: Glucose,Whole Blood 89 mg/dL (75-99)
[2020-07-19] MEDS: FOLIC ACID 1 MG TAB PO SCH (14:12)
[2020-07-19] MEDS: LACOSAMIDE 50 MG TABLET PO SCH (14:13)
[2020-07-19] MEDS: FLUoxetine HCL 20 MG CAP PO SCH (14:13)
[2020-07-19] MEDS: POTASSIUM CHLORIDE ER 20 MEQ TAB.ER PO SCH ×2 (14:13→21:12)
--- NOTE | 2020-07-19 14:22 | NM ---
EXAMINATION TYPE: NM hepatobiliary w CCK DATE OF EXAM: 07/19/2020 COMPARISON: NONE HISTORY: Nausea, vomiting, gallbladder sludge TECHNIQUE: After the intravenous administration of 4.8 mCi Tc 99m Mebrofenin hepatobiliary scintigrap hy is performed. Immediate images post injection. FINDINGS: There is satisfactory initial accumulation of tracer by the liver. The gallbladder is visualized wit hin 14 minutes. The small bowel activity is noted within 34 minutes. At one hour CCK was administer ed, patient was injected with 1.34 mcg of Kinevac, and gallbladder ejection fraction is calculated at 6% %, below normal limits (normal is equal to or greater than 35%). IMPRESSION: 1. No acute cholecystitis. 2. Abnormally decreased gallbladder ejection fraction of 6%. Findings may represent chronic cholecyst itis or biliary dyskinesia.
[2020-07-19] MEDS ORDERED: POTASSIUM CHLORIDE 20 MEQ in WATER FOR INJECTION 1 100ML.BAG IVPB STA (14:41)
[2020-07-19] MEDS ORDERED: POTASSIUM CHLORIDE ER 20 MEQ TAB.ER PO STA (14:41)
[2020-07-19 17:02] LABS: Glucose,Whole Blood 150 mg/dL (75-99)
[2020-07-19 17:07] LABS: Ferritin 168.7 ng/mL (10.0-291.0)
[2020-07-19 17:40] LABS: Hemoglobin A1C 4.9 % (4.0-6.0)
[2020-07-19 18:03] LABS: Hepatitis A Antibody IgM Non-Reactive (Non-Reactive); Hepatitis B Core IgM Non-Reactive (Non-Reactive); Hepatitis B Surface Antigen Non-Reactive (Non-Reactive); Hepatitis C IgG Antibody Non-Reactive (Non-Reactive)
[2020-07-19 18:53] LABS: % Iron Saturation 72.63 (12.00-45.00); Iron 130 ug/dL (50-170); Total Iron Binding Capacity 179 ug/dL (228-460)
[2020-07-19 20:14] LABS: Glucose,Whole Blood 150 mg/dL (75-99)
[2020-07-19] MEDS: HEPARIN SODIUM,PORCINE 5,000 UNIT/ML 1 ML VIAL SQ SCH (23:23)
[2020-07-20] MEDS: ERYTHROMYCIN 5 MG/GM OPHTH OINT 3.5 GM TUBE BOTH EYES SCH ×4 (05:15→23:52)
[2020-07-20] MEDS: SODIUM CHLORIDE 0.9% 1,000 ML IV SCH ×2 (05:15→15:38)
[2020-07-20 06:59] LABS: Glucose,Whole Blood 90 mg/dL (75-99)
[2020-07-20] MEDS: FLUoxetine HCL 20 MG CAP PO SCH (07:26)
[2020-07-20] MEDS: PANTOPRAZOLE 40 MG/10 ML VIAL IV SCH (07:27)
[2020-07-20] MEDS: LACOSAMIDE 50 MG TABLET PO SCH (07:27)
[2020-07-20] MEDS: HEPARIN SODIUM,PORCINE 5,000 UNIT/ML 1 ML VIAL SQ SCH ×3 (07:27→23:52)
[2020-07-20] MEDS: FOLIC ACID 1 MG TAB PO SCH (07:27)
[2020-07-20] MEDS: POTASSIUM CHLORIDE ER 20 MEQ TAB.ER PO SCH ×2 (07:27→20:55)
[2020-07-20 08:32] LABS: ALT 32 U/L (4-34); AST 52 U/L (14-36); African American GFR (CKD) >90 (>60 ml/min/1.73 sqM); Alkaline Phosphatase 131 U/L (38-126); Anion Gap 4 mmol/L; Blood Urea Nitrogen 2 mg/dL (7-17); Calcium 7.3 mg/dL (8.4-10.2); Carbon Dioxide 23 mmol/L (22-30); Chloride 114 mmol/L (98-107); Glucose 90 mg/dL (74-99); Non-African American GFR(CKD) >90 (>60 ml/min/1.73 sqM); Sodium 141 mmol/L (137-145); Total Bilirubin 1.5 mg/dL (0.2-1.3); Total Protein 4.5 g/dL (6.3-8.2)
[2020-07-20 08:50] LABS: Potassium 2.5 mmol/L (3.5-5.1)
[2020-07-20] MEDS ORDERED: POTASSIUM BICARBONATE/CIT AC 20 MEQ TABLET.EFF PO ONE (09:02)
[2020-07-20] MEDS: POTASSIUM CHLORIDE 20 MEQ in WATER FOR INJECTION 1 100ML.BAG IVPB SCH ×2 (10:03→12:00)
--- NOTE | 2020-07-20 10:26 | P.PN ---
Subjective Progress Note Date: 07/20/20 Principal diagnosis: abdominal pain Patient is a 59-year-old female past medical history of diabetes mellitus, rheumatoid arthritis on Humira, and prior right BKA who presented to the hospital complaining of intractable nausea and vomiting and abdominal pain. On arrival to the ER she was tachycardic with a pulse of 105. Initial laboratory analysis showed potassium 3.2, bilirubin 3.4, AST 78, ALT 39, urinalysis had 34 white blood cells. She underwent a CT abdomen and pelvis which confirmed known old prior L1 and L4 compression fractures, fatty infiltration of the right colon which is unchanged, and nonobstructing renal calculi. She was started on IV fluids, antiemetics, and IV Protonix. She was admitted for further monitoring. She underwent a liver ultrasound which demonstrated fatty enlargement of the liver with coarse echotexture, large volume gallbladder sludge without wall thickening with small pericholecystic edema if concerns for acute cholecystitis day recommended HIDA scan, and no biliary duct dilatation. On the morning of 07/19 her bilirubin was down to 2.7, AST 56. Her potassium was low at 2.7 and magnesium 1.7. HIDA showed gallbladder EF of 6%. Surgery was consulted. Despite potassium replacement her potassium was 2.5. seen and examined at bedside. She denies any nausea, vomiting, or abdominal pain. She reports that she has been tolerating her diet well. She denies any chest pain or shortness of breath. We discussed that she'll be staying overnight to ensure that her potassium is adequately supplemented. General: non toxic no distress, appears older than stated age Derm: warm, dry Head: atraumatic, normocephalic, symmetric Eyes: EOMI, no lid lag, anicteric sclera Mouth: no lip lesion, mucus membranes moist Cardiovascular: S1S2 reg, no murmur, positive posterior tibial Left lower extremity, Lungs: CTA bilateral, no rhonchi, no rales , no accessory muscle use Abdominal: soft, +tender to palpation RUQ and LUQ, no guarding, no appreciable organomegaly Ext: no gross muscle atrophy, no edema, no contractures Neuro: CN II-XI grossly intact, no focal neuro deficits Psych: Alert, oriented, appropriate affect Intractable nausea and vomiting with gallbladder sludge - hx of gastritis on EGD - Await surgery recs - IVF fluids, PPI, antiemetics - Recent Gastric emptying study 05/2020 was normal - MTX level pending Hypokalemia - IV and oral replacement - recheck at 1230 and in AM - recheck magnesium Transaminitis with enlarged fatty liver - follow LFTs, improving - MTX level pending - IVF - GI recs appreciated - Hepatitis panel just checked 06/24/2020 Hep A IgM negative Hep Bs Ag NR Hep Bs AB NR Hep B core NR Hep C BRAND [employer] Thrombocytopenia - likely reactive vs due to liver disease vs due to MTX - follow CBC - last from 06/16/20 was 101 Toxic metabolic encephalopthy - supportive care - resume home meds - check ammonia level RA - Methotrexate due monday - hold humaria DM 2 - not on medications - slightly hypoglycemic this morning - follow BS Macrocytosis - await B12 levels - suspect due to MTX Chronic: HTN GERD Neuropathy Raynaud's DVT prophylaxis: SCDs Discussed with: patient, nursing Anticipated discharge: in AM Anticipated discharge place: home A total of 25 minutes was spent on the care of this complex patient more than 50% of the time was spent in counseling and care coordination. Objective - Vital Signs Vital signs: Vital Signs Temp 97.9 F 07/20/20 07:00 Pulse 86 07/20/20 07:00 Resp 15 07/20/20 08:00 BP 106/69 07/20/20 07:00 Pulse Ox 94 L 07/20/20 07:00 Intake & Output 07/19/20 07/20/20 07/20/20 18:59 06:59 18:59 Intake Total 1280 Balance 1280 Intake: IV 800 Sodium Chloride 0.9% 1, 800 000 ml @ 100 mls/hr IV . Q10H RUBIA Rx#:[id number] Oral 480 Other: Voiding Method Toilet Toilet Bedpan Bedpan Diaper Diaper # Voids 5 1 - Labs CBC & Chem 7: 07/19/20 07:32 07/20/20 07:23 Labs: Abnormal Lab Results - Last 24 Hours (Table) 07/19/20 07/19/20 07/19/20 Range/Units 07:32 10:23 16:45 Potassium (3.5-5.1) mmol/L Chloride (98-107) mmol/L BUN (7-17) mg/dL POC Glucose (mg/dL) 150 H (75-99) mg/dL Calcium (8.4-10.2) mg/dL TIBC 179 L (228-460) ug/dL % Saturation 72.63 H (12.00-45.00) Total Bilirubin (0.2-1.3) mg/dL AST (14-36) U/L Alkaline Phosphatase (38-126) U/L Ammonia 33 H (<30) umol/L Total Protein (6.3-8.2) g/dL Albumin (3.5-5.0) g/dL Vitamin B12 1901.0 H (200.0-944.0) pg/mL 07/19/20 07/20/20 Range/Units 20:12 07:23 Potassium 2.5 L* (3.5-5.1) mmol/L Chloride 114 H (98-107) mmol/L BUN 2 L (7-17) mg/dL POC Glucose (mg/dL) 150 H (75-99) mg/dL Calcium 7.3 L (8.4-10.2) mg/dL TIBC (228-460) ug/dL % Saturation (12.00-45.00) Total Bilirubin 1.5 H (0.2-1.3) mg/dL AST 52 H (14-36) U/L Alkaline Phosphatase 131 H (38-126) U/L Ammonia (<30) umol/L Total Protein 4.5 L (6.3-8.2) g/dL Albumin 2.0 L (3.5-5.0) g/dL Vitamin B12 (200.0-944.0) pg/mL Microbiology - Last 24 Hours (Table) 07/18/20 16:47 Urine Culture - Preliminary Urine,Voided Gram Neg Bacilli
[2020-07-20 11:33] LABS: Glucose,Whole Blood 140 mg/dL (75-99)
--- NOTE | 2020-07-20 11:40 | P.GSCN ---
History of Present Illness Consult date: 07/20/20 Reason for Consult: Possible cholecystitis History of present illness: 59-year-old female comes in the hospital complaining of nausea and vomiting for 1 week. She was having some mild epigastric pain as well. Symptoms seem to have improved and mostly resolved after initiation of antiacid therapy. Patient had an ultrasound showing gallbladder sludge. HIDA scan performed showing a low ejection fraction. Denies right upper quadrant pain currently. Patient with severe peripheral vascular disease and history of underlying diabetes. Patient with significant hypokalemia currently with potassium 2.5. Patient has been seen by GI. States she had a previous EGD by them. Patient also found to have elevated liver enzymes. Ultrasound showed chronic liver disease. Hepatitis workup pending. Review of Systems The patient denies any acute changes in vision or hearing, no dysphagia or odynophagia, no chest pain or shortness of breath, no dysuria or hematuria, no headache, no runny nose, no rectal bleeding or melena, no unexplained weight loss Past Medical History Past Medical History: Diabetes Mellitus, GERD/Reflux, Hypertension, Osteoarthritis (OA), Rheumatoid Arthritis (RA), Vascular Disorder Additional Past Medical History / Comment(s): neuropathy, Vitiligo, Raynaud's, peripheral neuropathy. hx cellulitis lt lower leg, pt states hx of ulcers rt lower leg, right BKA [id number]. Wears prosthesis. Hx colon polyps. History of Any Multi-Drug Resistant Organisms: MRSA Year Discovered:: 1998 MDRO Source:: right lower leg Past Surgical History: Appendectomy, Section, Hysterectomy, Joint Replacement, Orthopedic Surgery, Tonsillectomy, Tubal Ligation Additional Past Surgical History / Comment(s): right shoulder replacement, right leg BK amputation [id number] Past Anesthesia/Blood Transfusion Reactions: No Reported Reaction Past Psychological History: Depression Additional Psychological History / Comment(s): . [place] been here [place] many years. Does not work outside of the homeUsed to work in a [employer]. Ongoing tobacco use- 1/2 ppd. No recent travel. No animal exposures Smoking Status: Current every day smoker Past Alcohol Use History: Daily Additional Past Alcohol Use History / Comment(s): started smoking at age 16 used to smoke 1 ppd now less than 1/2 ppd. states drink 1 beer a day or maybe a m ixed drink Past Drug Use History: None Reported - Past Family History Mother Family Medical History: Diabetes Mellitus, Hyperlipidemia, Hypertension Father Family Medical History: Diabetes Mellitus, Hypertension Sister(s) Family Medical History: No Reported History Son(s) Family Medical History: No Reported History Medications and Allergies Home Medications Medication Instructions Recorded Confirmed Type metHOTREXate sodium [Methotrexate] 7.5 mg PO WE 04/27/18 07/18/20 History ARIPiprazole [Abilify] 20 mg PO HS 07/09/19 07/18/20 History FLUoxetine HCL [PROzac] 20 mg PO DAILY 07/09/19 07/18/20 History Potassium Chloride ER [K-Dur 20] 20 meq PO BID 07/09/19 07/18/20 History Lacosamide [Vimpat] 50 mg PO DAILY 03/31/20 07/18/20 History Omeprazole 20 mg PO DAILY 03/31/20 07/18/20 History Ondansetron HCl [Zofran] 8 mg PO DAILY PRN 03/31/20 07/18/20 History Adalimumab [Humira Pen] 40 mg SQ Q14D 07/18/20 07/18/20 History Folic Acid 1 mg PO DAILY 07/18/20 07/18/20 History Allergies Allergy/AdvReac Type Severity Reaction Status Date / Time No Known Allergies Allergy Verified 07/18/20 20:21 Surgical - Exam Vital Signs Temp Pulse Resp BP Pulse Ox 98.2 F 105 H 18 104/66 98 07/18/20 16:11 07/18/20 16:11 07/18/20 16:11 07/18/20 16:11 07/18/20 16:11 Physical exam: General: Well-developed, well-nourished HEENT: Normocephalic, sclerae icteric Abdomen: Nontender, nondistended Extremities: Amputation noted Neuro: Alert and oriented Results - Labs 07/19/20 07:32 07/20/20 07:23 Abnormal Lab Results - Last 24 Hours (Table) 07/19/20 07/19/20 07/19/20 Range/Units 07:32 16:45 20:12 Potassium (3.5-5.1) mmol/L Chloride (98-107) mmol/L BUN (7-17) mg/dL POC Glucose (mg/dL) 150 H 150 H (75-99) mg/dL Calcium (8.4-10.2) mg/dL TIBC 179 L (228-460) ug/dL % Saturation 72.63 H (12.00-45.00) Total Bilirubin (0.2-1.3) mg/dL AST (14-36) U/L Alkaline Phosphatase (38-126) U/L Total Protein (6.3-8.2) g/dL Albumin (3.5-5.0) g/dL Vitamin B12 1901.0 H (200.0-944.0) pg/mL 07/20/20 07/20/20 Range/Units 07:23 11:31 Potassium 2.5 L* (3.5-5.1) mmol/L Chloride 114 H (98-107) mmol/L BUN 2 L (7-17) mg/dL POC Glucose (mg/dL) 140 H (75-99) mg/dL Calcium 7.3 L (8.4-10.2) mg/dL TIBC (228-460) ug/dL % Saturation (12.00-45.00) Total Bilirubin 1.5 H (0.2-1.3) mg/dL AST 52 H (14-36) U/L Alkaline Phosphatase 131 H (38-126) U/L Total Protein 4.5 L (6.3-8.2) g/dL Albumin 2.0 L (3.5-5.0) g/dL Vitamin B12 (200.0-944.0) pg/mL Microbiology - Last 24 Hours (Table) 07/18/20 16:47 Urine Culture - Preliminary Urine,Voided Gram Neg Bacilli Diabetes panel 07/19/20 07/20/20 Range/Units 07:32 07:23 Sodium 141 (137-145) mmol/L Potassium 2.5 L* (3.5-5.1) mmol/L Chloride 114 H (98-107) mmol/L Carbon Dioxide 23 (22-30) mmol/L BUN 2 L (7-17) mg/dL Creatinine 0.54 (0.52-1.04) mg/dL Glucose 90 (74-99) mg/dL Hemoglobin A1c 4.9 (4.0-6.0) % Calcium 7.3 L (8.4-10.2) mg/dL AST 52 H (14-36) U/L ALT 32 (4-34) U/L Alkaline Phosphatase 131 H (38-126) U/L Total Protein 4.5 L (6.3-8.2) g/dL Albumin 2.0 L (3.5-5.0) g/dL Calcium panel 07/20/20 Range/Units 07:23 Calcium 7.3 L (8.4-10.2) mg/dL Albumin 2.0 L (3.5-5.0) g/dL Pituitary panel 07/20/20 Range/Units 07:23 Sodium 141 (137-145) mmol/L Potassium 2.5 L* (3.5-5.1) mmol/L Chloride 114 H (98-107) mmol/L Carbon Dioxide 23 (22-30) mmol/L BUN 2 L (7-17) mg/dL Creatinine 0.54 (0.52-1.04) mg/dL Glucose 90 (74-99) mg/dL Calcium 7.3 L (8.4-10.2) mg/dL Adrenal panel 07/20/20 Range/Units 07:23 Sodium 141 (137-145) mmol/L Potassium 2.5 L* (3.5-5.1) mmol/L Chloride 114 H (98-107) mmol/L Carbon Dioxide 23 (22-30) mmol/L BUN 2 L (7-17) mg/dL Creatinine 0.54 (0.52-1.04) mg/dL Glucose 90 (74-99) mg/dL Calcium 7.3 L (8.4-10.2) mg/dL Total Bilirubin 1.5 H (0.2-1.3) mg/dL AST 52 H (14-36) U/L ALT 32 (4-34) U/L Alkaline Phosphatase 131 H (38-126) U/L Total Protein 4.5 L (6.3-8.2) g/dL Albumin 2.0 L (3.5-5.0) g/dL Assessment and Plan (1) Abdominal pain Narrative/Plan: 59-year-old female with complaints of nausea vomiting and epigastric abdominal pain. Patient better currently after initiation of antiacid therapy. Patient with underlying liver disease likely on the basis of previous alcohol abuse. Currently having workup for her liver issues by GI. We were consulted to evaluate for possible cholecystitis. Given the ultrasound showing gallbladder sludge and abnormal HIDA scan underlying cholecystitis remains a possibility. Patient relatively asymptomatic currently. We'll follow with you. Anticipate outpatient follow-up and elective cholecystectomy if symptoms persist or recur. Current Visit: No Status: Acute Code(s): R10.9 - UNSPECIFIED ABDOMINAL PAIN SNOMED Code(s): 14841184
--- NOTE | 2020-07-20 12:43 | PN ---
PROGRESS NOTE DATE OF SERVICE: 07/20/2020 INTERVAL HISTORY: Patient is a 59-year-old pleasant white female admitted to the hospital with nausea, vomiting of one week duration. She is on Protonix 40 mg daily as well as antiemetics and she is doing much better. This morning she states that she is tolerating her regular diet well. She had some nausea but no emesis. Abdominal pain has resolved. PHYSICAL EXAMINATION: Appears comfortable. No apparent distress. VITAL SIGNS: Stable. Blood pressure 106/69, pulse 83, temperature 97.9. HEENT: Examination unremarkable. Conjunctivae are pink. Sclerae anicteric. Oral cavity no lesions. NECK: No JVD or lymph node enlargement. CHEST: Clear to auscultation. HEART: Regular rate and rhythm. ABDOMEN: Soft, it was nontender, nondistended. Bowel sounds are positive. No organomegaly. EXTREMITIES: No pedal edema. SKIN: No rashes. NEUROLOGIC: Alert and oriented x3. No focal deficits. IMAGING: She had a HIDA scan yesterday that showed abnormal decreased ejection fraction of the gallbladder at 6%. No evidence of acute cholecystitis seen. LABS: From today, CBC is not available, but sodium was 141, potassium 2.5, chloride 114, CO2 23, BUN and creatinine normal. AST and ALT 52 and 32 respectively. T-bilirubin is down to 1.5 and alkaline phosphatase is 131. Hepatitis serologies for A, B and C were negative. IMPRESSION: 1. Nausea and vomiting of one week duration with some abdominal pain, resolved. 2. Elevated liver function tests, gradually improving. Ultrasound of the abdomen showed some gallbladder wall sludge, but no gallstones noted. LFTs today are improving. She had a HIDA scan done yesterday that showed decreased ejection fraction of the gallbladder but no evidence of acute cholecystitis. RECOMMENDATIONS: 1. Advance diet as tolerated. 2. Monitor LFTs closely. 3. No indication for any endoscopy intervention at the present time. 4. We will follow with you closely. Thank you for this consultation. MMODL / IJN: [id number] /
[2020-07-20 13:06] LABS: African American GFR (CKD) >90 (>60 ml/min/1.73 sqM); Anion Gap 3 mmol/L; Blood Urea Nitrogen <2 mg/dL (7-17); Calcium 7.6 mg/dL (8.4-10.2); Carbon Dioxide 22 mmol/L (22-30); Chloride 113 mmol/L (98-107); Glucose 115 mg/dL (74-99); Magnesium 1.7 mg/dL (1.6-2.3); Non-African American GFR(CKD) >90 (>60 ml/min/1.73 sqM); Potassium 3.7 mmol/L (3.5-5.1); Sodium 138 mmol/L (137-145)
[2020-07-20 16:46] LABS: Glucose,Whole Blood 115 mg/dL (75-99)
[2020-07-20 20:11] LABS: Glucose,Whole Blood 112 mg/dL (75-99)
[2020-07-21] MEDS: SODIUM CHLORIDE 0.9% 1,000 ML IV SCH ×2 (01:24→11:08)
[2020-07-21] MEDS: ERYTHROMYCIN 5 MG/GM OPHTH OINT 3.5 GM TUBE BOTH EYES SCH ×2 (05:38→11:20)
[2020-07-21 07:11] LABS: Glucose,Whole Blood 95 mg/dL (75-99)
[2020-07-21] MEDS: FLUoxetine HCL 20 MG CAP PO SCH (07:33)
[2020-07-21] MEDS: FOLIC ACID 1 MG TAB PO SCH (07:34)
[2020-07-21] MEDS: PANTOPRAZOLE 40 MG/10 ML VIAL IV SCH (07:34)
[2020-07-21] MEDS: LACOSAMIDE 50 MG TABLET PO SCH (07:34)
[2020-07-21] MEDS: POTASSIUM CHLORIDE ER 20 MEQ TAB.ER PO SCH (07:34)
[2020-07-21] MEDS: HEPARIN SODIUM,PORCINE 5,000 UNIT/ML 1 ML VIAL SQ SCH (07:34)
[2020-07-21 08:31] VITALS: BP 118/80; PULSE 87; RESP 16; TEMP 98.2
--- NOTE | 2020-07-21 09:17 | P.DS ---
Providers Date of admission: 07/18/20 20:03 Expected date of discharge: 07/21/20 Attending physician: Narciso Saab MD Consults: 07/18/20 20:03 Consult Physician Urgent Consulting Provider: Lavinia Weaver Consult Reason/Comments: nausea/vomiting, gastroparesis Do you want consulting provider notified?: Yes 07/19/20 14:45 Consult Physician Routine Consulting Provider: Jonathan Paredes Consult Reason/Comments: biliary diskinesia Do you want consulting provider notified?: Yes, Notify in am Primary care physician: [facility] Course: Patient is a 59-year-old female past medical history of diabetes mellitus, rheumatoid arthritis on Humira, and prior right BKA who presented to the hospital complaining of intractable nausea and vomiting and abdominal pain. On arrival to the ER she was tachycardic with a pulse of 105. Initial laboratory analysis showed potassium 3.2, bilirubin 3.4, AST 78, ALT 39, urinalysis had 34 white blood cells. She underwent a CT abdomen and pelvis which confirmed known old prior L1 and L4 compression fractures, fatty infiltration of the right colon which is unchanged, and nonobstructing renal calculi. She was started on IV fluids, antiemetics, and IV Protonix. She was admitted for further monitoring. She underwent a liver ultrasound which demonstrated fatty enlargement of the liver with coarse echotexture, large volume gallbladder sludge without wall thickening with small pericholecystic edema if concerns for acute cholecystitis day recommended HIDA scan, and no biliary duct dilatation. On the morning of 07/19 her bilirubin was down to 2.7, AST 56. Her potassium was low at 2.7 and magnesium 1.7. HIDA showed gallbladder EF of 6%. Surgery was consulted. Despite potassium replacement her potassium was 2.5. General surgery recommended observation and no surgical intervention as her symptoms of nausea and vomiting have improved. Her repeat potassium level was pending at the time of this note. Patient was seen and examined this morning. No acute events overnight. Patient reports no more nausea or vomiting. Able to tolerate breakfast this morning. She denies any chest pain, shortness breath or palpitations. Complains of stiffness in her hands bilaterally. General: [non toxic], [no distress], [appears at stated age] Derm: [warm], [dry], darkening of the skin around the upper chest and bilateral upper extremity Head: [atraumatic], [normocephalic], [symmetric] Eyes: [EOMI], [no lid lag], [anicteric sclera] Mouth: [no lip lesion], [mucus membranes moist] Cardiovascular: [S1S2 reg], [no murmur], [positive posterior tibial pulse bilateral], Lungs: [CTA bilateral], [no rhonchi, no rales] , [no accessory muscle use] Abdominal: [soft], [ nontender to palpation], [no guarding], [no appreciable organomegaly] Ext: [no gross muscle atrophy], [no edema], [right BKA] Neuro: [ CN II-XI grossly intact], [no focal neuro deficits] Psych: [Alert], [oriented], [appropriate affect] Intractable nausea and vomiting with gallbladder sludge - hx of gastritis on EGD - Surgery recommends conservative management - IVF fluids, PPI, antiemetics - Recent Gastric emptying study 05/2020 was normal - HIDA scan showed gallbladder EF of 6% possible chronic cholecystitis versus biliary dyskinesia - MTX level pending UTI -Urine culture shows E. coli -Complete Bactrim for another 2 days Hypokalemia - IV and oral replacement - recheck pending Transaminitis with enlarged fatty liver - follow LFTs, improving - MTX level pending - IVF - GI recs appreciated - Hepatitis panel just checked 06/24/2020 Hep A IgM negative Hep Bs Ag NR Hep Bs AB NR Hep B core NR Hep C RN RECRUITMENT Thrombocytopenia - likely reactive vs due to liver disease vs due to MTX - follow CBC - last from 06/16/20 was 101 Toxic metabolic encephalopthy - supportive care - resume home meds RA - Methotrexate due monday - hold humaria DM 2 - not on medications - slightly hypoglycemic this morning - follow BS Macrocytosis - suspect due to MTX Chronic: HTN GERD Neuropathy Raynaud's [Patient admitted for intractable nausea and vomiting. Now resolved. HIDA scan shows decreased gallbladder EF. Surgery recommended conservative management. Repeat potassium level pending this morning. Anticipate DC home today if potassium normalized. She will need adequate follow-up with PCP to review of methotrexate levels. Complete 2 more days of antibiotics for UTI. Follow-up with GI within 1 week of discharge for chronic cholecystitis versus biliary dyskinesia. Continue oral supplementation of potassium at home. Patient advised to refrain from drinking alcohol. This complex discharge took about 35 minutes to complete.] Pertinent Studies: CT abdomen and pelvis, liver ultrasound, HIDA scan Patient Condition at Discharge: Stable Plan - Discharge Summary Discharge Rx Participant: Yes New Discharge Prescriptions: New Sulfamethox-Tmp 800-160Mg [Bactrim DS 800-160 mg] 1 tab PO Q12HR #4 tab Continue metHOTREXate sodium [Methotrexate] 7.5 mg PO WE Potassium Chloride ER [K-Dur 20] 20 meq PO BID FLUoxetine HCL [PROzac] 20 mg PO DAILY ARIPiprazole [Abilify] 20 mg PO HS Lacosamide [Vimpat] 50 mg PO DAILY Omeprazole 20 mg PO DAILY Ondansetron HCl [Zofran] 8 mg PO DAILY PRN PRN Reason: Nausea Folic Acid 1 mg PO DAILY Adalimumab [Humira(Cf) Pen] 40 mg SQ Q14D Discharge Medication List metHOTREXate sodium [Methotrexate] 7.5 mg PO WE 04/27/18 [History] ARIPiprazole [Abilify] 20 mg PO HS 07/09/19 [History] FLUoxetine HCL [PROzac] 20 mg PO DAILY 07/09/19 [History] Potassium Chloride ER [K-Dur 20] 20 meq PO BID 07/09/19 [History] Lacosamide [Vimpat] 50 mg PO DAILY 03/31/20 [History] Omeprazole 20 mg PO DAILY 03/31/20 [History] Ondansetron HCl [Zofran] 8 mg PO DAILY PRN 03/31/20 [History] Adalimumab [Humira(Cf) Pen] 40 mg SQ Q14D 07/18/20 [History] Folic Acid 1 mg PO DAILY 07/18/20 [History] Sulfamethox-Tmp 800-160Mg [Bactrim DS 800-160 mg] 1 tab PO Q12HR #4 tab 07/21/20 [Rx] Follow up Appointment(s)/Referral(s): Noa Mae MD [Primary Care Provider] - 1-2 days Nhan Sue MD [STAFF PHYSICIAN] - 1 Week Alix Cool MD [STAFF PHYSICIAN] - 1 Week Activity/Diet/Wound Care/Special Instructions: Diet: Low-salt Follow-up PCP within 3 days of discharge. Follow-up with GI within 1 week of discharge. Follow-up with PCP for the results of methotrexate levels that were obtained during this admission. Take all medications as advised. Take potassium supplements 20 mEq twice a day by mouth. Refrain from drinking alcohol. Come back to ED or call 911 for worsening abdominal pain, intractable nausea and vomiting, chest pain, shortness of breath, palpitations or dizziness. Discharge Disposition: HOME SELF-CARE
[2020-07-21 09:31] LABS: African American GFR (CKD) >90 (>60 ml/min/1.73 sqM); Anion Gap 1 mmol/L; Blood Urea Nitrogen <2 mg/dL (7-17); Calcium 7.5 mg/dL (8.4-10.2); Carbon Dioxide 24 mmol/L (22-30); Chloride 113 mmol/L (98-107); Glucose 116 mg/dL (74-99); Non-African American GFR(CKD) >90 (>60 ml/min/1.73 sqM); Potassium 3.7 mmol/L (3.5-5.1); Sodium 138 mmol/L (137-145)
[2020-07-21 09:39] LABS: Anisocytosis Slight; HCT 32.3 % (34.0-46.0); HGB 9.4 gm/dL (11.4-16.0); Hypochromasia Marked; MCH 31.1 pg (25.0-35.0); MCHC 29.2 g/dL (31.0-37.0); MCV 106.4 fL (80.0-100.0); Macrocytosis Marked; Mean Platelet Volume 9.8; RBC 3.04 m/uL (3.80-5.40); RDW 16.9 % (11.5-15.5); WBC 4.5 k/uL (3.8-10.6)
[2020-07-21 09:48] LABS: Platelet Count 83 k/uL (150-450)
--- NOTE | 2020-07-24 09:44 | CDI ---
Documentation Clarification Form Date: 07/24/20 From: Raven Rodriguez Phone: If you have a question about this query, please contact April Chakraborty Apprentice Jockey at [phone] between 8am and 5pm. Admit Date: 07/18/20 Discharge Date:07/21/20 Patient Name: Keren Sommer Visit Number: [id number] ATTENTION: The Clinical Documentation Specialists (CDI) and [facility] Coding Staff appreciate your assistance in clarifying documentation. Please respond to the clarification below the line at the bottom and electronically sign. The CDI & [facility] Coding staff will review the response and follow-up if needed. Please note: Queries are made part of the Legal Health Record. If you have any questions, please contact the author of this message via ITS. Dear Dr. Van Patient has been diagnosed with a compression fracture of L1 and L$ vertebra which was documented in the ED note, discharge summary, gastroenterology consult note and medicine progress notes. History/Risk Factors: History of falls, RA, OA Clinical Indications: CT of abdomen/pelvis findings of fractures X-Ray Results: Compression fractures of L1 and L4 unchanged compared to old exam. No acute fracture. Treatment: None In your professional opinion, please specify the following: Etiology of fracture: Traumatic Pathological (specify cause): Rheumatoid arthritis Osteoarthritis Other (please specify): Unable to determine Episode of care: Initial Subsequent with delayed healing Subsequent with malunion Subsequent with nonunion Sequela Also, indicate any associated diagnosis/conditions related to the Fracture in your documentation. unable to determine she was not admitted for this problem MTDD
== END 2020-07-21 12:19 | disposition home or self-care (01) | DRG 444 ==
LOC: EC 16:09 → 4SSUR 20:03
PROVIDERS: ADMIT Internal Medicine; ATTEND Internal Medicine
DX: K81.1 Chronic cholecystitis (principal); G92 Toxic encephalopathy; N39.0 Urinary tract infection, site not specified; D69.6 Thrombocytopenia, unspecified; E11.649 Type 2 diabetes mellitus with hypoglycemia without coma; R62.7 Adult failure to thrive; K70.0 Alcoholic fatty liver; E11.43 Type 2 diabetes mellitus with diabetic autonomic (poly)neuropathy; E11.51 Type 2 diabetes mellitus with diabetic peripheral angiopathy without gangrene; K76.0 Fatty (change of) liver, not elsewhere classified; E11.42 Type 2 diabetes mellitus with diabetic polyneuropathy; K82.8 Other specified diseases of gallbladder; M06.9 Rheumatoid arthritis, unspecified; Z89.511 Acquired absence of right leg below knee; E78.5 Hyperlipidemia, unspecified; B96.20 Unspecified Escherichia coli [E. coli] as the cause of diseases classified elsewhere; T50.905A Adverse effect of unspecified drugs, medicaments and biological substances, initial encounter; D75.89 Other specified diseases of blood and blood-forming organs; E87.6 Hypokalemia; F17.210 Nicotine dependence, cigarettes, uncomplicated; F32.9 Major depressive disorder, single episode, unspecified; I10 Essential (primary) hypertension; I73.00 Raynaud's syndrome without gangrene; K13.0 Diseases of lips; K21.9 Gastro-esophageal reflux disease without esophagitis; S32.019D Unspecified fracture of first lumbar vertebra, subsequent encounter for fracture with routine healing; S32.049D Unspecified fracture of fourth lumbar vertebra, subsequent encounter for fracture with routine healing; K31.84 Gastroparesis; K59.00 Constipation, unspecified; N20.0 Calculus of kidney; L80 Vitiligo; M19.90 Unspecified osteoarthritis, unspecified site; R79.89 Other specified abnormal findings of blood chemistry; R29.6 Repeated falls; R63.4 Abnormal weight loss; Z68.23 Body mass index [BMI] 23.0-23.9, adult; T50.916A Underdosing of multiple unspecified drugs, medicaments and biological substances, initial encounter; Z91.128 Patient's intentional underdosing of medication regimen for other reason; Z66 Do not resuscitate; Z79.899 Other long term (current) drug therapy; Z86.010 Personal history of colon polyps; Z90.710 Acquired absence of both cervix and uterus; Z96.611 Presence of right artificial shoulder joint; Z90.49 Acquired absence of other specified parts of digestive tract; Z90.89 Acquired absence of other organs; Z98.51 Tubal ligation status; Z97.13 Presence of artificial right leg (complete) (partial); Z86.14 Personal history of Methicillin resistant Staphylococcus aureus infection; Z82.49 Family history of ischemic heart disease and other diseases of the circulatory system; Z83.3 Family history of diabetes mellitus; Z83.49 Family history of other endocrine, nutritional and metabolic diseases
CPT/HCPCS: 36415; 74177; 76705; 78227; 80048; 80053; 80074; 80299; 81001; 82009; 82140; 82247; 82607; 82728; 83036; 83540; 83550; 83605; 83690; 83735; 84443; 84450; 84460; 85025; 85027; 85610; 85730; 86038; 87040; 87077; 87086; 87186; 93005; 96361; 96365; 96375; 99285

== ENCOUNTER 2020-07-26 13:51 | Inpatient (IN) | payer MEDICARE, OTHER ==
[2020-07-26] MEDS ORDERED: PANTOPRAZOLE 40 MG/10 ML VIAL IVP STA (14:23)
[2020-07-26] MEDS ORDERED: ONDANSETRON 4 MG/2 ML VIAL IVP STA (14:23)
[2020-07-26] MEDS ORDERED: SODIUM CHLORIDE 0.9% 1,000 ML IV STA (14:23)
--- NOTE | 2020-07-26 14:33 | ED ---
Nausea/Vomiting/Diarrhea HPI - General Chief complaint: Nausea/Vomiting/Diarrhea Stated complaint: Vomiting Time Seen by Provider: 07/26/20 14:02 Source: patient, RN notes reviewed, old records reviewed Mode of arrival: ambulatory Limitations: no limitations - History of Present Illness Initial comments: Patient is a 59-year-old female who presents emergency department today for a chief complaint of weakness persistent nausea and vomiting unable to eat. Patient reports that she was recently admitted for gastroparesis and dehydration. Patient reports that she has not been able to tolerate drinking water without vomiting. She did try to urinate today and was very weak walking herself to the bathroom. She was brought here by her son. Patient was recently admitted and had a evaluation for possible chronic cholecystitis she denies any abdominal pain today. Patient states that she is unable to eat. Patient has not had any bowel movements in the past 2 days. - Related Data Home Medications Medication Instructions Recorded Confirmed metHOTREXate sodium [Methotrexate] 7.5 mg PO WE 04/27/18 07/18/20 ARIPiprazole [Abilify] 20 mg PO HS 07/09/19 07/18/20 FLUoxetine HCL [PROzac] 20 mg PO DAILY 07/09/19 07/18/20 Potassium Chloride ER [K-Dur 20] 20 meq PO BID 07/09/19 07/18/20 Lacosamide [Vimpat] 50 mg PO DAILY 03/31/20 07/18/20 Omeprazole 20 mg PO DAILY 03/31/20 07/18/20 Ondansetron HCl [Zofran] 8 mg PO DAILY PRN 03/31/20 07/18/20 Adalimumab [Humira(Cf) Pen] 40 mg SQ Q14D 07/18/20 07/18/20 Folic Acid 1 mg PO DAILY 07/18/20 07/18/20 Previous Rx's Medication Instructions Recorded Sulfamethox-Tmp 800-160Mg [Bactrim 1 tab PO Q12HR #4 tab 07/21/20 DS 800-160 mg] Allergies Allergy/AdvReac Type Severity Reaction Status Date / Time No Known Allergies Allergy Verified 07/18/20 20:21 Review of Systems ROS Statement: Those systems with pertinent positive or pertinent negative responses have been documented in the HPI. ROS Other: All systems not noted in ROS Statement are negative. Past Medical History Past Medical History: Diabetes Mellitus, GERD/Reflux, Hypertension, Osteoarthritis (OA), Rheumatoid Arthritis (RA), Vascular Disorder Additional Past Medical History / Comment(s): neuropathy ,Vitiligo, Raynaud's ,peripheral neuropathy. hx cellulitis lt lower leg, pt states hx of ulcers with right BKA.- wears prosthesis., Hx colon polyps., denies current diabetes and htn. History of Any Multi-Drug Resistant Organisms: MRSA Date of last positivie culture/infection: 06/11/12 MDRO Source:: lt axilla Past Surgical History: Appendectomy, Section, Joint Replacement, O rthopedic Surgery, Tonsillectomy, Tubal Ligation Additional Past Surgical History / Comment(s): right shoulder replacement, right leg BK amputation Past Anesthesia/Blood Transfusion Reactions: No Reported Reaction Past Psychological History: Depression Smoking Status: Current every day smoker Past Alcohol Use History: Daily Past Drug Use History: None Reported - Past Family History Mother Family Medical History: No Reported History, Diabetes Mellitus, Hyperlipidemia, Hypertension Father Family Medical History: Diabetes Mellitus, Hypertension Sister(s) Family Medical History: No Reported History Son(s) Family Medical History: No Reported History General Exam - General Exam Comments Initial Comments: 59 year old female, weak, appears older than stated age. Limitations: no limitations General appearance: alert, in no apparent distress Head exam: Present: atraumatic, normocephalic, normal inspection Eye exam: Present: normal appearance, PERRL, EOMI. Absent: scleral icterus, conjunctival injection, periorbital swelling ENT exam: Present: normal exam, mucous membranes moist Neck exam: Present: normal inspection. Absent: tenderness, meningismus, lymphadenopathy Respiratory exam: Present: normal lung sounds bilaterally, other ([place] has a mild cough). Absent: respiratory distress, wheezes, rales, rhonchi, stridor Cardiovascular Exam: Present: regular rate, normal rhythm, normal heart sounds. Absent: systolic murmur, diastolic murmur, rubs, gallop, clicks GI/Abdominal exam: Present: soft, normal bowel sounds. Absent: distended, tenderness, guarding, rebound, rigid Extremities exam: Present: normal inspection, full ROM, normal capillary refill. Absent: tenderness, pedal edema, joint swelling, calf tenderness Back exam: Present: normal inspection Neurological exam: Present: alert, oriented X3, CN II-XII intact Psychiatric exam: Present: normal affect, normal mood Skin exam: Present: warm, dry, intact, normal color. Absent: rash Course Vital Signs 07/26/20 07/26/20 07/26/20 13:57 15:30 16:30 Temperature 98.2 F Pulse Rate 102 H 86 86 Respiratory 18 16 18 Rate Blood Pressure 111/72 117/80 121/82 O2 Sat by Pulse 98 98 97 Oximetry Medical Decision Making - Medical Decision Making Review 9-year-old female presents to the ER today for evaluation for weakness nausea and vomiting. She reports that since her last admission on she is not able tolerate any food or liquids. Patient does have mild cough and general weakness unable to get to and from the bathroom. Patient's given IV fluids labwork obtained. Labs reviewed relatively unremarkable. Chest x-ray's of fluid with mild cough just evidence of developing infiltrate. With recent hospitalization Patient started on cefepime and azithromycin. Patient is assessed with Dr. Espana whom discussed this with - Lab Data Result diagrams: 07/26/20 14:42 07/26/20 14:42 Lab Results 07/26/20 07/26/20 07/26/20 Range/Units 14:28 14:35 14:42 WBC 6.7 (3.8-10.6) k/uL RBC 4.06 (3.80-5.40) m/uL Hgb 12.3 (11.4-16.0) gm/dL Hct 42.4 (34.0-46.0) % MCV 104.6 H (80.0-100.0) fL MCH 30.3 (25.0-35.0) pg MCHC 28.9 L (31.0-37.0) g/dL RDW 16.2 H (11.5-15.5) % Plt Count (150-450) k/uL Neutrophils % 63 % Lymphocytes % 25 % Monocytes % 7 % Eosinophils % 3 % Basophils % 1 % Neutrophils # 4.2 (1.3-7.7) k/uL Lymphocytes # 1.7 (1.0-4.8) k/uL Monocytes # 0.4 (0-1.0) k/uL Eosinophils # 0.2 (0-0.7) k/uL Basophils # 0.1 (0-0.2) k/uL Manual Slide Review Performed Hypochromasia Marked Anisocytosis Slight Macrocytosis Moderate Sodium (137-145) mmol/L Potassium (3.5-5.1) mmol/L Chloride (98-107) mmol/L Carbon Dioxide (22-30) mmol/L Anion Gap mmol/L BUN (7-17) mg/dL Creatinine (0.52-1.04) mg/dL Est GFR (CKD-EPI)AfAm (>60 ml/min/1.73 sqM) Est GFR (CKD-EPI)NonAf (>60 ml/min/1.73 sqM) Glucose (74-99) mg/dL POC Glucose (mg/dL) 98 (75-99) mg/dL POC Glu Temple Marker ID Sita King Plasma Lactic Acid Al 1.1 (0.7-2.0) mmol/L Calcium (8.4-10.2) mg/dL Magnesium (1.6-2.3) mg/dL Total Bilirubin (0.2-1.3) mg/dL AST (14-36) U/L ALT (4-34) U/L Alkaline Phosphatase (38-126) U/L Total Protein (6.3-8.2) g/dL Albumin (3.5-5.0) g/dL Amylase (30-110) U/L Lipase (23-300) U/L Urine Color Urine Appearance (Clear) Urine pH (5.0-8.0) Ur Specific Blanchard (1.001-1.035) Urine Protein (Negative) Urine Glucose (UA) (Negative) Urine Ketones (Negative) Urine Blood (Negative) Urine Nitrite (Negative) Urine Bilirubin (Negative) Urine Urobilinogen (<2.0) mg/dL Ur Leukocyte Esterase (Negative) Urine RBC (0-5) /hpf Urine WBC (0-5) /hpf Ur Squamous Epith Cells (0-4) /hpf Urine Bacteria (None) /hpf Hyaline Casts (0-2) /lpf Urine Mucus (None) /hpf 07/26/20 07/26/20 Range/Units 14:42 14:42 WBC (3.8-10.6) k/uL RBC (3.80-5.40) m/uL Hgb (11.4-16.0) gm/dL Hct (34.0-46.0) % MCV (80.0-100.0) fL MCH (25.0-35.0) pg MCHC (31.0-37.0) g/dL RDW (11.5-15.5) % Plt Count (150-450) k/uL Neutrophils % % Lymphocytes % % Monocytes % % Eosinophils % % Basophils % % Neutrophils # (1.3-7.7) k/uL Lymphocytes # (1.0-4.8) k/uL Monocytes # (0-1.0) k/uL Eosinophils # (0-0.7) k/uL Basophils # (0-0.2) k/uL Manual Slide Review Hypochromasia Anisocytosis Macrocytosis Sodium 139 (137-145) mmol/L Potassium 3.7 (3.5-5.1) mmol/L Chloride 110 H (98-107) mmol/L Carbon Dioxide 21 L (22-30) mmol/L Anion Gap 8 mmol/L BUN 7 (7-17) mg/dL Creatinine 0.71 (0.52-1.04) mg/dL Est GFR (CKD-EPI)AfAm >90 (>60 ml/min/1.73 sqM) Est GFR (CKD-EPI)NonAf >90 (>60 ml/min/1.73 sqM) Glucose 102 H (74-99) mg/dL POC Glucose (mg/dL) (75-99) mg/dL POC Glu Temple Marker ID Plasma Lactic Acid Al (0.7-2.0) mmol/L Calcium 9.6 (8.4-10.2) mg/dL Magnesium 2.0 (1.6-2.3) mg/dL Total Bilirubin 1.6 H (0.2-1.3) mg/dL AST 76 H (14-36) U/L ALT 52 H (4-34) U/L Alkaline Phosphatase 165 H (38-126) U/L Total Protein 6.8 (6.3-8.2) g/dL Albumin 3.3 L (3.5-5.0) g/dL Amylase <30 L (30-110) U/L Lipase 31 (23-300) U/L Urine Color Yellow Urine Appearance Cloudy H (Clear) Urine pH 6.5 (5.0-8.0) Ur Specific Blanchard 1.011 (1.001-1.035) Urine Protein Trace H (Negative) Urine Glucose (UA) Negative (Negative) Urine Ketones Trace H (Negative) Urine Blood Negative (Negative) Urine Nitrite Negative (Negative) Urine Bilirubin Negative (Negative) Urine Urobilinogen 4.0 (<2.0) mg/dL Ur Leukocyte Esterase Moderate H (Negative) Urine RBC <1 (0-5) /hpf Urine WBC 23 H (0-5) /hpf Ur Squamous Epith Cells 8 H (0-4) /hpf Urine Bacteria Occasional H (None) /hpf Hyaline Casts 8 H (0-2) /lpf Urine Mucus Moderate H (None) /hpf 07/26/20 14:56 EKG performed at this 1448 shows normal sinus rhythm, prolonged QT, abnormal EKG. Ventricular rate of 91 beats or hernia. Was 136 most seconds. Respirations 86 most seconds. QT QTc is 380/477 ms. - Radiology Data Radiology results: report reviewed There is lower lobe pulmonary infiltrates probably on the left paraspinal region increased compared old exam. Normal heart. No heart failure. KUB shows nonacute abdomen. Possible left lower lobe pneumonia is new compared old exam. Disposition Clinical Impression: Pneumonia, Nausea & vomiting, Intractable vomiting Disposition: ADMITTED IP TO THIS HOSP Condition: Good Is patient prescribed a controlled substance at d/c from ED?: No Time of Disposition: 16:45
[2020-07-26 14:37] LABS: Glucose,Whole Blood 98 mg/dL (75-99)
[2020-07-26] MEDS: SODIUM CHLORIDE 0.9% 1,000 ML IV STA ×2 (14:53→14:54)
[2020-07-26 15:05] LABS: ALT 52 U/L (4-34); AST 76 U/L (14-36); African American GFR (CKD) >90 (>60 ml/min/1.73 sqM); Albumin 3.3 g/dL (3.5-5.0); Alkaline Phosphatase 165 U/L (38-126); Anion Gap 8 mmol/L; Blood Urea Nitrogen 7 mg/dL (7-17); Calcium 9.6 mg/dL (8.4-10.2); Carbon Dioxide 21 mmol/L (22-30); Chloride 110 mmol/L (98-107); Glucose 102 mg/dL (74-99); Non-African American GFR(CKD) >90 (>60 ml/min/1.73 sqM); Potassium 3.7 mmol/L (3.5-5.1); Sodium 139 mmol/L (137-145); Total Bilirubin 1.6 mg/dL (0.2-1.3); Total Protein 6.8 g/dL (6.3-8.2)
[2020-07-26 15:09] LABS: Amylase <30 U/L (30-110)
[2020-07-26 15:13] LABS: Anisocytosis Slight; Basophils # (A) 0.1 k/uL (0-0.2); Basophils % (A) 1 %; Eosinophils # (A) 0.2 k/uL (0-0.7); Eosinophils % (A) 3 %; HCT 42.4 % (34.0-46.0); HGB 12.3 gm/dL (11.4-16.0); Hypochromasia Marked; Lymphocytes # (A) 1.7 k/uL (1.0-4.8); Lymphocytes % (A) 25 %; MCH 30.3 pg (25.0-35.0); MCHC 28.9 g/dL (31.0-37.0); MCV 104.6 fL (80.0-100.0); Macrocytosis Moderate; Monocytes # (A) 0.4 k/uL (0-1.0); Monocytes % (A) 7 %; Neutrophils # (A) 4.2 k/uL (1.3-7.7); Neutrophils % (A) 63 %; RBC 4.06 m/uL (3.80-5.40); RDW 16.2 % (11.5-15.5); WBC 6.7 k/uL (3.8-10.6)
--- NOTE | 2020-07-26 15:56 | XR ---
EXAMINATION TYPE: XR KUB DATE OF EXAM: 07/26/2020 COMPARISON: 12/11/2018 HISTORY: Vomiting TECHNIQUE: Single view supine FINDINGS: There is no sign of intestinal obstruction or pneumoperitoneum. Fecal pattern is normal. Th ere is mild lumbar dextroscoliosis. There is probably some infiltrate left lower lobe. There are no d efinite calcifications over the kidneys. IMPRESSION: Nonacute abdomen. Possible left lower lobe pneumonia is new compared to old abdomen x-ray .
--- NOTE | 2020-07-26 16:01 | XR ---
EXAMINATION TYPE: XR chest 2V DATE OF EXAM: 07/26/2020 COMPARISON: 04/23/2020 HISTORY: Weakness TECHNIQUE: 2 views FINDINGS: Heart is normal. There is no heart failure. There is some infiltrate over the lower thoraci c spine on the lateral view that is probably in the left lower lobe. There are multiple bilateral efrain arent old rib fractures. There is right shoulder prosthesis. There is no pleural effusion. IMPRESSION: There is lower lobe pulmonary infiltrates probably in the left paraspinal region increase d compared to old exam. Normal heart. No heart failure.
[2020-07-26] MEDS ORDERED: AZITHROMYCIN 500 MG in SODIUM CHLORIDE 0.9% 250 ML IVPB STA (16:40)
[2020-07-26] MEDS ORDERED: CEFEPIME 2 GM in SODIUM CHLORIDE 0.9% 100 ML IVPB STA (16:40)
[2020-07-26] MEDS ORDERED: ACETAMINOPHEN TAB 325 MG TAB PO PRN (16:45)
[2020-07-26] MEDS ORDERED: IBUPROFEN 400 MG TAB PO PRN (16:45)
[2020-07-26] MEDS ORDERED: NALOXONE 0.4 MG/ML 1 ML VIAL IV PRN (16:45)
[2020-07-26] MEDS ORDERED: KETOROLAC 15 MG/ML 1 ML VIAL IVP PRN (16:45)
[2020-07-26] MEDS ORDERED: MORPHINE SULFATE 4 MG/ML SYRINGE IV PRN (16:45)
[2020-07-26] MEDS ORDERED: SODIUM CHLORIDE 0.9% 1,000 ML IV SCH (16:45)
[2020-07-26 16:58] LABS: Appearance,Urine Cloudy (Clear); Bacteria,Urine Occasional /hpf; Bilirubin,Urine Negative (Negative); Blood,Urine Negative (Negative); Color,Urine Yellow; Glucose,Urine (UA) Negative (Negative); Hyaline Casts,Urine 8 /lpf (0-2); Ketones,Urine Trace (Negative); Leukocyte Esterase,Urine Moderate (Negative); Mucus,Urine Moderate /hpf; Nitrite,Urine Negative (Negative); PH, Urine 6.5 (5.0-8.0); Protein,Urine Trace (Negative); RBC,Urine <1 /hpf (0-5); Specific Gravity,Urine 1.011 (1.001-1.035); Squamous Epithelial Cell,Urine 8 /hpf (0-4); WBC,Urine 23 /hpf (0-5)
--- NOTE | 2020-07-26 17:32 | P.HPIM ---
History of Present Illness H&P Date: 07/26/20 Patient is a 59-year-old female past medical history of diabetes mellitus, rheumatoid arthritis on Humira, and prior right BKA who presented to the hospital complaining of intractable nausea and vomiting. She was recently admitted on July 18 and discharged on July 21 for the same problem. At that time, she underwent a CT abdomen and pelvis which confirmed known old prior L1 and L4 compression fractures, fatty infiltration of the right colon which is unchanged, and nonobstructing renal calculi. She underwent a liver ultrasound which demonstrated fatty enlargement of the liver with coarse echotexture, large volume gallbladder sludge without wall thickening with small pericholecystic edema if concerns for acute cholecystitis day recommended HIDA scan, and no biliary duct dilatation. HIDA showed gallbladder EF of 6%. Surgery was consulted and recommended conservative management. She was also hypokalemic and her potassium was replaced. Her nausea and vomiting progressively improved and she was discharged to follow-up with GI in the outpatient setting. Patient states that she went home and continued to experience nausea and vomiting. She denied any abdominal pain. Her symptoms prompted her to come to the ED this time. She denies any headache, lower extremity edema, fever or chills, chest pain, shortness of breath, changes in urination or bowel habits. She does report that she has not been able to eat much and hold down much food. She does report a cough productive of green sputum. In the ED, her vital signs are stable. CBC showed MCV of 104.6. CMP showed chloride of 110, bicarbonate of 21, glucose 102, total bilirubin 1.6, AST 76, ALT 52, alkaline phosphatase 165. Lipase is negative. Urinalysis showed trace ketones and moderate leukocyte esterase. Patient is admitted for intractable nausea and vomiting. Review of Systems Pertinent positives and negatives as discussed in HPI, a complete review of systems was performed and all other systems are negative. Past Medical History Past Medical History: Diabetes Mellitus, GERD/Reflux, Hypertension, Osteoarth ritis (OA), Rheumatoid Arthritis (RA), Vascular Disorder Additional Past Medical History / Comment(s): neuropathy ,Vitiligo, Raynaud's ,peripheral neuropathy. hx cellulitis lt lower leg, pt states hx of ulcers with right BKA.- wears prosthesis., Hx colon polyps., denies current diabetes and htn. History of Any Multi-Drug Resistant Organisms: MRSA Date of last positivie culture/infection: 06/11/12 MDRO Source:: lt axilla Past Surgical History: Appendectomy, Section, Joint Replacement, Orthopedic Surgery, Tonsillectomy, Tubal Ligation Additional Past Surgical History / Comment(s): right shoulder replacement, right leg BK amputation Past Anesthesia/Blood Transfusion Reactions: No Reported Reaction Past Psychological History: Depression Smoking Status: Current every day smoker Past Alcohol Use History: Daily Past Drug Use History: None Reported - Past Family History Mother Family Medical History: No Reported History, Diabetes Mellitus, Hyperlipidemia, Hypertension Father Family Medical History: Diabetes Mellitus, Hypertension Sister(s) Family Medical History: No Reported History Son(s) Family Medical History: No Reported History Medications and Allergies Home Medications Medication Instructions Recorded Confirmed Type metHOTREXate sodium [Methotrexate] 7.5 mg PO WE 04/27/18 07/26/20 History ARIPiprazole [Abilify] 20 mg PO HS 07/09/19 07/26/20 History FLUoxetine HCL [PROzac] 20 mg PO DAILY 07/09/19 07/26/20 History Potassium Chloride ER [K-Dur 20] 20 meq PO BID 07/09/19 07/26/20 History Lacosamide [Vimpat] 50 mg PO DAILY 03/31/20 07/26/20 History Omeprazole 20 mg PO DAILY 03/31/20 07/26/20 History Ondansetron HCl [Zofran] 8 mg PO DAILY PRN 03/31/20 07/26/20 History Adalimumab [Humira(Cf) Pen] 40 mg SQ Q14D 07/18/20 07/26/20 History Folic Acid 1 mg PO DAILY 07/18/20 07/26/20 History Allergies Allergy/AdvReac Type Severity Reaction Status Date / Time No Known Allergies Allergy Verified 07/26/20 17:02 Physical Exam Vitals: Vital Signs Temp Pulse Resp BP Pulse Ox 07/26/20 16:30 86 18 121/82 97 07/26/20 15:30 86 16 117/80 98 07/26/20 13:57 98.2 F 102 H 18 111/72 98 Intake and Output 07/26/20 07/26/20 07/26/20 06:59 14:59 22:59 Other: Weight 56.699 kg General: [non toxic], [no distress], [appears at stated age] Derm: [warm], [dry], darkening of the skin around the upper chest and bilateral upper extremity Head: [atraumatic], [normocephalic], [symmetric] Eyes: [EOMI], [no lid lag], [anicteric sclera] Mouth: [no lip lesion], [mucus membranes moist] Cardiovascular: [S1S2 reg], [no murmur], [positive posterior tibial pulse bilateral], Lungs: [CTA bilateral], [no rhonchi, no rales] , [no accessory muscle use] Abdominal: [soft], [ nontender to palpation], [no guarding], [no appreciable organomegaly] Ext: [no gross muscle atrophy], [no edema], [right BKA] Neuro: [ CN II-XI grossly intact], [no focal neuro deficits] Psych: [Alert], [oriented], [appropriate affect] Results CBC & Chem 7: 07/26/20 14:42 07/26/20 14:42 Labs: Abnormal Lab Results - Last 24 Hours (Table) 07/26/20 07/26/20 07/26/20 Range/Units 14:42 14:42 14:42 MCV 104.6 H (80.0-100.0) fL MCHC 28.9 L (31.0-37.0) g/dL RDW 16.2 H (11.5-15.5) % Chloride 110 H (98-107) mmol/L Carbon Dioxide 21 L (22-30) mmol/L Glucose 102 H (74-99) mg/dL Total Bilirubin 1.6 H (0.2-1.3) mg/dL AST 76 H (14-36) U/L ALT 52 H (4-34) U/L Alkaline Phosphatase 165 H (38-126) U/L Albumin 3.3 L (3.5-5.0) g/dL Amylase <30 L (30-110) U/L Urine Appearance Cloudy H (Clear) Urine Protein Trace H (Negative) Urine Ketones Trace H (Negative) Ur Leukocyte Esterase Moderate H (Negative) Urine WBC 23 H (0-5) /hpf Ur Squamous Epith Cells 8 H (0-4) /hpf Urine Bacteria Occasional H (None) /hpf Hyaline Casts 8 H (0-2) /lpf Urine Mucus Moderate H (None) /hpf Assessment and Plan Assessment: Intractable nausea and vomiting with gallbladder sludge - hx of gastritis on EGD - Amylase lipase negative - IVF fluids, PPI, antiemetics - Recent Gastric emptying study 05/2020 was normal - HIDA scan showed gallbladder EF of 6% possible chronic cholecystitis versus biliary dyskinesia - Follow surgery consultation Pneumonia seen on chest x-ray -Patient reports cough productive of green sputum since her discharge -Started on cefepime and azithromycin in the ED -Continue Levaquin by mouth for a total of 7 days UTI -Urine culture during previous admission shows E. coli -Continue Levaquin as above Transaminitis with enlarged fatty liver - follow LFTs, improving - IVF - Follow surgery consultation - Hepatitis panel negative during previous admission RA - Methotrexate due monday - hold humaria DM 2 - not on medications - slightly hypoglycemic this morning - follow BS Macrocytosis - suspect due to MTX Chronic: HTN GERD Neuropathy Raynaud's [Patient readmitted for intractable nausea and vomiting. Found to have pneumonia on chest x-ray. On IV antibiotics. Surgery consulted for possible chronic cholecystitis. She is pending clinical improvement. Likely DC in 1-2 days.]
[2020-07-26] MEDS: ONDANSETRON 4 MG/2 ML VIAL IVP PRN (21:01)
[2020-07-27] MEDS: ONDANSETRON 4 MG/2 ML VIAL IVP PRN (05:24)
[2020-07-27 06:56] LABS: Glucose,Whole Blood 77 mg/dL (75-99)
[2020-07-27] MEDS: PANTOPRAZOLE 40 MG/10 ML VIAL IV SCH (08:25)
[2020-07-27] MEDS: FLUoxetine HCL 20 MG CAP PO SCH (08:25)
[2020-07-27] MEDS: LACOSAMIDE 50 MG TABLET PO SCH (08:25)
[2020-07-27 11:18] LABS: Glucose,Whole Blood 100 mg/dL (75-99)
[2020-07-27 11:31] LABS: Basophils % (A) 1 %; Eosinophils # (A) 0.1 k/uL (0-0.7); Eosinophils % (A) 3 %; HCT 32.7 % (34.0-46.0); Hypochromasia Marked; Lymphocytes # (A) 0.7 k/uL (1.0-4.8); Lymphocytes % (A) 14 %; MCH 30.4 pg (25.0-35.0); MCHC 28.2 g/dL (31.0-37.0); MCV 107.7 fL (80.0-100.0); Macrocytosis Marked; Mean Platelet Volume 9.5; Monocytes # (A) 0.3 k/uL (0-1.0); Monocytes % (A) 6 %; Neutrophils % (A) 75 %; RBC 3.04 m/uL (3.80-5.40); WBC 5.3 k/uL (3.8-10.6)
[2020-07-27 11:40] LABS: ALT 37 U/L (4-34); AST 59 U/L (14-36); African American GFR (CKD) >90 (>60 ml/min/1.73 sqM); Albumin 2.1 g/dL (3.5-5.0); Alkaline Phosphatase 107 U/L (38-126); Anion Gap 3 mmol/L; Blood Urea Nitrogen 6 mg/dL (7-17); Calcium 8.1 mg/dL (8.4-10.2); Carbon Dioxide 20 mmol/L (22-30); Chloride 115 mmol/L (98-107); Glucose 96 mg/dL (74-99); Non-African American GFR(CKD) >90 (>60 ml/min/1.73 sqM); Potassium 3.1 mmol/L (3.5-5.1); Sodium 138 mmol/L (137-145); Total Bilirubin 1.1 mg/dL (0.2-1.3); Total Protein 4.7 g/dL (6.3-8.2)
[2020-07-27 11:43] LABS: HGB 9.2 gm/dL (11.4-16.0)
[2020-07-27] MEDS: LEVOFLOXACIN 750MG-D5W PMX 750 MG in DEXTROSE/WATER 1 150ML.BAG IVPB SCH (11:52)
[2020-07-27 12:11] LABS: Platelet Count 105 k/uL (150-450); Poikilocytosis (M) Present
[2020-07-27] MEDS ORDERED: POTASSIUM CHLORIDE ER 20 MEQ TAB.ER PO STA (13:59)
--- NOTE | 2020-07-27 14:00 | P.GSCN ---
History of Present Illness Consult date: 07/27/20 History of present illness: CHIEF COMPLAINT: Nausea vomiting with abdominal pain HISTORY OF PRESENT ILLNESS: This is a 59-year-old female with a known history of diabetes, rheumatoid arthritis on Humira and previous history of alcohol abuse. She presented to the hospital with intractable nausea and vomiting. Also complaining of abdominal discomfort after eating. She had recently been admitted to the hospital on July 18 with similar symptoms. At that time she had a liver ultrasound which had showed large volume gallbladder sludge. HIDA scan no acute cholecystitis. Abnormally decreased gallbladder ejection fraction of 6%. Findings may represent chronic cholecystitis or biliary dyskinesia. Her symptoms improved and she was discharged home. However, her symptoms have reoccurred. Liver enzymes are elevated. She reports a decrease in appetite. She denies any fever, chills, sweats. PAST MEDICAL HISTORY: See list. PAST SURGICAL HISTORY: See list. MEDICATIONS: See list. ALLERGIES: See list. SOCIAL HISTORY: No illicit drug use. REVIEW OF SYSTEMS: CONSTITUTIONAL: Denies fever or chills. HEENT: Denies blurred vision, vision changes, or eye pain. Denies hemoptysis CARDIOVASCULAR: Denies chest pain or pressure. RESPIRATORY: No shortness of breath. GASTROINTESTINAL: See HPI for pertinent findings HEMATOLOGIC: Denies bleeding disorders. GENITOURINARY: Denies any blood in urine or increased urinary frequency. SKIN: Denies pruitis. Denies rash. PHYSICAL EXAM: VITAL SIGNS: Reviewed GENERAL: Well-developed in no acute distress. HEENT: No sclera icterus. Extraocular movements grossly intact. Moist buccal mucosa. Head is atraumatic, normocephalic. No nasal drainage. ABDOMEN: Soft. Nontender nondistended NEUROLOGIC: Alert and oriented. Cranial nerves II through XII grossly intact. LABORATORY DATA: WBC 5.3 hemoglobin 9.2 platelets 105 potassium 301 total bili 1.1 AST 59 ALT 37 lipase 31 IMAGING: KUB x-ray radiology reports nonacute abdomen. Possible left lower lobe pneumonia. ASSESSMENT: 1. Acute on chronic cholecystitis 2. Hypokalemia PLAN: -Plan for laparoscopic cholecystectomy on 07/29/2020 -Continue clear liquid diet for now and make patient nothing by mouth after midnight on Monday -Replace potassium and recheck lites in a.m. Thank you for this consultation Physician Audio Visual Design Engineer note has been reviewed by physician. Signing provider agrees with the documented findings, assessment, and plan of care. Past Medical History Past Medical History: Diabetes Mellitus, GERD/Reflux, Hypertension, Osteoarthritis (OA), Rheumatoid Arthritis (RA), Vascular Disorder Additional Past Medical History / Comment(s): neuropathy ,Vitiligo, Raynaud's ,peripheral neuropathy. hx cellulitis lt lower leg, pt states hx of ulcers with right BKA.- wears prosthesis., Hx colon polyps., denies current diabetes and htn. History of Any Multi-Drug Resistant Organisms: MRSA Year Discovered:: 06/11/12 MDRO Source:: lt axilla Past Surgical History: Appendectomy, Section, Joint Replacement, Orthopedic Surgery, Tonsillectomy, Tubal Ligation Additional Past Surgical History / Comment(s): right shoulder replacement, right leg BK amputation Past Anesthesia/Blood Transfusion Reactions: No Reported Reaction Past Psychological History: Depression Smoking Status: Current every day smoker Past Alcohol Use History: Daily Past Drug Use History: None Reported - Past Family History Mother Family Medical History: No Reported History, Diabetes Mellitus, Hyperlipidemia, Hypertension Father Family Medical History: Diabetes Mellitus, Hypertension Sister(s) Family Medical History: No Reported History Son(s) Family Medical History: No Reported History Medications and Allergies Home Medications Medication Instructions Recorded Confirmed Type metHOTREXate sodium [Methotrexate] 7.5 mg PO WE 04/27/18 07/26/20 History ARIPiprazole [Abilify] 20 mg PO HS 07/09/19 07/26/20 History FLUoxetine HCL [PROzac] 20 mg PO DAILY 07/09/19 07/26/20 History Potassium Chloride ER [K-Dur 20] 20 meq PO BID 07/09/19 07/26/20 History Lacosamide [Vimpat] 50 mg PO DAILY 03/31/20 07/26/20 History Omeprazole 20 mg PO DAILY 03/31/20 07/26/20 History Ondansetron HCl [Zofran] 8 mg PO DAILY PRN 03/31/20 07/26/20 History Adalimumab [Humira(Cf) Pen] 40 mg SQ Q14D 07/18/20 07/26/20 History Folic Acid 1 mg PO DAILY 07/18/20 07/26/20 History Allergies Allergy/AdvReac Type Severity Reaction Status Date / Time No Known Allergies Allergy Verified 07/26/20 17:02 Surgical - Exam Vital Signs Temp Pulse Resp BP Pulse Ox 98.2 F 102 H 18 111/72 98 07/26/20 13:57 07/26/20 13:57 07/26/20 13:57 07/26/20 13:57 07/26/20 13:57 Results - Labs 07/27/20 11:05 07/27/20 11:05 Abnormal Lab Results - Last 24 Hours (Table) 07/26/20 07/26/20 07/26/20 Range/Units 14:42 14:42 14:42 RBC (3.80-5.40) m/uL Hgb (11.4-16.0) gm/dL Hct (34.0-46.0) % MCV 104.6 H (80.0-100.0) fL MCHC 28.9 L (31.0-37.0) g/dL RDW 16.2 H (11.5-15.5) % Plt Count (150-450) k/uL Lymphocytes # (1.0-4.8) k/uL Macrocytosis Potassium (3.5-5.1) mmol/L Chloride 110 H (98-107) mmol/L Carbon Dioxide 21 L (22-30) mmol/L BUN (7-17) mg/dL Glucose 102 H (74-99) mg/dL POC Glucose (mg/dL) (75-99) mg/dL Calcium (8.4-10.2) mg/dL Total Bilirubin 1.6 H (0.2-1.3) mg/dL AST 76 H (14-36) U/L ALT 52 H (4-34) U/L Alkaline Phosphatase 165 H (38-126) U/L Total Protein (6.3-8.2) g/dL Albumin 3.3 L (3.5-5.0) g/dL Amylase <30 L (30-110) U/L Urine Appearance Cloudy H (Clear) Urine Protein Trace H (Negative) Urine Ketones Trace H (Negative) Ur Leukocyte Esterase Moderate H (Negative) Urine WBC 23 H (0-5) /hpf Ur Squamous Epith Cells 8 H (0-4) /hpf Urine Bacteria Occasional H (None) /hpf Hyaline Casts 8 H (0-2) /lpf Urine Mucus Moderate H (None) /hpf 07/27/20 07/27/20 07/27/20 Range/Units 11:05 11:05 11:17 RBC 3.04 L (3.80-5.40) m/uL Hgb 9.2 L D (11.4-16.0) gm/dL Hct 32.7 L (34.0-46.0) % MCV 107.7 H (80.0-100.0) fL MCHC 28.2 L (31.0-37.0) g/dL RDW 16.0 H (11.5-15.5) % Plt Count 105 L (150-450) k/uL Lymphocytes # 0.7 L (1.0-4.8) k/uL Macrocytosis Marked A Potassium 3.1 L (3.5-5.1) mmol/L Chloride 115 H (98-107) mmol/L Carbon Dioxide 20 L (22-30) mmol/L BUN 6 L (7-17) mg/dL Glucose (74-99) mg/dL POC Glucose (mg/dL) 100 H (75-99) mg/dL Calcium 8.1 L (8.4-10.2) mg/dL Total Bilirubin (0.2-1.3) mg/dL AST 59 H (14-36) U/L ALT 37 H (4-34) U/L Alkaline Phosphatase (38-126) U/L Total Protein 4.7 L (6.3-8.2) g/dL Albumin 2.1 L (3.5-5.0) g/dL Amylase (30-110) U/L Urine Appearance (Clear) Urine Protein (Negative) Urine Ketones (Negative) Ur Leukocyte Esterase (Negative) Urine WBC (0-5) /hpf Ur Squamous Epith Cells (0-4) /hpf Urine Bacteria (None) /hpf Hyaline Casts (0-2) /lpf Urine Mucus (None) /hpf Microbiology - Last 24 Hours (Table) 07/26/20 14:42 Urine Culture - Preliminary Urine,Voided Diabetes panel 07/26/20 07/27/20 Range/Units 14:42 11:05 Sodium 139 138 (137-145) mmol/L Potassium 3.7 3.1 L (3.5-5.1) mmol/L Chloride 110 H 115 H (98-107) mmol/L Carbon Dioxide 21 L 20 L (22-30) mmol/L BUN 7 6 L (7-17) mg/dL Creatinine 0.71 0.70 (0.52-1.04) mg/dL Glucose 102 H 96 (74-99) mg/dL Calcium 9.6 8.1 L (8.4-10.2) mg/dL AST 76 H 59 H (14-36) U/L ALT 52 H 37 H (4-34) U/L Alkaline Phosphatase 165 H 107 (38-126) U/L Total Protein 6.8 4.7 L (6.3-8.2) g/dL Albumin 3.3 L 2.1 L (3.5-5.0) g/dL Calcium panel 07/26/20 07/27/20 Range/Units 14:42 11:05 Calcium 9.6 8.1 L (8.4-10.2) mg/dL Albumin 3.3 L 2.1 L (3.5-5.0) g/dL Pituitary panel 07/26/20 07/27/20 Range/Units 14:42 11:05 Sodium 139 138 (137-145) mmol/L Potassium 3.7 3.1 L (3.5-5.1) mmol/L Chloride 110 H 115 H (98-107) mmol/L Carbon Dioxide 21 L 20 L (22-30) mmol/L BUN 7 6 L (7-17) mg/dL Creatinine 0.71 0.70 (0.52-1.04) mg/dL Glucose 102 H 96 (74-99) mg/dL Calcium 9.6 8.1 L (8.4-10.2) mg/dL Adrenal panel 07/26/20 07/27/20 Range/Units 14:42 11:05 Sodium 139 138 (137-145) mmol/L Potassium 3.7 3.1 L (3.5-5.1) mmol/L Chloride 110 H 115 H (98-107) mmol/L Carbon Dioxide 21 L 20 L (22-30) mmol/L BUN 7 6 L (7-17) mg/dL Creatinine 0.71 0.70 (0.52-1.04) mg/dL Glucose 102 H 96 (74-99) mg/dL Calcium 9.6 8.1 L (8.4-10.2) mg/dL Total Bilirubin 1.6 H 1.1 (0.2-1.3) mg/dL AST 76 H 59 H (14-36) U/L ALT 52 H 37 H (4-34) U/L Alkaline Phosphatase 165 H 107 (38-126) U/L Total Protein 6.8 4.7 L (6.3-8.2) g/dL Albumin 3.3 L 2.1 L (3.5-5.0) g/dL
[2020-07-27] MEDS: HYDROcodone/APAP 5-325MG 1 EACH TAB PO PRN ×2 (15:34→21:19)
[2020-07-27] MEDS: SODIUM CHLORIDE 0.9% 1,000 ML IV SCH (15:35)
--- NOTE | 2020-07-27 16:26 | P.PN ---
Subjective Progress Note Date: 07/27/20 Patient was seen and examined. No acute events overnight. Patient edition report nausea and intermittent vomiting. She denies any chest pain, shortness breath or palpitations. No fever or chills. Objective - Vital Signs Vital signs: Vital Signs Temp 98.4 F 07/27/20 15:00 Pulse 92 07/27/20 15:00 Resp 16 07/27/20 15:00 BP 86/56 07/27/20 15:00 Pulse Ox 91 L 07/27/20 15:00 Intake & Output 07/26/20 07/27/20 07/27/20 18:59 06:59 18:59 Weight 56.699 kg Other: Voiding Method Bedpan Bedpan # Voids 2 1 - Exam General: [non toxic], [no distress], [appears at stated age] Derm: [warm], [dry], darkening of the skin around the upper chest and bilateral upper extremity Head: [atraumatic], [normocephalic], [symmetric] Eyes: [EOMI], [no lid lag], [anicteric sclera] Mouth: [no lip lesion], [mucus membranes moist] Cardiovascular: [S1S2 reg], [no murmur], [positive posterior tibial pulse bilateral], Lungs: [CTA bilateral], [no rhonchi, no rales] , [no accessory muscle use] Abdominal: [soft], [ nontender to palpation], [no guarding], [no appreciable organomegaly] Ext: [no gross muscle atrophy], [no edema], [right BKA] Neuro: [ CN II-XI grossly intact], [no focal neuro deficits] Psych: [Alert], [oriented], [appropriate affect] - Labs CBC & Chem 7: 07/27/20 11:05 07/27/20 11:05 Labs: Abnormal Lab Results - Last 24 Hours (Table) 07/26/20 07/27/20 07/27/20 Range/Units 14:42 11:05 11:05 RBC 3.04 L (3.80-5.40) m/uL Hgb 9.2 L D (11.4-16.0) gm/dL Hct 32.7 L (34.0-46.0) % MCV 107.7 H (80.0-100.0) fL MCHC 28.2 L (31.0-37.0) g/dL RDW 16.0 H (11.5-15.5) % Plt Count 105 L (150-450) k/uL Lymphocytes # 0.7 L (1.0-4.8) k/uL Macrocytosis Marked A Potassium 3.1 L (3.5-5.1) mmol/L Chloride 115 H (98-107) mmol/L Carbon Dioxide 20 L (22-30) mmol/L BUN 6 L (7-17) mg/dL POC Glucose (mg/dL) (75-99) mg/dL Calcium 8.1 L (8.4-10.2) mg/dL AST 59 H (14-36) U/L ALT 37 H (4-34) U/L Total Protein 4.7 L (6.3-8.2) g/dL Albumin 2.1 L (3.5-5.0) g/dL Urine Appearance Cloudy H (Clear) Urine Protein Trace H (Negative) Urine Ketones Trace H (Negative) Ur Leukocyte Esterase Moderate H (Negative) Urine WBC 23 H (0-5) /hpf Ur Squamous Epith Cells 8 H (0-4) /hpf Urine Bacteria Occasional H (None) /hpf Hyaline Casts 8 H (0-2) /lpf Urine Mucus Moderate H (None) /hpf 07/27/20 Range/Units 11:17 RBC (3.80-5.40) m/uL Hgb (11.4-16.0) gm/dL Hct (34.0-46.0) % MCV (80.0-100.0) fL MCHC (31.0-37.0) g/dL RDW (11.5-15.5) % Plt Count (150-450) k/uL Lymphocytes # (1.0-4.8) k/uL Macrocytosis Potassium (3.5-5.1) mmol/L Chloride (98-107) mmol/L Carbon Dioxide (22-30) mmol/L BUN (7-17) mg/dL POC Glucose (mg/dL) 100 H (75-99) mg/dL Calcium (8.4-10.2) mg/dL AST (14-36) U/L ALT (4-34) U/L Total Protein (6.3-8.2) g/dL Albumin (3.5-5.0) g/dL Urine Appearance (Clear) Urine Protein (Negative) Urine Ketones (Negative) Ur Leukocyte Esterase (Negative) Urine WBC (0-5) /hpf Ur Squamous Epith Cells (0-4) /hpf Urine Bacteria (None) /hpf Hyaline Casts (0-2) /lpf Urine Mucus (None) /hpf Microbiology - Last 24 Hours (Table) 07/26/20 14:42 Urine Culture - Preliminary Urine,Voided Assessment and Plan Assessment: Intractable nausea and vomiting with gallbladder sludge likely related to acute on chronic cholecystitis - hx of gastritis on EGD - Amylase lipase negative - IVF fluids, PPI, antiemetics - Recent Gastric emptying study 05/2020 was normal - HIDA scan showed gallbladder EF of 6% possible chronic cholecystitis versus biliary dyskinesia - Follow surgery consultation -Plans for laparoscopic cholecystectomy on Monday -Continue Levaquin Pneumonia seen on chest x-ray -Patient reports cough productive of green sputum since her discharge -Started on cefepime and azithromycin in the ED -Follow sputum and blood culture -Continue Levaquin UTI -Urine culture during previous admission shows E. coli -Follow urine culture -Continue Levaquin as above Transaminitis with enlarged fatty liver - follow LFTs, improving - IVF - Hepatitis panel negative during previous admission RA - Methotrexate due monday - hold humaria DM 2 - not on medications - follow BS Macrocytosis - suspect due to MTX Chronic: HTN GERD Neuropathy Raynaud's [Patient readmitted for intractable nausea and vomiting. Found to have pneumonia on chest x-ray. On IV antibiotics. Surgery consulted for chronic cholecystitis, plans for laparoscopic cholecystectomy on Monday. She is pending clinical improvement. Likely DC in 3-4 days.]
[2020-07-27 17:12] LABS: Glucose,Whole Blood 80 mg/dL (75-99)
[2020-07-27 21:30] LABS: Glucose,Whole Blood 84 mg/dL (75-99)
[2020-07-28 05:56] LABS: HCT 33.5 % (34.0-46.0); HGB 9.5 gm/dL (11.4-16.0); Hypochromasia Marked; MCH 30.3 pg (25.0-35.0); MCHC 28.3 g/dL (31.0-37.0); MCV 107.1 fL (80.0-100.0); Macrocytosis Marked; Mean Platelet Volume 8.7; Platelet Count 132 k/uL (150-450); RBC 3.13 m/uL (3.80-5.40); RDW 15.5 % (11.5-15.5)
[2020-07-28] MEDS: SODIUM CHLORIDE 0.9% 1,000 ML IV SCH ×2 (06:13→16:32)
[2020-07-28 06:19] LABS: Eosinophils # (M) 0.32 k/uL (0-0.7); Lymphocytes # (M) 0.92 k/uL (1.0-4.8); Monocytes # (M) 0.24 k/uL (0-1.0); Neutrophils # (M) 2.52 k/uL (1.3-7.7); Neutrophils % (M) 63 %; Nucleated Red Blood Cells 0 /100 WBC (0-0); Total Cells Counted 100
[2020-07-28 07:04] LABS: Glucose,Whole Blood 106 mg/dL (75-99)
[2020-07-28] MEDS: ONDANSETRON 4 MG/2 ML VIAL IVP PRN (08:13)
[2020-07-28] MEDS: FLUoxetine HCL 20 MG CAP PO SCH (08:15)
[2020-07-28] MEDS: HYDROcodone/APAP 5-325MG 1 EACH TAB PO PRN (08:15)
[2020-07-28] MEDS: LACOSAMIDE 50 MG TABLET PO SCH (08:16)
[2020-07-28] MEDS: PANTOPRAZOLE 40 MG/10 ML VIAL IV SCH (08:16)
--- NOTE | 2020-07-28 10:10 | P.PN ---
Subjective Progress Note Date: 07/28/20 CHIEF COMPLAINT: Nausea vomiting with abdominal pain HISTORY OF PRESENT ILLNESS: Patient seen and examined with Dr. Fagan. She is being followed for acute on chronic cholecystitis. Patient is scheduled for laparoscopic cholecystectomy tomorrow. She has no new complaints. Afebrile. WBC 4.0 BMP pending PHYSICAL EXAM: VITAL SIGNS: Reviewed. GENERAL: Well-developed in no acute distress. HEENT: No sclera icterus. Extraocular movements grossly intact. Moist buccal mucosa. Head is atraumatic, normocephalic. ABDOMEN: Soft. Nondistended. Nontender. NEUROLOGIC: Alert and oriented. Cranial nerves II through XII grossly intact. ASSESSMENT: 1. Acute on chronic cholecystitis 2. Hypokalemia PLAN: -Patient is scheduled for laparoscopic cholecystectomy tomorrow with Dr. Fagan -Nothing by mouth after midnight -Follow up on patient's potassium Physician Burrito Maker note has been reviewed by physician. Signing provider agrees with the documented findings, assessment, and plan of care. Objective - Vital Signs Vital signs: Vital Signs Temp 98.2 F 07/28/20 07:40 Pulse 86 07/28/20 07:40 Resp 18 07/28/20 07:40 BP 97/62 07/28/20 07:40 Pulse Ox 95 07/28/20 07:40 Intake & Output 07/27/20 07/28/20 07/28/20 18:59 06:59 18:59 Intake Total 400 Balance 400 Intake: Oral 400 Other: Voiding Method Bedpan # Voids 1 3 # Emeses 1 - Labs CBC & Chem 7: 07/28/20 05:28 07/27/20 11:05 Labs: Abnormal Lab Results - Last 24 Hours (Table) 07/27/20 07/27/20 07/27/20 Range/Units 11:05 11:05 11:17 RBC 3.04 L (3.80-5.40) m/uL Hgb 9.2 L D (11.4-16.0) gm/dL Hct 32.7 L (34.0-46.0) % MCV 107.7 H (80.0-100.0) fL MCHC 28.2 L (31.0-37.0) g/dL RDW 16.0 H (11.5-15.5) % Plt Count 105 L (150-450) k/uL Lymphocytes # 0.7 L (1.0-4.8) k/uL Lymphocytes # (Manual) (1.0-4.8) k/uL Macrocytosis Marked A Potassium 3.1 L (3.5-5.1) mmol/L Chloride 115 H (98-107) mmol/L Carbon Dioxide 20 L (22-30) mmol/L BUN 6 L (7-17) mg/dL POC Glucose (mg/dL) 100 H (75-99) mg/dL Calcium 8.1 L (8.4-10.2) mg/dL AST 59 H (14-36) U/L ALT 37 H (4-34) U/L Total Protein 4.7 L (6.3-8.2) g/dL Albumin 2.1 L (3.5-5.0) g/dL 07/28/20 07/28/20 Range/Units 05:28 07:03 RBC 3.13 L (3.80-5.40) m/uL Hgb 9.5 L (11.4-16.0) gm/dL Hct 33.5 L (34.0-46.0) % MCV 107.1 H (80.0-100.0) fL MCHC 28.3 L (31.0-37.0) g/dL RDW (11.5-15.5) % Plt Count 132 L (150-450) k/uL Lymphocytes # (1.0-4.8) k/uL Lymphocytes # (Manual) 0.92 L (1.0-4.8) k/uL Macrocytosis Marked A Potassium (3.5-5.1) mmol/L Chloride (98-107) mmol/L Carbon Dioxide (22-30) mmol/L BUN (7-17) mg/dL POC Glucose (mg/dL) 106 H (75-99) mg/dL Calcium (8.4-10.2) mg/dL AST (14-36) U/L ALT (4-34) U/L Total Protein (6.3-8.2) g/dL Albumin (3.5-5.0) g/dL Microbiology - Last 24 Hours (Table) 07/26/20 18:36 Blood Culture - Preliminary Blood No Growth after 24 hours 07/26/20 18:23 Blood Culture - Preliminary Blood No Growth after 24 hours 07/26/20 14:42 Urine Culture - Preliminary Urine,Voided Group D Enterococcus
[2020-07-28 10:13] LABS: African American GFR (CKD) 111.5 (60.0-200.0); Blood Urea Nitrogen <5.0 mg/dL (9.0-27.0); Calcium 8.3 mg/dL (8.7-10.3); Carbon Dioxide 21.6 mmol/L (21.6-31.8); Chloride 115 mmol/L (96-109); Glucose 93 mg/dL (70-110); Non-African American GFR(CKD) 96.2 (60.0-200.0); Potassium 4.3 mmol/L (3.5-5.5); Sodium 142 mmol/L (135-145)
[2020-07-28] MEDS: GABAPENTIN 300 MG CAP PO SCH ×3 (10:19→21:03)
[2020-07-28] MEDS: LEVOFLOXACIN 750MG-D5W PMX 750 MG in DEXTROSE/WATER 1 150ML.BAG IVPB SCH (10:21)
[2020-07-28 11:28] LABS: Glucose,Whole Blood 139 mg/dL (75-99)
--- NOTE | 2020-07-28 14:04 | P.PN ---
Subjective Progress Note Date: 07/28/20 Principal diagnosis: CC: Nausea vomiting Patient states that she had a large episode of emesis this morning. Nurse also confirmed this. Patient denies any significant cough or dysuria. 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 Psych - Calm and cooperative - Labs CBC & Chem 7: 07/28/20 05:28 07/28/20 05:28 Labs: Abnormal Lab Results - Last 24 Hours (Table) 07/28/20 07/28/20 07/28/20 Range/Units 05:28 05:28 07:03 RBC 3.13 L (3.80-5.40) m/uL Hgb 9.5 L (11.4-16.0) gm/dL Hct 33.5 L (34.0-46.0) % MCV 107.1 H (80.0-100.0) fL MCHC 28.3 L (31.0-37.0) g/dL Plt Count 132 L (150-450) k/uL Lymphocytes # (Manual) 0.92 L (1.0-4.8) k/uL Macrocytosis Marked A Chloride 115 H (96-109) mmol/L BUN <5.0 L (9.0-27.0) mg/dL POC Glucose (mg/dL) 106 H (75-99) mg/dL Calcium 8.3 L (8.7-10.3) mg/dL 07/28/20 Range/Units 11:27 RBC (3.80-5.40) m/uL Hgb (11.4-16.0) gm/dL Hct (34.0-46.0) % MCV (80.0-100.0) fL MCHC (31.0-37.0) g/dL Plt Count (150-450) k/uL Lymphocytes # (Manual) (1.0-4.8) k/uL Macrocytosis Chloride (96-109) mmol/L BUN (9.0-27.0) mg/dL POC Glucose (mg/dL) 139 H (75-99) mg/dL Calcium (8.7-10.3) mg/dL Microbiology - Last 24 Hours (Table) 07/26/20 18:36 Blood Culture - Preliminary Blood No Growth after 24 hours 07/26/20 18:23 Blood Culture - Preliminary Blood No Growth after 24 hours 07/26/20 14:42 Urine Culture - Preliminary Urine,Voided Group D Enterococcus Assessment and Plan Assessment: #Intractable nausea and vomiting with gallbladder sludge likely related to acute on chronic cholecystitis - hx of gastritis on EGD - Amylase lipase negative - IVF fluids, PPI, antiemetics - Recent Gastric emptying study 05/2020 was normal - HIDA scan showed gallbladder EF of 6% possible chronic cholecystitis versus biliary dyskinesia - Follow surgery consultation -Plans for laparoscopic cholecystectomy on Monday -Continue Levaquin Pneumonia seen on chest x-ray -Patient reports cough productive of green sputum since her discharge -Follow sputum and blood culture -Continue Levaquin -Patient says that her cough is improving UTI -urine culture growing group D enterococcus -Continue Levaquin as above -Patient currently denying dysuria Transaminitis with enlarged fatty liver - follow LFTs, improving - IVF - Hepatitis panel negative during previous admission RA - Methotrexate due monday - hold humaria DM 2 - not on medications - follow BS Macrocytosis - suspect due to MTX Chronic: HTN GERD Neuropathy Raynaud's Disposition: Patient will be going for a cholecystectomy on 07/29/2020. If patient symptoms improved she'll be stable for discharge in 2-3 days
[2020-07-28 16:29] LABS: Glucose,Whole Blood 95 mg/dL (75-99)
[2020-07-28 20:10] LABS: Hemoglobin A1C 4.7 % (4.0-6.0)
[2020-07-28 20:30] LABS: Glucose,Whole Blood 101 mg/dL (75-99)
[2020-07-29] MEDS: LACTATED RINGERS 1,000 ML IV SCH (05:05)
[2020-07-29] MEDS ORDERED: HYDROmorphone 0.5 MG/0.5 ML SYRINGE IVP PRN (06:00)
[2020-07-29 06:19] LABS: HGB 9.6 gm/dL (11.4-16.0); Hypochromasia Marked; MCHC 28.2 g/dL (31.0-37.0); MCV 106.6 fL (80.0-100.0); Macrocytosis Marked; Mean Platelet Volume 8.5; Platelet Count 129 k/uL (150-450); RBC 3.19 m/uL (3.80-5.40); RDW 15.7 % (11.5-15.5); WBC 4.7 k/uL (3.8-10.6)
[2020-07-29 06:57] LABS: Glucose,Whole Blood 106 mg/dL (75-99)
[2020-07-29] MEDS: GABAPENTIN 300 MG CAP PO SCH ×2 (07:45→21:31)
[2020-07-29] MEDS: PANTOPRAZOLE 40 MG/10 ML VIAL IV SCH (07:54)
[2020-07-29] MEDS: FLUoxetine HCL 20 MG CAP PO SCH (07:54)
[2020-07-29] MEDS: SODIUM CHLORIDE 0.9% 1,000 ML IV SCH ×2 (07:54→22:22)
[2020-07-29] MEDS: LACOSAMIDE 50 MG TABLET PO SCH (07:55)
[2020-07-29] MEDS: NITROFURANTOIN MONOHYD/M-CRYST 100 MG CAP PO SCH ×2 (08:25→21:31)
[2020-07-29] MEDS ORDERED: metHOTREXate sodium 2.5 MG TAB PO SCH (09:00)
[2020-07-29 09:49] LABS: ALT 34 U/L (8-44); AST 47 U/L (13-35); African American GFR (CKD) 117.3 (60.0-200.0); Albumin/Globulin Ratio 1.15 (1.60-3.17); Alkaline Phosphatase 112 U/L (41-126); Blood Urea Nitrogen <5.0 mg/dL (9.0-27.0); Calcium 8.2 mg/dL (8.7-10.3); Carbon Dioxide 23.1 mmol/L (21.6-31.8); Chloride 115 mmol/L (96-109); Glucose 95 mg/dL (70-110); Magnesium 1.4 mg/dL (1.5-2.4); Non-African American GFR(CKD) 101.2 (60.0-200.0); Potassium 3.6 mmol/L (3.5-5.5); Sodium 142 mmol/L (135-145); Total Bilirubin 0.8 mg/dL (0.3-1.2); Total Protein 4.3 g/dL (6.2-8.2)
[2020-07-29] MEDS: LEVOFLOXACIN 750MG-D5W PMX 750 MG in DEXTROSE/WATER 1 150ML.BAG IVPB SCH (10:55)
--- NOTE | 2020-07-29 11:16 | P.PN ---
Subjective Progress Note Date: 07/29/20 Principal diagnosis: CC: Nausea vomiting Patient denies any vomiting since yesterday morning. She states that she still feels nauseous. Patient is scheduled for cholecystectomy this afternoon. Her urine culture grew Enterococcus faecalis. Patient started on nitrofurantoin. 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 Psych - Calm and cooperative - Labs CBC & Chem 7: 07/29/20 05:44 07/29/20 05:44 Labs: Abnormal Lab Results - Last 24 Hours (Table) 07/28/20 07/28/20 07/29/20 Range/Units 11:27 20:27 05:44 RBC 3.19 L (3.80-5.40) m/uL Hgb 9.6 L (11.4-16.0) gm/dL MCV 106.6 H (80.0-100.0) fL MCHC 28.2 L (31.0-37.0) g/dL RDW 15.7 H (11.5-15.5) % Plt Count 129 L (150-450) k/uL Macrocytosis Marked A Chloride (96-109) mmol/L Anion Gap (4.00-12.00) mmol/L BUN (9.0-27.0) mg/dL POC Glucose (mg/dL) 139 H 101 H (75-99) mg/dL Calcium (8.7-10.3) mg/dL Magnesium (1.5-2.4) mg/dL AST (13-35) U/L Total Protein (6.2-8.2) g/dL Albumin (3.80-4.90) g/dL Albumin/Globulin Ratio (1.60-3.17) g/dL 07/29/20 07/29/20 Range/Units 05:44 06:56 RBC (3.80-5.40) m/uL Hgb (11.4-16.0) gm/dL MCV (80.0-100.0) fL MCHC (31.0-37.0) g/dL RDW (11.5-15.5) % Plt Count (150-450) k/uL Macrocytosis Chloride 115 H (96-109) mmol/L Anion Gap 3.90 L (4.00-12.00) mmol/L BUN <5.0 L (9.0-27.0) mg/dL POC Glucose (mg/dL) 106 H (75-99) mg/dL Calcium 8.2 L (8.7-10.3) mg/dL Magnesium 1.4 L (1.5-2.4) mg/dL AST 47 H (13-35) U/L Total Protein 4.3 L (6.2-8.2) g/dL Albumin 2.30 L (3.80-4.90) g/dL Albumin/Globulin Ratio 1.15 L (1.60-3.17) g/dL Microbiology - Last 24 Hours (Table) 07/26/20 14:42 Urine Culture - Final Urine,Voided Enterococcus faecalis 07/26/20 18:36 Blood Culture - Preliminary Blood No Growth after 48 hours 07/26/20 18:23 Blood Culture - Preliminary Blood No Growth after 48 hours Assessment and Plan Assessment: #Intractable nausea and vomiting with gallbladder sludge likely related to acute on chronic cholecystitis - hx of gastritis on EGD - Amylase lipase negative - IVF fluids, PPI, antiemetics - Recent Gastric emptying study 05/2020 was normal - HIDA scan showed gallbladder EF of 6% possible chronic cholecystitis versus biliary dyskinesia - Follow surgery consultation -Plans for laparoscopic cholecystectomy today -Continue Levaquin #Pneumonia seen on chest x-ray -Patient reports cough productive of green sputum since her discharge -Follow sputum and blood culture -Continue Levaquin day 3/5 -Patient says that her cough is improving UTI -urine culture Enterococcus faecalis resistant to fluoroquinolones -Started nitrofurantoin day 1 -Patient currently denying dysuria Transaminitis with enlarged fatty liver - follow LFTs, improving - IVF - Hepatitis panel negative during previous admission RA - Methotrexate on monday - hold humaria DM 2 - not on medications - follow BS Macrocytosis - suspect due to MTX Chronic: HTN GERD Neuropathy Raynaud's
[2020-07-29] MEDS ORDERED: IV FLUID CONTINUATION 1,000 ML IV ONE (11:45)
[2020-07-29] MEDS ORDERED: DEXAMETHASONE SOD PHOSPHATE 10 MG/ML 1 ML VIAL IV ONE (11:49)
[2020-07-29] MEDS ORDERED: ONDANSETRON 4 MG/2 ML VIAL IVP ONE (11:49)
[2020-07-29] MEDS ORDERED: HEPARIN SODIUM,PORCINE 5,000 UNIT/ML 1 ML VIAL ONE (11:57)
[2020-07-29] MEDS ORDERED: HEPARIN SODIUM,PORCINE 5,000 UNIT/ML 1 ML VIAL SQ ONE (12:35)
[2020-07-29] MEDS ORDERED: LIDOCAINE 1% INJ 10MG/ML (20 ML MDV) ONE (13:00)
[2020-07-29] MEDS ORDERED: SUCCINYLCHOLINE CHLORIDE 100 MG/5 ML SYR IV ONE (13:00)
[2020-07-29] MEDS ORDERED: fentaNYL (PF) 50 MCG/ML 2 ML AMP ONE (13:00)
[2020-07-29] MEDS ORDERED: ePHEDrine SULFATE/0.9% NACL/PF 50 MG/5 ML SYRINGE IV ONE (13:00)
[2020-07-29] MEDS ORDERED: MIDAZOLAM 2 MG/2 ML VIAL ONE (13:00)
[2020-07-29] MEDS ORDERED: PROPOFOL 10 MG/ML 20 ML VIAL IV ONE (13:00)
[2020-07-29] MEDS ORDERED: LACTATED RINGERS 1,000 ML IV ONE (13:15)
[2020-07-29] MEDS ORDERED: BUPIVACAINE (PF) 0.5% 30 ML VIAL SQ ONE (13:32)
--- NOTE | 2020-07-29 13:51 | P.OP ---
Date of Procedure: 07/29/20 Preoperative Diagnosis: Cholecystitis Cholelithiasis Postoperative Diagnosis: Cholecystitis Cholelithiasis Procedure(s) Performed: Laparoscopic cholecystectomy Anesthesia: YARED Surgeon: Myles Fagan Pathology: other (Gallbladder) Condition: stable Disposition: PACU Description of Procedure: The patient was placed on the operating table. The patient received a general endotracheal tube anesthesia. The patients abdomen was prepped and draped in the usual sterile fashion. Through an infraumbilical stab incision, the fascia of the anterior abdominal wall was grasped with a pair of Kochers and then the Veress needle was placed in the peritoneal cavity. Position of the Veress needle was confirmed with positive drop test. The abdomen was then insufflated. After adequate insufflation, the 10 mm trocar was placed in the peritoneal cavity. Following this the laparoscope was placed in the peritoneal cavity. The patient was placed in the head-up, right side up position and then a 5 mm trocar was placed in the right lateral and right subcostal position under direct visualization. A 8 mm trocar was placed in the epigastric position. The gallbladder was grasped in the fundus and infundibulum. Traction on the gallbladder was placed in the lateral and the cephalad positions. The triangle of Calot was visualized.. The cystic duct was bluntly dissected until the union of the cystic duct and common bile duct was seen. A critical view of safety was achieved. The cystic duct was then divided and sealed with the Harmonic scissors. A PDS Endoloop was then placed throughout the cystic duct stump. The cystic artery divided and sealed with the Harmonic scissors. The gallbladder was then removed from the liver bed using Harmonic scissors. The gallbladder was then extracted through the epigastric port site. Operative field was checked for any bleeding spots and Harmonic scissors was used to coagulate the liver bed. The abdomen was irrigated. The trocars were removed. The skin was closed using interrupted 3-0 Vicryl suture. Dermabond dressing were applied. The patient tolerated the procedure well.
[2020-07-29 14:49] LABS: Glucose,Whole Blood 146 mg/dL (75-99)
[2020-07-29 16:58] LABS: Glucose,Whole Blood 169 mg/dL (75-99)
[2020-07-29 21:28] LABS: Glucose,Whole Blood 182 mg/dL (75-99)
[2020-07-30] MEDS: LACTATED RINGERS 1,000 ML IV SCH (04:31)
[2020-07-30 06:48] LABS: HCT 32.2 % (34.0-46.0); HGB 9.2 gm/dL (11.4-16.0); Hypochromasia Marked; MCH 29.5 pg (25.0-35.0); MCHC 28.4 g/dL (31.0-37.0); Macrocytosis Moderate; Mean Platelet Volume 8.8; Platelet Count 108 k/uL (150-450); RDW 15.5 % (11.5-15.5); WBC 5.8 k/uL (3.8-10.6)
[2020-07-30 07:12] LABS: Glucose,Whole Blood 93 mg/dL (75-99)
[2020-07-30] MEDS: LACOSAMIDE 50 MG TABLET PO SCH (08:57)
[2020-07-30] MEDS: NITROFURANTOIN MONOHYD/M-CRYST 100 MG CAP PO SCH ×2 (08:57→21:31)
[2020-07-30] MEDS: PANTOPRAZOLE 40 MG/10 ML VIAL IV SCH (08:57)
[2020-07-30] MEDS: FLUoxetine HCL 20 MG CAP PO SCH (08:57)
[2020-07-30 09:23] LABS: ALT 40 U/L (8-44); AST 60 U/L (13-35); African American GFR (CKD) 117.3 (60.0-200.0); Albumin/Globulin Ratio 1.16 (1.60-3.17); Alkaline Phosphatase 109 U/L (41-126); Blood Urea Nitrogen <5.0 mg/dL (9.0-27.0); Calcium 8.1 mg/dL (8.7-10.3); Carbon Dioxide 23.5 mmol/L (21.6-31.8); Chloride 114 mmol/L (96-109); Globulin 1.9 g/dL (1.6-3.3); Glucose 96 mg/dL (70-110); Non-African American GFR(CKD) 101.2 (60.0-200.0); Potassium 3.3 mmol/L (3.5-5.5); Sodium 143 mmol/L (135-145); Total Bilirubin 0.8 mg/dL (0.2-1.2); Total Protein 4.1 g/dL (6.2-8.2)
[2020-07-30] MEDS: LEVOFLOXACIN 750MG-D5W PMX 750 MG in DEXTROSE/WATER 1 150ML.BAG IVPB SCH (10:57)
[2020-07-30] MEDS ORDERED: POTASSIUM CHLORIDE ER 20 MEQ TAB.ER PO STA (11:01)
--- NOTE | 2020-07-30 11:04 | P.PN ---
Subjective Progress Note Date: 07/30/20 CHIEF COMPLAINT: Nausea vomiting with abdominal pain HISTORY OF PRESENT ILLNESS: She is being followed for acute on chronic cholecystitis. Patient is status post laparoscopic cholecystectomy. She had one episode of vomiting this morning. She is passing gas. No BM. She is afebrile. White count 5.8 hemoglobin 9.2 potassium 3.3 magnesium 1.3 patient on regular diet PHYSICAL EXAM: VITAL SIGNS: Reviewed. GENERAL: Well-developed in no acute distress. HEENT: No sclera icterus. Extraocular movements grossly intact. Moist buccal mucosa. Head is atraumatic, normocephalic. ABDOMEN: Soft. Nondistended. Incision sites clean dry and intact NEUROLOGIC: Alert and oriented. Cranial nerves II through XII grossly intact. ASSESSMENT: 1. Acute on chronic cholecystitis status post laparoscopic cholecystectomy. Postop day #1 2. Hypokalemia 3. Hypomagnesemia PLAN: -Due to vomiting we'll put patient back to a clear liquid diet -Replace magnesium and potassium -Repeat labs in a.m. Physician Account Resolution Specialist note has been reviewed by physician. Signing provider agrees with the documented findings, assessment, and plan of care. Objective - Vital Signs Vital signs: Vital Signs Temp 98.3 F 07/30/20 07:00 Pulse 99 07/30/20 07:32 Resp 16 07/30/20 07:32 BP 128/77 07/30/20 07:00 Pulse Ox 97 07/30/20 07:00 Intake & Output 07/29/20 07/30/20 07/30/20 18:59 06:59 18:59 Intake Total 1596 300 Output Total 10 Balance 1586 300 Weight 56.699 kg Intake: IV 1000 Oral 596 300 Output: Estimated Blood Loss 10 Other: Voiding Method Bedpan Bedpan Bedpan # Voids 1 3 - Labs CBC & Chem 7: 07/30/20 06:12 07/30/20 06:12 Labs: Abnormal Lab Results - Last 24 Hours (Table) 07/29/20 07/29/20 07/29/20 Range/Units 14:47 16:57 21:27 RBC (3.80-5.40) m/uL Hgb (11.4-16.0) gm/dL Hct (34.0-46.0) % MCV (80.0-100.0) fL MCHC (31.0-37.0) g/dL Plt Count (150-450) k/uL Potassium (3.5-5.5) mmol/L Chloride (96-109) mmol/L BUN (9.0-27.0) mg/dL POC Glucose (mg/dL) 146 H 169 H 182 H (75-99) mg/dL Calcium (8.7-10.3) mg/dL Magnesium (1.5-2.4) mg/dL AST (13-35) U/L Total Protein (6.2-8.2) g/dL Albumin (3.80-4.90) g/dL Albumin/Globulin Ratio (1.60-3.17) g/dL 07/30/20 07/30/20 07/30/20 Range/Units 06:12 06:12 06:12 RBC 3.10 L (3.80-5.40) m/uL Hgb 9.2 L (11.4-16.0) gm/dL Hct 32.2 L (34.0-46.0) % MCV 104.0 H (80.0-100.0) fL MCHC 28.4 L (31.0-37.0) g/dL Plt Count 108 L (150-450) k/uL Potassium 3.3 L (3.5-5.5) mmol/L Chloride 114 H (96-109) mmol/L BUN <5.0 L (9.0-27.0) mg/dL POC Glucose (mg/dL) (75-99) mg/dL Calcium 8.1 L (8.7-10.3) mg/dL Magnesium 1.3 L (1.5-2.4) mg/dL AST 60 H (13-35) U/L Total Protein 4.1 L (6.2-8.2) g/dL Albumin 2.20 L (3.80-4.90) g/dL Albumin/Globulin Ratio 1.16 L (1.60-3.17) g/dL Microbiology - Last 24 Hours (Table) 07/26/20 18:36 Blood Culture - Preliminary Blood No Growth after 72 hours 07/26/20 18:23 Blood Culture - Preliminary Blood No Growth after 72 hours
[2020-07-30 11:46] LABS: Glucose,Whole Blood 117 mg/dL (75-99)
[2020-07-30] MEDS: MAGNESIUM SULFATE-D5W PMX 1 GM in DEXTROSE/WATER 1 100ML.BAG IVPB SCH ×2 (12:15→14:05)
[2020-07-30] MEDS: SODIUM CHLORIDE 0.9% 1,000 ML IV SCH ×2 (12:18→23:15)
--- NOTE | 2020-07-30 12:56 | P.PN ---
Subjective Progress Note Date: 07/30/20 Patient reported being nauseous this morning. She vomited once after breakfast. She denies any significant abdominal pain. Objective - Vital Signs Vital signs: Vital Signs Temp 98.3 F 07/30/20 07:00 Pulse 99 07/30/20 07:32 Resp 16 07/30/20 07:32 BP 128/77 07/30/20 07:00 Pulse Ox 97 07/30/20 07:00 Intake & Output 07/29/20 07/30/20 07/30/20 18:59 06:59 18:59 Intake Total 1596 300 Output Total 10 Balance 1586 300 Weight 56.699 kg Intake: IV 1000 Oral 596 300 Output: Estimated Blood Loss 10 Other: Voiding Method Bedpan Bedpan Bedpan # Voids 1 3 - Exam General: The patient is awake and alert, in no distress Eye: there is normal conjunctiva bilaterally. Neck: The neck is supple, there is no JVD. Cardiovascular: Normal S1-S2, no S3-S4, no murmurs. Respiratory: Lungs clear to auscultation bilaterally Gastrointestinal: Abdomen is soft, nontender. Surgical incision sites appear to be healing well Musculoskeletal: There is no pedal edema on the left. The right BKA Neurological:. Speech is normal. Skin: Skin is warm and dry - Labs CBC & Chem 7: 07/30/20 06:12 07/30/20 06:12 Labs: Abnormal Lab Results - Last 24 Hours (Table) 07/29/20 07/29/20 07/29/20 Range/Units 14:47 16:57 21:27 RBC (3.80-5.40) m/uL Hgb (11.4-16.0) gm/dL Hct (34.0-46.0) % MCV (80.0-100.0) fL MCHC (31.0-37.0) g/dL Plt Count (150-450) k/uL Potassium (3.5-5.5) mmol/L Chloride (96-109) mmol/L BUN (9.0-27.0) mg/dL POC Glucose (mg/dL) 146 H 169 H 182 H (75-99) mg/dL Calcium (8.7-10.3) mg/dL Magnesium (1.5-2.4) mg/dL AST (13-35) U/L Total Protein (6.2-8.2) g/dL Albumin (3.80-4.90) g/dL Albumin/Globulin Ratio (1.60-3.17) g/dL 07/30/20 07/30/20 07/30/20 Range/Units 06:12 06:12 06:12 RBC 3.10 L (3.80-5.40) m/uL Hgb 9.2 L (11.4-16.0) gm/dL Hct 32.2 L (34.0-46.0) % MCV 104.0 H (80.0-100.0) fL MCHC 28.4 L (31.0-37.0) g/dL Plt Count 108 L (150-450) k/uL Potassium 3.3 L (3.5-5.5) mmol/L Chloride 114 H (96-109) mmol/L BUN <5.0 L (9.0-27.0) mg/dL POC Glucose (mg/dL) (75-99) mg/dL Calcium 8.1 L (8.7-10.3) mg/dL Magnesium 1.3 L (1.5-2.4) mg/dL AST 60 H (13-35) U/L Total Protein 4.1 L (6.2-8.2) g/dL Albumin 2.20 L (3.80-4.90) g/dL Albumin/Globulin Ratio 1.16 L (1.60-3.17) g/dL 07/30/20 Range/Units 11:45 RBC (3.80-5.40) m/uL Hgb (11.4-16.0) gm/dL Hct (34.0-46.0) % MCV (80.0-100.0) fL MCHC (31.0-37.0) g/dL Plt Count (150-450) k/uL Potassium (3.5-5.5) mmol/L Chloride (96-109) mmol/L BUN (9.0-27.0) mg/dL POC Glucose (mg/dL) 117 H (75-99) mg/dL Calcium (8.7-10.3) mg/dL Magnesium (1.5-2.4) mg/dL AST (13-35) U/L Total Protein (6.2-8.2) g/dL Albumin (3.80-4.90) g/dL Albumin/Globulin Ratio (1.60-3.17) g/dL Microbiology - Last 24 Hours (Table) 07/26/20 18:36 Blood Culture - Preliminary Blood No Growth after 72 hours 07/26/20 18:23 Blood Culture - Preliminary Blood No Growth after 72 hours Assessment and Plan Assessment: This is a 59-year-old female with complex past medical history noted below who presented to the emergency room with worsening nausea and vomiting. Patient was evaluated in the ER and admitted to the hospital for further management of her medical problems noted below. #Intractable nausea and vomiting with gallbladder sludge likely related to acute on chronic cholecystitis - Postoperative day #1 status post laparoscopic cholecystectomy - hx of gastritis on EGD - Amylase lipase negative - IVF fluids, PPI, antiemetics - Recent Gastric emptying study 05/2020 was normal - HIDA scan showed gallbladder EF of 6% possible chronic cholecystitis versus biliary dyskinesia #Pneumonia seen on chest x-ray -Patient reports cough productive of green sputum since her discharge -Follow sputum and blood culture -Continue Levaquin day 4/ -Patient says that her cough is improving UTI -urine culture Enterococcus faecalis resistant to fluoroquinolones -Started nitrofurantoin day 2 -Patient currently denying dysuria Transaminitis with enlarged fatty liver - follow LFTs, improving - Hepatitis panel negative during previous admission RA - Methotrexate on monday - hold humira Macrocytosis - suspect due to MTX Chronic: HTN GERD Neuropathy Raynaud's Right BKA Continue supportive care. Advance diet as directed by general surgery. Anticipate discharge tomorrow if nausea improving
[2020-07-30 17:02] LABS: Glucose,Whole Blood 113 mg/dL (75-99)
[2020-07-30 21:14] LABS: Glucose,Whole Blood 135 mg/dL (75-99)
[2020-07-30] MEDS: GABAPENTIN 300 MG CAP PO SCH (21:30)
[2020-07-31] MEDS: LACTATED RINGERS 1,000 ML IV SCH (05:21)
[2020-07-31 06:48] LABS: Glucose,Whole Blood 97 mg/dL (75-99)
[2020-07-31 07:29] LABS: Basophils # (A) 0.1 k/uL (0-0.2); Basophils % (A) 1 %; Eosinophils # (A) 0.4 k/uL (0-0.7); Eosinophils % (A) 8 %; HCT 29.9 % (34.0-46.0); HGB 8.6 gm/dL (11.4-16.0); Hypochromasia Marked; Lymphocytes # (A) 1.3 k/uL (1.0-4.8); Lymphocytes % (A) 26 %; MCH 29.5 pg (25.0-35.0); MCHC 28.7 g/dL (31.0-37.0); MCV 102.8 fL (80.0-100.0); Macrocytosis Slight; Mean Platelet Volume 10.7; Monocytes # (A) 0.2 k/uL (0-1.0); Monocytes % (A) 5 %; Neutrophils % (A) 59 %; RDW 15.3 % (11.5-15.5); WBC 5.1 k/uL (3.8-10.6)
[2020-07-31] MEDS: LACOSAMIDE 50 MG TABLET PO SCH (09:00)
[2020-07-31] MEDS: NITROFURANTOIN MONOHYD/M-CRYST 100 MG CAP PO SCH (09:00)
[2020-07-31] MEDS: FLUoxetine HCL 20 MG CAP PO SCH (09:00)
[2020-07-31] MEDS: PANTOPRAZOLE 40 MG/10 ML VIAL IV SCH (09:00)
[2020-07-31 10:40] LABS: ALT 34 U/L (8-44); AST 39 U/L (13-35); Albumin/Globulin Ratio 1.17 (1.60-3.17); Alkaline Phosphatase 100 U/L (41-126); Blood Urea Nitrogen <5.0 mg/dL (9.0-27.0); Calcium 7.5 mg/dL (8.7-10.3); Carbon Dioxide 23.9 mmol/L (21.6-31.8); Chloride 115 mmol/L (96-109); Globulin 1.8 g/dL (1.6-3.3); Glucose 98 mg/dL (70-110); Magnesium 1.7 mg/dL (1.5-2.4); Non-African American GFR(CKD) 115.6 (60.0-200.0); Sodium 142 mmol/L (135-145); Total Bilirubin 0.9 mg/dL (0.3-1.2); Total Protein 3.9 g/dL (6.2-8.2)
[2020-07-31] MEDS ORDERED: POTASSIUM CHLORIDE ER 20 MEQ TAB.ER PO STA (11:16)
[2020-07-31 11:42] LABS: Glucose,Whole Blood 127 mg/dL (75-99)
[2020-07-31] MEDS: POTASSIUM CHLORIDE 10 MEQ in WATER FOR INJECTION 1 100ML.BAG IVPB SCH ×2 (12:03→13:59)
[2020-07-31] MEDS: ONDANSETRON 4 MG/2 ML VIAL IVP PRN (12:05)
--- NOTE | 2020-07-31 14:15 | P.PN ---
Subjective Progress Note Date: 07/31/20 CHIEF COMPLAINT: Nausea vomiting with abdominal pain HISTORY OF PRESENT ILLNESS: She is being followed for acute on chronic cholecystitis. Patient is status post laparoscopic cholecystectomy. She had one episode of vomiting last night. She is passing gas. No BM. She is afebrile. White count 5.1 hemoglobin 8.6 potassium 3.0 magnesium 1.7 patient tolerated regular diet this morning PHYSICAL EXAM: VITAL SIGNS: Reviewed. GENERAL: Well-developed in no acute distress. HEENT: No sclera icterus. Extraocular movements grossly intact. Moist buccal mucosa. Head is atraumatic, normocephalic. ABDOMEN: Soft. Nondistended. Incision sites clean dry and intact NEUROLOGIC: Alert and oriented. Cranial nerves II through XII grossly intact. ASSESSMENT: 1. Acute on chronic cholecystitis status post laparoscopic cholecystectomy. Postop day #2 2. Hypokalemia 3. Hypomagnesemia PLAN: -Patient is surgically stable for discharge -Patient to follow-up with Dr. Fagan in 1 week -Potassium being replaced by medicine Physician Crab Steamer note has been reviewed by physician. Signing provider agrees with the documented findings, assessment, and plan of care. Objective - Vital Signs Vital signs: Vital Signs Temp 97.6 F 07/31/20 07:22 Pulse 98 07/31/20 08:00 Resp 17 07/31/20 08:00 BP 88/55 07/31/20 07:22 Pulse Ox 93 L 07/31/20 07:22 Intake & Output 07/30/20 07/31/20 07/31/20 18:59 06:59 18:59 Intake Total 1100 Balance 1100 Intake: Intake, IV Titration 650 Amount Magnesium Sulfate-D5w Pmx 200 1 gm In Dextrose/Water 1 100ml.bag @ 100 mls/hr IVPB Q1H RUBIA Rx#: [id number] Sodium Chloride 0.9% 1, 450 000 ml @ 75 mls/hr IV . [id number] RUBIA Rx#:[id number] Oral 450 Other: Voiding Method Bedpan Bedpan Bedpan # Voids 3 4 - Labs CBC & Chem 7: 07/31/20 06:48 07/31/20 06:48 Labs: Abnormal Lab Results - Last 24 Hours (Table) 07/30/20 07/30/20 07/31/20 Range/Units 17:00 21:13 06:48 RBC (3.80-5.40) m/uL Hgb (11.4-16.0) gm/dL Hct (34.0-46.0) % MCV (80.0-100.0) fL MCHC (31.0-37.0) g/dL Potassium 3.0 L (3.5-5.5) mmol/L Chloride 115 H (96-109) mmol/L Anion Gap 3.10 L (4.00-12.00) mmol/L BUN <5.0 L (9.0-27.0) mg/dL Creatinine 0.4 L (0.6-1.5) mg/dL POC Glucose (mg/dL) 113 H 135 H (75-99) mg/dL Calcium 7.5 L (8.7-10.3) mg/dL AST 39 H (13-35) U/L Total Protein 3.9 L (6.2-8.2) g/dL Albumin 2.10 L (3.80-4.90) g/dL Albumin/Globulin Ratio 1.17 L (1.60-3.17) g/dL 07/31/20 07/31/20 Range/Units 06:48 11:40 RBC 2.90 L (3.80-5.40) m/uL Hgb 8.6 L (11.4-16.0) gm/dL Hct 29.9 L (34.0-46.0) % MCV 102.8 H (80.0-100.0) fL MCHC 28.7 L (31.0-37.0) g/dL Potassium (3.5-5.5) mmol/L Chloride (96-109) mmol/L Anion Gap (4.00-12.00) mmol/L BUN (9.0-27.0) mg/dL Creatinine (0.6-1.5) mg/dL POC Glucose (mg/dL) 127 H (75-99) mg/dL Calcium (8.7-10.3) mg/dL AST (13-35) U/L Total Protein (6.2-8.2) g/dL Albumin (3.80-4.90) g/dL Albumin/Globulin Ratio (1.60-3.17) g/dL Microbiology - Last 24 Hours (Table) 07/26/20 18:36 Blood Culture - Preliminary Blood No Growth after 96 hours 07/26/20 18:23 Blood Culture - Preliminary Blood No Growth after 96 hours
[2020-07-31 14:20] VITALS: BMI 20.7
[2020-07-31] MEDS ORDERED: bisacodyL 10 MG SUPP RECTAL STA (16:19)
[2020-07-31 16:29] LABS: Glucose,Whole Blood 152 mg/dL (75-99)
[2020-07-31] MEDS ORDERED: MAGNESIUM SULFATE-D5W PMX 1 GM in DEXTROSE/WATER 1 100ML.BAG IVPB ONE (18:05)
--- NOTE | 2020-07-31 18:06 | P.PN ---
Subjective Progress Note Date: 07/31/20 (delayed charting seen at 0930) Principal diagnosis: abdominal pain Patient is a 59-year-old female with a history of diabetes, rheumatoid arthritis, prior right BKA, and neuropathy who presented with intractable nausea and vomiting. She was recently admitted July 28 through the for the same problem. At that point in time she had a HIDA scan which showed a gallbladder ejection fraction of 6%. Surgery was consulted and recommended conservative management and outpatient follow-up. During this admission she underwent a KUB which showed possible left lower lobe pneumonia as well as again demonstrated on chest x-ray. Her initial blood work showed bilirubin 1.6, AST 76, ALT 52, alkaline phosphatase 65. She was started on IV antibiotics and fluids and was admitted. Surgical consult was obtained and there is concern for acute on chronic cholecystitis and they recommended left Rocephin cholecystectomy. This was completed on 07/29 and pathology as specimen demonstrated chronic cholecystitis. After surgery she continued to struggle with nausea and vomiting. Initial plan had been for discharge on 07/31 however she was challenged with the diet and again had emesis of discharge was subsequently delayed. Patient seen and examined at bedside. She continues to have mild abdominal pain that is worse with touching, she continues to have some nausea and decreased appetite. She states that "sound okay and she would like to try this. She denies any chest pain or shortness of breath. She complains of feeling tired. General: non toxic, no distress, appears older than stated age Derm: warm, dry Head: atraumatic, normocephalic, symmetric Eyes: EOMI, no lid lag, anicteric sclera Mouth: no lip lesion, mucus membranes moist Cardiovascular: S1S2 reg, no murmur, positive posterior tibial pulse left, Lungs: Decreased breath sounds bilateral, no rhonchi, no rales , no accessory muscle use Abdominal: soft, tenderness to palpation diffusely, no guarding, no appreciable organomegaly Ext: Right BKA, no gross muscle atrophy, no edema, no contractures Neuro: CN II-XI grossly intact, no focal neuro deficits Psych: Alert, oriented, appropriate affect Acute on chronic cholecystitis - S/p lap xavier - pain control, antiemetics - IVF - D/C levaquin and continue rocephin Post-op nausea and vomiting, constipation - start bowel regiment - out of bed - antiemetics - PPI Entercoccus UTI - Will be covered by rocephin will D/C macrobid Pneumonia - completed 5 days of treatment today Hypokalemia - replace and recheck in AM Transaminits, improving - due to cholecysttis - no need to continue to follow Rheumatoid arthritis - metotrexate - hold humaria Anemia, chronic - at baseline, hemoconcentrated on admission - follow CBC Chronic: HTN GERD Neuropathy Raynaud's Right BKA DVT prophylaxis: Heparin Discussed with: Patient, nursing Anticipated discharge: in AM Anticipated discharge place: home A total of 40 minutes was spent on the care of this complex patient more than 50% of the time was spent in counseling and care coordination. Objective - Vital Signs Vital signs: Vital Signs Temp 98.1 F 07/31/20 14:47 Pulse 79 07/31/20 15:48 Resp 18 07/31/20 15:48 BP 113/67 07/31/20 14:47 Pulse Ox 99 07/31/20 14:47 Intake & Output 07/30/20 07/31/20 07/31/20 18:59 06:59 18:59 Intake Total 1100 1472 Output Total 700 Balance 1100 772 Weight 56.699 kg Intake: Intake, IV Titration 650 950 Amount Levofloxacin 750Mg-D5w 150 Pmx 750 mg In Dextrose/ Water 1 150ml.bag @ 100 mls/hr IVPB Q24H [facility] Rx#: [id number] Magnesium Sulfate-D5w Pmx 200 1 gm In Dextrose/Water 1 100ml.bag @ 100 mls/hr IVPB Q1H [facility] Rx#: [id number] Potassium Chloride 10 meq 200 In Water For Injection 1 100ml.bag @ 100 mls/hr IVPB Q1H [facility] Rx#: [id number] Sodium Chloride 0.9% 1, 450 600 000 ml @ 75 mls/hr IV . [id number] [facility] Rx#:[id number] Oral 450 522 Output: Urine 700 Other: Voiding Method Bedpan Bedpan Bedpan # Voids 3 4 3 - Labs CBC & Chem 7: 07/31/20 06:48 07/31/20 06:48 Labs: Abnormal Lab Results - Last 24 Hours (Table) 07/30/20 07/31/20 07/31/20 Range/Units 21:13 06:48 06:48 RBC 2.90 L (3.80-5.40) m/uL Hgb 8.6 L (11.4-16.0) gm/dL Hct 29.9 L (34.0-46.0) % MCV 102.8 H (80.0-100.0) fL MCHC 28.7 L (31.0-37.0) g/dL Potassium 3.0 L (3.5-5.5) mmol/L Chloride 115 H (96-109) mmol/L Anion Gap 3.10 L (4.00-12.00) mmol/L BUN <5.0 L (9.0-27.0) mg/dL Creatinine 0.4 L (0.6-1.5) mg/dL POC Glucose (mg/dL) 135 H (75-99) mg/dL Calcium 7.5 L (8.7-10.3) mg/dL AST 39 H (13-35) U/L Total Protein 3.9 L (6.2-8.2) g/dL Albumin 2.10 L (3.80-4.90) g/dL Albumin/Globulin Ratio 1.17 L (1.60-3.17) g/dL 07/31/20 07/31/20 Range/Units 11:40 16:27 RBC (3.80-5.40) m/uL Hgb (11.4-16.0) gm/dL Hct (34.0-46.0) % MCV (80.0-100.0) fL MCHC (31.0-37.0) g/dL Potassium (3.5-5.5) mmol/L Chloride (96-109) mmol/L Anion Gap (4.00-12.00) mmol/L BUN (9.0-27.0) mg/dL Creatinine (0.6-1.5) mg/dL POC Glucose (mg/dL) 127 H 152 H (75-99) mg/dL Calcium (8.7-10.3) mg/dL AST (13-35) U/L Total Protein (6.2-8.2) g/dL Albumin (3.80-4.90) g/dL Albumin/Globulin Ratio (1.60-3.17) g/dL Microbiology - Last 24 Hours (Table) 07/26/20 18:36 Blood Culture - Preliminary Blood No Growth after 96 hours 07/26/20 18:23 Blood Culture - Preliminary Blood No Growth after 96 hours
[2020-07-31 21:00] LABS: Glucose,Whole Blood 137 mg/dL (75-99)
[2020-07-31] MEDS: SODIUM CHLORIDE 0.9% 1,000 ML IV SCH (21:43)
[2020-07-31] MEDS: GABAPENTIN 300 MG CAP PO SCH (21:44)
[2020-08-01] MEDS: HEPARIN SODIUM,PORCINE 5,000 UNIT/ML 1 ML VIAL SQ SCH ×2 (00:22→08:04)
[2020-08-01] MEDS: SODIUM CHLORIDE 0.9% 1,000 ML IV SCH (00:24)
[2020-08-01] MEDS: LACTATED RINGERS 1,000 ML IV SCH (04:39)
[2020-08-01 06:37] LABS: HCT 32.3 % (34.0-46.0); HGB 9.3 gm/dL (11.4-16.0); Hypochromasia Marked; MCH 29.9 pg (25.0-35.0); MCHC 28.7 g/dL (31.0-37.0); Macrocytosis Moderate; Mean Platelet Volume 11.6; RDW 15.5 % (11.5-15.5); WBC 7.4 k/uL (3.8-10.6)
[2020-08-01 06:57] LABS: Glucose,Whole Blood 95 mg/dL (75-99)
[2020-08-01 07:00] LABS: Platelet Count 93 k/uL (150-450)
[2020-08-01] MEDS: HYDROcodone/APAP 5-325MG 1 EACH TAB PO PRN (08:02)
[2020-08-01] MEDS: FLUoxetine HCL 20 MG CAP PO SCH (08:02)
[2020-08-01] MEDS: LACOSAMIDE 50 MG TABLET PO SCH (08:03)
[2020-08-01] MEDS: PANTOPRAZOLE 40 MG/10 ML VIAL IV SCH (08:06)
[2020-08-01 08:12] VITALS: BP 126/84; PULSE 86; RESP 20; TEMP 97.8
[2020-08-01 09:54] LABS: Blood Urea Nitrogen <5.0 mg/dL (9.0-27.0); Calcium 7.6 mg/dL (8.7-10.3); Carbon Dioxide 22.8 mmol/L (21.6-31.8); Chloride 115 mmol/L (96-109); Glucose 101 mg/dL (70-110); Magnesium 1.9 mg/dL (1.5-2.4); Non-African American GFR(CKD) 115.6 (60.0-200.0); Potassium 3.6 mmol/L (3.5-5.5); Sodium 140 mmol/L (135-145)
[2020-08-01 11:36] LABS: Glucose,Whole Blood 153 mg/dL (75-99)
--- NOTE | 2020-08-01 15:02 | P.DS ---
Providers Date of admission: 07/27/20 14:03 Expected date of discharge: 08/01/20 Attending physician: Lencho Van MD Consults: 07/26/20 16:35 Consult Physician Urgent Consulting Provider: Myles Fagan Consult Reason/Comments: vomiting, elevated LFT's Do you want consulting provider notified?: Yes Primary care physician: Noa Mae Hospital Course: Discharge Diagnosis: Acute on chronic cholecystitis Postop nausea and vomiting Constipation Enterococcus urinary tract infection Pneumonia Hypokalemia Transaminitis Rheumatoid arthritis Chronic anemia Hospital Course: Patient is a 59-year-old female with a history of diabetes, rheumatoid arthritis, prior right BKA, and neuropathy who presented with intractable nausea and vomiting. She was recently admitted July 28 through the for the same problem. At that point in time she had a HIDA scan which showed a gallbladder ejection fraction of 6%. Surgery was consulted and recommended conservative management and outpatient follow-up. During this admission she underwent a KUB which showed possible left lower lobe pneumonia as well as again demonstrated on chest x-ray. Her initial blood work showed bilirubin 1.6, AST 76, ALT 52, alkaline phosphatase 65. She was started on IV antibiotics and fluids and was admitted. Surgical consult was obtained and there is concern for acute on chronic cholecystitis and they recommended left Rocephin cholecystectomy. This was completed on 07/29 and pathology as specimen demonstrated chronic cholecystitis. After surgery she continued to struggle with nausea and vomiting. Initial plan had been for discharge on 07/31 however she was challenged with the diet and again had emesis of discharge was subsequently delayed. It came to light she had not had a bowel movement significant amount of time. She was given a dose of rectal doculax. She did have a bowel movement. She then began tolerating a diet and was no longer nauseous. She was subsequently discharged home on the morning of 08/01/2020. She will complete a total of 10 days of antibiotics for her acute xavier cystitis. She'll follow up with Dr. Mae in 1-[address] Fagan in 1 week. Patient seen and examined at bedside. Still having low appetite but no longer nauseous. Pain is well controlled. Had a bowel movement yesterday. Vital signs reviewed and stable. General: non toxic, no distress, appears older than stated age Derm: warm, dry Head: atraumatic, normocephalic, symmetric Eyes: EOMI, no lid lag, anicteric sclera Mouth: no lip lesion, mucus membranes moist Cardiovascular: S1S2 reg, no murmur, Lungs: CTA bilateral, no rhonchi, no rales , no accessory muscle use Abdominal: soft, nontender to palpation, no guarding, no appreciable organomegaly Ext: no gross muscle atrophy, no edema, no contractures, right BKA Neuro: CN II-XI grossly intact, no focal neuro deficits Psych: Alert, oriented, appropriate affect A total of 32 minutes of time were spent preparing this complex discharge summary . Patient Condition at Discharge: Good Plan - Discharge Summary Discharge Rx Participant: Yes New Discharge Prescriptions: New Ibuprofen [Motrin] 600 mg PO Q8HR PRN #15 tab PRN Reason: Pain Acetaminophen Tab [Tylenol Tab] 650 mg PO Q4H PRN #30 tablet PRN Reason: Pain Cefpodoxime Proxetil [Vantin] 200 mg PO Q12HR #8 tab bisacodyL [Dulcolax] 5 mg PO DAILY #30 tablet.dr Continue metHOTREXate sodium [Methotrexate] 7.5 mg PO WE Potassium Chloride ER [K-Dur 20] 20 meq PO BID FLUoxetine HCL [PROzac] 20 mg PO DAILY ARIPiprazole [Abilify] 20 mg PO HS Lacosamide [Vimpat] 50 mg PO DAILY Omeprazole 20 mg PO DAILY Ondansetron HCl [Zofran] 8 mg PO DAILY PRN PRN Reason: Nausea Folic Acid 1 mg PO DAILY Adalimumab [Humira(Cf) Pen] 40 mg SQ Q14D Discharge Medication List metHOTREXate sodium [Methotrexate] 7.5 mg PO WE 04/27/18 [History] ARIPiprazole [Abilify] 20 mg PO HS 07/09/19 [History] FLUoxetine HCL [PROzac] 20 mg PO DAILY 07/09/19 [History] Potassium Chloride ER [K-Dur 20] 20 meq PO BID 07/09/19 [History] Lacosamide [Vimpat] 50 mg PO DAILY 03/31/20 [History] Omeprazole 20 mg PO DAILY 03/31/20 [History] Ondansetron HCl [Zofran] 8 mg PO DAILY PRN 03/31/20 [History] Adalimumab [Humira(Cf) Pen] 40 mg SQ Q14D 07/18/20 [History] Folic Acid 1 mg PO DAILY 07/18/20 [History] Acetaminophen Tab [Tylenol Tab] 650 mg PO Q4H PRN #30 tablet 07/31/20 [Rx] Ibuprofen [Motrin] 600 mg PO Q8HR PRN #15 tab 07/31/20 [Rx] Cefpodoxime Proxetil [Vantin] 200 mg PO Q12HR #8 tab 08/01/20 [Rx] bisacodyL [Dulcolax] 5 mg PO DAILY #30 tablet. 08/01/20 [Rx] Follow up Appointment(s)/Referral(s): [facility] - Noa Mae MD [Primary Care Provider] - 1-2 days Myles Fagan MD [STAFF PHYSICIAN] - 1 Week Patient Instructions/Handouts: Pneumonia (DC) Activity/Diet/Wound Care/Special Instructions: Activity: as tolerated Diet: low fat, carb consistent Discharge Disposition: HOME SELF-CARE
== END 2020-08-01 13:28 | disposition home or self-care (01) | DRG 417 ==
LOC: EC 13:51 → 1SOBS 16:34 → 4SSUR 17:22 → OBSVTOIN 07-27 14:03
PROVIDERS: ADMIT Family Medicine; ATTEND Family Medicine
PROC: 0FT44ZZ Resection of Gallbladder, Percutaneous Endoscopic Approach (ICD-10-PCS; principal; 2020-07-29 13:10)
DX: K80.12 Calculus of gallbladder with acute and chronic cholecystitis without obstruction (principal); J18.9 Pneumonia, unspecified organism; N39.0 Urinary tract infection, site not specified; Z16.23 Resistance to quinolones and fluoroquinolones; B95.2 Enterococcus as the cause of diseases classified elsewhere; D64.9 Anemia, unspecified; D75.89 Other specified diseases of blood and blood-forming organs; E11.43 Type 2 diabetes mellitus with diabetic autonomic (poly)neuropathy; E11.649 Type 2 diabetes mellitus with hypoglycemia without coma; E83.42 Hypomagnesemia; E87.6 Hypokalemia; F17.200 Nicotine dependence, unspecified, uncomplicated; F32.9 Major depressive disorder, single episode, unspecified; I10 Essential (primary) hypertension; I73.00 Raynaud's syndrome without gangrene; K21.9 Gastro-esophageal reflux disease without esophagitis; K31.84 Gastroparesis; K59.00 Constipation, unspecified; K76.0 Fatty (change of) liver, not elsewhere classified; M06.9 Rheumatoid arthritis, unspecified; Z79.899 Other long term (current) drug therapy; Z82.49 Family history of ischemic heart disease and other diseases of the circulatory system; Z83.3 Family history of diabetes mellitus; Z86.010 Personal history of colon polyps; Z87.442 Personal history of urinary calculi; Z89.511 Acquired absence of right leg below knee; Z96.611 Presence of right artificial shoulder joint; Z86.14 Personal history of Methicillin resistant Staphylococcus aureus infection
CPT/HCPCS: 36415; 71046; 74018; 80048; 80053; 81001; 82150; 83036; 83605; 83690; 83735; 85025; 85027; 85652; 86140; 87040; 87077; 87086; 87186; 88304; 93005; 96374; 96375; 99285

== ENCOUNTER → 2020-12-15 | Outpatient (CLI) | payer MEDICARE, OTHER ==
[2020-12-15 20:53] LABS: ALT 11 U/L (8-44); AST 12 U/L (13-35); African American GFR (CKD) 110.7 (60.0-200.0); Albumin/Globulin Ratio 1.64 (1.60-3.17); Alkaline Phosphatase 118 U/L (41-126); BUN/Creat Ratio 32.86 Ratio (12.00-20.00); C Reactive Protein <0.4 mg/dL (0.0-0.8); Calcium 9.8 mg/dL (8.7-10.3); Chloride 108 mmol/L (96-109); Globulin 2.8 g/dL (1.6-3.3); Glucose 89 mg/dL (70-110); Non-African American GFR(CKD) 95.5 (60.0-200.0); Potassium 3.9 mmol/L (3.5-5.5); Sodium 143 mmol/L (135-145); Total Bilirubin 0.3 mg/dL (0.3-1.2); Total Protein 7.4 g/dL (6.2-8.2)
[2020-12-15 22:15] LABS: Basophils # (A) 0.05 X 10*3/uL (0.00-0.10); Basophils % (A) 0.8 %; Eosinophils # (A) 0.13 X 10*3/uL (0.04-0.35); HGB 10.2 g/dL (12.0-15.0); Lymphocytes # (A) 1.48 X 10*3/uL (0.90-5.00); Lymphocytes % (A) 22.4 %; MCH 24.5 pg (27.0-32.0); MCHC 27.6 g/dL (32.0-37.0); MCV 88.9 fL (80.0-97.0); Mean Platelet Volume 11.5 fL (9.5-12.2); Monocytes # (A) 0.54 X 10*3/uL (0.20-1.00); Monocytes % (A) 8.2 %; Neutrophils # (A) 4.38 X 10*3/uL (1.80-7.70); Neutrophils % (A) 66.1 %; RBC 4.16 X 10*6/uL (4.10-5.20); RDW 18.8 % (11.5-14.5); WBC 6.61 X 10*3/uL (4.50-10.00)
[2020-12-15 23:41] LABS: Erythrocyte Sedimentation Rate 48 mm/Hr (0-30)
== END | disposition home or self-care (01) ==
LOC: LABWHC1 13:49
PROVIDERS: ATTEND Internal Medicine Rheumatology
DX: Z51.81 Encounter for therapeutic drug level monitoring (principal); M06.9 Rheumatoid arthritis, unspecified; Z79.899 Other long term (current) drug therapy; E87.6 Hypokalemia
CPT/HCPCS: 36415; 80053; 85025; 85652; 86140

== ENCOUNTER → 2021-04-16 | Outpatient (CLI) | payer MEDICARE, OTHER ==
--- NOTE | 2021-04-17 12:53 | CT ---
EXAMINATION TYPE: CT abdomen w con DATE OF EXAM: 04/16/2021 HISTORY: Abdominal distention and bloating. CT DLP: 1217.9mGycm Automated Exposure Control for Dose Reduction was Utilized. CONTRAST: CT scan of the abdomen is performed with oral and with IV Contrast, patient injected with 80ml mL of Isovue 300. COMPARISON: CT abdomen and pelvis July 18, 2020 FINDINGS: LUNG BASES: Lipomatous hypertrophy of the intra-arterial septum is redemonstrated. Redemonstration of old bilateral rib fractures posteriorly and laterally, correlate clinically. LIVER/GB: Liver remains diffusely low dense consistent with fatty infiltration though less prominent than prior. Stable 1.1 cm in size or hypodense lesion right hepatic dome anterior segment series 3 im age 17 which is more hyperdense on delayed phased images. There is 2.2 cm left lateral lesion axial i mage 13 that shows increased nodular enhancement on delayed phase images stable in size from prior in retrospect. Lesions felt to reflect benign hemangiomas on several prior CTs. Gallbladder surgically absent. PANCREAS: No significant abnormality is seen. SPLEEN: No significant abnormality is seen. ADRENALS: No significant abnormality is seen. KIDNEYS: Persistent small bilateral renal calculi. On current study I once again identified roughly 4 -5 scattered left and 3-4 scattered right sided stones measuring 5 mm or smaller in size. Symmetric c ortical medullary uptake with nonvisualized excretion bilaterally but no hydronephrosis seen bilatera lly. BOWEL: Oral contrast only reaches jejunal loops in the lower abdomen. Stomach poorly distended and th us suboptimally evaluated. No suspicious small or large bowel dilatation. Note is made of persistent abnormal positioning of the ligament of Treitz, this is unchanged from prior studies. Mild wall thic kening of the terminal ileum. No significant surrounding fat stranding seen. LYMPH NODES: No greater than 1cm abdominal lymph nodes are appreciated. OSSEOUS STRUCTURES: Dextroconvex scoliosis centered at L2 level. Stable moderate to severe compressio n type fracture deformity at L1 level. Mild height loss or prominent Schmorl node superior L3 and L4 endplates. Hemangiomas involving T12 and L2 vertebra. Mild to moderate disc space narrowing L4-L5 and L5-S1 levels. 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 Celiac artery is small caliber from origin on coronal images. Correlate cl inically for possible celiac artery compression syndrome. IMPRESSION: 1. No bowel obstruction or intra-abdominal ascites. No significant new or acute finding identified fr om prior studies. Other findings as detailed above.
== END | disposition home or self-care (01) ==
LOC: RADCTMAIN 14:30
PROVIDERS: ATTEND Family Medicine
DX: N20.0 Calculus of kidney (principal); K63.89 Other specified diseases of intestine; N28.9 Disorder of kidney and ureter, unspecified
CPT/HCPCS: 82565; 84520; 74160; 36415; Q9967

== ENCOUNTER 2021-05-16 16:14 | Inpatient (IN) | payer MEDICARE, OTHER ==
--- NOTE | 2021-05-16 16:48 | ED ---
General Adult HPI - General Chief complaint: Extremity Injury, Lower Stated complaint: L ANKLE PAIN Time Seen by Provider: 05/16/21 16:48 Source: patient, family, EMS Mode of arrival: EMS Limitations: no limitations - History of Present Illness Initial comments: Patient presents to the ED by ambulance for evaluation with her at bedside. Patient states that she accidentally stepped on her 's foot last night and twisted her left ankle. Patient denies falling at that time. Patient states that she has had left lateral ankle pain since then. Patient denies any other injury. Patient is also noted to have a fever on arrival to the ED today. Patient admits that she has felt feverish and has had chills today. Patient denies having any other symptoms or complaints. Patient's states that the patient is prone to getting urinary tract infections. Patient denies headache, focal neuro deficit, neck pain or stiffness, sore th roat, cough or cold symptoms, chest pain, dyspnea, palpitations, dizziness, abdominal pain, nausea/vomiting/diarrhea, dysuria/hematuria/urinary frequency/urinary symptoms, open wound/sores, rash, or any other symptoms or complaints. Patient denies taking any pain or antipyretic medication today. P atient states that she is fully vaccinated against Covid. - Related Data Home Medications Medication Instructions Recorded Confirmed metHOTREXate sodium [Methotrexate] 7.5 mg PO WE 04/27/18 07/26/20 ARIPiprazole [Abilify] 20 mg PO HS 07/09/19 07/26/20 FLUoxetine HCL [PROzac] 20 mg PO DAILY 07/09/19 07/26/20 Potassium Chloride ER [K-Dur 20] 20 meq PO BID 07/09/19 07/26/20 Lacosamide [Vimpat] 50 mg PO DAILY 03/31/20 07/26/20 Omeprazole 20 mg PO DAILY 03/31/20 07/26/20 ondansetron HCL [Zofran] 8 mg PO DAILY PRN 03/31/20 07/26/20 Adalimumab [Humira(Cf) Pen] 40 mg SQ Q14D 07/18/20 07/26/20 Folic Acid 1 mg PO DAILY 07/18/20 07/26/20 Previous Rx's Medication Instructions Recorded Acetaminophen Tab [Tylenol Tab] 650 mg PO Q4H PRN #30 tablet 07/31/20 Ibuprofen [Motrin] 600 mg PO Q8HR PRN #15 tab 07/31/20 Cefpodoxime Proxetil [Vantin] 200 mg PO Q12HR #8 tab 08/01/20 bisacodyL [Dulcolax] 5 mg PO DAILY #30 tablet. 08/01/20 Allergies Allergy/AdvReac Type Severity Reaction Status Date / Time No Known Allergies Allergy Verified 05/16/21 16:17 Review of Systems ROS Statement: Those systems with pertinent positive or pertinent negative responses have been documented in the HPI. ROS Other: All systems not noted in ROS Statement are negative. Past Medical History Past Medical History: Diabetes Mellitus, GERD/Reflux, Hypertension, Osteoarthritis (OA), Rheumatoid Arthritis (RA), Vascular Disorder Additional Past Medical History / Comment(s): neuropathy ,Vitiligo, Raynaud's ,peripheral neuropathy. hx cellulitis lt lower leg, pt states hx of ulcers with right BKA.- wears prosthesis., Hx colon polyps., denies current diabetes and htn. History of Any Multi-Drug Resistant Organisms: MRSA Date of last positivie culture/infection: 06/11/12 MDRO Source:: lt axilla Past Surgical History: Appendectomy, Section, Joint Replacement, Orthopedic Surgery, Tonsillectomy, Tubal Ligation Additional Past Surgical History / Comment(s): right shoulder replacement, right leg BK amputation Past Anesthesia/Blood Transfusion Reactions: No Reported Reaction Past Psychological History: Depression Smoking Status: Current every day smoker Past Alcohol Use History: Daily Past Drug Use History: None Reported - Past Family History Mother Family Medical History: No Reported History, Diabetes Mellitus, Hyperlipidemia, Hypertension Father Family Medical History: Diabetes Mellitus, Hypertension Sister(s) Family Medical History: No Reported History Son(s) Family Medical History: No Reported History General Exam Limitations: no limitations General appearance: alert, in no apparent distress Head exam: Present: atraumatic, normocephalic Eye exam: Present: normal appearance, EOMI ENT exam: Present: normal oropharynx, mucous membranes moist Neck exam: Present: other (Trachea is in midline). Absent: tenderness, meningismus Respiratory exam: Present: normal lung sounds bilaterally. Absent: respiratory distress, wheezes, rales, rhonchi, stridor Cardiovascular Exam: Present: normal rhythm, tachycardia, normal heart sounds, other (Normal bilateral radial and left dorsalis pedis pulses) GI/Abdominal exam: Present: soft. Absent: distended, tenderness, guarding Extremities exam: Present: other (Left lateral ankle tenderness; status post right BKA) Back exam: Absent: CVA tenderness (R), CVA tenderness (L) Neurological exam: Present: alert, oriented X3. Absent: motor sensory deficit Psychiatric exam: Present: normal affect, normal mood Skin exam: Present: warm, dry, intact, normal color Course Vital Signs 05/16/21 05/16/21 05/16/21 16:17 17:55 18:27 Temperature 101.3 F H 101.4 F H Pulse Rate 113 H 121 H Respiratory 20 20 Rate Blood Pressure 128/75 111/82 O2 Sat by Pulse 93 L 94 L Oximetry 05/16/21 19:12 Temperature Pulse Rate 115 H Respiratory 20 Rate Blood Pressure 98/53 O2 Sat by Pulse 95 Oximetry - Reevaluation(s) Reevaluation #1: 05/16/21 18:42 Case, H&P, test results and ED management were discussed with Dr. Saldana. She accepts hospital admission. She has no further recommendation at this time. 05/16/21 19:14 Patient denies development of any new symptoms while in the ED. Patient remains alert and breathing comfortably. Patient has been normotensive while in the ED. Patient is aware of her test results, and she agrees with hospital admission at this time. Medical Decision Making - Medical Decision Making Patient's left ankle x-rays are negative and I suspect that her left ankle injury is likely a sprain. Patient's UA is suggestive of UTI, and given the patient's fever and elevated lactic acid level, I suspect that she likely has a UTI with sepsis. Patient's chest x-ray is negative. Patient has been normotensive while in the ED. Blood culture was obtained. Patient was given a dose of IV Rocephin in the ED. Dr. Saldana has accepted hospital admission. - Lab Data Result diagrams: 05/16/21 17:29 05/16/21 17:29 Lab Results 05/16/21 05/16/21 05/16/21 Range/Units 17:29 17:29 17:29 WBC 10.3 (3.8-10.6) k/uL RBC 3.60 L (3.80-5.40) m/uL Hgb 11.1 L (11.4-16.0) gm/dL Hct 33.6 L (34.0-46.0) % MCV 93.2 (80.0-100.0) fL MCH 30.7 (25.0-35.0) pg MCHC 33.0 (31.0-37.0) g/dL RDW 21.6 H (11.5-15.5) % Plt Count 173 (150-450) k/uL MPV 8.5 Neutrophils % 89 % Lymphocytes % 5 % Monocytes % 3 % Eosinophils % 1 % Basophils % 0 % Neutrophils # 9.1 H (1.3-7.7) k/uL Lymphocytes # 0.6 L (1.0-4.8) k/uL Monocytes # 0.3 (0-1.0) k/uL Eosinophils # 0.1 (0-0.7) k/uL Basophils # 0.0 (0-0.2) k/uL Hypochromasia Slight Anisocytosis Moderate Macrocytosis Slight Sodium 137 (137-145) mmol/L Potassium 3.3 L (3.5-5.1) mmol/L Chloride 103 (98-107) mmol/L Carbon Dioxide 26 (22-30) mmol/L Anion Gap 8 mmol/L BUN 16 (7-17) mg/dL Creatinine 0.97 (0.52-1.04) mg/dL Est GFR (CKD-EPI)AfAm 75 (>60 ml/min/1.73 sqM) Est GFR (CKD-EPI)NonAf 65 (>60 ml/min/1.73 sqM) Glucose 143 H (74-99) mg/dL Plasma Lactic Acid Al (0.7-2.0) mmol/L Calcium 9.0 (8.4-10.2) mg/dL Total Bilirubin 1.6 H (0.2-1.3) mg/dL AST 30 (14-36) U/L ALT 24 (4-34) U/L Alkaline Phosphatase 223 H (38-126) U/L Total Protein 7.2 (6.3-8.2) g/dL Albumin 4.1 (3.5-5.0) g/dL Urine Color Yellow Urine Appearance Cloudy H (Clear) Urine pH 6.5 (5.0-8.0) Ur Specific [place] 1.013 (1.001-1.035) Urine Protein 1+ H (Negative) Urine Glucose (UA) Negative (Negative) Urine Ketones Negative (Negative) Urine Blood Negative (Negative) Urine Nitrite Negative (Negative) Urine Bilirubin Negative (Negative) Urine Urobilinogen 2.0 (<2.0) mg/dL Ur Leukocyte Esterase Large H (Negative) Urine RBC 2 (0-5) /hpf Urine WBC 46 H (0-5) /hpf Ur Squamous Epith Cells 2 (0-4) /hpf Urine Bacteria Rare H (None) /hpf Coronavirus (PCR) (Not Detectd) 05/16/21 05/16/21 Range/Units 17:29 17:29 WBC (3.8-10.6) k/uL RBC (3.80-5.40) m/uL Hgb (11.4-16.0) gm/dL Hct (34.0-46.0) % MCV (80.0-100.0) fL MCH (25.0-35.0) pg MCHC (31.0-37.0) g/dL RDW (11.5-15.5) % Plt Count (150-450) k/uL MPV Neutrophils % % Lymphocytes % % Monocytes % % Eosinophils % % Basophils % % Neutrophils # (1.3-7.7) k/uL Lymphocytes # (1.0-4.8) k/uL Monocytes # (0-1.0) k/uL Eosinophils # (0-0.7) k/uL Basophils # (0-0.2) k/uL Hypochromasia Anisocytosis Macrocytosis Sodium (137-145) mmol/L Potassium (3.5-5.1) mmol/L Chloride (98-107) mmol/L Carbon Dioxide (22-30) mmol/L Anion Gap mmol/L BUN (7-17) mg/dL Creatinine (0.52-1.04) mg/dL Est GFR (CKD-EPI)AfAm (>60 ml/min/1.73 sqM) Est GFR (CKD-EPI)NonAf (>60 ml/min/1.73 sqM) Glucose (74-99) mg/dL Plasma Lactic Acid Al 3.3 H* (0.7-2.0) mmol/L Calcium (8.4-10.2) mg/dL Total Bilirubin (0.2-1.3) mg/dL AST (14-36) U/L ALT (4-34) U/L Alkaline Phosphatase (38-126) U/L Total Protein (6.3-8.2) g/dL Albumin (3.5-5.0) g/dL Urine Color Urine Appearance (Clear) Urine pH (5.0-8.0) Ur Specific [place] (1.001-1.035) Urine Protein (Negative) Urine Glucose (UA) (Negative) Urine Ketones (Negative) Urine Blood (Negative) Urine Nitrite (Negative) Urine Bilirubin (Negative) Urine Urobilinogen (<2.0) mg/dL Ur Leukocyte Esterase (Negative) Urine RBC (0-5) /hpf Urine WBC (0-5) /hpf Ur Squamous Epith Cells (0-4) /hpf Urine Bacteria (None) /hpf Coronavirus (PCR) Not Detected (Not Detectd) - Radiology Data Radiology results: report reviewed (Chest x-ray: No active cardiopulmonary disease. Normal heart. No adverse change.; Left ankle x-rays: Soft tissue swelling, no fracture seen) Disposition Clinical Impression: Acute febrile illness, UTI (urinary tract infection), Sepsis Disposition: ADMITTED IP TO THIS HOSP Condition: Stable Is patient prescribed a controlled substance at d/c from ED?: No Referrals: Noa Mae MD [Primary Care Provider] - 1-2 days Time of Disposition: 18:42
[2021-05-16] MEDS ORDERED: SODIUM CHLORIDE 0.9% 500 ML 500 ML IV STA (17:00)
[2021-05-16] MEDS ORDERED: ACETAMINOPHEN TAB 500 MG TAB PO STA (17:00)
--- NOTE | 2021-05-16 17:23 | XR ---
EXAMINATION TYPE: XR chest 1V portable DATE OF EXAM: 05/16/2021 COMPARISON: 07/26/2020 HISTORY: Fever TECHNIQUE: FINDINGS: There is no heart failure nor confluent pneumonic infiltrate. There are old bilateral rib f ractures. There are no hilar masses. There is right shoulder prosthesis. IMPRESSION: No active cardiopulmonary disease. Normal heart. No adverse change.
--- NOTE | 2021-05-16 17:30 | XR ---
EXAMINATION TYPE: XR ankle complete LT DATE OF EXAM: 05/16/2021 COMPARISON: NONE HISTORY: Pain TECHNIQUE: 3 views FINDINGS: There is soft tissue swelling over the lateral malleolus. Ankle mortise is anatomic. There is probably ankle joint effusion. I see no fracture nor dislocation. There is plantar and Achilles ca lcaneal spurring. There is osteopenia. IMPRESSION: Soft tissue swelling. No fracture seen.
[2021-05-16 17:50] LABS: Anisocytosis Moderate; Basophils % (A) 0 %; Eosinophils # (A) 0.1 k/uL (0-0.7); Eosinophils % (A) 1 %; HCT 33.6 % (34.0-46.0); HGB 11.1 gm/dL (11.4-16.0); Hypochromasia Slight; Lymphocytes # (A) 0.6 k/uL (1.0-4.8); Lymphocytes % (A) 5 %; MCH 30.7 pg (25.0-35.0); MCV 93.2 fL (80.0-100.0); Macrocytosis Slight; Mean Platelet Volume 8.5; Monocytes # (A) 0.3 k/uL (0-1.0); Monocytes % (A) 3 %; Neutrophils # (A) 9.1 k/uL (1.3-7.7); Neutrophils % (A) 89 %; Platelet Count 173 k/uL (150-450); RDW 21.6 % (11.5-15.5); WBC 10.3 k/uL (3.8-10.6)
[2021-05-16 18:03] LABS: Albumin 4.1 g/dL (3.5-5.0); Potassium 3.3 mmol/L (3.5-5.1); Total Bilirubin 1.6 mg/dL (0.2-1.3); Total Protein 7.2 g/dL (6.3-8.2)
[2021-05-16 18:04] LABS: Appearance,Urine Cloudy (Clear); Bacteria,Urine Rare /hpf; Bilirubin,Urine Negative (Negative); Blood,Urine Negative (Negative); Color,Urine Yellow; Glucose,Urine (UA) Negative (Negative); Ketones,Urine Negative (Negative); Leukocyte Esterase,Urine Large (Negative); Nitrite,Urine Negative (Negative); PH, Urine 6.5 (5.0-8.0); Protein,Urine 1+ (Negative); RBC,Urine 2 /hpf (0-5); Specific Gravity,Urine 1.013 (1.001-1.035); Squamous Epithelial Cell,Urine 2 /hpf (0-4); WBC,Urine 46 /hpf (0-5)
[2021-05-16] MEDS ORDERED: IBUPROFEN 600 MG TAB PO STA (18:36)
[2021-05-16] MEDS ORDERED: SODIUM CHLORIDE 0.9% 1,000 ML IV STA ×2 (19:28)
[2021-05-16] MEDS ORDERED: ACETAMINOPHEN TAB 325 MG TAB PO PRN (19:29)
[2021-05-16 21:38] LABS: Glucose,Whole Blood 152 mg/dL (75-99)
[2021-05-16] MEDS: INSULIN ASPART (NovoLOG) 100 UNIT/ML VIAL SQ SCH (22:34)
[2021-05-17] MEDS: POTASSIUM CHLORIDE 10 MEQ in WATER FOR INJECTION 1 100ML.BAG IVPB SCH ×3 (03:03→05:24)
--- NOTE | 2021-05-17 04:52 | P.HPIM ---
History of Present Illness H&P Date: 05/16/21 Chief Complaint: Fevers and chills 60-year-old female with rheumatoid arthritis, chronic anemia, neuropathy, diabetes mellitus however she denies Patient comes in due to not feeling well for couple days she reports even feeling clumsy she stepped on her foot and he stepped on her foot which resulted in some increased swelling in her left foot limiting her mobility she has right BKA and uses a prosthesis. She noticed some increased swelling in his left ankle. On top that she's been having some fevers and chills and some dysuria for which she decided come the hospital for evaluation Most recent hospitalization was back in July 2020 when she was admitted for UTI and acute cholecystitis. However other than that she denies any recent hospitalizations he denies any chest pain trouble breathing upper respiratory infection symptoms denies any nausea or vomiting. Blood work in the ED showed hypokalemia chronic anemia lactic acidosis Also showed some slightly elevated liver enzymes X-rays showed soft tissue swelling in the left ankle no fractures Chest x-ray was negative Review of Systems Pertinent positives as noted in HPI. All other systems were reviewed and are negative Past Medical History Past Medical History: Diabetes Mellitus, GERD/Reflux, Hypertension, Osteoarthrit is (OA), Rheumatoid Arthritis (RA), Vascular Disorder Additional Past Medical History / Comment(s): neuropathy ,Vitiligo, Raynaud's ,peripheral neuropathy. hx cellulitis lt lower leg, pt states hx of ulcers with right BKA.- wears prosthesis., Hx colon polyps., denies current diabetes and htn. History of Any Multi-Drug Resistant Organisms: MRSA Date of last positivie culture/infection: 06/11/12 MDRO Source:: lt axilla Past Surgical History: Appendectomy, Section, Joint Replacement, Orthopedic Surgery, Tonsillectomy, Tubal Ligation Additional Past Surgical History / Comment(s): right shoulder replacement, right leg BK amputation Past Anesthesia/Blood Transfusion Reactions: No Reported Reaction Past Psychological History: Depression Smoking Status: Current every day smoker Past Alcohol Use History: Daily Past Drug Use History: None Reported - Past Family History Mother Family Medical History: No Reported History, Diabetes Mellitus, Hyperlipidemia, Hypertension Father Family Medical History: Diabetes Mellitus, Hypertension Sister(s) Family Medical History: No Reported History Son(s) Family Medical History: No Reported History Medications and Allergies Home Medications Medication Instructions Recorded Confirmed Type metHOTREXate sodium [Methotrexate] 2.5 mg PO WE 04/27/18 05/16/21 History ARIPiprazole [Abilify] 20 mg PO HS 07/09/19 05/16/21 History Omeprazole 20 mg PO DAILY 03/31/20 05/16/21 History Folic Acid 1 mg PO DAILY 07/18/20 05/16/21 History Acetaminophen Tab [Tylenol Tab] 650 mg PO Q4H PRN #30 tablet 07/31/20 05/16/21 Rx DULoxetine HCL [Cymbalta] 60 mg PO DAILY 05/16/21 05/16/21 History Pregabalin [Lyrica] 300 mg PO BID 05/16/21 05/16/21 History Tofacitinib Citrate [Xeljanz Xr] 11 mg PO DAILY 05/16/21 05/16/21 History Allergies Allergy/AdvReac Type Severity Reaction Status Date / Time No Known Allergies Allergy Verified 05/16/21 19:47 Physical Exam Vitals: Vital Signs Temp Pulse Resp BP Pulse Ox 05/16/21 19:12 115 H 20 98/53 95 05/16/21 18:27 101.4 F H 05/16/21 17:55 121 H 20 111/82 94 L 05/16/21 16:17 101.3 F H 113 H 20 128/75 93 L Intake and Output 05/16/21 05/16/21 05/16/21 06:59 14:59 22:59 Other: Weight 81.647 kg Constitutional: No acute distress, conversant, pleasant Eyes: Anicteric sclerae, moist conjunctiva, Pupils equal round reactive to light ENMT: NC/AT Oropharynx clear, no erythema, or exudates Neck: Supple, FROM, no masses, or JVD No carotid bruits No thyromegaly Lungs: Clear to auscultation Clear to percussion Normal respiratory effort, no accessory muscle use Cardiovascular: Heart regular in rate and rhythm, No murmurs, gallops, or rubs No peripheral edema Abdominal: Soft Abdomen is distended moderately, no tenderness there is visible dilated abdominal wall veins, no guarding, rebound or rigidity Abdomen moving with respiration Normoactive bowel sounds No hepatomegaly, No splenomegaly No palpable mass No abdominal wall hernia noted Skin: Normal temperature, tone, texture, turgor No induration No subcutaneous nodules No rash, lesions No ulcers Extremities: Right BKA No digital cyanosis No clubbing Pedal pulses intact and positive on the left foot Radial pulses intact and symmetrical No calf tenderness Psychiatric: Alert and oriented to person, place and time Appropriate affect fair judgement Neuro Muscles Strength 5/5 in all 4 extremities Sensation to light touch grossly present throughout Cranial nerves II-XII grossly intact No focal sensory deficits Lymphatics: no palpable cervical or supraclavicular , or inguinal lymph nodes Results CBC & Chem 7: 05/16/21 17:29 05/16/21 17:29 Labs: Abnormal Lab Results - Last 24 Hours (Table) 05/16/21 05/16/21 05/16/21 Range/Units 17:29 17:29 17:29 RBC 3.60 L (3.80-5.40) m/uL Hgb 11.1 L (11.4-16.0) gm/dL Hct 33.6 L (34.0-46.0) % RDW 21.6 H (11.5-15.5) % Neutrophils # 9.1 H (1.3-7.7) k/uL Lymphocytes # 0.6 L (1.0-4.8) k/uL Potassium 3.3 L (3.5-5.1) mmol/L Glucose 143 H (74-99) mg/dL Plasma Lactic Acid Al (0.7-2.0) mmol/L Total Bilirubin 1.6 H (0.2-1.3) mg/dL Alkaline Phosphatase 223 H (38-126) U/L Urine Appearance Cloudy H (Clear) Urine Protein 1+ H (Negative) Ur Leukocyte Esterase Large H (Negative) Urine WBC 46 H (0-5) /hpf Urine Bacteria Rare H (None) /hpf 05/16/21 Range/Units 17:29 RBC (3.80-5.40) m/uL Hgb (11.4-16.0) gm/dL Hct (34.0-46.0) % RDW (11.5-15.5) % Neutrophils # (1.3-7.7) k/uL Lymphocytes # (1.0-4.8) k/uL Potassium (3.5-5.1) mmol/L Glucose (74-99) mg/dL Plasma Lactic Acid Al 3.3 H* (0.7-2.0) mmol/L Total Bilirubin (0.2-1.3) mg/dL Alkaline Phosphatase (38-126) U/L Urine Appearance (Clear) Urine Protein (Negative) Ur Leukocyte Esterase (Negative) Urine WBC (0-5) /hpf Urine Bacteria (None) /hpf Assessment and Plan Assessment: Suspected sepsis secondary to UTI Lactic acidosis Hypokalemia Chronic anemia Rheumatoid arthritis Diabetes mellitus however patient denies Peripheral neuropathy with right BKA Plan Aggressive IV fluid hydration Follow-up cultures Lactic acidosis follow-up levels Rocephin IV daily Replace potassium and follow up level Check magnesium Resume home medications Tylenol for fever Insulin sliding scale Check A1c CODE STATUS: Full code DVT prophylaxis: Lovenox Discussed with: Patient, ER, RN Anticipated length of stay more than [address]: Home A total of 75 minutes was spent on the care of this complex patient more than 50% of the time was spent in counseling and care coordination.
[2021-05-17] MEDS: INSULIN ASPART (NovoLOG) 100 UNIT/ML VIAL SQ SCH ×4 (07:35→20:33)
[2021-05-17] MEDS: PREGABALIN 100 MG CAP PO SCH ×2 (07:36→20:24)
[2021-05-17] MEDS: PANTOPRAZOLE 40 MG TABLET PO SCH (07:37)
[2021-05-17] MEDS: DULoxetine HCL 60 MG CAPSULE.DR PO SCH (07:37)
[2021-05-17 07:38] LABS: Glucose,Whole Blood 119 mg/dL (75-99)
[2021-05-17 09:44] LABS: ALT 20 U/L (4-34); AST 29 U/L (14-36); African American GFR (CKD) 75 (>60 ml/min/1.73 sqM); Albumin 3.3 g/dL (3.5-5.0); Albumin/Globulin Ratio 1.1; Alkaline Phosphatase 175 U/L (38-126); Anion Gap 8 mmol/L; Blood Urea Nitrogen 20 mg/dL (7-17); Calcium 8.4 mg/dL (8.4-10.2); Carbon Dioxide 22 mmol/L (22-30); Chloride 109 mmol/L (98-107); Globulin 2.9 g/dL; Glucose 154 mg/dL (74-99); Non-African American GFR(CKD) 65 (>60 ml/min/1.73 sqM); Potassium 3.5 mmol/L (3.5-5.1); Sodium 139 mmol/L (137-145); Total Protein 6.2 g/dL (6.3-8.2)
[2021-05-17 09:57] LABS: Magnesium 2.1 mg/dL (1.6-2.3)
--- NOTE | 2021-05-17 10:09 | P.PN ---
Subjective Progress Note Date: 05/17/21 Hospital course: Patient is a 60-year-old female with a past medical history of neuropathy, rheumatoid arthritis, chronic anemia, and severe peripheral vascular disease resulting in a right BKA. Patient presented to the emergency department with a chief complaint of fever, chills, fatigue, and injury to left ankle. In the emergency department patient was seen and fully evaluated. She was found to have signs of sepsis in the emergency department with temp of 101.4F, heart rate 121, an initial lactate of 3.3. Urinalysis revealing UTI as it was positive for protein, leukocytes and 46 WBCs. Patient received sepsis bolus followed by maintenance fluids and started on IV antibiotics with Rocephin. X-ray of her left ankle completed and revealed soft tissue swelling over the lateral malleolus with probable ankle joint effusion, no acute fractures or dislocations reported. Chest x-ray was negative for acute cardiopulmonary process. Patient admitted under our services in consultation has been placed for PT/OT and it training specialist. Physical exam: Patient was seen and fully evaluated at the bedside. She reports left lateral ankle discomfort otherwise denies having any complaints at this time. Patient denies having headache, lightheadedness, dizziness, chest pain, palpitations, shortness of breath, abdominal pain, nausea, vomiting, or experiencing any changes in her difficulties with urinary or bowel function. General: non toxic, no distress, appears older than her biological age Derm: warm, dry. Venous discoloration to left lower extremity. Moderate swelling and bruising to left lateral ankle. Left pedal pulse palpated and mar ked with pen by placing X over site. Head: atraumatic, normocephalic, symmetric Eyes: EOMI, no lid lag, anicteric sclera Mouth: no lip lesion, mucus membranes moist Cardiovascular: S1S2 reg, no murmur, positive posterior tibial pulse bilaterally. Lungs: CTA bilateral, no rhonchi, no rales , no accessory muscle use Abdominal: soft, nontender to palpation, no guarding, no appreciable organomegaly Ext: no gross muscle atrophy, no edema, no contractures Neuro: CN II-XI grossly intact, no focal neuro deficits Psych: Alert, oriented, appropriate affect Plan of care: Sepsis secondary to UTI -Sepsis as evidenced by temp 101.4F, heart rate 121, and Initial lactate 3.3 with repeat lactate of 1.4. -Urinalysis positive for protein, leukocytes, and 46 WBCs. -Urine culture obtained and currently pending results. -Continue IV antibiotics with Rocephin pending culture and sensitivity results. Left ankle injury - X-ray left ankle revealing soft tissue swelling over the lateral malleolus with probable ankle joint effusion, no acute fractures or dislocations reported. -Safe and supportive care. -Symptomatic care and pain management. -Fall precautions -PT/OT consult. -Consult orthopedic surgery, Dr. Leary. Lactic acidosis, resolved Hypokalemia, resolved Hyperbilirubinemia, resolved Chronic anemia -Hemoglobin 11.1, at baseline. -We will continue to monitor with repeat a.m. labs. Peripheral vascular disease -Patient has long-standing history of severe peripheral vascular disease resulting in right BKA. -Fall precautions and assistance to be provided as needed. -Encourage use of compression stockings/BAUDILIO hose Rheumatoid arthritis -Safe and supportive care -Symptomatic care and pain management as needed. Neuropathy -Continue daily medication regimen with your current 300 mg twice daily. CODE STATUS: Full code DVT prophylaxis: Lovenox Discussed with: Patient and RN Anticipated discharge date: Clinical course to determine Anticipated discharge place: Home with homecare vs SNF A total of 45 minutes was spent on the care of this complex patient more than 50% of the time was spent in counseling and care coordination. Objective - Vital Signs Vital signs: Vital Signs Temp 97.6 F 05/17/21 08:00 Pulse 83 05/17/21 08:00 Resp 18 05/17/21 08:00 BP 104/69 05/17/21 08:00 Pulse Ox 100 05/17/21 08:00 Intake & Output 05/16/21 05/17/21 05/17/21 18:59 06:59 18:59 Intake Total 200 Balance 200 Weight 81.647 kg 81.647 kg Intake: Oral 200 Other: Voiding Method Diaper External Catheter Incontinent # Voids 2 - Labs CBC & Chem 7: 05/16/21 17:29 05/17/21 08:20 Labs: Abnormal Lab Results - Last 24 Hours (Table) 05/16/21 05/16/21 05/16/21 Range/Units 17:29 17:29 17:29 RBC 3.60 L (3.80-5.40) m/uL Hgb 11.1 L (11.4-16.0) gm/dL Hct 33.6 L (34.0-46.0) % RDW 21.6 H (11.5-15.5) % Neutrophils # 9.1 H (1.3-7.7) k/uL Lymphocytes # 0.6 L (1.0-4.8) k/uL Potassium 3.3 L (3.5-5.1) mmol/L Chloride (98-107) mmol/L BUN (7-17) mg/dL Glucose 143 H (74-99) mg/dL POC Glucose (mg/dL) (75-99) mg/dL Plasma Lactic Acid Al (0.7-2.0) mmol/L Total Bilirubin 1.6 H (0.2-1.3) mg/dL Alkaline Phosphatase 223 H (38-126) U/L Total Protein (6.3-8.2) g/dL Albumin (3.5-5.0) g/dL Urine Appearance Cloudy H (Clear) Urine Protein 1+ H (Negative) Ur Leukocyte Esterase Large H (Negative) Urine WBC 46 H (0-5) /hpf Urine Bacteria Rare H (None) /hpf 05/16/21 05/16/21 05/17/21 Range/Units 17:29 21:35 07:35 RBC (3.80-5.40) m/uL Hgb (11.4-16.0) gm/dL Hct (34.0-46.0) % RDW (11.5-15.5) % Neutrophils # (1.3-7.7) k/uL Lymphocytes # (1.0-4.8) k/uL Potassium (3.5-5.1) mmol/L Chloride (98-107) mmol/L BUN (7-17) mg/dL Glucose (74-99) mg/dL POC Glucose (mg/dL) 152 H 119 H (75-99) mg/dL Plasma Lactic Acid Al 3.3 H* (0.7-2.0) mmol/L Total Bilirubin (0.2-1.3) mg/dL Alkaline Phosphatase (38-126) U/L Total Protein (6.3-8.2) g/dL Albumin (3.5-5.0) g/dL Urine Appearance (Clear) Urine Protein (Negative) Ur Leukocyte Esterase (Negative) Urine WBC (0-5) /hpf Urine Bacteria (None) /hpf 05/17/21 Range/Units 08:20 RBC (3.80-5.40) m/uL Hgb (11.4-16.0) gm/dL Hct (34.0-46.0) % RDW (11.5-15.5) % Neutrophils # (1.3-7.7) k/uL Lymphocytes # (1.0-4.8) k/uL Potassium (3.5-5.1) mmol/L Chloride 109 H (98-107) mmol/L BUN 20 H (7-17) mg/dL Glucose 154 H (74-99) mg/dL POC Glucose (mg/dL) (75-99) mg/dL Plasma Lactic Acid Al (0.7-2.0) mmol/L Total Bilirubin (0.2-1.3) mg/dL Alkaline Phosphatase 175 H (38-126) U/L Total Protein 6.2 L (6.3-8.2) g/dL Albumin 3.3 L (3.5-5.0) g/dL Urine Appearance (Clear) Urine Protein (Negative) Ur Leukocyte Esterase (Negative) Urine WBC (0-5) /hpf Urine Bacteria (None) /hpf Microbiology - Last 24 Hours (Table) 05/16/21 17:29 Urine Culture - Preliminary Urine,Voided
[2021-05-17 11:40] LABS: Anisocytosis Moderate; HCT 31.6 % (34.0-46.0); HGB 9.7 gm/dL (11.4-16.0); Hypochromasia Marked; MCH 29.9 pg (25.0-35.0); MCHC 30.8 g/dL (31.0-37.0); Macrocytosis Moderate; Mean Platelet Volume 11.1; RBC 3.26 m/uL (3.80-5.40); RDW 22.2 % (11.5-15.5); WBC 6.1 k/uL (3.8-10.6)
[2021-05-17 11:44] LABS: Glucose,Whole Blood 138 mg/dL (75-99)
--- NOTE | 2021-05-17 12:57 | P.CNOR ---
History of Present Illness - [facility] Consult date: 05/17/21 Consult reason: fracture History of present illness: 60 yo female sustained a twising injury to her LLE at home when she stepped on her husbands foot and twisted it causing her to almost fall. Her caught her. She has a prosthetic RLE due to amputation BKA. She has hx of RA. She c/o pain in her L ankle. She states pain when she tries to walk on it and pain when she moves it. No crepitance felt. She states limited feeling due to her neuropathy. She denies any other symptoms. States no LOC or BHT with the fall. Review of Systems 14 pt ROS completed and as stated in HPI. All others reviewed negative. Constitutional: Reports as per HPI Past Medical History Past Medical History: Diabetes Mellitus, GERD/Reflux, Hypertension, Osteoarthritis (OA), Rheumatoid Arthritis (RA), Vascular Disorder Additional Past Medical History / Comment(s): neuropathy ,Vitiligo, Raynaud's ,peripheral neuropathy. hx cellulitis lt lower leg, pt states hx of ulcers with right BKA.- wears prosthesis., Hx colon polyps., denies current diabetes and htn. History of Any Multi-Drug Resistant Organisms: MRSA Year Discovered:: 06/11/12 MDRO Source:: lt axilla Past Surgical History: Appendectomy, Section, Joint Replacement, Orthopedic Surgery, Tonsillectomy, Tubal Ligation Additional Past Surgical History / Comment(s): right shoulder replacement, right leg BK amputation Past Anesthesia/Blood Transfusion Reactions: No Reported Reaction Past Psychological History: Depression Smoking Status: Current every day smoker Past Alcohol Use History: Daily Past Drug Use History: None Reported - Past Family History Mother Family Medical History: No Reported History, Diabetes Mellitus, Hyperlipidemia, Hypertension Father Family Medical History: Diabetes Mellitus, Hypertension Sister(s) Family Medical History: No Reported History Son(s) Family Medical History: No Reported History Medications and Allergies Home Medications Medication Instructions Recorded Confirmed Type metHOTREXate sodium [Methotrexate] 2.5 mg PO WE 04/27/18 05/16/21 History ARIPiprazole [Abilify] 20 mg PO HS 07/09/19 05/16/21 History Omeprazole 20 mg PO DAILY 03/31/20 05/16/21 History Folic Acid 1 mg PO DAILY 07/18/20 05/16/21 History Acetaminophen Tab [Tylenol Tab] 650 mg PO Q4H PRN #30 tablet 07/31/20 05/16/21 Rx DULoxetine HCL [Cymbalta] 60 mg PO DAILY 05/16/21 05/16/21 History Pregabalin [Lyrica] 300 mg PO BID 05/16/21 05/16/21 History Tofacitinib Citrate [Xeljanz Xr] 11 mg PO DAILY 05/16/21 05/16/21 History Allergies Allergy/AdvReac Type Severity Reaction Status Date / Time No Known Allergies Allergy Verified 05/16/21 19:47 Physical Examination Osteopathic Statement: *. No significant issues noted on an osteopathic structural exam other than those noted in the History and Physical/Consult. Orthopedic Exam AOX3 NAD LLE: Ecchymosis about the lateral ankle on the left. There is pain over the ATFL and the lateral distal fubula. No bony crepitance felt. There is somewhat unstable inversion test and talar tilt test. There is unstable Anterior drawr. There is stable posterior drawr. SILT L2-S1 except for the S1-2 distribution due to current and chronic neuropathy. No plantar ulcers identified. 2/4 DP/PT pulses Compartments soft and compressive <2 se cap refill all toes. Moves all toes. Able to DF/PF with good strength although does cause pain. EHL and FHL 5/5. KF/KE 4+/5 secondary to her medical state on the L. RLE shows BKA. Stump intact. No issues. Able to flex and extend knee without issues. Results Left ankle xrays show soft tissue swelling without evidence of fracture of dislocation. No subluxation noted. NO lateral talar shift. Hind foot visualized as well as forefoot visualized appear intact without fracture. MOrtise is congruent. - Labs Labs: Abnormal Lab Results - Last 24 Hours (Table) 05/16/21 05/16/21 05/16/21 Range/Units 17:29 17:29 17:29 RBC 3.60 L (3.80-5.40) m/uL Hgb 11.1 L (11.4-16.0) gm/dL Hct 33.6 L (34.0-46.0) % RDW 21.6 H (11.5-15.5) % Neutrophils # 9.1 H (1.3-7.7) k/uL Lymphocytes # 0.6 L (1.0-4.8) k/uL Potassium 3.3 L (3.5-5.1) mmol/L Chloride (98-107) mmol/L BUN (7-17) mg/dL Glucose 143 H (74-99) mg/dL POC Glucose (mg/dL) (75-99) mg/dL Plasma Lactic Acid Al (0.7-2.0) mmol/L Total Bilirubin 1.6 H (0.2-1.3) mg/dL Alkaline Phosphatase 223 H (38-126) U/L Total Protein (6.3-8.2) g/dL Albumin (3.5-5.0) g/dL Urine Appearance Cloudy H (Clear) Urine Protein 1+ H (Negative) Ur Leukocyte Esterase Large H (Negative) Urine WBC 46 H (0-5) /hpf Urine Bacteria Rare H (None) /hpf 05/16/21 05/16/21 05/17/21 Range/Units 17:29 21:35 07:35 RBC (3.80-5.40) m/uL Hgb (11.4-16.0) gm/dL Hct (34.0-46.0) % RDW (11.5-15.5) % Neutrophils # (1.3-7.7) k/uL Lymphocytes # (1.0-4.8) k/uL Potassium (3.5-5.1) mmol/L Chloride (98-107) mmol/L BUN (7-17) mg/dL Glucose (74-99) mg/dL POC Glucose (mg/dL) 152 H 119 H (75-99) mg/dL Plasma Lactic Acid Al 3.3 H* (0.7-2.0) mmol/L Total Bilirubin (0.2-1.3) mg/dL Alkaline Phosphatase (38-126) U/L Total Protein (6.3-8.2) g/dL Albumin (3.5-5.0) g/dL Urine Appearance (Clear) Urine Protein (Negative) Ur Leukocyte Esterase (Negative) Urine WBC (0-5) /hpf Urine Bacteria (None) /hpf 05/17/21 05/17/21 Range/Units 08:20 11:42 RBC (3.80-5.40) m/uL Hgb (11.4-16.0) gm/dL Hct (34.0-46.0) % RDW (11.5-15.5) % Neutrophils # (1.3-7.7) k/uL Lymphocytes # (1.0-4.8) k/uL Potassium (3.5-5.1) mmol/L Chloride 109 H (98-107) mmol/L BUN 20 H (7-17) mg/dL Glucose 154 H (74-99) mg/dL POC Glucose (mg/dL) 138 H (75-99) mg/dL Plasma Lactic Acid Al (0.7-2.0) mmol/L Total Bilirubin (0.2-1.3) mg/dL Alkaline Phosphatase 175 H (38-126) U/L Total Protein 6.2 L (6.3-8.2) g/dL Albumin 3.3 L (3.5-5.0) g/dL Urine Appearance (Clear) Urine Protein (Negative) Ur Leukocyte Esterase (Negative) Urine WBC (0-5) /hpf Urine Bacteria (None) /hpf Microbiology - Last 24 Hours (Table) 05/16/21 17:29 Urine Culture - Preliminary Urine,Voided H & H 05/16/21 Range/Units 17:29 Hgb 11.1 L (11.4-16.0) gm/dL Hct 33.6 L (34.0-46.0) % Result Diagrams: 05/16/21 17:29 05/17/21 08:20 Assessment and Plan Assessment: 60 yo female L ankle sprain with ligamental involvement and some instability Grade II. Plan: -Appreciate consult -Pain control as needed -Obtain fracture boot for LLE -Wear boot when up and about. WBAT in boot. May remove boot when in bed or resting. -Ice, rest elevation for pain and swelling control -Follow up in office in 2 weeks for reevaluation.
[2021-05-17 14:05] LABS: Eosinophils # (M) 0.06 k/uL (0-0.7); Lymphocytes # (M) 0.73 k/uL (1.0-4.8); Metamyelocytes # (M) 0.06 k/uL (0); Metamyelocytes % 1 %; Monocytes # (M) 0.43 k/uL (0-1.0); Myelocytes # (M) 0.06 k/uL (0); Myelocytes % 1 %; Neutrophils # (M) 4.88 k/uL (1.3-7.7); Neutrophils % (M) 80 %; Nucleated Red Blood Cells 0 /100 WBC (0-0); Total Cells Counted 200
[2021-05-17 14:09] LABS: Platelet Count 102 k/uL (150-450)
[2021-05-17 16:29] LABS: Glucose,Whole Blood 139 mg/dL (75-99)
[2021-05-17] MEDS ORDERED: DILTIAZEM ORAL 60 MG TAB PO STA (18:15)
[2021-05-17 20:22] LABS: Glucose,Whole Blood 193 mg/dL (75-99)
[2021-05-17] MEDS: DILTIAZEM ORAL 30 MG TAB PO SCH (20:24)
[2021-05-18 07:10] LABS: Glucose,Whole Blood 189 mg/dL (75-99)
[2021-05-18] MEDS: INSULIN ASPART (NovoLOG) 100 UNIT/ML VIAL SQ SCH ×4 (07:29→21:18)
[2021-05-18] MEDS: PREGABALIN 100 MG CAP PO SCH ×2 (07:30→21:19)
[2021-05-18] MEDS: DULoxetine HCL 60 MG CAPSULE.DR PO SCH (07:30)
[2021-05-18] MEDS: PANTOPRAZOLE 40 MG TABLET PO SCH (07:30)
[2021-05-18] MEDS: DILTIAZEM ORAL 30 MG TAB PO SCH (07:30)
--- NOTE | 2021-05-18 08:18 | P.PN ---
Subjective Progress Note Date: 05/18/21 Hospital course: Patient is a 60-year-old female with a past medical history of neuropathy, rheumatoid arthritis, chronic anemia, and severe peripheral vascular disease resulting in a right BKA. Patient presented to the emergency department with a chief complaint of fever, chills, fatigue, and injury to left ankle. In the emergency department patient was seen and fully evaluated. She was found to have signs of sepsis in the emergency department with temp of 101.4F, heart rate 121, an initial lactate of 3.3. Urinalysis revealing UTI as it was positive for protein, leukocytes and 46 WBCs. Patient received sepsis bolus followed by maintenance fluids and started on IV antibiotics with Rocephin. X-ray of her left ankle completed and revealed soft tissue swelling over the lateral malleolus with probable ankle joint effusion, no acute fractures or dislocations reported. Chest x-ray was negative for acute cardiopulmonary process. Patient admitted under our services in consultation has been placed for PT/OT and social media content specialist. Physical exam: Patient was seen and fully evaluated at the bedside. She reports left lateral ankle discomfort otherwise denies having any complaints at this time. Patient denies having headache, lightheadedness, dizziness, chest pain, palpitations, shortness of breath, abdominal pain, nausea, vomiting, or experiencing any changes in her difficulties with urinary or bowel function. General: non toxic, no distress, appears older than her biological age Derm: warm, dry. Venous discoloration to left lower extremity. Moderate swelling and bruising to left lateral ankle. Left pedal pulse palpated and mar ked with pen by placing X over site. Head: atraumatic, normocephalic, symmetric Eyes: EOMI, no lid lag, anicteric sclera Mouth: no lip lesion, mucus membranes moist Cardiovascular: S1S2 reg, no murmur, positive posterior tibial pulse bilaterally. Lungs: CTA bilateral, no rhonchi, no rales , no accessory muscle use Abdominal: soft, nontender to palpation, no guarding, no appreciable organomegaly Ext: no gross muscle atrophy, no edema, no contractures Neuro: CN II-XI grossly intact, no focal neuro deficits Psych: Alert, oriented, appropriate affect Plan of care: Sepsis secondary to UTI -Sepsis as evidenced by temp 101.4F, heart rate 121, and Initial lactate 3.3 with repeat lactate of 1.4. -Urinalysis positive for protein, leukocytes, and 46 WBCs. -Urine culture positive for gram-negative bacilli, we will continue with Rocephin pending sensitivity results. Left ankle injury - X-ray left ankle revealing soft tissue swelling over the lateral malleolus with probable ankle joint effusion, no acute fractures or dislocations reported. -Safe and supportive care. -Symptomatic care and pain management. -Fall precautions -PT/OT consult. -Consulted orthopedic surgery, Dr. Leary, recommending patient to be fitted with walking boot Lactic acidosis, resolved Hypokalemia, resolved Hyperbilirubinemia, resolved Chronic anemia -Hemoglobin 11.1, at baseline. -We will continue to monitor with repeat a.m. labs. Peripheral vascular disease -Patient has long-standing history of severe peripheral vascular disease resulting in right BKA. -Fall precautions and assistance to be provided as needed. -Encourage use of compression stockings/BAUDILIO hose Rheumatoid arthritis -Safe and supportive care -Symptomatic care and pain management as needed. Neuropathy -Continue daily medication regimen with your current 300 mg twice daily. CODE STATUS: Full code DVT prophylaxis: Lovenox Discussed with: Patient and RN Anticipated discharge date: Clinical course to determine Anticipated discharge place: Home with homecare vs SNF A total of 45 minutes was spent on the care of this complex patient more than 50% of the time was spent in counseling and care coordination. Objective - Vital Signs Vital signs: Vital Signs Temp 97.9 F 05/18/21 08:03 Pulse 103 H 05/18/21 08:03 Resp 19 05/18/21 08:03 BP 96/62 05/18/21 08:03 Pulse Ox 95 05/18/21 08:03 Intake & Output 05/17/21 05/18/21 05/18/21 18:59 06:59 18:59 Output Total 300 1600 Balance -300 -1600 Output: Urine 300 1600 Other: Voiding Method External Catheter External Catheter # Bowel Movements 1 - Labs CBC & Chem 7: 05/17/21 10:36 05/17/21 08:20 Labs: Abnormal Lab Results - Last 24 Hours (Table) 05/17/21 05/17/21 05/17/21 Range/Units 08:20 10:36 11:42 RBC 3.26 L (3.80-5.40) m/uL Hgb 9.7 L (11.4-16.0) gm/dL Hct 31.6 L (34.0-46.0) % MCHC 30.8 L (31.0-37.0) g/dL RDW 22.2 H (11.5-15.5) % Plt Count 102 L (150-450) k/uL Lymphocytes # (Manual) 0.73 L (1.0-4.8) k/uL Metamyelocytes # (Man) 0.06 H (0) k/uL Myelocytes # (Manual) 0.06 H (0) k/uL Chloride 109 H (98-107) mmol/L BUN 20 H (7-17) mg/dL Glucose 154 H (74-99) mg/dL POC Glucose (mg/dL) 138 H (75-99) mg/dL Alkaline Phosphatase 175 H (38-126) U/L Total Protein 6.2 L (6.3-8.2) g/dL Albumin 3.3 L (3.5-5.0) g/dL 05/17/21 05/17/21 05/18/21 Range/Units 16:27 20:21 07:08 RBC (3.80-5.40) m/uL Hgb (11.4-16.0) gm/dL Hct (34.0-46.0) % MCHC (31.0-37.0) g/dL RDW (11.5-15.5) % Plt Count (150-450) k/uL Lymphocytes # (Manual) (1.0-4.8) k/uL Metamyelocytes # (Man) (0) k/uL Myelocytes # (Manual) (0) k/uL Chloride (98-107) mmol/L BUN (7-17) mg/dL Glucose (74-99) mg/dL POC Glucose (mg/dL) 139 H 193 H 189 H (75-99) mg/dL Alkaline Phosphatase (38-126) U/L Total Protein (6.3-8.2) g/dL Albumin (3.5-5.0) g/dL Microbiology - Last 24 Hours (Table) 05/16/21 17:29 Urine Culture - Preliminary Urine,Voided Gram Neg Bacilli Gram Neg Bacilli#2 05/16/21 17:29 Blood Culture - Preliminary Blood No Growth after 24 hours
--- NOTE | 2021-05-18 08:23 | P.PN ---
Subjective Progress Note Date: 05/18/21 Principal diagnosis: Left ankle sprain Patient was evaluated at bedside, she is resting comfortably in her bed. Discussed with patient today that medical supply would be in the fit patient for a Cam Walker boot. When asking patient about her prosthetic for the right leg, she states that it is not available in the hospital. I advised her that if she can have a family member drop that off that would be beneficial. She states that there is some discomfort in the left ankle, but it is improving. She has no other orthopedic complaints at this time. Objective - Vital Signs Vital signs: Vital Signs Temp 97.9 F 05/18/21 08:03 Pulse 103 H 05/18/21 08:03 Resp 19 05/18/21 08:03 BP 96/62 05/18/21 08:03 Pulse Ox 95 05/18/21 08:03 Intake & Output 05/17/21 05/18/21 05/18/21 18:59 06:59 18:59 Output Total 300 1600 Balance -300 -1600 Output: Urine 300 1600 Other: Voiding Method External Catheter External Catheter # Bowel Movements 1 - Exam Left ankle: Notable swelling and ecchymosis on the lateral aspect of the ankle, there is no obvious skin breakdown or other skin lesions She has tenderness patient over the anterior and lateral aspect of the ankle, she is nontender along the medial ankle. Patient is nontender along the proximal tibia-fibula also including the knee. Patient is able to wiggle toes and no difficulty, plantarflexion and dorsiflexion are difficult do reproduce some pain. EHL and FHL are intact with no difficulties Strength testing was not assessed Her sensory exam light touch throughout that extremity is intact, cap refill is less than 2 seconds - Labs CBC & Chem 7: 05/17/21 10:36 05/17/21 08:20 Labs: Abnormal Lab Results - Last 24 Hours (Table) 05/17/21 05/17/21 05/17/21 Range/Units 08:20 10:36 11:42 RBC 3.26 L (3.80-5.40) m/uL Hgb 9.7 L (11.4-16.0) gm/dL Hct 31.6 L (34.0-46.0) % MCHC 30.8 L (31.0-37.0) g/dL RDW 22.2 H (11.5-15.5) % Plt Count 102 L (150-450) k/uL Lymphocytes # (Manual) 0.73 L (1.0-4.8) k/uL Metamyelocytes # (Man) 0.06 H (0) k/uL Myelocytes # (Manual) 0.06 H (0) k/uL Chloride 109 H (98-107) mmol/L BUN 20 H (7-17) mg/dL Glucose 154 H (74-99) mg/dL POC Glucose (mg/dL) 138 H (75-99) mg/dL Alkaline Phosphatase 175 H (38-126) U/L Total Protein 6.2 L (6.3-8.2) g/dL Albumin 3.3 L (3.5-5.0) g/dL 05/17/21 05/17/21 05/18/21 Range/Units 16:27 20:21 07:08 RBC (3.80-5.40) m/uL Hgb (11.4-16.0) gm/dL Hct (34.0-46.0) % MCHC (31.0-37.0) g/dL RDW (11.5-15.5) % Plt Count (150-450) k/uL Lymphocytes # (Manual) (1.0-4.8) k/uL Metamyelocytes # (Man) (0) k/uL Myelocytes # (Manual) (0) k/uL Chloride (98-107) mmol/L BUN (7-17) mg/dL Glucose (74-99) mg/dL POC Glucose (mg/dL) 139 H 193 H 189 H (75-99) mg/dL Alkaline Phosphatase (38-126) U/L Total Protein (6.3-8.2) g/dL Albumin (3.5-5.0) g/dL Microbiology - Last 24 Hours (Table) 05/16/21 17:29 Urine Culture - Preliminary Urine,Voided Gram Neg Bacilli Gram Neg Bacilli#2 05/16/21 17:29 Blood Culture - Preliminary Blood No Growth after 24 hours Assessment and Plan Assessment: Left ankle sprain Plan: Prescription for the Cam Walker boot was provided and placed in patient's chart, plan for medical supply to the patient today Patient would benefit from PT/OT evaluation, this will include gait training Ice and elevate left lower extremity for symptomatic relief Recommend use of the boot at all times when ambulating, patient may take it off when in bed and resting Other medical assisting program director recommendations Discharge planning: Upon patient receiving Cam Walker boot, she would be fit for discharge. Recommend follow-up in the outpatient setting in [address] Leary Time with Patient: Less than 30
[2021-05-18] MEDS ORDERED: ENOXAPARIN 40 MG/0.4 ML SYRINGE SQ SCH (09:00)
[2021-05-18 09:26] LABS: HCT 27.3 % (37.2-46.3); HGB 8.2 g/dL (12.0-15.0); MCH 29.9 pg (27.0-32.0); MCV 99.6 fL (80.0-97.0); Mean Platelet Volume 11.6 fL (9.5-12.2); Platelet Count 83 X 10*3/uL (140-440); RBC 2.74 X 10*6/uL (4.10-5.20); RDW 23.2 % (11.5-14.5); WBC 3.57 X 10*3/uL (4.50-10.00)
[2021-05-18 09:38] LABS: African American GFR (CKD) 81.7 (60.0-200.0); Anion Gap 6.7 mmol/L (4.00-12.00); BUN/Creat Ratio 18.89 Ratio (12.00-20.00); Carbon Dioxide 22.3 mmol/L (21.6-31.8); Magnesium 1.6 mg/dL (1.5-2.4); Non-African American GFR(CKD) 70.5 (60.0-200.0); Potassium 2.9 mmol/L (3.5-5.5)
--- NOTE | 2021-05-18 10:41 | P.PN ---
Subjective Progress Note Date: 05/18/21 Hospital course: Patient is a 60-year-old female with a past medical history of neuropathy, rheumatoid arthritis, chronic anemia, and severe peripheral vascular disease resulting in a right BKA. Patient presented to the emergency department with a chief complaint of fever, chills, fatigue, and injury to left ankle. In the emergency department patient was seen and fully evaluated. She was found to have signs of sepsis in the emergency department with temp of 101.4F, heart rate 121, an initial lactate of 3.3. Urinalysis revealing UTI as it was positive for protein, leukocytes and 46 WBCs. Patient received sepsis bolus followed by maintenance fluids and started on IV antibiotics with Rocephin. X-ray of her left ankle completed and revealed soft tissue swelling over the lateral malleolus with probable ankle joint effusion, no acute fractures or dislocations reported. Chest x-ray was negative for acute cardiopulmonary process. Patient admitted under our services in consultation has been placed for PT/OT and lawn specialist. Physical exam: Patient was seen and fully evaluated at the bedside. She reports left lateral ankle discomfort Improving but states she continues to feel very weak. Patient denies having headache, lightheadedness, dizziness, chest pain, palpitations, shortness of breath, abdominal pain, nausea, vomiting, or experiencing any changes in her difficulties with urinary or bowel function. Patient denies any episodes of noted bleeding or blood in stool or urine. Hemoglobin has dropped nearly 3 g since arrival, fecal occult to be obtained. General: non toxic, no distress, appears older than her biological age Derm: warm, dry. Venous discoloration to left lower extremity. Moderate swelling and bruising to left lateral ankle. Left pedal pulse palpated and marked with pen by placing X over site. Head: atraumatic, normocephalic, symmetric Eyes: EOMI, no lid lag, anicteric sclera Mouth: no lip lesion, mucus membranes moist Cardiovascular: S1S2 reg, no murmur, positive posterior tibial pulse bilaterally. Lungs: CTA bilateral, no rhonchi, no rales , no accessory muscle use Abdominal: soft, nontender to palpation, no guarding, no appreciable organomegaly Ext: no gross muscle atrophy, no edema, no contractures Neuro: CN II-XI grossly intact, no focal neuro deficits Psych: Alert, oriented, appropriate affect Plan of care: Sepsis secondary to UTI -Sepsis as evidenced by temp 101.4F, heart rate 121, and Initial lactate 3.3 with repeat lactate of 1.4. -Urinalysis positive for protein, leukocytes, and 46 WBCs. -Urine culture positive for gram-negative bacilli, we will continue with Rocephin pending sensitivity results. Left ankle injury - X-ray left ankle revealing soft tissue swelling over the lateral malleolus with probable ankle joint effusion, no acute fractures or dislocations reported. -Safe and supportive care. -Symptomatic care and pain management. -Fall precautions -PT/OT consult. -Consulted orthopedic surgery, Dr. Leary, recommending patient to be fitted with walking boot Acute on Chronic anemia -Initial hemoglobin upon presentation was 11.1 and has decreased daily down to 9.7 and now 8.2. -Patient denies noted bleeding but does report weakness. -Fecal occult to be obtained. -We will continue to monitor with repeat a.m. labs. Hypomagnesemia -Magnesium 1.6, replaced. -We will continue to monitor with repeat a.m. labs. Lactic acidosis, resolved Hypokalemia, resolved Hyperbilirubinemia, resolved Peripheral vascular disease -Patient has long-standing history of severe peripheral vascular disease resulting in right BKA. -Fall precautions and assistance to be provided as needed. -Encourage use of compression stockings/BAUDILIO hose Rheumatoid arthritis -Safe and supportive care -Symptomatic care and pain management as needed. Neuropathy -Continue daily medication regimen with your current 300 mg twice daily. CODE STATUS: Full code DVT prophylaxis: Lovenox Discussed with: Patient and RN Anticipated discharge date: Clinical course to determine Anticipated discharge place: Home with homecare vs SNF A total of 45 minutes was spent on the care of this complex patient more than 50% of the time was spent in counseling and care coordination. Objective - Vital Signs Vital signs: Vital Signs Temp 97.9 F 05/18/21 08:03 Pulse 103 H 05/18/21 08:03 Resp 19 05/18/21 08:03 BP 96/62 05/18/21 08:03 Pulse Ox 95 05/18/21 08:03 Intake & Output 05/17/21 05/18/21 05/18/21 18:59 06:59 18:59 Output Total 300 1600 Balance -300 -1600 Output: Urine 300 1600 Other: Voiding Method External Catheter External Catheter # Bowel Movements 1 - Labs CBC & Chem 7: 05/18/21 06:07 05/18/21 06:07 Labs: Abnormal Lab Results - Last 24 Hours (Table) 05/17/21 05/17/21 05/17/21 Range/Units 10:36 11:42 16:27 WBC (4.50-10.00) X 10*3/uL RBC 3.26 L (3.80-5.40) m/uL Hgb 9.7 L (11.4-16.0) gm/dL Hct 31.6 L (34.0-46.0) % MCV (80.0-97.0) fL MCHC 30.8 L (31.0-37.0) g/dL RDW 22.2 H (11.5-15.5) % Plt Count 102 L (150-450) k/uL Absolute Nucleated RBC (0.00-0.00) X 10*3/uL Lymphocytes # (Manual) 0.73 L (1.0-4.8) k/uL Metamyelocytes # (Man) 0.06 H (0) k/uL Myelocytes # (Manual) 0.06 H (0) k/uL NRBC/100 WBC Diff (0.0-0.0) /100 WBCS Potassium (3.5-5.5) mmol/L Glucose (70-110) mg/dL POC Glucose (mg/dL) 138 H 139 H (75-99) mg/dL Calcium (8.7-10.3) mg/dL 05/17/21 05/18/21 05/18/21 Range/Units 20:21 06:07 06:07 WBC 3.57 L (4.50-10.00) X 10*3/uL RBC 2.74 L (3.80-5.40) m/uL Hgb 8.2 L (11.4-16.0) gm/dL Hct 27.3 L (34.0-46.0) % MCV 99.6 H (80.0-97.0) fL MCHC 30.0 L (31.0-37.0) g/dL RDW 23.2 H (11.5-15.5) % Plt Count 83 L (150-450) k/uL Absolute Nucleated RBC 0.03 H (0.00-0.00) X 10*3/uL Lymphocytes # (Manual) (1.0-4.8) k/uL Metamyelocytes # (Man) (0) k/uL Myelocytes # (Manual) (0) k/uL NRBC/100 WBC Diff 0.8 H (0.0-0.0) /100 WBCS Potassium 2.9 L (3.5-5.5) mmol/L Glucose 179 H (70-110) mg/dL POC Glucose (mg/dL) 193 H (75-99) mg/dL Calcium 8.0 L (8.7-10.3) mg/dL 05/18/21 Range/Units 07:08 WBC (4.50-10.00) X 10*3/uL RBC (3.80-5.40) m/uL Hgb (11.4-16.0) gm/dL Hct (34.0-46.0) % MCV (80.0-97.0) fL MCHC (31.0-37.0) g/dL RDW (11.5-15.5) % Plt Count (150-450) k/uL Absolute Nucleated RBC (0.00-0.00) X 10*3/uL Lymphocytes # (Manual) (1.0-4.8) k/uL Metamyelocytes # (Man) (0) k/uL Myelocytes # (Manual) (0) k/uL NRBC/100 WBC Diff (0.0-0.0) /100 WBCS Potassium (3.5-5.5) mmol/L Glucose (70-110) mg/dL POC Glucose (mg/dL) 189 H (75-99) mg/dL Calcium (8.7-10.3) mg/dL Microbiology - Last 24 Hours (Table) 05/16/21 17:29 Urine Culture - Preliminary Urine,Voided Gram Neg Bacilli Gram Neg Bacilli#2 05/16/21 17:29 Blood Culture - Preliminary Blood No Growth after 24 hours
[2021-05-18 11:45] LABS: Glucose,Whole Blood 161 mg/dL (75-99)
--- NOTE | 2021-05-18 11:47 | ECHOF ---
Referral Reason:afib MEASUREMENTS -------- HEIGHT: 170.2 cm WEIGHT: 81.6 kg BP: 104/66 RVIDd: 3.5 cm (< 3.3) IVSd: 1.2 cm (0.6 - 1.1) LVIDd: 4.6 cm (3.9 - 5.3) LVPWd: 1.3 cm (0.6 - 1.1) IVSs: 1.4 cm LVIDs: 2.7 cm LVPWs: 1.4 cm LAESV Index (A-L): 19.53 ml/m Ao Diam: 3.1 cm (2.0 - 3.7) AV Cusp: 2.3 cm (1.5 - 2.6) LA Diam: 4.5 cm (2.7 - 3.8) MV E Kike: 0.95 m/s MV DecT: 98 ms MV A Kike: 0.97 m/s MV E/A Ratio: 0.98 RAP: 5.00 mmHg RVSP: 39.38 mmHg FINDINGS -------- Sinus rhythm. This was a technically adequate study. The left ventricular size is normal. There is mild concentric left ventricular hypertrophy. Overa ll left ventricular systolic function is normal with, an EF between 55 - 60 %. The right ventricle is mildly enlarged. Normal LA size by volume 22+/-6 ml/m2. The right atrial size is normal. Interatrial and interventricular septum intact. There is no evidence of aortic regurgitation. There is no evidence of aortic stenosis. No mitral regurgitation. Mild tricuspid regurgitation present. There is mild pulmonary hypertension. The right ventricular systolic pressure, as measured by Doppler, is 39.38mmHg. There is no pulmonic regurgitation present. The aortic root size is normal. IVC Not well visulized. There is no pericardial effusion. CONCLUSIONS -------- 1. The left ventricular size is normal. 2. There is mild concentric left ventricular hypertrophy. 3. Overall left ventricular systolic function is normal with, an EF between 55 - 60 %. 4. The right ventricle is mildly enlarged. 5. Mild tricuspid regurgitation present. 6. There is mild pulmonary hypertension. 7. The right ventricular systolic pressure, as measured by Doppler, is 39.38mmHg. BEE RAISER: Erlinda Ruff, [facility]
[2021-05-18] MEDS: MAGNESIUM SULFATE-D5W PMX 1 GM in DEXTROSE/WATER 1 100ML.BAG IVPB SCH ×3 (11:53→16:44)
[2021-05-18 16:39] LABS: Glucose,Whole Blood 193 mg/dL (75-99)
[2021-05-18] MEDS ORDERED: Potassium Replacement Protocol 1 EACH MISC MISCELLANE PRN (16:56)
--- NOTE | 2021-05-18 16:57 | P.CRDCN ---
History of Present Illness History of present illness: HISTORY OF PRESENTING ILLNESS This is a pleasant 60-year-old female past medical history significant for hypertensio type 2 diabetes, chronic anemia, arthritis, neuropathy, GERD. 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 We have been asked to see in consultation for atrial fibrillation with RVR. Patient is seen and examined at bedside no acute distress. She states she presented to the emergency department stating her daughter told her she "did not look good". She also had complaints of fatigue, fever, chills, some shortness of breath at home. Patient also states she has been feeling "clumsy" lately. She stepped on her foot, she states she rolled her ankle and had some increased swelling. She denies chest pain, palpitations, lightheadedness, syncope, symptoms of orthopnea or PND. She denies history of OR, stroke, coronary artery disease. She is a chronic smoker, 1/2 PPD. She does drink alcohol about 1 beer a day or a "mixed drink". Family history of heart disease includes father had an OR in his 60s. current home medications include methotrexate, Abilify, Lyrica, omeprazole, folic acid, Cymbalta. DIAGNOSTICS EKG 05/17/2021 reveals sinus tachycardia with premature atrial complexes, Telemetry tracings indicate sinus mechanism, premature atrial complexes, premature ventricular complexes. No evidence of atrial fibrillation on telemetry. Chest xray no active cardiopulmonary disease 05/18/2021 Echocardiogram revealed an EF of 55-60%, mild tricuspid regurgitation, mild pulmonary hypertension, RVSP of 40 mmHg Left ankle x-ray reveals soft tissue swelling over the lateral malleolus probable ankle joint effusion, no acute fractures or dislocations. Laboratory reviewed, UA positive for protein, leukocytes, wbc's, urine culture positive for gram-negative bacilli., WBC 3.5, hemoglobin 8.2, platelets 83, sodium 137, potassium 2.9, when necessary 17, serum creatinine 0.9, magnesium 1.6 REVIEW OF SYSTEMS At the time of my exam: CONSTITUTIONAL: Positive fever, chills CARDIOVASCULAR: +shortness of breath. Denies chest pain, orthopnea, PND or palpitations. RESPIRATORY: Denies cough. GASTROINTESTINAL: Denies abdominal pain, diarrhea, constipation, nausea or vomiting. MUSCULOSKELETAL: Denies myalgias. NEUROLOGIC: Denies numbness, tingling, headacbe or weakness. ENDOCRINE: Denies fatigue, weight change, polydipsia or polyurina. GENITOURINARY: Denies burning, hematuria or urgency with micturation. HEMATOLOGIC: Anemia PHYSICAL EXAMINATION Blood pressure 109/61 heart rate 100 afebrile and maintaining oxygen saturation 93% on 2L nasal cannula . CONSTITUTIONAL: No apparent distress. HEENT: Head is normocephalic. Pupils are equal, round. Sclerae anicteric. Mucous membranes of the mouth are moist. No JVD. No carotid bruit. CHEST EXAMINATION: Lungs are clear to auscultation. No chest wall tenderness is noted on palpation or with deep breathing. HEART EXAMINATION: Regular rate and rhythm. S1, S2 heard. No murmurs, gallops or rub. ABDOMEN: Soft, nontender. Positive bowel sounds. EXTREMITIES: 2+ peripheral pulses, no lower extremity edema and no calf tenderness. Right BKA NEUROLOGIC EXAMINATION: Patient is awake, alert and oriented x3. ASSESSMENT Sinus tachycardia, with premature atrial complexes Urinary tract infection- On IV ceftriaxone Fever, Chills, Fatigue Left ankle pain/injury- ortho following Anemia Hypomagnesemia- replaced Lactic acidosis Hypokalemia Peripheral vascular disease Rheumatoid arthritis PLAN Will replace potassium Will repeat EKG today- patient not in atrial fibrillation Echocardiogram obtained and reviewed Patient does not appear to be in atrial fibrillation. EKGs reviewed with Dr. Howard, patient with no episodes of atrial fibrillation Will continue cardiac telemetry for another 24 hours to capture irregular rhythm. Patient with no episodes of atrial fibrillation Will start metoprolol tartrate 25mg TID Thank you kindly for this consultation. Nurse Practitioner note has been reviewed, I agree with a documented findings and plan of care. Patient was seen and examined. Past Medical History Past Medical History: Diabetes Mellitus, GERD/Reflux, Hypertension, Osteoarthritis (OA), Rheumatoid Arthritis (RA), Vascular Disorder Additional Past Medical History / Comment(s): neuropathy ,Vitiligo, Raynaud's ,peripheral neuropathy. hx cellulitis lt lower leg, pt states hx of ulcers with right BKA.- wears prosthesis., Hx colon polyps., denies current diabetes and htn. History of Any Multi-Drug Resistant Organisms: MRSA Date of last positivie culture/infection: 06/11/12 MDRO Source:: lt axilla Past Surgical History: Appendectomy, Section, Joint Replacement, Orthopedic Surgery, Tonsillectomy, Tubal Ligation Additional Past Surgical History / Comment(s): right shoulder replacement, right leg BK amputation Past Anesthesia/Blood Transfusion Reactions: No Reported Reaction Past Psychological History: Depression Smoking Status: Current every day smoker Past Alcohol Use History: Daily Past Drug Use History: None Reported - Past Family History Mother Family Medical History: No Reported History, Diabetes Mellitus, Hyperlipidemia, Hypertension Father Family Medical History: Diabetes Mellitus, Hypertension Sister(s) Family Medical History: No Reported History Son(s) Family Medical History: No Reported History Medications and Allergies Home Medications Medication Instructions Recorded Confirmed Type metHOTREXate sodium [Methotrexate] 2.5 mg PO WE 04/27/18 05/16/21 History ARIPiprazole [Abilify] 20 mg PO HS 07/09/19 05/16/21 History Omeprazole 20 mg PO DAILY 03/31/20 05/16/21 History Folic Acid 1 mg PO DAILY 07/18/20 05/16/21 History Acetaminophen Tab [Tylenol] 650 mg PO Q4H PRN #30 tablet 07/31/20 05/16/21 Rx DULoxetine HCL [Cymbalta] 60 mg PO DAILY 05/16/21 05/16/21 History Pregabalin [Lyrica] 300 mg PO BID 05/16/21 05/16/21 History Tofacitinib Citrate [Xeljanz Xr] 11 mg PO DAILY 05/16/21 05/16/21 History Cefdinir [Omnicef] 300 mg PO Q12HR #12 capsule 05/19/21 Rx Allergies Allergy/AdvReac Type Severity Reaction Status Date / Time No Known Allergies Allergy Verified 05/16/21 19:47 Physical Exam Vitals: Vital Signs Temp Pulse Resp BP Pulse Ox 05/18/21 14:37 98.3 F 100 19 109/61 93 L 05/18/21 13:59 98 05/18/21 08:03 97.9 F 103 H 19 96/62 95 05/18/21 07:34 17 05/18/21 02:00 98.9 F 102 H 17 104/66 90 L 05/17/21 19:30 89 15 05/17/21 19:08 99.7 F H 89 15 105/58 96 Intake and Output 05/17/21 05/18/21 05/18/21 22:59 06:59 14:59 Output Total 1500 400 700 Balance -1500 -400 -700 Output: Urine 1500 400 700 Other: Voiding Method External Catheter Diaper External Catheter # Bowel Movements 1 Results 05/19/21 07:44 05/19/21 07:44 CBC 05/18/21 Range/Units 06:07 WBC 3.57 L (4.50-10.00) X 10*3/uL RBC 2.74 L (4.10-5.20) X 10*6/uL Hgb 8.2 L (12.0-15.0) g/dL Hct 27.3 L (37.2-46.3) % Plt Count 83 L (140-440) X 10*3/uL Comprehensive Metabolic Panel 05/18/21 Range/Units 06:07 Sodium 137 (135-145) mmol/L Potassium 2.9 L (3.5-5.5) mmol/L Chloride 108 (96-109) mmol/L Carbon Dioxide 22.3 (21.6-31.8) mmol/L BUN 17.0 (9.0-27.0) mg/dL Creatinine 0.9 (0.6-1.5) mg/dL Glucose 179 H (70-110) mg/dL Calcium 8.0 L (8.7-10.3) mg/dL Current Medications Generic Name Dose Route Start Last Admin Trade Name Freq PRN Reason Stop Dose Admin Acetaminophen 650 mg 05/16/21 19:29 Acetaminophen Tab 325 Mg Tab PO Q4H PRN Pain Aripiprazole 20 mg 05/17/21 21:00 05/17/21 20:24 Aripiprazole 20 Mg Tab PO 20 mg HS RUBIA Administration Diltiazem HCl 30 mg 05/17/21 21:00 05/18/21 07:30 Diltiazem Oral 30 Mg Tab PO 30 mg BID RUBIA Administration Duloxetine HCl 60 mg 05/17/21 09:00 05/18/21 07:30 Duloxetine Hcl 60 Mg Capsule.Dr PO 60 mg DAILY RUBIA Administration Ceftriaxone Sodium 1 gm/ 50 mls @ 100 mls/hr 05/17/21 19:00 05/17/21 20:23 Sodium Chloride IVPB 100 mls/hr Q24H RUBIA Administration Insulin Aspart 0 unit 05/16/21 21:00 05/18/21 11:54 Insulin Aspart (Novolog) 100 Unit/Ml Vial SQ 2 unit ACHS RUBIA Administration Protocol Pantoprazole Sodium 40 mg 05/17/21 07:30 05/18/21 07:30 Pantoprazole 40 Mg Tablet PO 40 mg AC-BRKFST RUBIA Administration Pregabalin 300 mg 05/17/21 09:00 05/18/21 07:30 Pregabalin 100 Mg Cap PO 300 mg BID RUBIA Administration Intake and Output 05/17/21 05/18/21 05/18/21 22:59 06:59 14:59 Output Total 1500 400 700 Balance -1500 -400 -700 Output: Urine 1500 400 700 Other: Voiding Method External Catheter Diaper External Catheter # Bowel Movements 1 05/18/21 06:07 05/18/21 06:07
[2021-05-18] MEDS: POTASSIUM CHLORIDE ER 20 MEQ TAB.ER PO SCH ×2 (17:24→21:19)
[2021-05-18 20:43] LABS: Glucose,Whole Blood 145 mg/dL (75-99)
[2021-05-18] MEDS: METOPROLOL TARTRATE 25 MG TAB PO SCH (21:09)
[2021-05-19] MEDS: POTASSIUM CHLORIDE ER 20 MEQ TAB.ER PO SCH (00:20)
[2021-05-19 07:19] LABS: Glucose,Whole Blood 140 mg/dL (75-99)
[2021-05-19] MEDS: INSULIN ASPART (NovoLOG) 100 UNIT/ML VIAL SQ SCH ×2 (07:41→12:34)
[2021-05-19] MEDS: PANTOPRAZOLE 40 MG TABLET PO SCH (07:42)
[2021-05-19] MEDS: METOPROLOL TARTRATE 25 MG TAB PO SCH (08:25)
[2021-05-19] MEDS: DULoxetine HCL 60 MG CAPSULE.DR PO SCH (08:26)
[2021-05-19] MEDS: PREGABALIN 100 MG CAP PO SCH (08:26)
[2021-05-19 08:43] LABS: Anisocytosis Moderate; Basophils % (A) 1 %; Eosinophils # (A) 0.1 k/uL (0-0.7); Eosinophils % (A) 2 %; HCT 28.3 % (34.0-46.0); Hypochromasia Marked; Lymphocytes # (A) 0.4 k/uL (1.0-4.8); Lymphocytes % (A) 13 %; MCH 30.9 pg (25.0-35.0); MCHC 31.7 g/dL (31.0-37.0); MCV 97.3 fL (80.0-100.0); Macrocytosis Moderate; Mean Platelet Volume 8.5; Monocytes # (A) 0.3 k/uL (0-1.0); Monocytes % (A) 8 %; Neutrophils # (A) 2.5 k/uL (1.3-7.7); Neutrophils % (A) 74 %; Platelet Count 117 k/uL (150-450); RBC 2.91 m/uL (3.80-5.40); RDW 22.9 % (11.5-15.5); WBC 3.4 k/uL (3.8-10.6)
[2021-05-19 08:59] LABS: African American GFR (CKD) 74 (>60 ml/min/1.73 sqM); Anion Gap 5 mmol/L; Blood Urea Nitrogen 16 mg/dL (7-17); Calcium 8.3 mg/dL (8.4-10.2); Carbon Dioxide 24 mmol/L (22-30); Chloride 110 mmol/L (98-107); Glucose 146 mg/dL (74-99); Non-African American GFR(CKD) 64 (>60 ml/min/1.73 sqM); Potassium 3.6 mmol/L (3.5-5.1); Sodium 139 mmol/L (137-145)
[2021-05-19 11:18] LABS: Glucose,Whole Blood 134 mg/dL (75-99)
[2021-05-19 13:32] VITALS: BP 99/67; PULSE 97; RESP 17; TEMP 98.2
--- NOTE | 2021-05-19 13:49 | P.DS ---
Providers Date of admission: 05/16/21 18:45 Expected date of discharge: 05/19/21 Attending physician: Isabel Saldana DO Consults: 05/17/21 12:31 Consult Physician Routine Consulting Provider: Troy Leary Consult Reason/Comments: Injury to left lateral ankle with ankle joint effusion Do you want consulting provider notified?: Yes 05/17/21 18:15 Consult Physician Urgent Consulting Provider: Nixon Medel Consult Reason/Comments: Afib, rvr Do you want consulting provider notified?: Yes Primary care physician: [facility] Course: Sepsis secondary to UTI, presumably pyelonephritis Left Ankle Injury Acute on Chronic Anemia Peripheral Vascular Disease Rheumatoid Arthritis Peripheral Neuropathy Patient is a 60-year-old female with a past medical history of neuropathy, rheumatoid arthritis, chronic anemia, and severe peripheral vascular disease resulting in a right BKA. In the emergency department patient was seen and fully evaluated. She was found to have signs of sepsis in the emergency department with temp of 101.4F, heart rate 121, an initial lactate of 3.3. Urinalysis revealing UTI as it was positive for protein, leukocytes and 46 WBCs. Patient received sepsis bolus followed by maintenance fluids and started on IV antibiotics with Rocephin. X-ray of her left ankle completed and revealed soft tissue swelling over the lateral malleolus with probable ankle joint effusion, no acute fractures or dislocations reported. Chest x-ray was negative for acute cardiopulmonary process. Patient admitted under our services in consultation has been placed for PT/OT and department specialist. She improved with IV abx. She was seen by ortho who recommended fracture boot for LLE as well as BING therapy. Pt seen by cardiology regarding irregular rhythm at times, and was found to have sinus rhythm with PACs. She was discharged home with home care services as well as omnicef to complete an 8 day course of abx for complicated UTI, with presumed pyelonephritis given septic sympttoms on admission. I spent 33 minutes coordinating this complex discharge. Assessment: Gen: awake, alert HEENT: normocephalic, atraumatic, good hearing acuity, moist mucous membranes Resp: good air exchange, breathing comfortably with no accessory muscle use CVS: good distal perfusion x 4, GI: soft, NTTP, ND : no SPT, no CVAT, rodsa catheter not present MSK: no pitting edema, no clubbing Neuro: non-focal, moving all extremities Psych: cooperative, euthymic mood Patient Condition at Discharge: Good Plan - Discharge Summary Discharge Rx Participant: No New Discharge Prescriptions: New Cefdinir [Omnicef] 300 mg PO Q12HR #12 capsule Continue metHOTREXate sodium [Methotrexate] 2.5 mg PO WE ARIPiprazole [Abilify] 20 mg PO HS Omeprazole 20 mg PO DAILY Folic Acid 1 mg PO DAILY Acetaminophen Tab [Tylenol] 650 mg PO Q4H PRN #30 tablet PRN Reason: Pain Tofacitinib Citrate [Xeljanz Xr] 11 mg PO DAILY Pregabalin [Lyrica] 300 mg PO BID DULoxetine HCL [Cymbalta] 60 mg PO DAILY Discharge Medication List metHOTREXate sodium [Methotrexate] 2.5 mg PO WE 04/27/18 [History] ARIPiprazole [Abilify] 20 mg PO HS 07/09/19 [History] Omeprazole 20 mg PO DAILY 03/31/20 [History] Folic Acid 1 mg PO DAILY 07/18/20 [History] Acetaminophen Tab [Tylenol] 650 mg PO Q4H PRN #30 tablet 07/31/20 [Rx] DULoxetine HCL [Cymbalta] 60 mg PO DAILY 05/16/21 [History] Pregabalin [Lyrica] 300 mg PO BID 05/16/21 [History] Tofacitinib Citrate [Xeljanz Xr] 11 mg PO DAILY 05/16/21 [History] Cefdinir [Omnicef] 300 mg PO Q12HR #12 capsule 05/19/21 [Rx] Follow up Appointment(s)/Referral(s): Noa Mae MD [Primary Care Provider] - 05/25/21 11:45 am [facility], [NON-STAFF] - As Needed Troy Leary DO [Doctor of Osteopathic Medicine] - 06/04/21 8:50 am Patient Instructions/Handouts: Ankle Fracture (DC), Urinary Tract Infection in Women (DC), Pain Management (DC) Discharge Disposition: HOME WITH HOME HEALTH SERVICES
== END 2021-05-19 13:57 | disposition home health service (06) | DRG 872 ==
LOC: EC 16:14 → SUPCPDRO 16:14 → 5NMEDONC 18:45 → 4SSUR 20:21
PROVIDERS: ADMIT Internal Medicine; ATTEND Internal Medicine
DX: A41.9 Sepsis, unspecified organism (principal); N12 Tubulo-interstitial nephritis, not specified as acute or chronic; E87.2 Acidosis; Z16.24 Resistance to multiple antibiotics; Z20.822 Contact with and (suspected) exposure to COVID-19; Z89.511 Acquired absence of right leg below knee; Z96.611 Presence of right artificial shoulder joint; Z87.19 Personal history of other diseases of the digestive system; Z83.3 Family history of diabetes mellitus; Z82.49 Family history of ischemic heart disease and other diseases of the circulatory system; Z79.899 Other long term (current) drug therapy; M06.9 Rheumatoid arthritis, unspecified; I48.91 Unspecified atrial fibrillation; I10 Essential (primary) hypertension; F32.9 Major depressive disorder, single episode, unspecified; F17.210 Nicotine dependence, cigarettes, uncomplicated; E87.6 Hypokalemia; E83.42 Hypomagnesemia; E11.40 Type 2 diabetes mellitus with diabetic neuropathy, unspecified; D64.9 Anemia, unspecified; K21.9 Gastro-esophageal reflux disease without esophagitis; L80 Vitiligo; M19.90 Unspecified osteoarthritis, unspecified site
CPT/HCPCS: 36415; 71045; 80048; 80053; 81001; 83605; 83735; 85025; 85027; 87040; 87077; 87086; 87186; 87635; 93005; 93306; 96360; 99285

== ENCOUNTER → 2021-07-27 | Outpatient (CLI) | payer MEDICARE, OTHER | END | disposition home or self-care (01) | LOC: LABWHC1 12:58 | PROVIDERS: ATTEND Internal Medicine Rheumatology | DX: R74.8 Abnormal levels of other serum enzymes (principal) | CPT/HCPCS: 36415; 84075 ==

== ENCOUNTER 2021-09-03 12:33 | Inpatient (IN) | payer MEDICARE, OTHER ==
[2021-09-03] MEDS ORDERED: ONDANSETRON 4 MG/2 ML VIAL IVP STA (12:53)
[2021-09-03] MEDS ORDERED: SODIUM CHLORIDE 0.9% 1,000 ML IV STA ×2 (12:53)
[2021-09-03 12:54] LABS: Glucose,Whole Blood 180 mg/dL (75-99)
--- NOTE | 2021-09-03 13:03 | ED ---
Nausea/Vomiting/Diarrhea HPI - General Chief complaint: Nausea/Vomiting/Diarrhea Stated complaint: nausea Time Seen by Provider: 09/03/21 12:39 Source: patient, RN notes reviewed Mode of arrival: ambulatory Limitations: no limitations - History of Present Illness Initial comments: This is a 61-year-old female who presents with complaints of nausea and has for 5 days decreased oral intake weakness and failure to thrive. She denies any fevers chills or sweats no cough no phlegm production no abdominal pain last bowel movement was yesterday. MD complaint: nausea, other - Related Data Home Medications Medication Instructions Recorded Confirmed ARIPiprazole [Abilify] 20 mg PO HS 07/09/19 09/03/21 Omeprazole 20 mg PO DAILY 03/31/20 09/03/21 Folic Acid 1 mg PO DAILY 07/18/20 09/03/21 DULoxetine HCL [Cymbalta] 60 mg PO DAILY 05/16/21 09/03/21 Pregabalin [Lyrica] 300 mg PO BID 05/16/21 09/03/21 Glimepiride [Amaryl] 1 mg PO AC-BRKFST 09/03/21 09/03/21 Tocilizumab [Actemra] 0 mg SQ Q14D 09/03/21 09/03/21 Allergies Allergy/AdvReac Type Severity Reaction Status Date / Time No Known Allergies Allergy Verified 09/03/21 13:45 Review of Systems ROS Statement: Those systems with pertinent positive or pertinent negative responses have been documented in the HPI. ROS Other: All systems not noted in ROS Statement are negative. Past Medical History Past Medical History: Diabetes Mellitus, GERD/Reflux, Hypertension, Osteoarthritis (OA), Rheumatoid Arthritis (RA), Vascular Disorder Additional Past Medical History / Comment(s): neuropathy ,Vitiligo, Raynaud's ,peripheral neuropathy. hx cellulitis lt lower leg, pt states hx of ulcers with right BKA.- wears prosthesis., Hx colon polyps., denies current diabetes and htn. History of Any Multi-Drug Resistant Organisms: MRSA Date of last positivie culture/infection: 06/11/12 MDRO Source:: lt axilla Past Surgical History: Appendectomy, Section, Joint Replacement, Orthopedic Surgery, Tonsillectomy, Tubal Ligation Additional Past Surgical History / Comment(s): right shoulder replacement, right leg BK amputation Past Anesthesia/Blood Transfusion Reactions: No Reported Reaction Past Psychological History: Depression Smoking Status: Current every day smoker Past Alcohol Use History: Daily Past Drug Use History: None Reported - Past Family History Mother Family Medical History: No Reported History, Diabetes Mellitus, Hyperlipidemia, Hypertension Father Family Medical History: Diabetes Mellitus, Hypertension Sister(s) Family Medical History: No Reported History Son(s) Family Medical History: No Reported History General Exam - General Exam Comments Initial Comments: This is a well-developed female who is awake alert oriented 3 Limitations: no limitations General appearance: alert, in no apparent distress Head exam: Present: atraumatic, normocephalic, normal inspection Eye exam: Present: normal appearance, PERRL, EOMI. Absent: scleral icterus, conjunctival injection, periorbital swelling ENT exam: Present: mucous membranes dry Neck exam: Present: normal inspection, full ROM. Absent: tenderness, meningismus, lymphadenopathy Respiratory exam: Present: normal lung sounds bilaterally. Absent: respiratory distress, wheezes, rales, rhonchi, stridor Cardiovascular Exam: Present: normal rhythm, tachycardia, normal heart sounds. Absent: systolic murmur, diastolic murmur, rubs, gallop, clicks GI/Abdominal exam: Present: soft, distended, normal bowel sounds, other (Increased tympany on percussion). Absent: tenderness, guarding, rebound, rigi d, bruit, pulsatile mass Rectal exam: Present: deferred Extremities exam: Present: full ROM, normal capillary refill, other (Rate below the knee"). Absent: tenderness, pedal edema, joint swelling, calf tenderness Back exam: Present: normal inspection Neurological exam: Present: alert, oriented X3, CN II-XII intact Psychiatric exam: Present: normal affect, normal mood Skin exam: Present: warm, dry, intact, normal color. Absent: rash Course Vital Signs 09/03/21 09/03/21 12:35 14:33 Temperature 99.8 F H Pulse Rate 114 H 110 H Respiratory 18 20 Rate Blood Pressure 122/74 133/83 O2 Sat by Pulse 94 L 97 Oximetry Medical Decision Making - Medical Decision Making I did discuss [employer] the patient family as well as with Dr. Lopez service patient will be admitted for inpatient evaluation and treatment of intractable vomiting and dehydration - Lab Data Result diagrams: 09/03/21 12:57 09/03/21 12:57 Lab Results 09/03/21 09/03/21 09/03/21 Range/Units 12:53 12:57 12:57 WBC 10.1 (3.8-10.6) k/uL RBC 5.12 (3.80-5.40) m/uL Hgb 13.6 (11.4-16.0) gm/dL Hct 42.4 (34.0-46.0) % MCV 82.8 (80.0-100.0) fL MCH 26.6 (25.0-35.0) pg MCHC 32.2 (31.0-37.0) g/dL RDW 16.3 H (11.5-15.5) % Plt Count 150 (150-450) k/uL MPV 13.2 Neutrophils % 60 % Lymphocytes % 26 % Monocytes % 10 % Eosinophils % 1 % Basophils % 0 % Neutrophils # 6.0 (1.3-7.7) k/uL Lymphocytes # 2.6 (1.0-4.8) k/uL Monocytes # 1.0 (0-1.0) k/uL Eosinophils # 0.1 (0-0.7) k/uL Basophils # 0.0 (0-0.2) k/uL Manual Slide Review Performed Hypochromasia Slight Anisocytosis Slight Sodium (137-145) mmol/L Potassium (3.5-5.1) mmol/L Chloride (98-107) mmol/L Carbon Dioxide (22-30) mmol/L Anion Gap mmol/L BUN (7-17) mg/dL Creatinine (0.52-1.04) mg/dL Est GFR (CKD-EPI)AfAm (>60 ml/min/1.73 sqM) Est GFR (CKD-EPI)NonAf (>60 ml/min/1.73 sqM) Glucose (74-99) mg/dL POC Glucose (mg/dL) 180 H (75-99) mg/dL POC Glu Rn Ccu ID Sean Black Calcium (8.4-10.2) mg/dL Magnesium (1.6-2.3) mg/dL Total Bilirubin (0.2-1.3) mg/dL AST (14-36) U/L ALT (4-34) U/L Alkaline Phosphatase (38-126) U/L Total Protein (6.3-8.2) g/dL Albumin (3.5-5.0) g/dL Lipase (23-300) U/L Urine Color Light Yellow Urine Appearance Clear (Clear) Urine pH 7.0 (5.0-8.0) Ur Specific Page 1.002 (1.001-1.035) Urine Protein Trace H (Negative) Urine Glucose (UA) Negative (Negative) Urine Ketones Negative (Negative) Urine Blood Negative (Negative) Urine Nitrite Negative (Negative) Urine Bilirubin Negative (Negative) Urine Urobilinogen <2.0 (<2.0) mg/dL Ur Leukocyte Esterase Negative (Negative) Coronavirus (PCR) (Not Detectd) 09/03/21 09/03/21 Range/Units 12:57 16:04 WBC (3.8-10.6) k/uL RBC (3.80-5.40) m/uL Hgb (11.4-16.0) gm/dL Hct (34.0-46.0) % MCV (80.0-100.0) fL MCH (25.0-35.0) pg MCHC (31.0-37.0) g/dL RDW (11.5-15.5) % Plt Count (150-450) k/uL MPV Neutrophils % % Lymphocytes % % Monocytes % % Eosinophils % % Basophils % % Neutrophils # (1.3-7.7) k/uL Lymphocytes # (1.0-4.8) k/uL Monocytes # (0-1.0) k/uL Eosinophils # (0-0.7) k/uL Basophils # (0-0.2) k/uL Manual Slide Review Hypochromasia Anisocytosis Sodium 136 L (137-145) mmol/L Potassium 2.6 L* (3.5-5.1) mmol/L Chloride 102 (98-107) mmol/L Carbon Dioxide 22 (22-30) mmol/L Anion Gap 12 mmol/L BUN 8 (7-17) mg/dL Creatinine 0.93 (0.52-1.04) mg/dL Est GFR (CKD-EPI)AfAm 78 (>60 ml/min/1.73 sqM) Est GFR (CKD-EPI)NonAf 68 (>60 ml/min/1.73 sqM) Glucose 178 H (74-99) mg/dL POC Glucose (mg/dL) (75-99) mg/dL POC Glu Rn Ccu ID Calcium 8.5 (8.4-10.2) mg/dL Magnesium 2.1 (1.6-2.3) mg/dL Total Bilirubin 0.5 (0.2-1.3) mg/dL AST 25 (14-36) U/L ALT 14 (4-34) U/L Alkaline Phosphatase 238 H (38-126) U/L Total Protein 6.7 (6.3-8.2) g/dL Albumin 3.1 L (3.5-5.0) g/dL Lipase 44 (23-300) U/L Urine Color Urine Appearance (Clear) Urine pH (5.0-8.0) Ur Specific Page (1.001-1.035) Urine Protein (Negative) Urine Glucose (UA) (Negative) Urine Ketones (Negative) Urine Blood (Negative) Urine Nitrite (Negative) Urine Bilirubin (Negative) Urine Urobilinogen (<2.0) mg/dL Ur Leukocyte Esterase (Negative) Coronavirus (PCR) Not Detected (Not Detectd) - EKG Data -: EKG Interpreted by Me EKG shows normal: sinus rhythm EKG Comments: Sinus tachycardia rate 112 TN interval 146 QRS 92 QT since QTC 336/458. She with aberrant conduction - Radiology Data Radiology results: report reviewed (Imaging reviewed no acute findings are seen at this time), image reviewed Disposition Clinical Impression: Intractable nausea and vomiting, Dehydration, Failure to thrive in adult Disposition: ADMITTED IP TO THIS HOSP Condition: Fair Referrals: Noa Mae MD [Primary Care Provider] - 1-2 days
[2021-09-03 13:21] LABS: Anisocytosis Slight; Basophils % (A) 0 %; Eosinophils # (A) 0.1 k/uL (0-0.7); Eosinophils % (A) 1 %; HCT 42.4 % (34.0-46.0); HGB 13.6 gm/dL (11.4-16.0); Hypochromasia Slight; Lymphocytes # (A) 2.6 k/uL (1.0-4.8); Lymphocytes % (A) 26 %; MCH 26.6 pg (25.0-35.0); MCHC 32.2 g/dL (31.0-37.0); MCV 82.8 fL (80.0-100.0); Mean Platelet Volume 13.2; Monocytes % (A) 10 %; Neutrophils % (A) 60 %; RBC 5.12 m/uL (3.80-5.40); RDW 16.3 % (11.5-15.5); WBC 10.1 k/uL (3.8-10.6)
--- NOTE | 2021-09-03 13:22 | XR ---
EXAMINATION TYPE: XR chest 2V DATE OF EXAM: 09/03/2021 COMPARISON: 05/16/2021 HISTORY: Shortness of breath TECHNIQUE: Frontal and lateral views of the chest are obtained. FINDINGS: Scattered senescent parenchymal changes noted. Hyperinflation compatible with COPD. No evidence for infiltrate. No evidence for atelectasis. Heart size is stable. Mediastinal structures are stable and grossly unremarkable. No evidence for hilar prominence. Degenerative changes dorsal spine. IMPRESSION: 1. No evidence for acute pulmonary disease.
--- NOTE | 2021-09-03 13:23 | XR ---
EXAMINATION TYPE: XR KUB DATE OF EXAM: 09/03/2021 COMPARISON: NONE HISTORY: Pain TECHNIQUE: Single supine KUB image of the abdomen is obtained FINDINGS: Small bowel demonstrates no evidence for dilatation or air fluid levels. Gas and fecal material is seen in non-distended colon. No convincing evidence for pneumoperitoneum. No unusual calcifications. The lung bases are clear. The osseous structures are intact. IMPRESSION: 1. Nonspecific bowel gas pattern.
[2021-09-03 13:29] LABS: Albumin 3.1 g/dL (3.5-5.0); Calcium 8.5 mg/dL (8.4-10.2); Magnesium 2.1 mg/dL (1.6-2.3); Total Bilirubin 0.5 mg/dL (0.2-1.3); Total Protein 6.7 g/dL (6.3-8.2)
[2021-09-03 13:35] LABS: Potassium 2.6 mmol/L (3.5-5.1)
[2021-09-03 14:09] LABS: Platelet Count 150 k/uL (150-450)
[2021-09-03] MEDS ORDERED: POTASSIUM CHLORIDE 20 MEQ in WATER FOR INJECTION 1 100ML.BAG IVPB STA (14:16)
[2021-09-03 14:36] LABS: Appearance,Urine Clear (Clear); Bilirubin,Urine Negative (Negative); Blood,Urine Negative (Negative); Color,Urine Light Yellow; Glucose,Urine (UA) Negative (Negative); Ketones,Urine Negative (Negative); Leukocyte Esterase,Urine Negative (Negative); Nitrite,Urine Negative (Negative); Protein,Urine Trace (Negative); Specific Gravity,Urine 1.002 (1.001-1.035); Urobilinogen,Urine <2.0 mg/dL (<2.0)
[2021-09-03] MEDS ORDERED: NALOXONE 0.4 MG/ML 1 ML VIAL IV PRN (17:10)
[2021-09-03] MEDS ORDERED: ACETAMINOPHEN TAB 325 MG TAB PO PRN (17:15)
[2021-09-03] MEDS ORDERED: bisacodyL 5 MG TABLET.DR PO PRN (17:15)
[2021-09-03] MEDS ORDERED: PROCHLORPERAZINE INJ 10 MG/2 ML VIAL IVP PRN (17:18)
[2021-09-03] MEDS ORDERED: MAG HYDROX/AL HYDROX/SIMETH 30 ML, HYOSCYAMINE ELIXIR 10 ML, LIDOCAINE VISCOUS 2% 10 ML PO ONE ×3 (17:18)
[2021-09-03] MEDS: POTASSIUM CHLORIDE 10 MEQ in WATER FOR INJECTION 1 100ML.BAG IVPB SCH ×6 (17:24→23:47)
--- NOTE | 2021-09-03 17:42 | P.HPIM ---
<Allan Rios - Last Filed: 09/03/21 18:46> History of Present Illness H&P Date: 09/03/21 History of Presenting Illness: Patient is a very pleasant 61-year-old female with a past medical history of rheumatoid arthritis and neuropathy. She presented to the emergency department with a chief complaint of persistent nausea, chills, and anorexia 5 days accompanied by moderate abdominal bloating and distention. Upon arrival to the emergency department patient was found to be tachycardic with heart rate of 114 along with a low-grade temp of 99.8F orally. EKG showing sinus tachycardia at 112 bpm with periodic PVC showing no T-wave or ST abnormalities. A chest x-ray was completed negative for acute cardiopulmonary process. KUB negative for acute process showing gas and fecal material and nondistended colon with no evidence of dilation and/or obstruction revealing a nonspecific bowel gas pattern. Labs completed with CBC unremarkable and CMP with hypokalemia with potassium of 2.6 and elevated alkaline phosphatase of 238 otherwise normal liver function and pancreatic enzymes and labs showing no further significant abnormalities. Urinalysis negative for infection. Covid PCR negative. Patient admitted under our services for medical observation secondary to dehydration and intractable nausea. Patient seen and evaluated at the bedside. Patient found to have taught distended abdomen but denied any tenderness upon palpation, rebound tenderness, or any other complaints. She reports last bowel movement yesterday and reports normal consistency denying any hematochezia or melena. Patient denies having any fever, diaphoresis, chest pain, palpitations, shortne ss of breath, dyspnea with exertion, abdominal pain or cramping, dysuria, hematuria, urinary frequency or urgency. Review of systems: Pertinent positives and negatives as discussed in HPI, a complete review of systems was performed and all other systems are negative. Physical exam: Vital signs reviewed and stable. General: Nontoxic, no distress and appears stated age. Morbidly obese. Derm: Skin warm and dry, normal coloration for ethnicity. Head: Atraumatic, normocephalic and symmetric. Eyes: EOMs intact, no lid lag, and anicteric sclera Mouth: no lip lesions, mucus membranes moist Cardiovascular: regular rate and rhythm with normal S1S2, no murmur, positive posterior tibial pulses bilaterally, and cap refill < 2 seconds. Lungs: Respirations even, regular, and unlabored on room air. Lungs CTA b ilaterally, no rhonchi, no rales, no wheezing, and no accessory muscle usage. Abdominal: Bowel sounds 4 quadrants normal. Abdomen taut and distended, nonten dianna to palpation, no guarding, no appreciable organomegaly Ext: ROM intact. No gross muscle atrophy, no edema, no contractures Neuro: Speech clear, face symmetrical and CN II-XII grossly intact with no noted focal neuro deficits Psych: Alert and oriented to person, place, time, and situation. Appropriate and pleasant affect. Assessment and Plan of Care: Intractable nausea without vomiting accompanied by anorexia and abdominal bloa ting Dehydration Hypokalemia Elevated alkaline phosphatase -Hydration with IV fluids. -Replacement of abnormal electrolyte values. -Supportive management, antiemetics with Compazine. -Simethicone 4 times daily -GI cocktail 1 dose. -If no improvement in abdominal distention/nausea by tomorrow morning or development of abdominal pain/discomfort, will place order order for CT abdomen and pelvis. -Continue close monitoring with repeat abdominal labs Type II [id number] diabetes mellitus -Hold glimepiride and place patient on glycemic protocol with NovoLog sliding scale. Diabetic neuropathy -Continue daily medication regimen with Lyrica. Rheumatoid arthritis -Hold Tocilizumab. -Symptomatic care and pain management. The patient is admitted with an anticipated less than 2 midnight stay for evaluation of dehydration and hypokalemia. CODE STATUS: Full code DVT prophylaxis: Heparin Discussed with: Patient, patient has been, and RN Anticipated discharge date:1-[address]: Home A total of 45 minutes was spent on the care of this complex patient more than 50% of the time was spent in counseling and care coordination. Past Medical History Past Medical History: Diabetes Mellitus, GERD/Reflux, Hypertension, Osteoarthritis (OA), Rheumatoid Arthritis (RA), Vascular Disorder Additional Past Medical History / Comment(s): neuropathy ,Vitiligo, Raynaud's ,peripheral neuropathy. hx cellulitis lt lower leg, pt states hx of ulcers with right BKA.- wears prosthesis., Hx colon polyps., denies current diabetes and htn. History of Any Multi-Drug Resistant Organisms: MRSA Date of last positivie culture/infection: 06/11/12 MDRO Source:: lt axilla Past Surgical History: Appendectomy, Section, Joint Replacement, Orthopedic Surgery, Tonsillectomy, Tubal Ligation Additional Past Surgical History / Comment(s): right shoulder replacement, right leg BK amputation Past Anesthesia/Blood Transfusion Reactions: No Reported Reaction Past Psychological History: Depression Smoking Status: Current every day smoker Past Alcohol Use History: Daily Past Drug Use History: None Reported - Past Family History Mother Family Medical History: No Reported History, Diabetes Mellitus, Hyperlipidemia, Hypertension Father Family Medical History: Diabetes Mellitus, Hypertension Sister(s) Family Medical History: No Reported History Son(s) Family Medical History: No Reported History Medications and Allergies Home Medications Medication Instructions Recorded Confirmed Type ARIPiprazole [Abilify] 20 mg PO HS 07/09/19 09/03/21 History Omeprazole 20 mg PO DAILY 03/31/20 09/03/21 History Folic Acid 1 mg PO DAILY 07/18/20 09/03/21 History DULoxetine HCL [Cymbalta] 60 mg PO DAILY 05/16/21 09/03/21 History Pregabalin [Lyrica] 300 mg PO BID 05/16/21 09/03/21 History Glimepiride [Amaryl] 1 mg PO [id number]-[id number] 09/03/21 09/03/21 History Tocilizumab [Actemra] 0 mg SQ Q14D 09/03/21 09/03/21 History Allergies Allergy/AdvReac Type Severity Reaction Status Date / Time No Known Allergies Allergy Verified 09/03/21 13:45 Physical Exam Vitals: Vital Signs Temp Pulse Resp BP Pulse Ox 09/03/21 17:18 108 H 220 H 139/90 96 09/03/21 14:33 110 H 20 133/83 97 09/03/21 12:35 99.8 F H 114 H 18 122/74 94 L Intake and Output 09/03/21 09/03/21 09/03/21 06:59 14:59 22:59 Other: Voiding Method Toilet Weight 72.575 kg Results CBC & Chem 7: 09/03/21 12:57 09/03/21 12:57 Labs: Abnormal Lab Results - Last 24 Hours (Table) 09/03/21 09/03/21 09/03/21 Range/Units 12:53 12:57 12:57 RDW 16.3 H (11.5-15.5) % Sodium (137-145) mmol/L Potassium (3.5-5.1) mmol/L Glucose (74-99) mg/dL POC Glucose (mg/dL) 180 H (75-99) mg/dL Alkaline Phosphatase (38-126) U/L Albumin (3.5-5.0) g/dL Urine Protein Trace H (Negative) 09/03/21 Range/Units 12:57 RDW (11.5-15.5) % Sodium 136 L (137-145) mmol/L Potassium 2.6 L* (3.5-5.1) mmol/L Glucose 178 H (74-99) mg/dL POC Glucose (mg/dL) (75-99) mg/dL Alkaline Phosphatase 238 H (38-126) U/L Albumin 3.1 L (3.5-5.0) g/dL Urine Protein (Negative) <Rekha Klein - Last Filed: 09/04/21 00:16> History of Present Illness Patient seen and examined independently. Patient was also seen by Allan Rios NP and case was discussed. I am in agreement with subjective, physical exam, assessment and plan as written above and amended below. General: [non toxic], [no distress], [appears at stated age] Derm: [warm], [dry] Head: [atraumatic], [normocephalic], [symmetric] Eyes: [EOMI], [no lid lag], [anicteric sclera] Mouth: [no lip lesion], [mucus membranes moist] Cardiovascular: [S1S2 reg], [no murmur], [positive posterior tibial pulse bilateral], Lungs: [CTA bilateral], [no rhonchi, no rales] , [no accessory muscle use] Abdominal: Distended and tympanic, [ nontender to palpation], [no guarding], [no appreciable organomegaly] Ext: [no gross muscle atrophy], [no edema], [no contractures], R BKA Neuro: [ CN II-XI grossly intact], [no focal neuro deficits] Psych: [Alert], [oriented], [appropriate affect] Physical Exam Vitals: Vital Signs Temp Pulse Pulse Resp BP BP Pulse Ox 09/03/21 19:41 98.3 F 107 H 18 138/83 94 L 09/03/21 17:57 99.4 F 09/03/21 17:18 108 H 22 139/90 96 09/03/21 14:33 110 H 20 133/83 97 09/03/21 12:35 99.8 F H 114 H 18 122/74 94 L Intake and Output 09/03/21 09/03/21 09/04/21 14:59 22:59 06:59 Intake Total 120 Balance 120 Intake: Oral 120 Other: Voiding Method Toilet Bedside Commode # Voids 1 Weight 72.575 kg 72.575 kg Results CBC & Chem 7: 09/03/21 12:57 09/03/21 21:12 Labs: Abnormal Lab Results - Last 24 Hours (Table) 09/03/21 09/03/21 09/03/21 Range/Units 12:53 12:57 12:57 RDW 16.3 H (11.5-15.5) % Sodium (137-145) mmol/L Potassium (3.5-5.1) mmol/L Carbon Dioxide (22-30) mmol/L BUN (7-17) mg/dL Glucose (74-99) mg/dL POC Glucose (mg/dL) 180 H (75-99) mg/dL Plasma Lactic Acid Al (0.7-2.0) mmol/L Calcium (8.4-10.2) mg/dL Alkaline Phosphatase (38-126) U/L Albumin (3.5-5.0) g/dL Urine Protein Trace H (Negative) 09/03/21 09/03/21 09/03/21 Range/Units 12:57 18:36 21:12 RDW (11.5-15.5) % Sodium 136 L 135 L (137-145) mmol/L Potassium 2.6 L* 2.8 L (3.5-5.1) mmol/L Carbon Dioxide 20 L (22-30) mmol/L BUN 6 L (7-17) mg/dL Glucose 178 H 194 H (74-99) mg/dL POC Glucose (mg/dL) 144 H (75-99) mg/dL Plasma Lactic Acid Al (0.7-2.0) mmol/L Calcium 8.1 L (8.4-10.2) mg/dL Alkaline Phosphatase 238 H (38-126) U/L Albumin 3.1 L (3.5-5.0) g/dL Urine Protein (Negative) 09/03/21 Range/Units 21:12 RDW (11.5-15.5) % Sodium (137-145) mmol/L Potassium (3.5-5.1) mmol/L Carbon Dioxide (22-30) mmol/L BUN (7-17) mg/dL Glucose (74-99) mg/dL POC Glucose (mg/dL) (75-99) mg/dL Plasma Lactic Acid Al 3.2 H* (0.7-2.0) mmol/L Calcium (8.4-10.2) mg/dL Alkaline Phosphatase (38-126) U/L Albumin (3.5-5.0) g/dL Urine Protein (Negative)
[2021-09-03 18:40] LABS: Glucose,Whole Blood 144 mg/dL (75-99)
[2021-09-03] MEDS: SODIUM CHLORIDE 0.9% 1,000 ML IV SCH ×2 (19:21→23:49)
[2021-09-03] MEDS: PREGABALIN 100 MG CAP PO SCH (20:40)
[2021-09-03 21:48] LABS: African American GFR (CKD) 81 (>60 ml/min/1.73 sqM); Anion Gap 10 mmol/L; Blood Urea Nitrogen 6 mg/dL (7-17); Calcium 8.1 mg/dL (8.4-10.2); Carbon Dioxide 20 mmol/L (22-30); Chloride 105 mmol/L (98-107); Glucose 194 mg/dL (74-99); Non-African American GFR(CKD) 71 (>60 ml/min/1.73 sqM); Potassium 2.8 mmol/L (3.5-5.1); Sodium 135 mmol/L (137-145)
--- NOTE | 2021-09-04 03:08 | CT ---
EXAMINATION TYPE: CT abdomen pelvis wo con DATE OF EXAM: 09/04/2021 COMPARISON: 04/16/2021 and 07/18/2020. HISTORY: pain CT DLP: 918.10 mGycm Automated exposure control for dose reduction was used. Images obtained from the diaphragm to the floor the pelvis with no contrast. There is some mild atelectasis at the lung bases. There are old multiple right-sided healed rib fract ures. There is no pleural effusion. Heart size is normal. There is no pericardial effusion. There is some minimal fatty infiltration of the liver. Spleen is intact. Stomach is intact. There is no sign of a pancreatic mass. There is apparent cholecystectomy. There is no adrenal mass. Kidneys have normal size. There are numerous bilateral renal calculi. These measure up to 5 mm. There is no hydronephrosis. Ureters are not dilated. There is no retroperitoneal adenopathy. Bladder distends smoothly. There is no inguinal hernia. There is no free fluid in the pe lvis. There is no sign of a pelvic mass. There is gas distended sigmoid colon. There is no mesenteric edema. There is no ascites or free air. Appendix not seen. There is no sign of thickened appendix. I do not see evidence for a bowel obstruction. The lumbar vertebra have fairly normal alignment. There is mild compression deformity of L4 L3 and L1 vertebra up to almost 50%. There is osteopenia. The bony pelvis appears intact. The hip joint spaces are slightly narrowed. Sacroiliac joints are intact. IMPRESSION: Multiple bilateral nonobstructing renal calculi. Gaseous distention of the large bowel without obstructing lesion seen. This likely relates to some la rge bowel ileus. No free air. Multiple lumbar compression fractures. Fractures appear similar to old exam. No evidence of a new fra cture. There is improvement in the fatty infiltration of the liver compared to old exam. There is some interstitial infiltrate and atelectasis at the lung bases which is mostly new compared to old exam.
[2021-09-04 07:05] LABS: Glucose,Whole Blood 134 mg/dL (75-99)
[2021-09-04] MEDS: SIMETHICONE 80 MG CHEWABLE PO SCH ×4 (08:43→22:42)
[2021-09-04] MEDS: FOLIC ACID 1 MG TAB PO SCH (08:44)
[2021-09-04] MEDS: ENOXAPARIN 40 MG/0.4 ML SYRINGE SQ SCH (08:44)
[2021-09-04] MEDS: DULoxetine HCL 60 MG CAPSULE.DR PO SCH (08:44)
[2021-09-04] MEDS: PANTOPRAZOLE 40 MG TABLET PO SCH (08:44)
[2021-09-04] MEDS: SODIUM CHLORIDE 0.9% 1,000 ML IV SCH ×2 (08:45→16:59)
[2021-09-04] MEDS: PREGABALIN 100 MG CAP PO SCH ×2 (08:56→20:38)
[2021-09-04 09:04] LABS: Basophils # (A) 0.04 X 10*3/uL (0.00-0.10); Basophils % (A) 0.8 %; Eosinophils # (A) 0.09 X 10*3/uL (0.04-0.35); Eosinophils % (A) 1.9 %; HCT 38.2 % (37.2-46.3); Lymphocytes # (A) 1.91 X 10*3/uL (0.90-5.00); Lymphocytes % (A) 40.1 %; MCH 25.4 pg (27.0-32.0); MCHC 28.8 g/dL (32.0-37.0); MCV 88.2 fL (80.0-97.0); Mean Platelet Volume 10.5 fL (9.5-12.2); Monocytes # (A) 0.34 X 10*3/uL (0.20-1.00); Monocytes % (A) 7.1 %; Neutrophils # (A) 2.35 X 10*3/uL (1.80-7.70); Neutrophils % (A) 49.5 %; Platelet Count 107 X 10*3/uL (140-440); RBC 4.33 X 10*6/uL (4.10-5.20); RDW 16.9 % (11.5-14.5); WBC 4.76 X 10*3/uL (4.50-10.00)
[2021-09-04 10:19] LABS: African American GFR (CKD) 81.1 (60.0-200.0); Albumin 2.5 g/dL (3.8-4.9); Albumin/Globulin Ratio 0.93 (1.60-3.17); Anion Gap 11.7 mmol/L (4.00-12.00); BUN/Creat Ratio 5.78 Ratio (12.00-20.00); Blood Urea Nitrogen 5.2 mg/dL (9.0-27.0); Calcium 7.9 mg/dL (8.7-10.3); Carbon Dioxide 21.3 mmol/L (21.6-31.8); Globulin 2.7 g/dL (1.6-3.3); Potassium 2.5 mmol/L (3.5-5.5); Total Bilirubin 0.3 mg/dL (0.30-1.20); Total Protein 5.2 g/dL (6.2-8.2)
[2021-09-04] MEDS ORDERED: POTASSIUM CHLORIDE ER 20 MEQ TAB.ER PO STA (11:15)
[2021-09-04 11:31] LABS: Glucose,Whole Blood 220 mg/dL (75-99)
[2021-09-04] MEDS: POTASSIUM CHLORIDE 10 MEQ in WATER FOR INJECTION 1 100ML.BAG IVPB SCH ×4 (11:34→14:49)
[2021-09-04] MEDS: INSULIN ASPART (NovoLOG) 100 UNIT/ML VIAL SQ SCH ×3 (12:47→20:38)
--- NOTE | 2021-09-04 15:16 | P.PN ---
Subjective Progress Note Date: 09/04/21 History of Presenting Illness: Patient is a very pleasant 61-year-old female with a past medical history of rheumatoid arthritis and neuropathy. She presented to the emergency department with a chief complaint of persistent nausea, chills, and anorexia 5 days a ccompanied by moderate abdominal bloating and distention. Upon arrival to the emergency department patient was found to be tachycardic with heart rate of 114 along with a low-grade temp of 99.8F orally. EKG showing sinus tachycardia at 112 bpm with periodic PVC showing no T-wave or ST abnormalities. A chest x-ray was completed negative for acute cardiopulmonary process. KUB negative for acute process showing gas and fecal material and nondistended colon with no evidence of dilation and/or obstruction revealing a nonspecific bowel gas pattern. Labs completed with CBC unremarkable and CMP with hypokalemia with potassium of 2.6 and elevated alkaline phosphatase of 238 otherwise normal liver function and pancreatic enzymes and labs showing no further significant abnormalities. Urinalysis negative for infection. Covid PCR negative. Patient admitted under our services for medical observation secondary to dehydration and intractable nausea. Physical exam: Patient was again seen and evaluated at bedside this morning reports continued abdominal distention and nausea but states she has noticed some improvement and has been passing flatus. Patient tolerating a clear liquid diet and we will advance to full liquid diet. Simethicone 160 mg continues to be scheduled for times daily and seems to be improving with distention. Patient continues to deny having any episodes of vomiting or abdominal pain/discomfort. A computed tomography scan without contrast was completed overnight which showed multiple bilateral nonobstructing renal calculi, gaseous distention of the large bowel without obstructing lesions seen likely relates to some large bowel ileus with no free air, multiple lumbar compression fractures similar to previous exams, and reported improvement in the fatty infiltration of the liver. We will continue with hydration, advance diet as patient tolerates, and continue scheduled simethicone and add on sennosides/docusate twice daily. Plan for likely discharge tomorrow a.m. Pending clinical course. Potassium again critically low at 2.5 oral and IV replacement ordered. Alkaline phosphatase is improving. Vital signs reviewed and stable. General: Nontoxic, no distress and appears stated age. Morbidly obese. Derm: Skin warm and dry, normal coloration for ethnicity. Head: Atraumatic, normocephalic and symmetric. Eyes: EOMs intact, no lid lag, and anicteric sclera Mouth: no lip lesions, mucus membranes moist Cardiovascular: regular rate and rhythm with normal S1S2, no murmur, positive posterior tibial pulses bilaterally, and cap refill < 2 seconds. Lungs: Respirations even, regular, and unlabored on room air. Lungs CTA bilaterally, no rhonchi, no rales, no wheezing, and no accessory muscle usage. Abdominal: Bowel sounds hyperactive in all 4 quadrants. Abdomen soft distended, nontender to palpation, no guarding, no appreciable organomegaly Ext: ROM intact. No gross muscle atrophy, no edema, no contractures Neuro: Speech clear, face symmetrical and CN II-XII grossly intact with no noted focal neuro deficits Psych: Alert and oriented to person, place, time, and situation. Appropriate and pleasant affect. Assessment and Plan of Care: Intractable nausea without vomiting accompanied by anorexia and abdominal bloating, improving Dehydration Elevated alkaline phosphatase, improving -Continue Hydration with IV fluids. -Supportive management, antiemetics with Compazine. -Simethicone 4 times daily -Sennosides/docusate twice daily -CT abdomen and pelvis without contrast was completed overnight which showed multiple bilateral nonobstructing renal calculi, gaseous distention of the large bowel without obstructing lesions seen likely relates to some large bowel ileus with no free air, multiple lumbar compression fractures similar to previous exams, and reported improvement in the fatty infiltration of the liver. -Continue close monitoring with repeat abdominal labs. Hypokalemia -Again critical potassium of 2.5, replacement with oral and IV. Telemetry monitoring We will continue to monitor with repeat a.m. labs. Type II [id number] diabetes mellitus -Hold glimepiride and place patient on glycemic protocol with NovoLog sliding scale. Diabetic neuropathy -Continue daily medication regimen with Lyrica. Rheumatoid arthritis -Hold Tocilizumab. -Symptomatic care and pain management. CODE STATUS: Full code DVT prophylaxis: Heparin Discussed with: Patient, patient has been, and RN Anticipated discharge date:1-[address]: Home A total of 45 minutes was spent on the care of this complex patient more than 50% of the time was spent in counseling and care coordination. Objective - Vital Signs Vital signs: Vital Signs Temp 98.5 F 09/04/21 07:00 Pulse 105 H 09/04/21 07:00 Resp 18 09/04/21 07:00 BP 103/68 09/04/21 07:00 Pulse Ox 93 L 09/04/21 07:00 Intake & Output 09/03/21 09/04/21 09/04/21 18:59 06:59 18:59 Intake Total 120 Balance 120 Weight 72.575 kg 72.575 kg Intake: Oral 120 Other: Voiding Method Toilet Bedside Commode Bedside Commode # Voids 0 3 # Bowel Movements 1 - Labs CBC & Chem 7: 09/04/21 05:56 09/04/21 05:56 Labs: Abnormal Lab Results - Last 24 Hours (Table) 09/03/21 09/03/21 09/03/21 Range/Units 18:36 21:12 21:12 Hgb (12.0-15.0) g/dL MCH (27.0-32.0) pg MCHC (32.0-37.0) g/dL RDW (11.5-14.5) % Plt Count (140-440) X 10*3/uL Sodium 135 L (137-145) mmol/L Potassium 2.8 L (3.5-5.1) mmol/L Chloride (96-109) mmol/L Carbon Dioxide 20 L (22-30) mmol/L BUN 6 L (7-17) mg/dL BUN/Creatinine Ratio (12.00-20.00) Ratio Glucose 194 H (74-99) mg/dL POC Glucose (mg/dL) 144 H (75-99) mg/dL Plasma Lactic Acid Al 3.2 H* (0.7-2.0) mmol/L Calcium 8.1 L (8.4-10.2) mg/dL Alkaline Phosphatase (41-126) U/L Total Protein (6.2-8.2) g/dL Albumin (3.8-4.9) g/dL Albumin/Globulin Ratio (1.60-3.17) g/dL 09/04/21 09/04/21 09/04/21 Range/Units 05:56 05:56 07:03 Hgb 11.0 L (12.0-15.0) g/dL MCH 25.4 L (27.0-32.0) pg MCHC 28.8 L (32.0-37.0) g/dL RDW 16.9 H (11.5-14.5) % Plt Count 107 L (140-440) X 10*3/uL Sodium (137-145) mmol/L Potassium 2.5 L* (3.5-5.1) mmol/L Chloride 111 H (96-109) mmol/L Carbon Dioxide 21.3 L (22-30) mmol/L BUN 5.2 L (7-17) mg/dL BUN/Creatinine Ratio 5.78 L (12.00-20.00) Ratio Glucose 139 H (74-99) mg/dL POC Glucose (mg/dL) 134 H (75-99) mg/dL Plasma Lactic Acid Al (0.7-2.0) mmol/L Calcium 7.9 L (8.4-10.2) mg/dL Alkaline Phosphatase 190 H (41-126) U/L Total Protein 5.2 L (6.2-8.2) g/dL Albumin 2.5 L (3.8-4.9) g/dL Albumin/Globulin Ratio 0.93 L (1.60-3.17) g/dL 09/04/21 Range/Units 11:28 Hgb (12.0-15.0) g/dL MCH (27.0-32.0) pg MCHC (32.0-37.0) g/dL RDW (11.5-14.5) % Plt Count (140-440) X 10*3/uL Sodium (137-145) mmol/L Potassium (3.5-5.1) mmol/L Chloride (96-109) mmol/L Carbon Dioxide (22-30) mmol/L BUN (7-17) mg/dL BUN/Creatinine Ratio (12.00-20.00) Ratio Glucose (74-99) mg/dL POC Glucose (mg/dL) 220 H (75-99) mg/dL Plasma Lactic Acid Al (0.7-2.0) mmol/L Calcium (8.4-10.2) mg/dL Alkaline Phosphatase (41-126) U/L Total Protein (6.2-8.2) g/dL Albumin (3.8-4.9) g/dL Albumin/Globulin Ratio (1.60-3.17) g/dL
[2021-09-04] MEDS: SENNOSIDES-DOCUSATE SODIUM 1 EACH TAB PO SCH (16:57)
[2021-09-04 17:01] LABS: Glucose,Whole Blood 90 mg/dL (75-99)
[2021-09-04 20:29] LABS: Glucose,Whole Blood 167 mg/dL (75-99)
[2021-09-05] MEDS: SENNOSIDES-DOCUSATE SODIUM 1 EACH TAB PO SCH ×3 (00:05→21:49)
[2021-09-05] MEDS: SODIUM CHLORIDE 0.9% 1,000 ML IV SCH ×4 (01:10→21:52)
[2021-09-05 08:05] LABS: Glucose,Whole Blood 110 mg/dL (75-99)
[2021-09-05] MEDS: INSULIN ASPART (NovoLOG) 100 UNIT/ML VIAL SQ SCH ×4 (08:06→21:49)
[2021-09-05] MEDS: SIMETHICONE 80 MG CHEWABLE PO SCH ×4 (08:11→21:47)
[2021-09-05] MEDS: ENOXAPARIN 40 MG/0.4 ML SYRINGE SQ SCH (08:11)
[2021-09-05] MEDS: PANTOPRAZOLE 40 MG TABLET PO SCH (08:11)
[2021-09-05] MEDS: DULoxetine HCL 60 MG CAPSULE.DR PO SCH (08:11)
[2021-09-05] MEDS: FOLIC ACID 1 MG TAB PO SCH (08:11)
[2021-09-05] MEDS: PREGABALIN 100 MG CAP PO SCH ×2 (08:11→21:47)
[2021-09-05 10:25] LABS: African American GFR (CKD) 97.5 (60.0-200.0); BUN/Creat Ratio 5.19 Ratio (12.00-20.00); Calcium 7.9 mg/dL (8.7-10.3); Carbon Dioxide 20.2 mmol/L (21.6-31.8); Magnesium 1.9 mg/dL (1.5-2.4); Non-African American GFR(CKD) 84.1 (60.0-200.0); Potassium 3.1 mmol/L (3.5-5.5)
[2021-09-05 10:50] LABS: HCT 36.6 % (37.2-46.3); HGB 10.1 g/dL (12.0-15.0); MCH 24.9 pg (27.0-32.0); MCHC 27.6 g/dL (32.0-37.0); MCV 90.4 fL (80.0-97.0); Platelet Count 94 X 10*3/uL (140-440); RBC 4.05 X 10*6/uL (4.10-5.20); RDW 16.8 % (11.5-14.5); WBC 2.76 X 10*3/uL (4.50-10.00)
[2021-09-05 12:10] LABS: Glucose,Whole Blood 236 mg/dL (75-99)
[2021-09-05] MEDS ORDERED: POTASSIUM CHLORIDE ER 20 MEQ TAB.ER PO STA (12:38)
[2021-09-05] MEDS: POTASSIUM CHLORIDE 10 MEQ in WATER FOR INJECTION 1 100ML.BAG IVPB SCH ×2 (12:48→15:07)
--- NOTE | 2021-09-05 16:00 | P.PN ---
Subjective Progress Note Date: 09/05/21 History of Presenting Illness: Patient is a very pleasant 61-year-old female with a past medical history of rheumatoid arthritis and neuropathy. She presented to the emergency department with a chief complaint of persistent nausea, chills, and anorexia 5 days a ccompanied by moderate abdominal bloating and distention. Upon arrival to the emergency department patient was found to be tachycardic with heart rate of 114 along with a low-grade temp of 99.8F orally. EKG showing sinus tachycardia at 112 bpm with periodic PVC showing no T-wave or ST abnormalities. A chest x-ray was completed negative for acute cardiopulmonary process. KUB negative for acute process showing gas and fecal material and nondistended colon with no evidence of dilation and/or obstruction revealing a nonspecific bowel gas pattern. Labs completed with CBC unremarkable and CMP with hypokalemia with potassium of 2.6 and elevated alkaline phosphatase of 238 otherwise normal liver function and pancreatic enzymes and labs showing no further significant abnormalities. Urinalysis negative for infection. Covid PCR negative. Patient admitted under our services for medical observation secondary to dehydration and intractable nausea. Physical exam: Patient was again seen and evaluated at bedside this morning. She reports improvement of abdominal pain and has been passing flatus as well as reports of multiple bowel movements since initiation of Dulcolax. Initial plan was for discharge if improvement today however upon review of morning labs patient now having new onset pancytopenia with WBC count of 2.76, hemoglobin 10.1, and platelet count of 94. Hypokalemia is improving and currently 3.1. Patient also with worsening chloride of 112 and CO2 20.2. Potassium replaced, orders placed for consult to hematology/oncology and we will continue to monitor. Patient diet advanced to heart healthy diet and we will monitor how she tolerates. Pancytopenia and persistent hypokalemia is of unclear etiology, suspect EtOH use/abuse. Patient admits to drinking a few times per week but unclear/not specific with exact amounts. Vital signs reviewed and stable. General: Nontoxic, no distress and appears stated age. Morbidly obese. Derm: Skin warm and dry, normal coloration for ethnicity. Head: Atraumatic, normocephalic and symmetric. Eyes: EOMs intact, no lid lag, and anicteric sclera Mouth: no lip lesions, mucus membranes moist Cardiovascular: regular rate and rhythm with normal S1S2, no murmur, positive posterior tibial pulses bilaterally, and cap refill < 2 seconds. Lungs: Respirations even, regular, and unlabored on room air. Lungs CTA bilaterally, no rhonchi, no rales, no wheezing, and no accessory muscle usage. Abdominal: Bowel sounds hyperactive in all 4 quadrants. Abdomen soft distended, nontender to palpation, no guarding, no appreciable organomegaly Ext: ROM intact. No gross muscle atrophy, no edema, no contractures Neuro: Speech clear, face symmetrical and CN II-XII grossly intact with no noted focal neuro deficits Psych: Alert and oriented to person, place, time, and situation. Appropriate and pleasant affect. Assessment and Plan of Care: Intractable nausea without vomiting accompanied by anorexia and abdominal bloating, improved Dehydration Elevated alkaline phosphatase, improving -Continue Hydration with IV fluids. -Supportive management, antiemetics with Compazine. -Simethicone 4 times daily -Sennosides/docusate twice daily -CT abdomen and pelvis without contrast was completed overnight which showed multiple bilateral nonobstructing renal calculi, gaseous distention of the large bowel without obstructing lesions seen likely relates to some large bowel ileus with no free air, multiple lumbar compression fractures similar to previous exams, and reported improvement in the fatty infiltration of the liver. -Continue close monitoring with repeat abdominal labs. Hypokalemia -K+ 3.1, replaced Telemetry monitoring We will continue to monitor with repeat a.m. labs. Pancytopenia, unclear etiology Unclear etiology suspect EtOH use/abuse, patient admits to drinking a few times a week but not specific with exact amounts. Consult hematology Continue to monitor with repeat a.m. labs Type II [id number] diabetes mellitus -Hold glimepiride and place patient on glycemic protocol with NovoLog sliding scale. Diabetic neuropathy -Continue daily medication regimen with Lyrica. Rheumatoid arthritis -Hold Tocilizumab. -Symptomatic care and pain management. CODE STATUS: Full code DVT prophylaxis: Heparin Discussed with: Patient, patient has been, and RN Anticipated discharge date:1-[address]: Home A total of 45 minutes was spent on the care of this complex patient more than 50% of the time was spent in counseling and care coordination. Objective - Vital Signs Vital signs: Vital Signs Temp 97.7 F 09/05/21 08:00 Pulse 93 09/05/21 08:00 Resp 15 10/24/21 08:00 BP 110/71 09/05/21 08:00 Pulse Ox 97 09/05/21 08:00 Intake & Output 09/04/21 09/05/21 09/05/21 18:59 06:59 18:59 Intake Total 900 220 Balance 900 220 Intake: Oral 900 220 Other: Voiding Method Bedside Commode Bedside Commode Bedside Commode # Voids 2 # Bowel Movements 1 1 - Labs CBC & Chem 7: 09/05/21 06:48 09/05/21 06:48 Labs: Abnormal Lab Results - Last 24 Hours (Table) 09/04/21 09/05/21 09/05/21 Range/Units 20:28 06:48 06:48 WBC 2.76 L (4.50-10.00) X 10*3/uL RBC 4.05 L (4.10-5.20) X 10*6/uL Hgb 10.1 L (12.0-15.0) g/dL Hct 36.6 L (37.2-46.3) % MCH 24.9 L (27.0-32.0) pg MCHC 27.6 L (32.0-37.0) g/dL RDW 16.8 H (11.5-14.5) % Plt Count 94 L (140-440) X 10*3/uL Immature Plt Fraction 15.4 H (1.1-6.1) % Potassium 3.1 L (3.5-5.5) mmol/L Chloride 112 H (96-109) mmol/L Carbon Dioxide 20.2 L (21.6-31.8) mmol/L BUN 4.0 L (9.0-27.0) mg/dL BUN/Creatinine Ratio 5.19 L (12.00-20.00) Ratio Glucose 122 H (70-110) mg/dL POC Glucose (mg/dL) 167 H (75-99) mg/dL Calcium 7.9 L (8.7-10.3) mg/dL 09/05/21 09/05/21 Range/Units 08:03 12:08 WBC (4.50-10.00) X 10*3/uL RBC (4.10-5.20) X 10*6/uL Hgb (12.0-15.0) g/dL Hct (37.2-46.3) % MCH (27.0-32.0) pg MCHC (32.0-37.0) g/dL RDW (11.5-14.5) % Plt Count (140-440) X 10*3/uL Immature Plt Fraction (1.1-6.1) % Potassium (3.5-5.5) mmol/L Chloride (96-109) mmol/L Carbon Dioxide (21.6-31.8) mmol/L BUN (9.0-27.0) mg/dL BUN/Creatinine Ratio (12.00-20.00) Ratio Glucose (70-110) mg/dL POC Glucose (mg/dL) 110 H 236 H (75-99) mg/dL Calcium (8.7-10.3) mg/dL
[2021-09-05 16:54] LABS: Glucose,Whole Blood 187 mg/dL (75-99)
--- NOTE | 2021-09-05 19:23 | CONS ---
CONSULTATION DATE OF SERVICE: 09/05/2021 PURPOSE FOR CONSULTATION: Evaluate for depression. HISTORY OF PRESENTING ILLNESS: The patient is a 61-year-old female. She was admitted to the medical floor for dehydration and intractable nausea. She was found to have elevated alkaline phosphatase and hypokalemia. She also has pancytopenia, type 2 cyj-vseinrl-xzygsduiz diabetes, diabetic neuropathy and rheumatoid arthritis. The patient was noted to have issues with depression. Patient was indicating that she has been struggling with depression of late. She also said she had a past history of depression some years back and was on medicines for that, though she could not remember the name. She currently is on Cymbalta 60 mg a day and Abilify 20 mg a day, which were home medications for her. There is no information available in regard to recent or past treatment for depression. Patient lives with her . She says a big factor that stresses her is that she lost her lower right leg due to infection. She has a wheelchair. She does say that she has a prosthesis, though it has been difficult for her to ambulate and manage with the prosthesis. She said that the loss of her leg has been something that she has been struggling with ever since then. She said that she lives with her and that her has been doing fairly well. She does not really identify other significant stress issues of late. She does not indicate any issues of thought disorder. She described some anxiety. She is also prescribed Compazine, though it is not clear that she has been receiving any Compazine so far. She notes she has been having some trouble falling asleep. Her appetite has been has been down. Energy has been down. MENTAL STATUS EXAM: Patient was lying in bed. She gave fairly good eye contact. She responded to questions appropriately. Her thoughts were clear. She had a quiet manner. She was able to talk about depression she was having. She did show some range of appropriate emotions. She smiled a little. She had a friendly manner. Her mood was dysphoric. She seemed moderately distressed. There was no indication of thought disorder. She denied thoughts of harm. Cognition was clear. ASSESSMENT: The patient is diagnosed with major depression. It is unclear whether or not she has gotten much benefit from her current psychotropics. I will start the patient on Ritalin. Ritalin has the benefit of often showing an early response in regard to depression. Also, Ritalin tends to have limited medication interactions, and with its short half-life, it is fairly uncomplicated to work with. I will reduce Abilify from 20 mg a day down to 10 mg a day. It is not clear that she has had any benefit to the Abilify. She may be getting some EPS symptoms from Abilify. It is noteworthy that she is also on Compazine, which is a phenothiazine and also puts her at risk for risk for extrapyramidal side effects. That will need to be monitored closely. I would consider tapering her off of Abilify altogether. Abilify does have an indication in low doses as an augmentation for antidepressants. There might be benefit for considering her to go up on her Cymbalta, though at this point Ritalin may show a more rapid response in terms of depression with keeping side effects minimal. I will start her on a 5 mg dose early in the evening around 6:30. Tomorrow she will start 10 mg in the morning and 5 mg at 1. I will continue to follow. MMODL / IJN: [id number] /
[2021-09-05] MEDS ORDERED: METHYLPHENIDATE HCL 5 MG TAB PO ONE (19:30)
[2021-09-05 20:17] LABS: Glucose,Whole Blood 161 mg/dL (75-99)
[2021-09-05] MEDS ORDERED: ARIPiprazole 10 MG TAB PO SCH (21:00)
[2021-09-06] MEDS: SODIUM CHLORIDE 0.9% 1,000 ML IV SCH ×2 (05:12→15:45)
[2021-09-06 07:07] LABS: Glucose,Whole Blood 109 mg/dL (75-99)
[2021-09-06] MEDS ORDERED: METHYLPHENIDATE HCL 10 MG TAB PO SCH (07:30)
[2021-09-06 07:36] VITALS: BP 108/68; PULSE 97; RESP 16; TEMP 97.7
[2021-09-06] MEDS: INSULIN ASPART (NovoLOG) 100 UNIT/ML VIAL SQ SCH ×2 (08:13→14:52)
[2021-09-06] MEDS: ENOXAPARIN 40 MG/0.4 ML SYRINGE SQ SCH (08:13)
[2021-09-06] MEDS: PREGABALIN 100 MG CAP PO SCH (08:14)
[2021-09-06] MEDS: SIMETHICONE 80 MG CHEWABLE PO SCH ×2 (08:14→14:57)
[2021-09-06] MEDS: DULoxetine HCL 60 MG CAPSULE.DR PO SCH (08:14)
[2021-09-06] MEDS: FOLIC ACID 1 MG TAB PO SCH (08:14)
[2021-09-06] MEDS: SENNOSIDES-DOCUSATE SODIUM 1 EACH TAB PO SCH (08:14)
[2021-09-06] MEDS: PANTOPRAZOLE 40 MG TABLET PO SCH (08:14)
--- NOTE | 2021-09-06 09:15 | P.CONS ---
History of Present Illness - Reason for Consult Consult date: 09/06/21 Pancytopenia Requesting physician: Allan Rios - Chief Complaint N/V/D/and Fever - History of Present Illness Keren is a 61 year old patient with known Rheumatoid Arthritis, who presented for nausea and fever. Since admission she has became mildly pancytopenic therefore we have been asked to further evaluate. She does take Tocilizumab for her rheumatoid arthritis. She is a poor historian and unsure what other medications she takes for RA. She follows with Dr. Cool Review of Systems All systems: negative Constitutional: Reports as per HPI Past Medical History Past Medical History: Diabetes Mellitus, GERD/Reflux, Hypertension, Osteoarthritis (OA), Rheumatoid Arthritis (RA), Vascular Disorder Additional Past Medical History / Comment(s): neuropathy ,Vitiligo, Raynaud's ,peripheral neuropathy. 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 History of Any Multi-Drug Resistant Organisms: MRSA Year Discovered:: 06/11/12 MDRO Source:: lt axilla Past Surgical History: Appendectomy, Section, Joint Replacement, Orthopedic Surgery, Tonsillectomy, Tubal Ligation Additional Past Surgical History / Comment(s): right shoulder replacement, right leg BKA amputation. All teeth removed. Past Anesthesia/Blood Transfusion Reactions: No Reported Reaction Past Psychological History: Depression Smoking Status: Former smoker Past Alcohol Use History: None Reported Past Drug Use History: None Reported - Past Family History Mother Family Medical History: No Reported History, Diabetes Mellitus, Hyperlipidemia, Hypertension Father Family Medical History: Diabetes Mellitus, Hypertension Sister(s) Family Medical History: No Reported History Son(s) Family Medical History: No Reported History Medications and Allergies Home Medications Medication Instructions Recorded Confirmed Type ARIPiprazole [Abilify] 20 mg PO HS 07/09/19 09/03/21 History Omeprazole 20 mg PO DAILY 03/31/20 09/03/21 History Folic Acid 1 mg PO DAILY 07/18/20 09/03/21 History DULoxetine HCL [Cymbalta] 60 mg PO DAILY 05/16/21 09/03/21 History Pregabalin [Lyrica] 300 mg PO BID 05/16/21 09/03/21 History Glimepiride [Amaryl] 1 mg PO AC-BRKFST 09/03/21 09/03/21 History Tocilizumab [Actemra] 0 mg SQ Q14D 09/03/21 09/03/21 History Simethicone Chew [Mylicon Chew] 160 mg PO QID 30 Days #240 tab 09/06/21 Rx Allergies Allergy/AdvReac Type Severity Reaction Status Date / Time No Known Allergies Allergy Verified 09/03/21 13:45 Physical Exam Vitals: Vital Signs Temp Pulse Resp BP BP Pulse Ox 09/06/21 07:40 97 16 09/06/21 07:35 97.7 F 97 16 108/68 95 09/06/21 00:38 98.4 F 101 H 17 121/78 93 L 09/05/21 19:33 16 09/05/21 18:55 98.5 F 105 H 17 112/61 96 09/05/21 14:00 98.4 F 107 H 16 113/74 96 Intake and Output 09/05/21 09/06/21 09/06/21 22:59 06:59 14:59 Intake Total 1240 Output Total 4 1 Balance 1236 -1 Intake: IV 1240 Potassium Chloride 10 meq 200 In Water For Injection 1 100ml.bag @ 100 mls/hr IVPB Q1H [facility] Rx#: [id number] Sodium Chloride 0.9% 1, 1040 000 ml @ 130 mls/hr IV . Q7H42M [facility] Rx#:[id number] Output: Urine 2 Stool 2 1 Other: Voiding Method Bedside Commode Bedside Commode # Voids 2 3 1 # Bowel Movements 1 1 - Constitutional General appearance: cooperative - EENT Eyes: EOMI ENT: NA/AT - Neck Neck: normal ROM - Respiratory Respiratory: bilateral: diminished - Cardiovascular Rhythm: regularly irregular leg Peripheral Edema: right: Other (BKJA) - Gastrointestinal General gastrointestinal: distended, soft - Integumentary Integumentary: pale - Musculoskeletal Musculoskeletal: generalized weakness - Psychiatric poor historian Psychiatric: A&O x's 3 Results CBC & Chem 7: 09/06/21 10:41 09/06/21 10:41 Labs: Abnormal Lab Results - Last 24 Hours (Table) 09/05/21 09/05/21 09/05/21 Range/Units 06:48 06:48 12:08 WBC 2.76 L (4.50-10.00) X 10*3/uL RBC 4.05 L (4.10-5.20) X 10*6/uL Hgb 10.1 L (12.0-15.0) g/dL Hct 36.6 L (37.2-46.3) % MCH 24.9 L (27.0-32.0) pg MCHC 27.6 L (32.0-37.0) g/dL RDW 16.8 H (11.5-14.5) % Plt Count 94 L (140-440) X 10*3/uL Immature Plt Fraction 15.4 H (1.1-6.1) % Potassium 3.1 L (3.5-5.5) mmol/L Chloride 112 H (96-109) mmol/L Carbon Dioxide 20.2 L (21.6-31.8) mmol/L BUN 4.0 L (9.0-27.0) mg/dL BUN/Creatinine Ratio 5.19 L (12.00-20.00) Ratio Glucose 122 H (70-110) mg/dL POC Glucose (mg/dL) 236 H (75-99) mg/dL Calcium 7.9 L (8.7-10.3) mg/dL 09/05/21 09/05/21 09/06/21 Range/Units 16:53 20:15 07:05 WBC (4.50-10.00) X 10*3/uL RBC (4.10-5.20) X 10*6/uL Hgb (12.0-15.0) g/dL Hct (37.2-46.3) % MCH (27.0-32.0) pg MCHC (32.0-37.0) g/dL RDW (11.5-14.5) % Plt Count (140-440) X 10*3/uL Immature Plt Fraction (1.1-6.1) % Potassium (3.5-5.5) mmol/L Chloride (96-109) mmol/L Carbon Dioxide (21.6-31.8) mmol/L BUN (9.0-27.0) mg/dL BUN/Creatinine Ratio (12.00-20.00) Ratio Glucose (70-110) mg/dL POC Glucose (mg/dL) 187 H 161 H 109 H (75-99) mg/dL Calcium (8.7-10.3) mg/dL Assessment and Plan (1) Pancytopenia Status: Acute Code(s): D61.818 - OTHER PANCYTOPENIA SNOMED Code(s): 124453211 (2) Dehydration Status: Acute Code(s): E86.0 - DEHYDRATION SNOMED Code(s): 98165763 (3) Hypokalemia Status: Acute Code(s): E87.6 - HYPOKALEMIA SNOMED Code(s): 54222396 (4) Acute febrile illness Status: Acute Code(s): R50.9 - FEVER, UNSPECIFIED SNOMED Code(s): 214808469 Plan: Will further assess pancytopenia work-up Likely resulted from RA medications and immunosuppressants exaccerbated with an acute inflammatory/infecious cause Patient may follow up with Dr. Turner in 4 weeks to ensure resolution of counts and review ordered labs Physician attest: i have completed the full history and physical and agree with above dictation, dictated as a scribe.
[2021-09-06 11:40] LABS: Anisocytosis Slight; Basophils % (A) 1 %; Eosinophils # (A) 0.1 k/uL (0-0.7); Eosinophils % (A) 2 %; HCT 36.7 % (34.0-46.0); Hypochromasia Marked; Lymphocytes % (A) 41 %; MCH 26.1 pg (25.0-35.0); MCHC 29.6 g/dL (31.0-37.0); Mean Platelet Volume 9.4; Monocytes # (A) 0.1 k/uL (0-1.0); Monocytes % (A) 5 %; Neutrophils # (A) 1.2 k/uL (1.3-7.7); Neutrophils % (A) 49 %; Platelet Count 138 k/uL (150-450); RBC 4.15 m/uL (3.80-5.40); RDW 16.4 % (11.5-15.5); WBC 2.4 k/uL (3.8-10.6)
[2021-09-06 11:41] LABS: HGB 10.9 gm/dL (11.4-16.0); MCV 88.4 fL (80.0-100.0)
[2021-09-06 11:47] LABS: Reticulocyte % 1.5 % (0.5-2.0)
[2021-09-06 11:52] LABS: Magnesium 1.8 mg/dL (1.5-2.4)
[2021-09-06 11:52] LABS: Partial Thromboplastin Time 27.1 sec (22.0-30.0); Prothrombin Time 10.4 sec (9.0-12.0)
[2021-09-06 11:53] LABS: ALT 8 U/L (8-44); AST 21 U/L (13-35); African American GFR (CKD) 94.1 (60.0-200.0); Albumin 2.5 g/dL (3.8-4.9); Albumin/Globulin Ratio 1.05 (1.60-3.17); Alkaline Phosphatase 171 U/L (41-126); BUN/Creat Ratio 3.77 Ratio (12.00-20.00); Calcium 7.9 mg/dL (8.7-10.3); Carbon Dioxide 22.4 mmol/L (21.6-31.8); Chloride 113 mmol/L (96-109); Globulin 2.4 g/dL (1.6-3.3); Glucose 118 mg/dL (70-110); Non-African American GFR(CKD) 81.2 (60.0-200.0); Potassium 3.1 mmol/L (3.5-5.5); Sodium 142 mmol/L (135-145); Total Bilirubin <0.20 mg/dL (0.30-1.20); Total Protein 4.9 g/dL (6.2-8.2)
[2021-09-06 11:57] LABS: HGB 10.2 g/dL (12.0-15.0); MCH 25.8 pg (27.0-32.0); MCHC 28.3 g/dL (32.0-37.0); MCV 91.1 fL (80.0-97.0); Mean Platelet Volume 11.7 fL (9.5-12.2); Platelet Count 95 X 10*3/uL (140-440); RBC 3.95 X 10*6/uL (4.10-5.20); RDW 16.8 % (11.5-14.5); WBC 2.49 X 10*3/uL (4.50-10.00)
[2021-09-06 11:59] LABS: ALT 12 U/L (4-34); AST 28 U/L (14-36); African American GFR (CKD) >90 (>60 ml/min/1.73 sqM); Albumin 2.2 g/dL (3.5-5.0); Albumin/Globulin Ratio 0.8; Alkaline Phosphatase 172 U/L (38-126); Anion Gap 6 mmol/L; Blood Urea Nitrogen 2 mg/dL (7-17); Calcium 7.9 mg/dL (8.4-10.2); Carbon Dioxide 22 mmol/L (22-30); Chloride 112 mmol/L (98-107); Globulin 2.9 g/dL; Glucose 229 mg/dL (74-99); Magnesium 1.8 mg/dL (1.6-2.3); Non-African American GFR(CKD) 81 (>60 ml/min/1.73 sqM); Potassium 3.3 mmol/L (3.5-5.1); Sodium 140 mmol/L (137-145); Total Bilirubin 0.2 mg/dL (0.2-1.3); Total Protein 5.1 g/dL (6.3-8.2)
[2021-09-06 12:19] LABS: Glucose,Whole Blood 240 mg/dL (75-99)
[2021-09-06 12:33] LABS: Glucose,Whole Blood 238 mg/dL (75-99)
[2021-09-06] MEDS ORDERED: METHYLPHENIDATE HCL 5 MG TAB PO SCH (13:00)
[2021-09-06] MEDS ORDERED: POTASSIUM CHLORIDE ER 20 MEQ TAB.ER PO STA (14:39)
--- NOTE | 2021-09-06 14:50 | P.DS ---
Providers Date of admission: 09/04/21 16:27 Expected date of discharge: 09/06/21 Attending physician: River Lopez MD Consults: 09/04/21 01:00 Consult Physician Urgent Consulting Provider: Gentry Wallace Consult Reason/Comments: depression Do you want consulting provider notified?: Yes 09/05/21 12:49 Consult Physician Routine Consulting Provider: Samir Turner Consult Reason/Comments: Pancytopenia Do you want consulting provider notified?: Yes Primary care physician: [facility] Course: Discharge Diagnosis: Intractable nausea without vomiting accompanied by anorexia and abdominal bloating, improved Dehydration Elevated alkaline phosphatase, improving Hypokalemia Pancytopenia, unclear etiology Type II nrn-twsuaeb-asgqpewlk diabetes mellitus Diabetic neuropathy Rheumatoid arthritis Hospital Course: Patient is a very pleasant 61-year-old female with a past medical history of rheumatoid arthritis and neuropathy. She presented to the emergency department with a chief complaint of persistent nausea, chills, and anorexia 5 days accompanied by moderate abdominal bloating and distention. Upon arrival to the emergency department patient was found to be tachycardic with heart rate of 114 along with a low-grade temp of 99.8F orally. EKG showing sinus tachycardia at 112 bpm with periodic PVC showing no T-wave or ST abnormalities. A chest x-ray was completed negative for acute cardiopulmonary process. KUB negative for acute process showing gas and fecal material and nondistended colon with no evidence of dilation and/or obstruction revealing a nonspecific bowel gas pattern. Labs completed with CBC unremarkable and CMP with hypokalemia with potassium of 2.6 and elevated alkaline phosphatase of 238 otherwise normal liver function and pancreatic enzymes and labs showing no further significant abnormalities. Urinalysis negative for infection. Covid PCR negative. Patient admitted under our services for medical observation secondary to dehydration and intractable nausea. CT abdomen and pelvis without contrast was completed overnight which showed multiple bilateral nonobstructing renal calculi, gaseous distention of the large bowel without obstructing lesions seen likely relates to some large bowel ileus with no free air, multiple lumbar compression fractures similar to previous exams, and reported improvement in the fatty infiltration of the liver. Patient was started on simethicone 160 mg 4 times daily. During hospitalization she was found to develop mild pancytopenia and hematology was also consulted. Nausea and vomiting subsided, pt tolerating regular diet and patient having normal active bowel movements. Patient's condition has been medically stabilized and she is stable for discharge home at this time. Patient instructed she will need to follow-up with her PCP Dr. Mae, Dr. Turner Box Car Loader and Dr. Weaver Kiln Firer Helper for continued monitoring and additional labs/testing. Physical exam: Vital signs reviewed and stable. General: Nontoxic, no distress and appears stated age. Morbidly obese. Derm: Skin warm and dry, normal coloration for ethnicity. Head: Atraumatic, normocephalic and symmetric. Eyes: EOMs intact, no lid lag, and anicteric sclera Mouth: no lip lesions, mucus membranes moist Cardiovascular: regular rate and rhythm with normal S1S2, no murmur, positive posterior tibial pulses bilaterally, and cap refill < 2 seconds. Lungs: Respirations even, regular, and unlabored on room air. Lungs CTA bilaterally, no rhonchi, no rales, no wheezing, and no accessory muscle usage. Abdominal: Bowel sounds hyperactive in all 4 quadrants. Abdomen soft distended, nontender to palpation, no guarding, no appreciable organomegaly Ext: ROM intact. No gross muscle atrophy, no edema, no contractures Neuro: Speech clear, face symmetrical and CN II-XII grossly intact with no noted focal neuro deficits Psych: Alert and oriented to person, place, time, and situation. Appropriate and pleasant affect. A total of 45 minutes of time were spent preparing this complex discharge summary. Patient Condition at Discharge: Stable Plan - Discharge Summary New Discharge Prescriptions: New Simethicone Chew [Mylicon Chew] 160 mg PO QID 30 Days #240 tab Continue ARIPiprazole [Abilify] 20 mg PO HS Omeprazole 20 mg PO DAILY Folic Acid 1 mg PO DAILY Pregabalin [Lyrica] 300 mg PO BID DULoxetine HCL [Cymbalta] 60 mg PO DAILY Tocilizumab [Actemra] 0 mg SQ Q14D Glimepiride [Amaryl] 1 mg PO [facility] Discharge Medication List ARIPiprazole [Abilify] 20 mg PO HS 07/09/19 [History] Omeprazole 20 mg PO DAILY 03/31/20 [History] Folic Acid 1 mg PO DAILY 07/18/20 [History] DULoxetine HCL [Cymbalta] 60 mg PO DAILY 05/16/21 [History] Pregabalin [Lyrica] 300 mg PO BID 05/16/21 [History] Glimepiride [Amaryl] 1 mg PO AC-BRKFST 09/03/21 [History] Tocilizumab [Actemra] 0 mg SQ Q14D 09/03/21 [History] Simethicone Chew [Mylicon Chew] 160 mg PO QID 30 Days #240 tab 09/06/21 [Rx] Follow up Appointment(s)/Referral(s): Lavinia Weaver MD [STAFF PHYSICIAN] - 1 Week Noa Mae MD [Primary Care Provider] - 1-2 days Samir Turner MD [STAFF PHYSICIAN] - 1 Week Ambulatory/Diagnostic Orders: Complete Blood Count w/diff [LAB.AMB] Location: None Selected Comprehensive Metabolic Panel [LAB.AMB] Time Frame: 3 Days, Location: None Selected Magnesium [LAB.AMB] Location: None Selected Activity/Diet/Wound Care/Special Instructions: Activity: As tolerated. Take breaks as needed. Diet: Heart healthy and carb consistent diet. Avoid salts, or foods with hidden salts such as canned or boxed foods and frozen dinners. Extra salt makes your heart work harder and traps the fluid in your body for longer. Special Instructions: Take all of your medications as directed and remember to keep all of your doctor's appointments and follow-up as needed. You will need to follow up outpatient with your primary doctor, Dr. Dixie Figueroa. Dr. Turner Box Car Loader and Dr. Weaver Kil[employer] Fire[employer] Helper. Thank you for allowing us to participate in your care, it was truly a pleasure having you for our patient!!! Discharge Disposition: HOME SELF-CARE
[2021-09-06 16:36] LABS: Ferritin 20.6 ng/mL (10.0-291.0)
[2021-09-06 16:37] LABS: % Iron Saturation 6.34 (12.00-45.00)
[2021-09-07 13:47] LABS: Heparin Induced Plt Abs 0.331 OD (<0.4)
== END 2021-09-06 15:55 | disposition home or self-care (01) | DRG 392 ==
LOC: EC 12:33 → 6NMEDSUR 17:12 → OBSVTOIN 09-04 16:27
PROVIDERS: ADMIT Student in an Organized Health Care Education/Training Program; ATTEND Student in an Organized Health Care Education/Training Program
DX: R11.2 Nausea with vomiting, unspecified (principal); K56.7 Ileus, unspecified; D61.818 Other pancytopenia; R62.7 Adult failure to thrive; R00.0 Tachycardia, unspecified; E11.40 Type 2 diabetes mellitus with diabetic neuropathy, unspecified; Z20.822 Contact with and (suspected) exposure to COVID-19; E86.0 Dehydration; E87.6 Hypokalemia; F17.210 Nicotine dependence, cigarettes, uncomplicated; F32.9 Major depressive disorder, single episode, unspecified; F41.9 Anxiety disorder, unspecified; I10 Essential (primary) hypertension; I49.3 Ventricular premature depolarization; I73.00 Raynaud's syndrome without gangrene; M06.9 Rheumatoid arthritis, unspecified; N20.0 Calculus of kidney; Z79.84 Long term (current) use of oral hypoglycemic drugs; Z79.899 Other long term (current) drug therapy; Z87.19 Personal history of other diseases of the digestive system; Z89.511 Acquired absence of right leg below knee; Z96.611 Presence of right artificial shoulder joint
CPT/HCPCS: 36415; 71046; 74018; 74176; 80048; 80053; 81003; 82607; 82728; 83010; 83540; 83550; 83605; 83615; 83690; 83735; 83921; 85025; 85027; 85045; 85610; 85730; 86022; 87635; 93005; 96361; 96365; 96366; 96375; 99285

== ENCOUNTER → 2021-09-08 | Outpatient (CLI) | payer MEDICARE, OTHER ==
[2021-09-08 20:34] LABS: ALT 10 U/L (8-44); AST 24 U/L (13-35); African American GFR (CKD) 102.4 (60.0-200.0); Albumin 2.7 g/dL (3.8-4.9); Albumin/Globulin Ratio 0.99 (1.60-3.17); Alkaline Phosphatase 183 U/L (41-126); BUN/Creat Ratio 6.25 Ratio (12.00-20.00); Blood Urea Nitrogen 4.6 mg/dL (9.0-27.0); Calcium 8.1 mg/dL (8.7-10.3); Carbon Dioxide 28.8 mmol/L (21.6-31.8); Chloride 108 mmol/L (96-109); Globulin 2.7 g/dL (1.6-3.3); Glucose 119 mg/dL (70-110); Magnesium 1.8 mg/dL (1.5-2.4); Non-African American GFR(CKD) 88.4 (60.0-200.0); Potassium 2.9 mmol/L (3.5-5.5); Sodium 142 mmol/L (135-145); Total Bilirubin <0.20 mg/dL (0.30-1.20); Total Protein 5.4 g/dL (6.2-8.2)
== END | disposition home or self-care (01) ==
LOC: LABWHC1 14:35
PROVIDERS: ATTEND Nurse Practitioner
DX: R79.9 Abnormal finding of blood chemistry, unspecified (principal)
CPT/HCPCS: 36415; 80053; 83735; 85025

== ENCOUNTER 2021-09-26 18:03 | Emergency (ER) | payer MEDICARE, OTHER ==
[2021-09-26 19:50] VITALS: BP 114/69; PULSE 78; RESP 18; TEMP 99.4
[2021-09-26 20:29] LABS: Appearance,Urine Clear (Clear); Bacteria,Urine Rare /hpf; Bilirubin,Urine Negative (Negative); Blood,Urine Negative (Negative); Color,Urine Light Yellow; Glucose,Urine (UA) Negative (Negative); Ketones,Urine Negative (Negative); Leukocyte Esterase,Urine Moderate (Negative); Nitrite,Urine Negative (Negative); Protein,Urine Negative (Negative); RBC,Urine <1 /hpf (0-5); Specific Gravity,Urine 1.004 (1.001-1.035); Squamous Epithelial Cell,Urine 1 /hpf (0-4); Urobilinogen,Urine <2.0 mg/dL (<2.0); WBC,Urine 15 /hpf (0-5)
[2021-09-26] MEDS ORDERED: CEPHALEXIN 500 MG CAP PO STA (20:52)
--- NOTE | 2021-09-26 21:01 | ED ---
Female Urogenital HPI - General Chief complaint: Urogenital Stated complaint: poss UTI Time Seen by Provider: 09/26/21 19:59 Source: patient, RN notes reviewed Mode of arrival: wheelchair Limitations: physical limitation - History of Present Illness Initial comments: Patient is a 61-year-old female presenting to emergency Department with complaints of dysuria and frequency over the past 2 days. She has had UTIs in the past and feels like this is similar. She denies any fevers or chills, no abdominal pain, no nausea or vomiting. She denies any back pain. She has no further complaints at this time. - Related Data Home Medications Medication Instructions Recorded Confirmed ARIPiprazole [Abilify] 20 mg PO HS 07/09/19 09/03/21 Omeprazole 20 mg PO DAILY 03/31/20 09/03/21 Folic Acid 1 mg PO DAILY 07/18/20 09/03/21 DULoxetine HCL [Cymbalta] 60 mg PO DAILY 05/16/21 09/03/21 Pregabalin [Lyrica] 300 mg PO BID 05/16/21 09/03/21 Glimepiride [Amaryl] 1 mg PO [id number] 09/03/21 09/03/21 Tocilizumab [Actemra] 0 mg SQ Q14D 09/03/21 09/03/21 Previous Rx's Medication Instructions Recorded Simethicone Chew [Mylicon Chew] 160 mg PO QID 30 Days #240 tab 09/06/21 Cephalexin [Keflex] 500 mg PO BID 5 Days #10 cap 09/26/21 Allergies Allergy/AdvReac Type Severity Reaction Status Date / Time No Known Allergies Allergy Verified 09/26/21 19:50 Review of Systems ROS Statement: Those systems with pertinent positive or pertinent negative responses have been documented in the HPI. ROS Other: All systems not noted in ROS Statement are negative. Past Medical History Past Medical History: Diabetes Mellitus, GERD/Reflux, Hypertension, Osteoarthritis (OA), Rheumatoid Arthritis (RA), Vascular Disorder Additional Past Medical History / Comment(s): neuropathy ,Vitiligo, Raynaud's ,peripheral neuropathy. 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 History of Any Multi-Drug Resistant Organisms: MRSA Date of last positivie culture/infection: 06/11/12 MDRO Source:: lt axilla Past Surgical History: Appendectomy, Section, Joint Replacement, Orthopedic Surgery, Tonsillectomy, Tubal Ligation Additional Past Surgical History / Comment(s): right shoulder replacement, right leg BKA amputation. All teeth removed. Past Anesthesia/Blood Transfusion Reactions: No Reported Reaction Past Psychological History: Depression Smoking Status: Former smoker, Vaper Past Alcohol Use History: None Reported Past Drug Use History: None Reported - Past Family History Mother Family Medical History: No Reported History, Diabetes Mellitus, Hyperlipidemia, Hypertension Father Family Medical History: Diabetes Mellitus, Hypertension Sister(s) Family Medical History: No Reported History Son(s) Family Medical History: No Reported History General Exam - General Exam Comments Initial Comments: GENERAL: Patient is well-developed and well-nourished. Patient is nontoxic and in no acute distress. HEAD: Atraumatic, normocephalic. EYES: Pupils equal round and reactive to light, extraocular movements intact, sclera anicteric, conjunctiva are normal. Eyelids were unremarkable. ENT: Moist mucous membranes. NECK: Normal range of motion, supple without lymphadenopathy or JVD. LUNGS: Unlabored respirations. Breath sounds clear to auscultation bilaterally and equal. No wheezes rales or rhonchi. HEART: Regular rate and rhythm without murmurs, rubs or gallops. ABDOMEN: Soft, nontender, normoactive bowel sounds. No guarding, no rebound. No masses appreciated. MUSCULOSKELETAL: Normal extremities with adequate strength and normal range of motion, no pitting or edema. No clubbing or cyanosis. NEUROLOGICAL: Patient is alert and oriented x 3. SKIN: Warm, Dry, normal turgor, no rashes or lesions noted. Limitations: physical limitation Course Vital Signs 09/26/21 19:45 Temperature 99.4 F Pulse Rate 78 Respiratory 18 Rate Blood Pressure 114/69 O2 Sat by Pulse 93 L Oximetry Medical Decision Making - Medical Decision Making Patient is a 61-year-old female here with dysuria, frequency 2 days. It feels similar to her previous UTIs. No fevers, no abdominal pain. Urine shows moderate leukocyte esterase, 15 WBCs and rare bacteria. Urine culture is pending. Patient be started on Keflex. She is agreeable as planned care and she is stable for discharge. - Lab Data Lab Results 09/26/21 Range/Units 20:09 Urine Color Light Yellow Urine Appearance Clear (Clear) Urine pH 7.0 (5.0-8.0) Ur Specific [place] 1.004 (1.001-1.035) Urine Protein Negative (Negative) Urine Glucose (UA) Negative (Negative) Urine Ketones Negative (Negative) Urine Blood Negative (Negative) Urine Nitrite Negative (Negative) Urine Bilirubin Negative (Negative) Urine Urobilinogen <2.0 (<2.0) mg/dL Ur Leukocyte Esterase Moderate H (Negative) Urine RBC <1 (0-5) /hpf Urine WBC 15 H (0-5) /hpf Ur Squamous Epith Cells 1 (0-4) /hpf Urine Bacteria Rare H (None) /hpf Disposition Clinical Impression: Dysuria, UTI (urinary tract infection) Disposition: HOME SELF-CARE Condition: Stable Instructions (If sedation given, give patient instructions): Urinary Tract Infection in Women (ED) Additional Instructions: Please return to the Emergency Department if symptoms worsen or any other concerns. Take antibiotic as prescribed, finish entire course. Follow-up with your primary care physician. Prescriptions: Cephalexin [Keflex] 500 mg PO BID 5 Days #10 cap Is patient prescribed a controlled substance at d/c from ED?: No Referrals: Noa Mae MD [Primary Care Provider] - 1-2 days Time of Disposition: 21:01
== END 2021-09-26 21:10 | disposition home or self-care (01) ==
LOC: EC 18:03
DX: R30.0 Dysuria (principal); N39.0 Urinary tract infection, site not specified; E11.42 Type 2 diabetes mellitus with diabetic polyneuropathy; K21.9 Gastro-esophageal reflux disease without esophagitis; I10 Essential (primary) hypertension; M19.90 Unspecified osteoarthritis, unspecified site; F32.9 Major depressive disorder, single episode, unspecified; Z86.010 Personal history of colon polyps; Z90.49 Acquired absence of other specified parts of digestive tract; Z98.51 Tubal ligation status; Z96.611 Presence of right artificial shoulder joint; Z89.511 Acquired absence of right leg below knee; Z87.891 Personal history of nicotine dependence; Z87.19 Personal history of other diseases of the digestive system
CPT/HCPCS: 81001; 87077; 87086; 87186; 99283

== ENCOUNTER → 2021-12-01 | Outpatient (CLI) | payer MEDICARE, OTHER | END | disposition home or self-care (01) | LOC: LABWHC1 13:49 | PROVIDERS: ATTEND Family Medicine | DX: E11.9 Type 2 diabetes mellitus without complications (principal) | CPT/HCPCS: 36415; 83036 ==